=== PATIENT | male | born 1940 | race African-American/Black ===

== ENCOUNTER 2016-09-04 16:18 | Emergency (ER) | payer MEDICARE, MEDICAID ==
[~2016-09-04] VITALS: Ht 175.3 cm; Wt 84.0 kg
[~2016-09-04 16:18] MED LIST: AMLO10 PO; IRONCAP2 PO; LANTUSP SQ; NOVORP2 SQ; PRAV10 PO; STOO100T PO
[2016-09-04 16:19] VITALS: BP 213/116; PULSE 100; RESP 20; TEMP 97.7; O2SAT 99
[2016-09-04] MEDS ORDERED: PROPARACAINE HCL 0.5% OPHT SOLN 15 ML BTL LEFT EYE ONE (18:15)
--- NOTE | 2016-09-04 18:25 | PD ---
HPI Chief Complaint: Eye Problems/Injury Time Seen by Provider: 18:03 Travel History International Travel<30 days: No Contact w/Intl Traveler<30days: No Traveled to known affect area: No History of Present Illness HPI Patient is a 76 year old male who presents to ER with complaint of left sided eye irritation. Patient reports that he went to his yearly eye visit with (Dr. Pires) this morning around 8am this morning and had his eyes dilated, reports that he was told that everything was okay and that there were no new issues with his eyes. Patient reports that now, he has increased irritation to his left eye. Reports "it feels like there is junk in my left eye." Patient denies use of contacts, he does use glasses daily. Patient here for evaluation of possible FB in left eye. PFSH Past Medical History Arthritis: Yes (SHOULDERS) Blood Disorders: No Heart Rhythm Problems: No Cancer: No Cardiovascular Problems: Yes High Cholesterol: Yes Chest Pain: No Congestive Heart Failure: No Developmental Delay: Yes Diabetes: Yes (IDDM) Patient Takes Glucophage: No Diminished Hearing: Yes (need to speak up slightly) Endocrine: No Gastrointestinal Disorders: Yes GERD: No Glaucoma: No Genitourinary: No Hepatitis: No Hiatal Hernia: No Hypertension: Yes Immune Disorder: No Musculoskeletal: Yes Neurologic: No Psychiatric: No Reproductive: No Respiratory: No Immunizations Current: No Myocardial Infarction: No Thyroid Disease: No Ulcer: No Past Surgical History Surgical History: No Previous Surgery Abdominal Surgery: Yes (APPENDECTOMY 4YEARS OLD) AICD: No Appendectomy: Yes Arteriovenous Shunt: No Cardiac Surgery: No Cholecystectomy: No Ear Surgery: No Endocrine Surgery: No Eye Surgery: Yes (CATARACTS REMOVED, ) Genitourinary Surgery: No Insulin Pump: No Joint Replacement: No Oral Surgery: Yes (TOP TEETH PULLED) Pacemaker: No Thoracic Surgery: No Other Surgery: Yes Social History Alcohol Use: No Tobacco Use: No Substance Use: No Allergies-Medications (Allergen,Severity, Reaction): Coded Allergies: No Known Allergies (Verified , 09/04/16) Reported Meds & Prescriptions Reported Meds & Active Scripts Active Polymyxin B-Trimethoprim Opth (Trimethoprim-Polymyxin B Opth) 10,000-0.1 Unit/Ml -% Soln 2 Drop EACH EYE Q6HR Novolin R (Insulin Human Regular) 100 Units/Ml Inj 1-9 Units SQ TIDACHS Less than 200: No Additional Insulin 200-300: 3 Units Regular Insulin 300-400: 5 Units Regular Insulin 400-500: 7 Units Regular Insulin Greater than 500: 9 Units Regular Insulin, Call Doctor or come to ER. Reported Lantus (Insulin Glargine) 100 Units/Ml Inj 20 Units SQ DAILY@0600 Pravastatin Sodium (Pravastatin Sod) 10 Mg Tab 10 Mg PO DAILY Stool Softener (Miscellaneous Medication) 100 Mg Cap 100 Mg PO DAILY Norvasc (Amlodipine Besylate) 10 Mg Tab 10 Mg PO DAILY Iron Complex (Iron/Minerals/Multivitamins) Cap 1 Tab PO DAILY Review of Systems General / Constitutional: No: Fever Eyes: Positive: Redness, Foreign Body Sensation, Tearing, No: Diploplia, Blurred Vision, Photophobia, Drainage, Pain, Blind Spots, Visual changes, Blindness HENT: No: Headaches Cardiovascular: No: Chest Pain or Discomfort Respiratory: No: Shortness of Breath Gastrointestinal: No: Abdominal Pain Genitourinary: No: Dysuria Musculoskeletal: No: Pain Skin: No Rash Neurologic: No: Weakness Psychiatric: No: Depression Endocrine: No: Polydipsia Hematologic/Lymphatic: No: Easy Bruising Physical Exam Narrative GENERAL: Nad SKIN: Focused skin assessment warm/dry. HEAD: Atraumatic. Normocephalic. EYES: Pupils equal and round.Patient with injected left eye, no obvious FB ENT: No nasal bleeding or discharge. Mucous membranes pink and moist. CARDIOVASCULAR: Regular rate and rhythm. No murmur appreciated. RESPIRATORY: No accessory muscle use. Clear to auscultation. Breath sounds equal bilaterally. GASTROINTESTINAL: Abdomen soft, non-tender, nondistended. Hepatic and splenic margins not palpable. MUSCULOSKELETAL: No obvious deformities. No clubbing. No cyanosis. No edema. NEUROLOGICAL: Awake and alert. Normal speech. PSYCHIATRIC: Appropriate mood and affect; insight and judgment normal. Data Data Last Documented VS Vital Signs Date Time Temp Pulse Resp B/P Pulse Ox O2 Delivery O2 Flow Rate FiO2 09/04/16 16:19 97.7 100 20 213/116 99 Room Air Orders Proparacaine 0.5% Opth Soln (Alcaine 0.5 (09/04/16 18:15) Eye Irrigation (09/04/16 18:15) ^ Other Nursing Orders (09/04/16 18:21) Tetanus/Diphtheria Tox Adult (Tetanus/Di (09/04/16 19:30) MDM Medical Decision Making Medical Screen Exam Complete: Yes Emergency Medical Condition: Yes Interpretation(s) Vital Signs Date Time Temp Pulse Resp B/P Pulse Ox O2 Delivery O2 Flow Rate FiO2 09/04/16 16:19 97.7 100 20 213/116 99 Room Air Differential Diagnosis Foreign-body to left eye, conjunctival abrasion Narrative Course Patient is a 76-year-old male who presents to emergency room with complaints of left-sided eye foreign body sensation. Patient reports that he went to his agile scrum coach office today for an eye exam, reports that he had his eyes dilated around 8 AM this morning with Dr. Marlow, reports that he was told that there were no problems with his vision. Patient reports that this afternoon, he feels as if there is a foreign body and his left eye. On gross exam, there is no obvious foreign bodies seen. Plan to obtain visual acuity with glasses as patient does wear glasses not contacts. Will stain patient's eyes with flourisein and will check for corneal abrasions On flouriscein exam: patient with small corneal abrasion with no FB on eversion upper and lower eyelid. Discussed need for antibiotics. Patient will follow up with his agile scrum coach and will return to emergency room as needed. Diagnosis Primary Impression: Corneal abrasion, left Qualified Code: S05.02XA - Corneal abrasion, left, initial encounter Additional Instructions: Please follow-up with your agile scrum coach in 2-3 days Please use antibiotic eyedrops as prescribed Return to emergency room if symptoms worsen or progress Return to emergency room as needed Med/Other Pt SpecificInfo: Prescription(s) given Scripts Trimethoprim-Polymyxin B Opth (Polymyxin B-Trimethoprim Opth)10,000-0.1 Unit/Ml- % Soln2 Drop EACH EYE Q6HR #10 ML Prov:Radha Poole DO 09/04/16 Disposition: 01 DISCHARGE HOME Condition: Stable Radha Poole DO Sep 04, 2016 18:25
[2016-09-04] MEDS ORDERED: TRIMSOL3 EACH EYE (19:24)
[2016-09-04] MEDS ORDERED: TETANUS/DIPHTHERIA TOXOID ADULT 0.5 ML VIAL IM ONE (19:30)
== END 2016-09-04 19:54 | disposition home or self-care (01) ==
LOC: NEPD 16:18
DX: S05.02XA Injury of conjunctiva and corneal abrasion without foreign body, left eye, initial encounter (principal); X58.XXXA Exposure to other specified factors, initial encounter; Z23 Encounter for immunization
CPT/HCPCS: 90471; 90714

== ENCOUNTER 2017-02-19 11:25 | Inpatient (IN) | payer MEDICARE, MEDICAID ==
[2017-02-19] VITALS (11 sets, daily range): BP systolic 125–153; BP diastolic 76–92; PULSE 90–100; RESP 18–36; TEMP 97.7; O2SAT 96–100
[~2017-02-19] VITALS: Ht 180.3 cm; Wt 86.4 kg
[~2017-02-19 11:25] MED LIST changes: +TRIMSOL3 EACH EYE
[2017-02-19] MEDS ORDERED: HYDR-755 PO ×2 (11:48)
[2017-02-19] MEDS ORDERED: PRAV10TA PO ×2 (11:48)
[2017-02-19] MEDS ORDERED: MELO7.5T4 PO ×2 (11:48)
[2017-02-19] MEDS ORDERED: LEVO250T7 PO ×2 (11:48)
[2017-02-19] MEDS ORDERED: LANTUS2P SQ ×2 (11:48)
[2017-02-19] MEDS ORDERED: AMLO10TA2 PO ×2 (11:48)
[2017-02-19] MEDS ORDERED: SODIUM CHLOR 0.9% 1000 ML INJ 1,000 ML IV SCH ×4 (12:05→13:35)
[2017-02-19] MEDS ORDERED: SODIUM CHLOR 0.9% 1000 ML INJ 1,000 ML IV ONE ×8 (12:15→17:00)
[2017-02-19] MEDS ORDERED: SODIUM CHLORIDE 0.9% FLUSH 5 ML FLUSH IV FLUSH PRN ×2 (12:15)
[2017-02-19] MEDS ORDERED: INSULIN HUMAN REGULAR 1,000 UNITS/10 ML VIAL IV PUSH ONE ×2 (12:15)
--- NOTE | 2017-02-19 12:37 | RADRPT ---
EXAM DATE/TIME: 02/19/2017 12:16 [facility] COMPARISON: CHEST SINGLE AP, February 26, 2016, 10:42. INDICATIONS : Syncope. Found unresponsive in his apartment. MEDICAL HISTORY : None. SURGICAL HISTORY : None. ENCOUNTER: Initial ACUITY: 1 day PAIN SCORE: Non-responsive. LOCATION: Bilateral chest FINDINGS: 2 portable frontal views of the chest demonstrate the lungs to be symmetrically aerated without evide nce of mass, infiltrate or effusion. The cardiomediastinal contours are unremarkable. Osseous struc tures are intact. CONCLUSION: No acute disease. Dontrell Mcqueen Jr., MD on February 19, 2017 at 12:34 Board Certified Radiologist. This report was verified electronically.
[2017-02-19 12:51] LABS: AUTOMATED NEUTROPHIL # 7.6 TH/MM3 (1.8-7.7); BASOPHIL % 0.1 % (0.0-2.0); HEMATOCRIT 33.8 % (39.0-51.0); HEMOGLOBIN 10.6 GM/DL (13.0-17.0); LYMPH % 6.2 % (9.0-44.0); LYMPHOCYTE # 0.6 TH/MM3 (1.0-4.8); MEAN CELL VOLUME 94.8 FL (80.0-100.0); MEAN CORPUSCULAR HEMOGLOBIN 29.6 PG (27.0-34.0); MEAN CORPUSCULAR HGB CONC 31.3 % (32.0-36.0); MEAN PLATELET VOLUME 11.1 FL (7.0-11.0); MONO % 7.5 % (0.0-8.0); MONOCYTE # 0.7 TH/MM3 (0-0.9); NEUT % 86.2 % (16.0-70.0); RED BLOOD COUNT 3.57 MIL/MM3 (4.50-5.90); RED CELL DISTRIBUTION WIDTH 16.8 % (11.6-17.2); WHITE BLOOD COUNT 8.9 TH/MM3 (4.0-11.0)
[2017-02-19 12:54] LABS: LACTIC ACID SEPSIS PROTOCOL 4.3 mmol/L (0.4-2.0)
[2017-02-19 12:57] LABS: PROTHROMBIN TIME - PATIENT 22.9 SEC (9.8-11.6)
[2017-02-19 12:59] LABS: AMORPHOUS SEDIMENT, URINE RARE; BACTERIA, URINE RARE /hpf; BLOOD, URINE MOD (NEG); GLUCOSE,URINE 300 mg/dL (NEG); HYALINE CAST, URINE 12 /lpf (RARE); KETONE, URINE 10 mg/dL (NEG); NITRITE,URINE NEG (NEG); PH, URINE 5.5 (5.0-8.5); SQUAMOUS EPITHELIAL CELL URINE <1 /hpf (0-5); URINE COLOR YELLOW (YELLW/STRAW); URINE LEUKOCYTE ESTERASE NEG (NEG)
[2017-02-19 13:02] LABS: BILIRUBIN, URINE NEG (NEG)
[2017-02-19 13:06] LABS: ALBUMIN 2.8 GM/DL (3.4-5.0); BICARBONATE 17.8 MEQ/L (21.0-32.0); BLOOD UREA NITROGEN 93 MG/DL (7-18); CALCIUM 8.6 MG/DL (8.5-10.1); CHLORIDE 114 MEQ/L (98-107); SODIUM (NA) 147 MEQ/L (136-145)
[2017-02-19 13:12] LABS: PLATELET COUNT 97 TH/MM3 (150-450)
[2017-02-19 13:15] LABS: ACETAMINOPHEN LESS THAN 2.0 MCG/ML (10.0-30.0); ALKALINE PHOSPHATASE 57 U/L (45-117); ALT (GPT) 351 U/L (12-78); AST (GOT) 261 U/L (15-37); GLOMERULAR FILTRATION RATE 13 ML/MIN (>89); TOTAL BILIRUBIN ADULT 0.9 MG/DL (0.2-1.0); TOTAL PROTEIN 7.1 GM/DL (6.4-8.2)
[2017-02-19 13:18] LABS: GLUCOSE,RANDOM 592 MG/DL (74-106)
[2017-02-19 13:19] LABS: TROPONIN I 1.88 NG/ML (0.02-0.05)
--- NOTE | 2017-02-19 13:30 | RADRPT ---
EXAM DATE/TIME: 02/19/2017 13:02 [facility] COMPARISON: CT BRAIN W/O CONTRAST, April 17, 2012, 13:32. INDICATIONS : Altered mental status. RADIATION DOSE: 56.35 CTDIvol (mGy) MEDICAL HISTORY : Cardiovascular disease. Hypertension. Diabetes mellitus type 2. SURGICAL HISTORY : None. ENCOUNTER: Initial ACUITY: 1 day PAIN SCALE: 0/10 LOCATION: cranial TECHNIQUE: Multiple contiguous axial images were obtained of the head. Using automated exposure control and adj ustment of the mA and/or kV according to patient size, radiation dose was kept as low as reasonably a chievable to obtain optimal diagnostic quality images. DICOM format image data is available electro nically for review and comparison. FINDINGS: CEREBRUM: The ventricles are normal for age. There is mild diffuse cortical atrophy. No evidence of midline sh ift, mass lesion, hemorrhage or acute infarction. No extra-axial fluid collections are seen. POSTERIOR FOSSA: The cerebellum and brainstem are intact. The 4th ventricle is midline. The cerebellopontine angle i s unremarkable. EXTRACRANIAL: The visualized portion of the orbits is intact. SKULL: The calvaria is intact. No evidence of skull fracture. CONCLUSION: 1. Cortical atrophy. 2. No acute abnormality identified. The examination is stable compared to prior dated 04/17/12. Sharath Wang MD on February 19, 2017 at 13:27 Board Certified Radiologist. This report was verified electronically.
[2017-02-19] MEDS ORDERED: DEXT 5%-NACL 0.9% 1000 ML INJ 1,000 ML IV SCH ×2 (13:35)
[2017-02-19 13:40] LABS: OVALOCYTES 1+ (NORMAL)
[2017-02-19] MEDS ORDERED: SODIUM PHOSPHATE INJ 15 MMOL in SODIUM CHLORIDE 0.9% INJ 100 ML IV PRN ×4 (13:45)
[2017-02-19] MEDS ORDERED: CHLORHEXIDINE GLUCONATE 2 % 1 PACK (2 CLOTHS) TOP PRN ×4 (13:45→14:15)
[2017-02-19] MEDS ORDERED: SODIUM BICARBONATE 8.4% SOLN 50 MEQ/50 ML VIAL IV PUSH PRN ×4 (13:45)
[2017-02-19] MEDS ORDERED: MISCELLANEOUS NURSING INFORMATION XX SCH ×4 (13:45→14:15)
[2017-02-19] MEDS ORDERED: SENNOSIDES 8.6 MG TAB PO PRN ×2 (14:15)
[2017-02-19] MEDS ORDERED: RESP: ALBUTEROL 2.5 MG/IPRATROPIUM 0.5 MG NEB (PRN) INH ×2 (14:15)
[2017-02-19] MEDS ORDERED: MAGNESIUM HYDROXIDE SUSP 30 ML CUP PO PRN ×2 (14:15)
[2017-02-19] MEDS ORDERED: SODIUM CHLORIDE 0.9% FLUSH 10 ML FLUSH IV FLUSH PRN ×2 (14:15)
[2017-02-19] MEDS ORDERED: BISACODYL 10 MG SUPP RECTAL PRN ×2 (14:15)
[2017-02-19] MEDS ORDERED: LACTULOSE SYRUP 20 GM/30 ML CUP PO PRN ×2 (14:15)
--- NOTE | 2017-02-19 14:16 | PD ---
HPI Chief Complaint: Altered Mental Status Time Seen by Provider: 12:04 Travel History International Travel<30 days: No Contact w/Intl Traveler<30days: No Traveled to known affect area: No History of Present Illness HPI 77-year-old male came to the emergency room with history of being found down in his apartment. Unknown down time. Patient was altered mental status with a GCS of 13 as per EMS. He was in extremely poor hygiene state. Patient was unable to give much history. He follows commands to some extent but does not know what happened to him. Currently there are no family members to give any more history. EMS said his blood sugar was 560. Vital signs were otherwise stable. They did notice that he was tachypnea. Patient is a known diabetic and he had some Lantus insulin in his refrigerator. Patient did say that he has been using his insulin. [facility] Past Medical History Narrative Medical List of his past medical, surgical, social and family history is reviewed from the nursing note. Arthritis: Yes (SHOULDERS) Blood Disorders: No Heart Rhythm Problems: No Cancer: No Cardiovascular Problems: Yes High Cholesterol: Yes Chest Pain: No Congestive Heart Failure: No Developmental Delay: Yes Diabetes: Yes (IDDM) Patient Takes Glucophage: No Diminished Hearing: Yes (need to speak up slightly) Endocrine: No Gastrointestinal Disorders: Yes GERD: No Glaucoma: No Genitourinary: No Hepatitis: No Hiatal Hernia: No Hypertension: Yes Immune Disorder: No Musculoskeletal: Yes Neurologic: No Psychiatric: No Reproductive: No Respiratory: No Immunizations Current: No Myocardial Infarction: No Thyroid Disease: No Ulcer: No Tetanus Vaccination: < 5 Years Past Surgical History Abdominal Surgery: Yes (APPENDECTOMY 4YEARS OLD) AICD: No Appendectomy: Yes Arteriovenous Shunt: No Cardiac Surgery: No Cholecystectomy: No Ear Surgery: No Endocrine Surgery: No Eye Surgery: Yes (CATARACTS REMOVED, ) Genitourinary Surgery: No Insulin Pump: No Joint Replacement: No Oral Surgery: Yes (TOP TEETH PULLED) Pacemaker: No Thoracic Surgery: No Other Surgery: Yes Social History Alcohol Use: No Tobacco Use: No Substance Use: No Allergies-Medications (Allergen,Severity, Reaction): Coded Allergies: No Known Allergies (Verified , 02/19/17) Comments No known drug allergies. Reported Meds & Prescriptions Reported Meds & Active Scripts Active Reported Levofloxacin 250 Mg Tablet 250 Mg PO DAILY Meloxicam 7.5 Mg Tab 7.5 Mg PO DAILY Hydroxyzine HCl 10 Mg Tab 10 Mg PO TID Lantus Inj (Insulin Glargine) 1,000 Unit/10 Ml Vial 20 Units SQ HS Pravastatin 10 Mg Tab 10 Mg PO DAILY Amlodipine (Amlodipine Besylate) 10 Mg Tab 10 Mg PO DAILY Narrative Medication List of his home medications reviewed from the nursing note. Review of Systems ROS Limitations: Altered Mental Status Except as stated in HPI: all other systems reviewed are Neg Neurologic: Positive: Change in Mentation Physical Exam Narrative GENERAL: Altered mental status, GCS of 12, moderate distress SKIN: Focused skin assessment warm/dry. Extremely poor hygienic state HEAD: Atraumatic. Normocephalic. EYES: Pupils equal and round. No scleral icterus. No injection or drainage. ENT: No nasal bleeding or discharge. Dry mucous membrane and coated tongue, halitosis NECK: Trachea midline. No JVD. CARDIOVASCULAR: Regular rate and rhythm. No murmur appreciated. RESPIRATORY: No accessory muscle use. Clear to auscultation. Breath sounds equal bilaterally. GASTROINTESTINAL: Abdomen soft, non-tender, nondistended. Hepatic and splenic margins not palpable. MUSCULOSKELETAL: No obvious deformities. No clubbing. No cyanosis. No edema. NEUROLOGICAL: GCS of 12. Moving all 4 extremities. Slurred speech. PSYCHIATRIC: Unable to assess Data Data Last Documented VS Vital Signs Date Time Temp Pulse Resp B/P (MAP) Pulse Ox O2 Delivery O2 Flow Rate FiO2 02/19/17 13:00 96 18 145/76 (99) 97 Nasal Cannula 2.00 Orders Orders Electrocardiogram (02/19/17 12:05) Ammonia (02/19/17 12:05) Complete Blood Count With Diff (02/19/17 12:05) Comprehensive Metabolic Panel (02/19/17 12:05) Creatine Kinase (Cpk) (02/19/17 12:05) Prothrombin Time / Inr (Pt) (02/19/17 12:05) Troponin I (02/19/17 12:05) Thyroid Stimulating Hormone (02/19/17 12:05) Urinalysis - C+S If Indicated (02/19/17 12:05) Lactic Acid Sepsis Protocol (02/19/17 12:05) Blood Culture (02/19/17 12:05) Chest, Single Ap (02/19/17 12:05) Ct Brain W/O Iv Contrast(Rout) (02/19/17 12:05) Blood Glucose (02/19/17 12:05) Ecg Monitoring (02/19/17 12:05) Iv Access Insert/Monitor (02/19/17 12:05) Oximetry (02/19/17 12:05) Sodium Chloride 0.9% Flush (Ns Flush) (02/19/17 12:15) Sodium Chlor 0.9% 1000 Ml Inj (Ns 1000 M (02/19/17 12:05) Drug Screen, Random Urine (02/19/17 12:05) Alcohol (Ethanol) (02/19/17 12:05) Tylenol (Acetaminophen) (02/19/17 12:05) Salicylates (Aspirin) (02/19/17 12:05) Sodium Chlor 0.9% 1000 Ml Inj (Ns 1000 M (02/19/17 12:15) Blood Gas Venous (Vbg) (02/19/17 12:05) Beta Hydroxybutyrate (Acetone) (02/19/17 12:05) Magnesium (Mg) (02/19/17 12:07) Insulin Human Regular Inj (Novolin R Inj (02/19/17 12:15) Urinary Catheter Insert/Apply (02/19/17 12:43) Restraints Non-Violent SHANTA.Q3H (02/19/17 12:43) Sodium Chlor 0.9% 1000 Ml Inj (Ns 1000 M (02/19/17 13:00) Urine Culture (02/19/17 12:10) CKMB (02/19/17 12:05) CKMB% (02/19/17 12:05) Admit To Inpatient (02/19/17 ) Substance Abuse Prevention Coordinator / Telemetry SHANTA.Q8H (02/19/17 13:35) ^ Insert Iv (02/19/17 13:35) ^ Teach Patient (02/19/17 13:35) Diet Npo (02/19/17 Lunch) Bedside Glucose SHANTA.Q1H (02/19/17 13:35) Sodium Chlor 0.9% 1000 Ml Inj (Ns 1000 M (02/19/17 13:35) Dext 5%-Nacl 0.9% 1000 Ml Inj (D5w-Ns 10 (02/19/17 13:35) Insulin Regular (Iv Infusion) (Novolin R (02/19/17 15:00) Sodium Bicarbonate 8.4% Inj (Sodium Bica (02/19/17 13:45) Sodium Bicarbonate 8.4% Inj (Sodium Bica (02/19/17 13:45) Sodium Phosphate Inj (Sodium Phosphate I (02/19/17 13:45) Basic Metabolic Panel (Bmp) (02/20/17 06:35) Basic Metabolic Panel (Bmp) (02/20/17 12:35) Magnesium (Mg) (02/20/17 00:35) Magnesium (Mg) (02/20/17 06:35) Magnesium (Mg) (02/20/17 12:35) Phosphorus (Po4) (02/20/17 00:35) Phosphorus (Po4) (02/20/17 06:35) Phosphorus (Po4) (02/20/17 12:35) Beta Hydroxybutyrate (Acetone) (02/20/17 00:35) Beta Hydroxybutyrate (Acetone) (02/20/17 12:35) ^ Initiate Protocol (02/19/17 13:35) Instruction (02/19/17 13:35) [facility] [place] (02/19/17 13:45) Chlorhexidine 2% Cloth (Chlorhexidine 2% (02/20/17 04:00) Chlorhexidine 2% Cloth (Chlorhexidine 2% (02/19/17 13:45) Mrsa Pcr Surveillance (02/19/17 13:35) Urinary Catheter Management SHANTA.Q8H (02/19/17 14:10) Consult Cardiology (02/19/17 ) Admit Order (Ed Use Only) (02/19/17 14:17) Piperacil-Tazo 4.5 Gm Premix (Zosyn 4.5 (02/19/17 14:30) Vancomycin Inj (Vancomycin Inj) (02/19/17 14:30) Admit To Inpatient (02/19/17 ) Code Status (02/19/17 14:12) Vital Signs (Adult) SHANTA.Q1H (02/19/17 14:12) Activity Bed Rest (02/19/17 14:12) Urinary Catheter Management SHANTA.Q8H (02/19/17 15:00) Diet Npo (02/19/17 Dinner) Sodium Chloride 0.9% Flush (Ns Flush) (02/19/17 14:15) Sodium Chloride 0.9% Flush (Ns Flush) (02/19/17 21:00) Pantoprazole Inj (Protonix Inj) (02/20/17 09:00) Albuterol-Ipratropium Neb (Duoneb Neb) (02/19/17 16:00) Albuterol-Ipratropium Neb (Duoneb Neb) (02/19/17 14:15) Complete Blood Count With Diff (02/20/17 04:00) Comprehensive Metabolic Panel (02/20/17 04:00) Troponin I (02/19/17 14:12) Troponin I (02/19/17 20:12) Consult Nephrology (02/19/17 ) Substance Abuse Prevention Coordinator / Telemetry SHANTA.Q8H (02/19/17 14:12) Heparin Inj (Heparin Inj) (02/19/17 17:00) Scd Bilateral/Knee High SHANTA.BID (02/19/17 14:12) Harish Bilateral/Knee High SHANTA.QSHIFT (02/19/17 15:00) ^ Initiate Protocol (02/19/17 14:12) Instruction (02/19/17 14:12) Misc Nursing Information (02/19/17 14:15) Chlorhexidine 2% Cloth (Chlorhexidine 2% (02/20/17 04:00) Chlorhexidine 2% Cloth (Chlorhexidine 2% (02/19/17 14:15) Mrsa Pcr Surveillance (02/19/17 14:12) Docusate Sodium-Senna (Princess-Colace) (02/19/17 21:00) Magnesium Hydroxide Liq (Milk Of Magnesi (02/19/17 14:15) Sennosides (Senokot) (02/19/17 14:15) Bisacodyl Supp (Dulcolax Supp) (02/19/17 14:15) Lactulose Liq (Lactulose Liq) (02/19/17 14:15) Inpatient Certification (02/19/17 ) Basic Metabolic Panel (Bmp) (02/19/17 20:58) Magnesium (Mg) (02/19/17 20:58) Phosphorus (Po4) (02/19/17 20:58) Labs Laboratory Tests Test 02/19/17 12:05 02/19/17 12:10 02/19/17 12:23 White Blood Count 8.9 TH/MM3 Red Blood Count 3.57 MIL/MM3 Hemoglobin 10.6 GM/DL Hematocrit 33.8 % Mean Corpuscular Volume 94.8 FL Mean Corpuscular Hemoglobin 29.6 PG Mean Corpuscular Hemoglobin Concent 31.3 % Red Cell Distribution Width 16.8 % Platelet Count 97 TH/MM3 Mean Platelet Volume 11.1 FL Neutrophils (%) (Auto) 86.2 % Lymphocytes (%) (Auto) 6.2 % Monocytes (%) (Auto) 7.5 % Eosinophils (%) (Auto) 0.0 % Basophils (%) (Auto) 0.1 % Neutrophils # (Auto) 7.6 TH/MM3 Lymphocytes # (Auto) 0.6 TH/MM3 Monocytes # (Auto) 0.7 TH/MM3 Eosinophils # (Auto) 0.0 TH/MM3 Basophils # (Auto) 0.0 TH/MM3 CBC Comment AUTO DIFF Differential Comment AUTO DIFF CONFIRMED Platelet Estimate LOW Platelet Morphology Comment ENLARGED Ovalocytes 1+ Prothrombin Time 22.9 SEC Prothromb Time International Ratio 2.0 RATIO Blood Urea Nitrogen 93 MG/DL Creatinine 5.30 MG/DL Random Glucose 592 MG/DL Total Protein 7.1 GM/DL Albumin 2.8 GM/DL Calcium Level 8.6 MG/DL Alkaline Phosphatase 57 U/L Aspartate Amino Transf (AST/SGOT) 261 U/L Alanine Aminotransferase (ALT/SGPT) 351 U/L Total Bilirubin 0.9 MG/DL Sodium Level 147 MEQ/L Potassium Level 5.5 MEQ/L Chloride Level 114 MEQ/L Carbon Dioxide Level 17.8 MEQ/L Anion Gap 15 MEQ/L Estimat Glomerular Filtration Rate 13 ML/MIN Lactic Acid Level 4.3 mmol/L Ammonia 28 MCMOL/L Total Creatine Kinase 476 U/L Creatine Kinase MB 2.4 NG/ML Creatine Kinase MB % 0.5 % Troponin I 1.88 NG/ML Thyroid Stimulating Hormone 3rd Gen 1.280 uIU/ML Acetaminophen Level LESS THAN 2.0 MCG/ML Ethyl Alcohol Level LESS THAN 3 MG/DL B-Hydroxybutyrate 4.74 MMOL/L Urine Color YELLOW Urine Turbidity HAZY Urine pH 5.5 Urine Specific [place] 1.019 Urine Protein 300 mg/dL Urine Glucose (UA) 300 mg/dL Urine Ketones 10 mg/dL Urine Occult Blood MOD Urine Nitrite NEG Urine Bilirubin NEG Urine Urobilinogen 2.0 MG/DL Urine Leukocyte Esterase NEG Urine RBC 6 /hpf Urine WBC 3 /hpf Urine Squamous Epithelial Cells <1 /hpf Urine Amorphous Sediment RARE Urine Bacteria RARE /hpf Urine Hyaline Casts 12 /lpf Microscopic Urinalysis Comment CATH-CULTURE IND Urine Random Creatinine 299 MG/DL Urine Microalbumin/Creatinine Ratio 1204 MG/G CRE Magnesium Level 2.4 MG/DL Salicylates Level LESS THAN 1.7 MG/DL Urine Opiates Screen NEG Urine Barbiturates Screen NEG Urine Amphetamines Screen NEG Urine Benzodiazepines Screen NEG Urine Cocaine Screen NEG Urine Cannabinoids Screen NEG Blood Gas Puncture Site LINE Blood Gas Patient Temperature 98.6 Venous Blood pH 7.32 Venous Blood Partial Pressure CO2 30 mmHg Venous Blood Partial Pressure O2 33 mmHg Venous Blood HCO3 15 mmol/L Venous Blood Oxygen Saturation 46 % Venous Blood Oxygen Content 6.4 Vol % Venous Blood Base Excess -10.2 mmol/L Oxygen Delivery Device NASAL CANNULA Blood Gas Liter Flow 2 L/M MDM Medical Decision Making Medical Screen Exam Complete: Yes Emergency Medical Condition: Yes Medical Record Reviewed: Yes Interpretation(s) Twelve-lead EKG was reviewed by me. Normal sinus rhythm, normal axis, tachycardia, lateral ST depression and T-wave inversion, inferior T wave inversions. Heart rate of 101 bpm. Differential Diagnosis Sepsis, dehydration, intracranial bleed, DKA Narrative Course 2:13 PM Due to poor peripheral IV access capabilities, I decided to insert a central line. Please refer to my procedure note below. Blood test results are back. Patient is in acute renal failure. Also hypernatremic dehydration. UA suggestive of UTI. Troponin is elevated. Chest x-ray shows the central line to be in good position. Head CT was negative. Patient was given 3 L of IV fluid bolus upon arrival. Patient was also given Zosyn and vancomycin as sepsis protocol. He was given 10 units of insulin IV initially. Repeat blood sugar was 485. PH in his VBG was acidotic. I started him on insulin drip which is ordered for DKA. 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 Critical Care Narrative Aggregate critical care time was 75 minutes. Time to perform other separately billable procedures was not included in the critical care time. My time did not include minutes spent treating any other patients simultaneously or on activities that did not directly contribute to the patient's treatment. The services I provided to this patient were to treat and/or prevent clinically significant deterioration that could result in: Altered mental status, dehydration, acute renal failure, sepsis, sepsis protocol, DKA I provided critical care services requiring my management, as noted below: Chart data review, documentation time, medication orders and management, vital sign assessments/reviewing monitor data, ordering and reviewing lab tests, ordering and interpreting/reviewing x-rays and diagnostic studies, care of the patient and discussion of the patient with the admitting physicians. Procedures Procedure Narrative CENTRAL VENOUS LINE: The site was prepped with Betadine and sterilely draped. It was infiltrated with 1% lidocaine plain. The deep vein was cannulated using normal Seldinger technique. A triple lumen central line was placed in the left subclavian site and secured with simple interrupted suture. The site was sterilely dressed. The patient tolerated the procedure well. EKG Prior to Arrival: No Sepsis Criteria SIRS Criteria (2 or more): Heart rate over 90, RR > 20 or PaCO2 < 32 Sepsis Criteria (SIRS+source): Infect source susp/known Severe Sepsis (+one): Lactate >2, Acute Oliguria/Renal Failure Septic Shock Criteria: Lactic acid >=4 Criteria Outcome: Meets sepsis criteria Physician Communication Physician Communication Dr. Fraga Diagnosis Primary Impression: DKA (diabetic ketoacidoses) Qualified Codes: E10.11 - Type 1 diabetes mellitus with ketoacidosis with coma Additional Impressions: Altered mental status Qualified Codes: R40.0 - Somnolence Acute renal failure Qualified Codes: N17.9 - Acute kidney failure, unspecified Non-STEMI (non-ST elevated myocardial infarction) Dehydration with hypernatremia Sepsis Qualified Codes: A41.9 - Sepsis, unspecified organism UTI (urinary tract infection) Qualified Codes: N39.0 - Urinary tract infection, site not specified Admitting Information Admitting Physician Requests: Em Andrew MD Feb 19, 2017 14:16
[2017-02-19] MEDS ORDERED: VANCOMYCIN INJ 1,000 MG in SODIUM CHLOR 0.9% 250 ML INJ 250 ML IV ONE ×4 (14:30)
[2017-02-19] MEDS ORDERED: PIPERACIL-TAZO 4.5 GM PREMIX 100 ML IV ONE ×2 (14:30)
[2017-02-19] MEDS: INSULIN REGULAR (IV INFUSION) 100 UNITS in SODIUM CHLORIDE 0.9% INJ 99 ML IV SCH ×4 (14:37)
--- NOTE | 2017-02-19 14:54 | EKG ---
Date Performed: 02/19/2017 Time Performed: 12:07:55 PTAGE: 77 years EKG: SINUS TACHYCARDIA POSSIBLE LEFT ATRIAL ENLARGEMENT BORDERLINE RIGHT AXIS DEVIATION NONSPECI FIC INTRAVENTRICULAR CONDUCTION DELAY ST/ T-WAVE ABNORMALITY, CONSIDER INFERIOR ISCHEMIA ABNORMAL ECG PREVIOUS TRACING : 02/26/2016 10.55 Compared to previous tracing, PVCs are no longer present, l ateal ST/T changes are now slightly more pronounced, heart rate has increased. DOCTOR: Danny Sosa Interpretating Date/Time 02/19/2017 14:52:47
--- NOTE | 2017-02-19 15:04 | HHI.HP ---
[facility] Service Critical Care Medicine Primary Care Physician Unknown Admission Diagnosis AMS, acute renal failure, non-STEMI, hypernatremic dehydration Diagnosis: (1) Acute metabolic encephalopathy Diagnosis: Principal (2) Altered mental status Diagnosis: Principal (3) DKA (diabetic ketoacidoses) Diagnosis: Principal (4) Non-STEMI (non-ST elevated myocardial infarction) Diagnosis: Principal (5) Dehydration with hypernatremia Diagnosis: Principal (6) Sepsis Diagnosis: Principal (7) UTI (urinary tract infection) Diagnosis: Principal (8) Acute renal failure Diagnosis: Principal (9) Hyperglycemia Diagnosis: Principal (10) Lactic acidemia Diagnosis: Principal (11) Transaminitis Diagnosis: Principal (12) Respiratory insufficiency Diagnosis: Principal Chief Complaint: Altered mental status, DKA Travel History International Travel<30 Days: No Contact w/Intl Traveler <30 Da: No Traveled to Known Affected Are: No Sepsis Criteria SIRS Criteria (2 or more): Heart rate over 90, RR > 20 or PaCO2 < 32 Sepsis Criteria (SIRS+source): Infect source susp/known Severe Sepsis (+one): Acute Oliguria/Renal Failure Septic Shock Criteria: Lactic acid >=4 Multiple Organ Dysfunction Syn: Evidence -2 organs failing Criteria Outcome: Meets severe sepsis criteria History of Present Illness 77-year-old male with past medical history significant for type 2 diabetes on insulin, hypertension, dyslipidemia, questionable developmental delay who was brought to the emergency room after being found down in his apartment. Down time is unknown, was last seen normal on Thursday. GCS of 12-13 as per EMS, with very poor hygiene. EMS checked blood sugar and was 560. Patient was tachypneic in the ER. Clinically appeared very dehydrated, and was found to be in acute renal failure (baseline creat 1.8 to 2). BUN 93 creatinine 5.3. Patient was given 3 L normal saline boluses. Other abnormal labs included hemoglobin of 10.6, platelet 97, sodium 147 and a potassium of 5.5. Glucose was 592 AST was 261 and AST 351 and troponin was 1.88. Head CT was negative. Patient's beta hydroxybutyrate was elevated and anion gap was also elevated. Patient was given 10 units of IV insulin and was started on DKA protocol. Also given vancomycin and Zosyn for possible sepsis/UTI. I evaluated the patient in the ED. He is tachypneic intermittently. Oral mucosa is very dry and he has a garbled speech. Clinically very dehydrated. Additional fluid boluses ordered. His lactic acid came back at 4.4. Daughter is at the bedside she claims that patient was seen normally on Thursday. Patient will be admitted to ICU with broad-spectrum antibiotics, insulin infusion per DKA protocol, and aggressive fluid resuscitation. Nephrology and cardiology consults placed for acute renal failure and troponin elevation/non- ST elevation [place]. EKG showed poor R-wave progression and inferolateral T inversions. Patient was given aspirin. If troponin is also elevated and will start on IV heparin Review of Systems ROS Limitations: Altered Mental Status Past Family Social History Allergies: Coded Allergies: No Known Allergies (Verified , 02/19/17) Past Medical History Type 2 diabetes Hypertension Dyslipidemia Possible developmental delay Past Surgical History Cataract extraction Dental extraction Appendectomy Reported Medications Levofloxacin 250 Mg Tablet 250 Mg PO DAILY Meloxicam 7.5 Mg Tab 7.5 Mg PO DAILY Hydroxyzine HCl 10 Mg Tab 10 Mg PO TID Lantus Inj (Insulin Glargine) 1,000 Unit/10 Ml Vial 20 Units SQ HS Pravastatin 10 Mg Tab 10 Mg PO DAILY Amlodipine (Amlodipine Besylate) 10 Mg Tab 10 Mg PO DAILY Active Ordered Medications On insulin infusion per DKA protocol Family History Unable to obtain due to altered mentation Social History No alcohol or tobacco history per chart review Physical Exam Vital Signs Vital Signs Date Time Temp Pulse Resp B/P (MAP) Pulse Ox O2 Delivery O2 Flow Rate FiO2 02/19/17 14:34 97 18 138/77 (97) 99 Nasal Cannula 2.00 02/19/17 13:00 96 18 145/76 (99) 97 Nasal Cannula 2.00 02/19/17 12:19 30 99 Nasal Cannula 2.00 02/19/17 11:44 99 30 147/80 (102) 100 02/19/17 11:41 100 30 100 Room Air 02/19/17 11:31 100 36 136/80 (98) 96 Physical Exam GENERAL: 77-year-old disheveled male who is in moderate distress, tachypneic encephalopathic SKIN: Skin is warm/dry. Very poor personal hygiene HEAD: Atraumatic. Normocephalic. EYES: Pupils equal and round. No scleral icterus. No injection or drainage. ENT: No nasal bleeding or discharge. Oral mucosa is very dry NECK: Trachea midline. No JVD. CARDIOVASCULAR: Tachycardic. No murmur appreciated. RESPIRATORY: No accessory muscle use, but intermittently tachypneic. Clear to auscultation. Breath sounds equal bilaterally. GASTROINTESTINAL: Abdomen soft, non-tender, nondistended. Hepatic and splenic margins not palpable. MUSCULOSKELETAL: No obvious deformities. No clubbing. No cyanosis. No edema. NEUROLOGICAL: Patient is awake. Oriented to person only. Mumbles words. Moving all 4 extremity Laboratory Laboratory Tests Test 02/19/17 12:05 02/19/17 12:10 02/19/17 12:23 White Blood Count 8.9 Red Blood Count 3.57 Hemoglobin 10.6 Hematocrit 33.8 Mean Corpuscular Volume 94.8 Mean Corpuscular Hemoglobin 29.6 Mean Corpuscular Hemoglobin Concent 31.3 Red Cell Distribution Width 16.8 Platelet Count 97 Mean Platelet Volume 11.1 Neutrophils (%) (Auto) 86.2 Lymphocytes (%) (Auto) 6.2 Monocytes (%) (Auto) 7.5 Eosinophils (%) (Auto) 0.0 Basophils (%) (Auto) 0.1 Neutrophils # (Auto) 7.6 Lymphocytes # (Auto) 0.6 Monocytes # (Auto) 0.7 Eosinophils # (Auto) 0.0 Basophils # (Auto) 0.0 CBC Comment AUTO DIFF Differential Comment AUTO DIFF CONFIRMED Platelet Estimate LOW Platelet Morphology Comment ENLARGED Ovalocytes 1+ Prothrombin Time 22.9 Prothromb Time International Ratio 2.0 Blood Urea Nitrogen 93 Creatinine 5.30 Random Glucose 592 Total Protein 7.1 Albumin 2.8 Calcium Level 8.6 Alkaline Phosphatase 57 Aspartate Amino Transf (AST/SGOT) 261 Alanine Aminotransferase (ALT/SGPT) 351 Total Bilirubin 0.9 Sodium Level 147 Potassium Level 5.5 Chloride Level 114 Carbon Dioxide Level 17.8 Anion Gap 15 Estimat Glomerular Filtration Rate 13 Lactic Acid Level 4.3 Ammonia 28 Total Creatine Kinase 476 Creatine Kinase MB 2.4 Creatine Kinase MB % 0.5 Troponin I 1.88 Thyroid Stimulating Hormone 3rd Gen 1.280 Acetaminophen Level LESS THAN 2.0 Ethyl Alcohol Level LESS THAN 3 B-Hydroxybutyrate 4.74 Urine Color YELLOW Urine Turbidity HAZY Urine pH 5.5 Urine Specific [place] 1.019 Urine Protein 300 Urine Glucose (UA) 300 Urine Ketones 10 Urine Occult Blood MOD Urine Nitrite NEG Urine Bilirubin NEG Urine Urobilinogen 2.0 Urine Leukocyte Esterase NEG Urine RBC 6 Urine WBC 3 Urine Squamous Epithelial Cells <1 Urine Amorphous Sediment RARE Urine Bacteria RARE Urine Hyaline Casts 12 Microscopic Urinalysis Comment CATH-CULTURE IND Magnesium Level 2.4 Salicylates Level LESS THAN 1.7 Urine Opiates Screen NEG Urine Barbiturates Screen NEG Urine Amphetamines Screen NEG Urine Benzodiazepines Screen NEG Urine Cocaine Screen NEG Urine Cannabinoids Screen NEG Blood Gas Puncture Site LINE Blood Gas Patient Temperature 98.6 Venous Blood pH 7.32 Venous Blood Partial Pressure CO2 30 Venous Blood Partial Pressure O2 33 Venous Blood HCO3 15 Venous Blood Oxygen Saturation 46 Venous Blood Oxygen Content 6.4 Venous Blood Base Excess -10.2 Oxygen Delivery Device NASAL CANNULA Blood Gas Liter Flow 2 Date/Time Source Procedure Growth Status 02/19/17 12:10 Blood Peripheral Aerobic Blood Culture Pending Received 02/19/17 12:10 Blood Peripheral Anaerobic Blood Culture Pending Received 02/19/17 12:10 Urine Catheterized Urine Urine Culture Pending Received Result Diagram: 02/19/17 1205 02/19/17 1205 Imaging Chest x-ray no acute disease CT head cortical atrophy no acute findings Septic Shock Reassessment Heart: Other (tachycardic) Lungs: Clear Skin: Dry Peripheral Pulses: Weak Right Radial Capillary Refill: Sluggish Caprini VTE Risk Assessment Caprini VTE Risk Assessment: Mod/High Risk (score >= 2) Caprini Risk Assessment Model Point Value = 1 Point Value = 2 Point Value = 3 Point Value = 5 Age 41-60 Minor surgery BMI > 25 kg/m2 Swollen legs Varicose veins or History of unexplained or recurrent spontaneous Oral contraceptives or hormone replacement Sepsis (< 1 month) Serious lung disease, including pneumonia (< 1 month) Abnormal pulmonary function Acute myocardial infarction Congestive heart failure (< 1 month) History of inflammatory bowel disease Medical patient at bed rest Age 61-74 Arthroscopic surgery Major open surgery (> 45 min) Laparoscopic surgery (> 45 min) Malignancy Confined to bed (> 72 hours) Immobilizing plaster cast Central venous access Age >= 75 History of VTE Family history of VTE Factor V Leiden Prothrombin [id number] Lupus anticoagulant Anticardiolipin antibodies Elevated serum homocysteine Heparin-induced thrombocytopenia Other congenital or acquired thrombophilia Stroke (< 1 month) Elective arthroplasty Hip, pelvis, or leg fracture Acute spinal cord injury (< 1 month) Prophylaxis Regimen Total Risk Factor Score Risk Level Prophylaxis Regimen 0-1 Low Early ambulation 2 Moderate Order ONE of the following: *Sequential Compression Device (SCD) *Heparin 5000 units SQ BID 3-4 Higher Order ONE of the following medications: *Heparin 5000 units SQ TID *Enoxaparin/Lovenox 40 mg SQ daily (WT < 150 kg, CrCl > 30 mL/min) *Enoxaparin/Lovenox 30 mg SQ daily (WT < 150 kg, CrCl > 10-29 mL/min) *Enoxaparin/Lovenox 30 mg SQ BID (WT < 150 kg, CrCl > 30 mL/min) AND/OR *Sequential Compression Device (SCD) 5 or more Highest Order ONE of the following medications: *Heparin 5000 units SQ TID (Preferred with Epidurals) *Enoxaparin/Lovenox 40 mg SQ daily (WT < 150 kg, CrCl > 30 mL/min) *Enoxaparin/Lovenox 30 mg SQ daily (WT < 150 kg, CrCl > 10-29 mL/min) *Enoxaparin/Lovenox 30 mg SQ BID (WT < 150 kg, CrCl > 30 mL/min) AND *Sequential Compression Device (SCD) Assessment and Plan Assessment and Plan NEURO: Acute metabolic encephalopathy - Minimize sedation. Acute agitation with when necessary Haldol - Encephalopathy most likely secondary to DKA/hyperglycemia severe dehydration with uremia and probable sepsis RESP: Respiratory insufficiency - Tachypnea most likely secondary to metabolic acidosis, compensation - DuoNeb every 6 hours when necessary, bicarbonate IV as needed CV: Lactic acidemia NSTEMI Hypertension - Normal saline IV fluids, 5L bolus and maintenance fluid per DKA protocol - 2d echo, cardiology consult, cycle troponin - Placed on aspirin 81 mg daily. Start IV heparin if repeat troponin is high - Placed on metoprolol 25 mg every 8 hours - Avoid statins due to transaminitis GI: Transaminitis - Monitor liver enzymes most likely secondary to hypotension/severe dehydration - Liver ultrasound if transaminitis not improving : Acute on chronic kidney disease Severe dehydration Hyperkalemia - Baseline creatinine 1.8 to 2. Acute worsening secondary to severe dehydration and DKA - Continue aggressive fluid resuscitation - Monitor renal function closely. Place Scott catheter. - Nephrology consult - Hyperkalemia should improve with IV insulin infusion ID: Probable sepsis UTI - Received IV vancomycin and Zosyn in the ED. Continue Zosyn - F/U on blood and urine culture HEME: Anemia Mild thrombocytopenia -Monitor CBC, CMP -T12, iron studies ENDO: - Replace electrolytes carefully due to acute kidney failure - Hyperkalemia should improve with IV insulin PROPH: - Bilateral lower extremity SCDs. Heparin 5000 units sq q12 - IV Protonix 40 q24 hours LINES: - Left subclavian central line placed by Dr. Tobias in ED 02/19/17 CC time 55 min Code Status Full Discussed Condition With Dr. Tobias Problem Qualifiers (1) Altered mental status: Qualified Codes: R41.82 - Altered mental status, unspecified (2) DKA (diabetic ketoacidoses): (3) Sepsis: Qualified Codes: A41.9 - Sepsis, unspecified organism (4) UTI (urinary tract infection): (5) Acute renal failure: Qualified Codes: N17.9 - Acute kidney failure, unspecified Savi Fraga MD Feb 19, 2017 15:04
[2017-02-19] MEDS: ASPIRIN 81 MG CHEW TAB CHEW SCH ×2 (15:15)
[2017-02-19] MEDS: RESP: ALBUTEROL 2.5 MG/IPRATROPIUM 0.5 MG NEB (SCH) INH ×4 (16:15→20:19)
[2017-02-19] MEDS: METOPROLOL TARTRATE 25 MG TAB PO SCH ×4 (16:30→22:00)
[2017-02-19] MEDS ORDERED: SODIUM CHLOR 0.45% 1000 ML INJ 1,000 ML IV SCH ×2 (16:45)
[2017-02-19] MEDS ORDERED: SODIUM BICARBONATE 8.4% INJ 50 MEQ/50 ML SYR IV PUSH ONE ×2 (17:00)
--- NOTE | 2017-02-19 17:08 | PD.CONS ---
[facility] Service Nephrology Consult Requested By Reason for Consult Acute on CKD Primary Care Physician Unknown History of Present Illness This is a disheveled 77 y/o AAM. He was found down by his family, last seen on Thursday. Hx of DM II, HTN, hyperlipidemia. On arrival his labs were abnormal for the following: Cr 5.3, BUN 93, CO2 17.7, K 5.5, BG 592, Na 147. We were consulted to assist. His beta hydroxybutyrate came back elevated along with his troponin and lactic acid. He was given vanc and zosyn in the ER, started on DKA protocol with insulin gtt. He has received nearly 5 liters of NS. Looking through his records, in 2016 his creatinine ranged from 1.8-2. He is confused but denies taking any medications recently including insulin. Meloxicam is listed as a home medication as well. He has proteinuria, is making some urine but has only had 300 ml since valenzuela placement. He is unreliable per the HPI. His daughter is present, says he lives with a girlfriend. He is a full code. (Gely Dill) Review of Systems ROS Limitations: Altered Mental Status (Gely Dill) Past Family Social History Allergies: Coded Allergies: No Known Allergies (Verified , 02/19/17) Past Medical History Type 2 diabetes Hypertension Dyslipidemia Possible developmental delay Past Surgical History Cataract extraction Dental extraction Appendectomy Reported Medications This list was provided but the patient denies taking any medications Levofloxacin 250 Mg Tablet 250 Mg PO DAILY Meloxicam 7.5 Mg Tab 7.5 Mg PO DAILY Hydroxyzine HCl 10 Mg Tab 10 Mg PO TID Lantus Inj (Insulin Glargine) 1,000 Unit/10 Ml Vial 20 Units SQ HS Pravastatin 10 Mg Tab 10 Mg PO DAILY Amlodipine (Amlodipine Besylate) 10 Mg Tab 10 Mg PO DAILY Active Ordered Medications Current Medications Medications (Trade) Dose Ordered Sig/Fede Route Start Time Stop Time Status Last Admin Dextrose/Sodium Chloride 1,000 ml @ 200 mls/hr Q5H IV 02/19/17 13:35 Insulin Human Regular 100 units/ Sodium Chloride 100 ml @ 6.5 mls/hr TITRATE IV 02/19/17 15:00 02/19/17 14:37 (Sodium Bicarbonate 8.4% Inj) 100 meq UNSCH PRN IV PUSH 02/19/17 13:45 (Sodium Bicarbonate 8.4% Inj) 50 meq UNSCH PRN IV PUSH 02/19/17 13:45 Sodium Phosphate 15 mmol/Sodium Chloride 105 ml @ 25 mls/hr UNSCH PRN IV 02/19/17 13:45 (NS Flush) 2 ml UNSCH PRN IV FLUSH 02/19/17 14:15 (NS Flush) 2 ml BID IV FLUSH 02/19/17 21:00 (Protonix Inj) 40 mg DAILY IV PUSH 02/20/17 09:00 (Duoneb Neb) 1 ampule Q6HR NEB INH 02/19/17 16:00 02/19/17 16:15 (Duoneb Neb) 1 ampule Q4HR NEB PRN INH 02/19/17 14:15 (Heparin Inj) 5,000 units Q12H SQ 02/19/17 17:00 Miscellaneous Information 1 [id number] XX 02/19/17 14:15 (Chlorhexidine 2% Cloth) 3 pack Taper DAILY@04 TOP 02/20/17 04:00 02/16/18 03:59 (Chlorhexidine 2% Cloth) 3 pack UNSCH PRN TOP 02/19/17 14:15 (Princess-Colace) 1 tab BID PO 02/19/17 21:00 (Milk Of Magnesia Liq) 30 ml Q12H PRN PO 02/19/17 14:15 (Senokot) 17.2 mg Q12H PRN PO 02/19/17 14:15 (Dulcolax Supp) 10 mg DAILY PRN RECTAL 02/19/17 14:15 (Lactulose Liq) 30 ml DAILY PRN PO 02/19/17 14:15 (Aspirin Chew) 81 mg DAILY CHEW 02/19/17 15:15 Piperacillin Sod/ Tazobactam Sod 50 ml @ 100 mls/hr Q6H IV 02/19/17 21:00 Sodium Chloride 1,000 ml @ 999 mls/hr BOLUS ONCE IV 02/19/17 16:15 02/19/17 17:15 (Lopressor) 25 mg Q8HR PO 02/19/17 16:30 Sodium Chloride 1,000 ml @ 75 mls/hr [id number] IV 02/19/17 16:45 UNV Family History Daughter denies family history of renal disorders Social History He has a girlfriend, lives with her family is nearby and checks on him occasionally no smoking hx former ETOH full code retired (Gely Dill) Physical Exam Vital Signs Vital Signs Date Time Temp Pulse Resp B/P (MAP) Pulse Ox O2 Delivery O2 Flow Rate FiO2 02/19/17 16:11 90 32 153/88 (109) 100 Nasal Cannula 2.00 02/19/17 15:24 92 30 144/80 (101) 99 Nasal Cannula 2.00 02/19/17 14:34 97 18 138/77 (97) 99 Nasal Cannula 2.00 02/19/17 13:00 96 18 145/76 (99) 97 Nasal Cannula 2.00 02/19/17 12:19 30 99 Nasal Cannula 2.00 02/19/17 11:44 99 30 147/80 (102) 100 02/19/17 11:41 100 30 100 Room Air 02/19/17 11:31 100 36 136/80 (98) 96 Physical Exam Disheveled AAM patient, awake but disoriented; clinically looks dry S1/S2, RRR no murmurs Lungs clear Abdomen soft, non tender Valenzuela draining Ext: no edema Laboratory Laboratory Tests Test 02/19/17 12:05 02/19/17 12:10 02/19/17 12:23 02/19/17 15:25 White Blood Count 8.9 Red Blood Count 3.57 Hemoglobin 10.6 Hematocrit 33.8 Mean Corpuscular Volume 94.8 Mean Corpuscular Hemoglobin 29.6 Mean Corpuscular Hemoglobin Concent 31.3 Red Cell Distribution Width 16.8 Platelet Count 97 Mean Platelet Volume 11.1 Neutrophils (%) (Auto) 86.2 Lymphocytes (%) (Auto) 6.2 Monocytes (%) (Auto) 7.5 Eosinophils (%) (Auto) 0.0 Basophils (%) (Auto) 0.1 Neutrophils # (Auto) 7.6 Lymphocytes # (Auto) 0.6 Monocytes # (Auto) 0.7 Eosinophils # (Auto) 0.0 Basophils # (Auto) 0.0 CBC Comment AUTO DIFF Differential Comment AUTO DIFF CONFIRMED Platelet Estimate LOW Platelet Morphology Comment ENLARGED Ovalocytes 1+ Prothrombin Time 22.9 Prothromb Time International Ratio 2.0 Blood Urea Nitrogen 93 Creatinine 5.30 Random Glucose 592 Total Protein 7.1 Albumin 2.8 Calcium Level 8.6 Alkaline Phosphatase 57 Aspartate Amino Transf (AST/SGOT) 261 Alanine Aminotransferase (ALT/SGPT) 351 Total Bilirubin 0.9 Sodium Level 147 Potassium Level 5.5 Chloride Level 114 Carbon Dioxide Level 17.8 Anion Gap 15 Estimat Glomerular Filtration Rate 13 Lactic Acid Level 4.3 4.8 Ammonia 28 Total Creatine Kinase 476 Creatine Kinase MB 2.4 Creatine Kinase MB % 0.5 Troponin I 1.88 1.69 Thyroid Stimulating Hormone 3rd Gen 1.280 Acetaminophen Level LESS THAN 2.0 Ethyl Alcohol Level LESS THAN 3 B-Hydroxybutyrate 4.74 Urine Color YELLOW Urine Turbidity HAZY Urine pH 5.5 Urine Specific [place] 1.019 Urine Protein 300 Urine Glucose (UA) 300 Urine Ketones 10 Urine Occult Blood MOD Urine Nitrite NEG Urine Bilirubin NEG Urine Urobilinogen 2.0 Urine Leukocyte Esterase NEG Urine RBC 6 Urine WBC 3 Urine Squamous Epithelial Cells <1 Urine Amorphous Sediment RARE Urine Bacteria RARE Urine Hyaline Casts 12 Microscopic Urinalysis Comment CATH-CULTURE IND Magnesium Level 2.4 Salicylates Level LESS THAN 1.7 Urine Opiates Screen NEG Urine Barbiturates Screen NEG Urine Amphetamines Screen NEG Urine Benzodiazepines Screen NEG Urine Cocaine Screen NEG Urine Cannabinoids Screen NEG Blood Gas Puncture Site LINE Blood Gas Patient Temperature 98.6 Venous Blood pH 7.32 Venous Blood Partial Pressure CO2 30 Venous Blood Partial Pressure O2 33 Venous Blood HCO3 15 Venous Blood Oxygen Saturation 46 Venous Blood Oxygen Content 6.4 Venous Blood Base Excess -10.2 Oxygen Delivery Device NASAL CANNULA Blood Gas Liter Flow 2 Date/Time Source Procedure Growth Status 02/19/17 12:10 Blood Peripheral Aerobic Blood Culture Pending Received 02/19/17 12:10 Blood Peripheral Anaerobic Blood Culture Pending Received 02/19/17 12:10 Urine Catheterized Urine Urine Culture Pending Received (Gely Dill) Result Diagram: 02/19/17 1205 02/19/17 120 Imaging Last Impressions Head CT 02/19/171204 Signed Impressions: Service Date/Time: February 13:02 - CONCLUSION: 1. Cortical atrophy. 2. No acute abnormality identified. The examination is stable compared to prior dated 04/17/12. Sharath Wang MD Chest X-Ray 02/19/17 1205 Signed Impressions: Service Date/Time: February 12:16 - CONCLUSION: No acute disease. Dontrell Mcqueen Jr., MD (Gely Dill) Assessment and Plan Problem List: (1) Acute renal failure ICD Codes: N17.9 - Acute kidney failure, unspecified Status: Acute Plan: This patient has underlying renal impairment, creatinine 1.8-2 at baseline He has proteinuria, may have diabetic kidney disease. Quantify proteinuria. He also reportedly takes Meloxicam every day. HERVE likely due to dehydration, sepsis, DKA He is making some urine, suspected UTI Continue IVF, change to 1/2 NS in light of hypernatremia, he has been given nearly 5 liters since arrival Given bicarbonate also for metabolic acidosis K 5.5, monitor for now, should improve with bicarb administration Avoid nephrotoxins, renally dose medications when appropriate Obtain renal US Monitor urine output Dialysis is not imminent at this time. (2) DKA (diabetic ketoacidoses) ICD Codes: E13.10 - Other specified diabetes mellitus with ketoacidosis without coma Status: Acute Plan: On DKA protocol continue insulin gtt, IV fluids (3) Dehydration with hypernatremia ICD Codes: E87.0 - Hyperosmolality and hypernatremia Status: Acute Plan: clinically appears dry Change IVF at 100 cc/hr, 1/2 NS follow BMP (4) Sepsis ICD Codes: A41.9 - Sepsis, unspecified organism Status: Acute Plan: Elevated lactic acid Given vancomycin and zosyn. (5) Elevated troponin ICD Codes: R74.8 - Abnormal levels of other serum enzymes Plan: May have suffered an MO cardiology to evaluate, 2D echo ordered (Gely Dill) Assessment and Plan patient was seen and examined. Acute on CKD could be secondary to dehydration, but may have progressed to ATN. He has hypernatremia, change IVF to 1/2NS. Avoid nephrotoxic agents. Obtain renal US. Decrease IVF fluid administration rate. Monitor hyperkalemia, treat DKA with insulin drip. (Mc Quintanilla MD) Problem Qualifiers (1) Acute renal failure: Qualified Codes: N17.9 - Acute kidney failure, unspecified (2) DKA (diabetic ketoacidoses): (3) Sepsis: Qualified Codes: A41.9 - Sepsis, unspecified organism Gely Dill Feb 19, 2017 17:08 Mc Quintanilla MD Feb 19, 2017 20:36
[2017-02-19] MEDS: HEPARIN SODIUM - SQ 10,000 UNITS/ML VIAL SQ SCH ×2 (17:22)
--- NOTE | 2017-02-19 17:45 | RADRPT ---
EXAM DATE/TIME: 02/19/2017 17:19 [place] COMPARISON: No previous studies available for comparison. INDICATIONS : Increased BUN and creatinine. MEDICAL HISTORY : Hypercholesterolemia. Hypertension. Arthritis. Diabetes. Gastrointestinal disorders. SURGICAL HISTORY : Appendectomy. Cataracts removed. ENCOUNTER: Subsequent ACUITY: 1 day PAIN SCORE: 7/10 LOCATION: Bilateral flank MEASUREMENTS: RIGHT KIDNEY: 9.8 x 6.6 x 5.6 cm LEFT KIDNEY: 10.4 x 7.3 x 6.7 cm FINDINGS: RIGHT KIDNEY: Renal cortex is normal in thickness and echotexture. No hydronephrosis, stone, or mass. LEFT KIDNEY: Renal cortex is normal in thickness and echotexture. No hydronephrosis, stone, or mass. BLADDER: Collapse bladder with wall thickening and indwelling Scott CONCLUSION: No evidence of hydronephrosis. Indwelling Scott catheter with collapsed bladder in thickened bladder wall. Cal Tomlinson MD on February 19, 2017 at 17:42 Board Certified Radiologist. This report was verified electronically.
[2017-02-19] MEDS: DOCUSATE SODIUM 50 MG/SENNA 8.6 MG TAB PO SCH ×2 (21:00)
[2017-02-19] MEDS: PIPERACIL-TAZO 2.25 GM PREMIX 50 ML IV SCH ×2 (21:00)
[2017-02-19] MEDS: SODIUM CHLORIDE 0.9% FLUSH 10 ML FLUSH IV FLUSH SCH ×2 (21:00)
[2017-02-19] MEDS: MELATONIN 5 MG TAB PO PRN ×2 (22:21)
[2017-02-19 22:49] LABS: BICARBONATE 22.2 MEQ/L (21.0-32.0); BLOOD UREA NITROGEN 83 MG/DL (7-18); CALCIUM 8.1 MG/DL (8.5-10.1); CHLORIDE 122 MEQ/L (98-107); CREATININE 4.68 MG/DL (0.60-1.30); GLOMERULAR FILTRATION RATE 15 ML/MIN (>89); GLUCOSE,RANDOM 211 MG/DL (74-106); IRON (FE) 44 MCG/DL (65-175); SODIUM (NA) 155 MEQ/L (136-145)
[2017-02-19 22:50] LABS: PHOSPHORUS 2.7 MG/DL (2.5-4.9)
[2017-02-19 23:17] LABS: % SATURATION IRON PROFILE 28.8 % (20-50); TOTAL IRON BINDING CAPACITY 153 MCG/DL (250-450)
[2017-02-19 23:26] LABS: TROPONIN I 1.87 NG/ML (0.02-0.05)
[2017-02-20] VITALS (21 sets, daily range): BP systolic 85–123; BP diastolic 53–71; PULSE 67–103; RESP 12–32; TEMP 96.6–98.7; O2SAT 93–100
[2017-02-20] MEDS ORDERED: POTASSIUM CHLOR 40 MEQ PREMIX 100 ML IV ONE ×2 (00:15)
[2017-02-20] MEDS: DEXTROSE 5% IN WATE 1000ML INJ 1,000 ML IV SCH ×2 (00:16→08:59)
[2017-02-20] MEDS: INSULIN REGULAR (IV INFUSION) 100 UNITS in SODIUM CHLORIDE 0.9% INJ 99 ML IV SCH ×4 (00:30)
[2017-02-20] MEDS: PIPERACIL-TAZO 2.25 GM PREMIX 50 ML IV SCH ×8 (03:10→21:31)
[2017-02-20] MEDS: RESP: ALBUTEROL 2.5 MG/IPRATROPIUM 0.5 MG NEB (SCH) INH ×8 (03:50→21:02)
[2017-02-20 03:59] LABS: BASOPHIL % 0.2 % (0.0-2.0); EOSINOPHIL % 0.1 % (0.0-4.0); HEMATOCRIT 33.3 % (39.0-51.0); HEMOGLOBIN 10.6 GM/DL (13.0-17.0); LYMPH % 8.6 % (9.0-44.0); LYMPHOCYTE # 1.1 TH/MM3 (1.0-4.8); MEAN CELL VOLUME 91.8 FL (80.0-100.0); MEAN CORPUSCULAR HEMOGLOBIN 29.2 PG (27.0-34.0); MEAN CORPUSCULAR HGB CONC 31.8 % (32.0-36.0); MEAN PLATELET VOLUME 10.4 FL (7.0-11.0); MONO % 9.9 % (0.0-8.0); MONOCYTE # 1.2 TH/MM3 (0-0.9); NEUT % 81.2 % (16.0-70.0); PLATELET COUNT 76 TH/MM3 (150-450); RED BLOOD COUNT 3.62 MIL/MM3 (4.50-5.90); RED CELL DISTRIBUTION WIDTH 16.6 % (11.6-17.2); WHITE BLOOD COUNT 12.3 TH/MM3 (4.0-11.0)
[2017-02-20] MEDS: CHLORHEXIDINE GLUCONATE 2 % 1 PACK (2 CLOTHS) TOP SCH ×2 (04:00)
[2017-02-20] MEDS ORDERED: CHLORHEXIDINE GLUCONATE 2 % 1 PACK (2 CLOTHS) TOP SCH ×2 (04:00)
[2017-02-20 04:37] LABS: ACANTHOCYTES OCC (NORMAL); OVALOCYTES 1+ (NORMAL)
[2017-02-20 04:38] LABS: POLYCHROMASIA 2.2 % (0.0-1.9)
[2017-02-20] MEDS: METOPROLOL TARTRATE 25 MG TAB PO SCH ×8 (06:00→21:27)
[2017-02-20] MEDS: HEPARIN SODIUM - SQ 10,000 UNITS/ML VIAL SQ SCH ×4 (06:53→18:14)
[2017-02-20 07:20] LABS: ALBUMIN 2.5 GM/DL (3.4-5.0); BLOOD UREA NITROGEN 83 MG/DL (7-18); CALCIUM 7.9 MG/DL (8.5-10.1); CREATININE 4.72 MG/DL (0.60-1.30); GLOMERULAR FILTRATION RATE 15 ML/MIN (>89); GLUCOSE,RANDOM 55 MG/DL (74-106); TOTAL PROTEIN 6.4 GM/DL (6.4-8.2)
[2017-02-20 07:21] LABS: ALKALINE PHOSPHATASE 46 U/L (45-117); ALT (GPT) 300 U/L (12-78); AST (GOT) 184 U/L (15-37); BICARBONATE 20.5 MEQ/L (21.0-32.0); CHLORIDE 124 MEQ/L (98-107); MAGNESIUM 2.1 MG/DL (1.5-2.5); PHOSPHORUS 2.6 MG/DL (2.5-4.9); TOTAL BILIRUBIN ADULT 1.3 MG/DL (0.2-1.0)
[2017-02-20 07:32] LABS: SODIUM (NA) 156 MEQ/L (136-145)
--- NOTE | 2017-02-20 09:01 | MB ---
cc: ARLINE WADE MD DATE OF CONSULTATION 02/20/2017 HISTORY This is a 77-year-old gentleman who was brought to the emergency department after being found in his apartment unconscious. He is awake now, but does not answer questions except to mumble and coherent speech is not present. History comes from chart and nursing. Apparently was seen by EMS with poor hygiene, states, "I was brought to the emergency department." He is a diabetic and was found to have diabetic ketoacidosis. We have been asked to see him in so much as in his troponins are elevated. As noted above, the patient is unreliable and not answering questions coherently. Apparently at least from the chart, there is no prior GA or admissions for chest pain. PAST MEDICAL HISTORY Does appear to be significant for: 1. Type 2 diabetes 2. Hypertension MEDICATIONS AT HOME 1. Levofloxacin 250 mg daily 2. Meloxicam 7.5 daily 3. Hydroxyzine 10 mg three times a day a 4. Lantus insulin 20 units subcu at bedtime 5. Pravastatin 10 mg daily 6. Amlodipine 10 mg daily ALLERGIES None SOCIAL HISTORY Unknown, but there is no reported use alcohol, tobacco or recreational drugs. PHYSICAL EXAM On physical exam now, he is awake and responsive. VITAL SIGNS: Blood pressure is 90/70, pulse is 90 and regular. NECK: There is no neck vein distension. CARDIOVASCULAR: Exam reveals quiet heart tones. No significant murmur is present. There is no gallop. ABDOMEN: Soft. There is no tenderness or organomegaly. EXTREMITIES: Reveal no edema. LABORATORY DATA Laboratory examination shows a normal chest x-ray and head CT shows no acute abnormality. His troponins are indeed elevated, but had been somewhat flat at 0.87, 1.88 and 1.69 and 1.87. He has had acute renal failure with a creatinine initially of 5.3 with a follow-up of 4.72. His electrolytes have been corrected although he is still remains markedly dehydrated with a sodium of 156. His electrocardiogram shows sinus tachycardia. There are some inferior T-wave changes, but no ST-segment shifts are noted. ASSESSMENT The patient has diabetic ketoacidosis with acute renal failure and marked dehydration. He is being rehydrated and his DK is being addressed by endocrinology. His troponins are somewhat flat and I suspect they are demand mediated. We will order an echocardiogram for further evaluation. In the meantime, there is no evidence to suggest acute GA, although he may have some underlying coronary disease. Certainly will continue his supportive care and consider ischemic workup once his electrolytes and hemodynamics are stabilized. MD LIZET Karimi/ERAN /8:32 AM /8:46 AM
[2017-02-20] MEDS: DOCUSATE SODIUM 50 MG/SENNA 8.6 MG TAB PO SCH ×4 (09:04→21:27)
[2017-02-20] MEDS: PANTOPRAZOLE SODIUM 40 MG VIAL IV PUSH SCH ×2 (09:04)
[2017-02-20] MEDS: SODIUM CHLORIDE 0.9% FLUSH 10 ML FLUSH IV FLUSH SCH ×4 (09:05→21:28)
[2017-02-20] MEDS: ASPIRIN 81 MG CHEW TAB CHEW SCH ×2 (09:08)
[2017-02-20 09:17] LABS: BICARBONATE 15.9 MEQ/L (21.0-32.0); CALCIUM 8.3 MG/DL (8.5-10.1); CREATININE 4.89 MG/DL (0.60-1.30); MAGNESIUM 2.1 MG/DL (1.5-2.5); PHOSPHORUS 3.7 MG/DL (2.5-4.9)
[2017-02-20] MEDS ORDERED: DC previous DKA orders (HMC 1917) ONE ×2 (09:30)
[2017-02-20] MEDS: INSULIN DETEMIR 100 UNITS/ML VIAL SQ SCH ×4 (09:30→21:28)
[2017-02-20] MEDS ORDERED: DC Insulin drip 2 hrs post basal insulin dose ONE ×2 (09:30)
[2017-02-20] MEDS ORDERED: DEXTROSE 50% IN WATER 50 ML VIAL(D50) IV PUSH PRN (09:30)
[2017-02-20] MEDS ORDERED: GLUCAGON 1 MG/ML VIAL OTHER PRN ×2 (09:30)
--- NOTE | 2017-02-20 09:34 | HHI.CCPN ---
Subjective Remarks/Hospital Course 77-year-old male with past medical history significant for type 2 diabetes on insulin, hypertension, dyslipidemia, questionable developmental delay who was brought to the emergency room after being found down in his apartment. Down time is unknown, was last seen normal on Thursday. GCS of 12-13 as per EMS, with very poor hygiene. EMS checked blood sugar and was 560. Patient was tachypneic in the ER. Clinically appeared very dehydrated, and was found to be in acute renal failure (baseline creat 1.8 to 2). BUN 93 creatinine 5.3. Patient was given 3 L normal saline boluses. Other abnormal labs included hemoglobin of 10.6, platelet 97, sodium 147 and a potassium of 5.5. Glucose was 592 AST was 261 and AST 351 and troponin was 1.88. Head CT was negative. Patient's beta hydroxybutyrate was elevated and anion gap was also elevated. Patient was given 10 units of IV insulin and was started on DKA protocol. Also given vancomycin and Zosyn for possible sepsis/UTI. I evaluated the patient in the ED. He is tachypneic intermittently. Oral mucosa is very dry and he has a garbled speech. Clinically very dehydrated. Additional fluid boluses ordered. His lactic acid came back at 4.4. Daughter is at the bedside she claims that patient was seen normally on Thursday. Patient will be admitted to ICU with broad-spectrum antibiotics, insulin infusion per DKA protocol, and aggressive fluid resuscitation. Nephrology and cardiology consults placed for acute renal failure and troponin elevation/non- ST elevation DE. EKG showed poor R-wave progression and inferolateral T inversions. Patient was given aspirin. If troponin is also elevated and will start on IV heparin SUBJ 02/20: Oriented to person. Dehydration clinically improving. Creatinine remains elevated at 4.89, BUN improved to 84. Anion gap has closed but hydroxybutyrate normalized. Urine output noted mL since admission and after Scott placed, that is approximately 16 hours. Objective Vital Signs Date Time Temp Pulse Resp B/P (MAP) Pulse Ox O2 Delivery O2 Flow Rate FiO2 02/20/17 08:24 98 Nasal Cannula 2.00 02/20/17 06:00 73 02/20/17 04:00 27 85/60 (68) 02/20/17 00:00 96.6 Intake and Output 10/02/20/17 02/21/17 08:00 16:00 00:00 Intake Total 765 ml Output Total 400 ml Balance 365 ml Result Diagram: 02/20/17 0319 02/20/17 0755 Other Results Laboratory Tests Test 02/19/17 12:23 Blood Gas Puncture Site LINE Blood Gas Patient Temperature 98.6 Venous Blood pH 7.32 (7.360-7.400) Venous Blood Partial Pressure CO2 30 mmHg (44-48) Venous Blood Partial Pressure O2 33 mmHg (35-40) Venous Blood HCO3 15 mmol/L (22-26) Venous Blood Oxygen Saturation 46 % (70-76) Venous Blood Oxygen Content 6.4 Vol % (9.0-17.0) Venous Blood Base Excess -10.2 mmol/L (-2-2) Oxygen Delivery Device NASAL CANNULA Blood Gas Liter Flow 2 L/M Imaging Chest x-ray no acute disease CT head cortical atrophy no acute findings Objective Remarks GENERAL: 77-year-old disheveled male who is lying in be no acute distress SKIN: Skin is warm/dry. Poor personal hygiene HEAD: Atraumatic. Normocephalic. EYES: Pupils equal and round. No scleral icterus. No injection or drainage. ENT: No nasal bleeding or discharge. Oral mucosa is very dry NECK: Trachea midline. No JVD. CARDIOVASCULAR: Tachycardic. No murmur appreciated. RESPIRATORY: No accessory muscle use, Clear to auscultation. Breath sounds equal bilaterally. GASTROINTESTINAL: Abdomen soft, non-tender, nondistended. Hepatic and splenic margins not palpable. MUSCULOSKELETAL: No obvious deformities. No clubbing. No cyanosis. No edema. NEUROLOGICAL: Patient is awake. Oriented to person only. Mumbles words. Moving all 4 extremity Urinary Catheter: Yes Assessment to: Continue A/P Assessment and Plan NEURO: Acute metabolic encephalopathy - Minimize sedation. Treat agitation with when necessary Haldol - Encephalopathy most likely secondary to DKA/hyperglycemia severe dehydration with uremia and probable sepsis RESP: Respiratory insufficiency - Tachypnea most likely secondary to metabolic acidosis, improved - DuoNeb every 6 hours when necessary, bicarbonate IV as needed CV: Lactic acidemia NSTEMI Hypertension - Normal saline IV fluids, 5L bolus given on admission and maintenance fluid 1/ 2 NS at 84 ml per hour - 2d echo pending, cardiology consult appreciated. Dr Quintanilla - Aspirin 81 mg daily. No IV heparin if repeat troponin is high - Metoprolol 25 mg every 8 hours - Avoid statins due to transaminitis GI: Transaminitis - Monitor liver enzymes most likely secondary to hypotension/severe dehydration - Liver ultrasound today : Acute on chronic kidney disease Severe dehydration Hyperkalemia - Baseline creatinine 1.8 to 2. Acute worsening secondary to severe dehydration and DKA - Continue aggressive fluid resuscitation - Monitor renal function closely. Place Scott catheter. - Nephrology consulted Dr. Quintanilla seeing - Hyperkalemia improved with IV insulin infusion ID: Probable sepsis UTI - Received IV vancomycin and Zosyn in the ED. Continue Zosyn - F/U on blood and urine culture negative to date HEME: Anemia Mild thrombocytopenia -Monitor CBC, CMP -B12 normal, iron studies indicate anemia of chronic disease ENDO: DKA-resolved - DC DKA protocol, transition orders written - Replace electrolytes carefully due to acute kidney failure - Hyperkalemia improving with IV insulin PROPH: - Bilateral lower extremity SCDs. Heparin 5000 units sq q12. Monitor platelet count closely - IV Protonix 40 q24 hours LINES: - Left subclavian central line placed by Dr. Tobias in ED 02/19/17 Level 3 Consult [facility] to assume Savi Fraga MD Feb 20, 2017 09:34
[2017-02-20] MEDS ORDERED: HALOPERIDOL LACTATE 5 MG/ML AMP IV PRN ×2 (09:45)
[2017-02-20] MEDS: SODIUM CHLOR 0.45% 1000 ML INJ 1,000 ML IV SCH ×4 (10:00→14:39)
--- NOTE | 2017-02-20 10:55 | HHI.NPPN ---
Subjective General Problems: Mebatolic Acidosis Renal Failure: Chronic, Acute Interval History He remains confused, mumbles, is restrained. Off insulin gtt. Renal function is worse. He is making urine. Hypernatremia is worse compared to admission. (Gely Dill) Objective Data Data Vital Signs Date Time Temp Pulse Resp B/P (MAP) Pulse Ox O2 Delivery O2 Flow Rate FiO2 02/20/17 08:24 98 Nasal Cannula 2.00 02/20/17 06:00 73 02/20/17 04:00 69 02/20/17 04:00 69 27 85/60 (68) 02/20/17 02:00 74 02/20/17 00:00 103 02/20/17 00:00 96.6 103 30 123/62 (82) 96 02/19/17 22:00 92 02/19/17 20:19 99 Nasal Cannula 2.00 02/19/17 20:00 91 02/19/17 20:00 97.7 91 23 139/89 (106) 100 02/19/17 18:01 Nasal Cannula 2.00 02/19/17 17:44 02/19/17 17:20 97 26 125/92 (103) 97 Nasal Cannula 2.00 02/19/17 16:11 90 32 153/88 (109) 100 Nasal Cannula 2.00 02/19/17 15:24 92 30 144/80 (101) 99 Nasal Cannula 2.00 02/19/17 14:34 97 18 138/77 (97) 99 Nasal Cannula 2.00 02/19/17 13:00 96 18 145/76 (99) 97 Nasal Cannula 2.00 02/19/17 12:19 30 99 Nasal Cannula 2.00 02/19/17 11:44 99 30 147/80 (102) 100 02/19/17 11:41 100 30 100 Room Air 02/19/17 11:31 100 36 136/80 (98) 96 (Gely Dill) -: 02/20/17 0319 02/20/17 0755 Microbiology 02/19/17 Aerobic Blood Culture, Received Pending 02/19/17 Anaerobic Blood Culture, Received Pending 02/19/17 Aerobic Blood Culture, Received Pending 02/19/17 Anaerobic Blood Culture, Received Pending 10/12/17 Urine Culture, Received Pending Imaging Last [address] 02/19/17 1205 Signed Impressions: Service Date/Time: , February 19, 2017 13:02 - CONCLUSION: 1. Cortical atrophy. 2. No acute abnormality identified. The examination is stable compared to prior dated 04/17/12. Sharath Wang MD Chest X-Ray 02/19/17 1205 Signed Impressions: Service Date/Time: , February 19, 2017 12:16 - CONCLUSION: No acute disease. Dontrell Mcqueen Jr., MD Renal Ultrasound 02/19/17 0000 Signed Impressions: Service Date/Time: , February 19, 2017 17:19 - CONCLUSION: No evidence of hydronephrosis. Indwelling Scott catheter with collapsed bladder in thickened bladder wall. Cal Tomlinson MD Tubes & Lines: Scott Drip Comment D5W (Gely Dill B. TRAFFIC WORKFORCE REPRESENTATIVE) Physical Exam General Appearance: No Acute Distress, Comfortable, Malnourished Appearance Remarks Disheveled, mumbles to questions (Gely Dill B. TRAFFIC WORKFORCE REPRESENTATIVE) Eyes Eye Exam: Pupils Equal (AniyahGely B. TRAFFIC WORKFORCE REPRESENTATIVE) Throat Throat Exam: Oral Mucosa [place] & Moist (AniyahGely B. TRAFFIC WORKFORCE REPRESENTATIVE) Pulmonary Resp Exam: Clear Bilaterally, Breath Sounds Equal (AniyahGely B. TRAFFIC WORKFORCE REPRESENTATIVE) Cardiology CV Exam: Regular, Normal Sinus Rhythm (AniyahGely B. TRAFFIC WORKFORCE REPRESENTATIVE) Gastrointestinal/Abdomen GI Exam: Soft, Non-Tender, Bowel Sounds Present (AniyahGely B. TRAFFIC WORKFORCE REPRESENTATIVE) Musculoskeletal MS Exam: Joints Intact, Normal Tone, Unable to Ambulate (AniyahGely B. TRAFFIC WORKFORCE REPRESENTATIVE) Integumentary Skin Exam: Clear, Warm, Dry, Intact (AniyahGely B. TRAFFIC WORKFORCE REPRESENTATIVE) Extremeties Extremities Exam: No Edema, Pedal Pulses Palpable (AniyahGely B. TRAFFIC WORKFORCE REPRESENTATIVE) Neurologic Neuro Exam: Awake, Obtunded Neuro Remarks incomprehensible speech (Gely Dill B. TRAFFIC WORKFORCE REPRESENTATIVE) Assessment/Plan Assessment Summary: HERVE/Acute Renal Failure, Diabetes Mellitus Electrolyte Assessment: Hypernatremia, Metabolic Acidosis Problem List: (1) Acute renal failure ICD Codes: N17.9 - Acute kidney failure, unspecified Status: Acute Plan: This patient has underlying renal impairment, creatinine 1.8-2 at baseline He has 1.2 g proteinuria, which 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 HERVE likely due to dehydration, sepsis, DKA, may have progressed to ATN Renal function is worse today He is non oliguric Renal US negative for obstruction Continue IVF He has metabolic acidosis but avoid bicarbonate given hypernatremia Avoid nephrotoxins, renally dose medications when appropriate If his renal function continues to decline, he may require dialysis. Although palliative care consultation may be appropriate given living situation (2) Dehydration with hypernatremia ICD Codes: E87.0 - Hyperosmolality and hypernatremia Status: Acute Plan: IVF changed to D5W PO water intake encouraged, I have asked the nurse to attempt to hydrate Follow serum Na levels (3) DKA (diabetic ketoacidoses) ICD Codes: E13.10 - Other specified diabetes mellitus with ketoacidosis without coma Status: Acute Plan: Improving, off Insulin gtt follow glucose. (4) Sepsis ICD Codes: A41.9 - Sepsis, unspecified organism Status: Acute Plan: Elevated lactic acid Given vancomycin, now on zosyn. (5) Elevated troponin ICD Codes: R74.8 - Abnormal levels of other serum enzymes Plan: cardiology has evaluated suspect demand ischemia as etiology of elevated troponin levels 2D echo has been ordered (Gely Dill) Plan patient was seen and examined. Encephalopathic. Renal function is worse. Urine output has decreased significantly. Hypernatremia is noted. (Mc Quintanilla MD) Problem Qualifiers (1) Acute renal failure: Qualified Codes: N17.9 - Acute kidney failure, unspecified (2) DKA (diabetic ketoacidoses): (3) Sepsis: Qualified Codes: A41.9 - Sepsis, unspecified organism Gely Dill Feb 20, 2017 10:55 Mc Quintanilla MD Feb 20, 2017 16:28
--- NOTE | 2017-02-20 10:55 | HHI.NPPN ---
Subjective General Problems: Mebatolic Acidosis Renal Failure: Chronic, Acute Interval History He remains confused, mumbles, is restrained. Off insulin gtt. Renal function is worse. He is making urine. Hypernatremia is worse compared to admission. (Gely Dill) Objective Data Data Vital Signs Date Time Temp Pulse Resp B/P (MAP) Pulse Ox O2 Delivery O2 Flow Rate FiO2 02/20/17 08:24 98 Nasal Cannula 2.00 02/20/17 06:00 73 02/20/17 04:00 69 02/20/17 04:00 69 27 85/60 (68) 02/20/17 02:00 74 02/20/17 00:00 103 02/20/17 00:00 96.6 103 30 123/62 (82) 96 02/19/17 22:00 92 02/19/17 20:19 99 Nasal Cannula 2.00 02/19/17 20:00 91 02/19/17 20:00 97.7 91 23 139/89 (106) 100 02/19/17 18:01 Nasal Cannula 2.00 02/19/17 17:44 02/19/17 17:20 97 26 125/92 (103) 97 Nasal Cannula 2.00 02/19/17 16:11 90 32 153/88 (109) 100 Nasal Cannula 2.00 02/19/17 15:24 92 30 144/80 (101) 99 Nasal Cannula 2.00 02/19/17 14:34 97 18 138/77 (97) 99 Nasal Cannula 2.00 02/19/17 13:00 96 18 145/76 (99) 97 Nasal Cannula 2.00 02/19/17 12:19 30 99 Nasal Cannula 2.00 02/19/17 11:44 99 30 147/80 (102) 100 02/19/17 11:41 100 30 100 Room Air 02/19/17 11:31 100 36 136/80 (98) 96 (Gely Dill) -: 02/20/17 0319 02/20/17 0755 Microbiology 02/19/17 Aerobic Blood Culture, Received Pending 02/19/17 Anaerobic Blood Culture, Received Pending 02/19/17 Aerobic Blood Culture, Received Pending 02/19/17 Anaerobic Blood Culture, Received Pending 10/12/17 Urine Culture, Received Pending Imaging Last [address] 02/19/17 1205 Signed Impressions: Service Date/Time: , February 19, 2017 13:02 - CONCLUSION: 1. Cortical atrophy. 2. No acute abnormality identified. The examination is stable compared to prior dated 04/17/12. Sharath Wang MD Chest X-Ray 02/19/17 1205 Signed Impressions: Service Date/Time: , February 19, 2017 12:16 - CONCLUSION: No acute disease. Dontrell Mcqueen Jr., MD Renal Ultrasound 02/19/17 0000 Signed Impressions: Service Date/Time: , February 19, 2017 17:19 - CONCLUSION: No evidence of hydronephrosis. Indwelling Scott catheter with collapsed bladder in thickened bladder wall. Cal Tomlinson MD Tubes & Lines: Scott Drip Comment D5W (Gely Dill B. DIRECTOR OF COMMUNITY CENTER) Physical Exam General Appearance: No Acute Distress, Comfortable, Malnourished Appearance Remarks Disheveled, mumbles to questions (Gely Dill B. DIRECTOR OF COMM[employer]) Eyes Eye Exam: Pupils Equal (AniyahGely B. DIRECTOR OF [employer]) Throat Throat Exam: Oral Mucosa [place] & Moist (AniyahGely B. [employer]OR OF [employer]) Pulmonary Resp Exam: Clear Bilaterally, Breath Sounds Equal (AniyahGely B. [employer] OF [employer]) Cardiology CV Exam: Regular, Normal Sinus Rhythm (AniyahGely B. [employer]OR OF [employer]) Gastrointestinal/Abdomen GI Exam: Soft, Non-Tender, Bowel Sounds Present (AniyahGely B. [employer]) Musculoskeletal MS Exam: Joints Intact, Normal Tone, Unable to Ambulate (AniyahGely B. DIRECTOR OF [employer]) Integumentary Skin Exam: Clear, Warm, Dry, Intact (AniyahGely B. [employer] OF [employer]) Extremeties Extremities Exam: No Edema, Pedal Pulses Palpable (AniyahGely B. [employer]OR OF [employer]) Neurologic Neuro Exam: Awake, Obtunded Neuro Remarks incomprehensible speech (Gely Dill B. DIRECTOR OF COMM[employer]) Assessment/Plan Assessment Summary: HERVE/Acute Renal Failure, Diabetes Mellitus Electrolyte Assessment: Hypernatremia, Metabolic Acidosis Problem List: (1) Acute renal failure ICD Codes: N17.9 - Acute kidney failure, unspecified Status: Acute Plan: This patient has underlying renal impairment, creatinine 1.8-2 at baseline He has 1.2 g proteinuria, which 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 HERVE likely due to dehydration, sepsis, DKA, may have progressed to ATN Renal function is worse today He is non oliguric Renal US negative for obstruction Continue IVF He has metabolic acidosis but avoid bicarbonate given hypernatremia Avoid nephrotoxins, renally dose medications when appropriate If his renal function continues to decline, he may require dialysis. Although palliative care consultation may be appropriate given living situation (2) Dehydration with hypernatremia ICD Codes: E87.0 - Hyperosmolality and hypernatremia Status: Acute Plan: IVF changed to D5W PO water intake encouraged, I have asked the nurse to attempt to hydrate Follow serum Na levels (3) DKA (diabetic ketoacidoses) ICD Codes: E13.10 - Other specified diabetes mellitus with ketoacidosis without coma Status: Acute Plan: Improving, off Insulin gtt follow glucose. (4) Sepsis ICD Codes: A41.9 - Sepsis, unspecified organism Status: Acute Plan: Elevated lactic acid Given vancomycin, now on zosyn. (5) Elevated troponin ICD Codes: R74.8 - Abnormal levels of other serum enzymes Plan: cardiology has evaluated suspect demand ischemia as etiology of elevated troponin levels 2D echo has been ordered (Gely Dill) Plan patient was seen and examined. Encephalopathic. Renal function is worse. Urine output has decreased significantly. Hypernatremia is noted. (Mc Quintanilla MD) Problem Qualifiers (1) Acute renal failure: Qualified Codes: N17.9 - Acute kidney failure, unspecified (2) DKA (diabetic ketoacidoses): (3) Sepsis: Qualified Codes: A41.9 - Sepsis, unspecified organism Gely Dlil Feb 20, 2017 10:55 Mc Quintanilla MD Feb 20, 2017 16:28
--- NOTE | 2017-02-20 10:55 | HHI.NPPN ---
Subjective General Problems: Mebatolic Acidosis Renal Failure: Chronic, Acute Interval History He remains confused, mumbles, is restrained. Off insulin gtt. Renal function is worse. He is making urine. Hypernatremia is worse compared to admission. (Gely Dill) Objective Data Data Vital Signs Date Time Temp Pulse Resp B/P (MAP) Pulse Ox O2 Delivery O2 Flow Rate FiO2 02/20/17 08:24 98 Nasal Cannula 2.00 02/20/17 06:00 73 02/20/17 04:00 69 02/20/17 04:00 69 27 85/60 (68) 02/20/17 02:00 74 02/20/17 00:00 103 02/20/17 00:00 96.6 103 30 123/62 (82) 96 02/19/17 22:00 92 02/19/17 20:19 99 Nasal Cannula 2.00 02/19/17 20:00 91 02/19/17 20:00 97.7 91 23 139/89 (106) 100 02/19/17 18:01 Nasal Cannula 2.00 02/19/17 17:44 02/19/17 17:20 97 26 125/92 (103) 97 Nasal Cannula 2.00 02/19/17 16:11 90 32 153/88 (109) 100 Nasal Cannula 2.00 02/19/17 15:24 92 30 144/80 (101) 99 Nasal Cannula 2.00 02/19/17 14:34 97 18 138/77 (97) 99 Nasal Cannula 2.00 02/19/17 13:00 96 18 145/76 (99) 97 Nasal Cannula 2.00 02/19/17 12:19 30 99 Nasal Cannula 2.00 02/19/17 11:44 99 30 147/80 (102) 100 02/19/17 11:41 100 30 100 Room Air 02/19/17 11:31 100 36 136/80 (98) 96 (Gely Dill) -: 02/20/17 0319 02/20/17 0755 Microbiology 02/19/17 Aerobic Blood Culture, Received Pending 02/19/17 Anaerobic Blood Culture, Received Pending 02/19/17 Aerobic Blood Culture, Received Pending 02/19/17 Anaerobic Blood Culture, Received Pending 10/12/17 Urine Culture, Received Pending Imaging Last [address] 02/19/17 1205 Signed Impressions: Service Date/Time: , February 19, 2017 13:02 - CONCLUSION: 1. Cortical atrophy. 2. No acute abnormality identified. The examination is stable compared to prior dated 04/17/12. Sharath Wang MD Chest X-Ray 02/19/17 1205 Signed Impressions: Service Date/Time: , February 19, 2017 12:16 - CONCLUSION: No acute disease. Dontrell Mcqueen Jr., MD Renal Ultrasound 02/19/17 0000 Signed Impressions: Service Date/Time: , February 19, 2017 17:19 - CONCLUSION: No evidence of hydronephrosis. Indwelling Scott catheter with collapsed bladder in thickened bladder wall. Cal Tomlinson MD Tubes & Lines: Scott Drip Comment D5W (Gely Dill B. REFINERY OPERATOR) Physical Exam General Appearance: No Acute Distress, Comfortable, Malnourished Appearance Remarks Disheveled, mumbles to questions (Gely Dill B. REFINERY OPERATOR) Eyes Eye Exam: Pupils Equal (AniyahGely B. REFINERY OPERATOR) Throat Throat Exam: Oral Mucosa Porum & Moist (AniyahGely B. REFINERY OPERATOR) Pulmonary Resp Exam: Clear Bilaterally, Breath Sounds Equal (AniyahGely B. REFINERY OPERATOR) Cardiology CV Exam: Regular, Normal Sinus Rhythm (AniyahGely B. REFINERY OPERATOR) Gastrointestinal/Abdomen GI Exam: Soft, Non-Tender, Bowel Sounds Present (AniyahGely B. REFINERY OPERATOR) Musculoskeletal MS Exam: Joints Intact, Normal Tone, Unable to Ambulate (AniyahGely B. REFINERY OPERATOR) Integumentary Skin Exam: Clear, Warm, Dry, Intact (AniyahGely B. REFINERY OPERATOR) Extremeties Extremities Exam: No Edema, Pedal Pulses Palpable (AniyahGely B. REFINERY OPERATOR) Neurologic Neuro Exam: Awake, Obtunded Neuro Remarks incomprehensible speech (Gely Dill B. REFINERY OPERATOR) Assessment/Plan Assessment Summary: HERVE/Acute Renal Failure, Diabetes Mellitus Electrolyte Assessment: Hypernatremia, Metabolic Acidosis Problem List: (1) Acute renal failure ICD Codes: N17.9 - Acute kidney failure, unspecified Status: Acute Plan: This patient has underlying renal impairment, creatinine 1.8-2 at baseline He has 1.2 g proteinuria, which 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 HERVE likely due to dehydration, sepsis, DKA, may have progressed to ATN Renal function is worse today He is non oliguric Renal US negative for obstruction Continue IVF He has metabolic acidosis but avoid bicarbonate given hypernatremia Avoid nephrotoxins, renally dose medications when appropriate If his renal function continues to decline, he may require dialysis. Although palliative care consultation may be appropriate given living situation (2) Dehydration with hypernatremia ICD Codes: E87.0 - Hyperosmolality and hypernatremia Status: Acute Plan: IVF changed to D5W PO water intake encouraged, I have asked the nurse to attempt to hydrate Follow serum Na levels (3) DKA (diabetic ketoacidoses) ICD Codes: E13.10 - Other specified diabetes mellitus with ketoacidosis without coma Status: Acute Plan: Improving, off Insulin gtt follow glucose. (4) Sepsis ICD Codes: A41.9 - Sepsis, unspecified organism Status: Acute Plan: Elevated lactic acid Given vancomycin, now on zosyn. (5) Elevated troponin ICD Codes: R74.8 - Abnormal levels of other serum enzymes Plan: cardiology has evaluated suspect demand ischemia as etiology of elevated troponin levels 2D echo has been ordered (Gely Dill) Plan patient was seen and examined. Encephalopathic. Renal function is worse. Urine output has decreased significantly. Hypernatremia is noted. (Mc Quintanilla MD) Problem Qualifiers (1) Acute renal failure: Qualified Codes: N17.9 - Acute kidney failure, unspecified (2) DKA (diabetic ketoacidoses): (3) Sepsis: Qualified Codes: A41.9 - Sepsis, unspecified organism Gely Dill Feb 20, 2017 10:55 Mc Quintanilla MD Feb 20, 2017 16:28
[2017-02-20] MEDS: INSULIN ASPART 1,000 UNITS/10 ML VIAL SQ SCH ×4 (12:00→17:00)
[2017-02-20] MEDS: INSULIN ASPART SUPPLEMENTAL SCALE SQ SCH ×6 (12:00→21:31)
--- NOTE | 2017-02-20 12:02 | RADRPT ---
EXAM DATE/TIME: 02/20/2017 10:51 [facility] COMPARISON: No previous studies available for comparison. INDICATIONS : Increased lab values. MEDICAL HISTORY : Hypercholesterolemia. Hypertension. Arthritis. Diabetes. SURGICAL HISTORY : Appendectomy. Bilateral eye laser surgery. Bilateral cataracts. ENCOUNTER: Initial ACUITY: 1 day PAIN SCORE: Nonresponsive. LOCATION: Bilateral upper quadrant MEASUREMENTS: LIVER: 15.5 cm length COMMON DUCT: 5 mm RIGHT KIDNEY: 9.6 x 4.3 x 4.8 cm SPLEEN: 8.7 cm length FINDINGS: LIVER: Normal echotexture without focal lesion or ductal dilatation. COMMON DUCT: No intraluminal mass or stone visualized. GALLBLADDER: Multiple gallstones are noted with thickened gallbladder wall. Minimal fluid is present around the g allbladder. PANCREAS: Poorly visualized RIGHT KIDNEY: No hydronephrosis, stone or mass. SPLEEN: No focal lesion. CONCLUSION: Gallstones and gallbladder wall thickening. There is no intrahepatic biliary duct dilatation. Rylan Wang MD FACR on February 20, 2017 at 11:59 Board Certified Radiologist. This report was verified electronically.
[2017-02-20 12:26] LABS: BICARBONATE 18.4 MEQ/L (21.0-32.0); CALCIUM 8.3 MG/DL (8.5-10.1); CREATININE 4.82 MG/DL (0.60-1.30)
[2017-02-20 12:27] LABS: PHOSPHORUS 3.3 MG/DL (2.5-4.9)
--- NOTE | 2017-02-20 15:24 | ECHRPT ---
Indication: nstemi CONCLUSIONS The left ventricular systolic function is severely reduced with an estimated ejection fraction in th e range of 20-25%. Normal left ventricular size. Wall thickness is normal. Mild concentric left ventricular hypertrophy. There is global left ventricular dysfunction. Mild mitral valve regurgitation. Moderate thickening of the aortic valve leaflets. Trace aortic valve regurgitation. No aortic valve stenosis. There is moderate tricuspid regurgitation. The estimated pulmonary arterial pressure is 54.6 mmHg. A small left sided pleural effusion is noted. BP: 123 / 62 HR: 103 Rhythm: Sinus MEASUREMENTS (Male / Female) Normal Values Technical Quality:Good 2D ECHO LV Diastolic Diameter PLAX 5.1 cm 4.2 - 5.9 / 3.9 - 5.3 cm LV Systolic Diameter PLAX 4.5 cm IVS Diastolic Thickness 1.4 cm 0.6 - 1.0 / 0.6 - 0.9 cm LVPW Diastolic Thickness 1.4 cm 0.6 - 1.0 / 0.6 - 0.9 cm LV Relative Wall Thickness 0.6 RV Internal Dim ED PLAX 2.9 cm LVOT Diameter 2.4 cm LV Ejection Fraction MOD 4C 27.1 % LV Cardiac Index MOD 4C 2034.0 cm/minm LV Ejection Fraction 4C AL 28.4 % LV Cardiac Index 4C AL 2245.4 cm/minm M-MODE Aortic Root Diameter MM 3.3 cm AV Cusp Separation MM 1.4 cm DOPPLER AV Peak Velocity 163.0 cm/s AV Peak Gradient 10.6 mmHg LVOT Peak Velocity 46.7 cm/s LVOT Peak Gradient 0.9 mmHg AV Area Cont Eq pk 1.3 cm MV Area PHT 5.5 cm Mitral E Point Velocity 72.1 cm/s Mitral A Point Velocity 37.5 cm/s Mitral E to A Ratio 1.9 LV E' Lateral Velocity 4.3 cm/s Mitral E to LV E' Lateral Ratio 16.6 LV E' Septal Velocity 3.4 cm/s Mitral E to LV E' Septal Ratio 21.2 TR Peak Velocity 334.0 cm/s TR Peak Gradient 44.6 mmHg Right Atrial Pressure 10.0 mmHg Pulmonary Artery Systolic Pressu 54.6 mmHg Right Ventricular Systolic Press 54.6 mmHg PV Peak Velocity 126.0 cm/s PV Peak Gradient 6.4 mmHg FINDINGS LEFT VENTRICLE The left ventricular systolic function is severely reduced with an estimated ejection fraction in th e range of 20-25%. Normal left ventricular size. Wall thickness is normal. Mild concentric left ventricular hypertrophy. There is global left ventricular dysfunction. RIGHT VENTRICLE Normal right ventricular size and systolic function. LEFT ATRIUM The left atrial size is normal. RIGHT ATRIUM The right atrial size is normal. ATRIAL SEPTUM Normal atrial septal thickness without atrial level shunting by limited color doppler interrogation. AORTA The aortic root and proximal ascending aorta are normal in size on limited imaging. MITRAL VALVE Mild mitral valve regurgitation. AORTIC VALVE Moderate thickening of the aortic valve leaflets. Trace aortic valve regurgitation. No aortic valve stenosis. TRICUSPID VALVE There is moderate tricuspid regurgitation. The estimated pulmonary arterial pressure is 54.6 mmHg. PULMONARY VALVE No pulmonary valve regurgitation or stenosis. VESSELS The inferior vena cava is normal in size. PERICARDIUM A small left sided pleural effusion is noted. Pradeep Navarro MD, FACC (Electronically Signed) Final Date:20 February 2017 15:24
[2017-02-20] MEDS: MELATONIN 5 MG TAB PO PRN ×2 (21:45)
[2017-02-21] VITALS (14 sets, daily range): BP systolic 94–111; BP diastolic 59–64; PULSE 67–84; RESP 18–33; TEMP 97.7–98.7; O2SAT 94–100
[2017-02-21] MEDS: PIPERACIL-TAZO 2.25 GM PREMIX 50 ML IV SCH ×8 (03:20→21:42)
[2017-02-21] MEDS: RESP: ALBUTEROL 2.5 MG/IPRATROPIUM 0.5 MG NEB (SCH) INH ×8 (03:32→20:15)
[2017-02-21] MEDS: CHLORHEXIDINE GLUCONATE 2 % 1 PACK (2 CLOTHS) TOP SCH ×2 (04:00)
[2017-02-21] MEDS: HEPARIN SODIUM - SQ 10,000 UNITS/ML VIAL SQ SCH ×4 (05:00→16:36)
[2017-02-21 05:34] LABS: AUTOMATED NEUTROPHIL # 9.5 TH/MM3 (1.8-7.7); BASOPHIL % 0.2 % (0.0-2.0); HEMATOCRIT 32.8 % (39.0-51.0); HEMOGLOBIN 10.4 GM/DL (13.0-17.0); LYMPH % 7.9 % (9.0-44.0); LYMPHOCYTE # 0.9 TH/MM3 (1.0-4.8); MEAN CELL VOLUME 92.7 FL (80.0-100.0); MEAN CORPUSCULAR HEMOGLOBIN 29.5 PG (27.0-34.0); MEAN CORPUSCULAR HGB CONC 31.8 % (32.0-36.0); MEAN PLATELET VOLUME 11.1 FL (7.0-11.0); MONO % 7.4 % (0.0-8.0); MONOCYTE # 0.8 TH/MM3 (0-0.9); NEUT % 84.5 % (16.0-70.0); PLATELET COUNT 58 TH/MM3 (150-450); RED BLOOD COUNT 3.54 MIL/MM3 (4.50-5.90); RED CELL DISTRIBUTION WIDTH 16.9 % (11.6-17.2); WHITE BLOOD COUNT 11.3 TH/MM3 (4.0-11.0)
[2017-02-21] MEDS: METOPROLOL TARTRATE 25 MG TAB PO SCH ×6 (06:00→21:42)
[2017-02-21 06:03] LABS: ALBUMIN 2.3 GM/DL (3.4-5.0); ALKALINE PHOSPHATASE 50 U/L (45-117); ALT (GPT) 356 U/L (12-78); AST (GOT) 167 U/L (15-37); BICARBONATE 16.1 MEQ/L (21.0-32.0); BLOOD UREA NITROGEN 95 MG/DL (7-18); CALCIUM 7.9 MG/DL (8.5-10.1); CHLORIDE 118 MEQ/L (98-107); CREATININE 5.63 MG/DL (0.60-1.30); GLOMERULAR FILTRATION RATE 12 ML/MIN (>89); GLUCOSE,RANDOM 222 MG/DL (74-106); MAGNESIUM 2.2 MG/DL (1.5-2.5); SODIUM (NA) 151 MEQ/L (136-145); TOTAL BILIRUBIN ADULT 1.1 MG/DL (0.2-1.0); TOTAL PROTEIN 6.3 GM/DL (6.4-8.2)
--- NOTE | 2017-02-21 06:30 | RADRPT ---
EXAM DATE/TIME: 02/21/2017 04:36 [facility] COMPARISON: CHEST SINGLE AP, February 19, 2017, 12:16. INDICATIONS : Shortness of breath, possible pulmonary disease. MEDICAL HISTORY : Cardiovascular disease. Hypertension Diabetes mellitus type II. SURGICAL HISTORY : None. ENCOUNTER: Subsequent ACUITY: 2 days PAIN SCORE: Non-responsive. LOCATION: Bilateral chest FINDINGS: The left subclavian line is well placed. The heart size is enlarged. There is increased density at th e bases bilaterally being worse on the right. There is silhouetting of the hemidiaphragms being worse on the right. CONCLUSION: Bibasilar areas of suspected consolidation/atelectasis and effusion being worse on the right. The fin dings have worsened since the prior exam. Flakito Chan MD on February 21, 2017 at 6:28 Board Certified Radiologist. This report was verified electronically.
[2017-02-21] MEDS: ASPIRIN 81 MG CHEW TAB CHEW SCH ×2 (07:46)
[2017-02-21] MEDS: PANTOPRAZOLE SODIUM 40 MG VIAL IV PUSH SCH ×2 (07:46)
[2017-02-21] MEDS: DOCUSATE SODIUM 50 MG/SENNA 8.6 MG TAB PO SCH ×4 (07:47→21:42)
[2017-02-21] MEDS: SODIUM CHLORIDE 0.9% FLUSH 10 ML FLUSH IV FLUSH SCH ×4 (07:49→21:42)
[2017-02-21] MEDS: INSULIN DETEMIR 100 UNITS/ML VIAL SQ SCH ×4 (07:50→21:30)
[2017-02-21] MEDS: INSULIN ASPART SUPPLEMENTAL SCALE SQ SCH ×8 (07:50→21:00)
[2017-02-21] MEDS: INSULIN ASPART 1,000 UNITS/10 ML VIAL SQ SCH ×6 (07:50→16:36)
--- NOTE | 2017-02-21 07:51 | HHI.PR ---
Subjective Remarks f/u; renal failure in no acute distress but with some wheezing. afebrile. awake but confused. at times agitated and on four point restraints. oliguric. blood sugar trend noted. d/w the RN. Objective Vitals Vital Signs Date Time Temp Pulse Resp B/P (MAP) Pulse Ox O2 Delivery O2 Flow Rate FiO2 02/21/17 06:00 70 02/21/17 04:00 98.2 69 33 94/59 (71) 100 02/21/17 04:00 69 02/21/17 02:00 67 02/21/17 00:00 98.7 70 18 111/64 (80) 100 02/21/17 00:00 70 02/20/17 22:00 82 02/20/17 21:02 99 Nasal Cannula 2.00 02/20/17 20:00 83 02/20/17 20:00 98.7 83 32 115/71 (86) 100 02/20/17 17:00 82 24 114/61 (78) 100 02/20/17 16:00 97.9 85 23 121/62 (81) 100 02/20/17 15:00 79 29 110/65 (80) 100 02/20/17 14:00 77 27 113/67 (82) 98 02/20/17 13:00 77 21 108/61 (77) 93 02/20/17 12:00 97.9 77 12 107/61 (76) 98 02/20/17 11:00 75 19 105/63 (77) 99 02/20/17 10:00 74 28 98/61 (73) 100 02/20/17 09:00 71 27 98/67 (77) 100 02/20/17 08:30 68 23 97/54 (68) 100 02/20/17 08:24 98 Nasal Cannula 2.00 02/20/17 08:19 67 30 95/54 (68) 02/20/17 08:01 97.7 69 29 89/61 (70) I/O 02/20/17 02/20/17 02/20/17 02/21/17 02/21/17 02/21/17 07:00 15:00 23:00 07:00 15:00 23:00 Intake Total 765 ml 0 ml Output Total 400 ml 75 ml 25 ml Balance 365 ml -75 ml -25 ml Intake Oral 0 ml IV Total 765 ml Output Urine Total 400 ml 75 ml 25 ml # Bowel Movements 0 Result Diagram: 02/21/17 0455 02/21/17 0455 Imaging Last Impressions Chest X-Ray 02/21/17 0600 Signed Impressions: Service Date/Time: Tuesday, February 21, 2017 04:36 - CONCLUSION: Bibasilar areas of suspected consolidation/atelectasis and effusion being worse on the right. The findings have worsened since the prior exam. Flakito Chan MD Liver Ultrasound 02/20/17 0000 Signed Impressions: Service Date/Time: Monday, February 20, 2017 10:51 - CONCLUSION: Gallstones and gallbladder wall thickening. There is no intrahepatic biliary duct dilatation. Rylan Wang MD FACR Head CT 02/19/17 1205 Signed Impressions: Service Date/Time: February 13:02 - CONCLUSION: 1. Cortical atrophy. 2. No acute abnormality identified. The examination is stable compared to prior dated 04/17/12. Sharath Wang MD Renal Ultrasound 02/19/17 0000 Signed Impressions: Service Date/Time: February 17:19 - CONCLUSION: No evidence of hydronephrosis. Indwelling Scott catheter with collapsed bladder in thickened bladder wall. Cal Tomlinson MD Objective Remarks GENERAL: with some wheezing. CARDIOVASCULAR: Regular rate and regular rhythm without murmurs, gallops, or rubs. RESPIRATORY: bilateral wheezing. GASTROINTESTINAL: Abdomen soft, non-tender, nondistended. Normal, active bowel sounds MUSCULOSKELETAL: Extremities without clubbing, cyanosis, or edema. NEURO: Awake but confused. Medications and IVs Current Medications IV Flush (NS Flush) 2 ml UNSCH PRN IV FLUSH FLUSH AFTER USING IV ACCESS; Start 02/19/17 at 12:15; Stop 02/19/17 at 16:15; Status DC Sodium Chloride 1,000 ml @ 1,000 mls/hr Q1H IV Last administered on 12:17; Start 02/19/17 at 12:05; Stop 02/19/17 at 13:04; Status DC Sodium Chloride 1,000 ml @ 999 mls/hr BOLUS ONCE IV Last administered on 12:18; Start 02/19/17 at 12:15; Stop 02/19/17 at 13:15; Status DC Insulin Human Regular (NovoLIN R INJ) 10 units ONCE ONCE IV PUSH Last administered on 02/19/17 12:23; Start 02/19/17 at 12:15; Stop 02/19/17 at 12 :16; Status DC Sodium Chloride 1,000 ml @ 999 mls/hr BOLUS ONCE IV Last administered on 13:25; Start 02/19/17 at 13:00; Stop 02/19/17 at 14:00; Status DC Sodium Chloride 1,000 ml @ 250 mls/hr Q4H IV Last administered on 02/19/17 14:36; Start 02/19/17 at 13:35; Stop 02/19/17 at 16:40; Status DC Dextrose/Sodium Chloride 1,000 ml @ 200 mls/hr Q5H IV ; Start 02/19/17 at 13: 35; Stop 02/20/17 at 00:07; Status DC Insulin Human Regular 100 units/ Sodium Chloride 100 ml @ 6.5 mls/hr TITRATE IV Last administered on 02/20/17 00:30; Start 02/19/17 at 15:00; Stop 02/20 at 09:24; Status DC Sodium Bicarbonate (Sodium Bicarbonate 8.4% Inj) 100 meq UNSCH PRN IV PUSH SEE LABEL COMMENTS; Start 02/19/17 at 13:45 Sodium Bicarbonate (Sodium Bicarbonate 8.4% Inj) 50 meq UNSCH PRN IV PUSH SEE LABEL COMMENTS; Start 02/19/17 at 13:45 Sodium Phosphate 15 mmol/Sodium Chloride 105 ml @ 25 mls/hr UNSCH PRN IV SEE LABEL COMMENTS; Start 02/19/17 at 13:45 Miscellaneous Information 1 Q361D XX ; Start 02/19/17 at 13:45; Stop 02/19/17 at 16:14; Status DC Chlorhexidine Gluconate (Chlorhexidine 2% Cloth) 3 pack Taper DAILY@04 TOP ; Start 02/20/17 at 04:00; Stop 02/20/17 at 04:00; Status DC Chlorhexidine Gluconate (Chlorhexidine 2% Cloth) 3 pack UNSCH PRN TOP HYGIENIC CARE; Start 02/19/17 at 13:45; Stop 02/19/17 at 16:14; Status DC Piperacillin Sod/ Tazobactam Sod 100 ml @ 200 mls/hr ONCE ONCE IV Last administered on 02/19/17 14:36; Start 02/19/17 at 14:30; Stop 02/19/17 at 14 :59; Status DC Vancomycin HCl 1000 mg/Sodium Chloride 250 ml @ 250 mls/hr ONCE ONCE IV Last administered on 02/19/17 14:36; Start 02/19/17 at 14:30; Stop 02/19/17 at 15 :29; Status DC Sodium Chloride (NS Flush) 2 ml UNSCH PRN IV FLUSH FLUSH AFTER USING IV ACCESS ; Start 02/19/17 at 14:15 Sodium Chloride (NS Flush) 2 ml BID IV FLUSH Last administered on 02/20/17 21 :28; Start 02/19/17 at 21:00 Pantoprazole Sodium (Protonix Inj) 40 mg DAILY IV PUSH Last administered on 09:04; Start 02/20/17 at 09:00 Albuterol/ Ipratropium (Duoneb Neb) 1 ampule Q6HR NEB INH Last administered on 02/21/17 03:32; Start 02/19/17 at 16:00 Albuterol/ Ipratropium (Duoneb Neb) 1 ampule Q4HR NEB PRN INH WHEEZING; Start 02/19/17 at 14:15 Heparin Sodium (Porcine) (Heparin Inj) 5,000 units Q12H SQ Last administered on 02/21/17 05:00; Start 02/19/17 at 17:00 Miscellaneous Information 1 Q361D XX ; Start 02/19/17 at 14:15 Chlorhexidine Gluconate (Chlorhexidine 2% Cloth) 3 pack Taper DAILY@04 TOP Last administered on 02/21/17 04:00; Start 02/20/17 at 04:00; Stop 02/16/18 at 03:59 Chlorhexidine Gluconate (Chlorhexidine 2% Cloth) 3 pack UNSCH PRN TOP HYGIENIC CARE; Start 02/19/17 at 14:15 Senna/Docusate Sodium (Princess-Colace) 1 tab BID PO Last administered on 21:27; Start 02/19/17 at 21:00 Magnesium Hydroxide (Milk Of Magnesia Liq) 30 ml Q12H PRN PO MILD - MODERATE CONSTIPATION; Start 02/19/17 at 14:15 Sennosides (Senokot) 17.2 mg Q12H PRN PO MODERATE - SEVERE CONSTIPATION; Start 02/19/17 at 14:15 Bisacodyl (Dulcolax Supp) 10 mg DAILY PRN RECTAL SEVERE CONSITIPATION; Start 02/19/17 at 14:15 Lactulose (Lactulose Liq) 30 ml DAILY PRN PO SEVERE CONSITIPATION; Start 02/19 at 14:15 Aspirin (Aspirin Chew) 81 mg DAILY CHEW Last administered on 02/20/17 09:08; Start 02/19/17 at 15:15 Piperacillin Sod/ Tazobactam Sod 50 ml @ 100 mls/hr Q6H IV Last administered on 02/21/17 03:20; Start 02/19/17 at 21:00 Sodium Chloride 1,000 ml @ 999 mls/hr BOLUS ONCE IV Last administered on 16:53; Start 02/19/17 at 16:15; Stop 02/19/17 at 17:15; Status DC Metoprolol Tartrate (Lopressor) 25 mg Q8HR PO Last administered on 02/21/17 06:00; Start 02/19/17 at 16:30 Sodium Chloride 1,000 ml @ 100 mls/hr Q10H IV Last administered on 02/19/17 17:22; Start 02/19/17 at 16:45; Stop 02/20/17 at 00:07; Status DC Sodium Bicarbonate (Sodium Bicarbonate 8.4% Inj) 50 meq ONCE ONCE IV PUSH Last administered on 02/19/17 16:50; Start 02/19/17 at 17:00; Stop 02/19/17 at 17:01; Status DC Sodium Chloride 1,000 ml @ 999 mls/hr BOLUS ONCE IV ; Start 02/19/17 at 17:00 ; Stop 02/19/17 at 18:00; Status DC Melatonin (Melatonin) 5 mg HS PRN PO SLEEP Last administered on 02/20/17 21: 45; Start 02/19/17 at 22:15 Potassium Chloride 100 ml @ 25 mls/hr BOLUS ONCE IV Last administered on 00:18; Start 02/20/17 at 00:15; Stop 02/20/17 at 04:14; Status DC Dextrose 1,000 ml @ 120 mls/hr Q8H20M IV Last administered on 02/20/17 08:59 ; Start 02/20/17 at 00:15; Stop 02/20/17 at 09:24; Status DC Miscellaneous Information 1 ONCE ONCE .XX ; Start 02/20/17 at 09:30; Stop at 10:06; Status DC Miscellaneous Information 1 ONCE ONCE .XX ; Start 02/20/17 at 09:30; Stop at 10:01; Status DC Insulin Detemir (Levemir Inj) 5 units Q12H SQ Last administered on 02/20/17 21:28; Start 02/20/17 at 09:30 Insulin Aspart (NovoLOG INJ) 3 units TIDAC SQ ; Start 02/20/17 at 12:00 Insulin Aspart (NovoLOG SUPPLEMENTAL SCALE) 1 ACHS SLIDING SCALE SQ Last administered on 02/20/17 21:31; Start 02/20/17 at 12:00 Dextrose (D50w (Vial) Inj) 50 ml UNSCH PRN IV PUSH HYPOGLYCEMIA-SEE COMMENTS; Start 02/20/17 at 09:30 Glucagon (Glucagon Inj) 1 mg UNSCH PRN OTHER HYPOGLYCEMIA-SEE COMMENTS; Start 02/20/17 at 09:30 Sodium Chloride 1,000 ml @ 60 mls/hr [id number] IV Last administered on 14:39; Start 02/20/17 at 09:30 Haloperidol Lactate (Haldol Inj) 2 mg Q4H PRN IV agitation; Start 02/20/17 at 09:45 A/P Problem List: (1) Acute metabolic encephalopathy ICD Code: G93.41 - Metabolic encephalopathy (2) Altered mental status ICD Code: R41.82 - Altered mental status, unspecified Status: Acute (3) DKA (diabetic ketoacidoses) ICD Code: E13.10 - Other specified diabetes mellitus with ketoacidosis without coma Status: Acute (4) Non-STEMI (non-ST elevated myocardial infarction) ICD Code: I21.4 - Non-ST elevation (NSTEMI) myocardial infarction Status: Acute (5) Dehydration with hypernatremia ICD Code: E87.0 - Hyperosmolality and hypernatremia Status: Acute (6) Sepsis ICD Code: A41.9 - Sepsis, unspecified organism Status: Acute (7) UTI (urinary tract infection) ICD Code: N39.0 - Urinary tract infection, site not specified Status: Acute (8) Acute renal failure ICD Code: N17.9 - Acute kidney failure, unspecified Status: Acute (9) Hyperglycemia ICD Code: R73.9 - Hyperglycemia, unspecified Status: Acute (10) Lactic acidemia ICD Code: E87.2 - Acidosis (11) Transaminitis ICD Code: R74.0 - Nonspecific elevation of levels of transaminase and lactic acid dehydrogenase [LDH] (12) Respiratory insufficiency ICD Code: R06.89 - Other abnormalities of breathing Assessment and Plan A/P Acute metabolic encephalopathy - Minimize sedation. Treat agitation with when necessary Haldol - Encephalopathy most likely secondary to DKA/hyperglycemia severe dehydration with uremia and probable sepsis Respiratory insufficiency - Tachypnea most likely secondary to metabolic acidosis, improved - DuoNeb every 6 hours when necessary, bicarbonate IV as needed Lactic acidemia elevated troponin Hypertension cardiomyopathy -echo with EF 25% - Aspirin 81 mg daily. - Metoprolol 25 mg every 8 hours - Avoid statins due to transaminitis -cardiology following. Transaminitis - Monitor liver enzymes most likely secondary to hypotension/severe dehydration -will monitor Acute on chronic kidney disease Severe dehydration Hyperkalemia - Baseline creatinine 1.8 to 2. Acute worsening secondary to severe dehydration and DKA - Continue fluid resuscitation - Monitor renal function closely. continue Scott catheter. - Nephrology consulted Dr. Quintanilla - considering dialysis. Probable sepsis UTI - Received IV vancomycin and Zosyn in the ED. Continue Zosyn - F/U on blood and urine culture negative to date Anemia Mild thrombocytopenia -Monitor CBC, CMP -B12 normal, iron studies indicate anemia of chronic disease DKA-resolved - MT'ed DKA protocol. - Replace electrolytes cautiously due to acute kidney failure -started on levemir and slidingscale coverage. PROPH: - Bilateral lower extremity SCDs. Heparin 5000 units sq q12. Monitor platelet count closely - IV Protonix 40 q24 hours will consider palliative care evaluation. Problem Qualifiers (1) Altered mental status: Qualified Codes: R41.82 - Altered mental status, unspecified (2) DKA (diabetic ketoacidoses): (3) Sepsis: Qualified Codes: A41.9 - Sepsis, unspecified organism (4) UTI (urinary tract infection): (5) Acute renal failure: Qualified Codes: N17.9 - Acute kidney failure, unspecified Orion Braden MD Feb 21, 2017 07:51
[2017-02-21 10:30] LABS: BANDS 17 % (0-6); LYMPHOCYTES 8 % (9-44); MONOCYTES 6 % (0-8); NEUTROPHIL # MANUAL DIFF 9.7 TH/MM3 (1.8-7.7); OVALOCYTES 1+ (NORMAL); POLYS (SEG NEUTROPHILS) 69 % (16-70)
[2017-02-21 10:31] LABS: ACANTHOCYTES 1+ (NORMAL)
[2017-02-21] MEDS ORDERED: SODIUM CHLOR 0.9% 1000 ML INJ 1,000 ML OTHER PRN ×4 (10:55)
[2017-02-21] MEDS ORDERED: SODIUM CHLOR 0.9% 1000 ML INJ 1,000 ML IV PRN ×2 (10:55)
--- NOTE | 2017-02-21 10:57 | HHI.NPPN ---
Subjective General Problems: Mebatolic Acidosis Renal Failure: Chronic, Acute Additional Remarks Patient seen in bed, confused, ongoing minimal UOP with valenzuela in place. Objective Data Data Vital Signs Date Time Temp Pulse Resp B/P (MAP) Pulse Ox O2 Delivery O2 Flow Rate FiO2 02/21/17 10:00 71 02/21/17 08:22 100 Nasal Cannula 2.00 02/21/17 08:00 98.6 69 29 111/64 (80) 94 02/21/17 08:00 69 02/21/17 06:00 70 02/21/17 04:00 98.2 69 33 94/59 (71) 100 02/21/17 04:00 69 02/21/17 02:00 67 02/21/17 00:00 98.7 70 18 111/64 (80) 100 02/21/17 00:00 70 02/20/17 22:00 82 02/20/17 21:02 99 Nasal Cannula 2.00 02/20/17 20:00 83 02/20/17 20:00 98.7 83 32 115/71 (86) 100 02/20/17 17:00 82 24 114/61 (78) 100 02/20/17 16:00 97.9 85 23 121/62 (81) 100 02/20/17 15:00 79 29 110/65 (80) 100 02/20/17 14:00 77 27 113/67 (82) 98 02/20/17 13:00 77 21 108/61 (77) 93 02/20/17 12:00 97.9 77 12 107/61 (76) 98 02/20/17 11:00 75 19 105/63 (77) 99 -: 02/21/17 0455 02/21/17 0455 Tubes & Lines: Valenzuela Drip Comment D5W Physical Exam General Appearance: No Acute Distress, Comfortable, Malnourished Eyes Eye Exam: Pupils Equal Throat Throat Exam: Oral Mucosa [place] & Moist Pulmonary Resp Exam: Clear Bilaterally, Breath Sounds Equal Cardiology CV Exam: Regular, Normal Sinus Rhythm Gastrointestinal/Abdomen GI Exam: Soft, Non-Tender, Bowel Sounds Present Musculoskeletal MS Exam: Joints Intact, Normal Tone, Unable to Ambulate Integumentary Skin Exam: Clear, Warm, Dry, Intact Extremeties Extremities Exam: No Edema, Pedal Pulses Palpable Neurologic Neuro Exam: Awake, Obtunded Assessment/Plan Assessment Summary: HERVE/Acute Renal Failure, Diabetes Mellitus Electrolyte Assessment: Hypernatremia, Metabolic Acidosis Problem List: (1) Acute renal failure ICD Codes: N17.9 - Acute kidney failure, unspecified Status: Acute Plan: This patient has underlying renal impairment, creatinine 1.8-2 at baseline He has 1.2 g proteinuria, which 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 HERVE likely due to dehydration, sepsis, DKA, and now has apparently progressed to ATN Renal US negative for obstruction Given minimal UOP, acidosis, encephalopathy/uremia? - will start HD today. Discussed with Dr. Fraga, who will assist with catheter placement. Will hold IVFS, however may continue PO intake. Palliative care consultation may be appropriate given living situation (2) Dehydration with hypernatremia ICD Codes: E87.0 - Hyperosmolality and hypernatremia Status: Acute Plan: Plan for HD today. Continue PO water intake as tolerated. (3) DKA (diabetic ketoacidoses) ICD Codes: E13.10 - Other specified diabetes mellitus with ketoacidosis without coma Status: Acute Plan: Improving, off Insulin gtt follow glucose. (4) Sepsis ICD Codes: A41.9 - Sepsis, unspecified organism Status: Acute Plan: Elevated lactic acid Given vancomycin, now on zosyn. 1/2 blood cultures with GPC. (5) Elevated troponin ICD Codes: R74.8 - Abnormal levels of other serum enzymes Plan: cardiology has evaluated suspect demand ischemia as etiology of elevated troponin levels 2D echo has been ordered Problem Qualifiers (1) Acute renal failure: Qualified Codes: N17.9 - Acute kidney failure, unspecified (2) DKA (diabetic ketoacidoses): (3) Sepsis: Qualified Codes: A41.9 - Sepsis, unspecified organism Sharath Avila MD Feb 21, 2017 10:57
[2017-02-21] MEDS ORDERED: HEPARIN SODIUM - IV 10,000 UNITS/10 ML VIAL IV FLUSH PRN ×2 (11:00)
[2017-02-21] MEDS ORDERED: SODIUM CHLORIDE 0.9% FLUSH 10 ML FLUSH IV FLUSH PRN ×2 (11:00)
[2017-02-21] MEDS ORDERED: cloNIDine HCL 0.1 MG TAB PO PRN ×2 (11:00)
[2017-02-21] MEDS ORDERED: NITROGLYCERIN 0.4 MG SL 25 TABS/BTL SL PRN ×2 (11:00)
[2017-02-21] MEDS ORDERED: GELATIN 12 MM/7 MM FOAM TOP PRN ×2 (11:00)
[2017-02-21] MEDS ORDERED: MANNITOL 12.5 GM/50 ML VIAL IV PRN ×2 (11:00)
[2017-02-21] MEDS ORDERED: ONDANSETRON HCL 4 MG/2 ML VIAL IV PUSH PRN ×2 (11:00)
[2017-02-21] MEDS ORDERED: MIDAZOLAM HCL 5 MG/ML VIAL (1 ML) ONE ×2 (12:47)
[2017-02-21] MEDS ORDERED: FLUMAZENIL 0.5 MG/5 ML VIAL ONE ×4 (13:42)
[2017-02-21] MEDS ORDERED: FLUMAZENIL 0.5 MG/5 ML VIAL IV ONE ×2 (14:00)
--- NOTE | 2017-02-21 14:12 | PD.PROCEDR ---
Central Line Procedure REASON FOR PROCEDURE Central venous access PROCEDURE PERFORMED Central line placement: RIJ central line CONSENT Informed consent for procedure was obtained and time out performed. The risks and benefits of the procedure were discussed to include but limited to bleeding , clot formation, infection, and even . ANESTHESIA Local injection of 1% Lidocaine DESCRIPTION OF THE PROCEDURE The patient was placed in supine, mild Trendelenburg position. The area was exposed and cleansed with ChloraPrep, times two. Large sterile drape was used to cover the patient, with the site exposed, under sterile conditions including cap, face mask, sterile gown, and sterile gloves. On single attempt, the introducer needle was inserted with negative pressure in syringe and venous flash was obtained. The guide wire was then advanced without any restriction and the needle was removed. The dilator was used without any complications. Using Seldinger technique the 20 CM 7f double lumen catheter was advanced over the guide wire to a depth of 17 centimeters. The guide wire was removed. All ports were aspirated with dark venous blood return and flushed easily with sterile saline. All ports were capped. Antibiotic disc was placed around central line at puncture site. The central line was secured to the skin with two interrupted 2.0 silk sutures. The area was bandaged with sterile see- through central line bandage. RADIOLOGICAL DATA Ultrasound guidance was used to locate RIJ COMPLICATIONS: No apparent complications ESTIMATED BLOOD LOSS: Less than 1 cc. Savi Fraga MD Feb 21, 2017 14:12
--- NOTE | 2017-02-21 14:36 | RADRPT ---
EXAM DATE/TIME: 02/21/2017 14:05 [facility] COMPARISON: CHEST SINGLE AP, February 21, 2017, 4:36. INDICATIONS : Central line placement. MEDICAL HISTORY : Cardiovascular disease. Hypertension Diabetes mellitus type II. SURGICAL HISTORY : None. ENCOUNTER: Initial ACUITY: 1 day PAIN SCORE: Non-responsive. LOCATION: Bilateral chest FINDINGS: The cardiac silhouette is enlarged in transverse diameter. There are findings of congestive heart matthew lure with interstitial and alveolar opacity bilaterally. A right sided internal jugular vein catheter is in place without pneumothorax with its tip in the superior vena cava. A left sided subclavian vei n catheter is in place without pneumothorax with its tip in the superior vena cava. Small bilateral p leural effusions are identified. CONCLUSION: 1. Uncomplicated line placement. No evidence of pneumothorax. Gary Diaz MD on February 21, 2017 at 14:34 Board Certified Radiologist. This report was verified electronically.
[2017-02-21] MEDS: HEPARIN SODIUM - IV 10,000 UNITS/10 ML VIAL PRN ×2 (14:47)
[2017-02-21] MEDS: GENTAMICIN SULFATE (DIALYSIS USE ONLY) 20 MG/2 ML VIAL OTHER PRN ×2 (14:48)
[2017-02-21] MEDS: SODIUM CHLOR 0.45% 1000 ML INJ 1,000 ML IV SCH ×2 (16:34)
[2017-02-22] VITALS (21 sets, daily range): BP systolic 83–148; BP diastolic 51–71; PULSE 64–81; RESP 16–39; TEMP 97–98.2; O2SAT 93–100
[2017-02-22] MEDS: CHLORHEXIDINE GLUCONATE 2 % 1 PACK (2 CLOTHS) TOP SCH ×2 (04:00)
[2017-02-22] MEDS: RESP: ALBUTEROL 2.5 MG/IPRATROPIUM 0.5 MG NEB (SCH) INH ×8 (04:05→20:17)
[2017-02-22] MEDS: HEPARIN SODIUM - SQ 10,000 UNITS/ML VIAL SQ SCH ×2 (04:40)
[2017-02-22] MEDS: PIPERACIL-TAZO 2.25 GM PREMIX 50 ML IV SCH ×8 (04:40→21:10)
[2017-02-22] MEDS: METOPROLOL TARTRATE 25 MG TAB PO SCH ×6 (04:41→19:41)
[2017-02-22 07:14] LABS: AUTOMATED NEUTROPHIL # 8.1 TH/MM3 (1.8-7.7); BASOPHIL % 0.2 % (0.0-2.0); EOSINOPHIL % 0.5 % (0.0-4.0); HEMATOCRIT 30.4 % (39.0-51.0); LYMPH % 9.6 % (9.0-44.0); LYMPHOCYTE # 0.9 TH/MM3 (1.0-4.8); MEAN CELL VOLUME 90.9 FL (80.0-100.0); MEAN CORPUSCULAR HEMOGLOBIN 29.9 PG (27.0-34.0); MEAN CORPUSCULAR HGB CONC 32.9 % (32.0-36.0); MONO % 6.4 % (0.0-8.0); MONOCYTE # 0.6 TH/MM3 (0-0.9); NEUT % 83.3 % (16.0-70.0); PLATELET COUNT 38 TH/MM3 (150-450); RED BLOOD COUNT 3.34 MIL/MM3 (4.50-5.90); RED CELL DISTRIBUTION WIDTH 16.8 % (11.6-17.2); WHITE BLOOD COUNT 9.8 TH/MM3 (4.0-11.0)
[2017-02-22 07:22] LABS: BICARBONATE 18.5 MEQ/L (21.0-32.0); CALCIUM 8.2 MG/DL (8.5-10.1); CREATININE 4.95 MG/DL (0.60-1.30)
[2017-02-22] MEDS: INSULIN ASPART SUPPLEMENTAL SCALE SQ SCH ×6 (08:00→17:00)
[2017-02-22] MEDS: INSULIN ASPART 1,000 UNITS/10 ML VIAL SQ SCH ×6 (08:00→17:00)
--- NOTE | 2017-02-22 08:19 | HHI.PR ---
Subjective Remarks in no acute distress and somewhat lethargic. although still on restraints with some wheezing. d/w the RN and the daughter at the bedside. Objective Vitals Vital Signs Date Time Temp Pulse Resp B/P (MAP) Pulse Ox O2 Delivery O2 Flow Rate FiO2 02/22/17 08:10 100 Nasal Cannula 4.00 02/22/17 06:00 69 02/22/17 04:06 100 Nasal Cannula 4.00 02/22/17 04:00 78 02/22/17 04:00 97.9 78 39 99/69 (79) 93 02/22/17 02:00 79 02/22/17 00:00 81 02/22/17 00:00 98.0 81 36 107/67 (80) 99 02/21/17 22:00 84 02/21/17 20:18 97 Nasal Cannula 4.00 02/21/17 20:00 97.7 79 33 98/63 (75) 100 02/21/17 20:00 79 02/21/17 18:00 80 02/21/17 16:00 98.6 78 24 104/64 (77) 100 02/21/17 16:00 78 02/21/17 14:00 68 02/21/17 12:00 74 02/21/17 12:00 98.3 74 25 108/63 (78) 100 02/21/17 10:00 71 02/21/17 08:22 100 Nasal Cannula 2.00 I/O 02/21/17 02/21/17 02/21/17 02/22/17 02/22/17 02/22/17 07:00 15:00 23:00 07:00 15:00 23:00 Intake Total 50 ml 1650 ml 936 ml Output Total 25 ml 3000 ml 50 ml Balance -25 ml 50 ml -1350 ml 886 ml Intake Oral 480 ml 120 ml IV Total 50 ml 1170 ml 816 ml Output Urine Total 25 ml 50 ml Hemodialysis 3000 ml # Bowel Movements 1 1 Result Diagram: 02/22/17 04002/22/17 0400 Imaging Last Impressions Chest X-Ray 02/21/17 0600 Signed Impressions: Service Date/Time: Tuesday, February 21, 2017 04:36 - CONCLUSION: Bibasilar areas of suspected consolidation/atelectasis and effusion being worse on the right. The findings have worsened since the prior exam. Flakito Chan MD Liver Ultrasound 02/20/17 0000 Signed Impressions: Service Date/Time: Monday, February 20, 2017 10:51 - CONCLUSION: Gallstones and gallbladder wall thickening. There is no intrahepatic biliary duct dilatation. Rylan Wang MD FACR Head CT 02/19/17 1205 Signed Impressions: Service Date/Time: February 13:02 - CONCLUSION: 1. Cortical atrophy. 2. No acute abnormality identified. The examination is stable compared to prior dated 04/17/12. Sharath Wang MD Renal Ultrasound 02/19/17 0000 Signed Impressions: Service Date/Time: February 17:19 - CONCLUSION: No evidence of hydronephrosis. Indwelling Scott catheter with collapsed bladder in thickened bladder wall. Cal Tomlinson MD Objective Remarks GENERAL: with some wheezing. CARDIOVASCULAR: Regular rate and regular rhythm without murmurs, gallops, or rubs. RESPIRATORY: bilateral wheezing. GASTROINTESTINAL: Abdomen soft, non-tender, nondistended. Normal, active bowel sounds MUSCULOSKELETAL: Extremities without clubbing, cyanosis, or edema. NEURO: Awake but confused. Medications and IVs Current Medications IV Flush (NS Flush) 2 ml UNSCH PRN IV FLUSH FLUSH AFTER USING IV ACCESS; Start 02/19/17 at 12:15; Stop 02/19/17 at 16:15; Status DC Sodium Chloride 1,000 ml @ 1,000 mls/hr Q1H IV Last administered on 12:17; Start 02/19/17 at 12:05; Stop 02/19/17 at 13:04; Status DC Sodium Chloride 1,000 ml @ 999 mls/hr BOLUS ONCE IV Last administered on 12:18; Start 02/19/17 at 12:15; Stop 02/19/17 at 13:15; Status DC Insulin Human Regular (NovoLIN R INJ) 10 units ONCE ONCE IV PUSH Last administered on 02/19/17 12:23; Start 02/19/17 at 12:15; Stop 02/19/17 at 12 :16; Status DC Sodium Chloride 1,000 ml @ 999 mls/hr BOLUS ONCE IV Last administered on 13:25; Start 02/19/17 at 13:00; Stop 02/19/17 at 14:00; Status DC Sodium Chloride 1,000 ml @ 250 mls/hr Q4H IV Last administered on 02/19/17 14:36; Start 02/19/17 at 13:35; Stop 02/19/17 at 16:40; Status DC Dextrose/Sodium Chloride 1,000 ml @ 200 mls/hr Q5H IV ; Start 02/19/17 at 13: 35; Stop 02/20/17 at 00:07; Status DC Insulin Human Regular 100 units/ Sodium Chloride 100 ml @ 6.5 mls/hr TITRATE IV Last administered on 02/20/17 00:30; Start 02/19/17 at 15:00; Stop 02/20 at 09:24; Status DC Sodium Bicarbonate (Sodium Bicarbonate 8.4% Inj) 100 meq UNSCH PRN IV PUSH SEE LABEL COMMENTS; Start 02/19/17 at 13:45 Sodium Bicarbonate (Sodium Bicarbonate 8.4% Inj) 50 meq UNSCH PRN IV PUSH SEE LABEL COMMENTS; Start 02/19/17 at 13:45 Sodium Phosphate 15 mmol/Sodium Chloride 105 ml @ 25 mls/hr UNSCH PRN IV SEE LABEL COMMENTS; Start 02/19/17 at 13:45 Miscellaneous Information 1 Q361D XX ; Start 02/19/17 at 13:45; Stop 02/19/17 at 16:14; Status DC Chlorhexidine Gluconate (Chlorhexidine 2% Cloth) 3 pack Taper DAILY@04 TOP ; Start 02/20/17 at 04:00; Stop 02/20/17 at 04:00; Status DC Chlorhexidine Gluconate (Chlorhexidine 2% Cloth) 3 pack UNSCH PRN TOP HYGIENIC CARE; Start 02/19/17 at 13:45; Stop 02/19/17 at 16:14; Status DC Piperacillin Sod/ Tazobactam Sod 100 ml @ 200 mls/hr ONCE ONCE IV Last administered on 02/19/17 14:36; Start 02/19/17 at 14:30; Stop 02/19/17 at 14 :59; Status DC Vancomycin HCl 1000 mg/Sodium Chloride 250 ml @ 250 mls/hr ONCE ONCE IV Last administered on 02/19/17 14:36; Start 02/19/17 at 14:30; Stop 02/19/17 at 15 :29; Status DC Sodium Chloride (NS Flush) 2 ml UNSCH PRN IV FLUSH FLUSH AFTER USING IV ACCESS ; Start 02/19/17 at 14:15 Sodium Chloride (NS Flush) 2 ml BID IV FLUSH Last administered on 02/21/17 21 :42; Start 02/19/17 at 21:00 Pantoprazole Sodium (Protonix Inj) 40 mg DAILY IV PUSH Last administered on 07:46; Start 02/20/17 at 09:00 Albuterol/ Ipratropium (Duoneb Neb) 1 ampule Q6HR NEB INH Last administered on 02/22/17 04:05; Start 02/19/17 at 16:00 Albuterol/ Ipratropium (Duoneb Neb) 1 ampule Q4HR NEB PRN INH WHEEZING; Start 02/19/17 at 14:15 Heparin Sodium (Porcine) (Heparin Inj) 5,000 units Q12H SQ Last administered on 02/21/17 16:36; Start 02/19/17 at 17:00 Miscellaneous Information 1 Q361D XX ; Start 02/19/17 at 14:15 Chlorhexidine Gluconate (Chlorhexidine 2% Cloth) 3 pack Taper DAILY@04 TOP Last administered on 02/22/17 04:00; Start 02/20/17 at 04:00; Stop 02/16/18 at 03:59 Chlorhexidine Gluconate (Chlorhexidine 2% Cloth) 3 pack UNSCH PRN TOP HYGIENIC CARE; Start 02/19/17 at 14:15 Senna/Docusate Sodium (Princess-Colace) 1 tab BID PO Last administered on 21:42; Start 02/19/17 at 21:00 Magnesium Hydroxide (Milk Of Magnesia Liq) 30 ml Q12H PRN PO MILD - MODERATE CONSTIPATION; Start 02/19/17 at 14:15 Sennosides (Senokot) 17.2 mg Q12H PRN PO MODERATE - SEVERE CONSTIPATION; Start 02/19/17 at 14:15 Bisacodyl (Dulcolax Supp) 10 mg DAILY PRN RECTAL SEVERE CONSITIPATION; Start 02/19/17 at 14:15 Lactulose (Lactulose Liq) 30 ml DAILY PRN PO SEVERE CONSITIPATION; Start 02/19 at 14:15 Aspirin (Aspirin Chew) 81 mg DAILY CHEW Last administered on 02/21/17 07:46; Start 02/19/17 at 15:15 Piperacillin Sod/ Tazobactam Sod 50 ml @ 100 mls/hr Q6H IV Last administered on 02/22/17 04:40; Start 02/19/17 at 21:00 Sodium Chloride 1,000 ml @ 999 mls/hr BOLUS ONCE IV Last administered on 16:53; Start 02/19/17 at 16:15; Stop 02/19/17 at 17:15; Status DC Metoprolol Tartrate (Lopressor) 25 mg Q8HR PO Last administered on 02/22/17 04:41; Start 02/19/17 at 16:30 Sodium Chloride 1,000 ml @ 100 mls/hr Q10H IV Last administered on 02/19/17 17:22; Start 02/19/17 at 16:45; Stop 02/20/17 at 00:07; Status DC Sodium Bicarbonate (Sodium Bicarbonate 8.4% Inj) 50 meq ONCE ONCE IV PUSH Last administered on 02/19/17 16:50; Start 02/19/17 at 17:00; Stop 02/19/17 at 17:01; Status DC Sodium Chloride 1,000 ml @ 999 mls/hr BOLUS ONCE IV ; Start 02/19/17 at 17:00 ; Stop 02/19/17 at 18:00; Status DC Melatonin (Melatonin) 5 mg HS PRN PO SLEEP Last administered on 02/20/17 21: 45; Start 02/19/17 at 22:15 Potassium Chloride 100 ml @ 25 mls/hr BOLUS ONCE IV Last administered on 00:18; Start 02/20/17 at 00:15; Stop 02/20/17 at 04:14; Status DC Dextrose 1,000 ml @ 120 mls/hr Q8H20M IV Last administered on 02/20/17 08:59 ; Start 02/20/17 at 00:15; Stop 02/20/17 at 09:24; Status DC Miscellaneous Information 1 ONCE ONCE .XX ; Start 02/20/17 at 09:30; Stop at 10:06; Status DC Miscellaneous Information 1 ONCE ONCE .XX ; Start 02/20/17 at 09:30; Stop at 10:01; Status DC Insulin Detemir (Levemir Inj) 5 units Q12H SQ Last administered on 02/21/17 21:30; Start 02/20/17 at 09:30 Insulin Aspart (NovoLOG INJ) 3 units TIDAC SQ Last administered on 02/21/17 07:50; Start 02/20/17 at 12:00 Insulin Aspart (NovoLOG SUPPLEMENTAL SCALE) 1 ACHS SLIDING SCALE SQ Last administered on 02/20/17 21:31; Start 02/20/17 at 12:00 Dextrose (D50w (Vial) Inj) 50 ml UNSCH PRN IV PUSH HYPOGLYCEMIA-SEE COMMENTS; Start 02/20/17 at 09:30 Glucagon (Glucagon Inj) 1 mg UNSCH PRN OTHER HYPOGLYCEMIA-SEE COMMENTS; Start 02/20/17 at 09:30 Sodium Chloride 1,000 ml @ 60 mls/hr [id number] IV Last administered on 16:34; Start 02/20/17 at 09:30 Haloperidol Lactate (Haldol Inj) 2 mg Q4H PRN IV agitation; Start 02/20/17 at 09:45 Lorazepam (Ativan Inj) 1 mg Q6H PRN IV PUSH ANXIETY AND/OR AGITATION; Start at 08:00 Sodium Chloride 1,000 ml @ 0 mls/hr Q0M PRN OTHER For Prime & Rinse Back; Start 02/21/17 at 10:55 Heparin Sodium (Porcine) (Heparin Inj) 8,000 units UNSCH PRN IV FLUSH WITH DIALYSIS; Start 02/21/17 at 11:00 Sodium Chloride 1,000 ml @ 200 mls/hr Q5H PRN IV WITH DIALYSIS Last administered on 02/21/17 14:48; Start 02/21/17 at 10:55 Sodium Chloride 1,000 ml @ 0 mls/hr Q0M PRN OTHER WITH DIALYSIS; Start at 10:55 Mannitol (Mannitol Inj) 12.5 gm UNSCH PRN IV WITH DIALYSIS Last administered on 02/21/17 14:48; Start 02/21/17 at 11:00 Albumin Human 100 ml @ 60 mls/hr UNSCH PRN IV WITH DIALYSIS; Start 02/21/17 at 11:00 Sodium Chloride (NS Flush) 5 ml UNSCH PRN IV FLUSH WITH DIALYSIS; Start at 11:00 Heparin Sodium (Porcine) (Heparin Inj) UNSCH PRN .XX WITH DIALYSIS Last administered on 02/21/17t 14:47; Start 02/21/17 at 11:00 Gentamicin Sulfate (Gentamicin (Dialysis) Inj) 20 mg UNSCH PRN OTHER WITH DIALYSIS Last administered on 02/21/17t 14:48; Start 02/21/17 at 11:00 Ondansetron HCl (Zofran Inj) 4 mg UNSCH PRN IV PUSH WITH DIALYSIS; Start 02/21 at 11:00 Acetaminophen (Tylenol) 650 mg UNSCH PRN PO for headach, pain, temp > 101F; Start 02/21/17 at 11:00 Diphenhydramine HCl (Benadryl) 25 mg UNSCH PRN PO for hives/itching/anaphylaxis ; Start 02/21/17 at 11:00 Nitroglycerin (Nitrostat Sl) 0.4 mg UNSCH PRN SL CHEST PAIN; Start 02/21/17 at 11:00 Clonidine (Catapres) 0.1 mg UNSCH PRN PO for BP > 180/100 X 2 readings; Start 02/21/17 at 11:00 Gelatin (Gelfoam 12 Mm/7 Mm Top) 1 foam UNSCH PRN TOP SEE LABEL COMMENTS; Start 02/21/17 at 11:00 Midazolam HCl (Versed Inj) 5 mg STK-MED ONCE .ROUTE ; Start 02/21/17 at 12:47; Stop 02/21/17 at 12:48; Status DC Flumazenil (Romazicon Inj) 0.5 mg STK-MED ONCE .ROUTE ; Start 02/21/17 at 13:42 ; Stop 02/21/17 at 13:43; Status DC Flumazenil (Romazicon Inj) 0.5 mg STK-MED ONCE .ROUTE ; Start 02/21/17 at 13:42 ; Stop 02/21/17 at 13:43; Status DC Flumazenil (Romazicon Inj) 0.5 mg STAT ONCE IV ; Start 02/21/17 at 14:00; Stop 02/21/17 at 14:01; Status DC A/P Problem List: (1) Acute metabolic encephalopathy ICD Code: G93.41 - Metabolic encephalopathy (2) Altered mental status ICD Code: R41.82 - Altered mental status, unspecified Status: Acute (3) DKA (diabetic ketoacidoses) ICD Code: E13.10 - Other specified diabetes mellitus with ketoacidosis without coma Status: Acute (4) Non-STEMI (non-ST elevated myocardial infarction) ICD Code: I21.4 - Non-ST elevation (NSTEMI) myocardial infarction Status: Acute (5) Dehydration with hypernatremia ICD Code: E87.0 - Hyperosmolality and hypernatremia Status: Acute (6) Sepsis ICD Code: A41.9 - Sepsis, unspecified organism Status: Acute (7) UTI (urinary tract infection) ICD Code: N39.0 - Urinary tract infection, site not specified Status: Acute (8) Acute renal failure ICD Code: N17.9 - Acute kidney failure, unspecified Status: Acute (9) Hyperglycemia ICD Code: R73.9 - Hyperglycemia, unspecified Status: Acute (10) Lactic acidemia ICD Code: E87.2 - Acidosis (11) Transaminitis ICD Code: R74.0 - Nonspecific elevation of levels of transaminase and lactic acid dehydrogenase [LDH] (12) Respiratory insufficiency ICD Code: R06.89 - Other abnormalities of breathing Assessment and Plan A/P Acute metabolic encephalopathy -Treat agitation with when necessary Haldol - Encephalopathy most likely secondary to DKA/hyperglycemia severe dehydration with uremia and probable sepsis Respiratory insufficiency - Tachypnea most likely secondary to metabolic acidosis, improved - DuoNeb every 6 hours when necessary, bicarbonate IV as needed Lactic acidemia elevated troponin Hypertension cardiomyopathy -echo with EF 25% - Aspirin 81 mg daily. - Metoprolol 25 mg every 8 hours - Avoid statins due to transaminitis -cardiology following. Transaminitis - Monitor liver enzymes most likely secondary to hypotension/severe dehydration -will monitor Acute on chronic kidney disease Severe dehydration Hyperkalemia - Baseline creatinine 1.8 to 2. Acute worsening secondary to severe dehydration and DKA - Monitor renal function closely. continue Scott catheter. -HD initiated. - Nephrology following. Probable sepsis UTI - Received IV vancomycin and Zosyn in the ED. Continue Zosyn - one bottle of the blood cultures with staph coag. negative. Anemia thrombocytopenia- now trending down. -hold heparin and aspirin -consult hematology -Monitor CBC, CMP -B12 normal, iron studies indicate anemia of chronic disease DKA-resolved - DC'ed DKA protocol. - Replace electrolytes cautiously due to acute kidney failure -started on levemir and sliding scale coverage. PROPH: - Bilateral lower extremity SCDs. hold Heparin as noted above. - IV Protonix 40 q24 hours will consider palliative care evaluation. d/w the RN. Problem Qualifiers (1) Altered mental status: Qualified Codes: R41.82 - Altered mental status, unspecified (2) DKA (diabetic ketoacidoses): (3) Sepsis: Qualified Codes: A41.9 - Sepsis, unspecified organism (4) UTI (urinary tract infection): (5) Acute renal failure: Qualified Codes: N17.9 - Acute kidney failure, unspecified Orion Braden MD Feb 22, 2017 08:19
[2017-02-22] MEDS: PANTOPRAZOLE SODIUM 40 MG VIAL IV PUSH SCH ×2 (08:21)
[2017-02-22] MEDS: SODIUM CHLORIDE 0.9% FLUSH 10 ML FLUSH IV FLUSH SCH ×4 (08:21→21:11)
[2017-02-22 08:22] LABS: OVALOCYTES 1+ (NORMAL)
[2017-02-22] MEDS: INSULIN DETEMIR 100 UNITS/ML VIAL SQ SCH ×2 (08:22)
[2017-02-22] MEDS: DOCUSATE SODIUM 50 MG/SENNA 8.6 MG TAB PO SCH ×4 (08:22→19:41)
[2017-02-22] MEDS: SODIUM CHLOR 0.45% 1000 ML INJ 1,000 ML IV SCH ×2 (12:14)
--- NOTE | 2017-02-22 13:46 | HHI.NPPN ---
Subjective General Problems: [place]at[place] Acidosis Renal Failure: Chronic, Acute Additional Remarks Patient seen in bed, confused, ongoing minimal UOP with valenzuela in place. Tolerated HD yesterday with 3L UF. Hypoglycemia earlier today Objective Data Data Vital Signs Date Time Temp Pulse Resp B/P (MAP) Pulse Ox O2 Delivery O2 Flow Rate FiO2 02/22/17 08:10 100 Nasal Cannula 4.00 02/22/17 06:00 69 02/22/17 04:06 100 Nasal Cannula 4.00 02/22/17 04:00 78 02/22/17 04:00 97.9 78 39 99/69 (79) 93 02/22/17 02:00 79 02/22/17 00:00 81 02/22/17 00:00 98.0 81 36 107/67 (80) 99 02/21/17 22:00 84 02/21/17 20:18 97 Nasal Cannula 4.00 02/21/17 20:00 97.7 79 33 98/63 (75) 100 02/21/17 20:00 79 02/21/17 18:00 80 02/21/17 16:00 98.6 78 24 104/64 (77) 100 02/21/17 16:00 78 02/21/17 14:00 68 -: 02/22/17 0400 02/22/17 0400 Tubes & Lines: Valenzuela Drip Comment D5W Physical Exam General Appearance: No Acute Distress, Comfortable, Malnourished Eyes Eye Exam: Pupils Equal Throat Throat Exam: Oral Mucosa [place] & Moist Pulmonary Resp Exam: Clear Bilaterally, Breath Sounds Equal Cardiology CV Exam: Regular, Normal Sinus Rhythm Gastrointestinal/Abdomen GI Exam: Soft, Non-Tender, Bowel Sounds Present Musculoskeletal MS Exam: Joints Intact, Normal Tone, Unable to Ambulate Integumentary Skin Exam: Clear, Warm, Dry, Intact Extremeties Extremities Exam: No Edema, Pedal Pulses Palpable Neurologic Neuro Exam: Awake, Obtunded Assessment/Plan Assessment Summary: HERVE/Acute Renal Failure, Diabetes Mellitus Electrolyte Assessment: Hypernatremia, Metabolic Acidosis Problem List: (1) Acute renal failure ICD Codes: N17.9 - Acute kidney failure, unspecified Status: Acute Plan: This patient has underlying renal impairment, creatinine 1.8-2 at baseline He has 1.2 g proteinuria, which 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 HERVE likely due to dehydration, sepsis, DKA, and now has apparently progressed to ATN Renal US negative for obstruction Given minimal UOP, acidosis, encephalopathy/uremia? - HD initiated yesterday, with 3L UF Will plan next HD tomorrow. Stop IVFs, planned NG tube, will need nutritional support/ tube feeds. Palliative care consultation may be appropriate given living situation (2) Dehydration with hypernatremia ICD Codes: E87.0 - Hyperosmolality and hypernatremia Status: Acute Plan: HD started yesterday. Poor PO intake, planned NG tube today. Na stable (3) DKA (diabetic ketoacidoses) ICD Codes: E13.10 - Other specified diabetes mellitus with ketoacidosis without coma Status: Acute Plan: Hypoglycemia earlier today, continue to adjust insulin with primary team. (4) Sepsis ICD Codes: A41.9 - Sepsis, unspecified organism Status: Acute Plan: Elevated lactic acid Given vancomycin, now on zosyn. 1/2 blood cultures with coag neg staph. (5) Elevated troponin ICD Codes: R74.8 - Abnormal levels of other serum enzymes Plan: cardiology has evaluated suspect demand ischemia as etiology of elevated troponin levels 2D echo has been ordered Problem Qualifiers (1) Acute renal failure: Qualified Codes: N17.9 - Acute kidney failure, unspecified (2) DKA (diabetic ketoacidoses): (3) Sepsis: Qualified Codes: A41.9 - Sepsis, unspecified organism Sharath Avila MD Feb 22, 2017 13:45
[2017-02-22] MEDS ORDERED: DEXTROSE 5% IN WATE 1000ML INJ 1,000 ML IV SCH (18:45)
--- NOTE | 2017-02-22 19:50 | MB ---
cc: LUKASZ ROY M.D. DATE OF CONSULTATION: 02/22/2017. REASON FOR CONSULTATION: Consult requested by the hospitalist for evaluation of thrombocytopenia. HISTORY OF PRESENT ILLNESS: Rex is a 77-year-old male. He is a very poor historian. He is confused and unable to give any history. History is obtained through review of the records. The patient was brought into the hospital with change in mental status. He has multiple medical problems including diabetes mellitus, hypertension, hypercholesterolemia and questionable developmental delay. The patient was found to be septic and was started on antibiotics. He was also found to have diabetic ketoacidosis and was treated for that. He has acute on chronic renal failure. Nephrology was consulted. The patient had dialysis yesterday. His platelet count is dropping and I have been asked to see him for that. REVIEW OF SYSTEMS: Review of systems is not possible due to the patient's mental status. PAST MEDICAL HISTORY: 1. Diabetes mellitus. 2. Hypertension. 3. Hypercholesterolemia. 4. Possible developmental delay. PAST SURGICAL HISTORY: 1. Cataracts. 2. Appendectomy. ALLERGIES: None. MEDICATIONS: 1. Zosyn. 2. Lantus. 3. Amlodipine. 4. Pravastatin. FAMILY HISTORY: family history is unable to be obtained. SOCIAL HISTORY: Social history is unable to be obtained. PHYSICAL EXAMINATION: GENERAL: This is a well-developed, chronically ill-appearing -[place] male. VITAL SIGNS: Temperature 97.5, heart rate is 67, blood pressure is 111/59, respiratory rate is 33. HEAD, EYES, EARS, NOSE, THROAT: Pupils equal, round and reactive to light and accommodation. Extraocular muscles intact. Oral mucosa is very dry. NECK: No lymphadenopathy noted. LUNGS: Clear. No wheezes, rales or rhonchi. HEART: Regular rate and rhythm. ABDOMEN: Abdomen soft. EXTREMITIES: No pedal edema. NEUROLOGIC: The patient is confused and lethargic. SKIN: No significant lesions are noted. ASSESSMENT: 1. Thrombocytopenia. This is multifactorial due to sepsis, DIC and medications such as Zosyn. 2. Acute renal failure on dialysis. PLAN: I have reviewed his available records. When the patient came into the hospital three days ago, his platelet count was 97,000. Yesterday the platelet count dropped to 58,000 and today it is 38,000. He is not bleeding. His hemoglobin remains stable at around 10. The patient has 17% bandemia, which is consistent with sepsis syndrome. He is on the antibiotic, Zosyn. Zosyn also can cause severe thrombocytopenia. His blood cultures showed Staph coagulase-negative on February 19, three days ago. The urine culture is negative. I will order the DIC profile. I expect his platelet count to improve once the sepsis resolves. Consider changing the Zosyn to something else, which does not cause thrombocytopenia. I will leave upto the admitting physician to change the antibiotic. Thank you for asking my opinion. MD MARIELLE South/ASHVIN /6:33 PM /7:36 PM SMILEY
[2017-02-22 23:13] LABS: INTERNATIONAL NORMALIZED RATIO 2.5 RATIO; PROTHROMBIN TIME - PATIENT 28.6 SEC (9.8-11.6)
[2017-02-22 23:14] LABS: D-DIMER 12.14 MG/L FEU (0.00-0.50)
[2017-02-23] VITALS (22 sets, daily range): BP systolic 90–127; BP diastolic 52–77; PULSE 70–84; RESP 17–61; TEMP 97.9–98.5; O2SAT 100
[2017-02-23] MEDS: RESP: ALBUTEROL 2.5 MG/IPRATROPIUM 0.5 MG NEB (SCH) INH ×14 (00:41→23:17)
[2017-02-23] MEDS ORDERED: VANCOMYCIN INJ 1,000 MG in SODIUM CHLOR 0.9% 250 ML INJ 250 ML IV ONE ×4 (01:30)
[2017-02-23] MEDS: CHLORHEXIDINE GLUCONATE 2 % 1 PACK (2 CLOTHS) TOP SCH ×2 (04:00)
--- NOTE | 2017-02-23 05:43 | HHI.PR ---
Addendum to Inpatient Note Addendum Reason: Additional Documentation Additional Information RN reported labs ordered to Dr. Fraire, who suggested Zosyn be stopped due to thrombocytopenia. -D/C Zosyn, 1 gm of Vanco given, nephrology to dose -Consult ID for assistance Fabiana Urrutia Feb 23, 2017 05:43
[2017-02-23] MEDS: METOPROLOL TARTRATE 25 MG TAB PO SCH ×6 (06:00→20:10)
[2017-02-23 06:47] LABS: AUTOMATED NEUTROPHIL # 8.6 TH/MM3 (1.8-7.7); BASOPHIL % 0.4 % (0.0-2.0); EOSINOPHIL % 0.3 % (0.0-4.0); HEMATOCRIT 28.3 % (39.0-51.0); HEMOGLOBIN 9.3 GM/DL (13.0-17.0); LYMPH % 7.7 % (9.0-44.0); LYMPHOCYTE # 0.8 TH/MM3 (1.0-4.8); MEAN CELL VOLUME 90.7 FL (80.0-100.0); MEAN CORPUSCULAR HEMOGLOBIN 29.9 PG (27.0-34.0); MEAN PLATELET VOLUME 11.5 FL (7.0-11.0); MONO % 7.5 % (0.0-8.0); MONOCYTE # 0.8 TH/MM3 (0-0.9); NEUT % 84.1 % (16.0-70.0); PLATELET COUNT 37 TH/MM3 (150-450); RED BLOOD COUNT 3.12 MIL/MM3 (4.50-5.90); RED CELL DISTRIBUTION WIDTH 16.6 % (11.6-17.2); WHITE BLOOD COUNT 10.3 TH/MM3 (4.0-11.0)
[2017-02-23 07:12] LABS: CALCIUM 8.3 MG/DL (8.5-10.1); CREATININE 5.93 MG/DL (0.60-1.30)
--- NOTE | 2017-02-23 08:03 | HHI.PR ---
Subjective Remarks ill-looking; lethragic but arousbale. no fever. still on four point restraints. somewhat tachypneic. blood sugar trend noted. d/w the RN. Objective Vitals Vital Signs Date Time Temp Pulse Resp B/P (MAP) Pulse Ox O2 Delivery O2 Flow Rate FiO2 02/23/17 06:00 84 02/23/17 04:00 81 02/23/17 04:00 98.5 81 30 127/74 (91) 100 02/23/17 03:59 100 Nasal Cannula 3.00 02/23/17 02:00 82 02/23/17 00:42 100 Nasal Cannula 4.00 02/23/17 00:00 97.9 79 34 124/75 (91) 100 02/23/17 00:00 79 02/22/17 22:00 78 02/22/17 20:20 100 Nasal Cannula 4.00 02/22/17 20:00 98.2 74 24 148/60 (89) 100 02/22/17 20:00 74 02/22/17 18:00 73 02/22/17 17:00 71 02/22/17 16:00 97.3 71 31 116/71 (86) 100 02/22/17 16:00 71 02/22/17 15:00 68 02/22/17 14:00 68 02/22/17 13:00 67 02/22/17 12:00 97.5 67 33 111/59 (76) 100 02/22/17 12:00 67 02/22/17 11:00 66 02/22/17 10:00 64 02/22/17 09:00 64 02/22/17 08:10 100 Nasal Cannula 4.00 02/22/17 08:00 64 02/22/17 08:00 97.0 64 16 83/51 (62) 100 I/O 02/22/17 02/22/17 02/22/17 02/23/17 02/23/17 02/23/17 07:00 15:00 23:00 07:00 15:00 23:00 Intake Total 936 ml 110 ml 100 ml 871 ml Output Total 50 ml 50 ml 40 ml Balance 886 ml 110 ml 50 ml 831 ml Intake Oral 120 ml Oral Supplement 240 ml IV Total 816 ml 110 ml 100 ml 631 ml Output Urine Total 50 ml 50 ml 40 ml # Bowel Movements 1 1 1 Result Diagram: 02/23/17 0600 02/23/17 0600 Imaging Last Impressions Chest X-Ray 02/21/17 0600 Signed Impressions: Service Date/Time: Tuesday, February 21, 2017 04:36 - CONCLUSION: Bibasilar areas of suspected consolidation/atelectasis and effusion being worse on the right. The findings have worsened since the prior exam. Flakito Chan MD Liver Ultrasound 02/20/17 0000 Signed Impressions: Service Date/Time: Monday, February 20, 2017 10:51 - CONCLUSION: Gallstones and gallbladder wall thickening. There is no intrahepatic biliary duct dilatation. Rylan Wang MD FACR Head CT 02/19/17 1205 Signed Impressions: Service Date/Time: February 13:02 - CONCLUSION: 1. Cortical atrophy. 2. No acute abnormality identified. The examination is stable compared to prior dated 04/17/12. Sharath Wang MD Renal Ultrasound 02/19/17 0000 Signed Impressions: Service Date/Time: February 17:19 - CONCLUSION: No evidence of hydronephrosis. Indwelling Scott catheter with collapsed bladder in thickened bladder wall. Cal Tomlinson MD Objective Remarks GENERAL: with some wheezing. CARDIOVASCULAR: Regular rate and regular rhythm without murmurs, gallops, or rubs. RESPIRATORY: bilateral wheezing. GASTROINTESTINAL: Abdomen soft, non-tender, nondistended. Normal, active bowel sounds MUSCULOSKELETAL: Extremities without clubbing, cyanosis, or edema. NEURO: Awake but confused. Medications and IVs Current Medications IV Flush (NS Flush) 2 ml UNSCH PRN IV FLUSH FLUSH AFTER USING IV ACCESS; Start 02/19/17 at 12:15; Stop 02/19/17 at 16:15; Status DC Sodium Chloride 1,000 ml @ 1,000 mls/hr Q1H IV Last administered on 12:17; Start 02/19/17 at 12:05; Stop 02/19/17 at 13:04; Status DC Sodium Chloride 1,000 ml @ 999 mls/hr BOLUS ONCE IV Last administered on 12:18; Start 02/19/17 at 12:15; Stop 02/19/17 at 13:15; Status DC Insulin Human Regular (NovoLIN R INJ) 10 units ONCE ONCE IV PUSH Last administered on 02/19/17 12:23; Start 02/19/17 at 12:15; Stop 02/19/17 at 12 :16; Status DC Sodium Chloride 1,000 ml @ 999 mls/hr BOLUS ONCE IV Last administered on 13:25; Start 02/19/17 at 13:00; Stop 02/19/17 at 14:00; Status DC Sodium Chloride 1,000 ml @ 250 mls/hr Q4H IV Last administered on 02/19/17 14:36; Start 02/19/17 at 13:35; Stop 02/19/17 at 16:40; Status DC Dextrose/Sodium Chloride 1,000 ml @ 200 mls/hr Q5H IV ; Start 02/19/17 at 13: 35; Stop 02/20/17 at 00:07; Status DC Insulin Human Regular 100 units/ Sodium Chloride 100 ml @ 6.5 mls/hr TITRATE IV Last administered on 02/20/17 00:30; Start 02/19/17 at 15:00; Stop 02/20 at 09:24; Status DC Sodium Bicarbonate (Sodium Bicarbonate 8.4% Inj) 100 meq UNSCH PRN IV PUSH SEE LABEL COMMENTS; Start 02/19/17 at 13:45 Sodium Bicarbonate (Sodium Bicarbonate 8.4% Inj) 50 meq UNSCH PRN IV PUSH SEE LABEL COMMENTS; Start 02/19/17 at 13:45 Sodium Phosphate 15 mmol/Sodium Chloride 105 ml @ 25 mls/hr UNSCH PRN IV SEE LABEL COMMENTS; Start 02/19/17 at 13:45 Miscellaneous Information 1 Q361D XX ; Start 02/19/17 at 13:45; Stop 02/19/17 at 16:14; Status DC Chlorhexidine Gluconate (Chlorhexidine 2% Cloth) 3 pack Taper DAILY@04 TOP ; Start 02/20/17 at 04:00; Stop 02/20/17 at 04:00; Status DC Chlorhexidine Gluconate (Chlorhexidine 2% Cloth) 3 pack UNSCH PRN TOP HYGIENIC CARE; Start 02/19/17 at 13:45; Stop 02/19/17 at 16:14; Status DC Piperacillin Sod/ Tazobactam Sod 100 ml @ 200 mls/hr ONCE ONCE IV Last administered on 02/19/17 14:36; Start 02/19/17 at 14:30; Stop 02/19/17 at 14 :59; Status DC Vancomycin HCl 1000 mg/Sodium Chloride 250 ml @ 250 mls/hr ONCE ONCE IV Last administered on 02/19/17 14:36; Start 02/19/17 at 14:30; Stop 02/19/17 at 15 :29; Status DC Sodium Chloride (NS Flush) 2 ml UNSCH PRN IV FLUSH FLUSH AFTER USING IV ACCESS ; Start 02/19/17 at 14:15 Sodium Chloride (NS Flush) 2 ml BID IV FLUSH Last administered on 02/22/17 21 :11; Start 02/19/17 at 21:00 Pantoprazole Sodium (Protonix Inj) 40 mg DAILY IV PUSH Last administered on 08:21; Start 02/20/17 at 09:00 Albuterol/ Ipratropium (Duoneb Neb) 1 ampule Q6HR NEB INH Last administered on 02/22/17 10:35; Start 02/19/17 at 16:00; Stop 02/22/17 at 13:56; Status DC Albuterol/ Ipratropium (Duoneb Neb) 1 ampule Q4HR NEB PRN INH WHEEZING; Start 02/19/17 at 14:15; Stop 02/22/17 at 13:57; Status DC Heparin Sodium (Porcine) (Heparin Inj) 5,000 units Q12H SQ Last administered on 02/21/17 16:36; Start 02/19/17 at 17:00; Status Future Hold Miscellaneous Information 1 Q361D XX ; Start 02/19/17 at 14:15 Chlorhexidine Gluconate (Chlorhexidine 2% Cloth) 3 pack Taper DAILY@04 TOP Last administered on 02/23/17 04:00; Start 02/20/17 at 04:00; Stop 02/16/18 at 03:59 Chlorhexidine Gluconate (Chlorhexidine 2% Cloth) 3 pack UNSCH PRN TOP HYGIENIC CARE; Start 02/19/17 at 14:15 Senna/Docusate Sodium (Princess-Colace) 1 tab BID PO Last administered on 08:22; Start 02/19/17 at 21:00 Magnesium Hydroxide (Milk Of Magnesia Liq) 30 ml Q12H PRN PO MILD - MODERATE CONSTIPATION; Start 02/19/17 at 14:15 Sennosides (Senokot) 17.2 mg Q12H PRN PO MODERATE - SEVERE CONSTIPATION; Start 02/19/17 at 14:15 Bisacodyl (Dulcolax Supp) 10 mg DAILY PRN RECTAL SEVERE CONSITIPATION; Start 02/19/17 at 14:15 Lactulose (Lactulose Liq) 30 ml DAILY PRN PO SEVERE CONSITIPATION; Start 02/19 at 14:15 Aspirin (Aspirin Chew) 81 mg DAILY CHEW Last administered on 02/21/17 07:46; Start 02/19/17 at 15:15; Status Future Hold Piperacillin Sod/ Tazobactam Sod 50 ml @ 100 mls/hr Q6H IV Last administered on 02/22/17 21:10; Start 02/19/17 at 21:00; Stop 02/23/17 at 01:15; Status DC Sodium Chloride 1,000 ml @ 999 mls/hr BOLUS ONCE IV Last administered on 16:53; Start 02/19/17 at 16:15; Stop 02/19/17 at 17:15; Status DC Metoprolol Tartrate (Lopressor) 25 mg Q8HR PO Last administered on 02/23/17 06:00; Start 02/19/17 at 16:30 Sodium Chloride 1,000 ml @ 100 mls/hr Q10H IV Last administered on 02/19/17 17:22; Start 02/19/17 at 16:45; Stop 02/20/17 at 00:07; Status DC Sodium Bicarbonate (Sodium Bicarbonate 8.4% Inj) 50 meq ONCE ONCE IV PUSH Last administered on 02/19/17 16:50; Start 02/19/17 at 17:00; Stop 02/19/17 at 17:01; Status DC Sodium Chloride 1,000 ml @ 999 mls/hr BOLUS ONCE IV ; Start 02/19/17 at 17:00 ; Stop 02/19/17 at 18:00; Status DC Melatonin (Melatonin) 5 mg HS PRN PO SLEEP Last administered on 02/20/17 21: 45; Start 02/19/17 at 22:15 Potassium Chloride 100 ml @ 25 mls/hr BOLUS ONCE IV Last administered on 00:18; Start 02/20/17 at 00:15; Stop 02/20/17 at 04:14; Status DC Dextrose 1,000 ml @ 120 mls/hr Q8H20M IV Last administered on 02/20/17 08:59 ; Start 02/20/17 at 00:15; Stop 02/20/17 at 09:24; Status DC Miscellaneous Information 1 ONCE ONCE .XX ; Start 02/20/17 at 09:30; Stop at 10:06; Status DC Miscellaneous Information 1 ONCE ONCE .XX ; Start 02/20/17 at 09:30; Stop at 10:01; Status DC Insulin Detemir (Levemir Inj) 5 units Q12H SQ Last administered on 02/22/17 08:22; Start 02/20/17 at 09:30; Status Future Hold Insulin Aspart (NovoLOG INJ) 3 units TIDAC SQ Last administered on 02/22/17 08:00; Start 02/20/17 at 12:00; Status Future Hold Insulin Aspart (NovoLOG SUPPLEMENTAL SCALE) 1 ACHS SLIDING SCALE SQ Last administered on 02/20/17 21:31; Start 02/20/17 at 12:00; Status Future Hold Dextrose (D50w (Vial) Inj) 50 ml UNSCH PRN IV PUSH HYPOGLYCEMIA-SEE COMMENTS Last administered on 02/22/17 12:32; Start 02/20/17 at 09:30 Glucagon (Glucagon Inj) 1 mg UNSCH PRN OTHER HYPOGLYCEMIA-SEE COMMENTS; Start 02/20/17 at 09:30 Sodium Chloride 1,000 ml @ 60 mls/hr [id number] IV Last administered on 12:14; Start 02/20/17 at 09:30; Stop 02/22/17 at 13:47; Status DC Haloperidol Lactate (Haldol Inj) 2 mg Q4H PRN IV agitation; Start 02/20/17 at 09:45 Lorazepam (Ativan Inj) 1 mg Q6H PRN IV PUSH ANXIETY AND/OR AGITATION; Start at 08:00 Sodium Chloride 1,000 ml @ 0 mls/hr Q0M PRN OTHER For Prime & Rinse Back; Start 02/21/17 at 10:55 Heparin Sodium (Porcine) (Heparin Inj) 8,000 units UNSCH PRN IV FLUSH WITH DIALYSIS; Start 02/21/17 at 11:00 Sodium Chloride 1,000 ml @ 200 mls/hr Q5H PRN IV WITH DIALYSIS Last administered on 02/21/17 14:48; Start 02/21/17 at 10:55 Sodium Chloride 1,000 ml @ 0 mls/hr Q0M PRN OTHER WITH DIALYSIS; Start at 10:55 Mannitol (Mannitol Inj) 12.5 gm UNSCH PRN IV WITH DIALYSIS Last administered on 02/21/17 14:48; Start 02/21/17 at 11:00 Albumin Human 100 ml @ 60 mls/hr UNSCH PRN IV WITH DIALYSIS; Start 02/21/17 at 11:00 Sodium Chloride (NS Flush) 5 ml UNSCH PRN IV FLUSH WITH DIALYSIS; Start at 11:00 Heparin Sodium (Porcine) (Heparin Inj) UNSCH PRN .XX WITH DIALYSIS Last administered on 02/21/17 14:47; Start 02/21/17 at 11:00 Gentamicin Sulfate (Gentamicin (Dialysis) Inj) 20 mg UNSCH PRN OTHER WITH DIALYSIS Last administered on 02/21/17 14:48; Start 02/21/17 at 11:00 Ondansetron HCl (Zofran Inj) 4 mg UNSCH PRN IV PUSH WITH DIALYSIS; Start 02/21 at 11:00 Acetaminophen (Tylenol) 650 mg UNSCH PRN PO for headach, pain, temp > 101F; Start 02/21/17 at 11:00 Diphenhydramine HCl (Benadryl) 25 mg UNSCH PRN PO for hives/itching/anaphylaxis ; Start 02/21/17 at 11:00 Nitroglycerin (Nitrostat Sl) 0.4 mg UNSCH PRN SL CHEST PAIN; Start 02/21/17 at 11:00 Clonidine (Catapres) 0.1 mg UNSCH PRN PO for BP > 180/100 X 2 readings; Start 02/21/17 at 11:00 Gelatin (Gelfoam 12 Mm/7 Mm Top) 1 foam UNSCH PRN TOP SEE LABEL COMMENTS; Start 02/21/17 at 11:00 Midazolam HCl (Versed Inj) 5 mg STK-MED ONCE .ROUTE ; Start 02/21/17 at 12:47; Stop 02/21/17 at 12:48; Status DC Flumazenil (Romazicon Inj) 0.5 mg STK-MED ONCE .ROUTE ; Start 02/21/17 at 13:42 ; Stop 02/21/17 at 13:43; Status DC Flumazenil (Romazicon Inj) 0.5 mg STK-MED ONCE .ROUTE ; Start 02/21/17 at 13:42 ; Stop 02/21/17 at 13:43; Status DC Flumazenil (Romazicon Inj) 0.5 mg STAT ONCE IV ; Start 02/21/17 at 14:00; Stop 02/21/17 at 14:01; Status DC Albuterol/ Ipratropium (Duoneb Neb) 1 ampule Q4HR NEB INH Last administered on 02/23/17 03:57; Start 02/22/17 at 16:00 Albuterol/ Ipratropium (Duoneb Neb) 1 ampule Q2HR NEB PRN INH WHEEZING; Start 02/22/17 at 14:00 Dextrose 1,000 ml @ 42 mls/hr [id number] IV Last administered on 02/22/17 18:45 ; Start 02/22/17 at 18:45 Vancomycin HCl 1000 mg/Sodium Chloride 250 ml @ 250 mls/hr ONCE ONCE IV Last administered on 02/23/17 01:38; Start 02/23/17 at 01:30; Stop 02/23/17 at 02 :29; Status DC A/P Problem List: (1) Acute metabolic encephalopathy ICD Code: G93.41 - Metabolic encephalopathy (2) Altered mental status ICD Code: R41.82 - Altered mental status, unspecified Status: Acute (3) DKA (diabetic ketoacidoses) ICD Code: E13.10 - Other specified diabetes mellitus with ketoacidosis without coma Status: Acute (4) Non-STEMI (non-ST elevated myocardial infarction) ICD Code: I21.4 - Non-ST elevation (NSTEMI) myocardial infarction Status: Acute (5) Dehydration with hypernatremia ICD Code: E87.0 - Hyperosmolality and hypernatremia Status: Acute (6) Sepsis ICD Code: A41.9 - Sepsis, unspecified organism Status: Acute (7) UTI (urinary tract infection) ICD Code: N39.0 - Urinary tract infection, site not specified Status: Acute (8) Acute renal failure ICD Code: N17.9 - Acute kidney failure, unspecified Status: Acute (9) Hyperglycemia ICD Code: R73.9 - Hyperglycemia, unspecified Status: Acute (10) Lactic acidemia ICD Code: E87.2 - Acidosis (11) Transaminitis ICD Code: R74.0 - Nonspecific elevation of levels of transaminase and lactic acid dehydrogenase [LDH] (12) Respiratory insufficiency ICD Code: R06.89 - Other abnormalities of breathing Assessment and Plan A/P Acute metabolic encephalopathy -Treat agitation with when necessary Haldol - Encephalopathy most likely secondary to kidney failure and possible sepsis. -continue to monitor. Respiratory insufficiency - Tachypnea most likely secondary to metabolic acidosis and sepsis. - DuoNeb every 6 hours when necessary. Lactic acidemia elevated troponin Hypertension cardiomyopathy -echo with EF 25% - Aspirin on hold due to thrombocytopenia. - Metoprolol 25 mg every 8 hours - Avoid statins due to transaminitis -cardiology following. Transaminitis - Monitor liver enzymes most likely secondary to hypotension/severe dehydration -will monitor Acute kidney injury superimposed on chronic kidney disease Severe dehydration Hyperkalemia - Baseline creatinine 1.8 to 2. Acute worsening secondary to severe dehydration and DKA - Monitor renal function closely. continue Scott catheter. -HD initiated. - Nephrology following. Probable sepsis UTI - Received IV vancomycin earlier today. -Zosyn was dc'ed due to thrombocytopenia. - one bottle of the blood cultures with staph coag. negative. -ID consulted. Anemia thrombocytopenia- now trending down. -hold heparin and aspirin -hematology consult appreciated. -Monitor CBC, CMP DKA-resolved now with hypoglycemic episodes - hold insulin -NG tube in place. 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 -continue D5W till tube feeding started. PROPH: - Bilateral lower extremity SCDs. hold Heparin as noted above. - IV Protonix 40 q24 hours patient is ill looking with multiple comorbidities. previously d/w the daughter who wanted to continue with full-code status. will consult palliative care to assist with goals of care. will keep in ICU for now for close monitoring. d/w the RN. Problem Qualifiers (1) Altered mental status: Qualified Codes: R41.82 - Altered mental status, unspecified (2) DKA (diabetic ketoacidoses): (3) Sepsis: Qualified Codes: A41.9 - Sepsis, unspecified organism (4) UTI (urinary tract infection): (5) Acute renal failure: Qualified Codes: N17.9 - Acute kidney failure, unspecified Orion Braden MD Feb 23, 2017 08:02
[2017-02-23 08:27] LABS: BURR CELLS 1+ (NORMAL); OVALOCYTES 1+ (NORMAL)
[2017-02-23] MEDS: SODIUM CHLORIDE 0.9% FLUSH 10 ML FLUSH IV FLUSH SCH ×4 (08:59→20:08)
[2017-02-23] MEDS: PANTOPRAZOLE SODIUM 40 MG VIAL IV PUSH SCH ×2 (08:59)
[2017-02-23] MEDS: DOCUSATE SODIUM 50 MG/SENNA 8.6 MG TAB PO SCH ×4 (08:59→20:09)
--- NOTE | 2017-02-23 10:07 | PD.CONS ---
History of Present Illness Service Infectious disease Consult Requested By Dr Braden Reason for Consult Evaluate patient with positive blood culture Primary Care Physician Unknown Diagnoses: History of Present Illness Patient seen and examined. Records reviewed. Patient is a 77-year-old male, admitted to the hospital, after he was found down in his apartment. He was apparently last seen about 3 days prior to admission, and he was in his usual self. EMS was called, and patient had very high blood sugar, looked clinically dehydrated, and was tachypneic. His laboratory data showed acute renal failure with a creatinine of 5.3. His WBC was normal, hemoglobin 10.6, and platelet count was 97. Prior creatinine level was between 1.8-2. His AST and ALT are also elevated. CT of the head was negative. Chest x-ray was normal. Renal ultrasound did not show any evidence of hydronephrosis. Urinalysis was unremarkable. His lactic acid was elevated. Patient was started on broad-spectrum antibiotics. His urine output remains low, and the patient started on hemodialysis. Patient has received fluid resuscitation with minimal improvement in his creatinine. 1 out of the 2 blood cultures is now reported as coag-negative staph. Patient also since admission has developed progressive worsening of his thrombocytopenia. He had been on Zosyn, and he received one dose of vancomycin today. Patient also had an ultrasound of the liver which showed evidence of gallstones, and gallbladder wall thickening, but no evidence of pericholecystic fluid. Patient is afebrile. His blood pressure is okay. He is on nasal O2. Infectious disease consultation has been requested to evaluate the patient with positive blood culture. Review of Systems ROS Limitations: Clinical Condition, Altered Mental Status, Poor Historian, Other (history of possible developmental delay) Past Family Social History Allergies: Coded Allergies: No Known Allergies (Verified , 02/19/17) Past Medical History Type 2 diabetes Hypertension Dyslipidemia Possible developmental delay Past Surgical History Cataract extraction Dental extraction Appendectomy Reported Medications I attest that I obtained, updated or reviewed the home and current medications. Reported Meds & Active Scripts Active Reported Levofloxacin 250 Mg Tablet 250 Mg PO DAILY Meloxicam 7.5 Mg Tab 7.5 Mg PO DAILY Hydroxyzine HCl 10 Mg Tab 10 Mg PO TID Lantus Inj (Insulin Glargine) 1,000 Unit/10 Ml Vial 20 Units SQ HS Pravastatin 10 Mg Tab 10 Mg PO DAILY Amlodipine (Amlodipine Besylate) 10 Mg Tab 10 Mg PO DAILY Active Ordered Medications Tylenol prn Albumin Albuterol prn Dulcolax prn Catapres prn Benadryl prn Haldol prn Gentamicin line lock Heparin Lactulose prn Ativan prn MOM Mannitol prn Melatonin Lopressor SL NTG prn Zofran prn Protonix Pericolace prn Senokot Na bicarb prn Vanco IV x 1 dose today Zosyn - D/C today Family History Unable to maintain due to altered mental status, poor historian Social History Per record there is no smoking, no alcohol abuse, no illicit drugs Physical Exam Vital Signs Vital Signs Date Time Temp Pulse Resp B/P (MAP) Pulse Ox O2 Delivery O2 Flow Rate FiO2 02/23/17 08:52 100 Nasal Cannula 2.00 02/23/17 06:00 84 02/23/17 04:00 81 02/23/17 04:00 98.5 81 30 127/74 (91) 100 02/23/17 03:59 100 Nasal Cannula 3.00 02/23/17 02:00 82 02/23/17 00:42 100 Nasal Cannula 4.00 02/23/17 00:00 97.9 79 34 124/75 (91) 100 02/23/17 00:00 79 02/22/17 22:00 78 02/22/17 20:20 100 Nasal Cannula 4.00 02/22/17 20:00 98.2 74 24 148/60 (89) 100 02/22/17 20:00 74 02/22/17 18:00 73 02/22/17 17:00 71 02/22/17 16:00 97.3 71 31 116/71 (86) 100 02/22/17 16:00 71 02/22/17 15:00 68 02/22/17 14:00 68 02/22/17 13:00 67 02/22/17 12:00 97.5 67 33 111/59 (76) 100 02/22/17 12:00 67 02/22/17 11:00 66 Physical Exam GENERAL: Patient is a well-nourished, well-developed male, awake and alert, not in respiratory distress. He does not follow commands consistently SKIN: Cool and moist. No generalized rash, no ecchymoses and no evidence of embolic lesions. HEAD: Atraumatic. Normocephalic. No temporal wasting, or tenderness. EYES: [place] conjunctiva. No petechia or hemorrhage. Pupils equal, round and reactive to light. Extraocular movements full and intact. No scleral icterus. No injection or drainage. EARS, NOSE AND THROAT: Nose without bleeding or purulent nasal discharge. Did not cooperate and Im unable to examine his oropharynx NECK: Trachea midline. Supple and not tender, no meningeal signs CARDIOVASCULAR: Regular rate and rhythm. No murmurs, rubs or gallops heard RESPIRATORY: Clear to auscultation, but decreased at the bases. Breath sounds equal bilaterally. No rales, wheezing or rhonchi ABDOMEN: Soft, nondistended, bowel sounds present and normoactive. He complained of tenderness oneil on R side during palpation, no guarding. No rebound. No organomegaly. EXTREMITIES: No clubbing, cyanosis, or edema.No joint effusion, has good ROM. No calf tenderness. Well perfused and warm. NEUROLOGICAL: Awake and alert. 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 No Babinski PSYCHIATRIC: calm and cooperative. LINE: No evidence of infection Laboratory Laboratory Tests Test 02/22/17 21:09 02/23/17 06:00 Prothrombin Time 28.6 Prothromb Time International Ratio 2.5 Activated Partial Thromboplast Time 46.9 Fibrinogen 91 D-Dimer Quantitative (PE/DVT) 12.14 White Blood Count 10.3 Red Blood Count 3.12 Hemoglobin 9.3 Hematocrit 28.3 Mean Corpuscular Volume 90.7 Mean Corpuscular Hemoglobin 29.9 Mean Corpuscular Hemoglobin Concent 33.0 Red Cell Distribution Width 16.6 Platelet Count 37 Mean Platelet Volume 11.5 Neutrophils (%) (Auto) 84.1 Lymphocytes (%) (Auto) 7.7 Monocytes (%) (Auto) 7.5 Eosinophils (%) (Auto) 0.3 Basophils (%) (Auto) 0.4 Neutrophils # (Auto) 8.6 Lymphocytes # (Auto) 0.8 Monocytes # (Auto) 0.8 Eosinophils # (Auto) 0.0 Basophils # (Auto) 0.0 CBC Comment AUTO DIFF Differential Comment AUTO DIFF CONFIRMED Platelet Estimate LOW Platelet Morphology Comment NORMAL Ovalocytes 1+ [place] Cells 1+ Blood Urea Nitrogen 92 Creatinine 5.93 Random Glucose 180 Calcium Level 8.3 Sodium Level 144 Potassium Level 4.8 Chloride Level 111 Carbon Dioxide Level 17.0 Anion Gap 16 Estimat Glomerular Filtration Rate 11 Date/Time Source Procedure Growth Status 02/19/17 12:10 Blood Peripheral Aerobic Blood Culture - Preliminary Staph Sp Coagulase Negative Resulted 02/19/17 12:10 Blood Peripheral Anaerobic Blood Culture - Preliminary NO GROWTH IN 3 DAYS Resulted 02/19/17 12:10 Urine Catheterized Urine Urine Culture - Final NO GROWTH IN 48 HOURS. Complete Result Diagram: 02/23/17 0600 02/23/17 0600 Imaging RADIOLOGY STUDIES/FILMS REVIEWED Chest X-Ray 02/21/17 0600 Signed Impressions: Service Date/Time: Tuesday, February 21, 2017 04:36 - CONCLUSION: Bibasilar areas of suspected consolidation/atelectasis and effusion being worse on the right. The findings have worsened since the prior exam. Flakito Chan MD Liver Ultrasound 02/20/17 0000 Signed Impressions: Service Date/Time: Monday, February 20, 2017 10:51 - CONCLUSION: Gallstones and gallbladder wall thickening. There is no intrahepatic biliary duct dilatation. Rylan Wang MD FACR Head CT 02/19/17 1205 Signed Impressions: Service Date/Time: February 13:02 - CONCLUSION: 1. Cortical atrophy. 2. No acute abnormality identified. The examination is stable compared to prior dated 04/17/12. Sharath Wang MD Renal Ultrasound 02/19/17 0000 Signed Impressions: Service Date/Time: February 17:19 - CONCLUSION: No evidence of hydronephrosis. Indwelling Scott catheter with collapsed bladder in thickened bladder wall. Cal Tomlinson MD Assessment and Plan Assessment and Plan IMPRESSION One (+) BC with Coag Neg Staph C/W contaminant Possible sepsis on admission, source? - CXR clear, UA ok - ?biliary tree, has elevated LFT, R side tenderness, GB wall thickening and gallstones Acute renal failure, on CKD Baseline ?mental delay Thrombocytopenia, worsening - ?Abx - DIC screen (+) Bilateral infiltrates likely fluid overload RECOMMENDATION Levaquin and Flagyll for biliary coverage HIDA scan Follow LFT Follow platelet count - heme following Monitor progress Follow C/S I will determine course of Abx once work-up is completed I will follow along with you Thank you for this consultation Discussed Condition With Rodrigo/W Sugar Martinez MD Feb 23, 2017 10:07
--- NOTE | 2017-02-23 10:23 | PD.CONS ---
Consult Service Palliative Care Consult Requested By Dr. Braden . Primary Care Physician Unknown . Reason for Consultation a. To assist with evaluation and management of symptoms including: Agitation, restlessness, encephalopathy b. To assist medical decision maker(s) with: better understanding of current medical conditions; weighing benefits/burdens of medical treatment options; making medical treatment decisions. . HPI History of Present Illness This 77-year-old male, with a past history of insulin-dependent diabetes, chronic kidney disease, hypertension, and episodes of noncompliance, presented to the emergency department on 02/19/17 after being found down on the floor at home (unknown time frame). He had significant altered mental status, confusion , and EMS reported a glucose on scene of 530. The patient was transported to the emergency department, where findings included: * GCS 13, confusion, lethargy * Temp 97 7, pulse 96, respirations 18, blood pressure 145/76, oxygen saturation 97% on 2 L * White count 8.9, hemoglobin 10.6 * Sodium 147, BUN 93, creatinine 5.30, albumin 2.8, potassium 5.5 * Lactic acid 4.3 * Troponin 1.88 * CT brain scan revealed atrophy but no acute findings * Chest x-ray was reported as no acute disease . Cultures were obtained, antibiotics were initiated, fluids were started, and the patient was admitted to intensive care. The following day an ultrasound revealed gallstones, but no biliary dilatation. The patient became restless and agitated at times, and was placed in 4. restraints. On 02/21/17, a repeat chest x-ray revealed some bibasilar consolidation. His creatinine remained in the 5 range, it was felt that he may have suffered ATN due to dehydration and sepsis, and hemodialysis was initiated via a Vas-Cath. His platelet count was diminishing, and it has continued to gradually decrease, today 37,000. Hem-onc felt like this was likely due to his sepsis. On 02/22/17, the thrombocytopenia continued to worsen, and an echocardiogram revealed an ejection fraction of 25%. On the day of this consultation, 02/23/17 , his white count is 10.3, hemoglobin 9.3, and platelets 37,000. The patient has remained quite encephalopathic and lethargic, and he is agitated and restless when he is awake. Palliative Care was consulted to assist with symptom management, and to enter into discussions with family regarding the patient's current illnesses, the prognosis, and the benefits and burdens of the various treatment options. . Function/Cognitive Trajectory According to the patient's daughter, who last saw him about 2 or 3 weeks ago, he was able to function independently at that time, ambulatory, no confusion or memory problems. . Review of Systems ROS Limitations: Altered Mental Status Constitutional: COMPLAINS OF: Generalized weakness (was on the floor at home prior to admission) Endocrine: DENIES: Polyuria Eyes: DENIES: Eye inflammation Ears, nose, mouth, throat: DENIES: Epistaxis Respiratory: COMPLAINS OF: Shortness of breath (has required supplemental oxygen), DENIES: Cough Cardiovascular: DENIES: Lower Extremity Edema Gastrointestinal: DENIES: Bloody stools, Constipation, Diarrhea, Vomiting, Vomiting blood Genitourinary: DENIES: Hematuria Musculoskeletal: DENIES: Joint Swelling Integumentary: DENIES: Rash Hematologic/Lymphatics: DENIES: Bruising Immunologic/Allergic: DENIES: Urticaria Neurologic: DENIES: Seizures Psychiatric: COMPLAINS OF: Confusion, Agitation Past Family Social History Coded Allergies: No Known Allergies (Verified , 02/19/17) Past Medical History * Insulin-dependent diabetes * Chronic kidney disease, creatinine 2.2 in 2012 * Chronic anemia * History of noncompliance * Malnutrition * History of DKA * Hypertension * Hyperlipidemia * Degenerative joint disease . Past Surgical History * Appendectomy at age 4 * Cataracts * Oral surgery * Vas-Cath placement 02/21/17 . Reported Medications Reported Meds & Active Scripts Active Reported Levofloxacin 250 Mg Tablet 250 Mg PO DAILY Meloxicam 7.5 Mg Tab 7.5 Mg PO DAILY Hydroxyzine HCl 10 Mg Tab 10 Mg PO TID Lantus Inj (Insulin Glargine) 1,000 Unit/10 Ml Vial 20 Units SQ HS Pravastatin 10 Mg Tab 10 Mg PO DAILY Amlodipine (Amlodipine Besylate) 10 Mg Tab 10 Mg PO DAILY . Current Medications Medications (Trade) Dose Ordered Sig/Fede Route Start Time Stop Time Status Last Admin (Sodium Bicarbonate 8.4% Inj) 100 meq UNSCH PRN IV PUSH 02/19/17 13:45 (Sodium Bicarbonate 8.4% Inj) 50 meq UNSCH PRN IV PUSH 02/19/17 13:45 Sodium Phosphate 15 mmol/Sodium Chloride 105 ml @ 25 mls/hr UNSCH PRN IV 02/19/17 13:45 (NS Flush) 2 ml UNSCH PRN IV FLUSH 02/19/17 14:15 (NS Flush) 2 ml BID IV FLUSH 02/19/17 21:00 02/23/17 08:59 (Protonix Inj) 40 mg DAILY IV PUSH 02/20/17 09:00 02/23/17 08:59 (Heparin Inj) 5,000 units Q12H SQ 02/19/17 17:00 Future Hold 02/21/17 16:36 Miscellaneous Information 1 Q361D XX 02/19/17 14:15 (Chlorhexidine 2% Cloth) 3 pack Taper DAILY@04 TOP 02/20/17 04:00 02/16/18 03:59 02/23/17 04:00 (Chlorhexidine 2% Cloth) 3 pack UNSCH PRN TOP 02/19/17 14:15 (Princess-Colace) 1 tab BID PO 02/19/17 21:00 02/22/17 08:22 (Milk Of Magnesia Liq) 30 ml Q12H PRN PO 02/19/17 14:15 (Senokot) 17.2 mg Q12H PRN PO 02/19/17 14:15 (Dulcolax Supp) 10 mg DAILY PRN RECTAL 02/19/17 14:15 (Lactulose Liq) 30 ml DAILY PRN PO 02/19/17 14:15 (Aspirin Chew) 81 mg DAILY CHEW 02/19/17 15:15 Future Hold 02/21/17 07:46 (Lopressor) 25 mg Q8HR PO 02/19/17 16:30 02/23/17 06:00 (Melatonin) 5 mg HS PRN PO 02/19/17 22:15 02/20/17 21:45 (Levemir Inj) 5 units Q12H SQ 02/20/17 09:30 Future Hold 02/22/17 08:22 (NovoLOG INJ) 3 units TIDAC SQ 02/20/17 12:00 Future Hold 02/22/17 08:00 (NovoLOG SUPPLEMENTAL SCALE) 1 ACHS SLIDING SCALE SQ 02/20/17 12:00 Future Hold 02/20/17 21:31 (D50w (Vial) Inj) 50 ml UNSCH PRN IV PUSH 02/20/17 09:30 02/22/17 12:32 (Glucagon Inj) 1 mg UNSCH PRN OTHER 02/20/17 09:30 (Haldol Inj) 2 mg Q4H PRN IV 02/20/17 09:45 (Ativan Inj) 1 mg Q6H PRN IV PUSH 02/21/17 08:00 Sodium Chloride 1,000 ml @ 0 mls/hr Q0M PRN OTHER 02/21/17 10:55 (Heparin Inj) 8,000 units UNSCH PRN IV FLUSH 02/21/17 11:00 Sodium Chloride 1,000 ml @ 200 mls/hr Q5H PRN IV 02/21/17 10:55 02/21/17 14:48 Sodium Chloride 1,000 ml @ 0 mls/hr Q0M PRN OTHER 02/21/17 10:55 (Mannitol Inj) 12.5 gm UNSCH PRN IV 02/21/17 11:00 02/21/17 14:48 Albumin Human 100 ml @ 60 mls/hr UNSCH PRN IV 02/21/17 11:00 (NS Flush) 5 ml UNSCH PRN IV FLUSH 02/21/17 11:00 (Heparin Inj) UNSCH PRN .XX 02/21/17 11:00 02/21/17 14:47 (Gentamicin (Dialysis) Inj) 20 mg UNSCH PRN OTHER 02/21/17 11:00 02/21/17 14:48 (Zofran Inj) 4 mg UNSCH PRN IV PUSH 02/21/17 11:00 (Tylenol) 650 mg UNSCH PRN PO 02/21/17 11:00 (Benadryl) 25 mg UNSCH PRN PO 02/21/17 11:00 (Nitrostat Sl) 0.4 mg UNSCH PRN SL 02/21/17 11:00 (Catapres) 0.1 mg UNSCH PRN PO 02/21/17 11:00 (Gelfoam 12 Mm/7 Mm Top) 1 foam UNSCH PRN TOP 02/21/17 11:00 (Duoneb Neb) 1 ampule Q4HR NEB INH 02/22/17 16:00 02/23/17 08:51 (Duoneb Neb) 1 ampule Q2HR NEB PRN INH 02/22/17 14:00 Dextrose 1,000 ml @ 42 mls/hr [id number] IV 02/22/17 18:45 02/22/17 18:45 Family History The patient's mother had diabetes and of an SD "in her 60s or 70s." The patient's father's history is unknown. There are no other known diabetics in the family. . Substance Use Tobacco: None Alcohol: None Prescription med abuse: None Illicits: None . Psychosocial History The patient was born, raised, and his lived here in [place] his entire life. Most recently, he has been living with a girlfriend. 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 He was once, years ago. He had 4 children, 3 sons and a daughter. He is estranged from the 3 sons. . Spiritual/Cultural Factors The patient's daughter says that she does not ever know of him to be spiritual or synagogue, but she would like the chaplains to visit the patient while he is here in the hospital. . . Living Will: Never completed Health Care Surrogate: Never completed Durable Power of Quill Layer: Never completed Family/friends goals: The patient's daughter wants aggressive care, including mechanical ventilation if the patient has cardiac or respiratory failure. She "wants to give him a chance." Ethical and Legal Issues There are no ethical issues that would impact his care were decision-making at this time. The patient lacks capacity for decision-making, and it is uncertain whether he will regain that capacity. He is estranged from his 3 sons and they have not wanted to participate in decision-making or discussions. His daughter is thus the proxy decision-maker. . Physical Exam Vital Signs Date Time Temp Pulse Resp B/P (MAP) Pulse Ox O2 Delivery O2 Flow Rate FiO2 02/23/17 08:52 100 Nasal Cannula 2.00 02/23/17 06:00 84 02/23/17 04:00 81 02/23/17 04:00 98.5 81 30 127/74 (91) 100 02/23/17 03:59 100 Nasal Cannula 3.00 02/23/17 02:00 82 02/23/17 00:42 100 Nasal Cannula 4.00 02/23/17 00:00 97.9 79 34 124/75 (91) 100 02/23/17 00:00 79 02/22/17 22:00 78 02/22/17 20:20 100 Nasal Cannula 4.00 02/22/17 20:00 98.2 74 24 148/60 (89) 100 02/22/17 20:00 74 02/22/17 18:00 73 02/22/17 17:00 71 02/22/17 16:00 97.3 71 31 116/71 (86) 100 02/22/17 16:00 71 02/22/17 15:00 68 02/22/17 14:00 68 02/22/17 13:00 67 02/22/17 12:00 97.5 67 33 111/59 (76) 100 02/22/17 12:00 67 02/22/17 11:00 66 02/22/17 10:00 64 Exam CONSTITUTIONAL/GENERAL: This is an elderly, weak, confused patient, in no apparent distress. TUBES/LINES/DRAINS: Vas-Cath right neck, left subclavian line, supplemental oxygen, 4-point restraints, SCDs SKIN: No jaundice, rashes, or lesions. Ecchymoses on upper extremities. No wounds seen anteriorly. Skin temperature appropriate. Not diaphoretic. HEAD: Atraumatic. Normocephalic. EYES: Pupils equal and round and reactive. Extraocular motions intact. No scleral icterus. No injection or drainage. Fundi not examined. ENT: Hearing seems to be slightly diminished. Nose without bleeding or purulent drainage. NECK: Trachea midline. Supple, nontender. No palpable thyroid enlargement or nodularity. CARDIOVASCULAR: Regular rate and rhythm without murmurs, gallops, or rubs. No JVD. Peripheral pulses symmetric. RESPIRATORY/CHEST: Symmetric, unlabored respirations. A few scattered rhonchi are present, breath sounds are diminished. GASTROINTESTINAL: Abdomen soft, non-tender, nondistended. No hepato-splenomegaly , or palpable masses. No guarding. Bowel sounds present. GENITOURINARY: Without palpable bladder distension. Scott catheter in place. MUSCULOSKELETAL: Extremities without clubbing, cyanosis, or edema. No joint tenderness or effusion noted. No calf tenderness. No mottling or clubbing. LYMPHATICS: No palpable cervical or supraclavicular adenopathy. NEUROLOGICAL: Lethargic, awakens and mumbles but does not answer questions. PSYCHIATRIC: Has been agitated and restless, pulling at lines and tubes . Diagnostic Tests Laboratory Laboratory Tests Test 02/20/17 11:30 02/21/17 04:55 02/21/17 15:40 02/22/17 04:00 Blood Urea Nitrogen 84 MG/DL (7-18) 95 MG/DL (7-18) 77 MG/DL (7-18) Creatinine 4.82 MG/DL (0.60-1.30) 5.63 MG/DL (0.60-1.30) 4.95 MG/DL (0.60-1.30) Random Glucose 199 MG/DL (74-106) 222 MG/DL (74-106) 107 MG/DL (74-106) Calcium Level 8.3 MG/DL (8.5-10.1) 7.9 MG/DL (8.5-10.1) 8.2 MG/DL (8.5-10.1) Phosphorus Level 3.3 MG/DL (2.5-4.9) Magnesium Level 2.0 MG/DL (1.5-2.5) 2.2 MG/DL (1.5-2.5) Sodium Level 151 MEQ/L (136-145) 151 MEQ/L (136-145) 149 MEQ/L (136-145) Potassium Level 4.5 MEQ/L (3.5-5.1) 4.9 MEQ/L (3.5-5.1) 4.3 MEQ/L (3.5-5.1) Chloride Level 119 MEQ/L (98-107) 118 MEQ/L (98-107) 112 MEQ/L (98-107) Carbon Dioxide Level 18.4 MEQ/L (21.0-32.0) 16.1 MEQ/L (21.0-32.0) 18.5 MEQ/L (21.0-32.0) Anion Gap 14 MEQ/L (5-15) 17 MEQ/L (5-15) 19 MEQ/L (5-15) Estimat Glomerular Filtration Rate 14 ML/MIN (>89) 12 ML/MIN (>89) 14 ML/MIN (>89) B-Hydroxybutyrate 1.80 MMOL/L (0.00-0.39) White Blood Count 11.3 TH/MM3 (4.0-11.0) 9.8 TH/MM3 (4.0-11.0) Red Blood Count 3.54 MIL/MM3 (4.50-5.90) 3.34 MIL/MM3 (4.50-5.90) Hemoglobin 10.4 GM/DL (13.0-17.0) 10.0 GM/DL (13.0-17.0) Hematocrit 32.8 % (39.0-51.0) 30.4 % (39.0-51.0) Mean Corpuscular Volume 92.7 FL (80.0-100.0) 90.9 FL (80.0-100.0) Mean Corpuscular Hemoglobin 29.5 PG (27.0-34.0) 29.9 PG (27.0-34.0) Mean Corpuscular Hemoglobin Concent 31.8 % (32.0-36.0) 32.9 % (32.0-36.0) Red Cell Distribution Width 16.9 % (11.6-17.2) 16.8 % (11.6-17.2) Platelet Count 58 TH/MM3 (150-450) 38 TH/MM3 (150-450) Mean Platelet Volume 11.1 FL (7.0-11.0) 12.0 FL (7.0-11.0) Neutrophils (%) (Auto) 84.5 % (16.0-70.0) 83.3 % (16.0-70.0) Lymphocytes (%) (Auto) 7.9 % (9.0-44.0) 9.6 % (9.0-44.0) Monocytes (%) (Auto) 7.4 % (0.0-8.0) 6.4 % (0.0-8.0) Eosinophils (%) (Auto) 0.0 % (0.0-4.0) 0.5 % (0.0-4.0) Basophils (%) (Auto) 0.2 % (0.0-2.0) 0.2 % (0.0-2.0) Neutrophils # (Auto) 9.5 TH/MM3 (1.8-7.7) 8.1 TH/MM3 (1.8-7.7) Lymphocytes # (Auto) 0.9 TH/MM3 (1.0-4.8) 0.9 TH/MM3 (1.0-4.8) Monocytes # (Auto) 0.8 TH/MM3 (0-0.9) 0.6 TH/MM3 (0-0.9) Eosinophils # (Auto) 0.0 TH/MM3 (0-0.4) 0.0 TH/MM3 (0-0.4) Basophils # (Auto) 0.0 TH/MM3 (0-0.2) 0.0 TH/MM3 (0-0.2) CBC Comment AUTO DIFF AUTO DIFF Differential Total Cells Counted 100 Neutrophils % (Manual) 69 % (16-70) Band Neutrophils % 17 % (0-6) Lymphocytes % 8 % (9-44) Monocytes % 6 % (0-8) Neutrophils # (Manual) 9.7 TH/MM3 (1.8-7.7) Differential Comment FINAL DIFF MANUAL AUTO DIFF CONFIRMED Platelet Estimate LOW (NORMAL) LOW (NORMAL) Platelet Morphology Comment NORMAL (NORMAL) ENLARGED (NORMAL) Ovalocytes 1+ (NORMAL) 1+ (NORMAL) Acanthocytes 1+ (NORMAL) Total Protein 6.3 GM/DL (6.4-8.2) Albumin 2.3 GM/DL (3.4-5.0) Alkaline Phosphatase 50 U/L (45-117) Aspartate Amino Transf (AST/SGOT) 167 U/L (15-37) Alanine Aminotransferase (ALT/SGPT) 356 U/L (12-78) Total Bilirubin 1.1 MG/DL (0.2-1.0) Test 02/22/17 21:09 02/23/17 06:00 Prothrombin Time 28.6 SEC (9.8-11.6) Prothromb Time International Ratio 2.5 RATIO Activated Partial Thromboplast Time 46.9 SEC (24.3-30.1) Fibrinogen 91 mg/dL (227-377) D-Dimer Quantitative (PE/DVT) 12.14 MG/L FEU (0.00-0.50) White Blood Count 10.3 TH/MM3 (4.0-11.0) Red Blood Count 3.12 MIL/MM3 (4.50-5.90) Hemoglobin 9.3 GM/DL (13.0-17.0) Hematocrit 28.3 % (39.0-51.0) Mean Corpuscular Volume 90.7 FL (80.0-100.0) Mean Corpuscular Hemoglobin 29.9 PG (27.0-34.0) Mean Corpuscular Hemoglobin Concent 33.0 % (32.0-36.0) Red Cell Distribution Width 16.6 % (11.6-17.2) Platelet Count 37 TH/MM3 (150-450) Mean Platelet Volume 11.5 FL (7.0-11.0) Neutrophils (%) (Auto) 84.1 % (16.0-70.0) Lymphocytes (%) (Auto) 7.7 % (9.0-44.0) Monocytes (%) (Auto) 7.5 % (0.0-8.0) Eosinophils (%) (Auto) 0.3 % (0.0-4.0) Basophils (%) (Auto) 0.4 % (0.0-2.0) Neutrophils # (Auto) 8.6 TH/MM3 (1.8-7.7) Lymphocytes # (Auto) 0.8 TH/MM3 (1.0-4.8) Monocytes # (Auto) 0.8 TH/MM3 (0-0.9) Eosinophils # (Auto) 0.0 TH/MM3 (0-0.4) Basophils # (Auto) 0.0 TH/MM3 (0-0.2) CBC Comment AUTO DIFF Differential Comment AUTO DIFF CONFIRMED Platelet Estimate LOW (NORMAL) Platelet Morphology Comment NORMAL (NORMAL) Ovalocytes 1+ (NORMAL) Dunbar Cells 1+ (NORMAL) Blood Urea Nitrogen 92 MG/DL (7-18) Creatinine 5.93 MG/DL (0.60-1.30) Random Glucose 180 MG/DL (74-106) Calcium Level 8.3 MG/DL (8.5-10.1) Sodium Level 144 MEQ/L (136-145) Potassium Level 4.8 MEQ/L (3.5-5.1) Chloride Level 111 MEQ/L (98-107) Carbon Dioxide Level 17.0 MEQ/L (21.0-32.0) Anion Gap 16 MEQ/L (5-15) Estimat Glomerular Filtration Rate 11 ML/MIN (>89) Result Diagram: 02/23/17 0600 02/23/17 0600 Microbiology Microbiology Date/Time Source Procedure Growth Status 02/19/17 12:10 Blood Peripheral Aerobic Blood Culture - Preliminary Staph Sp Coagulase Negative Resulted 02/19/17 12:10 Blood Peripheral Anaerobic Blood Culture - Preliminary NO GROWTH IN 3 DAYS Resulted 02/19/17 12:10 Urine Catheterized Urine Urine Culture - Final NO GROWTH IN 48 HOURS. Complete Imaging Last Impressions Chest X-Ray 02/21/17 0600 Signed Impressions: Service Date/Time: Tuesday, February 21, 2017 04:36 - CONCLUSION: Bibasilar areas of suspected consolidation/atelectasis and effusion being worse on the right. The findings have worsened since the prior exam. Flakito Chan MD Liver Ultrasound 02/20/17 0000 Signed Impressions: Service Date/Time: Monday, February 20, 2017 10:51 - CONCLUSION: Gallstones and gallbladder wall thickening. There is no intrahepatic biliary duct dilatation. Rylan Wang MD FACR Head CT 02/19/17 1205 Signed Impressions: Service Date/Time: February 13:02 - CONCLUSION: 1. Cortical atrophy. 2. No acute abnormality identified. The examination is stable compared to prior dated 04/17/12. Sharath Wang MD Renal Ultrasound 02/19/17 0000 Signed Impressions: Service Date/Time: February 17:19 - CONCLUSION: No evidence of hydronephrosis. Indwelling Scott catheter with collapsed bladder in thickened bladder wall. Cal Tomlinson MD Procedures Left subclavian line 02/19/17 Vas-Cath placement 02/21/17 . Patient/Family Conference Present at Family Conference: Daughter Jakub Mcqueen NURSE COORDINATOR . Family Conference Time (mins): 55 Family Conference Location: Consult Room Issues Discussed: * Palliative care role, purpose, approach * Additional medical, psychosocial, and spiritual history * Patients general health, functional status, and cognitive changes in the months leading up to the current hospitalization * Patient/family understanding of the current medical problems * Patient/family understanding of prognosis * Patients goals of care as best understood from advance directives and/or conversations and/or values * Current medical treatment options and benefits/burdens of those options * Likely scenarios comparing ongoing aggressive care with a transition to comfort measures only * Questions answered to the best of my ability * Palliative care contact information provided . Assessment and Plan Disease Oriented Problem List: (1) encephalopathy, likely due to multiple medical issues, sepsis, renal failure (2) acute renal failure, history of chronic kidney disease; possible ATN (3) sepsis, negative culture so far (4) pneumonia on x-ray (5) uncontrolled diabetes (6) thrombocytopenia (7) cardiomyopathy, EF 25% (8) chronic kidney disease, creatinine 2.2 in 2012 (9) anemia (10) history of noncompliance (11) insulin-dependent diabetes (12) malnutrition, albumin 2.8 (13) history of DKA (14) hypertension (15) hyperlipidemia (16) DJD Symptom Scale: (1) agitation 0-10 Scale: Unable to quantify (2) encephalopathy 0-10 Scale: Unable to quantify Pertinent Non-Medical Issues Psychosocial: , 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 One daughter and 3 sons, estranged from the 3 sons. Spiritual: Not spiritual synagogue but daughter does want artificial leather calender operator visits for him. Legal: The patient lacks capacity for decision-making, and it is uncertain whether he will regain that capacity. He has 4 children, but is estranged from his 3 sons, and they have thus far been unwilling to speak with us or participate in decision-making. Therefore, the patient's daughter Jakub Crawford is his proxy decision-maker. We have made it clear that we are available to speak with any of his sons if they call. Ethical issues impacting care: . Important Contacts Daughter/HCP: Jakub Crawford [phone] Granddaughter: Renae Rocha [phone] . Prognosis Overall, the patient's prognosis is poor. He now has multisystem organ failure or dysfunction, including renal, neuro, cardiac, pulmonary, hematologic, and he is quite lethargic/weak/encephalopathic. . Code Status: Full Code Plan * FULL CODE - daughter "wants to give him a chance" * DECISION-MAKING: The patient lacks capacity for decision-making, and it is uncertain whether he will regain that capacity. He has 4 children, but is estranged from his 3 sons, and they have thus far been unwilling to speak with us or participate in decision-making. Therefore, the patient's daughter Jakub Crawford is his proxy decision-maker. We have made it clear that we are available to speak with any of his sons if they call. * GOALS: The patient's daughter wants aggressive care, including mechanical ventilation if the patient has cardiac or respiratory failure. She "wants to give him a chance." She does understand that, with his multisystem involvement , he will be rendered quite weak and most likely dependent 24/7 for care. * SYMPTOMS: His encephalopathy is moderately profound; although he has PRN Haldol ordered, he has not received any, and I believe it would be advantageous to keep him off of any medications that could be sedating so we can see if his encephalopathy will clear. He has no obvious pain or dyspnea at this time. * Incident Response Analyst notified to visit patient * Palliative Care will continue to follow the patient during this hospitalization. . Time Spent Total Floor Time (mins): 78 Face to Face Time (mins): 22 >50% Counseling/Coord of Care: Yes Thank you for the opportunity to participate in the care of Mr. Crawford. Attestation To help prompt me to consider important information that might be impacting today's encounter and assessment, information from prior notes written by myself or my colleagues may have been "brought forward" into today's note. My signature on this note, however, is an attestation that I personally performed the exam, history, and/or decision-making noted today, and, unless otherwise indicated, the interactions with patient, family, and staff as well as the review of records all occurred today. I also attest that the listed assessment and stated plan reflect my best clinical judgment today based on the combination of historical information, prior notes, and today's exam/ interactions. When time spent is documented, it refers only to time spent today by the signer, or if indicated, combined time spent today by collaborating physician/nurse practitioner. Shaneka Sandy MD Feb 23, 2017 10:23
--- NOTE | 2017-02-23 11:18 | HHI.NPPN ---
Subjective General Problems: Mebatolic Acidosis Renal Failure: Chronic, Acute Interval History He is awake, restrained and unable to answer questions. Seen during dialysis. He has become oligoanuric. (eGly Dill) Review of Systems General General Remarks unable to evaluate (Gely Dill) Objective Data Data Vital Signs Date Time Temp Pulse Resp B/P (MAP) Pulse Ox O2 Delivery O2 Flow Rate FiO2 02/23/17 08:52 100 Nasal Cannula 2.00 02/23/17 06:00 84 02/23/17 04:00 81 02/23/17 04:00 98.5 81 30 127/74 (91) 100 02/23/17 03:59 100 Nasal Cannula 3.00 02/23/17 02:00 82 02/23/17 00:42 100 Nasal Cannula 4.00 02/23/17 00:00 97.9 79 34 124/75 (91) 100 02/23/17 00:00 79 02/22/17 22:00 78 02/22/17 20:20 100 Nasal Cannula 4.00 02/22/17 20:00 98.2 74 24 148/60 (89) 100 02/22/17 20:00 74 02/22/17 18:00 73 02/22/17 17:00 71 02/22/17 16:00 97.3 71 31 116/71 (86) 100 02/22/17 16:00 71 02/22/17 15:00 68 02/22/17 14:00 68 02/22/17 13:00 67 02/22/17 12:00 97.5 67 33 111/59 (76) 100 02/22/17 12:00 67 (Gely Dill) -: 02/23/17 0600 02/23/17 0600 Imaging Last 72 hours Impressions Chest X-Ray 02/21/17 0600 Signed Impressions: Service Date/Time: Tuesday, February 21, 2017 04:36 - CONCLUSION: Bibasilar areas of suspected consolidation/atelectasis and effusion being worse on the right. The findings have worsened since the prior exam. Flakito Chan MD Chest X-Ray 02/21/17 0000 Signed Impressions: Service Date/Time: Saturday, February 21, 2017 14:05 - CONCLUSION: 1. Uncomplicated line placement. No evidence of pneumothorax. Gary Diaz MD Tubes & Lines: Vas-Cath, Scott Drip Comment D5W (Gely Dill VETERINARIAN EPIDEMIOLOGIST) Physical Exam General Appearance: No Acute Distress, Comfortable, Malnourished Appearance Remarks Disheveled, mumbles to questions (Gely Dill VETERINARIAN EPIDEMIOLOGIST) Eyes Eye Exam: Pupils Equal (Gely Dill BNick VETERINARIAN EPIDEMIOLOGIST) Throat Throat Exam: Oral Mucosa [place] & Moist (Gely Dill VETERINARIAN EPIDEMIOLOGIST) Pulmonary Resp Exam: Clear Bilaterally, Breath Sounds Equal (Gely Dill B. VETERINARIAN EPIDEMIOLOGIST) Cardiology CV Exam: Regular, Normal Sinus Rhythm (Gely Dill VETERINARIAN EPIDEMIOLOGIST) Gastrointestinal/Abdomen GI Exam: Soft, Non-Tender, Bowel Sounds Present (Gely Dill B. VETERINARIAN EPIDEMIOLOGIST) Musculoskeletal MS Exam: Joints Intact, Normal Tone, Unable to Ambulate (Gely Dill B. VETERINARIAN EPIDEMIOLOGIST) Integumentary Skin Exam: Clear, Warm, Dry, Intact (Gely Dill. VETERINARIAN EPIDEMIOLOGIST) Extremeties Extremities Exam: No Edema, Pedal Pulses Palpable (Gely Dill B. VETERINARIAN EPIDEMIOLOGIST) Neurologic Neuro Exam: Awake, Moving All Extremities, Obtunded Neuro Remarks incomprehensible speech (Gely Dill) Assessment/Plan Assessment Summary: HERVE/Acute Renal Failure, Diabetes Mellitus Electrolyte Assessment: Hypernatremia, Metabolic Acidosis Problem List: (1) Acute renal failure ICD Codes: N17.9 - Acute kidney failure, unspecified Status: Acute Plan: This patient has underlying renal impairment, creatinine 1.8-2 at baseline He has 1.2 g proteinuria, which 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 HERVE likely due to dehydration, sepsis, DKA, and now has apparently progressed to ATN Vascath placed and HD started 02/21 Seen during HD today on a 2K, 300 BFR, goal 3L Continue HD support MWF and as needed Adjust UF as needed for fluid balance Change IVF to D10 @ 20 given NPO status Palliative care consultation may be appropriate given living situation (2) DKA (diabetic ketoacidoses) ICD Codes: E13.10 - Other specified diabetes mellitus with ketoacidosis without coma Status: Acute Plan: Having episodes of hypoglycemia continue to adjust insulin with primary team. Start D10 (3) Dehydration with hypernatremia ICD Codes: E87.0 - Hyperosmolality and hypernatremia Status: Acute Plan: Improving Needs free water intake Has NG tube in place (4) Sepsis ICD Codes: A41.9 - Sepsis, unspecified organism Status: Acute Plan: Elevated lactic acid Given vancomycin, now on zosyn. 1/2 blood cultures with coag neg staph. (5) Elevated troponin ICD Codes: R74.8 - Abnormal levels of other serum enzymes Plan: cardiology has evaluated suspect demand ischemia as etiology of elevated troponin levels 2D echo shows EF 25% (Gely Dill) Plan patient was seen and examined during dialysis. Agree with above assessment and plan. Prognosis is guarded. (Mc Quintanilla MD) Problem Qualifiers (1) Acute renal failure: Qualified Codes: N17.9 - Acute kidney failure, unspecified (2) DKA (diabetic ketoacidoses): (3) Sepsis: Qualified Codes: A41.9 - Sepsis, unspecified organism Gely Dill Feb 23, 2017 11:18 Mc Quintanilla MD Feb 23, 2017 11:20
--- NOTE | 2017-02-23 11:18 | HHI.NPPN ---
Subjective General Problems: Mebatolic Acidosis Renal Failure: Chronic, Acute Interval History He is awake, restrained and unable to answer questions. Seen during dialysis. He has become oligoanuric. (Gely Dill) Review of Systems General General Remarks unable to evaluate (Gely Dill) Objective Data Data Vital Signs Date Time Temp Pulse Resp B/P (MAP) Pulse Ox O2 Delivery O2 Flow Rate FiO2 02/23/17 08:52 100 Nasal Cannula 2.00 02/23/17 06:00 84 02/23/17 04:00 81 02/23/17 04:00 98.5 81 30 127/74 (91) 100 02/23/17 03:59 100 Nasal Cannula 3.00 02/23/17 02:00 82 02/23/17 00:42 100 Nasal Cannula 4.00 02/23/17 00:00 97.9 79 34 124/75 (91) 100 02/23/17 00:00 79 02/22/17 22:00 78 02/22/17 20:20 100 Nasal Cannula 4.00 02/22/17 20:00 98.2 74 24 148/60 (89) 100 02/22/17 20:00 74 02/22/17 18:00 73 02/22/17 17:00 71 02/22/17 16:00 97.3 71 31 116/71 (86) 100 02/22/17 16:00 71 02/22/17 15:00 68 02/22/17 14:00 68 02/22/17 13:00 67 02/22/17 12:00 97.5 67 33 111/59 (76) 100 02/22/17 12:00 67 (Gely Dill) -: 02/23/17 0600 02/23/17 0600 Imaging Last 72 hours Impressions Chest X-Ray 02/21/17 0600 Signed Impressions: Service Date/Time: Tuesday, February 21, 2017 04:36 - CONCLUSION: Bibasilar areas of suspected consolidation/atelectasis and effusion being worse on the right. The findings have worsened since the prior exam. Flakito Chan MD Chest X-Ray 02/21/17 0000 Signed Impressions: Service Date/Time: Saturday, February 21, 2017 14:05 - CONCLUSION: 1. Uncomplicated line placement. No evidence of pneumothorax. Gary Diaz MD Tubes & Lines: Vas-Cath, Scott Drip Comment D5W (Gely Dill INSTRUMENT CALIBRATOR) Physical Exam General Appearance: No Acute Distress, Comfortable, Malnourished Appearance Remarks Disheveled, mumbles to questions (Gely Dill INSTRUMENT CALIBRATOR) Eyes Eye Exam: Pupils Equal (Gely Dill BNick INSTRUMENT CALIBRATOR) Throat Throat Exam: Oral Mucosa [place] & Moist (Gely Dill INSTRUMENT CALIBRATOR) Pulmonary Resp Exam: Clear Bilaterally, Breath Sounds Equal (Gely Dill B. INSTRUMENT CALIBRATOR) Cardiology CV Exam: Regular, Normal Sinus Rhythm (Gely Dill INSTRUMENT CALIBRATOR) Gastrointestinal/Abdomen GI Exam: Soft, Non-Tender, Bowel Sounds Present (Gely Dill B. INSTRUMENT CALIBRATOR) Musculoskeletal MS Exam: Joints Intact, Normal Tone, Unable to Ambulate (Gely Dill B. INSTRUMENT CALIBRATOR) Integumentary Skin Exam: Clear, Warm, Dry, Intact (Gely Dill. INSTRUMENT CALIBRATOR) Extremeties Extremities Exam: No Edema, Pedal Pulses Palpable (Gely Dill B. INSTRUMENT CALIBRATOR) Neurologic Neuro Exam: Awake, Moving All Extremities, Obtunded Neuro Remarks incomprehensible speech (Gely Dill) Assessment/Plan Assessment Summary: HERVE/Acute Renal Failure, Diabetes Mellitus Electrolyte Assessment: Hypernatremia, Metabolic Acidosis Problem List: (1) Acute renal failure ICD Codes: N17.9 - Acute kidney failure, unspecified Status: Acute Plan: This patient has underlying renal impairment, creatinine 1.8-2 at baseline He has 1.2 g proteinuria, which 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 HERVE likely due to dehydration, sepsis, DKA, and now has apparently progressed to ATN Vascath placed and HD started 02/21 Seen during HD today on a 2K, 300 BFR, goal 3L Continue HD support MWF and as needed Adjust UF as needed for fluid balance Change IVF to D10 @ 20 given NPO status Palliative care consultation may be appropriate given living situation (2) DKA (diabetic ketoacidoses) ICD Codes: E13.10 - Other specified diabetes mellitus with ketoacidosis without coma Status: Acute Plan: Having episodes of hypoglycemia continue to adjust insulin with primary team. Start D10 (3) Dehydration with hypernatremia ICD Codes: E87.0 - Hyperosmolality and hypernatremia Status: Acute Plan: Improving Needs free water intake Has NG tube in place (4) Sepsis ICD Codes: A41.9 - Sepsis, unspecified organism Status: Acute Plan: Elevated lactic acid Given vancomycin, now on zosyn. 1/2 blood cultures with coag neg staph. (5) Elevated troponin ICD Codes: R74.8 - Abnormal levels of other serum enzymes Plan: cardiology has evaluated suspect demand ischemia as etiology of elevated troponin levels 2D echo shows EF 25% (Gely Dill) Plan patient was seen and examined during dialysis. Agree with above assessment and plan. Prognosis is guarded. (Mc Quintanilla MD) Problem Qualifiers (1) Acute renal failure: Qualified Codes: N17.9 - Acute kidney failure, unspecified (2) DKA (diabetic ketoacidoses): (3) Sepsis: Qualified Codes: A41.9 - Sepsis, unspecified organism Gely Dill Feb 23, 2017 11:18 Mc Quintanilla MD Feb 23, 2017 11:20
--- NOTE | 2017-02-23 11:18 | HHI.NPPN ---
Subjective General Problems: Mebatolic Acidosis Renal Failure: Chronic, Acute Interval History He is awake, restrained and unable to answer questions. Seen during dialysis. He has become oligoanuric. (Gely Dill) Review of Systems General General Remarks unable to evaluate (Gely Dill) Objective Data Data Vital Signs Date Time Temp Pulse Resp B/P (MAP) Pulse Ox O2 Delivery O2 Flow Rate FiO2 02/23/17 08:52 100 Nasal Cannula 2.00 02/23/17 06:00 84 02/23/17 04:00 81 02/23/17 04:00 98.5 81 30 127/74 (91) 100 02/23/17 03:59 100 Nasal Cannula 3.00 02/23/17 02:00 82 02/23/17 00:42 100 Nasal Cannula 4.00 02/23/17 00:00 97.9 79 34 124/75 (91) 100 02/23/17 00:00 79 02/22/17 22:00 78 02/22/17 20:20 100 Nasal Cannula 4.00 02/22/17 20:00 98.2 74 24 148/60 (89) 100 02/22/17 20:00 74 02/22/17 18:00 73 02/22/17 17:00 71 02/22/17 16:00 97.3 71 31 116/71 (86) 100 02/22/17 16:00 71 02/22/17 15:00 68 02/22/17 14:00 68 02/22/17 13:00 67 02/22/17 12:00 97.5 67 33 111/59 (76) 100 02/22/17 12:00 67 (Gely Dill) -: 02/23/17 0600 02/23/17 0600 Imaging Last 72 hours Impressions Chest X-Ray 02/21/17 0600 Signed Impressions: Service Date/Time: Tuesday, February 21, 2017 04:36 - CONCLUSION: Bibasilar areas of suspected consolidation/atelectasis and effusion being worse on the right. The findings have worsened since the prior exam. Flakito Chan MD Chest X-Ray 02/21/17 0000 Signed Impressions: Service Date/Time: Saturday, February 21, 2017 14:05 - CONCLUSION: 1. Uncomplicated line placement. No evidence of pneumothorax. Gary Diaz MD Tubes & Lines: Vas-Cath, Scott Drip Comment D5W (Gely Dill HOME ENERGY INSPECTOR) Physical Exam General Appearance: No Acute Distress, Comfortable, Malnourished Appearance Remarks Disheveled, mumbles to questions (Gely Dill HOME ENERGY INSPECTOR) Eyes Eye Exam: Pupils Equal (Gely Dill BNick HOME ENERGY INSPECTOR) Throat Throat Exam: Oral Mucosa [place] & Moist (Gely Dill HOME ENERGY INSPECTOR) Pulmonary Resp Exam: Clear Bilaterally, Breath Sounds Equal (Gely Dill B. HOME ENERGY INSPECTOR) Cardiology CV Exam: Regular, Normal Sinus Rhythm (Gely Dill HOME ENERGY INSPECTOR) Gastrointestinal/Abdomen GI Exam: Soft, Non-Tender, Bowel Sounds Present (Gely Dill B. HOME ENERGY INSPECTOR) Musculoskeletal MS Exam: Joints Intact, Normal Tone, Unable to Ambulate (Gely Dill B. HOME ENERGY INSPECTOR) Integumentary Skin Exam: Clear, Warm, Dry, Intact (Gely Dill. HOME ENERGY INSPECTOR) Extremeties Extremities Exam: No Edema, Pedal Pulses Palpable (Gely Dill B. HOME ENERGY INSPECTOR) Neurologic Neuro Exam: Awake, Moving All Extremities, Obtunded Neuro Remarks incomprehensible speech (Gely Dill) Assessment/Plan Assessment Summary: HERVE/Acute Renal Failure, Diabetes Mellitus Electrolyte Assessment: Hypernatremia, Metabolic Acidosis Problem List: (1) Acute renal failure ICD Codes: N17.9 - Acute kidney failure, unspecified Status: Acute Plan: This patient has underlying renal impairment, creatinine 1.8-2 at baseline He has 1.2 g proteinuria, which 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 HERVE likely due to dehydration, sepsis, DKA, and now has apparently progressed to ATN Vascath placed and HD started 02/21 Seen during HD today on a 2K, 300 BFR, goal 3L Continue HD support MWF and as needed Adjust UF as needed for fluid balance Change IVF to D10 @ 20 given NPO status Palliative care consultation may be appropriate given living situation (2) DKA (diabetic ketoacidoses) ICD Codes: E13.10 - Other specified diabetes mellitus with ketoacidosis without coma Status: Acute Plan: Having episodes of hypoglycemia continue to adjust insulin with primary team. Start D10 (3) Dehydration with hypernatremia ICD Codes: E87.0 - Hyperosmolality and hypernatremia Status: Acute Plan: Improving Needs free water intake Has NG tube in place (4) Sepsis ICD Codes: A41.9 - Sepsis, unspecified organism Status: Acute Plan: Elevated lactic acid Given vancomycin, now on zosyn. 1/2 blood cultures with coag neg staph. (5) Elevated troponin ICD Codes: R74.8 - Abnormal levels of other serum enzymes Plan: cardiology has evaluated suspect demand ischemia as etiology of elevated troponin levels 2D echo shows EF 25% (Gely Dill) Plan patient was seen and examined during dialysis. Agree with above assessment and plan. Prognosis is guarded. (Mc Quintanilla MD) Problem Qualifiers (1) Acute renal failure: Qualified Codes: N17.9 - Acute kidney failure, unspecified (2) DKA (diabetic ketoacidoses): (3) Sepsis: Qualified Codes: A41.9 - Sepsis, unspecified organism Gely Dill Feb 23, 2017 11:18 Mc Quintanilla MD Feb 23, 2017 11:20
[2017-02-23] MEDS ORDERED: SODIUM CHLORIDE 23.4% INJ 154 MEQ in DEXTROSE 10% INJ 1,000 ML IV SCH ×4 (12:00)
[2017-02-23] MEDS: metroNIDAZOLE 500 MG INJ 100 ML IV SCH ×4 (12:00→20:11)
--- NOTE | 2017-02-23 12:05 | PD.ONC.PN ---
Subjective Subjective Remarks Afebrile overnight. Receiving dialysis at bedside. Confused. Objective Data Date Time Temp Pulse Resp B/P (MAP) Pulse Ox O2 Delivery O2 Flow Rate FiO2 02/23/17 11:00 78 02/23/17 10:00 79 02/23/17 09:00 70 02/23/17 08:52 100 Nasal Cannula 2.00 02/23/17 08:00 70 02/23/17 08:00 98.2 70 20 124/66 (85) 100 02/23/17 07:00 74 02/23/17 06:00 84 02/23/17 04:00 81 02/23/17 04:00 98.5 81 30 127/74 (91) 100 02/23/17 03:59 100 Nasal Cannula 3.00 02/23/17 02:00 82 02/23/17 00:42 100 Nasal Cannula 4.00 02/23/17 00:00 97.9 79 34 124/75 (91) 100 02/23/17 00:00 79 02/22/17 22:00 78 02/22/17 20:20 100 Nasal Cannula 4.00 02/22/17 20:00 98.2 74 24 148/60 (89) 100 02/22/17 20:00 74 02/22/17 18:00 73 02/22/17 17:00 71 02/22/17 16:00 97.3 71 31 116/71 (86) 100 02/22/17 16:00 71 02/22/17 15:00 68 02/22/17 14:00 68 02/22/17 13:00 67 02/22/17 12:00 97.5 67 33 111/59 (76) 100 02/22/17 12:00 67 02/23/17 02/23/17 02/23/17 07:00 15:00 23:00 Intake Total 871 ml Output Total 40 ml Balance 831 ml Result Diagram: 02/23/1759902/23/17599 Laboratory Results Laboratory Tests Test 02/22/17 21:09 02/23/17 06:00 Prothrombin Time 28.6 SEC Prothromb Time International Ratio 2.5 RATIO Activated Partial Thromboplast Time 46.9 SEC Fibrinogen 91 mg/dL D-Dimer Quantitative (PE/DVT) 12.14 MG/L FEU White Blood Count 10.3 TH/MM3 Red Blood Count 3.12 MIL/MM3 Hemoglobin 9.3 GM/DL Hematocrit 28.3 % Mean Corpuscular Volume 90.7 FL Mean Corpuscular Hemoglobin 29.9 PG Mean Corpuscular Hemoglobin Concent 33.0 % Red Cell Distribution Width 16.6 % Platelet Count 37 TH/MM3 Mean Platelet Volume 11.5 FL Neutrophils (%) (Auto) 84.1 % Lymphocytes (%) (Auto) 7.7 % Monocytes (%) (Auto) 7.5 % Eosinophils (%) (Auto) 0.3 % Basophils (%) (Auto) 0.4 % Neutrophils # (Auto) 8.6 TH/MM3 Lymphocytes # (Auto) 0.8 TH/MM3 Monocytes # (Auto) 0.8 TH/MM3 Eosinophils # (Auto) 0.0 TH/MM3 Basophils # (Auto) 0.0 TH/MM3 CBC Comment AUTO DIFF Differential Comment AUTO DIFF CONFIRMED Platelet Estimate LOW Platelet Morphology Comment NORMAL Ovalocytes 1+ [place] Cells 1+ Blood Urea Nitrogen 92 MG/DL Creatinine 5.93 MG/DL Random Glucose 180 MG/DL Calcium Level 8.3 MG/DL Sodium Level 144 MEQ/L Potassium Level 4.8 MEQ/L Chloride Level 111 MEQ/L Carbon Dioxide Level 17.0 MEQ/L Anion Gap 16 MEQ/L Estimat Glomerular Filtration Rate 11 ML/MIN Administered Medications Medications (Trade) Dose Ordered Sig/Fede Route PRN Reason Start Time Stop Time Status Last Admin Dose Admin Sodium Chloride (NS Flush) 2 ml BID IV FLUSH 02/19/17 21:00 02/23/17 08:59 Pantoprazole Sodium (Protonix Inj) 40 mg DAILY IV PUSH 02/20/17 09:00 02/23/17 08:59 Heparin Sodium (Porcine) (Heparin Inj) 5,000 units Q12H SQ 02/19/17 17:00 Future Hold 02/21/17 16:36 Chlorhexidine Gluconate (Chlorhexidine 2% Cloth) 3 pack Taper DAILY@04 TOP 02/20/17 04:00 02/16/18 03:59 02/23/17 04:00 Senna/Docusate Sodium (Princess-Colace) 1 tab BID PO 02/19/17 21:00 02/22/17 08:22 Aspirin (Aspirin Chew) 81 mg DAILY CHEW 02/19/17 15:15 Future Hold 02/21/17 07:46 Metoprolol Tartrate (Lopressor) 25 mg Q8HR PO 02/19/17 16:30 02/23/17 06:00 Melatonin (Melatonin) 5 mg HS PRN PO SLEEP 02/19/17 22:15 02/20/17 21:45 Insulin Detemir (Levemir Inj) 5 units Q12H SQ 02/20/17 09:30 Future Hold 02/22/17 08:22 Insulin Aspart (NovoLOG INJ) 3 units TIDAC SQ 02/20/17 12:00 Future Hold 02/22/17 08:00 Insulin Aspart (NovoLOG SUPPLEMENTAL SCALE) 1 ACHS SLIDING SCALE SQ 02/20/17 12:00 Future Hold 02/20/17 21:31 Dextrose (D50w (Vial) Inj) 50 ml UNSCH PRN IV PUSH HYPOGLYCEMIA-SEE COMMENTS 02/20/17 09:30 02/22/17 12:32 Sodium Chloride 1,000 ml @ 200 mls/hr Q5H PRN IV WITH DIALYSIS 02/21/17 10:55 02/21/17 14:48 Mannitol (Mannitol Inj) 12.5 gm UNSCH PRN IV WITH DIALYSIS 02/21/17 11:00 02/21/17 14:48 Heparin Sodium (Porcine) (Heparin Inj) UNSCH PRN .XX WITH DIALYSIS 02/21/17 11:00 02/21/17 14:47 Gentamicin Sulfate (Gentamicin (Dialysis) Inj) 20 mg UNSCH PRN OTHER WITH DIALYSIS 02/21/17 11:00 02/21/17 14:48 Albuterol/ Ipratropium (Duoneb Neb) 1 ampule Q4HR NEB INH 02/22/17 16:00 02/23/17 11:20 Objective Remarks GENERAL: Elderly male, supine in bed. in restraints. receiving dialysis. SKIN: Warm and dry. HEAD: Normocephalic. EYES: No injection or drainage. NECK: Supple, trachea midline. CARDIOVASCULAR: +S1/S2 RESPIRATORY: anterior amador clear. GASTROINTESTINAL: Abdomen soft, non-tender, nondistended. EXTREMITIES: No cyanosis NEUROLOGICAL: awake. following some commands. Assessment/Plan Problem List: (1) thrombocytopenia Plan: 02/23: monitor CBC, expect platelet count to improve once sepsis improves. check coags -- multifactorial due to sepsis, DIC and medications such as Zosyn. (2) acute renal failure, history of chronic kidney disease; possible ATN Plan: --on dialysis Assessment 77y/o male admited with sepsis. h/o diabetes mellitus, hypertension, hypercholesterolemia and questionable developmental delay. chronic renal failure. Attending Statement confuse plat are low. sepsis DIC The exam, history, and the medical decision-making described in the above note were completed with the assistance of the mid-level provider. I reviewed and agree with the findings presented. I attest that I had a [id number] encounter with the patient on the same day, and personally performed and documented my assessment and findings in the medical record. Alba Figueredo Feb 23, 2017 12:05 Alejandra Fraire MD Feb 23, 2017 17:30
[2017-02-23] MEDS: GENTAMICIN SULFATE (DIALYSIS USE ONLY) 20 MG/2 ML VIAL OTHER PRN ×2 (12:21)
[2017-02-23 13:13] LABS: INTERNATIONAL NORMALIZED RATIO 2.6 RATIO
[2017-02-23] MEDS: LEVOFLOXACIN 250 MG PREMIX INJ 50 ML IV SCH ×2 (13:29)
[2017-02-23 14:12] LABS: HEPATITIS A AB IGM NEGATIVE (NEGATIVE); HEPATITIS B SURFACE ANTIGEN NEGATIVE (NEGATIVE); HEPATITIS C AB IgG NEGATIVE (NEGATIVE)
[2017-02-24] VITALS (17 sets, daily range): BP systolic 112–137; BP diastolic 56–72; PULSE 72–88; RESP 7–47; TEMP 97.8–98.6; O2SAT 96–100
[2017-02-24] MEDS ORDERED: DEXTROSE 5% IN WATE 1000ML INJ 1,000 ML IV SCH (01:00)
[2017-02-24] MEDS: RESP: ALBUTEROL 2.5 MG/IPRATROPIUM 0.5 MG NEB (SCH) INH ×10 (03:42→20:57)
[2017-02-24] MEDS: CHLORHEXIDINE GLUCONATE 2 % 1 PACK (2 CLOTHS) TOP SCH ×2 (03:48)
[2017-02-24] MEDS: metroNIDAZOLE 500 MG INJ 100 ML IV SCH ×6 (04:02→20:18)
[2017-02-24] MEDS: METOPROLOL TARTRATE 25 MG TAB PO SCH ×6 (04:03→20:17)
[2017-02-24] MEDS ORDERED: INSULIN HUMAN REGULAR 1,000 UNITS/10 ML VIAL IV PUSH ONE ×4 (04:45→06:15)
[2017-02-24 04:58] LABS: AUTOMATED NEUTROPHIL # 6.4 TH/MM3 (1.8-7.7); BASOPHIL % 0.2 % (0.0-2.0); EOSINOPHIL # 0.1 TH/MM3 (0-0.4); EOSINOPHIL % 0.7 % (0.0-4.0); HEMATOCRIT 28.1 % (39.0-51.0); HEMOGLOBIN 9.3 GM/DL (13.0-17.0); LYMPH % 6.9 % (9.0-44.0); LYMPHOCYTE # 0.5 TH/MM3 (1.0-4.8); MEAN CELL VOLUME 91.8 FL (80.0-100.0); MEAN CORPUSCULAR HEMOGLOBIN 30.3 PG (27.0-34.0); MEAN PLATELET VOLUME 11.1 FL (7.0-11.0); MONO % 9.8 % (0.0-8.0); MONOCYTE # 0.8 TH/MM3 (0-0.9); NEUT % 82.4 % (16.0-70.0); PLATELET COUNT 48 TH/MM3 (150-450); RED BLOOD COUNT 3.06 MIL/MM3 (4.50-5.90); RED CELL DISTRIBUTION WIDTH 16.7 % (11.6-17.2); WHITE BLOOD COUNT 7.8 TH/MM3 (4.0-11.0)
[2017-02-24 05:08] LABS: INTERNATIONAL NORMALIZED RATIO 2.1 RATIO; PROTHROMBIN TIME - PATIENT 23.5 SEC (9.8-11.6)
[2017-02-24 05:47] LABS: BICARBONATE 19.7 MEQ/L (21.0-32.0); CREATININE 4.75 MG/DL (0.60-1.30)
[2017-02-24 07:03] LABS: OVALOCYTES 1+ (NORMAL)
[2017-02-24] MEDS ORDERED: GLUCAGON 1 MG/ML VIAL OTHER PRN ×2 (08:30)
--- NOTE | 2017-02-24 08:32 | HHI.PR ---
Subjective Remarks f/u; renal failure in no acute distress. awake but responding to some questions just by shaking his head. no fever. blood sugar level trend noted. Objective Vitals Vital Signs Date Time Temp Pulse Resp B/P (MAP) Pulse Ox O2 Delivery O2 Flow Rate FiO2 02/24/17 06:00 84 02/24/17 04:00 88 02/24/17 04:00 98.4 88 23 130/67 (88) 100 02/24/17 02:00 84 02/24/17 00:00 98.4 85 47 124/61 (82) 100 02/24/17 00:00 85 02/23/17 22:00 82 02/23/17 20:23 100 Nasal Cannula 2.00 02/23/17 20:00 98.2 71 61 90/52 (65) 100 02/23/17 20:00 71 02/23/17 18:00 77 02/23/17 17:00 74 02/23/17 16:00 98.1 79 17 120/65 100 02/23/17 16:00 79 02/23/17 15:00 80 02/23/17 14:00 83 02/23/17 13:00 84 02/23/17 12:00 80 02/23/17 12:00 98.0 80 34 125/77 (93) 100 02/23/17 11:00 78 02/23/17 10:00 79 02/23/17 09:00 70 02/23/17 08:52 100 Nasal Cannula 2.00 I/O 02/23/17 02/23/17 02/23/17 02/24/17 02/24/17 02/24/17 07:00 15:00 23:00 07:00 15:00 23:00 Intake Total 871 ml 822 ml 235 ml 1484 ml Output Total 40 ml 3000 ml 50 ml 50 ml Balance 831 ml -2178 ml 185 ml 1434 ml Oral Supplement 240 ml IV Total 631 ml 822 ml 100 ml 703 ml Tube Feeding 135 ml 581 ml Other 200 ml Output Urine Total 40 ml 50 ml 50 ml Hemodialysis 3000 ml # Bowel Movements 1 2 1 Result Diagram: 02/24/177 02/24/17416 Imaging Last Impressions Chest X-Ray 02/21/17 06 Signed Impressions: Service Date/Time: Saturday, February 21, 2017 04:36 - CONCLUSION: Bibasilar areas of suspected consolidation/atelectasis and effusion being worse on the right. The findings have worsened since the prior exam. Flakito Chan MD Liver Ultrasound 02/20/17 0000 Signed Impressions: Service Date/Time: Monday, February 20, 2017 10:51 - CONCLUSION: Gallstones and gallbladder wall thickening. There is no intrahepatic biliary duct dilatation. Rylan Wang MD FACR Head CT 02/19/17 1205 Signed Impressions: Service Date/Time: February 13:02 - CONCLUSION: 1. Cortical atrophy. 2. No acute abnormality identified. The examination is stable compared to prior dated 04/17/12. Sharath Wang MD Renal Ultrasound 02/19/17 0000 Signed Impressions: Service Date/Time: February 17:19 - CONCLUSION: No evidence of hydronephrosis. Indwelling Scott catheter with collapsed bladder in thickened bladder wall. Cal Tomlinsno MD Objective Remarks GENERAL: with some wheezing. CARDIOVASCULAR: Regular rate and regular rhythm without murmurs, gallops, or rubs. RESPIRATORY: bilateral wheezing. GASTROINTESTINAL: Abdomen soft, non-tender, nondistended. Normal, active bowel sounds MUSCULOSKELETAL: Extremities without clubbing, cyanosis, or edema. NEURO: Awake but confused. Medications and IVs Current Medications IV Flush (NS Flush) 2 ml UNSCH PRN IV FLUSH FLUSH AFTER USING IV ACCESS; Start 02/19/17 at 12:15; Stop 02/19/17 at 16:15; Status DC Sodium Chloride 1,000 ml @ 1,000 mls/hr Q1H IV Last administered on 12:17; Start 02/19/17 at 12:05; Stop 02/19/17 at 13:04; Status DC Sodium Chloride 1,000 ml @ 999 mls/hr BOLUS ONCE IV Last administered on 12:18; Start 02/19/17 at 12:15; Stop 02/19/17 at 13:15; Status DC Insulin Human Regular (NovoLIN R INJ) 10 units ONCE ONCE IV PUSH Last administered on 02/19/17 12:23; Start 02/19/17 at 12:15; Stop 02/19/17 at 12 :16; Status DC Sodium Chloride 1,000 ml @ 999 mls/hr BOLUS ONCE IV Last administered on 13:25; Start 02/19/17 at 13:00; Stop 02/19/17 at 14:00; Status DC Sodium Chloride 1,000 ml @ 250 mls/hr Q4H IV Last administered on 02/19/17 14:36; Start 02/19/17 at 13:35; Stop 02/19/17 at 16:40; Status DC Dextrose/Sodium Chloride 1,000 ml @ 200 mls/hr Q5H IV ; Start 02/19/17 at 13: 35; Stop 02/20/17 at 00:07; Status DC Insulin Human Regular 100 units/ Sodium Chloride 100 ml @ 6.5 mls/hr TITRATE IV Last administered on 02/20/17 00:30; Start 02/19/17 at 15:00; Stop 02/20 at 09:24; Status DC Sodium Bicarbonate (Sodium Bicarbonate 8.4% Inj) 100 meq UNSCH PRN IV PUSH SEE LABEL COMMENTS; Start 02/19/17 at 13:45 Sodium Bicarbonate (Sodium Bicarbonate 8.4% Inj) 50 meq UNSCH PRN IV PUSH SEE LABEL COMMENTS; Start 02/19/17 at 13:45 Sodium Phosphate 15 mmol/Sodium Chloride 105 ml @ 25 mls/hr UNSCH PRN IV SEE LABEL COMMENTS; Start 02/19/17 at 13:45 Miscellaneous Information 1 Q361D XX ; Start 02/19/17 at 13:45; Stop 02/19/17 at 16:14; Status DC Chlorhexidine Gluconate (Chlorhexidine 2% Cloth) 3 pack Taper DAILY@04 TOP ; Start 02/20/17 at 04:00; Stop 02/20/17 at 04:00; Status DC Chlorhexidine Gluconate (Chlorhexidine 2% Cloth) 3 pack UNSCH PRN TOP HYGIENIC CARE; Start 02/19/17 at 13:45; Stop 02/19/17 at 16:14; Status DC Piperacillin Sod/ Tazobactam Sod 100 ml @ 200 mls/hr ONCE ONCE IV Last administered on 02/19/17 14:36; Start 02/19/17 at 14:30; Stop 02/19/17 at 14 :59; Status DC Vancomycin HCl 1000 mg/Sodium Chloride 250 ml @ 250 mls/hr ONCE ONCE IV Last administered on 02/19/17 14:36; Start 02/19/17 at 14:30; Stop 02/19/17 at 15 :29; Status DC Sodium Chloride (NS Flush) 2 ml UNSCH PRN IV FLUSH FLUSH AFTER USING IV ACCESS ; Start 02/19/17 at 14:15 Sodium Chloride (NS Flush) 2 ml BID IV FLUSH Last administered on 02/23/17 20 :08; Start 02/19/17 at 21:00 Pantoprazole Sodium (Protonix Inj) 40 mg DAILY IV PUSH Last administered on 08:59; Start 02/20/17 at 09:00 Albuterol/ Ipratropium (Duoneb Neb) 1 ampule Q6HR NEB INH Last administered on 02/22/17 10:35; Start 02/19/17 at 16:00; Stop 02/22/17 at 13:56; Status DC Albuterol/ Ipratropium (Duoneb Neb) 1 ampule Q4HR NEB PRN INH WHEEZING; Start 02/19/17 at 14:15; Stop 02/22/17 at 13:57; Status DC Heparin Sodium (Porcine) (Heparin Inj) 5,000 units Q12H SQ Last administered on 02/21/17 16:36; Start 02/19/17 at 17:00; Status Future Hold Miscellaneous Information 1 Q361D XX ; Start 02/19/17 at 14:15 Chlorhexidine Gluconate (Chlorhexidine 2% Cloth) 3 pack Taper DAILY@04 TOP Last administered on 02/24/17 03:48; Start 02/20/17 at 04:00; Stop 02/16/18 at 03:59 Chlorhexidine Gluconate (Chlorhexidine 2% Cloth) 3 pack UNSCH PRN TOP HYGIENIC CARE; Start 02/19/17 at 14:15 Senna/Docusate Sodium (Princess-Colace) 1 tab BID PO Last administered on 20:09; Start 02/19/17 at 21:00 Magnesium Hydroxide (Milk Of Magnesia Liq) 30 ml Q12H PRN PO MILD - MODERATE CONSTIPATION; Start 02/19/17 at 14:15 Sennosides (Senokot) 17.2 mg Q12H PRN PO MODERATE - SEVERE CONSTIPATION; Start 02/19/17 at 14:15 Bisacodyl (Dulcolax Supp) 10 mg DAILY PRN RECTAL SEVERE CONSITIPATION; Start 02/19/17 at 14:15 Lactulose (Lactulose Liq) 30 ml DAILY PRN PO SEVERE CONSITIPATION; Start 02/19 at 14:15 Aspirin (Aspirin Chew) 81 mg DAILY CHEW Last administered on 02/21/17 07:46; Start 02/19/17 at 15:15; Status Future Hold Piperacillin Sod/ Tazobactam Sod 50 ml @ 100 mls/hr Q6H IV Last administered on 02/22/17 21:10; Start 02/19/17 at 21:00; Stop 02/23/17 at 01:15; Status DC Sodium Chloride 1,000 ml @ 999 mls/hr BOLUS ONCE IV Last administered on 16:53; Start 02/19/17 at 16:15; Stop 02/19/17 at 17:15; Status DC Metoprolol Tartrate (Lopressor) 25 mg Q8HR PO Last administered on 02/24/17 04:03; Start 02/19/17 at 16:30 Sodium Chloride 1,000 ml @ 100 mls/hr Q10H IV Last administered on 02/19/17 17:22; Start 02/19/17 at 16:45; Stop 02/20/17 at 00:07; Status DC Sodium Bicarbonate (Sodium Bicarbonate 8.4% Inj) 50 meq ONCE ONCE IV PUSH Last administered on 02/19/17 16:50; Start 02/19/17 at 17:00; Stop 02/19/17 at 17:01; Status DC Sodium Chloride 1,000 ml @ 999 mls/hr BOLUS ONCE IV ; Start 02/19/17 at 17:00 ; Stop 02/19/17 at 18:00; Status DC Melatonin (Melatonin) 5 mg HS PRN PO SLEEP Last administered on 02/20/17 21: 45; Start 02/19/17 at 22:15 Potassium Chloride 100 ml @ 25 mls/hr BOLUS ONCE IV Last administered on 00:18; Start 02/20/17 at 00:15; Stop 02/20/17 at 04:14; Status DC Dextrose 1,000 ml @ 120 mls/hr Q8H20M IV Last administered on 02/20/17 08:59 ; Start 02/20/17 at 00:15; Stop 02/20/17 at 09:24; Status DC Miscellaneous Information 1 ONCE ONCE .XX ; Start 02/20/17 at 09:30; Stop at 10:06; Status DC Miscellaneous Information 1 ONCE ONCE .XX ; Start 02/20/17 at 09:30; Stop at 10:01; Status DC Insulin Detemir (Levemir Inj) 5 units Q12H SQ Last administered on 02/22/17 08:22; Start 02/20/17 at 09:30; Status Future Hold Insulin Aspart (NovoLOG INJ) 3 units TIDAC SQ Last administered on 02/22/17 08:00; Start 02/20/17 at 12:00; Status Future Hold Insulin Aspart (NovoLOG SUPPLEMENTAL SCALE) 1 ACHS SLIDING SCALE SQ Last administered on 02/20/17 21:31; Start 02/20/17 at 12:00; Status Future Hold Dextrose (D50w (Vial) Inj) 50 ml UNSCH PRN IV PUSH HYPOGLYCEMIA-SEE COMMENTS Last administered on 02/22/17 12:32; Start 02/20/17 at 09:30 Glucagon (Glucagon Inj) 1 mg UNSCH PRN OTHER HYPOGLYCEMIA-SEE COMMENTS; Start 02/20/17 at 09:30 Sodium Chloride 1,000 ml @ 60 mls/hr [id number] IV Last administered on 12:14; Start 02/20/17 at 09:30; Stop 02/22/17 at 13:47; Status DC Haloperidol Lactate (Haldol Inj) 2 mg Q4H PRN IV agitation; Start 02/20/17 at 09:45 Lorazepam (Ativan Inj) 1 mg Q6H PRN IV PUSH ANXIETY AND/OR AGITATION; Start at 08:00 Sodium Chloride 1,000 ml @ 0 mls/hr Q0M PRN OTHER For Prime & Rinse Back; Start 02/21/17 at 10:55 Heparin Sodium (Porcine) (Heparin Inj) 8,000 units UNSCH PRN IV FLUSH WITH DIALYSIS; Start 02/21/17 at 11:00 Sodium Chloride 1,000 ml @ 200 mls/hr Q5H PRN IV WITH DIALYSIS Last administered on 02/21/17 14:48; Start 02/21/17 at 10:55 Sodium Chloride 1,000 ml @ 0 mls/hr Q0M PRN OTHER WITH DIALYSIS; Start at 10:55 Mannitol (Mannitol Inj) 12.5 gm UNSCH PRN IV WITH DIALYSIS Last administered on 02/21/17 14:48; Start 02/21/17 at 11:00 Albumin Human 100 ml @ 60 mls/hr UNSCH PRN IV WITH DIALYSIS; Start 02/21/17 at 11:00 Sodium Chloride (NS Flush) 5 ml UNSCH PRN IV FLUSH WITH DIALYSIS; Start at 11:00 Heparin Sodium (Porcine) (Heparin Inj) UNSCH PRN .XX WITH DIALYSIS Last administered on 02/21/17 14:47; Start 02/21/17 at 11:00 Gentamicin Sulfate (Gentamicin (Dialysis) Inj) 20 mg UNSCH PRN OTHER WITH DIALYSIS Last administered on 02/23/17 12:21; Start 02/21/17 at 11:00 Ondansetron HCl (Zofran Inj) 4 mg UNSCH PRN IV PUSH WITH DIALYSIS; Start 02/21 at 11:00 Acetaminophen (Tylenol) 650 mg UNSCH PRN PO for headach, pain, temp > 101F; Start 02/21/17 at 11:00 Diphenhydramine HCl (Benadryl) 25 mg UNSCH PRN PO for hives/itching/anaphylaxis ; Start 02/21/17 at 11:00 Nitroglycerin (Nitrostat Sl) 0.4 mg UNSCH PRN SL CHEST PAIN; Start 02/21/17 at 11:00 Clonidine (Catapres) 0.1 mg UNSCH PRN PO for BP > 180/100 X 2 readings; Start 02/21/17 at 11:00 Gelatin (Gelfoam 12 Mm/7 Mm Top) 1 foam UNSCH PRN TOP SEE LABEL COMMENTS; Start 02/21/17 at 11:00 Midazolam HCl (Versed Inj) 5 mg STK-MED ONCE .ROUTE ; Start 02/21/17 at 12:47; Stop 02/21/17 at 12:48; Status DC Flumazenil (Romazicon Inj) 0.5 mg STK-MED ONCE .ROUTE ; Start 02/21/17 at 13:42 ; Stop 02/21/17 at 13:43; Status DC Flumazenil (Romazicon Inj) 0.5 mg STK-MED ONCE .ROUTE ; Start 02/21/17 at 13:42 ; Stop 02/21/17 at 13:43; Status DC Flumazenil (Romazicon Inj) 0.5 mg STAT ONCE IV ; Start 02/21/17 at 14:00; Stop 02/21/17 at 14:01; Status DC Albuterol/ Ipratropium (Duoneb Neb) 1 ampule Q4HR NEB INH Last administered on 02/24/17 03:42; Start 02/22/17 at 16:00 Albuterol/ Ipratropium (Duoneb Neb) 1 ampule Q2HR NEB PRN INH WHEEZING; Start 02/22/17 at 14:00 Dextrose 1,000 ml @ 42 mls/hr [id number] IV Last administered on 02/22/17 18:45 ; Start 02/22/17 at 18:45; Stop 02/23/17 at 11:20; Status DC Vancomycin HCl 1000 mg/Sodium Chloride 250 ml @ 250 mls/hr ONCE ONCE IV Last administered on 02/23/17 01:38; Start 02/23/17 at 01:30; Stop 02/23/17 at 02 :29; Status DC Metronidazole 100 ml @ 100 mls/hr Q8H IV Last administered on 02/24/17 04:02 ; Start 02/23/17 at 12:00 Levofloxacin/ Dextrose 50 ml @ 50 mls/hr Q24H IV Last administered on 13:29; Start 02/23/17 at 11:00 Sodium Chloride 154 meq/Dextrose 1,038.5 ml @ 20 mls/hr Q24H IV Last administered on 02/23/17 13:28; Start 02/23/17 at 12:00; Stop 02/24/17 at 00 :50; Status DC Dextrose 1,000 ml @ 42 mls/hr [id number] IV Last administered on 02/24/17 01:46 ; Start 02/24/17 at 01:00; Stop 02/24/17 at 04:39; Status DC Insulin Human Regular (NovoLIN R INJ) 10 units NOW ONCE IV PUSH Last administered on 02/24/17 05:01; Start 02/24/17 at 04:45; Stop 02/24/17 at 04 :47; Status DC Insulin Human Regular (NovoLIN R INJ) 10 units ONCE ONCE IV PUSH Last administered on 02/24/17 06:30; Start 02/24/17 at 06:15; Stop 02/24/17 at 06 :16; Status DC A/P Problem List: (1) Acute metabolic encephalopathy ICD Code: G93.41 - Metabolic encephalopathy (2) Altered mental status ICD Code: R41.82 - Altered mental status, unspecified Status: Acute (3) DKA (diabetic ketoacidoses) ICD Code: E13.10 - Other specified diabetes mellitus with ketoacidosis without coma Status: Acute (4) Non-STEMI (non-ST elevated myocardial infarction) ICD Code: I21.4 - Non-ST elevation (NSTEMI) myocardial infarction Status: Acute (5) Dehydration with hypernatremia ICD Code: E87.0 - Hyperosmolality and hypernatremia Status: Acute (6) Sepsis ICD Code: A41.9 - Sepsis, unspecified organism Status: Acute (7) UTI (urinary tract infection) ICD Code: N39.0 - Urinary tract infection, site not specified Status: Acute (8) Acute renal failure ICD Code: N17.9 - Acute kidney failure, unspecified Status: Acute (9) Hyperglycemia ICD Code: R73.9 - Hyperglycemia, unspecified Status: Acute (10) Lactic acidemia ICD Code: E87.2 - Acidosis (11) Transaminitis ICD Code: R74.0 - Nonspecific elevation of levels of transaminase and lactic acid dehydrogenase [LDH] (12) Respiratory insufficiency ICD Code: R06.89 - Other abnormalities of breathing Assessment and Plan A/P Acute metabolic encephalopathy -Treat agitation with when necessary Haldol -continue to monitor. Respiratory insufficiency - Tachypnea most likely secondary to metabolic acidosis and sepsis. - DuoNeb every 6 hours when necessary. elevated troponin Hypertension cardiomyopathy -echo with EF 25% - Aspirin on hold due to thrombocytopenia. - Metoprolol 25 mg every 8 hours - Avoid statins due to transaminitis -evaluated by cardiology. Transaminitis - Monitor liver enzymes most likely secondary to hypotension/severe dehydration -will monitor Acute kidney injury superimposed on chronic kidney disease Severe dehydration Hyperkalemia - Baseline creatinine 1.8 to 2. Acute worsening secondary to severe dehydration and DKA - Monitor renal function closely. c -HD initiated. - Nephrology following. Probable sepsis UTI -- one bottle of the blood cultures with staph coag. negative-likely contamination. -ID consult appreciated and started on Levaquin and Flagyl. -HIDA today. Anemia thrombocytopenia- now trending down- possible DIC?- -hold heparin and aspirin -hematology following. -Monitor CBC. DKA-resolved hypoglycemic episodes- this has resolved. -NG tube in place and started on tube feeding. -D10 was dc'ed due to hyperglycemia over night. -will restart sliding scale coverage. PROPH: - Bilateral lower extremity SCDs. hold Heparin as noted above. - continue Protonix. patient is ill looking with multiple comorbidities. palliative care consult appreciated. will keep in ICU for today for close monitoring. d/w the RN. Problem Qualifiers (1) Altered mental status: Qualified Codes: R41.82 - Altered mental status, unspecified (2) DKA (diabetic ketoacidoses): (3) Sepsis: Qualified Codes: A41.9 - Sepsis, unspecified organism (4) UTI (urinary tract infection): (5) Acute renal failure: Qualified Codes: N17.9 - Acute kidney failure, unspecified Orion Braden MD Feb 24, 2017 08:32
[2017-02-24] MEDS: DOCUSATE SODIUM 50 MG/SENNA 8.6 MG TAB PO SCH ×4 (09:00→20:10)
[2017-02-24] MEDS: SODIUM CHLORIDE 0.9% FLUSH 10 ML FLUSH IV FLUSH SCH ×4 (09:00→20:17)
[2017-02-24] MEDS: PANTOPRAZOLE SODIUM 40 MG VIAL IV PUSH SCH ×2 (09:00)
[2017-02-24 10:25] LABS: ALBUMIN 2.8 GM/DL (3.4-5.0); DIRECT BILIRUBIN ADULT 0.9 MG/DL (0.0-0.2)
[2017-02-24 10:27] LABS: INDIRECT BILIRUBIN 0.5 MG/DL (0.0-0.8); TOTAL BILIRUBIN ADULT 1.4 MG/DL (0.2-1.0); TOTAL PROTEIN 6.3 GM/DL (6.4-8.2)
--- NOTE | 2017-02-24 10:29 | HHI.NPPN ---
Subjective General Problems: Mebatolic Acidosis Renal Failure: Chronic, Acute Interval History Dialyzed yesterday. Blood sugar was nearly 500 overnight. IVF stopped. Tube feeding started but on hold for HIDA today. (Gely Dill) Review of Systems General General Remarks unable to evaluate (Gely Dill) Objective Data Data Vital Signs Date Time Temp Pulse Resp B/P (MAP) Pulse Ox O2 Delivery O2 Flow Rate FiO2 02/24/17 10:00 81 02/24/17 09:00 83 02/24/17 09:00 83 36 117/62 (80) 100 02/24/17 08:41 96 Nasal Cannula 2.00 02/24/17 08:00 81 02/24/17 08:00 98.1 81 36 112/62 (79) 100 02/24/17 06:00 84 02/24/17 04:00 88 02/24/17 04:00 98.4 88 23 130/67 (88) 100 02/24/17 02:00 84 02/24/17 00:00 98.4 85 47 124/61 (82) 100 02/24/17 00:00 85 02/23/17 22:00 82 02/23/17 20:23 100 Nasal Cannula 2.00 02/23/17 20:00 98.2 71 61 90/52 (65) 100 02/23/17 20:00 71 02/23/17 18:00 77 02/23/17 17:00 74 02/23/17 16:00 98.1 79 17 120/65 100 02/23/17 16:00 79 02/23/17 15:00 80 02/23/17 14:00 83 02/23/17 13:00 84 02/23/17 12:00 80 02/23/17 12:00 98.0 80 34 125/77 (93) 100 02/23/17 11:00 78 (Gely Dill) -: 02/24/1741602/24/17416 Imaging Last Impressions Chest X-Ray 02/21/17 0600 Signed Impressions: Service Date/Time: Tuesday, February 21, 2017 04:36 - CONCLUSION: Bibasilar areas of suspected consolidation/atelectasis and effusion being worse on the right. The findings have worsened since the prior exam. Flakito Chan MD Liver Ultrasound 02/20/17 0000 Signed Impressions: Service Date/Time: Monday, February 20, 2017 10:51 - CONCLUSION: Gallstones and gallbladder wall thickening. There is no intrahepatic biliary duct dilatation. Rylan Wang MD FACR Head CT 02/19/17 1205 Signed Impressions: Service Date/Time: February 13:02 - CONCLUSION: 1. Cortical atrophy. 2. No acute abnormality identified. The examination is stable compared to prior dated 04/17/12. Sharath Wang MD Renal Ultrasound 02/19/17 0000 Signed Impressions: Service Date/Time: February 17:19 - CONCLUSION: No evidence of hydronephrosis. Indwelling Scott catheter with collapsed bladder in thickened bladder wall. Cal Tomlinson MD Tubes & Lines: Vas-Cath, Scott Tubes & Lines Comment NG tube Drip Comment None (Gely Dill BNick ROUSE) Physical Exam General Appearance: No Acute Distress, Comfortable, Malnourished Appearance Remarks Disheveled, mumbles to questions (Gely Dill) Eyes Eye Exam: Pupils Equal (Gely Dill BNick WESTONP) Throat Throat Exam: Oral Mucosa Amaya & Moist (Gely Dill BNick WESTONP) Pulmonary Resp Exam: Clear Bilaterally, Breath Sounds Equal (Gely Dill B. CLIENT PROJECT COORDINATOR) Cardiology CV Exam: Regular, Normal Sinus Rhythm (Gely Dill BNick WESTONP) Gastrointestinal/Abdomen GI Exam: Soft, Non-Tender, Bowel Sounds Present (Gely Dill BNick WESTONP) Musculoskeletal MS Exam: Joints Intact, Normal Tone, Unable to Ambulate (Gely Dill BNick CLIENT PROJECT COORDINATOR) Integumentary Skin Exam: Clear, Warm, Dry, Intact (Gely Dill BNick WESTONP) Extremeties Extremities Exam: No Edema, Pedal Pulses Palpable (Gely Dill B. CLIENT PROJECT COORDINATOR) Neurologic Neuro Exam: Awake, Moving All Extremities, Obtunded Neuro Remarks incomprehensible speech (Gely Dill) Assessment/Plan Assessment Summary: HERVE/Acute Renal Failure, Diabetes Mellitus Electrolyte Assessment: Hypernatremia, Metabolic Acidosis Problem List: (1) Acute renal failure ICD Codes: N17.9 - Acute kidney failure, unspecified Status: Acute Plan: This patient has underlying renal impairment, creatinine 1.8-2 at baseline He has 1.2 g proteinuria, which 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 HERVE due to ATN secondary to dehydration, sepsis, and DKA Vascath placed and HD started 02/21 UF of 3L yesterday, second treatment, tolerated well. Continue HD support MWF and as needed He is oligoanuric, monitor output Adjust UF as needed for fluid balance Off IVF, needs enteral nutrition, on Nepro Obtain daily labs Await renal recovery Palliative care consultation may be appropriate given living situation (2) DKA (diabetic ketoacidoses) ICD Codes: E13.10 - Other specified diabetes mellitus with ketoacidosis without coma Status: Acute Plan: DKA resolved, difficulty controlling glucose, has episodes of hypoglycemia, hyperglycemic yesterday continue to adjust insulin with primary team. (3) Sepsis ICD Codes: A41.9 - Sepsis, unspecified organism Status: Acute Plan: Elevated lactic acid He is on flagyl and levaquin 1/2 blood cultures with coag neg staph. HIDA scan ordered (4) Elevated troponin ICD Codes: R74.8 - Abnormal levels of other serum enzymes Plan: cardiology has evaluated suspect demand ischemia as etiology of elevated troponin levels 2D echo shows EF 25% (5) Dehydration with hypernatremia ICD Codes: E87.0 - Hyperosmolality and hypernatremia Status: Acute Plan: Corrected, monitor for recurrence Plan Prognosis is guarded. (Gely Dill) Plan patient was seen and examined. Oliguric. Had dialysis yesterday, dialysis again tomorrow. Continue supportive care, avoid nephrotoxic agents. Baseline creatinine was around 1.8. (Mc Quintanilla MD) Problem Qualifiers (1) Acute renal failure: Qualified Codes: N17.9 - Acute kidney failure, unspecified (2) DKA (diabetic ketoacidoses): (3) Sepsis: Qualified Codes: A41.9 - Sepsis, unspecified organism Gely Dill Feb 24, 2017 10:29 Mc Quintanilla MD Feb 24, 2017 10:42
[2017-02-24] MEDS: LEVOFLOXACIN 250 MG PREMIX INJ 50 ML IV SCH ×2 (11:00)
[2017-02-24] MEDS: INSULIN ASPART SUPPLEMENTAL SCALE SQ SCH ×6 (12:00→20:17)
--- NOTE | 2017-02-24 15:03 | RADRPT ---
EXAM DATE/TIME: 02/24/2017 12:33 This report includes an Addendum and supersedes previous reports for this exam. [facility] COMPARISON: US ABDOMEN - LIVER, February 20, 2017, 10:51. INDICATIONS : Abdominal pain. DOSE: 4.2 mCi Tc99m Mebrofenin IV MEDICAL HISTORY : Hypercholesterolemia. Hypertension. Diabetes mellitus type 2. SURGICAL HISTORY : Appendectomy. ENCOUNTER: Initial ACUITY: 1 day PAIN SCALE: 2/10 LOCATION: Right upper quadrant TECHNIQUE: Following the intravenous administration of radiotracer, dynamic sequential images were performed wit h continuous acquisition. FINDINGS: HEPATIC KINETICS: There is prompt uptake of radiotracer in the liver. No focal defects are seen. There is normal rate of washout from the hepatic parenchyma. BILIARY CLEARANCE: Activity is first seen in the extrahepatic biliary system at 15 minutes. There is normal excretion i nto the small bowel. GALLBLADDER: Activity is not visualized within the gallbladder. Common bile duct kinetics are normal and there is no evidence of biliary obstruction. BILIARY ENTRIC REFLUX: None observed. CONCLUSION: 1. Lack of visualization of the gallbladder. We will have the patient return for delayed imaging. At this point acute cholecystitis versus chronic cholecystitis. Dontrell Mcqueen Jr., MD on February 24, 2017 at 14:56 Board Certified Radiologist. This report was verified electronically. ADDENDUM: 24-hour delayed imaging shows activity within the gallbladder. This would be consistent with chronic cholecystitis. Dontrell Mcqueen Jr., MD on February 25, 2017 at 12:09 Board Certified Radiologist. This report was verified electronically.
--- NOTE | 2017-02-24 15:11 | PD.ONC.PN ---
Subjective Subjective Remarks Afebrile overnight. Patient lethargic. Just back from HIDA scan. Objective Data Date Time Temp Pulse Resp B/P (MAP) Pulse Ox O2 Delivery O2 Flow Rate FiO2 02/24/17 12:00 80 02/24/17 12:00 80 28 137/72 (93) 100 02/24/17 11:00 83 02/24/17 11:00 83 34 129/66 (87) 100 02/24/17 10:00 81 02/24/17 09:00 83 02/24/17 09:00 83 36 117/62 (80) 100 02/24/17 08:41 96 Nasal Cannula 2.00 02/24/17 08:00 81 02/24/17 08:00 98.1 81 36 112/62 (79) 100 02/24/17 06:00 84 02/24/17 04:00 88 02/24/17 04:00 98.4 88 23 130/67 (88) 100 02/24/17 02:00 84 02/24/17 00:00 98.4 85 47 124/61 (82) 100 02/24/17 00:00 85 02/23/17 22:00 82 02/23/17 20:23 100 Nasal Cannula 2.00 02/23/17 20:00 98.2 71 61 90/52 (65) 100 02/23/17 20:00 71 02/23/17 18:00 77 02/23/17 17:00 74 02/23/17 16:00 98.1 79 17 120/65 100 02/23/17 16:00 79 02/24/17 02/24/17 02/24/17 07:00 15:00 23:00 Intake Total 1484 ml Output Total 50 ml Balance 1434 ml Result Diagram: 02/24/17 0417 02/24/17 0417 Laboratory Results Laboratory Tests Test 02/23/17 23:09 02/24/17 04:17 Activated Partial Thromboplast Time 42.8 SEC 40.6 SEC White Blood Count 7.8 TH/MM3 Red Blood Count 3.06 MIL/MM3 Hemoglobin 9.3 GM/DL Hematocrit 28.1 % Mean Corpuscular Volume 91.8 FL Mean Corpuscular Hemoglobin 30.3 PG Mean Corpuscular Hemoglobin Concent 33.0 % Red Cell Distribution Width 16.7 % Platelet Count 48 TH/MM3 Mean Platelet Volume 11.1 FL Neutrophils (%) (Auto) 82.4 % Lymphocytes (%) (Auto) 6.9 % Monocytes (%) (Auto) 9.8 % Eosinophils (%) (Auto) 0.7 % Basophils (%) (Auto) 0.2 % Neutrophils # (Auto) 6.4 TH/MM3 Lymphocytes # (Auto) 0.5 TH/MM3 Monocytes # (Auto) 0.8 TH/MM3 Eosinophils # (Auto) 0.1 TH/MM3 Basophils # (Auto) 0.0 TH/MM3 CBC Comment AUTO DIFF Differential Comment AUTO DIFF CONFIRMED Ovalocytes 1+ Prothrombin Time 23.5 SEC Prothromb Time International Ratio 2.1 RATIO Fibrinogen 105 mg/dL Blood Urea Nitrogen 70 MG/DL Creatinine 4.75 MG/DL Random Glucose 469 MG/DL Calcium Level 8.0 MG/DL Sodium Level 139 MEQ/L Potassium Level 4.1 MEQ/L Chloride Level 103 MEQ/L Carbon Dioxide Level 19.7 MEQ/L Anion Gap 16 MEQ/L Estimat Glomerular Filtration Rate 14 ML/MIN Total Bilirubin 1.4 MG/DL Direct Bilirubin 0.9 MG/DL Indirect Bilirubin 0.5 MG/DL Aspartate Amino Transf (AST/SGOT) 178 U/L Alanine Aminotransferase (ALT/SGPT) 472 U/L Alkaline Phosphatase 121 U/L Total Protein 6.3 GM/DL Albumin 2.8 GM/DL Administered Medications Medications (Trade) Dose Ordered Sig/Fede Route PRN Reason Start Time Stop Time Status Last Admin Dose Admin Sodium Chloride (NS Flush) 2 ml BID IV FLUSH 02/19/17 21:00 02/24/17 09:00 Pantoprazole Sodium (Protonix Inj) 40 mg DAILY IV PUSH 02/20/17 09:00 02/24/17 09:00 Heparin Sodium (Porcine) (Heparin Inj) 5,000 units Q12H SQ 02/19/17 17:00 Future Hold 02/21/17 16:36 Chlorhexidine Gluconate (Chlorhexidine 2% Cloth) 3 pack Taper DAILY@04 TOP 02/20/17 04:00 02/16/18 03:59 02/24/17 03:48 Senna/Docusate Sodium (Princess-Colace) 1 tab BID PO 02/19/17 21:00 02/23/17 20:09 Aspirin (Aspirin Chew) 81 mg DAILY CHEW 02/19/17 15:15 Future Hold 02/21/17 07:46 Metoprolol Tartrate (Lopressor) 25 mg Q8HR PO 02/19/17 16:30 02/24/17 04:03 Melatonin (Melatonin) 5 mg HS PRN PO SLEEP 02/19/17 22:15 02/20/17 21:45 Insulin Detemir (Levemir Inj) 5 units Q12H SQ 02/20/17 09:30 Future Hold 02/22/17 08:22 Insulin Aspart (NovoLOG INJ) 3 units TIDAC SQ 02/20/17 12:00 Future Hold 02/22/17 08:00 Dextrose (D50w (Vial) Inj) 50 ml UNSCH PRN IV PUSH HYPOGLYCEMIA-SEE COMMENTS 02/20/17 09:30 02/22/17 12:32 Sodium Chloride 1,000 ml @ 200 mls/hr Q5H PRN IV WITH DIALYSIS 02/21/17 10:55 02/21/17 14:48 Mannitol (Mannitol Inj) 12.5 gm UNSCH PRN IV WITH DIALYSIS 02/21/17 11:00 02/21/17 14:48 Heparin Sodium (Porcine) (Heparin Inj) UNSCH PRN .XX WITH DIALYSIS 02/21/17 11:00 02/21/17 14:47 Gentamicin Sulfate (Gentamicin (Dialysis) Inj) 20 mg UNSCH PRN OTHER WITH DIALYSIS 02/21/17 11:00 02/23/17 12:21 Albuterol/ Ipratropium (Duoneb Neb) 1 ampule Q4HR NEB INH 02/22/17 16:00 02/24/17 11:51 Metronidazole 100 ml @ 100 mls/hr Q8H IV 02/23/17 12:00 02/24/17 04:02 Levofloxacin/ Dextrose 50 ml @ 50 mls/hr Q24H IV 02/23/17 11:00 02/24/17 11:00 Objective Remarks GENERAL: Elderly male lying in bed, lethargic. SKIN: Warm and dry. HEAD: Normocephalic. NGT clamped. EYES: No injection or drainage. NECK: Supple, trachea midline. CARDIOVASCULAR: +S1/S2 RESPIRATORY: anterior amador with occasional rhonchi. On 2L O2 via NC GASTROINTESTINAL: Abdomen soft, non-tender, nondistended. EXTREMITIES: No cyanosis NEUROLOGICAL: awake. following commands. Assessment/Plan Problem List: (1) thrombocytopenia Plan: 02/24: coags remain prolonged. platelets improved. monitor CBC -- multifactorial due to sepsis, DIC and medications (2) acute renal failure, history of chronic kidney disease; possible ATN Plan: --on dialysis Assessment 77y/o male admited with sepsis. h/o diabetes mellitus, hypertension, hypercholesterolemia and questionable developmental delay. chronic renal failure. Attending Statement lethargic, confuse, DIC sepsis monitor blood count Alba Figueredo Feb 24, 2017 15:11 Alejandra Fraire MD Feb 24, 2017 20:07
--- NOTE | 2017-02-24 15:48 | HHI.HCPN ---
Reason for visit a. To assist with evaluation and management of symptoms including: Agitation, restlessness, encephalopathy b. To assist medical decision maker(s) with: better understanding of current medical conditions; weighing benefits/burdens of medical treatment options; making medical treatment decisions. . Subjective/Interval History INTERVAL NOTE: The patient remains afebrile and somewhat encephalopathic. However, he is more alert now, and he is answering simple yes and no questions. He follows simple commands, but when I asked open-ended questions he is just mumbling. He denies pain. He had the HIDA scan today, and, although it is not yet completely done, there may be cholecystitis. . Family/friend interactions Unable to reach daughter with 2 phone calls this afternoon. . Advance Directives Living Will: Never completed Health Care Surrogate: Never completed Durable Power of Organizational Psychologist: Never completed Objective Vital Signs Date Time Temp Pulse Resp B/P (MAP) Pulse Ox O2 Delivery O2 Flow Rate FiO2 02/24/17 12:00 80 02/24/17 12:00 80 28 137/72 (93) 100 02/24/17 11:00 83 02/24/17 11:00 83 34 129/66 (87) 100 02/24/17 10:00 81 02/24/17 09:00 83 02/24/17 09:00 83 36 117/62 (80) 100 02/24/17 08:41 96 Nasal Cannula 2.00 02/24/17 08:00 81 02/24/17 08:00 98.1 81 36 112/62 (79) 100 02/24/17 06:00 84 02/24/17 04:00 88 02/24/17 04:00 98.4 88 23 130/67 (88) 100 02/24/17 02:00 84 02/24/17 00:00 98.4 85 47 124/61 (82) 100 02/24/17 00:00 85 02/23/17 22:00 82 02/23/17 20:23 100 Nasal Cannula 2.00 02/23/17 20:00 98.2 71 61 90/52 (65) 100 02/23/17 20:00 71 02/23/17 18:00 77 02/23/17 17:00 74 02/23/17 16:00 98.1 79 17 120/65 100 02/23/17 16:00 79 Intake & Output 10/17/17 10/17/17 07:00 19:00 Intake Total 1584 ml Output Total 50 ml Balance 1534 ml IV Total 803 ml Tube Feeding 581 ml Other 200 ml Output Urine Total 50 ml # Bowel Movements 1 Physical Exam CONSTITUTIONAL/GENERAL: This is an elderly, weak, confused patient, in no apparent distress. TUBES/LINES/DRAINS: Vas-Cath right neck, left subclavian line, supplemental oxygen, 4-point restraints, SCDs NECK: Trachea midline. Supple, nontender. No palpable thyroid enlargement or nodularity. CARDIOVASCULAR: Regular rate and rhythm without murmurs, gallops, or rubs. No JVD. Peripheral pulses symmetric. RESPIRATORY/CHEST: Symmetric, unlabored respirations. A few scattered rhonchi are present, breath sounds are diminished. GASTROINTESTINAL: Abdomen soft, non-tender, nondistended. No hepato-splenomegaly , or palpable masses. No guarding. Bowel sounds present. GENITOURINARY: Without palpable bladder distension. Scott catheter in place. MUSCULOSKELETAL: Extremities without clubbing, cyanosis, or edema. No joint tenderness or effusion noted. No calf tenderness. No mottling or clubbing. NEUROLOGICAL: Alert, follows simple commands, and answers yes/no questions. Mumbles. PSYCHIATRIC: Has been agitated and restless, pulling at lines and tubes, but more calm now . Diagnostic Tests Laboratory Laboratory Tests Test 02/22/17 04:00 02/22/17 21:09 02/23/17 06:00 02/23/17 12:20 White Blood Count 9.8 TH/MM3 (4.0-11.0) 10.3 TH/MM3 (4.0-11.0) Red Blood Count 3.34 MIL/MM3 (4.50-5.90) 3.12 MIL/MM3 (4.50-5.90) Hemoglobin 10.0 GM/DL (13.0-17.0) 9.3 GM/DL (13.0-17.0) Hematocrit 30.4 % (39.0-51.0) 28.3 % (39.0-51.0) Mean Corpuscular Volume 90.9 FL (80.0-100.0) 90.7 FL (80.0-100.0) Mean Corpuscular Hemoglobin 29.9 PG (27.0-34.0) 29.9 PG (27.0-34.0) Mean Corpuscular Hemoglobin Concent 32.9 % (32.0-36.0) 33.0 % (32.0-36.0) Red Cell Distribution Width 16.8 % (11.6-17.2) 16.6 % (11.6-17.2) Platelet Count 38 TH/MM3 (150-450) 37 TH/MM3 (150-450) Mean Platelet Volume 12.0 FL (7.0-11.0) 11.5 FL (7.0-11.0) Neutrophils (%) (Auto) 83.3 % (16.0-70.0) 84.1 % (16.0-70.0) Lymphocytes (%) (Auto) 9.6 % (9.0-44.0) 7.7 % (9.0-44.0) Monocytes (%) (Auto) 6.4 % (0.0-8.0) 7.5 % (0.0-8.0) Eosinophils (%) (Auto) 0.5 % (0.0-4.0) 0.3 % (0.0-4.0) Basophils (%) (Auto) 0.2 % (0.0-2.0) 0.4 % (0.0-2.0) Neutrophils # (Auto) 8.1 TH/MM3 (1.8-7.7) 8.6 TH/MM3 (1.8-7.7) Lymphocytes # (Auto) 0.9 TH/MM3 (1.0-4.8) 0.8 TH/MM3 (1.0-4.8) Monocytes # (Auto) 0.6 TH/MM3 (0-0.9) 0.8 TH/MM3 (0-0.9) Eosinophils # (Auto) 0.0 TH/MM3 (0-0.4) 0.0 TH/MM3 (0-0.4) Basophils # (Auto) 0.0 TH/MM3 (0-0.2) 0.0 TH/MM3 (0-0.2) CBC Comment AUTO DIFF AUTO DIFF Differential Comment AUTO DIFF CONFIRMED AUTO DIFF CONFIRMED Platelet Estimate LOW (NORMAL) LOW (NORMAL) Platelet Morphology Comment ENLARGED (NORMAL) NORMAL (NORMAL) Ovalocytes 1+ (NORMAL) 1+ (NORMAL) Blood Urea Nitrogen 77 MG/DL (7-18) 92 MG/DL (7-18) Creatinine 4.95 MG/DL (0.60-1.30) 5.93 MG/DL (0.60-1.30) Random Glucose 107 MG/DL (74-106) 180 MG/DL (74-106) Calcium Level 8.2 MG/DL (8.5-10.1) 8.3 MG/DL (8.5-10.1) Sodium Level 149 MEQ/L (136-145) 144 MEQ/L (136-145) Potassium Level 4.3 MEQ/L (3.5-5.1) 4.8 MEQ/L (3.5-5.1) Chloride Level 112 MEQ/L (98-107) 111 MEQ/L (98-107) Carbon Dioxide Level 18.5 MEQ/L (21.0-32.0) 17.0 MEQ/L (21.0-32.0) Anion Gap 19 MEQ/L (5-15) 16 MEQ/L (5-15) Estimat Glomerular Filtration Rate 14 ML/MIN (>89) 11 ML/MIN (>89) Prothrombin Time 28.6 SEC (9.8-11.6) 30.0 SEC (9.8-11.6) Prothromb Time International Ratio 2.5 RATIO 2.6 RATIO Activated Partial Thromboplast Time 46.9 SEC (24.3-30.1) 169.0 SEC (24.3-30.1) Fibrinogen 91 mg/dL (227-377) 96 mg/dL (227-377) D-Dimer Quantitative (PE/DVT) 12.14 MG/L FEU (0.00-0.50) [place] Cells 1+ (NORMAL) Test 02/23/17 23:09 02/24/17 04:17 Activated Partial Thromboplast Time 42.8 SEC (24.3-30.1) 40.6 SEC (24.3-30.1) White Blood Count 7.8 TH/MM3 (4.0-11.0) Red Blood Count 3.06 MIL/MM3 (4.50-5.90) Hemoglobin 9.3 GM/DL (13.0-17.0) Hematocrit 28.1 % (39.0-51.0) Mean Corpuscular Volume 91.8 FL (80.0-100.0) Mean Corpuscular Hemoglobin 30.3 PG (27.0-34.0) Mean Corpuscular Hemoglobin Concent 33.0 % (32.0-36.0) Red Cell Distribution Width 16.7 % (11.6-17.2) Platelet Count 48 TH/MM3 (150-450) Mean Platelet Volume 11.1 FL (7.0-11.0) Neutrophils (%) (Auto) 82.4 % (16.0-70.0) Lymphocytes (%) (Auto) 6.9 % (9.0-44.0) Monocytes (%) (Auto) 9.8 % (0.0-8.0) Eosinophils (%) (Auto) 0.7 % (0.0-4.0) Basophils (%) (Auto) 0.2 % (0.0-2.0) Neutrophils # (Auto) 6.4 TH/MM3 (1.8-7.7) Lymphocytes # (Auto) 0.5 TH/MM3 (1.0-4.8) Monocytes # (Auto) 0.8 TH/MM3 (0-0.9) Eosinophils # (Auto) 0.1 TH/MM3 (0-0.4) Basophils # (Auto) 0.0 TH/MM3 (0-0.2) CBC Comment AUTO DIFF Differential Comment AUTO DIFF CONFIRMED Ovalocytes 1+ (NORMAL) Prothrombin Time 23.5 SEC (9.8-11.6) Prothromb Time International Ratio 2.1 RATIO Fibrinogen 105 mg/dL (227-377) Blood Urea Nitrogen 70 MG/DL (7-18) Creatinine 4.75 MG/DL (0.60-1.30) Random Glucose 469 MG/DL (74-106) Calcium Level 8.0 MG/DL (8.5-10.1) Sodium Level 139 MEQ/L (136-145) Potassium Level 4.1 MEQ/L (3.5-5.1) Chloride Level 103 MEQ/L (98-107) Carbon Dioxide Level 19.7 MEQ/L (21.0-32.0) Anion Gap 16 MEQ/L (5-15) Estimat Glomerular Filtration Rate 14 ML/MIN (>89) Total Bilirubin 1.4 MG/DL (0.2-1.0) Direct Bilirubin 0.9 MG/DL (0.0-0.2) Indirect Bilirubin 0.5 MG/DL (0.0-0.8) Aspartate Amino Transf (AST/SGOT) 178 U/L (15-37) Alanine Aminotransferase (ALT/SGPT) 472 U/L (12-78) Alkaline Phosphatase 121 U/L (45-117) Total Protein 6.3 GM/DL (6.4-8.2) Albumin 2.8 GM/DL (3.4-5.0) Result Diagram: 02/24/17 0417 02/24/17 0417 Imaging Last Impressions Hepatobiliary Scan Nuclear Medicine 02/24/17 0000 Signed Impressions: Service Date/Time: Friday, February 24, 2017 12:33 - CONCLUSION: 1. Lack of visualization of the gallbladder. We will have the patient return for delayed imaging. At this point acute cholecystitis versus chronic cholecystitis. Dontrell Mcqueen Jr., MD Chest X-Ray 02/21/17 0600 Signed Impressions: Service Date/Time: Tuesday, February 21, 2017 04:36 - CONCLUSION: Bibasilar areas of suspected consolidation/atelectasis and effusion being worse on the right. The findings have worsened since the prior exam. Flakito Chan MD Liver Ultrasound 02/20/17 0000 Signed Impressions: Service Date/Time: Monday, February 20, 2017 10:51 - CONCLUSION: Gallstones and gallbladder wall thickening. There is no intrahepatic biliary duct dilatation. Rylan Wang MD FACR Head CT 02/19/17 1205 Signed Impressions: Service Date/Time: February 13:02 - CONCLUSION: 1. Cortical atrophy. 2. No acute abnormality identified. The examination is stable compared to prior dated 04/17/12. Sharath Wang MD Renal Ultrasound 02/19/17 0000 Signed Impressions: Service Date/Time: February 17:19 - CONCLUSION: No evidence of hydronephrosis. Indwelling Scott catheter with collapsed bladder in thickened bladder wall. Cal Tomlinson MD Procedures Left subclavian line 02/19/17 Vas-Cath placement 02/21/17 . Assessment and Plan Disease Oriented Problem List: (1) encephalopathy, likely due to multiple medical issues, sepsis, renal failure (2) acute renal failure, history of chronic kidney disease; possible ATN (3) elevated transaminases and abnormal HIDA scan Comment: May have cholecystitis, additional imaging pending (4) sepsis, negative culture so far (5) pneumonia on x-ray (6) uncontrolled diabetes (7) thrombocytopenia (8) cardiomyopathy, EF 25% (9) chronic kidney disease, creatinine 2.2 in 2012 (10) anemia (11) history of noncompliance (12) insulin-dependent diabetes (13) malnutrition, albumin 2.8 (14) history of DKA (15) hypertension (16) hyperlipidemia (17) DJD Symptom Scale: (1) agitation 0-10 Scale: Unable to quantify (2) encephalopathy 0-10 Scale: Unable to quantify Pertinent Non-Medical Issues Psychosocial: , 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 One daughter and 3 sons, estranged from the 3 sons. Spiritual: Not spiritual confucianism but daughter does want international editorial producer visits for him. Legal: The patient lacks capacity for decision-making, and it is uncertain whether he will regain that capacity. He has 4 children, but is estranged from his 3 sons, and they have thus far been unwilling to speak with us or participate in decision-making. Therefore, the patient's daughter Jakub Crawford is his proxy decision-maker. We have made it clear that we are available to speak with any of his sons if they call. Ethical issues impacting care: . Important Contacts Daughter/HCP: Jakub Crawford [phone] Granddaughter: Renae Rocha [phone] . Prognosis Overall, the patient's prognosis is poor. He now has multisystem organ failure or dysfunction, including renal, neuro, cardiac, pulmonary, hematologic, and he is quite lethargic/weak/encephalopathic. . Code Status: Full Code Plan * FULL CODE - daughter "wants to give him a chance" * DECISION-MAKING: The patient lacks capacity for decision-making, and it is uncertain whether he will regain that capacity. He has 4 children, but is estranged from his 3 sons, and they have thus far been unwilling to speak with us or participate in decision-making. Therefore, the patient's daughter Jakub Crawford is his proxy decision-maker. We have made it clear that we are available to speak with any of his sons if they call. * GOALS: The patient's daughter wants aggressive care, including mechanical ventilation if the patient has cardiac or respiratory failure. She "wants to give him a chance." She does understand that, with his multisystem involvement , he will be rendered quite weak and most likely dependent / for care. * SYMPTOMS: His encephalopathy is improving a little; I believe it would be advantageous to keep him off of any medications that could be sedating so we can see if his encephalopathy will continue to clear. He has no obvious pain or dyspnea at this time. * Palliative Care will continue to follow the patient during this hospitalization. . Time Spent Total Floor Time (mins): 36 Face to Face Time (mins): 12 >50% Counseling/Coord of Care: Yes (d/w RN) Attestation To help prompt me to consider important information that might be impacting today's encounter and assessment, information from prior notes written by myself or my colleagues may have been "brought forward" into today's note. My signature on this note, however, is an attestation that I personally performed the exam, history, and/or decision-making noted today, and, unless otherwise indicated, the interactions with patient, family, and staff as well as the review of records all occurred today. I also attest that the listed assessment and stated plan reflect my best clinical judgment today based on the combination of historical information, prior notes, and today's exam/ interactions. When time spent is documented, it refers only to time spent today by the signer, or if indicated, combined time spent today by collaborating physician/nurse practitioner. Shaneka Sandy MD Feb 24, 2017 15:47
[2017-02-25] VITALS (25 sets, daily range): BP systolic 107–166; BP diastolic 56–88; PULSE 71–80; RESP 14–30; TEMP 97.8–98.4; O2SAT 84–100
[2017-02-25] MEDS: RESP: ALBUTEROL 2.5 MG/IPRATROPIUM 0.5 MG NEB (SCH) INH ×12 (01:21→23:59)
[2017-02-25] MEDS: CHLORHEXIDINE GLUCONATE 2 % 1 PACK (2 CLOTHS) TOP SCH ×2 (02:34)
[2017-02-25 04:08] LABS: AUTOMATED NEUTROPHIL # 5.6 TH/MM3 (1.8-7.7); BASOPHIL % 0.2 % (0.0-2.0); EOSINOPHIL # 0.1 TH/MM3 (0-0.4); HEMATOCRIT 28.7 % (39.0-51.0); HEMOGLOBIN 9.5 GM/DL (13.0-17.0); LYMPH % 6.8 % (9.0-44.0); LYMPHOCYTE # 0.5 TH/MM3 (1.0-4.8); MEAN CELL VOLUME 90.1 FL (80.0-100.0); MEAN CORPUSCULAR HEMOGLOBIN 29.8 PG (27.0-34.0); MEAN CORPUSCULAR HGB CONC 33.1 % (32.0-36.0); MEAN PLATELET VOLUME 10.2 FL (7.0-11.0); MONO % 14.5 % (0.0-8.0); MONOCYTE # 1.1 TH/MM3 (0-0.9); NEUT % 76.5 % (16.0-70.0); PLATELET COUNT 62 TH/MM3 (150-450); RED BLOOD COUNT 3.18 MIL/MM3 (4.50-5.90); RED CELL DISTRIBUTION WIDTH 16.5 % (11.6-17.2); WHITE BLOOD COUNT 7.3 TH/MM3 (4.0-11.0)
[2017-02-25 04:16] LABS: INTERNATIONAL NORMALIZED RATIO 1.8 RATIO
[2017-02-25] MEDS: METOPROLOL TARTRATE 25 MG TAB PO SCH ×6 (04:27→20:53)
[2017-02-25] MEDS: metroNIDAZOLE 500 MG INJ 100 ML IV SCH ×6 (04:28→20:53)
[2017-02-25] MEDS: INSULIN ASPART SUPPLEMENTAL SCALE SQ SCH ×8 (08:00→21:00)
--- NOTE | 2017-02-25 08:01 | HHI.PR ---
Subjective Remarks in no acute distress. no change in mental status; mildly lethargic but easily arousable. afebrile. blood sugar trend noted. had some diarrhea over night. d/w the RN. Objective Vitals Vital Signs Date Time Temp Pulse Resp B/P (MAP) Pulse Ox O2 Delivery O2 Flow Rate FiO2 02/25/17 06:00 71 02/25/17 04:00 78 02/25/17 04:00 98.4 78 14 115/64 (81) 100 02/25/17 02:00 76 02/25/17 00:00 74 02/25/17 00:00 98.4 75 24 111/71 (84) 100 02/24/17 22:00 75 02/24/17 20:57 100 Nasal Cannula 2.00 02/24/17 20:00 98.6 78 13 122/66 (84) 100 02/24/17 20:00 78 02/24/17 18:00 74 02/24/17 18:00 74 7 118/56 (76) 100 02/24/17 17:00 72 02/24/17 17:00 72 9 123/67 (85) 100 02/24/17 16:00 97.8 74 22 119/63 (81) 100 02/24/17 16:00 74 02/24/17 15:05 80 23 129/67 (87) 02/24/17 15:05 80 02/24/17 12:00 80 02/24/17 12:00 80 28 137/72 (93) 100 02/24/17 11:00 83 02/24/17 11:00 83 34 129/66 (87) 100 02/24/17 10:00 81 02/24/17 09:00 83 02/24/17 09:00 83 36 117/62 (80) 100 02/24/17 08:41 96 Nasal Cannula 2.00 02/24/17 08:00 81 02/24/17 08:00 98.1 81 36 112/62 (79) 100 I/O 02/24/17 02/24/17 02/24/17 02/25/17 02/25/17 02/25/17 07:00 15:00 23:00 07:00 15:00 23:00 Intake Total 1484 ml 352 ml 1250 ml Output Total 50 ml 50 ml 50 ml Balance 1434 ml 302 ml 1200 ml IV Total 703 ml 350 ml Tube Feeding 581 ml 322 ml 700 ml Other 200 ml 30 ml 200 ml Output Urine Total 50 ml 50 ml 50 ml # Bowel Movements 1 3 1 Result Diagram: 02/25/17 0354 02/24/17 0417 Imaging Last Impressions Hepatobiliary Scan Nuclear Medicine 02/24/17 0000 Signed Impressions: Service Date/Time: Friday, February 24, 2017 12:33 - CONCLUSION: 1. Lack of visualization of the gallbladder. We will have the patient return for delayed imaging. At this point acute cholecystitis versus chronic cholecystitis. Dontrell Mcqueen Jr., MD Chest X-Ray 02/21/17 0600 Signed Impressions: Service Date/Time: Tuesday, February 21, 2017 04:36 - CONCLUSION: Bibasilar areas of suspected consolidation/atelectasis and effusion being worse on the right. The findings have worsened since the prior exam. Flakito Chan MD Liver Ultrasound 02/20/17 0000 Signed Impressions: Service Date/Time: Monday, February 20, 2017 10:51 - CONCLUSION: Gallstones and gallbladder wall thickening. There is no intrahepatic biliary duct dilatation. Rylan Wang MD FACR Head CT 02/19/17 1205 Signed Impressions: Service Date/Time: February 13:02 - CONCLUSION: 1. Cortical atrophy. 2. No acute abnormality identified. The examination is stable compared to prior dated 04/17/12. Sharath Wang MD Renal Ultrasound 02/19/17 0000 Signed Impressions: Service Date/Time: February 17:19 - CONCLUSION: No evidence of hydronephrosis. Indwelling Scott catheter with collapsed bladder in thickened bladder wall. Cal Tomlinson MD Objective Remarks GENERAL: in no acute distress HEENT; NG tube in place- pupils with minimal reaction to light bilaterally CARDIOVASCULAR: Regular rate and regular rhythm without murmurs, gallops, or rubs. RESPIRATORY: bilateral air entry present GASTROINTESTINAL: Abdomen soft, non-tender, nondistended. Normal, active bowel sounds MUSCULOSKELETAL: Extremities without clubbing, cyanosis, or edema. NEURO: mildly lethargic but easily arousable. Medications and IVs Current Medications IV Flush (NS Flush) 2 ml UNSCH PRN IV FLUSH FLUSH AFTER USING IV ACCESS; Start 02/19/17 at 12:15; Stop 02/19/17 at 16:15; Status DC Sodium Chloride 1,000 ml @ 1,000 mls/hr Q1H IV Last administered on 12:17; Start 02/19/17 at 12:05; Stop 02/19/17 at 13:04; Status DC Sodium Chloride 1,000 ml @ 999 mls/hr BOLUS ONCE IV Last administered on 12:18; Start 02/19/17 at 12:15; Stop 02/19/17 at 13:15; Status DC Insulin Human Regular (NovoLIN R INJ) 10 units ONCE ONCE IV PUSH Last administered on 02/19/17 12:23; Start 02/19/17 at 12:15; Stop 02/19/17 at 12 :16; Status DC Sodium Chloride 1,000 ml @ 999 mls/hr BOLUS ONCE IV Last administered on 13:25; Start 02/19/17 at 13:00; Stop 02/19/17 at 14:00; Status DC Sodium Chloride 1,000 ml @ 250 mls/hr Q4H IV Last administered on 02/19/17 14:36; Start 02/19/17 at 13:35; Stop 02/19/17 at 16:40; Status DC Dextrose/Sodium Chloride 1,000 ml @ 200 mls/hr Q5H IV ; Start 02/19/17 at 13: 35; Stop 02/20/17 at 00:07; Status DC Insulin Human Regular 100 units/ Sodium Chloride 100 ml @ 6.5 mls/hr TITRATE IV Last administered on 02/20/17 00:30; Start 02/19/17 at 15:00; Stop 02/20 at 09:24; Status DC Sodium Bicarbonate (Sodium Bicarbonate 8.4% Inj) 100 meq UNSCH PRN IV PUSH SEE LABEL COMMENTS; Start 02/19/17 at 13:45 Sodium Bicarbonate (Sodium Bicarbonate 8.4% Inj) 50 meq UNSCH PRN IV PUSH SEE LABEL COMMENTS; Start 02/19/17 at 13:45 Sodium Phosphate 15 mmol/Sodium Chloride 105 ml @ 25 mls/hr UNSCH PRN IV SEE LABEL COMMENTS; Start 02/19/17 at 13:45 Miscellaneous Information 1 Q361D XX ; Start 02/19/17 at 13:45; Stop 02/19/17 at 16:14; Status DC Chlorhexidine Gluconate (Chlorhexidine 2% Cloth) 3 pack Taper DAILY@04 TOP ; Start 02/20/17 at 04:00; Stop 02/20/17 at 04:00; Status DC Chlorhexidine Gluconate (Chlorhexidine 2% Cloth) 3 pack UNSCH PRN TOP HYGIENIC CARE; Start 02/19/17 at 13:45; Stop 02/19/17 at 16:14; Status DC Piperacillin Sod/ Tazobactam Sod 100 ml @ 200 mls/hr ONCE ONCE IV Last administered on 02/19/17 14:36; Start 02/19/17 at 14:30; Stop 02/19/17 at 14 :59; Status DC Vancomycin HCl 1000 mg/Sodium Chloride 250 ml @ 250 mls/hr ONCE ONCE IV Last administered on 02/19/17 14:36; Start 02/19/17 at 14:30; Stop 02/19/17 at 15 :29; Status DC Sodium Chloride (NS Flush) 2 ml UNSCH PRN IV FLUSH FLUSH AFTER USING IV ACCESS ; Start 02/19/17 at 14:15 Sodium Chloride (NS Flush) 2 ml BID IV FLUSH Last administered on 02/24/17 20 :17; Start 02/19/17 at 21:00 Pantoprazole Sodium (Protonix Inj) 40 mg DAILY IV PUSH Last administered on 09:00; Start 02/20/17 at 09:00 Albuterol/ Ipratropium (Duoneb Neb) 1 ampule Q6HR NEB INH Last administered on 02/22/17 10:35; Start 02/19/17 at 16:00; Stop 02/22/17 at 13:56; Status DC Albuterol/ Ipratropium (Duoneb Neb) 1 ampule Q4HR NEB PRN INH WHEEZING; Start 02/19/17 at 14:15; Stop 02/22/17 at 13:57; Status DC Heparin Sodium (Porcine) (Heparin Inj) 5,000 units Q12H SQ Last administered on 02/21/17 16:36; Start 02/19/17 at 17:00; Status Future Hold Miscellaneous Information 1 Q361D XX ; Start 02/19/17 at 14:15 Chlorhexidine Gluconate (Chlorhexidine 2% Cloth) Taper DAILY@04 TOP Last administered on 02/25/17 02:34; Start 02/20/17 at 04:00; Stop 02/16/18 at 03: 59 Chlorhexidine Gluconate (Chlorhexidine 2% Cloth) 3 pack UNSCH PRN TOP HYGIENIC CARE; Start 02/19/17 at 14:15 Senna/Docusate Sodium (Princess-Colace) 1 tab BID PO Last administered on 20:09; Start 02/19/17 at 21:00 Magnesium Hydroxide (Milk Of Magnesia Liq) 30 ml Q12H PRN PO MILD - MODERATE CONSTIPATION; Start 02/19/17 at 14:15 Sennosides (Senokot) 17.2 mg Q12H PRN PO MODERATE - SEVERE CONSTIPATION; Start 02/19/17 at 14:15 Bisacodyl (Dulcolax Supp) 10 mg DAILY PRN RECTAL SEVERE CONSITIPATION; Start 02/19/17 at 14:15 Lactulose (Lactulose Liq) 30 ml DAILY PRN PO SEVERE CONSITIPATION; Start 02/19 at 14:15 Aspirin (Aspirin Chew) 81 mg DAILY CHEW Last administered on 02/21/17 07:46; Start 02/19/17 at 15:15; Status Future Hold Piperacillin Sod/ Tazobactam Sod 50 ml @ 100 mls/hr Q6H IV Last administered on 02/22/17 21:10; Start 02/19/17 at 21:00; Stop 02/23/17 at 01:15; Status DC Sodium Chloride 1,000 ml @ 999 mls/hr BOLUS ONCE IV Last administered on 16:53; Start 02/19/17 at 16:15; Stop 02/19/17 at 17:15; Status DC Metoprolol Tartrate (Lopressor) 25 mg Q8HR PO Last administered on 02/25/17 04:27; Start 02/19/17 at 16:30 Sodium Chloride 1,000 ml @ 100 mls/hr Q10H IV Last administered on 02/19/17 17:22; Start 02/19/17 at 16:45; Stop 02/20/17 at 00:07; Status DC Sodium Bicarbonate (Sodium Bicarbonate 8.4% Inj) 50 meq ONCE ONCE IV PUSH Last administered on 02/19/17 16:50; Start 02/19/17 at 17:00; Stop 02/19/17 at 17:01; Status DC Sodium Chloride 1,000 ml @ 999 mls/hr BOLUS ONCE IV ; Start 02/19/17 at 17:00 ; Stop 02/19/17 at 18:00; Status DC Melatonin (Melatonin) 5 mg HS PRN PO SLEEP Last administered on 02/20/17 21: 45; Start 02/19/17 at 22:15 Potassium Chloride 100 ml @ 25 mls/hr BOLUS ONCE IV Last administered on 00:18; Start 02/20/17 at 00:15; Stop 02/20/17 at 04:14; Status DC Dextrose 1,000 ml @ 120 mls/hr Q8H20M IV Last administered on 02/20/17 08:59 ; Start 02/20/17 at 00:15; Stop 02/20/17 at 09:24; Status DC Miscellaneous Information 1 ONCE ONCE .XX ; Start 02/20/17 at 09:30; Stop at 10:06; Status DC Miscellaneous Information 1 ONCE ONCE .XX ; Start 02/20/17 at 09:30; Stop at 10:01; Status DC Insulin Detemir (Levemir Inj) 5 units Q12H SQ Last administered on 02/22/17 08:22; Start 02/20/17 at 09:30; Status Future Hold Insulin Aspart (NovoLOG INJ) 3 units TIDAC SQ Last administered on 02/22/17 08:00; Start 02/20/17 at 12:00; Status Future Hold Insulin Aspart (NovoLOG SUPPLEMENTAL SCALE) 1 ACHS SLIDING SCALE SQ Last administered on 02/20/17 21:31; Start 02/20/17 at 12:00; Stop 02/24/17 at 09 :01; Status DC Dextrose (D50w (Vial) Inj) 50 ml UNSCH PRN IV PUSH HYPOGLYCEMIA-SEE COMMENTS Last administered on 02/22/17 12:32; Start 02/20/17 at 09:30 Glucagon (Glucagon Inj) 1 mg UNSCH PRN OTHER HYPOGLYCEMIA-SEE COMMENTS; Start 02/20/17 at 09:30 Sodium Chloride 1,000 ml @ 60 mls/hr [id number] IV Last administered on 12:14; Start 02/20/17 at 09:30; Stop 02/22/17 at 13:47; Status DC Haloperidol Lactate (Haldol Inj) 2 mg Q4H PRN IV agitation; Start 02/20/17 at 09:45 Lorazepam (Ativan Inj) 1 mg Q6H PRN IV PUSH ANXIETY AND/OR AGITATION; Start at 08:00 Sodium Chloride 1,000 ml @ 0 mls/hr Q0M PRN OTHER For Prime & Rinse Back; Start 02/21/17 at 10:55 Heparin Sodium (Porcine) (Heparin Inj) 8,000 units UNSCH PRN IV FLUSH WITH DIALYSIS; Start 02/21/17 at 11:00 Sodium Chloride 1,000 ml @ 200 mls/hr Q5H PRN IV WITH DIALYSIS Last administered on 02/21/17 14:48; Start 02/21/17 at 10:55 Sodium Chloride 1,000 ml @ 0 mls/hr Q0M PRN OTHER WITH DIALYSIS; Start at 10:55 Mannitol (Mannitol Inj) 12.5 gm UNSCH PRN IV WITH DIALYSIS Last administered on 02/21/17 14:48; Start 02/21/17 at 11:00 Albumin Human 100 ml @ 60 mls/hr UNSCH PRN IV WITH DIALYSIS; Start 02/21/17 at 11:00 Sodium Chloride (NS Flush) 5 ml UNSCH PRN IV FLUSH WITH DIALYSIS; Start at 11:00 Heparin Sodium (Porcine) (Heparin Inj) UNSCH PRN .XX WITH DIALYSIS Last administered on 02/21/17 14:47; Start 02/21/17 at 11:00 Gentamicin Sulfate (Gentamicin (Dialysis) Inj) 20 mg UNSCH PRN OTHER WITH DIALYSIS Last administered on 02/23/17 12:21; Start 02/21/17 at 11:00 Ondansetron HCl (Zofran Inj) 4 mg UNSCH PRN IV PUSH WITH DIALYSIS; Start 02/21 at 11:00 Acetaminophen (Tylenol) 650 mg UNSCH PRN PO for headach, pain, temp > 101F; Start 02/21/17 at 11:00 Diphenhydramine HCl (Benadryl) 25 mg UNSCH PRN PO for hives/itching/anaphylaxis ; Start 02/21/17 at 11:00 Nitroglycerin (Nitrostat Sl) 0.4 mg UNSCH PRN SL CHEST PAIN; Start 02/21/17 at 11:00 Clonidine (Catapres) 0.1 mg UNSCH PRN PO for BP > 180/100 X 2 readings; Start 02/21/17 at 11:00 Gelatin (Gelfoam 12 Mm/7 Mm Top) 1 foam UNSCH PRN TOP SEE LABEL COMMENTS; Start 02/21/17 at 11:00 Midazolam HCl (Versed Inj) 5 mg STK-MED ONCE .ROUTE ; Start 02/21/17 at 12:47; Stop 02/21/17 at 12:48; Status DC Flumazenil (Romazicon Inj) 0.5 mg STK-MED ONCE .ROUTE ; Start 02/21/17 at 13:42 ; Stop 02/21/17 at 13:43; Status DC Flumazenil (Romazicon Inj) 0.5 mg STK-MED ONCE .ROUTE ; Start 02/21/17 at 13:42 ; Stop 02/21/17 at 13:43; Status DC Flumazenil (Romazicon Inj) 0.5 mg STAT ONCE IV ; Start 02/21/17 at 14:00; Stop 02/21/17 at 14:01; Status DC Albuterol/ Ipratropium (Duoneb Neb) 1 ampule Q4HR NEB INH Last administered on 02/25/17 04:09; Start 02/22/17 at 16:00 Albuterol/ Ipratropium (Duoneb Neb) 1 ampule Q2HR NEB PRN INH WHEEZING; Start 02/22/17 at 14:00 Dextrose 1,000 ml @ 42 mls/hr [id number] IV Last administered on 02/22/17 18:45 ; Start 02/22/17 at 18:45; Stop 02/23/17 at 11:20; Status DC Vancomycin HCl 1000 mg/Sodium Chloride 250 ml @ 250 mls/hr ONCE ONCE IV Last administered on 02/23/17 01:38; Start 02/23/17 at 01:30; Stop 02/23/17 at 02 :29; Status DC Metronidazole 100 ml @ 100 mls/hr Q8H IV Last administered on 02/25/17 04:28 ; Start 02/23/17 at 12:00 Levofloxacin/ Dextrose 50 ml @ 50 mls/hr Q24H IV Last administered on 11:00; Start 02/23/17 at 11:00 Sodium Chloride 154 meq/Dextrose 1,038.5 ml @ 20 mls/hr Q24H IV Last administered on 02/23/17 13:28; Start 02/23/17 at 12:00; Stop 02/24/17 at 00 :50; Status DC Dextrose 1,000 ml @ 42 mls/hr [id number] IV Last administered on 02/24/17 01:46 ; Start 02/24/17 at 01:00; Stop 02/24/17 at 04:39; Status DC Insulin Human Regular (NovoLIN R INJ) 10 units NOW ONCE IV PUSH Last administered on 02/24/17 05:01; Start 02/24/17 at 04:45; Stop 02/24/17 at 04 :47; Status DC Insulin Human Regular (NovoLIN R INJ) 10 units ONCE ONCE IV PUSH Last administered on 02/24/17 06:30; Start 02/24/17 at 06:15; Stop 02/24/17 at 06 :16; Status DC Dextrose (D50w (Vial) Inj) 50 ml UNSCH PRN IV PUSH HYPOGLYCEMIA-SEE COMMENTS; Start 02/24/17 at 08:30 Glucagon (Glucagon Inj) 1 mg UNSCH PRN OTHER HYPOGLYCEMIA-SEE COMMENTS; Start 02/24/17 at 08:30 Insulin Aspart (NovoLOG SUPPLEMENTAL SCALE) 1 ACHS SLIDING SCALE SQ Last administered on 02/24/17 20:17; Start 02/24/17 at 12:00 A/P Problem List: (1) Acute metabolic encephalopathy ICD Code: G93.41 - Metabolic encephalopathy (2) Altered mental status ICD Code: R41.82 - Altered mental status, unspecified Status: Acute (3) DKA (diabetic ketoacidoses) ICD Code: E13.10 - Other specified diabetes mellitus with ketoacidosis without coma Status: Acute (4) Non-STEMI (non-ST elevated myocardial infarction) ICD Code: I21.4 - Non-ST elevation (NSTEMI) myocardial infarction Status: Acute (5) Dehydration with hypernatremia ICD Code: E87.0 - Hyperosmolality and hypernatremia Status: Acute (6) Sepsis ICD Code: A41.9 - Sepsis, unspecified organism Status: Acute (7) UTI (urinary tract infection) ICD Code: N39.0 - Urinary tract infection, site not specified Status: Acute (8) Acute renal failure ICD Code: N17.9 - Acute kidney failure, unspecified Status: Acute (9) Hyperglycemia ICD Code: R73.9 - Hyperglycemia, unspecified Status: Acute (10) Lactic acidemia ICD Code: E87.2 - Acidosis (11) Transaminitis ICD Code: R74.0 - Nonspecific elevation of levels of transaminase and lactic acid dehydrogenase [LDH] (12) Respiratory insufficiency ICD Code: R06.89 - Other abnormalities of breathing Assessment and Plan A/P Acute encephalopathy -repeat CT head today. -Treat agitation with when necessary Haldol -continue to monitor. Respiratory insufficiency - keep on oxygen as needed to keep O2 sat >90% - DuoNeb every 6 hours when necessary. elevated troponin Hypertension cardiomyopathy -echo with EF 25% - Aspirin on hold due to thrombocytopenia. - Metoprolol 25 mg every 8 hours - Avoid statins due to transaminitis -evaluated by cardiology. Transaminitis possible cholecystitis -HIDA to be followed-up. -continue IV antibiotics. - Monitor liver enzymes -will consider GI evaluation Acute kidney injury superimposed on chronic kidney disease Severe dehydration Hyperkalemia - Baseline creatinine 1.8 to 2. Acute worsening secondary to severe dehydration and DKA - Monitor renal function closely. -HD initiated. - Nephrology following. Probable sepsis probable cholecystitis UTI -- one bottle of the blood cultures with staph coag. negative-likely contamination. -ID consult appreciated and started on Levaquin and Flagyl. -HIDA to be followed. diarrhea- check the stool for c-diff. Anemia thrombocytopenia-better today- possible DIC?- -hold heparin and aspirin -hematology following. -Monitor CBC. DKA-resolved hypoglycemic episodes- this has resolved. -NG tube in place and started on Nepro. -continue sliding scale coverage. -start on low dose levemir -continue to monitor and adjust the regimen as needed. PROPH: - Bilateral lower extremity SCDs. hold Heparin as noted above. - continue Protonix. patient is ill looking with multiple comorbidities. palliative care following. continue to monitor in ICU. d/w the RN. Problem Qualifiers (1) Altered mental status: Qualified Codes: R41.82 - Altered mental status, unspecified (2) DKA (diabetic ketoacidoses): (3) Sepsis: Qualified Codes: A41.9 - Sepsis, unspecified organism (4) UTI (urinary tract infection): (5) Acute renal failure: Qualified Codes: N17.9 - Acute kidney failure, unspecified Orion Braden MD Feb 25, 2017 08:01
[2017-02-25] MEDS: SODIUM CHLORIDE 0.9% FLUSH 10 ML FLUSH IV FLUSH SCH ×4 (09:00→21:00)
[2017-02-25] MEDS: INSULIN DETEMIR 100 UNITS/ML VIAL SQ SCH ×4 (09:00→20:53)
[2017-02-25] MEDS: PANTOPRAZOLE SODIUM 40 MG VIAL IV PUSH SCH ×2 (09:08)
[2017-02-25] MEDS: DOCUSATE SODIUM 50 MG/SENNA 8.6 MG TAB PO SCH ×4 (09:08→20:53)
--- NOTE | 2017-02-25 09:30 | HHI.IDPN ---
Subjective Subjective Remarks Patient is a 77-year-old male, admitted to the hospital, after he was found down in his apartment. He was apparently last seen about 3 days prior to admission, and he was in his usual self. EMS was called, and patient had very high blood sugar, looked clinically dehydrated, and was tachypneic. His laboratory data showed acute renal failure with a creatinine of 5.3. His WBC was normal, hemoglobin 10.6, and platelet count was 97. Prior creatinine level was between 1.8-2. His AST and ALT are also elevated. CT of the head was negative. Chest x-ray was normal. Renal ultrasound did not show any evidence of hydronephrosis. Urinalysis was unremarkable. His lactic acid was elevated. Patient was started on broad-spectrum antibiotics. His urine output remains low, and the patient started on hemodialysis. Patient has received fluid resuscitation with minimal improvement in his creatinine. 1 out of the 2 blood cultures is now reported as coag-negative staph. Patient also since admission has developed progressive worsening of his thrombocytopenia. He had been on Zosyn, and he received one dose of vancomycin today. Patient also had an ultrasound of the liver which showed evidence of gallstones, and gallbladder wall thickening, but no evidence of pericholecystic fluid. Patient is afebrile. His blood pressure is okay. He is on nasal O2. Infectious disease consultation has been requested to evaluate the patient with positive blood culture. Notes reviewed Temps ok Initial HIDA scan (+) - to have delayed imaging BP ok Last HD 02/23 Having diarrhea Platelets better WBC normal No new (+) BC Antibiotics Levaquin Flagyl I attest that I obtained, updated or reviewed the home and current medications. Current Medications Medications (Trade) Dose Ordered Sig/Fede Route PRN Reason Start Time Stop Time Status Last Admin Dose Admin Sodium Chloride (NS Flush) 2 ml BID IV FLUSH 02/19/17 21:00 02/25/17 09:00 Pantoprazole Sodium (Protonix Inj) 40 mg DAILY IV PUSH 02/20/17 09:00 02/25/17 09:08 Heparin Sodium (Porcine) (Heparin Inj) 5,000 units Q12H SQ 02/19/17 17:00 Future Hold 02/21/17 16:36 Chlorhexidine Gluconate (Chlorhexidine 2% Cloth) Taper DAILY@04 TOP 02/20/17 04:00 02/16/18 03:59 02/25/17 02:34 Senna/Docusate Sodium (Princess-Colace) 1 tab BID PO 02/19/17 21:00 02/25/17 09:08 Aspirin (Aspirin Chew) 81 mg DAILY CHEW 02/19/17 15:15 Future Hold 02/21/17 07:46 Metoprolol Tartrate (Lopressor) 25 mg Q8HR PO 02/19/17 16:30 02/25/17 13:17 Melatonin (Melatonin) 5 mg HS PRN PO SLEEP 02/19/17 22:15 02/20/17 21:45 Insulin Detemir (Levemir Inj) 5 units Q12H SQ 02/20/17 09:30 Future Hold 02/22/17 08:22 Insulin Aspart (NovoLOG INJ) 3 units TIDAC SQ 02/20/17 12:00 Future Hold 02/22/17 08:00 Dextrose (D50w (Vial) Inj) 50 ml UNSCH PRN IV PUSH HYPOGLYCEMIA-SEE COMMENTS 02/20/17 09:30 02/22/17 12:32 Sodium Chloride 1,000 ml @ 200 mls/hr Q5H PRN IV WITH DIALYSIS 02/21/17 10:55 02/21/17 14:48 Mannitol (Mannitol Inj) 12.5 gm UNSCH PRN IV WITH DIALYSIS 02/21/17 11:00 02/21/17 14:48 Albumin Human 100 ml @ 60 mls/hr UNSCH PRN IV WITH DIALYSIS 02/21/17 11:00 02/25/17 13:37 Heparin Sodium (Porcine) (Heparin Inj) UNSCH PRN .XX WITH DIALYSIS 02/21/17 11:00 02/25/17 13:37 Gentamicin Sulfate (Gentamicin (Dialysis) Inj) 20 mg UNSCH PRN OTHER WITH DIALYSIS 02/21/17 11:00 02/25/17 13:38 Albuterol/ Ipratropium (Duoneb Neb) 1 ampule Q4HR NEB INH 02/22/17 16:00 02/25/17 09:01 Metronidazole 100 ml @ 100 mls/hr Q8H IV 02/23/17 12:00 02/25/17 12:00 Levofloxacin/ Dextrose 50 ml @ 50 mls/hr Q24H IV 02/23/17 11:00 02/25/17 11:00 Insulin Aspart (NovoLOG SUPPLEMENTAL SCALE) 1 ACHS SLIDING SCALE SQ 02/24/17 12:00 02/25/17 12:00 Insulin Detemir (Levemir Inj) 5 units Q12HR SQ 02/25/17 09:00 02/25/17 09:00 Lactobacillus Acidophilus (Lactinex) 1 tab TID PO 02/25/17 13:00 02/25/17 13:00 Lines LSC TLC RIJ vascath Past Medical History Type 2 diabetes Hypertension Dyslipidemia Possible developmental delay Past Surgical History Cataract extraction Dental extraction Appendectomy Allergies: Coded Allergies: No Known Allergies (Verified , 02/19/17) Objective . Vital Signs Date Time Temp Pulse Resp B/P (MAP) Pulse Ox O2 Delivery O2 Flow Rate FiO2 02/25/17 09:01 100 02/25/17 06:00 71 02/25/17 04:00 78 02/25/17 04:00 98.4 78 14 115/64 (81) 100 02/25/17 02:00 76 02/25/17 00:00 74 02/25/17 00:00 98.4 75 24 111/71 (84) 100 02/24/17 22:00 75 02/24/17 20:57 100 Nasal Cannula 2.00 02/24/17 20:00 98.6 78 13 122/66 (84) 100 02/24/17 20:00 78 02/24/17 18:00 74 02/24/17 18:00 74 7 118/56 (76) 100 02/24/17 17:00 72 02/24/17 17:00 72 9 123/67 (85) 100 02/24/17 16:00 97.8 74 22 119/63 (81) 100 02/24/17 16:00 74 02/24/17 15:05 80 23 129/67 (87) 02/24/17 15:05 80 02/24/17 12:00 80 02/24/17 12:00 80 28 137/72 (93) 100 02/24/17 11:00 83 02/24/17 11:00 83 34 129/66 (87) 100 02/24/17 10:00 81 . Laboratory Tests Test 02/24/17 04:17 02/25/17 03:54 White Blood Count 7.8 TH/MM3 7.3 TH/MM3 Red Blood Count 3.06 MIL/MM3 3.18 MIL/MM3 Hemoglobin 9.3 GM/DL 9.5 GM/DL Hematocrit 28.1 % 28.7 % Mean Corpuscular Volume 91.8 FL 90.1 FL Mean Corpuscular Hemoglobin 30.3 PG 29.8 PG Mean Corpuscular Hemoglobin Concent 33.0 % 33.1 % Red Cell Distribution Width 16.7 % 16.5 % Platelet Count 48 TH/MM3 62 TH/MM3 Mean Platelet Volume 11.1 FL 10.2 FL Neutrophils (%) (Auto) 82.4 % 76.5 % Lymphocytes (%) (Auto) 6.9 % 6.8 % Monocytes (%) (Auto) 9.8 % 14.5 % Eosinophils (%) (Auto) 0.7 % 2.0 % Basophils (%) (Auto) 0.2 % 0.2 % Neutrophils # (Auto) 6.4 TH/MM3 5.6 TH/MM3 Lymphocytes # (Auto) 0.5 TH/MM3 0.5 TH/MM3 Monocytes # (Auto) 0.8 TH/MM3 1.1 TH/MM3 Eosinophils # (Auto) 0.1 TH/MM3 0.1 TH/MM3 Basophils # (Auto) 0.0 TH/MM3 0.0 TH/MM3 CBC Comment AUTO DIFF DIFF FINAL Differential Comment AUTO DIFF CONFIRMED Ovalocytes 1+ Laboratory Tests Test 02/24/17 04:17 Blood Urea Nitrogen 70 MG/DL Creatinine 4.75 MG/DL Random Glucose 469 MG/DL Calcium Level 8.0 MG/DL Sodium Level 139 MEQ/L Potassium Level 4.1 MEQ/L Chloride Level 103 MEQ/L Carbon Dioxide Level 19.7 MEQ/L Anion Gap 16 MEQ/L Estimat Glomerular Filtration Rate 14 ML/MIN Total Bilirubin 1.4 MG/DL Direct Bilirubin 0.9 MG/DL Indirect Bilirubin 0.5 MG/DL Aspartate Amino Transf (AST/SGOT) 178 U/L Alanine Aminotransferase (ALT/SGPT) 472 U/L Alkaline Phosphatase 121 U/L Total Protein 6.3 GM/DL Albumin 2.8 GM/DL Imaging Last Impressions Hepatobiliary Scan Nuclear Medicine 02/24/17 0000 Signed Impressions: Service Date/Time: Friday, February 24, 2017 12:33 - CONCLUSION: 1. Lack of visualization of the gallbladder. We will have the patient return for delayed imaging. At this point acute cholecystitis versus chronic cholecystitis. Dontrell Mcqueen Jr., MD Chest X-Ray 02/21/17 0600 Signed Impressions: Service Date/Time: Tuesday, February 21, 2017 04:36 - CONCLUSION: Bibasilar areas of suspected consolidation/atelectasis and effusion being worse on the right. The findings have worsened since the prior exam. Flakito Chan MD Liver Ultrasound 02/20/17 0000 Signed Impressions: Service Date/Time: Monday, February 20, 2017 10:51 - CONCLUSION: Gallstones and gallbladder wall thickening. There is no intrahepatic biliary duct dilatation. Rylan Wang MD FACR Head CT 02/19/17 1205 Signed Impressions: Service Date/Time: February 13:02 - CONCLUSION: 1. Cortical atrophy. 2. No acute abnormality identified. The examination is stable compared to prior dated 04/17/12. Sharath Wang MD Renal Ultrasound 02/19/17 0000 Signed Impressions: Service Date/Time: February 17:19 - CONCLUSION: No evidence of hydronephrosis. Indwelling Scott catheter with collapsed bladder in thickened bladder wall. Cal Tomlinson MD Physical Exam GENERAL: awake and alert, not in respiratory distress. Following all commands SKIN: Cool and moist. No generalized rash, no ecchymoses and no evidence of embolic lesions. HEAD: Atraumatic. Normocephalic. No temporal wasting, or tenderness. EYES: [place] conjunctiva. No petechia or hemorrhage. Extraocular movements full and intact. No scleral icterus. No injection or drainage. EARS, NOSE AND THROAT: Nose without bleeding or purulent nasal discharge. Did not cooperate and Im unable to examine his oropharynx NECK: Trachea midline. Supple and not tender, no meningeal signs CARDIOVASCULAR: Regular rate and rhythm. No murmurs, rubs or gallops heard RESPIRATORY: Clear to auscultation, but decreased at the bases. Breath sounds equal bilaterally. No rales, wheezing or rhonchi ABDOMEN: Soft, nondistended, bowel sounds present and normoactive. Mild tenderness oneil on R side during palpation, no guarding. No rebound. No organomegaly. EXTREMITIES: No clubbing, cyanosis, or edema.No joint effusion, has good ROM. No calf tenderness. Well perfused and warm. NEUROLOGICAL: Awake and alert. 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 Moves both LE. No Babinski PSYCHIATRIC: calm and cooperative. LINE: No evidence of infection Assessment & Plan Remarks IMPRESSION One (+) BC with Coag Neg Staph C/W contaminant Possible sepsis on admission, source? - CXR clear, UA ok - ?biliary tree, has elevated LFT, R side tenderness, GB wall thickening and gallstones - prelim (+) MARBELLA scan - also now with diarrhea, R/O C diff Acute renal failure, on CKD Baseline ?mental delay - he is following all commands, knows his age, knows he is at [facility] Thrombocytopenia, better - ?Abx - DIC screen (+) Bilateral infiltrates likely fluid overload RECOMMENDATION Continue Levaquin and Flagyll for biliary coverage Follow LFT Follow platelet count - heme following Agree with nchecking C diff Add lactinex Monitor progress Follow C/S D/W Sugar Martinez MD Feb 25, 2017 09:30
--- NOTE | 2017-02-25 10:19 | HHI.NPPN ---
Subjective General Problems: [place]eb[place] Acidosis Renal Failure: Chronic, Acute Interval History He is awake, slightly more alert and aware but continues to mumble. Scott has been converted to condom catheter, remains oliguric. Bladder scan is not showing retained urine. (Gely Dill) Review of Systems General General Remarks unable to evaluate (Gely Dill) Objective Data Data Vital Signs Date Time Temp Pulse Resp B/P (MAP) Pulse Ox O2 Delivery O2 Flow Rate FiO2 02/25/17 09:01 100 02/25/17 06:00 71 02/25/17 04:00 78 02/25/17 04:00 98.4 78 14 115/64 (81) 100 02/25/17 02:00 76 02/25/17 00:00 74 02/25/17 00:00 98.4 75 24 111/71 (84) 100 02/24/17 22:00 75 02/24/17 20:57 100 Nasal Cannula 2.00 02/24/17 20:00 98.6 78 13 122/66 (84) 100 02/24/17 20:00 78 02/24/17 18:00 74 02/24/17 18:00 74 7 118/56 (76) 100 02/24/17 17:00 72 02/24/17 17:00 72 9 123/67 (85) 100 02/24/17 16:00 97.8 74 22 119/63 (81) 100 02/24/17 16:00 74 02/24/17 15:05 80 23 129/67 (87) 02/24/17 15:05 80 02/24/17 12:00 80 02/24/17 12:00 80 28 137/72 (93) 100 02/24/17 11:00 83 02/24/17 11:00 83 34 129/66 (87) 100 (Gely Dill) -: 02/25/17 0354 02/24/17 0417 Imaging Last Impressions Hepatobiliary Scan Nuclear Medicine 02/24/17 0000 Signed Impressions: Service Date/Time: Friday, February 24, 2017 12:33 - CONCLUSION: 1. Lack of visualization of the gallbladder. We will have the patient return for delayed imaging. At this point acute cholecystitis versus chronic cholecystitis. Dontrell Mcqueen Jr., MD Chest X-Ray 02/21/17 0600 Signed Impressions: Service Date/Time: Tuesday, February 21, 2017 04:36 - CONCLUSION: Bibasilar areas of suspected consolidation/atelectasis and effusion being worse on the right. The findings have worsened since the prior exam. Flakito Chan MD Liver Ultrasound 02/20/17 0000 Signed Impressions: Service Date/Time: Monday, February 20, 2017 10:51 - CONCLUSION: Gallstones and gallbladder wall thickening. There is no intrahepatic biliary duct dilatation. Rylan Wang MD FACR Head CT 02/19/17 1205 Signed Impressions: Service Date/Time: February 13:02 - CONCLUSION: 1. Cortical atrophy. 2. No acute abnormality identified. The examination is stable compared to prior dated 04/17/12. Sharath Wang MD Renal Ultrasound 02/19/17 0000 Signed Impressions: Service Date/Time: February 17:19 - CONCLUSION: No evidence of hydronephrosis. Indwelling Scott catheter with collapsed bladder in thickened bladder wall. Cal Tomlinson MD Tubes & Lines: Vas-Cath, Scott Tubes & Lines Comment NG tube Drip Comment None (Gely Dill) Physical Exam General Appearance: No Acute Distress, Comfortable, Malnourished Appearance Remarks Disheveled, mumbles to questions (Gely Dill) Eyes Eye Exam: Pupils Equal (Gely Dill) Throat Throat Exam: Oral Mucosa [place] & Moist (Gely Dill SLIP SEAT COVERER) Pulmonary Resp Exam: Clear Bilaterally, Breath Sounds Equal (Gely Dill BNick SLIP SEAT COVERER) Cardiology CV Exam: Regular, Normal Sinus Rhythm (Gely DillP) Gastrointestinal/Abdomen GI Exam: Soft, Non-Tender, Bowel Sounds Present (Gely Dill) Genitourinary Exam: Bladder Non-Palpable (Gely Dill) Musculoskeletal MS Exam: Joints Intact, Normal Tone, Unable to Ambulate (Gely DillP) Integumentary Skin Exam: Clear, Warm, Dry, Intact (Gely Dill) Extremeties Extremities Exam: No Edema, Pedal Pulses Palpable (Gely Dill) Neurologic Neuro Exam: Awake, Moving All Extremities Neuro Remarks incomprehensible speech (Gely Dill) Assessment/Plan Assessment Summary: HERVE/Acute Renal Failure, Acute Tubular Necrosis, Diabetes Mellitus Electrolyte Assessment: Metabolic Acidosis Problem List: (1) Acute renal failure ICD Codes: N17.9 - Acute kidney failure, unspecified Status: Acute Plan: This patient has underlying renal impairment, creatinine 1.8-2 at baseline He has 1.2 g proteinuria, which 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 HERVE due to ATN secondary to dehydration, sepsis, and DKA Vascath placed and HD started 02/21, on HD as needed Due today for dialysis He is oliguric, monitor output and await recovery phase Scott removed or dislodged, unsure, has a condom cath, bladder scan not showing retention Repeat labs have been sent Off IVF, needs enteral nutrition, ordered Nepro after HIDA is complete Avoid nephrotoxic agents Palliative care is following to address goals of care (2) DKA (diabetic ketoacidoses) ICD Codes: E13.10 - Other specified diabetes mellitus with ketoacidosis without coma Status: Acute Plan: DKA resolved, difficulty controlling glucose, has episodes of hypoglycemia, blood sugar 300s this morning continue to adjust insulin with primary team. (3) Sepsis ICD Codes: A41.9 - Sepsis, unspecified organism Status: Acute Plan: Elevated lactic acid He is on flagyl and levaquin 1/2 blood cultures with staph hominis, likely contaminant HIDA scan taken, unable to visualize GB, acute vs chronic merissa, repeat HIDA ordered (4) Elevated troponin ICD Codes: R74.8 - Abnormal levels of other serum enzymes Plan: cardiology has evaluated suspect demand ischemia as etiology of elevated troponin levels 2D echo shows EF 25% (5) Dehydration with hypernatremia ICD Codes: E87.0 - Hyperosmolality and hypernatremia Status: Acute Plan: Corrected, monitor for recurrence Plan (Gely Dill) Plan patient was seen and examined. He has become oliguric. Continue dialysis support. Mental status has improved slightly. Hemodynamically stable. Hyperglycemic this morning. (Mc Quintanilla MD) Problem Qualifiers (1) Acute renal failure: Qualified Codes: N17.9 - Acute kidney failure, unspecified (2) DKA (diabetic ketoacidoses): (3) Sepsis: Qualified Codes: A41.9 - Sepsis, unspecified organism Gely Dill Feb 25, 2017 10:19 Mc Quintanilla MD Feb 25, 2017 21:54
[2017-02-25] MEDS: LEVOFLOXACIN 250 MG PREMIX INJ 50 ML IV SCH ×2 (11:00)
[2017-02-25 11:42] LABS: ALBUMIN 2.5 GM/DL (3.4-5.0); DIRECT BILIRUBIN ADULT 0.8 MG/DL (0.0-0.2)
[2017-02-25 11:44] LABS: ALBUMIN 2.6 GM/DL (3.4-5.0); BICARBONATE 22.7 MEQ/L (21.0-32.0); CALCIUM 8.2 MG/DL (8.5-10.1); CREATININE 5.67 MG/DL (0.60-1.30); INDIRECT BILIRUBIN 0.3 MG/DL (0.0-0.8); PHOSPHORUS 4.3 MG/DL (2.5-4.9); TOTAL BILIRUBIN ADULT 1.1 MG/DL (0.2-1.0); TOTAL PROTEIN 6.3 GM/DL (6.4-8.2)
--- NOTE | 2017-02-25 11:54 | RADRPT ---
EXAM DATE/TIME: 02/25/2017 11:31 [place] COMPARISON: CT BRAIN W/O CONTRAST, February 19, 2017, 13:02. INDICATIONS : Altered mental status. RADIATION DOSE: 56.40 CTDIvol (mGy) MEDICAL HISTORY : Hypertension. Diabetes mellitus type 2. SURGICAL HISTORY : Appendectomy. ENCOUNTER: Initial ACUITY: 1 day PAIN SCALE: 0/10 LOCATION: cranial TECHNIQUE: Multiple contiguous axial images were obtained of the head. Using automated exposure control and adj ustment of the mA and/or kV according to patient size, radiation dose was kept as low as reasonably a chievable to obtain optimal diagnostic quality images. DICOM format image data is available electro nically for review and comparison. FINDINGS: There is marked central and cortical atrophy with dilatation of ventricular and sulcal spaces. There is no parenchymal hemorrhage, acute infarction or mass lesion identified. There are no extra-axial fluid collections appreciated. The posterior fossa is unremarkable with midline fourth ventricle. T he portion of the orbits and paranasal sinuses visualized are unremarkable. CONCLUSION: Negative for an acute process. Rylan Wang MD FACR on February 25, 2017 at 11:51 Board Certified Radiologist. This report was verified electronically.
[2017-02-25] MEDS: LACTOBACILLUS ACIDOPHILUS TAB PO SCH ×4 (13:00→19:32)
[2017-02-25] MEDS: ALBUMIN 25% INJ 100 ML IV PRN ×2 (13:37)
[2017-02-25] MEDS: HEPARIN SODIUM - IV 10,000 UNITS/10 ML VIAL PRN ×2 (13:37)
[2017-02-25] MEDS: GENTAMICIN SULFATE (DIALYSIS USE ONLY) 20 MG/2 ML VIAL OTHER PRN ×2 (13:38)
--- NOTE | 2017-02-25 14:50 | HHI.HCPN ---
Reason for visit a. To assist with evaluation and management of symptoms including: Agitation, restlessness, encephalopathy b. To assist medical decision maker(s) with: better understanding of current medical conditions; weighing benefits/burdens of medical treatment options; making medical treatment decisions. . Subjective/Interval History INTERVAL NOTE: The patient remains afebrile and encephalopathic. The past couple days, he is a bit more alert, and he is answering simple yes and no questions. He follows simple commands, but when I asked open-ended questions he continues to just mumble. He denies pain, specifically any abdominal pain. He had the follow-up HIDA scan today, and it appears there is evidence for chronic cholecystitis. A repeat CT scan today does not reveal any acute findings. . Family/friend interactions Skin unable to reach the patient's daughter on 2 attempts, and there is no voicemail . Advance Directives Living Will: Never completed Health Care Surrogate: Never completed Durable Power of Extruder: Never completed Objective Vital Signs Date Time Temp Pulse Resp B/P (MAP) Pulse Ox O2 Delivery O2 Flow Rate FiO2 02/25/17 14:15 72 02/25/17 14:00 73 02/25/17 13:15 74 02/25/17 13:15 74 18 166/88 (114) 100 02/25/17 13:08 76 22 137/74 (95) 100 02/25/17 13:08 76 02/25/17 12:23 78 25 118/71 (87) 99 02/25/17 12:23 78 02/25/17 10:00 79 25 100 02/25/17 10:00 79 02/25/17 09:01 100 02/25/17 08:00 74 02/25/17 08:00 74 17 119/66 (83) 100 02/25/17 06:00 71 02/25/17 04:00 78 02/25/17 04:00 98.4 78 14 115/64 (81) 100 02/25/17 02:00 76 02/25/17 00:00 74 02/25/17 00:00 98.4 75 24 111/71 (84) 100 02/24/17 22:00 75 02/24/17 20:57 100 Nasal Cannula 2.00 02/24/17 20:00 98.6 78 13 122/66 (84) 100 02/24/17 20:00 78 02/24/17 18:00 74 02/24/17 18:00 74 7 118/56 (76) 100 02/24/17 17:00 72 02/24/17 17:00 72 9 123/67 (85) 100 02/24/17 16:00 97.8 74 22 119/63 (81) 100 02/24/17 16:00 74 02/24/17 15:05 80 23 129/67 (87) 02/24/17 15:05 80 Intake & Output 02/25/17 02/25/17 06:59 18:59 Intake Total 1250 ml 200 ml Output Total 50 ml Balance 1200 ml 200 ml IV Total 350 ml 200 ml Tube Feeding 700 ml Other 200 ml Output Urine Total 50 ml # Bowel Movements 1 Physical Exam CONSTITUTIONAL/GENERAL: This is an elderly, weak, confused patient, in no apparent distress. TUBES/LINES/DRAINS: Vas-Cath right neck, left subclavian line, supplemental oxygen, 4-point restraints, SCDs NECK: Trachea midline. Supple, nontender. No palpable thyroid enlargement or nodularity. CARDIOVASCULAR: Regular rate and rhythm without murmurs, gallops, or rubs. No JVD. Peripheral pulses symmetric. RESPIRATORY/CHEST: Symmetric, unlabored respirations. A few scattered rhonchi are present, breath sounds are diminished. GASTROINTESTINAL: Abdomen soft, non-tender, nondistended. No hepato-splenomegaly , or palpable masses. No guarding. Bowel sounds present. GENITOURINARY: Without palpable bladder distension. Scott catheter in place. MUSCULOSKELETAL: Extremities without clubbing, cyanosis, or edema. No joint tenderness or effusion noted. No calf tenderness. No mottling or clubbing. NEUROLOGICAL: Alert, follows simple commands, and answers yes/no questions. Mumbles. PSYCHIATRIC: Has been agitated and restless, pulling at lines and tubes, but more calm now . Diagnostic Tests Laboratory Laboratory Tests Test 02/22/17 21:09 02/23/17 06:00 02/23/17 12:20 02/23/17 23:09 Prothrombin Time 28.6 SEC (9.8-11.6) 30.0 SEC (9.8-11.6) Prothromb Time International Ratio 2.5 RATIO 2.6 RATIO Activated Partial Thromboplast Time 46.9 SEC (24.3-30.1) 169.0 SEC (24.3-30.1) 42.8 SEC (24.3-30.1) Fibrinogen 91 mg/dL (227-377) 96 mg/dL (227-377) D-Dimer Quantitative (PE/DVT) 12.14 MG/L FEU (0.00-0.50) White Blood Count 10.3 TH/MM3 (4.0-11.0) Red Blood Count 3.12 MIL/MM3 (4.50-5.90) Hemoglobin 9.3 GM/DL (13.0-17.0) Hematocrit 28.3 % (39.0-51.0) Mean Corpuscular Volume 90.7 FL (80.0-100.0) Mean Corpuscular Hemoglobin 29.9 PG (27.0-34.0) Mean Corpuscular Hemoglobin Concent 33.0 % (32.0-36.0) Red Cell Distribution Width 16.6 % (11.6-17.2) Platelet Count 37 TH/MM3 (150-450) Mean Platelet Volume 11.5 FL (7.0-11.0) Neutrophils (%) (Auto) 84.1 % (16.0-70.0) Lymphocytes (%) (Auto) 7.7 % (9.0-44.0) Monocytes (%) (Auto) 7.5 % (0.0-8.0) Eosinophils (%) (Auto) 0.3 % (0.0-4.0) Basophils (%) (Auto) 0.4 % (0.0-2.0) Neutrophils # (Auto) 8.6 TH/MM3 (1.8-7.7) Lymphocytes # (Auto) 0.8 TH/MM3 (1.0-4.8) Monocytes # (Auto) 0.8 TH/MM3 (0-0.9) Eosinophils # (Auto) 0.0 TH/MM3 (0-0.4) Basophils # (Auto) 0.0 TH/MM3 (0-0.2) CBC Comment AUTO DIFF Differential Comment AUTO DIFF CONFIRMED Platelet Estimate LOW (NORMAL) Platelet Morphology Comment NORMAL (NORMAL) Ovalocytes 1+ (NORMAL) Liat Cells 1+ (NORMAL) Blood Urea Nitrogen 92 MG/DL (7-18) Creatinine 5.93 MG/DL (0.60-1.30) Random Glucose 180 MG/DL (74-106) Calcium Level 8.3 MG/DL (8.5-10.1) Sodium Level 144 MEQ/L (136-145) Potassium Level 4.8 MEQ/L (3.5-5.1) Chloride Level 111 MEQ/L (98-107) Carbon Dioxide Level 17.0 MEQ/L (21.0-32.0) Anion Gap 16 MEQ/L (5-15) Estimat Glomerular Filtration Rate 11 ML/MIN (>89) Test 02/24/17 04:17 02/25/17 03:54 02/25/17 10:00 White Blood Count 7.8 TH/MM3 (4.0-11.0) 7.3 TH/MM3 (4.0-11.0) Red Blood Count 3.06 MIL/MM3 (4.50-5.90) 3.18 MIL/MM3 (4.50-5.90) Hemoglobin 9.3 GM/DL (13.0-17.0) 9.5 GM/DL (13.0-17.0) Hematocrit 28.1 % (39.0-51.0) 28.7 % (39.0-51.0) Mean Corpuscular Volume 91.8 FL (80.0-100.0) 90.1 FL (80.0-100.0) Mean Corpuscular Hemoglobin 30.3 PG (27.0-34.0) 29.8 PG (27.0-34.0) Mean Corpuscular Hemoglobin Concent 33.0 % (32.0-36.0) 33.1 % (32.0-36.0) Red Cell Distribution Width 16.7 % (11.6-17.2) 16.5 % (11.6-17.2) Platelet Count 48 TH/MM3 (150-450) 62 TH/MM3 (150-450) Mean Platelet Volume 11.1 FL (7.0-11.0) 10.2 FL (7.0-11.0) Neutrophils (%) (Auto) 82.4 % (16.0-70.0) 76.5 % (16.0-70.0) Lymphocytes (%) (Auto) 6.9 % (9.0-44.0) 6.8 % (9.0-44.0) Monocytes (%) (Auto) 9.8 % (0.0-8.0) 14.5 % (0.0-8.0) Eosinophils (%) (Auto) 0.7 % (0.0-4.0) 2.0 % (0.0-4.0) Basophils (%) (Auto) 0.2 % (0.0-2.0) 0.2 % (0.0-2.0) Neutrophils # (Auto) 6.4 TH/MM3 (1.8-7.7) 5.6 TH/MM3 (1.8-7.7) Lymphocytes # (Auto) 0.5 TH/MM3 (1.0-4.8) 0.5 TH/MM3 (1.0-4.8) Monocytes # (Auto) 0.8 TH/MM3 (0-0.9) 1.1 TH/MM3 (0-0.9) Eosinophils # (Auto) 0.1 TH/MM3 (0-0.4) 0.1 TH/MM3 (0-0.4) Basophils # (Auto) 0.0 TH/MM3 (0-0.2) 0.0 TH/MM3 (0-0.2) CBC Comment AUTO DIFF DIFF FINAL Differential Comment AUTO DIFF CONFIRMED Ovalocytes 1+ (NORMAL) Prothrombin Time 23.5 SEC (9.8-11.6) 20.0 SEC (9.8-11.6) Prothromb Time International Ratio 2.1 RATIO 1.8 RATIO Activated Partial Thromboplast Time 40.6 SEC (24.3-30.1) 38.6 SEC (24.3-30.1) Fibrinogen 105 mg/dL (227-377) 151 mg/dL (227-377) Blood Urea Nitrogen 70 MG/DL (7-18) 91 MG/DL (7-18) Creatinine 4.75 MG/DL (0.60-1.30) 5.67 MG/DL (0.60-1.30) Random Glucose 469 MG/DL (74-106) 409 MG/DL (74-106) Calcium Level 8.0 MG/DL (8.5-10.1) 8.2 MG/DL (8.5-10.1) Sodium Level 139 MEQ/L (136-145) 142 MEQ/L (136-145) Potassium Level 4.1 MEQ/L (3.5-5.1) 3.4 MEQ/L (3.5-5.1) Chloride Level 103 MEQ/L (98-107) 106 MEQ/L (98-107) Carbon Dioxide Level 19.7 MEQ/L (21.0-32.0) 22.7 MEQ/L (21.0-32.0) Anion Gap 16 MEQ/L (5-15) 13 MEQ/L (5-15) Estimat Glomerular Filtration Rate 14 ML/MIN (>89) 12 ML/MIN (>89) Total Bilirubin 1.4 MG/DL (0.2-1.0) 1.1 MG/DL (0.2-1.0) Direct Bilirubin 0.9 MG/DL (0.0-0.2) 0.8 MG/DL (0.0-0.2) Indirect Bilirubin 0.5 MG/DL (0.0-0.8) 0.3 MG/DL (0.0-0.8) Aspartate Amino Transf (AST/SGOT) 178 U/L (15-37) 63 U/L (15-37) Alanine Aminotransferase (ALT/SGPT) 472 U/L (12-78) 322 U/L (12-78) Alkaline Phosphatase 121 U/L (45-117) 119 U/L (45-117) Total Protein 6.3 GM/DL (6.4-8.2) 6.3 GM/DL (6.4-8.2) Albumin 2.8 GM/DL (3.4-5.0) 2.6 GM/DL (3.4-5.0) Phosphorus Level 4.3 MG/DL (2.5-4.9) Result Diagram: 02/25/17 0354 02/25/17 1000 Imaging Last Impressions Head CT 02/25/17 0807 Signed Impressions: Service Date/Time: Saturday, February 25, 2017 11:31 - CONCLUSION: Negative for an acute process. Rylan Wang MD FACR Hepatobiliary Scan Nuclear Medicine 02/24/17 0000 Signed Impressions: Service Date/Time: Friday, February 24, 2017 12:33 - CONCLUSION: 1. Lack of visualization of the gallbladder. We will have the patient return for delayed imaging. At this point acute cholecystitis versus chronic cholecystitis. Dontrell Mcqueen Jr., MD ADDENDUM: 24-hour delayed imaging shows activity within the gallbladder. This would be consistent with chronic cholecystitis. Dontrell Mcqueen Jr., MD Chest X-Ray 02/21/17 0600 Signed Impressions: Service Date/Time: Tuesday, February 21, 2017 04:36 - CONCLUSION: Bibasilar areas of suspected consolidation/atelectasis and effusion being worse on the right. The findings have worsened since the prior exam. Flakito Chan MD Liver Ultrasound 02/20/17 0000 Signed Impressions: Service Date/Time: Monday, February 20, 2017 10:51 - CONCLUSION: Gallstones and gallbladder wall thickening. There is no intrahepatic biliary duct dilatation. Rylan Wang MD FACR Renal Ultrasound 02/19/17 0000 Signed Impressions: Service Date/Time: February 17:19 - CONCLUSION: No evidence of hydronephrosis. Indwelling Scott catheter with collapsed bladder in thickened bladder wall. Cal Tomlinson MD Procedures Left subclavian line 02/19/17 Vas-Cath placement 02/21/17 . Assessment and Plan Disease Oriented Problem List: (1) encephalopathy, likely due to multiple medical issues, sepsis, renal failure (2) acute renal failure, history of chronic kidney disease; possible ATN (3) elevated transaminases and abnormal HIDA scan Comment: May have cholecystitis, additional imaging pending (4) sepsis, negative culture so far (5) pneumonia on x-ray (6) uncontrolled diabetes (7) thrombocytopenia (8) cardiomyopathy, EF 25% (9) chronic kidney disease, creatinine 2.2 in 2012 (10) anemia (11) history of noncompliance (12) insulin-dependent diabetes (13) malnutrition, albumin 2.8 (14) history of DKA (15) hypertension (16) hyperlipidemia (17) DJD Symptom Scale: (1) agitation 0-10 Scale: Unable to quantify (2) encephalopathy 0-10 Scale: Unable to quantify Pertinent Non-Medical Issues Psychosocial: , 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 One daughter and 3 sons, estranged from the 3 sons. Spiritual: Not spiritual restorationism but daughter does want motorcycle assembler visits for him. Legal: The patient lacks capacity for decision-making, and it is uncertain whether he will regain that capacity. He has 4 children, but is estranged from his 3 sons, and they have thus far been unwilling to speak with us or participate in decision-making. Therefore, the patient's daughter Jakub Crawford is his proxy decision-maker. We have made it clear that we are available to speak with any of his sons if they call. Ethical issues impacting care: . Important Contacts Daughter/HCP: Jakub Crawford [phone] Granddaughter: Renae Rocha [phone] . Prognosis Overall, the patient's prognosis is poor. He now has multisystem organ failure or dysfunction, including renal, neuro, cardiac, pulmonary, hematologic, and he is quite lethargic/weak/encephalopathic. . Code Status: Full Code Plan * FULL CODE - daughter "wants to give him a chance" * DECISION-MAKING: The patient lacks capacity for decision-making, and the patient's daughter Jakub Crawford is his proxy decision-maker. * GOALS: The patient's daughter requests continued aggressive care, including mechanical ventilation if the patient has cardiac or respiratory failure. She "wants to give him a chance." She does understand that, with his multisystem involvement, he will be rendered quite weak and most likely dependent 24/ for care. * SYMPTOMS: His encephalopathy is improving a little; it is likely still advantageous to keep him off of any medications that could be sedating. He has no obvious pain or dyspnea at this time. * Palliative Care will continue to follow the patient during this hospitalization. . Time Spent Total Floor Time (mins): 29 Face to Face Time (mins): 14 >50% Counseling/Coord of Care: Yes (d/w RN) Attestation To help prompt me to consider important information that might be impacting today's encounter and assessment, information from prior notes written by myself or my colleagues may have been "brought forward" into today's note. My signature on this note, however, is an attestation that I personally performed the exam, history, and/or decision-making noted today, and, unless otherwise indicated, the interactions with patient, family, and staff as well as the review of records all occurred today. I also attest that the listed assessment and stated plan reflect my best clinical judgment today based on the combination of historical information, prior notes, and today's exam/ interactions. When time spent is documented, it refers only to time spent today by the signer, or if indicated, combined time spent today by collaborating physician/nurse practitioner. Shaneka Sandy MD Feb 25, 2017 14:50
--- NOTE | 2017-02-25 15:33 | PD.ONC.PN ---
Subjective Subjective Remarks Afebrile Undergoing hemodialysis No bleeding Objective Data Date Time Temp Pulse Resp B/P (MAP) Pulse Ox O2 Delivery O2 Flow Rate FiO2 02/25/17 14:15 72 02/25/17 14:00 73 02/25/17 13:15 74 02/25/17 13:15 74 18 166/88 (114) 100 02/25/17 13:08 76 22 137/74 (95) 100 02/25/17 13:08 76 02/25/17 12:23 78 25 118/71 (87) 99 02/25/17 12:23 78 02/25/17 10:00 79 25 100 02/25/17 10:00 79 02/25/17 09:01 100 02/25/17 08:00 74 02/25/17 08:00 74 17 119/66 (83) 100 02/25/17 06:00 71 02/25/17 04:00 78 02/25/17 04:00 98.4 78 14 115/64 (81) 100 02/25/17 02:00 76 02/25/17 00:00 74 02/25/17 00:00 98.4 75 24 111/71 (84) 100 02/24/17 22:00 75 02/24/17 20:57 100 Nasal Cannula 2.00 02/24/17 20:00 98.6 78 13 122/66 (84) 100 02/24/17 20:00 78 02/24/17 18:00 74 02/24/17 18:00 74 7 118/56 (76) 100 02/24/17 17:00 72 02/24/17 17:00 72 9 123/67 (85) 100 02/24/17 16:00 97.8 74 22 119/63 (81) 100 02/24/17 16:00 74 02/25/17 02/25/17 02/25/17 07:00 15:00 23:00 Intake Total 1250 ml 200 ml Output Total 50 ml Balance 1200 ml 200 ml Result Diagram: 02/25/17 0354 02/25/17 1000 Laboratory Results Laboratory Tests Test 02/25/17 03:54 02/25/17 10:00 White Blood Count 7.3 TH/MM3 Red Blood Count 3.18 MIL/MM3 Hemoglobin 9.5 GM/DL Hematocrit 28.7 % Mean Corpuscular Volume 90.1 FL Mean Corpuscular Hemoglobin 29.8 PG Mean Corpuscular Hemoglobin Concent 33.1 % Red Cell Distribution Width 16.5 % Platelet Count 62 TH/MM3 Mean Platelet Volume 10.2 FL Neutrophils (%) (Auto) 76.5 % Lymphocytes (%) (Auto) 6.8 % Monocytes (%) (Auto) 14.5 % Eosinophils (%) (Auto) 2.0 % Basophils (%) (Auto) 0.2 % Neutrophils # (Auto) 5.6 TH/MM3 Lymphocytes # (Auto) 0.5 TH/MM3 Monocytes # (Auto) 1.1 TH/MM3 Eosinophils # (Auto) 0.1 TH/MM3 Basophils # (Auto) 0.0 TH/MM3 CBC Comment DIFF FINAL Differential Comment Prothrombin Time 20.0 SEC Prothromb Time International Ratio 1.8 RATIO Activated Partial Thromboplast Time 38.6 SEC Fibrinogen 151 mg/dL Blood Urea Nitrogen 91 MG/DL Creatinine 5.67 MG/DL Random Glucose 409 MG/DL Albumin 2.6 GM/DL Calcium Level 8.2 MG/DL Phosphorus Level 4.3 MG/DL Sodium Level 142 MEQ/L Potassium Level 3.4 MEQ/L Chloride Level 106 MEQ/L Carbon Dioxide Level 22.7 MEQ/L Anion Gap 13 MEQ/L Estimat Glomerular Filtration Rate 12 ML/MIN Total Bilirubin 1.1 MG/DL Direct Bilirubin 0.8 MG/DL Indirect Bilirubin 0.3 MG/DL Aspartate Amino Transf (AST/SGOT) 63 U/L Alanine Aminotransferase (ALT/SGPT) 322 U/L Alkaline Phosphatase 119 U/L Total Protein 6.3 GM/DL Imaging Studies Last [address] 02/25/17 0807 Signed Impressions: Service Date/Time: Saturday, February 25, 2017 11:31 - CONCLUSION: Negative for an acute process. Rylan Wang MD FACR Administered Medications Medications (Trade) Dose Ordered Sig/Fede Route PRN Reason Start Time Stop Time Status Last Admin Dose Admin Sodium Chloride (NS Flush) 2 ml BID IV FLUSH 02/19/17 21:00 02/25/17 09:00 Pantoprazole Sodium (Protonix Inj) 40 mg DAILY IV PUSH 02/20/17 09:00 02/25/17 09:08 Heparin Sodium (Porcine) (Heparin Inj) 5,000 units Q12H SQ 02/19/17 17:00 Future Hold 02/21/17 16:36 Chlorhexidine Gluconate (Chlorhexidine 2% Cloth) Taper DAILY@04 TOP 02/20/17 04:00 02/16/18 03:59 02/25/17 02:34 Senna/Docusate Sodium (Princess-Colace) 1 tab BID PO 02/19/17 21:00 02/25/17 09:08 Aspirin (Aspirin Chew) 81 mg DAILY CHEW 02/19/17 15:15 Future Hold 02/21/17 07:46 Metoprolol Tartrate (Lopressor) 25 mg Q8HR PO 02/19/17 16:30 02/25/17 13:17 Melatonin (Melatonin) 5 mg HS PRN PO SLEEP 02/19/17 22:15 02/20/17 21:45 Insulin Detemir (Levemir Inj) 5 units Q12H SQ 02/20/17 09:30 Future Hold 02/22/17 08:22 Insulin Aspart (NovoLOG INJ) 3 units TIDAC SQ 02/20/17 12:00 Future Hold 02/22/17 08:00 Dextrose (D50w (Vial) Inj) 50 ml UNSCH PRN IV PUSH HYPOGLYCEMIA-SEE COMMENTS 02/20/17 09:30 02/22/17 12:32 Sodium Chloride 1,000 ml @ 200 mls/hr Q5H PRN IV WITH DIALYSIS 02/21/17 10:55 02/21/17 14:48 Mannitol (Mannitol Inj) 12.5 gm UNSCH PRN IV WITH DIALYSIS 02/21/17 11:00 02/21/17 14:48 Albumin Human 100 ml @ 60 mls/hr UNSCH PRN IV WITH DIALYSIS 02/21/17 11:00 02/25/17 13:37 Heparin Sodium (Porcine) (Heparin Inj) UNSCH PRN .XX WITH DIALYSIS 02/21/17 11:00 02/25/17 13:37 Gentamicin Sulfate (Gentamicin (Dialysis) Inj) 20 mg UNSCH PRN OTHER WITH DIALYSIS 02/21/17 11:00 02/25/17 13:38 Albuterol/ Ipratropium (Duoneb Neb) 1 ampule Q4HR NEB INH 02/22/17 16:00 02/25/17 09:01 Metronidazole 100 ml @ 100 mls/hr Q8H IV 02/23/17 12:00 02/25/17 12:00 Levofloxacin/ Dextrose 50 ml @ 50 mls/hr Q24H IV 02/23/17 11:00 02/25/17 11:00 Insulin Aspart (NovoLOG SUPPLEMENTAL SCALE) 1 ACHS SLIDING SCALE SQ 02/24/17 12:00 02/25/17 12:00 Insulin Detemir (Levemir Inj) 5 units Q12HR SQ 02/25/17 09:00 02/25/17 09:00 Lactobacillus Acidophilus (Lactinex) 1 tab TID PO 02/25/17 13:00 02/25/17 13:00 Objective Remarks GENERAL: Elderly male lying in bed getting hemodialysis SKIN: Warm and dry. HEAD: Normocephalic. NGT clamped. EYES: No injection or drainage. NECK: Supple, trachea midline. CARDIOVASCULAR: +S1/S2 RESPIRATORY: Scattered rhonchi anteriorly. On 2L O2 via NC GASTROINTESTINAL: Abdomen soft, non-tender, nondistended. EXTREMITIES: No cyanosis NEUROLOGICAL: Awake. Following commands. Assessment/Plan Problem List: (1) thrombocytopenia Plan: 02/25: No bleeding. Platelets improving. Continue to monitor CBC. -- multifactorial due to sepsis, DIC and medications (2) acute renal failure, history of chronic kidney disease; possible ATN Plan: --on dialysis Assessment 77y/o male admited with sepsis. h/o diabetes mellitus, hypertension, hypercholesterolemia and questionable developmental delay. chronic renal failure. Attending Statement Remains confused Plat are coming up dialysis Monitor CBC The exam, history, and the medical decision-making described in the above note were completed with the assistance of the mid-level provider. I reviewed and agree with the findings presented. I attest that I had a [id number] encounter with the patient on the same day, and personally performed and documented my assessment and findings in the medical record. Holly Muñoz Feb 25, 2017 15:32 Alejandra Fraire MD Feb 25, 2017 17:25
[2017-02-26] VITALS (12 sets, daily range): BP systolic 108–128; BP diastolic 52–71; PULSE 18–93; RESP 18–23; TEMP 97.2–99.5; O2SAT 97–100
[2017-02-26] MEDS: CHLORHEXIDINE GLUCONATE 2 % 1 PACK (2 CLOTHS) TOP SCH ×2 (04:00)
[2017-02-26] MEDS: RESP: ALBUTEROL 2.5 MG/IPRATROPIUM 0.5 MG NEB (SCH) INH ×8 (04:16→15:35)
[2017-02-26] MEDS: METOPROLOL TARTRATE 25 MG TAB PO SCH ×6 (05:22→21:49)
[2017-02-26] MEDS: metroNIDAZOLE 500 MG INJ 100 ML IV SCH ×6 (05:22→21:29)
--- NOTE | 2017-02-26 07:28 | HHI.PR ---
Subjective Remarks in no acute distress. no fever. still on restraints. blood sugar trend noted. d/w the RN and no acute issues over night. Objective Vitals Vital Signs Date Time Temp Pulse Resp B/P (MAP) Pulse Ox O2 Delivery O2 Flow Rate FiO2 02/26/17 06:00 85 02/26/17 04:00 97.2 84 23 117/70 (86) 02/26/17 04:00 85 02/26/17 02:00 84 02/26/17 00:00 97.4 80 22 115/62 (79) 99 02/26/17 00:00 80 02/25/17 22:00 79 02/25/17 20:00 97.8 79 21 115/58 (77) 100 02/25/17 20:00 79 02/25/17 19:50 100 21 02/25/17 19:00 79 02/25/17 18:45 79 02/25/17 18:30 79 02/25/17 18:15 79 02/25/17 18:00 80 02/25/17 17:00 76 02/25/17 17:00 76 15 108/64 (79) 100 02/25/17 16:25 75 02/25/17 16:25 75 30 108/57 (74) 84 02/25/17 16:16 73 19 111/56 (74) 100 02/25/17 16:16 73 02/25/17 16:01 73 27 107/80 (89) 100 02/25/17 16:01 73 02/25/17 16:00 73 02/25/17 16:00 73 23 100 02/25/17 14:15 72 02/25/17 14:00 73 02/25/17 13:15 74 02/25/17 13:15 74 18 166/88 (114) 100 02/25/17 13:08 76 22 137/74 (95) 100 02/25/17 13:08 76 02/25/17 12:23 78 25 118/71 (87) 99 02/25/17 12:23 78 02/25/17 10:00 79 25 100 02/25/17 10:00 79 02/25/17 09:01 100 02/25/17 08:00 74 02/25/17 08:00 74 17 119/66 (83) 100 I/O 02/25/17 02/25/17 02/25/17 02/26/17 02/26/17 02/26/17 07:00 15:00 23:00 07:00 15:00 23:00 Intake Total 1250 ml 200 ml 507 ml 678 ml Output Total 50 ml 45 ml Balance 1200 ml 200 ml 507 ml 633 ml IV Total 350 ml 200 ml Tube Feeding 700 ml 387 ml 558 ml Other 200 ml 120 ml 120 ml Output Urine Total 50 ml 45 ml # Bowel Movements 1 4 1 Result Diagram: 02/25/17 0354 02/25/17 1000 Objective Remarks GENERAL: in no acute distress HEENT; NG tube in place- pupils with minimal reaction to light bilaterally CARDIOVASCULAR: Regular rate and regular rhythm without murmurs, gallops, or rubs. RESPIRATORY: bilateral air entry present GASTROINTESTINAL: Abdomen soft, non-tender, nondistended. Normal, active bowel sounds MUSCULOSKELETAL: Extremities without clubbing, cyanosis, or edema. NEURO: mildly lethargic but easily arousable. Medications and IVs Current Medications IV Flush (NS Flush) 2 ml UNSCH PRN IV FLUSH FLUSH AFTER USING IV ACCESS; Start 02/19/17 at 12:15; Stop 02/19/17 at 16:15; Status DC Sodium Chloride 1,000 ml @ 1,000 mls/hr Q1H IV Last administered on 12:17; Start 02/19/17 at 12:05; Stop 02/19/17 at 13:04; Status DC Sodium Chloride 1,000 ml @ 999 mls/hr BOLUS ONCE IV Last administered on 12:18; Start 02/19/17 at 12:15; Stop 02/19/17 at 13:15; Status DC Insulin Human Regular (NovoLIN R INJ) 10 units ONCE ONCE IV PUSH Last administered on 02/19/17 12:23; Start 02/19/17 at 12:15; Stop 02/19/17 at 12 :16; Status DC Sodium Chloride 1,000 ml @ 999 mls/hr BOLUS ONCE IV Last administered on 13:25; Start 02/19/17 at 13:00; Stop 02/19/17 at 14:00; Status DC Sodium Chloride 1,000 ml @ 250 mls/hr Q4H IV Last administered on 02/19/17 14:36; Start 02/19/17 at 13:35; Stop 02/19/17 at 16:40; Status DC Dextrose/Sodium Chloride 1,000 ml @ 200 mls/hr Q5H IV ; Start 02/19/17 at 13: 35; Stop 02/20/17 at 00:07; Status DC Insulin Human Regular 100 units/ Sodium Chloride 100 ml @ 6.5 mls/hr TITRATE IV Last administered on 02/20/17 00:30; Start 02/19/17 at 15:00; Stop 02/20 at 09:24; Status DC Sodium Bicarbonate (Sodium Bicarbonate 8.4% Inj) 100 meq UNSCH PRN IV PUSH SEE LABEL COMMENTS; Start 02/19/17 at 13:45 Sodium Bicarbonate (Sodium Bicarbonate 8.4% Inj) 50 meq UNSCH PRN IV PUSH SEE LABEL COMMENTS; Start 02/19/17 at 13:45 Sodium Phosphate 15 mmol/Sodium Chloride 105 ml @ 25 mls/hr UNSCH PRN IV SEE LABEL COMMENTS; Start 02/19/17 at 13:45 Miscellaneous Information 1 Q361D XX ; Start 02/19/17 at 13:45; Stop 02/19/17 at 16:14; Status DC Chlorhexidine Gluconate (Chlorhexidine 2% Cloth) 3 pack Taper DAILY@04 TOP ; Start 02/20/17 at 04:00; Stop 02/20/17 at 04:00; Status DC Chlorhexidine Gluconate (Chlorhexidine 2% Cloth) 3 pack UNSCH PRN TOP HYGIENIC CARE; Start 02/19/17 at 13:45; Stop 02/19/17 at 16:14; Status DC Piperacillin Sod/ Tazobactam Sod 100 ml @ 200 mls/hr ONCE ONCE IV Last administered on 02/19/17 14:36; Start 02/19/17 at 14:30; Stop 02/19/17 at 14 :59; Status DC Vancomycin HCl 1000 mg/Sodium Chloride 250 ml @ 250 mls/hr ONCE ONCE IV Last administered on 02/19/17 14:36; Start 02/19/17 at 14:30; Stop 02/19/17 at 15 :29; Status DC Sodium Chloride (NS Flush) 2 ml UNSCH PRN IV FLUSH FLUSH AFTER USING IV ACCESS ; Start 02/19/17 at 14:15 Sodium Chloride (NS Flush) 2 ml BID IV FLUSH Last administered on 02/25/17 21 :00; Start 02/19/17 at 21:00 Pantoprazole Sodium (Protonix Inj) 40 mg DAILY IV PUSH Last administered on 09:08; Start 02/20/17 at 09:00 Albuterol/ Ipratropium (Duoneb Neb) 1 ampule Q6HR NEB INH Last administered on 02/22/17 10:35; Start 02/19/17 at 16:00; Stop 02/22/17 at 13:56; Status DC Albuterol/ Ipratropium (Duoneb Neb) 1 ampule Q4HR NEB PRN INH WHEEZING; Start 02/19/17 at 14:15; Stop 02/22/17 at 13:57; Status DC Heparin Sodium (Porcine) (Heparin Inj) 5,000 units Q12H SQ Last administered on 02/21/17 16:36; Start 02/19/17 at 17:00; Status Future Hold Miscellaneous Information 1 Q361D XX ; Start 02/19/17 at 14:15 Chlorhexidine Gluconate (Chlorhexidine 2% Cloth) Taper DAILY@04 TOP Last administered on 02/25/17 02:34; Start 02/20/17 at 04:00; Stop 02/16/18 at 03: 59 Chlorhexidine Gluconate (Chlorhexidine 2% Cloth) 3 pack UNSCH PRN TOP HYGIENIC CARE; Start 02/19/17 at 14:15 Senna/Docusate Sodium (Princess-Colace) 1 tab BID PO Last administered on 20:53; Start 02/19/17 at 21:00 Magnesium Hydroxide (Milk Of Magnesia Liq) 30 ml Q12H PRN PO MILD - MODERATE CONSTIPATION; Start 02/19/17 at 14:15 Sennosides (Senokot) 17.2 mg Q12H PRN PO MODERATE - SEVERE CONSTIPATION; Start 02/19/17 at 14:15 Bisacodyl (Dulcolax Supp) 10 mg DAILY PRN RECTAL SEVERE CONSITIPATION; Start 02/19/17 at 14:15 Lactulose (Lactulose Liq) 30 ml DAILY PRN PO SEVERE CONSITIPATION; Start 02/19 at 14:15 Aspirin (Aspirin Chew) 81 mg DAILY CHEW Last administered on 02/21/17 07:46; Start 02/19/17 at 15:15; Status Future Hold Piperacillin Sod/ Tazobactam Sod 50 ml @ 100 mls/hr Q6H IV Last administered on 02/22/17 21:10; Start 02/19/17 at 21:00; Stop 02/23/17 at 01:15; Status DC Sodium Chloride 1,000 ml @ 999 mls/hr BOLUS ONCE IV Last administered on 16:53; Start 02/19/17 at 16:15; Stop 02/19/17 at 17:15; Status DC Metoprolol Tartrate (Lopressor) 25 mg Q8HR PO Last administered on 02/26/17 05:22; Start 02/19/17 at 16:30 Sodium Chloride 1,000 ml @ 100 mls/hr Q10H IV Last administered on 02/19/17 17:22; Start 02/19/17 at 16:45; Stop 02/20/17 at 00:07; Status DC Sodium Bicarbonate (Sodium Bicarbonate 8.4% Inj) 50 meq ONCE ONCE IV PUSH Last administered on 02/19/17 16:50; Start 02/19/17 at 17:00; Stop 02/19/17 at 17:01; Status DC Sodium Chloride 1,000 ml @ 999 mls/hr BOLUS ONCE IV ; Start 02/19/17 at 17:00 ; Stop 02/19/17 at 18:00; Status DC Melatonin (Melatonin) 5 mg HS PRN PO SLEEP Last administered on 02/20/17 21: 45; Start 02/19/17 at 22:15 Potassium Chloride 100 ml @ 25 mls/hr BOLUS ONCE IV Last administered on 00:18; Start 02/20/17 at 00:15; Stop 02/20/17 at 04:14; Status DC Dextrose 1,000 ml @ 120 mls/hr Q8H20M IV Last administered on 02/20/17 08:59 ; Start 02/20/17 at 00:15; Stop 02/20/17 at 09:24; Status DC Miscellaneous Information 1 ONCE ONCE .XX ; Start 02/20/17 at 09:30; Stop at 10:06; Status DC Miscellaneous Information 1 ONCE ONCE .XX ; Start 02/20/17 at 09:30; Stop at 10:01; Status DC Insulin Detemir (Levemir Inj) 5 units Q12H SQ Last administered on 02/22/17 08:22; Start 02/20/17 at 09:30; Status Future Hold Insulin Aspart (NovoLOG INJ) 3 units TIDAC SQ Last administered on 02/22/17 08:00; Start 02/20/17 at 12:00; Status Future Hold Insulin Aspart (NovoLOG SUPPLEMENTAL SCALE) 1 ACHS SLIDING SCALE SQ Last administered on 02/20/17 21:31; Start 02/20/17 at 12:00; Stop 02/24/17 at 09 :01; Status DC Dextrose (D50w (Vial) Inj) 50 ml UNSCH PRN IV PUSH HYPOGLYCEMIA-SEE COMMENTS Last administered on 02/22/17 12:32; Start 02/20/17 at 09:30 Glucagon (Glucagon Inj) 1 mg UNSCH PRN OTHER HYPOGLYCEMIA-SEE COMMENTS; Start 02/20/17 at 09:30 Sodium Chloride 1,000 ml @ 60 mls/hr [id number] IV Last administered on 12:14; Start 02/20/17 at 09:30; Stop 02/22/17 at 13:47; Status DC Haloperidol Lactate (Haldol Inj) 2 mg Q4H PRN IV agitation; Start 02/20/17 at 09:45 Lorazepam (Ativan Inj) 1 mg Q6H PRN IV PUSH ANXIETY AND/OR AGITATION; Start at 08:00 Sodium Chloride 1,000 ml @ 0 mls/hr Q0M PRN OTHER For Prime & Rinse Back; Start 02/21/17 at 10:55 Heparin Sodium (Porcine) (Heparin Inj) 8,000 units UNSCH PRN IV FLUSH WITH DIALYSIS; Start 02/21/17 at 11:00 Sodium Chloride 1,000 ml @ 200 mls/hr Q5H PRN IV WITH DIALYSIS Last administered on 02/21/17 14:48; Start 02/21/17 at 10:55 Sodium Chloride 1,000 ml @ 0 mls/hr Q0M PRN OTHER WITH DIALYSIS; Start at 10:55 Mannitol (Mannitol Inj) 12.5 gm UNSCH PRN IV WITH DIALYSIS Last administered on 02/21/17 14:48; Start 02/21/17 at 11:00 Albumin Human 100 ml @ 60 mls/hr UNSCH PRN IV WITH DIALYSIS Last administered on 02/25/17 13:37; Start 02/21/17 at 11:00 Sodium Chloride (NS Flush) 5 ml UNSCH PRN IV FLUSH WITH DIALYSIS; Start at 11:00 Heparin Sodium (Porcine) (Heparin Inj) UNSCH PRN .XX WITH DIALYSIS Last administered on 02/25/17 13:37; Start 02/21/17 at 11:00 Gentamicin Sulfate (Gentamicin (Dialysis) Inj) 20 mg UNSCH PRN OTHER WITH DIALYSIS Last administered on 02/25/17 13:38; Start 02/21/17 at 11:00 Ondansetron HCl (Zofran Inj) 4 mg UNSCH PRN IV PUSH WITH DIALYSIS; Start 02/21 at 11:00 Acetaminophen (Tylenol) 650 mg UNSCH PRN PO for headach, pain, temp > 101F; Start 02/21/17 at 11:00 Diphenhydramine HCl (Benadryl) 25 mg UNSCH PRN PO for hives/itching/anaphylaxis ; Start 02/21/17 at 11:00 Nitroglycerin (Nitrostat Sl) 0.4 mg UNSCH PRN SL CHEST PAIN; Start 02/21/17 at 11:00 Clonidine (Catapres) 0.1 mg UNSCH PRN PO for BP > 180/100 X 2 readings; Start 02/21/17 at 11:00 Gelatin (Gelfoam 12 Mm/7 Mm Top) 1 foam UNSCH PRN TOP SEE LABEL COMMENTS; Start 02/21/17 at 11:00 Midazolam HCl (Versed Inj) 5 mg STK-MED ONCE .ROUTE ; Start 02/21/17 at 12:47; Stop 02/21/17 at 12:48; Status DC Flumazenil (Romazicon Inj) 0.5 mg STK-MED ONCE .ROUTE ; Start 02/21/17 at 13:42 ; Stop 02/21/17 at 13:43; Status DC Flumazenil (Romazicon Inj) 0.5 mg STK-MED ONCE .ROUTE ; Start 02/21/17 at 13:42 ; Stop 02/21/17 at 13:43; Status DC Flumazenil (Romazicon Inj) 0.5 mg STAT ONCE IV ; Start 02/21/17 at 14:00; Stop 02/21/17 at 14:01; Status DC Albuterol/ Ipratropium (Duoneb Neb) 1 ampule Q4HR NEB INH Last administered on 02/26/17 04:16; Start 02/22/17 at 16:00 Albuterol/ Ipratropium (Duoneb Neb) 1 ampule Q2HR NEB PRN INH WHEEZING; Start 02/22/17 at 14:00 Dextrose 1,000 ml @ 42 mls/hr [id number] IV Last administered on 02/22/17 18:45 ; Start 02/22/17 at 18:45; Stop 02/23/17 at 11:20; Status DC Vancomycin HCl 1000 mg/Sodium Chloride 250 ml @ 250 mls/hr ONCE ONCE IV Last administered on 02/23/17 01:38; Start 02/23/17 at 01:30; Stop 02/23/17 at 02 :29; Status DC Metronidazole 100 ml @ 100 mls/hr Q8H IV Last administered on 02/26/17 05:22 ; Start 02/23/17 at 12:00 Levofloxacin/ Dextrose 50 ml @ 50 mls/hr Q24H IV Last administered on 11:00; Start 02/23/17 at 11:00 Sodium Chloride 154 meq/Dextrose 1,038.5 ml @ 20 mls/hr Q24H IV Last administered on 02/23/17 13:28; Start 02/23/17 at 12:00; Stop 02/24/17 at 00 :50; Status DC Dextrose 1,000 ml @ 42 mls/hr [id number] IV Last administered on 02/24/17 01:46 ; Start 02/24/17 at 01:00; Stop 02/24/17 at 04:39; Status DC Insulin Human Regular (NovoLIN R INJ) 10 units NOW ONCE IV PUSH Last administered on 02/24/17 05:01; Start 02/24/17 at 04:45; Stop 02/24/17 at 04 :47; Status DC Insulin Human Regular (NovoLIN R INJ) 10 units ONCE ONCE IV PUSH Last administered on 02/24/17 06:30; Start 02/24/17 at 06:15; Stop 02/24/17 at 06 :16; Status DC Dextrose (D50w (Vial) Inj) 50 ml UNSCH PRN IV PUSH HYPOGLYCEMIA-SEE COMMENTS; Start 02/24/17 at 08:30 Glucagon (Glucagon Inj) 1 mg UNSCH PRN OTHER HYPOGLYCEMIA-SEE COMMENTS; Start 02/24/17 at 08:30 Insulin Aspart (NovoLOG SUPPLEMENTAL SCALE) 1 ACHS SLIDING SCALE SQ Last administered on 02/25/17 12:00; Start 02/24/17 at 12:00 Insulin Detemir (Levemir Inj) 5 units Q12HR SQ Last administered on 02/25/17 20:53; Start 02/25/17 at 09:00 Lactobacillus Acidophilus (Lactinex) 1 tab TID PO Last administered on 19:32; Start 02/25/17 at 13:00 A/P Problem List: (1) Acute metabolic encephalopathy ICD Code: G93.41 - Metabolic encephalopathy (2) Altered mental status ICD Code: R41.82 - Altered mental status, unspecified Status: Acute (3) DKA (diabetic ketoacidoses) ICD Code: E13.10 - Other specified diabetes mellitus with ketoacidosis without coma Status: Acute (4) Non-STEMI (non-ST elevated myocardial infarction) ICD Code: I21.4 - Non-ST elevation (NSTEMI) myocardial infarction Status: Acute (5) Dehydration with hypernatremia ICD Code: E87.0 - Hyperosmolality and hypernatremia Status: Acute (6) Sepsis ICD Code: A41.9 - Sepsis, unspecified organism Status: Acute (7) UTI (urinary tract infection) ICD Code: N39.0 - Urinary tract infection, site not specified Status: Acute (8) Acute renal failure ICD Code: N17.9 - Acute kidney failure, unspecified Status: Acute (9) Hyperglycemia ICD Code: R73.9 - Hyperglycemia, unspecified Status: Acute (10) Lactic acidemia ICD Code: E87.2 - Acidosis (11) Transaminitis ICD Code: R74.0 - Nonspecific elevation of levels of transaminase and lactic acid dehydrogenase [LDH] (12) Respiratory insufficiency ICD Code: R06.89 - Other abnormalities of breathing Assessment and Plan A/P Acute encephalopathy -repeated CT with no acute abnormality. -Treat agitation with when necessary Haldol -continue to monitor. Respiratory insufficiency - keep on oxygen as needed to keep O2 sat >90% - continue neb treatment. elevated troponin Hypertension cardiomyopathy -echo with EF 25% - Aspirin on hold due to thrombocytopenia. - Metoprolol 25 mg every 8 hours - Avoid statins due to transaminitis -evaluated by cardiology. Transaminitis chronic cholecystitis -continue IV antibiotics. - Monitor liver enzymes Acute kidney injury superimposed on chronic kidney disease Severe dehydration - Baseline creatinine 1.8 to 2. Acute worsening secondary to severe dehydration and DKA - Monitor renal function closely. -HD initiated. - Nephrology following. Probable sepsis UTI -- one bottle of the blood cultures with staph coag. negative-likely contamination. -ID consult appreciated and started on Levaquin and Flagyl. diarrhea- stool negative for c-diff. Anemia thrombocytopenia-better today- possible DIC?- -heparin and aspirin on hold. -hematology following. -Monitor CBC. DKA-resolved hypoglycemic episodes- this has resolved. -NG tube in place and started on Nepro. -continue sliding scale coverage. -continue low dose levemir -continue to monitor and adjust the regimen as needed. PROPH: - Bilateral lower extremity SCDs. hold Heparin as noted above. - continue Protonix. transfer to telemetry within the next 24-48 hrs if stable. palliative care following. continue to monitor in ICU. d/w the RN. Problem Qualifiers (1) Altered mental status: Qualified Codes: R41.82 - Altered mental status, unspecified (2) DKA (diabetic ketoacidoses): (3) Sepsis: Qualified Codes: A41.9 - Sepsis, unspecified organism (4) UTI (urinary tract infection): (5) Acute renal failure: Qualified Codes: N17.9 - Acute kidney failure, unspecified Orion Braden MD Feb 26, 2017 07:28
[2017-02-26 07:59] LABS: AUTOMATED NEUTROPHIL # 4.2 TH/MM3 (1.8-7.7); BASOPHIL % 0.1 % (0.0-2.0); EOSINOPHIL # 0.1 TH/MM3 (0-0.4); EOSINOPHIL % 1.9 % (0.0-4.0); HEMATOCRIT 28.7 % (39.0-51.0); HEMOGLOBIN 9.3 GM/DL (13.0-17.0); LYMPH % 9.2 % (9.0-44.0); LYMPHOCYTE # 0.5 TH/MM3 (1.0-4.8); MEAN CELL VOLUME 91.3 FL (80.0-100.0); MEAN CORPUSCULAR HEMOGLOBIN 29.5 PG (27.0-34.0); MEAN CORPUSCULAR HGB CONC 32.3 % (32.0-36.0); MEAN PLATELET VOLUME 10.8 FL (7.0-11.0); MONO % 15.6 % (0.0-8.0); MONOCYTE # 0.9 TH/MM3 (0-0.9); NEUT % 73.2 % (16.0-70.0); PLATELET COUNT 58 TH/MM3 (150-450); RED BLOOD COUNT 3.15 MIL/MM3 (4.50-5.90); RED CELL DISTRIBUTION WIDTH 16.7 % (11.6-17.2); WHITE BLOOD COUNT 5.8 TH/MM3 (4.0-11.0)
[2017-02-26] MEDS: INSULIN ASPART SUPPLEMENTAL SCALE SQ SCH ×8 (08:00→22:44)
[2017-02-26 08:26] LABS: INTERNATIONAL NORMALIZED RATIO 1.6 RATIO; PROTHROMBIN TIME - PATIENT 18.6 SEC (9.8-11.6)
[2017-02-26 08:34] LABS: ALBUMIN 3.2 GM/DL (3.4-5.0); BICARBONATE 23.9 MEQ/L (21.0-32.0); CALCIUM 8.5 MG/DL (8.5-10.1); PHOSPHORUS 3.5 MG/DL (2.5-4.9)
[2017-02-26] MEDS: PANTOPRAZOLE SODIUM 40 MG VIAL IV PUSH SCH ×2 (08:52)
[2017-02-26] MEDS: INSULIN DETEMIR 100 UNITS/ML VIAL SQ SCH ×4 (08:52→22:44)
[2017-02-26] MEDS: LACTOBACILLUS ACIDOPHILUS TAB PO SCH ×6 (08:52→18:07)
[2017-02-26] MEDS: DOCUSATE SODIUM 50 MG/SENNA 8.6 MG TAB PO SCH ×4 (08:52→21:00)
[2017-02-26] MEDS: SODIUM CHLORIDE 0.9% FLUSH 10 ML FLUSH IV FLUSH SCH ×4 (08:52→21:00)
[2017-02-26 08:58] LABS: KERATOCYTES OCC (NORMAL); OVALOCYTES 1+ (NORMAL)
--- NOTE | 2017-02-26 11:37 | PD.ONC.PN ---
Subjective Subjective Remarks Afebrile overnight. Patient requesting water. Unfortunately, he is NPO and receiving tube feeds. d/w nurse, she will provide a swab to moisten mouth. Objective Data Date Time Temp Pulse Resp B/P (MAP) Pulse Ox O2 Delivery O2 Flow Rate FiO2 02/26/17 10:00 85 02/26/17 08:21 100 Nasal Cannula 2.00 02/26/17 08:00 84 02/26/17 08:00 97.8 79 21 115/58 (77) 100 02/26/17 06:00 85 02/26/17 04:00 97.2 84 23 117/70 (86) 02/26/17 04:00 85 02/26/17 02:00 84 02/26/17 00:00 97.4 80 22 115/62 (79) 99 02/26/17 00:00 80 02/25/17 22:00 79 02/25/17 20:00 97.8 79 21 115/58 (77) 100 02/25/17 20:00 79 02/25/17 19:50 100 21 02/25/17 19:00 79 02/25/17 18:45 79 02/25/17 18:30 79 02/25/17 18:15 79 02/25/17 18:00 80 02/25/17 17:00 76 02/25/17 17:00 76 15 108/64 (79) 100 02/25/17 16:25 75 02/25/17 16:25 75 30 108/57 (74) 84 02/25/17 16:16 73 19 111/56 (74) 100 02/25/17 16:16 73 02/25/17 16:01 73 27 107/80 (89) 100 02/25/17 16:01 73 02/25/17 16:00 73 02/25/17 16:00 73 23 100 02/25/17 14:15 72 02/25/17 14:00 73 02/25/17 13:15 74 02/25/17 13:15 74 18 166/88 (114) 100 02/25/17 13:08 76 22 137/74 (95) 100 02/25/17 13:08 76 02/25/17 12:23 78 25 118/71 (87) 99 02/25/17 12:23 78 02/26/17 02/26/17 02/26/17 07:00 15:00 23:00 Intake Total 678 ml Output Total 45 ml Balance 633 ml Result Diagram: 02/26/17 0516 02/26/17 0516 Laboratory Results Laboratory Tests Test 02/26/17 05:16 White Blood Count 5.8 TH/MM3 Red Blood Count 3.15 MIL/MM3 Hemoglobin 9.3 GM/DL Hematocrit 28.7 % Mean Corpuscular Volume 91.3 FL Mean Corpuscular Hemoglobin 29.5 PG Mean Corpuscular Hemoglobin Concent 32.3 % Red Cell Distribution Width 16.7 % Platelet Count 58 TH/MM3 Mean Platelet Volume 10.8 FL Neutrophils (%) (Auto) 73.2 % Lymphocytes (%) (Auto) 9.2 % Monocytes (%) (Auto) 15.6 % Eosinophils (%) (Auto) 1.9 % Basophils (%) (Auto) 0.1 % Neutrophils # (Auto) 4.2 TH/MM3 Lymphocytes # (Auto) 0.5 TH/MM3 Monocytes # (Auto) 0.9 TH/MM3 Eosinophils # (Auto) 0.1 TH/MM3 Basophils # (Auto) 0.0 TH/MM3 CBC Comment AUTO DIFF Differential Comment AUTO DIFF CONFIRMED Ovalocytes 1+ Keratocytes OCC Prothrombin Time 18.6 SEC Prothromb Time International Ratio 1.6 RATIO Activated Partial Thromboplast Time 38.1 SEC Fibrinogen 196 mg/dL Blood Urea Nitrogen 58 MG/DL Creatinine 4.00 MG/DL Random Glucose 256 MG/DL Albumin 3.2 GM/DL Calcium Level 8.5 MG/DL Phosphorus Level 3.5 MG/DL Sodium Level 140 MEQ/L Potassium Level 3.4 MEQ/L Chloride Level 102 MEQ/L Carbon Dioxide Level 23.9 MEQ/L Anion Gap 14 MEQ/L Estimat Glomerular Filtration Rate 18 ML/MIN Administered Medications Medications (Trade) Dose Ordered Sig/Fede Route PRN Reason Start Time Stop Time Status Last Admin Dose Admin Sodium Chloride (NS Flush) 2 ml BID IV FLUSH 02/19/17 21:00 02/26/17 08:52 Pantoprazole Sodium (Protonix Inj) 40 mg DAILY IV PUSH 02/20/17 09:00 02/26/17 08:52 Heparin Sodium (Porcine) (Heparin Inj) 5,000 units Q12H SQ 02/19/17 17:00 Future Hold 02/21/17 16:36 Chlorhexidine Gluconate (Chlorhexidine 2% Cloth) Taper DAILY@04 TOP 02/20/17 04:00 02/16/18 03:59 02/25/17 02:34 Senna/Docusate Sodium (Princess-Colace) 1 tab BID PO 02/19/17 21:00 02/26/17 08:52 Aspirin (Aspirin Chew) 81 mg DAILY CHEW 02/19/17 15:15 Future Hold 02/21/17 07:46 Metoprolol Tartrate (Lopressor) 25 mg Q8HR PO 02/19/17 16:30 02/26/17 05:22 Melatonin (Melatonin) 5 mg HS PRN PO SLEEP 02/19/17 22:15 02/20/17 21:45 Insulin Detemir (Levemir Inj) 5 units Q12H SQ 02/20/17 09:30 Future Hold 02/22/17 08:22 Insulin Aspart (NovoLOG INJ) 3 units TIDAC SQ 02/20/17 12:00 Future Hold 02/22/17 08:00 Dextrose (D50w (Vial) Inj) 50 ml UNSCH PRN IV PUSH HYPOGLYCEMIA-SEE COMMENTS 02/20/17 09:30 02/22/17 12:32 Sodium Chloride 1,000 ml @ 200 mls/hr Q5H PRN IV WITH DIALYSIS 02/21/17 10:55 02/21/17 14:48 Mannitol (Mannitol Inj) 12.5 gm UNSCH PRN IV WITH DIALYSIS 02/21/17 11:00 02/21/17 14:48 Albumin Human 100 ml @ 60 mls/hr UNSCH PRN IV WITH DIALYSIS 02/21/17 11:00 02/25/17 13:37 Heparin Sodium (Porcine) (Heparin Inj) UNSCH PRN .XX WITH DIALYSIS 02/21/17 11:00 02/25/17 13:37 Gentamicin Sulfate (Gentamicin (Dialysis) Inj) 20 mg UNSCH PRN OTHER WITH DIALYSIS 02/21/17 11:00 02/25/17 13:38 Albuterol/ Ipratropium (Duoneb Neb) 1 ampule Q4HR NEB INH 02/22/17 16:00 02/26/17 11:18 Metronidazole 100 ml @ 100 mls/hr Q8H IV 02/23/17 12:00 02/26/17 05:22 Levofloxacin/ Dextrose 50 ml @ 50 mls/hr Q24H IV 02/23/17 11:00 02/25/17 11:00 Insulin Aspart (NovoLOG SUPPLEMENTAL SCALE) 1 ACHS SLIDING SCALE SQ 02/24/17 12:00 02/25/17 12:00 Insulin Detemir (Levemir Inj) 5 units Q12HR SQ 02/25/17 09:00 02/26/17 08:52 Lactobacillus Acidophilus (Lactinex) 1 tab TID PO 02/25/17 13:00 02/26/17 08:52 Objective Remarks GENERAL: Elderly male supine in bed in restraints. On 2L O2 via NC SKIN: Warm and dry. HEAD: Normocephalic. NGT in place, receiving TF. EYES: No injection or drainage. NECK: Supple, trachea midline. CARDIOVASCULAR: +S1/S2 RESPIRATORY: anterior amador clear. GASTROINTESTINAL: Abdomen soft, non-tender, nondistended. EXTREMITIES: No cyanosis NEUROLOGICAL: awake, answering questions. following commands. Assessment/Plan Problem List: (1) thrombocytopenia Plan: 02/26: clinically without bleeding. coags remains prolonged. platelets with slight decrease. will monitor. no transfusion needed at this time. -- multifactorial due to sepsis, DIC and medications (2) acute renal failure, history of chronic kidney disease; possible ATN Plan: --on dialysis Assessment 77y/o male admited with sepsis. h/o diabetes mellitus, hypertension, hypercholesterolemia and questionable developmental delay. chronic renal failure. Attending Statement awake on Dialysis plat are low but stable. No bleeding. monitor cbc Alba Figueredo Feb 26, 2017 11:37 Alejandra Fraire MD Feb 27, 2017 06:25
[2017-02-26] MEDS: LEVOFLOXACIN 250 MG PREMIX INJ 50 ML IV SCH ×2 (12:05)
--- NOTE | 2017-02-26 14:04 | HHI.NPPN ---
Subjective General Problems: Mebatolic Acidosis Renal Failure: Chronic, Acute Interval History He is sleepy, does not answer questions. Had dialysis yesterday. (Gely Dill) Review of Systems General General Remarks unable to evaluate (Gely Dill) Objective Data Data Vital Signs Date Time Temp Pulse Resp B/P (MAP) Pulse Ox O2 Delivery O2 Flow Rate FiO2 02/26/17 12:00 97.8 93 22 126/71 (89) 100 02/26/17 12:00 93 02/26/17 10:00 85 02/26/17 10:00 97.8 93 22 126/71 (89) 100 02/26/17 10:00 93 02/26/17 08:21 100 Nasal Cannula 2.00 02/26/17 08:00 84 02/26/17 08:00 97.8 79 21 115/58 (77) 100 02/26/17 06:00 85 02/26/17 04:00 97.2 84 23 117/70 (86) 02/26/17 04:00 85 02/26/17 02:00 84 02/26/17 00:00 97.4 80 22 115/62 (79) 99 02/26/17 00:00 80 02/25/17 22:00 79 02/25/17 20:00 97.8 79 21 115/58 (77) 100 02/25/17 20:00 79 02/25/17 19:50 100 21 02/25/17 19:00 79 02/25/17 18:45 79 02/25/17 18:30 79 02/25/17 18:15 79 02/25/17 18:00 80 02/25/17 17:00 76 02/25/17 17:00 76 15 108/64 (79) 100 02/25/17 16:25 75 02/25/17 16:25 75 30 108/57 (74) 84 02/25/17 16:16 73 19 111/56 (74) 100 02/25/17 16:16 73 02/25/17 16:01 73 27 107/80 (89) 100 02/25/17 16:01 73 02/25/17 16:00 73 02/25/17 16:00 73 23 100 02/25/17 14:15 72 (Gely Dill) -: 02/26/17 0516 02/26/17 0516 Imaging Last [address] 02/25/17 0807 Signed Impressions: Service Date/Time: Saturday, February 25, 2017 11:31 - CONCLUSION: Negative for an acute process. Rylan Wang MD FACR Hepatobiliary Scan Nuclear Medicine 02/24/17 0000 Signed Impressions: Service Date/Time: Friday, February 24, 2017 12:33 - CONCLUSION: 1. Lack of visualization of the gallbladder. We will have the patient return for delayed imaging. At this point acute cholecystitis versus chronic cholecystitis. Dontrell Mcqueen Jr., MD ADDENDUM: 24-hour delayed imaging shows activity within the gallbladder. This would be consistent with chronic cholecystitis. Dontrell Mcqueen Jr., MD Tubes & Lines: Vas-Cath Tubes & Lines Comment NG tube Drip Comment None (Gely Dill) Physical Exam General Appearance: No Acute Distress, Comfortable, Sleeping, Malnourished Appearance Remarks Disheveled (Gely Dill) Eyes Eye Exam: Pupils Equal (Gely Dill) Throat Throat Exam: Oral Mucosa [place] & Moist (Gely Dill) Pulmonary Resp Exam: Clear Bilaterally, Breath Sounds Equal (Gely Dill) Cardiology CV Exam: Regular, Normal Sinus Rhythm, Good Perfusion (Gely Dill) Gastrointestinal/Abdomen GI Exam: Soft, Non-Tender, Bowel Sounds Present (Gely Dill) Genitourinary Exam: Bladder Non-Palpable (Gely Dill) Musculoskeletal MS Exam: Joints Intact, Normal Tone, Unable to Ambulate (Gely Dill) Integumentary Skin Exam: Clear, Warm, Dry, Intact (Gely Dill) Extremeties Extremities Exam: No Edema, Pedal Pulses Palpable (Gely Dill) Neurologic Neuro Exam: Awake, Moving All Extremities Neuro Remarks incomprehensible speech (Gely Dill) Assessment/Plan Assessment Summary: HERVE/Acute Renal Failure, Acute Tubular Necrosis, Diabetes Mellitus Electrolyte Assessment: Metabolic Acidosis Problem List: (1) Acute renal failure ICD Codes: N17.9 - Acute kidney failure, unspecified Status: Acute Plan: This patient has underlying renal impairment, creatinine 1.8-2 at baseline He has 1.2 g proteinuria, which 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 HERVE due to ATN secondary to dehydration, sepsis, and DKA Vascath placed and HD started 02/21, on M-W- HD as needed 1.5L UF yesterday He is oliguric, monitor output and await recovery phase valenzuela has been removed, incontinent currently, have asked for a condom catheter to be placed Replace KCL via NG tube Off IVF Passed swallow for honey thickened liquids Avoid nephrotoxic agents Palliative care is following to address goals of care (2) DKA (diabetic ketoacidoses) ICD Codes: E13.10 - Other specified diabetes mellitus with ketoacidosis without coma Status: Acute Plan: DKA resolved, difficulty controlling glucose, variable glucose, in 200s today continue to adjust insulin with primary team. (3) Sepsis ICD Codes: A41.9 - Sepsis, unspecified organism Status: Acute Plan: Elevated lactic acid He is on Flagyl and Levaquin 1/2 blood cultures with staph hominis, likely contaminant HIDA scan taken, unable to visualize GB, acute vs chronic merissa, repeat HIDA ordered (4) Elevated troponin ICD Codes: R74.8 - Abnormal levels of other serum enzymes Plan: cardiology has evaluated suspect demand ischemia as etiology of elevated troponin levels 2D echo shows EF 25% (5) Dehydration with hypernatremia ICD Codes: E87.0 - Hyperosmolality and hypernatremia Status: Acute Plan: Corrected, monitor for recurrence Plan . (Gely DillP) Problem List: (1) Acute renal failure ICD Codes: N17.9 - Acute kidney failure, unspecified Status: Acute Plan: This patient has underlying renal impairment, creatinine 1.8-2 at baseline He has 1.2 g proteinuria, which 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 HERVE due to ATN secondary to dehydration, sepsis, and DKA Vascath placed and HD started 02/21, on M-W-F HD as needed 1.5L UF yesterday He is oliguric, monitor output and await recovery phase valenzuela has been removed, incontinent currently, have asked for a condom catheter to be placed Replace KCL via NG tube Off IVF Passed swallow for honey thickened liquids Avoid nephrotoxic agents Palliative care is following to address goals of care (2) DKA (diabetic ketoacidoses) ICD Codes: E13.10 - Other specified diabetes mellitus with ketoacidosis without coma Status: Acute Plan: DKA resolved, difficulty controlling glucose, variable glucose, in 200s today continue to adjust insulin with primary team. (3) Sepsis ICD Codes: A41.9 - Sepsis, unspecified organism Status: Acute Plan: Elevated lactic acid He is on Flagyl and Levaquin 1/2 blood cultures with staph hominis, likely contaminant HIDA scan taken, unable to visualize GB, acute vs chronic merissa, repeat HIDA ordered (4) Elevated troponin ICD Codes: R74.8 - Abnormal levels of other serum enzymes Plan: cardiology has evaluated suspect demand ischemia as etiology of elevated troponin levels 2D echo shows EF 25% (5) Dehydration with hypernatremia ICD Codes: E87.0 - Hyperosmolality and hypernatremia Status: Acute Plan: Corrected, monitor for recurrence Plan patient was seen and examined. He remains oliguric, avoid nephrotoxic agents. Dialysis prn. (Mc Quintanilla MD) Problem Qualifiers (1) Acute renal failure: Qualified Codes: N17.9 - Acute kidney failure, unspecified (2) DKA (diabetic ketoacidoses): (3) Sepsis: Qualified Codes: A41.9 - Sepsis, unspecified organism Gely Dill Feb 26, 2017 14:04 Mc Quintanilla MD Feb 26, 2017 20:43
[2017-02-26] MEDS ORDERED: POTASSIUM CHLORIDE 20 MEQ PWD PACKET PO ONE ×2 (14:15)
--- NOTE | 2017-02-26 15:35 | HHI.HCPN ---
Reason for visit a. To assist with evaluation and management of symptoms including: Agitation, restlessness, encephalopathy b. To assist medical decision maker(s) with: better understanding of current medical conditions; weighing benefits/burdens of medical treatment options; making medical treatment decisions. . Subjective/Interval History INTERVAL NOTE: The patient remains afebrile and encephalopathic. Again today, he is even more alert, and he is answering yes and no questions, saying a few words to his daughter. He follows simple commands. He denies pain, specifically any abdominal pain. His platelet count is up to 58,000, and he remains on dialysis. Orders are entered to transfer him out of the intensive care unit. . Family/friend interactions His daughter is at the bedside. She is encouraged by his improving alertness and his ability to communicate now. She says she continues to pray that this will continue getting better and she wants to continue full aggressive care. She also notes that his kidney failure is felt to be due to ATN, and she is hoping that that may eventually resolve also. . Advance Directives Living Will: Never completed Health Care Surrogate: Never completed Durable Power of Curriculum Assistant Principal: Never completed Objective Vital Signs Date Time Temp Pulse Resp B/P (MAP) Pulse Ox O2 Delivery O2 Flow Rate FiO2 02/26/17 14:00 93 02/26/17 12:00 97.8 93 22 126/71 (89) 100 02/26/17 12:00 93 02/26/17 10:00 85 02/26/17 10:00 97.8 93 22 126/71 (89) 100 02/26/17 10:00 93 02/26/17 08:21 100 Nasal Cannula 2.00 02/26/17 08:00 84 02/26/17 08:00 97.8 79 21 115/58 (77) 100 02/26/17 06:00 85 02/26/17 04:00 97.2 84 23 117/70 (86) 02/26/17 04:00 85 02/26/17 02:00 84 02/26/17 00:00 97.4 80 22 115/62 (79) 99 02/26/17 00:00 80 02/25/17 22:00 79 02/25/17 20:00 97.8 79 21 115/58 (77) 100 02/25/17 20:00 79 02/25/17 19:50 100 21 02/25/17 19:00 79 02/25/17 18:45 79 02/25/17 18:30 79 02/25/17 18:15 79 02/25/17 18:00 80 02/25/17 17:00 76 02/25/17 17:00 76 15 108/64 (79) 100 02/25/17 16:25 75 02/25/17 16:25 75 30 108/57 (74) 84 02/25/17 16:16 73 19 111/56 (74) 100 02/25/17 16:16 73 02/25/17 16:01 73 27 107/80 (89) 100 02/25/17 16:01 73 02/25/17 16:00 73 02/25/17 16:00 73 23 100 Intake & Output 02/26/17 02/26/17 07:00 19:00 Intake Total 678 ml Output Total 45 ml Balance 633 ml Tube Feeding 558 ml Other 120 ml Output Urine Total 45 ml # Bowel Movements 1 Physical Exam CONSTITUTIONAL/GENERAL: This is an elderly, weak, confused patient, in no apparent distress. TUBES/LINES/DRAINS: Vas-Cath right neck, left subclavian line, supplemental oxygen, 4-point restraints, SCDs NECK: Trachea midline. Supple, nontender. No palpable thyroid enlargement or nodularity. CARDIOVASCULAR: Regular rate and rhythm without murmurs, gallops, or rubs. No JVD. Peripheral pulses symmetric. RESPIRATORY/CHEST: Symmetric, unlabored respirations. A few scattered rhonchi are present, breath sounds are diminished. GASTROINTESTINAL: Abdomen soft, non-tender, nondistended. No hepato-splenomegaly , or palpable masses. No guarding. Bowel sounds present. GENITOURINARY: Without palpable bladder distension. Scott catheter in place. MUSCULOSKELETAL: Extremities without clubbing, cyanosis, or edema. No joint tenderness or effusion noted. No calf tenderness. No mottling or clubbing. NEUROLOGICAL: Alert, follows simple commands, and answers yes/no questions. Says a few words now PSYCHIATRIC: Has been agitated and restless, pulling at lines and tubes, still being kept in 4-point restraints . Diagnostic Tests Laboratory Laboratory Tests Test 02/23/17 23:09 02/24/17 04:17 02/25/17 03:54 02/25/17 10:00 Activated Partial Thromboplast Time 42.8 SEC (24.3-30.1) 40.6 SEC (24.3-30.1) 38.6 SEC (24.3-30.1) White Blood Count 7.8 TH/MM3 (4.0-11.0) 7.3 TH/MM3 (4.0-11.0) Red Blood Count 3.06 MIL/MM3 (4.50-5.90) 3.18 MIL/MM3 (4.50-5.90) Hemoglobin 9.3 GM/DL (13.0-17.0) 9.5 GM/DL (13.0-17.0) Hematocrit 28.1 % (39.0-51.0) 28.7 % (39.0-51.0) Mean Corpuscular Volume 91.8 FL (80.0-100.0) 90.1 FL (80.0-100.0) Mean Corpuscular Hemoglobin 30.3 PG (27.0-34.0) 29.8 PG (27.0-34.0) Mean Corpuscular Hemoglobin Concent 33.0 % (32.0-36.0) 33.1 % (32.0-36.0) Red Cell Distribution Width 16.7 % (11.6-17.2) 16.5 % (11.6-17.2) Platelet Count 48 TH/MM3 (150-450) 62 TH/MM3 (150-450) Mean Platelet Volume 11.1 FL (7.0-11.0) 10.2 FL (7.0-11.0) Neutrophils (%) (Auto) 82.4 % (16.0-70.0) 76.5 % (16.0-70.0) Lymphocytes (%) (Auto) 6.9 % (9.0-44.0) 6.8 % (9.0-44.0) Monocytes (%) (Auto) 9.8 % (0.0-8.0) 14.5 % (0.0-8.0) Eosinophils (%) (Auto) 0.7 % (0.0-4.0) 2.0 % (0.0-4.0) Basophils (%) (Auto) 0.2 % (0.0-2.0) 0.2 % (0.0-2.0) Neutrophils # (Auto) 6.4 TH/MM3 (1.8-7.7) 5.6 TH/MM3 (1.8-7.7) Lymphocytes # (Auto) 0.5 TH/MM3 (1.0-4.8) 0.5 TH/MM3 (1.0-4.8) Monocytes # (Auto) 0.8 TH/MM3 (0-0.9) 1.1 TH/MM3 (0-0.9) Eosinophils # (Auto) 0.1 TH/MM3 (0-0.4) 0.1 TH/MM3 (0-0.4) Basophils # (Auto) 0.0 TH/MM3 (0-0.2) 0.0 TH/MM3 (0-0.2) CBC Comment AUTO DIFF DIFF FINAL Differential Comment AUTO DIFF CONFIRMED Ovalocytes 1+ (NORMAL) Prothrombin Time 23.5 SEC (9.8-11.6) 20.0 SEC (9.8-11.6) Prothromb Time International Ratio 2.1 RATIO 1.8 RATIO Fibrinogen 105 mg/dL (227-377) 151 mg/dL (227-377) Blood Urea Nitrogen 70 MG/DL (7-18) 91 MG/DL (7-18) Creatinine 4.75 MG/DL (0.60-1.30) 5.67 MG/DL (0.60-1.30) Random Glucose 469 MG/DL (74-106) 409 MG/DL (74-106) Calcium Level 8.0 MG/DL (8.5-10.1) 8.2 MG/DL (8.5-10.1) Sodium Level 139 MEQ/L (136-145) 142 MEQ/L (136-145) Potassium Level 4.1 MEQ/L (3.5-5.1) 3.4 MEQ/L (3.5-5.1) Chloride Level 103 MEQ/L (98-107) 106 MEQ/L (98-107) Carbon Dioxide Level 19.7 MEQ/L (21.0-32.0) 22.7 MEQ/L (21.0-32.0) Anion Gap 16 MEQ/L (5-15) 13 MEQ/L (5-15) Estimat Glomerular Filtration Rate 14 ML/MIN (>89) 12 ML/MIN (>89) Total Bilirubin 1.4 MG/DL (0.2-1.0) 1.1 MG/DL (0.2-1.0) Direct Bilirubin 0.9 MG/DL (0.0-0.2) 0.8 MG/DL (0.0-0.2) Indirect Bilirubin 0.5 MG/DL (0.0-0.8) 0.3 MG/DL (0.0-0.8) Aspartate Amino Transf (AST/SGOT) 178 U/L (15-37) 63 U/L (15-37) Alanine Aminotransferase (ALT/SGPT) 472 U/L (12-78) 322 U/L (12-78) Alkaline Phosphatase 121 U/L (45-117) 119 U/L (45-117) Total Protein 6.3 GM/DL (6.4-8.2) 6.3 GM/DL (6.4-8.2) Albumin 2.8 GM/DL (3.4-5.0) 2.6 GM/DL (3.4-5.0) Stool C. difficile Toxin (PCR) NEGATIVE (NEGATIVE) Stl C. difficile Toxin Epiderm 027 PRESUMPTIVE NEGATIVE Phosphorus Level 4.3 MG/DL (2.5-4.9) Test 02/26/17 05:16 White Blood Count 5.8 TH/MM3 (4.0-11.0) Red Blood Count 3.15 MIL/MM3 (4.50-5.90) Hemoglobin 9.3 GM/DL (13.0-17.0) Hematocrit 28.7 % (39.0-51.0) Mean Corpuscular Volume 91.3 FL (80.0-100.0) Mean Corpuscular Hemoglobin 29.5 PG (27.0-34.0) Mean Corpuscular Hemoglobin Concent 32.3 % (32.0-36.0) Red Cell Distribution Width 16.7 % (11.6-17.2) Platelet Count 58 TH/MM3 (150-450) Mean Platelet Volume 10.8 FL (7.0-11.0) Neutrophils (%) (Auto) 73.2 % (16.0-70.0) Lymphocytes (%) (Auto) 9.2 % (9.0-44.0) Monocytes (%) (Auto) 15.6 % (0.0-8.0) Eosinophils (%) (Auto) 1.9 % (0.0-4.0) Basophils (%) (Auto) 0.1 % (0.0-2.0) Neutrophils # (Auto) 4.2 TH/MM3 (1.8-7.7) Lymphocytes # (Auto) 0.5 TH/MM3 (1.0-4.8) Monocytes # (Auto) 0.9 TH/MM3 (0-0.9) Eosinophils # (Auto) 0.1 TH/MM3 (0-0.4) Basophils # (Auto) 0.0 TH/MM3 (0-0.2) CBC Comment AUTO DIFF Differential Comment AUTO DIFF CONFIRMED Ovalocytes 1+ (NORMAL) Keratocytes OCC (NORMAL) Prothrombin Time 18.6 SEC (9.8-11.6) Prothromb Time International Ratio 1.6 RATIO Activated Partial Thromboplast Time 38.1 SEC (24.3-30.1) Fibrinogen 196 mg/dL (227-377) Blood Urea Nitrogen 58 MG/DL (7-18) Creatinine 4.00 MG/DL (0.60-1.30) Random Glucose 256 MG/DL (74-106) Albumin 3.2 GM/DL (3.4-5.0) Calcium Level 8.5 MG/DL (8.5-10.1) Phosphorus Level 3.5 MG/DL (2.5-4.9) Sodium Level 140 MEQ/L (136-145) Potassium Level 3.4 MEQ/L (3.5-5.1) Chloride Level 102 MEQ/L (98-107) Carbon Dioxide Level 23.9 MEQ/L (21.0-32.0) Anion Gap 14 MEQ/L (5-15) Estimat Glomerular Filtration Rate 18 ML/MIN (>89) Result Diagram: 02/26/17 0516 02/26/17 0516 Procedures Left subclavian line 02/19/17 Vas-Cath placement 02/21/17 . Assessment and Plan Disease Oriented Problem List: (1) encephalopathy, likely due to multiple medical issues, sepsis, renal failure (2) acute renal failure, history of chronic kidney disease; possible ATN (3) elevated transaminases and abnormal HIDA scan Comment: May have cholecystitis, additional imaging pending (4) sepsis, negative culture so far (5) pneumonia on x-ray (6) uncontrolled diabetes (7) thrombocytopenia (8) cardiomyopathy, EF 25% (9) chronic kidney disease, creatinine 2.2 in 2012 (10) anemia (11) history of noncompliance (12) insulin-dependent diabetes (13) malnutrition, albumin 2.8 (14) history of DKA (15) hypertension (16) hyperlipidemia (17) DJD Symptom Scale: (1) agitation 0-10 Scale: Unable to quantify (2) encephalopathy 0-10 Scale: Unable to quantify Pertinent Non-Medical Issues Psychosocial: , 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 One daughter and 3 sons, estranged from the 3 sons. Spiritual: Not spiritual lutheran but daughter does want real estate rep visits for him. Legal: The patient lacks capacity for decision-making, and it is uncertain whether he will regain that capacity. He has 4 children, but is estranged from his 3 sons, and they have thus far been unwilling to speak with us or participate in decision-making. Therefore, the patient's daughter Jakub Crawford is his proxy decision-maker. We have made it clear that we are available to speak with any of his sons if they call. Ethical issues impacting care: . Important Contacts Daughter/HCP: Jakub Crawford [phone] Granddaughter: Renae Rocha [phone] . Prognosis Overall, the patient's prognosis is poor. He now has multisystem organ failure or dysfunction, including renal, neuro, cardiac, pulmonary, hematologic, and he is quite lethargic/weak/encephalopathic. . Code Status: Full Code Plan * FULL CODE - daughter is encouraged by his improvement, and wants to continue full aggressive care * DECISION-MAKING: The patient lacks capacity for decision-making, and the patient's daughter Jakub Crawford is his proxy decision-maker. * GOALS: Discussion with daughter 02/26/17: She is encouraged by his improving alertness and his ability to communicate now. She says she continues to pray that this will continue getting better and she wants to continue full aggressive care. She also notes that his kidney failure is felt to be due to ATN, and she is hoping that that may eventually resolve also. * SYMPTOMS: His encephalopathy is improving. He has no obvious pain or dyspnea at this time. * Palliative Care will continue to follow the patient during this hospitalization. . Time Spent Total Floor Time (mins): 39 Face to Face Time (mins): 15 >50% Counseling/Coord of Care: Yes (d/w RN) Attestation To help prompt me to consider important information that might be impacting today's encounter and assessment, information from prior notes written by myself or my colleagues may have been "brought forward" into today's note. My signature on this note, however, is an attestation that I personally performed the exam, history, and/or decision-making noted today, and, unless otherwise indicated, the interactions with patient, family, and staff as well as the review of records all occurred today. I also attest that the listed assessment and stated plan reflect my best clinical judgment today based on the combination of historical information, prior notes, and today's exam/ interactions. When time spent is documented, it refers only to time spent today by the signer, or if indicated, combined time spent today by collaborating physician/nurse practitioner. Shaneka Sandy MD Feb 26, 2017 15:35
[2017-02-27] VITALS (13 sets, daily range): BP systolic 107–129; BP diastolic 55–82; PULSE 72–94; RESP 19–22; TEMP 97.4–98.3; O2SAT 98–100
[2017-02-27] MEDS: CHLORHEXIDINE GLUCONATE 2 % 1 PACK (2 CLOTHS) TOP SCH ×2 (04:00)
[2017-02-27] MEDS: METOPROLOL TARTRATE 25 MG TAB PO SCH ×6 (05:40→21:13)
[2017-02-27] MEDS: metroNIDAZOLE 500 MG INJ 100 ML IV SCH ×2 (05:44)
[2017-02-27] MEDS: INSULIN ASPART SUPPLEMENTAL SCALE SQ SCH ×8 (08:00→20:16)
[2017-02-27] MEDS ORDERED: INSULIN DETEMIR 100 UNITS/ML VIAL SQ SCH ×4 (08:30→21:00)
[2017-02-27] MEDS: DOCUSATE SODIUM 50 MG/SENNA 8.6 MG TAB PO SCH ×4 (09:00→20:17)
--- NOTE | 2017-02-27 09:06 | HHI.IDPN ---
Subjective Subjective Remarks Patient is a 77-year-old male, admitted to the hospital, after he was found down in his apartment. He was apparently last seen about 3 days prior to admission, and he was in his usual self. EMS was called, and patient had very high blood sugar, looked clinically dehydrated, and was tachypneic. His laboratory data showed acute renal failure with a creatinine of 5.3. His WBC was normal, hemoglobin 10.6, and platelet count was 97. Prior creatinine level was between 1.8-2. His AST and ALT are also elevated. CT of the head was negative. Chest x-ray was normal. Renal ultrasound did not show any evidence of hydronephrosis. Urinalysis was unremarkable. His lactic acid was elevated. Patient was started on broad-spectrum antibiotics. His urine output remains low, and the patient started on hemodialysis. Patient has received fluid resuscitation with minimal improvement in his creatinine. 1 out of the 2 blood cultures is now reported as coag-negative staph. Patient also since admission has developed progressive worsening of his thrombocytopenia. He had been on Zosyn, and he received one dose of vancomycin today. Patient also had an ultrasound of the liver which showed evidence of gallstones, and gallbladder wall thickening, but no evidence of pericholecystic fluid. Patient is afebrile. His blood pressure is okay. He is on nasal O2. Infectious disease consultation has been requested to evaluate the patient with positive blood culture. Notes reviewed Temps ok Out of ICU HIDA c/w chronic cholecystitis Last HD 02/25 Creatinine elevated BP ok WBC normal No new (+) BC Antibiotics Levaquin Flagyl I attest that I obtained, updated or reviewed the home and current medications. Current Medications Medications (Trade) Dose Ordered Sig/Fede Route PRN Reason Start Time Stop Time Status Last Admin Dose Admin Sodium Chloride (NS Flush) 2 ml BID IV FLUSH 02/19/17 21:00 02/28/17 09:00 Pantoprazole Sodium (Protonix Inj) 40 mg DAILY IV PUSH 02/20/17 09:00 02/28/17 09:28 Heparin Sodium (Porcine) (Heparin Inj) 5,000 units Q12H SQ 02/19/17 17:00 Future Hold 02/21/17 16:36 Chlorhexidine Gluconate (Chlorhexidine 2% Cloth) Taper DAILY@04 TOP 02/20/17 04:00 02/16/18 03:59 02/25/17 02:34 Senna/Docusate Sodium (Princess-Colace) 1 tab BID PO 02/19/17 21:00 02/26/17 08:52 Aspirin (Aspirin Chew) 81 mg DAILY CHEW 02/19/17 15:15 Future Hold 02/21/17 07:46 Metoprolol Tartrate (Lopressor) 25 mg Q8HR PO 02/19/17 16:30 02/27/17 05:40 Melatonin (Melatonin) 5 mg HS PRN PO SLEEP 02/19/17 22:15 02/20/17 21:45 Insulin Aspart (NovoLOG INJ) 3 units TIDAC SQ 02/20/17 12:00 Future Hold 02/22/17 08:00 Sodium Chloride 1,000 ml @ 200 mls/hr Q5H PRN IV WITH DIALYSIS 02/21/17 10:55 02/21/17 14:48 Mannitol (Mannitol Inj) 12.5 gm UNSCH PRN IV WITH DIALYSIS 02/21/17 11:00 02/21/17 14:48 Albumin Human 100 ml @ 60 mls/hr UNSCH PRN IV WITH DIALYSIS 02/21/17 11:00 02/25/17 13:37 Heparin Sodium (Porcine) (Heparin Inj) UNSCH PRN .XX WITH DIALYSIS 02/21/17 11:00 02/25/17 13:37 Gentamicin Sulfate (Gentamicin (Dialysis) Inj) 20 mg UNSCH PRN OTHER WITH DIALYSIS 02/21/17 11:00 02/25/17 13:38 Albuterol/ Ipratropium (Duoneb Neb) 1 ampule Q2HR NEB PRN INH WHEEZING 02/22/17 14:00 02/27/17 13:18 Lactobacillus Acidophilus (Lactinex) 1 tab TID PO 02/25/17 13:00 02/28/17 13:17 Insulin Aspart (NovoLOG SUPPLEMENTAL SCALE) 1 ACHS SLIDING SCALE SQ 02/27/17 12:00 02/28/17 11:50 Insulin Detemir (Levemir Inj) 8 units DAILYAC SQ 02/28/17 08:00 02/28/17 08:00 Levofloxacin (Levaquin) 250 mg DAILY PO 02/27/17 11:00 02/28/17 09:27 Metronidazole (Flagyl) 500 mg Q8HR PO 02/27/17 14:00 02/28/17 07:30 Sodium Chloride 1,000 ml @ 60 mls/hr [id number] IV 02/27/17 13:00 02/28/17 03:00 Norepinephrine Bitartrate 4 mg/ Sodium Chloride 250 ml @ 7.5 mls/hr TITRATE PRN IV Blood pressure management 02/27/17 13:30 02/28/17 00:18 Aspirin (Ecotrin Ec) 81 mg DAILY PO 02/28/17 09:00 02/28/17 09:28 Lines LSC TLC RIJ vascath Past Medical History Type 2 diabetes Hypertension Dyslipidemia Possible developmental delay Past Surgical History Cataract extraction Dental extraction Appendectomy Allergies: Coded Allergies: No Known Allergies (Verified , 02/19/17) Objective . Vital Signs Date Time Temp Pulse Resp B/P (MAP) Pulse Ox O2 Delivery O2 Flow Rate FiO2 02/27/17 08:04 97.4 75 22 107/63 (78) 98 02/27/17 04:00 97.6 84 20 127/66 (86) 100 02/27/17 04:00 97.6 84 20 127/66 (86) 100 02/27/17 00:00 97.6 85 20 129/61 (83) 100 02/26/17 20:00 97.6 89 20 109/52 (71) 97 02/26/17 20:00 89 02/26/17 16:00 81 02/26/17 16:00 97.8 81 22 128/68 (88) 100 02/26/17 15:56 99.5 18 18 108/62 (77) 100 02/26/17 14:00 93 02/26/17 12:00 97.8 93 22 126/71 (89) 100 02/26/17 12:00 93 02/26/17 10:00 85 02/26/17 10:00 97.8 93 22 126/71 (89) 100 02/26/17 10:00 93 . Laboratory Tests Test 02/26/17 05:16 White Blood Count 5.8 TH/MM3 Red Blood Count 3.15 MIL/MM3 Hemoglobin 9.3 GM/DL Hematocrit 28.7 % Mean Corpuscular Volume 91.3 FL Mean Corpuscular Hemoglobin 29.5 PG Mean Corpuscular Hemoglobin Concent 32.3 % Red Cell Distribution Width 16.7 % Platelet Count 58 TH/MM3 Mean Platelet Volume 10.8 FL Neutrophils (%) (Auto) 73.2 % Lymphocytes (%) (Auto) 9.2 % Monocytes (%) (Auto) 15.6 % Eosinophils (%) (Auto) 1.9 % Basophils (%) (Auto) 0.1 % Neutrophils # (Auto) 4.2 TH/MM3 Lymphocytes # (Auto) 0.5 TH/MM3 Monocytes # (Auto) 0.9 TH/MM3 Eosinophils # (Auto) 0.1 TH/MM3 Basophils # (Auto) 0.0 TH/MM3 CBC Comment AUTO DIFF Differential Comment AUTO DIFF CONFIRMED Ovalocytes 1+ Keratocytes OCC Laboratory Tests Test 02/25/17 10:00 02/26/17 05:16 Blood Urea Nitrogen 91 MG/DL 58 MG/DL Creatinine 5.67 MG/DL 4.00 MG/DL Random Glucose 409 MG/DL 256 MG/DL Albumin 2.6 GM/DL 3.2 GM/DL Calcium Level 8.2 MG/DL 8.5 MG/DL Phosphorus Level 4.3 MG/DL 3.5 MG/DL Sodium Level 142 MEQ/L 140 MEQ/L Potassium Level 3.4 MEQ/L 3.4 MEQ/L Chloride Level 106 MEQ/L 102 MEQ/L Carbon Dioxide Level 22.7 MEQ/L 23.9 MEQ/L Anion Gap 13 MEQ/L 14 MEQ/L Estimat Glomerular Filtration Rate 12 ML/MIN 18 ML/MIN Total Bilirubin 1.1 MG/DL Direct Bilirubin 0.8 MG/DL Indirect Bilirubin 0.3 MG/DL Aspartate Amino Transf (AST/SGOT) 63 U/L Alanine Aminotransferase (ALT/SGPT) 322 U/L Alkaline Phosphatase 119 U/L Total Protein 6.3 GM/DL Imaging Last Impressions Hepatobiliary Scan Nuclear Medicine 02/24/17 0000 Signed Impressions: Service Date/Time: Friday, February 24, 2017 12:33 - CONCLUSION: 1. Lack of visualization of the gallbladder. We will have the patient return for delayed imaging. At this point acute cholecystitis versus chronic cholecystitis. Dontrell Mcqueen Jr., MD Chest X-Ray 02/21/17 0600 Signed Impressions: Service Date/Time: Tuesday, February 21, 2017 04:36 - CONCLUSION: Bibasilar areas of suspected consolidation/atelectasis and effusion being worse on the right. The findings have worsened since the prior exam. Flakito Chan MD Liver Ultrasound 02/20/17 0000 Signed Impressions: Service Date/Time: Monday, February 20, 2017 10:51 - CONCLUSION: Gallstones and gallbladder wall thickening. There is no intrahepatic biliary duct dilatation. Rylan Wang MD FACR Head CT 02/19/17 1205 Signed Impressions: Service Date/Time: February 13:02 - CONCLUSION: 1. Cortical atrophy. 2. No acute abnormality identified. The examination is stable compared to prior dated 04/17/12. Sharath Wang MD Renal Ultrasound 02/19/17 0000 Signed Impressions: Service Date/Time: February 17:19 - CONCLUSION: No evidence of hydronephrosis. Indwelling Scott catheter with collapsed bladder in thickened bladder wall. Cal Tomlinson MD Physical Exam GENERAL: awake and alert, not in respiratory distress. Following all commands SKIN: Cool and moist. No generalized rash, no ecchymoses and no evidence of embolic lesions. HEAD: Atraumatic. Normocephalic. No temporal wasting, or tenderness. EYES: [place] conjunctiva. No petechia or hemorrhage. Extraocular movements full and intact. No scleral icterus. No injection or drainage. EARS, NOSE AND THROAT: Nose without bleeding or purulent nasal discharge. Did not cooperate and Im unable to examine his oropharynx NECK: Trachea midline. Supple and not tender, no meningeal signs CARDIOVASCULAR: Regular rate and rhythm. No murmurs, rubs or gallops heard RESPIRATORY: Clear to auscultation, but decreased at the bases. Breath sounds equal bilaterally. No rales, wheezing or rhonchi ABDOMEN: Soft, nondistended, bowel sounds present and normoactive. Min tenderness, no guarding. No rebound. No organomegaly. EXTREMITIES: No clubbing, cyanosis, or edema.No joint effusion, has good ROM. No calf tenderness. Well perfused and warm. NEUROLOGICAL: Awake and alert. 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 Moves both LE. No Babinski PSYCHIATRIC: calm and cooperative. LINE: No evidence of infection Assessment & Plan Remarks IMPRESSION One (+) BC with Coag Neg Staph C/W contaminant Possible sepsis on admission, source? - CXR clear, UA ok - ?biliary tree, has elevated LFT, R side tenderness, GB wall thickening and gallstones - chronic merissa on HIDA scan Acute renal failure, on CKD Baseline ?mental delay - he is following all commands, knows his age, knows he is at [facility] Thrombocytopenia, better - ?Abx - DIC screen (+) Bilateral infiltrates likely fluid overload RECOMMENDATION Continue Levaquin and Flagyl - change to po Follow LFT - improving Monitor progress Follow C/S D/W Sugar Martinez MD Feb 27, 2017 09:06
[2017-02-27] MEDS: LACTOBACILLUS ACIDOPHILUS TAB PO SCH ×6 (09:28→17:57)
[2017-02-27] MEDS: PANTOPRAZOLE SODIUM 40 MG VIAL IV PUSH SCH ×2 (09:28)
[2017-02-27] MEDS: SODIUM CHLORIDE 0.9% FLUSH 10 ML FLUSH IV FLUSH SCH ×4 (09:28→21:14)
--- NOTE | 2017-02-27 09:59 | PD.ONC.PN ---
Subjective Subjective Remarks Afebrile overnight. Patient resting in bed in nad. Transferred to med/surg floor. No complaints offered. Objective Data Date Time Temp Pulse Resp B/P (MAP) Pulse Ox O2 Delivery O2 Flow Rate FiO2 02/27/17 08:04 97.4 75 22 107/63 (78) 98 02/27/17 04:00 97.6 84 20 127/66 (86) 100 02/27/17 04:00 97.6 84 20 127/66 (86) 100 02/27/17 00:00 97.6 85 20 129/61 (83) 100 02/26/17 20:00 97.6 89 20 109/52 (71) 97 02/26/17 20:00 89 02/26/17 16:00 81 02/26/17 16:00 97.8 81 22 128/68 (88) 100 02/26/17 15:56 99.5 18 18 108/62 (77) 100 02/26/17 14:00 93 02/26/17 12:00 97.8 93 22 126/71 (89) 100 02/26/17 12:00 93 02/26/17 10:00 85 02/26/17 10:00 97.8 93 22 126/71 (89) 100 02/26/17 10:00 93 02/27/17 02/27/17 02/27/17 07:00 15:00 23:00 Output Total 300 ml Balance -300 ml Result Diagram: 02/26/17 0516 02/26/17 0516 Administered Medications Medications (Trade) Dose Ordered Sig/Fede Route PRN Reason Start Time Stop Time Status Last Admin Dose Admin Sodium Chloride (NS Flush) 2 ml BID IV FLUSH 02/19/17 21:00 02/27/17 09:28 Pantoprazole Sodium (Protonix Inj) 40 mg DAILY IV PUSH 02/20/17 09:00 02/27/17 09:28 Heparin Sodium (Porcine) (Heparin Inj) 5,000 units Q12H SQ 02/19/17 17:00 Future Hold 02/21/17 16:36 Chlorhexidine Gluconate (Chlorhexidine 2% Cloth) Taper DAILY@04 TOP 02/20/17 04:00 02/16/18 03:59 02/25/17 02:34 Senna/Docusate Sodium (Princess-Colace) 1 tab BID PO 02/19/17 21:00 02/26/17 08:52 Aspirin (Aspirin Chew) 81 mg DAILY CHEW 02/19/17 15:15 Future Hold 02/21/17 07:46 Metoprolol Tartrate (Lopressor) 25 mg Q8HR PO 02/19/17 16:30 02/27/17 05:40 Melatonin (Melatonin) 5 mg HS PRN PO SLEEP 02/19/17 22:15 02/20/17 21:45 Insulin Aspart (NovoLOG INJ) 3 units TIDAC SQ 02/20/17 12:00 Future Hold 02/22/17 08:00 Sodium Chloride 1,000 ml @ 200 mls/hr Q5H PRN IV WITH DIALYSIS 02/21/17 10:55 02/21/17 14:48 Mannitol (Mannitol Inj) 12.5 gm UNSCH PRN IV WITH DIALYSIS 02/21/17 11:00 02/21/17 14:48 Albumin Human 100 ml @ 60 mls/hr UNSCH PRN IV WITH DIALYSIS 02/21/17 11:00 02/25/17 13:37 Heparin Sodium (Porcine) (Heparin Inj) UNSCH PRN .XX WITH DIALYSIS 02/21/17 11:00 02/25/17 13:37 Gentamicin Sulfate (Gentamicin (Dialysis) Inj) 20 mg UNSCH PRN OTHER WITH DIALYSIS 02/21/17 11:00 02/25/17 13:38 Lactobacillus Acidophilus (Lactinex) 1 tab TID PO 02/25/17 13:00 02/27/17 09:28 Objective Remarks GENERAL: Elderly male lying in bed in nad. SKIN: Warm and dry. HEAD: Normocephalic. EYES: No injection or drainage. NECK: Supple, trachea midline. CARDIOVASCULAR: +S1/S2 RESPIRATORY: anterior amador clear. GASTROINTESTINAL: Abdomen soft, non-tender, nondistended. EXTREMITIES: No cyanosis NEUROLOGICAL: awake. following commands. answering questions. somewhat garbled speech. Assessment/Plan Problem List: (1) thrombocytopenia Plan: 02/27: check CBC, coags today. monitor for bleeding. -- multifactorial due to sepsis, DIC and medications (2) acute renal failure, history of chronic kidney disease; possible ATN Plan: --on dialysis Assessment 77y/o male admited with sepsis. h/o diabetes mellitus, hypertension, hypercholesterolemia and questionable developmental delay. chronic renal failure. Attending Statement No complaint offer thrombocytopenia due to to sepsis. On dialysis Monitor platelet count. The exam, history, and the medical decision-making described in the above note were completed with the assistance of the mid-level provider. I reviewed and agree with the findings presented. I attest that I had a [id number] encounter with the patient on the same day, and personally performed and documented my assessment and findings in the medical record. Alba Figueredo Feb 27, 2017 09:58 Alejandra Fraire MD Feb 27, 2017 15:59
--- NOTE | 2017-02-27 10:06 | HHI.PR ---
Subjective Remarks F/U Encephalopathy. States he is alright. No complaints. Oriented to person , place and situation not to date. Ff commands moves BUE. Tolerated diet but only consumed 20%. Dw RN Objective Vitals Vital Signs Date Time Temp Pulse Resp B/P (MAP) Pulse Ox O2 Delivery O2 Flow Rate FiO2 02/27/17 10:03 98 02/27/17 08:04 97.4 75 22 107/63 (78) 98 02/27/17 04:00 97.6 84 20 127/66 (86) 100 02/27/17 04:00 97.6 84 20 127/66 (86) 100 02/27/17 00:00 97.6 85 20 129/61 (83) 100 02/26/17 20:00 97.6 89 20 109/52 (71) 97 02/26/17 20:00 89 02/26/17 16:00 81 02/26/17 16:00 97.8 81 22 128/68 (88) 100 02/26/17 15:56 99.5 18 18 108/62 (77) 100 02/26/17 14:00 93 02/26/17 12:00 97.8 93 22 126/71 (89) 100 02/26/17 12:00 93 I/O 02/26/17 02/26/17 02/26/17 02/27/17 02/27/17 02/27/17 07:00 15:00 23:00 07:00 15:00 23:00 Intake Total 678 ml Output Total 45 ml 300 ml Balance 633 ml -300 ml Tube Feeding 558 ml Other 120 ml Output Urine Total 45 ml 300 ml # Bowel Movements 1 2 Result Diagram: 02/26/17 0516 02/26/17 0516 Imaging Last Impressions Head CT 02/25/17 0807 Signed Impressions: Service Date/Time: Saturday, February 25, 2017 11:31 - CONCLUSION: Negative for an acute process. Rylan Wang MD FACR Hepatobiliary Scan Nuclear Medicine 02/24/17 0000 Signed Impressions: Service Date/Time: Friday, February 24, 2017 12:33 - CONCLUSION: 1. Lack of visualization of the gallbladder. We will have the patient return for delayed imaging. At this point acute cholecystitis versus chronic cholecystitis. Dontrell Mcqueen Jr., MD ADDENDUM: 24-hour delayed imaging shows activity within the gallbladder. This would be consistent with chronic cholecystitis. Dontrell Mcqueen Jr., MD Chest X-Ray 02/21/17 0600 Signed Impressions: Service Date/Time: Tuesday, February 21, 2017 04:36 - CONCLUSION: Bibasilar areas of suspected consolidation/atelectasis and effusion being worse on the right. The findings have worsened since the prior exam. Flakito Chan MD Liver Ultrasound 02/20/17 0000 Signed Impressions: Service Date/Time: Monday, February 20, 2017 10:51 - CONCLUSION: Gallstones and gallbladder wall thickening. There is no intrahepatic biliary duct dilatation. Rylan Wang MD FACR Renal Ultrasound 02/19/17 0000 Signed Impressions: Service Date/Time: February 17:19 - CONCLUSION: No evidence of hydronephrosis. Indwelling Scott catheter with collapsed bladder in thickened bladder wall. Cal Tomlinson MD Objective Remarks GENERAL: WD WN on 2L NC SKIN: Warm and dry. HEAD: Atraumatic. Normocephalic. EYES: Pupils equal and round. No scleral icterus. No injection or drainage. ENT: No nasal bleeding or discharge. Mucous membranes pink and moist. NECK: Trachea midline. No JVD. CARDIOVASCULAR: Regular rate and rhythm. Systolic murmur noted RESPIRATORY: No accessory muscle use. Decreased Breath sounds equal bilaterally. GASTROINTESTINAL: Abdomen soft, non-tender, nondistended. MUSCULOSKELETAL: Extremities without clubbing, cyanosis, or edema. No obvious deformities. NEUROLOGICAL: Awake and alert. No obvious cranial nerve deficits. Motor grossly within normal limits. Procedures Vascath A/P Problem List: (1) Acute metabolic encephalopathy ICD Code: G93.41 - Metabolic encephalopathy (2) Altered mental status ICD Code: R41.82 - Altered mental status, unspecified Status: Acute (3) DKA (diabetic ketoacidoses) ICD Code: E13.10 - Other specified diabetes mellitus with ketoacidosis without coma Status: Resolved (4) Non-STEMI (non-ST elevated myocardial infarction) ICD Code: I21.4 - Non-ST elevation (NSTEMI) myocardial infarction Status: Acute (5) Dehydration with hypernatremia ICD Code: E87.0 - Hyperosmolality and hypernatremia Status: Resolved (6) Sepsis ICD Code: A41.9 - Sepsis, unspecified organism Status: Acute (7) UTI (urinary tract infection) ICD Code: N39.0 - Urinary tract infection, site not specified Status: Acute (8) Acute renal failure ICD Code: N17.9 - Acute kidney failure, unspecified Status: Acute (9) Hyperglycemia ICD Code: R73.9 - Hyperglycemia, unspecified Status: Acute (10) Lactic acidemia ICD Code: E87.2 - Acidosis (11) Transaminitis ICD Code: R74.0 - Nonspecific elevation of levels of transaminase and lactic acid dehydrogenase [LDH] (12) Respiratory insufficiency ICD Code: R06.89 - Other abnormalities of breathing Assessment and Plan Acute encephalopathy, mulitfactorial. Improving -repeated CT with no acute abnormality. -Treat agitation with when necessary Haldol -continue to monitor. Respiratory insufficiency - keep on oxygen as needed to keep O2 sat >90% - continue neb treatment. elevated troponin Hypertension cardiomyopathy -echo with EF 25% - Aspirin on hold due to thrombocytopenia. - Metoprolol 25 mg every 8 hours - Avoid statins due to transaminitis - evaluated by cardiology. Transaminitis chronic cholecystitis - Monitor liver enzymes Acute kidney injury superimposed on chronic kidney disease Severe dehydration - Baseline creatinine 1.8 to 2. Acute worsening secondary to severe dehydration , ATN and DKA - Monitor renal function closely. - HD initiated. - Nephrology following. Probable sepsis UTI -- one bottle of the blood cultures with staph coag. negative-likely contamination. -ID consult appreciated and started on Levaquin and Flagyl. diarrhea- stool negative for c-diff. Anemia thrombocytopenia from Sepsis/DIV -heparin and aspirin on hold. -hematology following. -Monitor CBC. DKA-resolved but hyperglycemic hypoglycemic episodes- this has resolved. -continue sliding scale coverage. -adjust levemir, check A1c -continue to monitor for hypoglycemia PROPH: - Bilateral lower extremity SCDs. hold Heparin as noted above. - continue Protonix. Problem Qualifiers (1) Altered mental status: Qualified Codes: R41.82 - Altered mental status, unspecified (2) DKA (diabetic ketoacidoses): (3) Sepsis: Qualified Codes: A41.9 - Sepsis, unspecified organism (4) UTI (urinary tract infection): (5) Acute renal failure: Qualified Codes: N17.9 - Acute kidney failure, unspecified Isrrael Tamayo MD Feb 27, 2017 10:06
--- NOTE | 2017-02-27 10:39 | HHI.NPPN ---
Subjective General Problems: Mebatolic Acidosis Renal Failure: Chronic, Acute Interval History Remains oliguric. Moved out of ICU. Due today for dialysis. (Gely Dill) Review of Systems General General Remarks unable to evaluate (Gely Dill) Objective Data Data Vital Signs Date Time Temp Pulse Resp B/P (MAP) Pulse Ox O2 Delivery O2 Flow Rate FiO2 02/27/17 10:03 98 02/27/17 10:00 94 02/27/17 08:04 97.4 75 22 107/63 (78) 98 02/27/17 08:00 Nasal Cannula 2.00 02/27/17 04:00 97.6 84 20 127/66 (86) 100 02/27/17 04:00 97.6 84 20 127/66 (86) 100 02/27/17 00:00 97.6 85 20 129/61 (83) 100 02/26/17 20:00 97.6 89 20 109/52 (71) 97 02/26/17 20:00 89 02/26/17 16:00 81 02/26/17 16:00 97.8 81 22 128/68 (88) 100 02/26/17 15:56 99.5 18 18 108/62 (77) 100 02/26/17 14:00 93 02/26/17 12:00 97.8 93 22 126/71 (89) 100 02/26/17 12:00 93 (Gely Dill) -: 02/26/17 0516 02/26/17 0516 Imaging Last [address] 02/25/17 0807 Signed Impressions: Service Date/Time: Saturday, February 25, 2017 11:31 - CONCLUSION: Negative for an acute process. Rylan Wang MD FACR Tubes & Lines: Vas-Cath Tubes & Lines Comment NG tube Drip Comment None (Gely Dill) Physical Exam General Appearance: No Acute Distress, Comfortable, Malnourished Appearance Remarks Disheveled (Gely Dill) Eyes Eye Exam: Pupils Equal (Gely Dlil) Throat Throat Exam: Oral Mucosa [place] & Moist (Gely Dill) Neck Neck Exam: Neck Supple (Gely Dill) Pulmonary Resp Exam: Clear Bilaterally, Breath Sounds Equal (Gely Dill) Cardiology CV Exam: Regular, Normal Sinus Rhythm, Good Perfusion (Gely Dill) Gastrointestinal/Abdomen GI Exam: Soft, Non-Tender, Bowel Sounds Present (Gely DillP) Genitourinary Exam: Bladder Non-Palpable (Gely Dill) Musculoskeletal MS Exam: Joints Intact, Normal Tone, Unable to Ambulate (Gely Dill) Integumentary Skin Exam: Clear, Warm, Dry, Intact (Gely Dill) Extremeties Extremities Exam: No Edema, Pedal Pulses Palpable (Gely Dill) Neurologic Neuro Exam: Awake, Moving All Extremities Neuro Remarks incomprehensible speech (Gely Dill) Assessment/Plan Assessment Summary: HERVE/Acute Renal Failure, Acute Tubular Necrosis, Diabetes Mellitus Electrolyte Assessment: Metabolic Acidosis Problem List: (1) Acute renal failure ICD Codes: N17.9 - Acute kidney failure, unspecified Status: Acute Plan: This patient has underlying renal impairment, creatinine 1.8-2 at baseline He has 1.2 g proteinuria, which 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 HERVE due to ATN secondary to dehydration, sepsis, and DKA Vascath placed and HD started 02/21, on -- HD Due today for dialysis He is oliguric, monitor output and await recovery phase valenzuela has been removed, has condom catheter Repeat labs have been ordered Off IVF Passed swallow , off tube feeding Avoid nephrotoxic agents HD on Thursday if needed Palliative care is following to address goals of care (2) DKA (diabetic ketoacidoses) ICD Codes: E13.10 - Other specified diabetes mellitus with ketoacidosis without coma Status: Resolved Plan: DKA resolved, difficulty controlling glucose, variable glucose, better today continue to adjust insulin with primary team. (3) Sepsis ICD Codes: A41.9 - Sepsis, unspecified organism Status: Acute Plan: Elevated lactic acid He is on Flagyl and Levaquin 1/2 blood cultures with staph hominis, likely contaminant HIDA scan taken, unable to visualize GB, acute vs chronic merissa, repeat HIDA ordered (4) Elevated troponin ICD Codes: R74.8 - Abnormal levels of other serum enzymes Plan: cardiology has evaluated suspect demand ischemia as etiology of elevated troponin levels 2D echo shows EF 25% (5) Dehydration with hypernatremia ICD Codes: E87.0 - Hyperosmolality and hypernatremia Status: Resolved Plan: Corrected, monitor for recurrence Plan (Gely Dill) Plan patient was seen and examined. He became poorly responsive during dialysis. He was transferred to ICU. Agree with above assessment and plan. His prognosis is guarded. Continue to monitor his fluid and electrolyte status. (Mc Quintanilla MD) Problem Qualifiers (1) Acute renal failure: Qualified Codes: N17.9 - Acute kidney failure, unspecified (2) DKA (diabetic ketoacidoses): (3) Sepsis: Qualified Codes: A41.9 - Sepsis, unspecified organism Gely Dill Feb 27, 2017 10:39 Mc Quintanilla MD Feb 27, 2017 14:40
[2017-02-27 12:56] LABS: AUTOMATED NEUTROPHIL # 5.6 TH/MM3 (1.8-7.7); BASOPHIL % 0.1 % (0.0-2.0); EOSINOPHIL # 0.2 TH/MM3 (0-0.4); EOSINOPHIL % 2.3 % (0.0-4.0); HEMATOCRIT 27.9 % (39.0-51.0); HEMOGLOBIN 9.4 GM/DL (13.0-17.0); LYMPH % 8.8 % (9.0-44.0); LYMPHOCYTE # 0.7 TH/MM3 (1.0-4.8); MEAN CORPUSCULAR HEMOGLOBIN 30.3 PG (27.0-34.0); MEAN CORPUSCULAR HGB CONC 33.6 % (32.0-36.0); MEAN PLATELET VOLUME 10.3 FL (7.0-11.0); MONO % 14.7 % (0.0-8.0); MONOCYTE # 1.1 TH/MM3 (0-0.9); NEUT % 74.1 % (16.0-70.0); PLATELET COUNT 69 TH/MM3 (150-450); WHITE BLOOD COUNT 7.6 TH/MM3 (4.0-11.0)
[2017-02-27] MEDS: SODIUM CHLOR 0.9% 1000 ML INJ 1,000 ML IV SCH ×2 (13:00)
--- NOTE | 2017-02-27 13:02 | RADRPT ---
EXAM DATE/TIME: 02/27/2017 12:47 [facility] COMPARISON: CT BRAIN W/O CONTRAST, February 25, 2017, 11:31. INDICATIONS : Stroke alert, Altered mental status, unresponsive RADIATION DOSE: 42.68 CTDIvol (mGy) This report was called by Dr. Silva to Dr. Tyson's and Dr. Tamayo's voicemail at 12: [address] Tyson was reached directly at 1 pm. MEDICAL HISTORY : Cardiovascular disease. Hypertension. SURGICAL HISTORY : Appendectomy. ENCOUNTER: Initial ACUITY: 1 day PAIN SCALE: 2/10 LOCATION: cranial TECHNIQUE: Multiple contiguous axial images were obtained of the head. Using automated exposure control and adj ustment of the mA and/or kV according to patient size, radiation dose was kept as low as reasonably a chievable to obtain optimal diagnostic quality images. DICOM format image data is available electro nically for review and comparison. FINDINGS: CEREBRUM: There is moderate generalized atrophy. Ventricles are normal in size given the degree of atrophy pres ent. Mild periventricular white matter low-attenuation is present. There is calcification of the intr acranial internal carotid arteries. Trace air is present within the cavernous sinus bilaterally and i n a left superior ophthalmic vein. No evidence of midline shift, mass lesion, hemorrhage or acute in farction. No extra-axial fluid collections are seen. POSTERIOR FOSSA: The cerebellum and brainstem demonstrate no acute finding. The 4th ventricle is midline. The cerebe llopontine angle is unremarkable. EXTRACRANIAL: Visualized sinuses are clear. SKULL: The calvaria is intact. No evidence of skull fracture. CONCLUSION: 1. No acute intracranial abnormality is identified. There are no findings to indicate ischemia and no acute blood products are present. 2. Chronic brain changes include generalized atrophy and periventricular white matter change characte ristic of chronic microvascular ischemia. 3. There is trace air within the cavernous sinus bilaterally and in the left superior ophthalmic vein likely related to IV access. Flakito Silva MD on February 27, 2017 at 12:52 Board Certified Radiologist. This report was verified electronically.
--- NOTE | 2017-02-27 13:10 | RADRPT ---
EXAM DATE/TIME: 02/27/2017 13:44 [facility] COMPARISON: CHEST SINGLE AP, February 21, 2017, 14:05. INDICATIONS : Short of breath. Stroke alert. MEDICAL HISTORY : Hypercholesterolemia. Hypertension. Diabetes mellitus type 2. SURGICAL HISTORY : Appendectomy. ENCOUNTER: Subsequent ACUITY: 1 week PAIN SCORE: 10/10 LOCATION: chest FINDINGS: A single view of the chest demonstrates a persistent right-sided pleural effusion without significant change. There appears to be some mild improved aeration of both lung bases. Otherwise the rest of th e lungs remain clear. There are bilateral central lines in place. There is no pneumothorax. The heart size remains enlarged but stable. The bony structures are stable. No other new or significant change s are seen compared to the prior study.. CONCLUSION: 1. No significant change in right-sided pleural effusion. 2. Mild improved aeration of the lung bases. 3. Stable cardiomegaly. Oliverio Espinal MD on February 27, 2017 at 13:07 Board Certified Radiologist. This report was verified electronically.
[2017-02-27 13:15] LABS: ALBUMIN 2.7 GM/DL (3.4-5.0); CALCIUM 8.2 MG/DL (8.5-10.1); CREATININE 2.38 MG/DL (0.60-1.30); MAGNESIUM 1.9 MG/DL (1.5-2.5); PHOSPHORUS 1.6 MG/DL (2.5-4.9); TROPONIN I 0.26 NG/ML (0.02-0.05)
[2017-02-27] MEDS: RESP: ALBUTEROL 2.5 MG/IPRATROPIUM 0.5 MG NEB (PRN) INH ×2 (13:18)
[2017-02-27] MEDS: NOREPINEPHRINE INJ 4 MG in SODIUM CHLOR 0.9% 250 ML INJ 246 ML IV PRN ×4 (13:20)
[2017-02-27] MEDS ORDERED: TERBUTALINE INJ 1 MG/ML AMP SQ PRN ×2 (13:30)
[2017-02-27] MEDS ORDERED: SODIUM CHLOR 0.9% 250 ML INJ 250 ML IV ONE ×2 (13:30)
[2017-02-27] MEDS ORDERED: POTASSIUM PHOSPHATE MONOBASIC 500 MG TAB PO ONE ×2 (13:30)
[2017-02-27 13:55] LABS: OVALOCYTES 1+ (NORMAL)
[2017-02-27] MEDS: metroNIDAZOLE 500 MG TAB PO SCH ×4 (14:00→21:13)
--- NOTE | 2017-02-27 15:07 | MB ---
cc: ARNOLDO NAVARRO MD DATE OF CONSULTATION: 02/27/2017. REASON FOR CONSULTATION: Stroke alert. HISTORY OF PRESENT ILLNESS: Mr. Crawford was in hemodialysis and he was noted to be with altered mental status ; thus, a stroke alert was called. He was seen not responding to questions, diaphoretic with tachypnea and bradycardia. I talked to the attending physician and I asked him to do a CT scan and it was the impression that there may be right facial droop along with the symptoms. A head CT scan was done and revealed no acute intracranial changes or bleeding. I discussed this with the radiologist and discussed with the attending physicians. The patient's platelets were low at 69. The patient was not a candidate for IV tPA. During the encounter, the patient is awake, lethargic, tachypneic hyperventilating, opens eyes to commands, squeezes hands to commands , move extremities; however, right upper and lower extremity are noted to be less moving (questionable chronic) with possible right facial droop / chronic. Pupils are 3 mm bilaterally equally reacting to light. No gaze preference. Plantars are bilaterally downgoing. REVIEW OF SYSTEMS: Unable to obtain but as per medical records a 12-point review of systems is negative except for what is stated in the history of present illness. PAST MEDICAL HISTORY: 1. Diabetes. 2. Hypertension. 3. Hyperlipidemia. 4. Developmental delay. 5. Chronic renal failure on hemodialysis. PAST SURGICAL HISTORY: 1. Cataract extraction. 2. Dental extractions. 3. Appendectomy. MEDICATIONS: 1. Levofloxacin. 2. Meloxicam. 3. Hydroxyzine. 4. Lantus. 5. Pravastatin. 6. Amlodipine. FAMILY HISTORY: Unable to obtain due to the patient's condition. SOCIAL HISTORY: No alcohol, tobacco as per chart review. PHYSICAL EXAMINATION: GENERAL: Awake, lethargic, sleepy; however arousable, opens eyes to commands, squeezes to commands. Tachypneic. HEAD, EYES, EARS, NOSE, THROAT: Atraumatic, normocephalic with very poor personal hygiene. Intact vision. Intact hearing. NECK: Trachea is midline. No signs of meningeal irritation. CARDIOVASCULAR: Tachycardia. RESPIRATORY: Clear to auscultation. Tachypnea. No wheezes. GASTROINTESTINAL: Soft abdomen. Not distended. MUSCULOSKELETAL: No deformities. No clubbing. NEUROLOGICAL EXAMINATION: Sleepy, arousable, follows simple commands for. Opens eyes to commands, squeezes hands to commands, tachypneic in mild distress. Unable to assess for speech content. Moves extremity on the left side more than the right side. Unable to assess because of the confusional state. Unable to assess motor, sensory and cerebellar function. Reflexes 1+ bilateral symmetrical. Plantars are bilaterally downgoing. LABORATORY DATA: White blood cells 7.6, hemoglobin 9.4, platelets 69,000. Sodium 143, BUN 34, creatinine 2.38, calcium 8.2, phosphorus 0.6, troponin 0.26, albumin 2.70. DIAGNOSTIC IMAGING: Head CT scan revealed no acute intracranial abnormality but with chronic white matter disease with atrophy. I reviewed the head CT scan and there is more atrophy on the left parietal with what looks like an encephalomalacia / chronic. ASSESSMENT AND PLAN: A 77-year-old -[place] status post stroke alert. The patient is not a candidate for tPA because of moderately severe thrombocytopenia and the clinical scenario is more suggestive of an encephalopathic pattern during hemodialysis. Head CT scan was unremarkable for an acute event but showed chronic white matter changes with encephalomalacia on the left parietal region. On review of records, there is mention of a developmental delay. PLAN: 1. Neuro checks q. 1 hourly. 2. Aspirin 81 milligrams. 3. EEG. 4. Continue supportive therapy. 5. DVT prophylaxis. 6. SCDs. 7. GI prophylaxis. 8. Cardiac echocardiogram. 9. Monitoring. Thank you for the opportunity to participate in the care of your patient. MD BHAVANI Maki/YAJAIRAC /2:15 PM /2:47 PM [facility]
--- NOTE | 2017-02-27 15:21 | RADRPT ---
EXAM DATE/TIME: 02/27/2017 14:35 [facility] COMPARISON: No previous studies available for comparison. INDICATIONS : Cerebrovascular accident. MEDICAL HISTORY : Hypertension. Hypercholesterolemia. Diabetes. Arthritis. SURGICAL HISTORY : Appendectomy. Bilateral cataract surgery. ENCOUNTER: Initial ACUITY: 1 day PAIN SCORE: 1/10 LOCATION: Bilateral neck PEAK SYSTOLIC VELOCITIES (cm/sec): ICA/CCA RATIO: Right: 0.8 Left: UNABLE TO OBTAIN ICA: Right: 58.0 Left: 0.0 CCA: Right: 70.8 Left: 100.3 ECA: Right: NOT VISUALIZED Left: 180.9 VERTEBRAL: Right: 31.0 antegrade Left: 90.6 antegrade Elevated flow velocities and ICA/CCA ratios have been found to correlate with increased degrees of vessel stenosis, calculated as percentage of diameter relative to a normal segment of distal ICA/CCA FINDINGS: RIGHT CAROTID: There is a moderate noncalcified plaque in the carotid bulb. The proximal aspect of the common caroti d artery and the external carotid artery are not visualized. LEFT CAROTID: There is intimal thickening throughout the common carotid artery with severe noncalcified plaque in t he carotid bulb and internal carotid artery. No definite blood flow is documented within the left int ernal carotid artery. VERTEBRAL ARTERIES: Antegrade flow is seen in both vertebral arteries. MISCELLANEOUS: None. CONCLUSION: 1. Severe noncalcified plaque in the left carotid bulb and left internal carotid artery with a possib le complete occlusion of the left internal carotid artery. No Doppler signal is identified in the ves cori which could indicate complete occlusion or severe high-grade stenosis. Consider carotid CTA for f urther evaluation. 2. There is mild to moderate noncalcified plaque in the right carotid bulb. Less than 50% stenosis is present within the right internal carotid artery. 3. Please note that the right external carotid artery is not visualized. Flakito Silva MD on February 27, 2017 at 15:15 Board Certified Radiologist. This report was verified electronically.
--- NOTE | 2017-02-27 15:53 | HHI.CCPN ---
Subjective Remarks/Hospital Course 77-year-old male with past medical history significant for type 2 diabetes on insulin, hypertension, dyslipidemia, questionable developmental delay who was brought to the emergency room after being found down in his apartment. Down time is unknown, was last seen normal on Thursday. GCS of 12-13 as per EMS, with very poor hygiene. EMS checked blood sugar and was 560. Patient was tachypneic in the ER. Clinically appeared very dehydrated, and was found to be in acute renal failure (baseline creat 1.8 to 2). BUN 93 creatinine 5.3. Patient was given 3 L normal saline boluses. Other abnormal labs included hemoglobin of 10.6, platelet 97, sodium 147 and a potassium of 5.5. Glucose was 592 AST was 261 and AST 351 and troponin was 1.88. Head CT was negative. Patient's beta hydroxybutyrate was elevated and anion gap was also elevated. Patient was given 10 units of IV insulin and was started on DKA protocol. Also given vancomycin and Zosyn for possible sepsis/UTI. I evaluated the patient in the ED. He is tachypneic intermittently. Oral mucosa is very dry and he has a garbled speech. Clinically very dehydrated. Additional fluid boluses ordered. His lactic acid came back at 4.4. Daughter is at the bedside she claims that patient was seen normally on Thursday. Patient will be admitted to ICU with broad-spectrum antibiotics, insulin infusion per DKA protocol, and aggressive fluid resuscitation. Nephrology and cardiology consults placed for acute renal failure and troponin elevation/non- ST elevation ME. EKG showed poor R-wave progression and inferolateral T inversions. Patient was given aspirin. If troponin is also elevated and will start on IV heparin SUBJ 02/20: Oriented to person. Dehydration clinically improving. Creatinine remains elevated at 4.89, BUN improved to 84. Anion gap has closed but hydroxybutyrate normalized. Urine output noted mL since admission and after Scott placed, that is approximately 16 hours. 02/27: Patient had been transferred to hospitalist service on 02/21 and was on the floor. He was initiated on hemodialysis. Today toward the end of dialysis patient was noted to be more lethargic which was an acute change in his neurologic status. Dr. Cedeño evaluated patient and there was a question of a right facial droop. A stroke alert was called and critical care consult was requested for mental status. Head CT was negative for any bleed. Patient was noted to have borderline blood pressures during hemodialysis. He was transferred to the ICU following CAT scan where I evaluated him immediately following his arrival. At that time he was very lethargic/encephalopathic, 2 pros however moved both lower extremities as well as upper extremities with painful stimuli. He was having episodes of tachypnea intermittently. He was nonverbal and not following commands. A stat EEG was ordered as well. Patient was hypotensive following arrival with systolic blood pressure in the 70s for which she was started on Levophed and was given 250 cc normal saline bolus. Neurology consult was requested as part of stroke alert. History was obtained by reviewing records, discussion with rapid response and stroke team as well as Dr. Tamayo. Objective Vital Signs Date Time Temp Pulse Resp B/P (MAP) Pulse Ox O2 Delivery O2 Flow Rate FiO2 02/27/17 13:20 71 76/44 02/27/17 13:19 100 Nasal Cannula 6.00 02/27/17 08:04 97.4 22 02/25/17 19:50 21 Intake and Output 02/27/17 02/27/17 02/28/17 08:00 16:00 00:00 Intake Total 250 ml Output Total 300 ml Balance -300 ml 250 ml Result Diagram: 02/27/17 1231 02/27/17 1231 Other Results Laboratory Tests Test 02/27/17 13:36 Blood Gas Puncture Site LT RADIAL Blood Gas Patient Temperature 98.6 Blood Gas HCO3 28 mmol/L (22-26) Blood Gas Base Excess 5.0 mmol/L (-2-2) Blood Gas Oxygen Saturation 97 % (90-100) Arterial Blood pH 7.49 (7.380-7.420) Arterial Blood Partial Pressure CO2 37 mmHg (38-42) Arterial Blood Partial Pressure O2 143 mmHg (61-120) Arterial Blood Oxygen Content 14.1 Vol % (12.0-20.0) Arterial Blood Carboxyhemoglobin 1.7 % (0-4) Arterial Blood Methemoglobin 0.6 % (0-2) Blood Gas Hemoglobin 10.1 G/DL (12.0-16.0) Oxygen Delivery Device NASAL CANNULA Blood Gas Liter Flow 6 L/M Imaging Chest x-ray no acute disease CT head cortical atrophy no acute findings Objective Remarks GENERAL: 77-year-old disheveled male who is laying in bed SKIN: Skin is warm/dry. HEAD: Atraumatic. Normocephalic. EYES: Pupils equal and round. No scleral icterus. No injection or drainage. ENT: No nasal bleeding or discharge. Oral mucosa is very dry NECK: Trachea midline. No JVD. CARDIOVASCULAR: S1-S2 regular no gallop or murmur RESPIRATORY: No accessory muscle use, Clear to auscultation. Breath sounds equal bilaterally. GASTROINTESTINAL: Abdomen soft, non-tender, nondistended. Hepatic and splenic margins not palpable. MUSCULOSKELETAL: No obvious deformities. No clubbing. No cyanosis. No edema. NEUROLOGICAL: Encephalopathic/stuporose, nonverbal. Responds to painful stimuli , moves all 4 extremities. Pupils 3 mm bilaterally reactive. Procedures Vascath A/P Assessment and Plan NEURO: Encephalopathy - Minimize sedation. Treat agitation with when necessary Haldol -Most likely metabolic. Head CT negative for bleed. EEG report pending. Patient has been evaluated by neurology. Started on aspirin. RESP: Respiratory insufficiency - DuoNeb every 6 hours when necessary, CV: NSTEMI Hypotension History of Hypertension -KVO IV fluids -Dr. Quintanilla from cardiology has evaluated patient previously. - Aspirin 81 mg daily. -Hold antihypertensives/beta ayesha in view of hypotension. Levophed for pressor support. 250 cc normal saline bolus - Avoid statins due to transaminitis GI: Transaminitis Chronic cholecystitis by HIDA scan - -Continue antibiotics per ID. Not a surgical candidate currently. : Acute on chronic kidney disease Severe dehydration Hyperkalemia -Strict intake output, monitor and replete electro lites, follow BUN/creatinine - Nephrology consulted Dr. Quintanilla seeing. Patient on hemodialysis for clearance - Hyperkalemia resolved ID: Probable sepsis UTI Chronic cholecystitis -Being followed by ID. Currently on IV Levaquin and Flagyl - F/U on blood and urine culture negative to date HEME: Anemia Mild thrombocytopenia -Monitor CBC, CMP -B12 normal, iron studies indicate anemia of chronic disease ENDO: Diabetes mellitus DKA-resolved - Continue sliding scale insulin, Levemir PROPH: - Bilateral lower extremity SCDs. Heparin 5000 units sq q12. Monitor platelet count closely - IV Protonix 40 q24 hours LINES: - Left subclavian central line placed by Dr. Tobias in ED 02/19/17, right IJ Vas-Cath Level 3 Anshul Alarcon MD Feb 27, 2017 15:53
[2017-02-27] MEDS ORDERED: ASPIRIN 300 MG SUPP RECTAL ONE ×2 (16:00)
[2017-02-27 16:29] LABS: INTERNATIONAL NORMALIZED RATIO 1.5 RATIO; PROTHROMBIN TIME - PATIENT 17.3 SEC (9.8-11.6)
[2017-02-27] MEDS: INSULIN DETEMIR 100 UNITS/ML VIAL SQ SCH ×2 (20:16)
--- NOTE | 2017-02-27 22:27 | MG ---
cc: ARNOLDO NAVARRO MD Lab No: Date: 02/27/17 Age: Sex: M Race: DATE OF [address] Alarcon MEDICAL HISTORY Confused, dyspnea, hypercholesterolemia, seizure, developmental delay, sudden onset of altered mental status while on dialysis. MEDICATIONS aspart. No. Albuterol DESCRIPTION There is generalized background slowing of the background activity at 4-5 Hz theta superimposed by excess beta activity. The EEG recording is contaminated with excessive movement and muscle artifact. There is generalized slowing with low amplitude theta and the polymorphic theta and delta. Hyperventilation was not done. Photic stimulation did not elicit a driving response. There were no electrographic seizures or epileptiform discharges noted during the recording. INTERPRETATION This is a awake and drowsy EEG. There is generalized background slowing that may indicate moderate to severe encephalopathy that may be secondary to metabolic medication or hypoxia. Absence of electrographic seizures or epileptiform discharges does not exclude a diagnosis of epilepsy. Clinical correlation is recommended. MD BHAVANI Maki/ /10:09 PM /10:19 PM
[2017-02-28] VITALS (13 sets, daily range): BP systolic 73–144; BP diastolic 44–78; PULSE 72–92; RESP 12–19; TEMP 97.5–98; O2SAT 98–100
[2017-02-28] MEDS: NOREPINEPHRINE INJ 4 MG in SODIUM CHLOR 0.9% 250 ML INJ 246 ML IV PRN ×4 (00:18)
[2017-02-28] MEDS: SODIUM CHLOR 0.9% 1000 ML INJ 1,000 ML IV SCH ×2 (03:00)
[2017-02-28] MEDS: CHLORHEXIDINE GLUCONATE 2 % 1 PACK (2 CLOTHS) TOP SCH ×2 (03:07)
[2017-02-28 05:52] LABS: AUTOMATED NEUTROPHIL # 4.6 TH/MM3 (1.8-7.7); BASOPHIL % 0.2 % (0.0-2.0); EOSINOPHIL # 0.1 TH/MM3 (0-0.4); EOSINOPHIL % 1.9 % (0.0-4.0); HEMATOCRIT 26.1 % (39.0-51.0); HEMOGLOBIN 8.7 GM/DL (13.0-17.0); LYMPH % 10.1 % (9.0-44.0); LYMPHOCYTE # 0.6 TH/MM3 (1.0-4.8); MEAN CELL VOLUME 91.1 FL (80.0-100.0); MEAN CORPUSCULAR HEMOGLOBIN 30.5 PG (27.0-34.0); MEAN CORPUSCULAR HGB CONC 33.5 % (32.0-36.0); MEAN PLATELET VOLUME 10.5 FL (7.0-11.0); MONO % 13.1 % (0.0-8.0); MONOCYTE # 0.8 TH/MM3 (0-0.9); NEUT % 74.7 % (16.0-70.0); PLATELET COUNT 94 TH/MM3 (150-450); RED BLOOD COUNT 2.87 MIL/MM3 (4.50-5.90); RED CELL DISTRIBUTION WIDTH 16.8 % (11.6-17.2); WHITE BLOOD COUNT 6.2 TH/MM3 (4.0-11.0)
[2017-02-28] MEDS: METOPROLOL TARTRATE 25 MG TAB PO SCH ×6 (06:00→21:45)
[2017-02-28 06:07] LABS: INTERNATIONAL NORMALIZED RATIO 1.6 RATIO; PROTHROMBIN TIME - PATIENT 17.5 SEC (9.8-11.6)
[2017-02-28 06:58] LABS: BICARBONATE 26.1 MEQ/L (21.0-32.0); CALCIUM 7.8 MG/DL (8.5-10.1); CREATININE 3.52 MG/DL (0.60-1.30); MAGNESIUM 1.9 MG/DL (1.5-2.5); PHOSPHORUS 3.6 MG/DL (2.5-4.9)
[2017-02-28] MEDS: metroNIDAZOLE 500 MG TAB PO SCH ×6 (07:30→21:54)
[2017-02-28] MEDS: INSULIN ASPART SUPPLEMENTAL SCALE SQ SCH ×8 (08:00→19:45)
[2017-02-28] MEDS: INSULIN DETEMIR 100 UNITS/ML VIAL SQ SCH ×4 (08:00→19:47)
[2017-02-28] MEDS: SODIUM CHLORIDE 0.9% FLUSH 10 ML FLUSH IV FLUSH SCH ×4 (09:00→21:00)
[2017-02-28] MEDS: DOCUSATE SODIUM 50 MG/SENNA 8.6 MG TAB PO SCH ×4 (09:00→19:45)
[2017-02-28] MEDS: LACTOBACILLUS ACIDOPHILUS TAB PO SCH ×6 (09:26→17:45)
[2017-02-28] MEDS: LEVOFLOXACIN 250 MG TAB PO SCH ×2 (09:27)
[2017-02-28] MEDS: ASPIRIN EC 81 MG TABEC PO SCH ×2 (09:28)
[2017-02-28] MEDS: PANTOPRAZOLE SODIUM 40 MG VIAL IV PUSH SCH ×2 (09:28)
--- NOTE | 2017-02-28 09:52 | HHI.CCPN ---
Subjective Remarks/Hospital Course 77-year-old male with past medical history significant for type 2 diabetes on insulin, hypertension, dyslipidemia, questionable developmental delay who was brought to the emergency room after being found down in his apartment. Down time is unknown, was last seen normal on Thursday. GCS of 12-13 as per EMS, with very poor hygiene. EMS checked blood sugar and was 560. Patient was tachypneic in the ER. Clinically appeared very dehydrated, and was found to be in acute renal failure (baseline creat 1.8 to 2). BUN 93 creatinine 5.3. Patient was given 3 L normal saline boluses. Other abnormal labs included hemoglobin of 10.6, platelet 97, sodium 147 and a potassium of 5.5. Glucose was 592 AST was 261 and AST 351 and troponin was 1.88. Head CT was negative. Patient's beta hydroxybutyrate was elevated and anion gap was also elevated. Patient was given 10 units of IV insulin and was started on DKA protocol. Also given vancomycin and Zosyn for possible sepsis/UTI. I evaluated the patient in the ED. He is tachypneic intermittently. Oral mucosa is very dry and he has a garbled speech. Clinically very dehydrated. Additional fluid boluses ordered. His lactic acid came back at 4.4. Daughter is at the bedside she claims that patient was seen normally on Thursday. Patient will be admitted to ICU with broad-spectrum antibiotics, insulin infusion per DKA protocol, and aggressive fluid resuscitation. Nephrology and cardiology consults placed for acute renal failure and troponin elevation/non- ST elevation OH. EKG showed poor R-wave progression and inferolateral T inversions. Patient was given aspirin. If troponin is also elevated and will start on IV heparin SUBJ 02/20: Oriented to person. Dehydration clinically improving. Creatinine remains elevated at 4.89, BUN improved to 84. Anion gap has closed but hydroxybutyrate normalized. Urine output noted mL since admission and after Scott placed, that is approximately 16 hours. 02/27: Patient had been transferred to hospitalist service on 02/21 and was on the floor. He was initiated on hemodialysis. Today toward the end of dialysis patient was noted to be more lethargic which was an acute change in his neurologic status. Dr. Cedeño evaluated patient and there was a question of a right facial droop. A stroke alert was called and critical care consult was requested for mental status. Head CT was negative for any bleed. Patient was noted to have borderline blood pressures during hemodialysis. He was transferred to the ICU following CAT scan where I evaluated him immediately following his arrival. At that time he was very lethargic/encephalopathic, 2 pros however moved both lower extremities as well as upper extremities with painful stimuli. He was having episodes of tachypnea intermittently. He was nonverbal and not following commands. A stat EEG was ordered as well. Patient was hypotensive following arrival with systolic blood pressure in the 70s for which she was started on Levophed and was given 250 cc normal saline bolus. Neurology consult was requested as part of stroke alert. History was obtained by reviewing records, discussion with rapid response and stroke team as well as Dr. Tamayo. 02/28: Patient is drowsy with easily arousable. He follows commands. Moves all 4 extremities. Was hypotensive yesterday requiring Levophed however currently is off pressors. Objective Vital Signs Date Time Temp Pulse Resp B/P (MAP) Pulse Ox O2 Delivery O2 Flow Rate FiO2 02/28/17 08:00 97.5 82 12 107/56 (73) 100 02/28/17 08:00 Room Air 02/28/17 07:58 21 02/27/17 19:00 2.00 Intake and Output 02/28/17 02/28/17 03/01/17 08:00 16:00 00:00 Intake Total 159 ml Output Total 100 ml Balance 59 ml Result Diagram: 02/28/17 0530 02/28/17 0530 Other Results Laboratory Tests Test 02/27/17 13:36 Blood Gas Puncture Site LT RADIAL Blood Gas Patient Temperature 98.6 Blood Gas HCO3 28 mmol/L (22-26) Blood Gas Base Excess 5.0 mmol/L (-2-2) Blood Gas Oxygen Saturation 97 % (90-100) Arterial Blood pH 7.49 (7.380-7.420) Arterial Blood Partial Pressure CO2 37 mmHg (38-42) Arterial Blood Partial Pressure O2 143 mmHg (61-120) Arterial Blood Oxygen Content 14.1 Vol % (12.0-20.0) Arterial Blood Carboxyhemoglobin 1.7 % (0-4) Arterial Blood Methemoglobin 0.6 % (0-2) Blood Gas Hemoglobin 10.1 G/DL (12.0-16.0) Oxygen Delivery Device NASAL CANNULA Blood Gas Liter Flow 6 L/M Imaging Chest x-ray no acute disease CT head cortical atrophy no acute findings Objective Remarks GENERAL: 77-year-old disheveled male who is laying in bed SKIN: Skin is warm/dry. HEAD: Atraumatic. Normocephalic. EYES: Pupils equal and round. No scleral icterus. No injection or drainage. ENT: No nasal bleeding or discharge. Oral mucosa is very dry NECK: Trachea midline. No JVD. CARDIOVASCULAR: S1-S2 regular no gallop or murmur RESPIRATORY: No accessory muscle use, Clear to auscultation. Breath sounds equal bilaterally. GASTROINTESTINAL: Abdomen soft, non-tender, nondistended. Hepatic and splenic margins not palpable. MUSCULOSKELETAL: No obvious deformities. No clubbing. No cyanosis. No edema. NEUROLOGICAL: Encephalopathic/drowsy, easily arousable, nonverbal. Following commands, moves all 4 extremities. Pupils 3 mm bilaterally reactive. Procedures Vascath A/P Assessment and Plan NEURO: Encephalopathy - Minimize sedation. Treat agitation with when necessary Haldol -Most likely metabolic. Head CT negative for bleed. EEG with no evidence of seizure activity. Patient has been evaluated by neurology. Started on aspirin. RESP: Respiratory insufficiency - DuoNeb every 6 hours when necessary, CV: NSTEMI Hypotension History of Hypertension -KVO IV fluids -Dr. Quintanilla from cardiology has evaluated patient previously. - Aspirin 81 mg daily. -Hold antihypertensives/beta ayesha in view of hypotension. Off Levophed currently. - Avoid statins due to transaminitis GI: Transaminitis Chronic cholecystitis by HIDA scan - -Continue antibiotics per ID. Not a surgical candidate currently. : Acute on chronic kidney disease Severe dehydration Hyperkalemia -Strict intake output, monitor and replete electrolites, follow BUN/creatinine - Nephrology consulted Dr. Quintanilla seeing. Patient on hemodialysis for clearance - Hyperkalemia resolved ID: Probable sepsis UTI Chronic cholecystitis -Being followed by ID. Currently on IV Levaquin and Flagyl. - F/U on blood and urine culture negative to date HEME: Anemia Mild thrombocytopenia -Monitor CBC, CMP -B12 normal, iron studies indicate anemia of chronic disease ENDO: Diabetes mellitus DKA-resolved - Continue sliding scale insulin, Levemir PROPH: - Bilateral lower extremity SCDs. Heparin 5000 units sq q12. Monitor platelet count closely - IV Protonix 40 q24 hours LINES: - Left subclavian central line placed by Dr. Tobias in ED 02/19/17, right IJ Vas-Cath Consult and transfer to hospitalist service for further medical management. Critical care will be signing off at this time. Please reconsult if needed. Level 3 Anshul Alarcon MD Feb 28, 2017 09:52
--- NOTE | 2017-02-28 11:53 | HHI.NPPN ---
Subjective General Problems: Mebatolic Acidosis Renal Failure: Chronic, Acute Additional Remarks Patient is sleepy, respond to verbal commands, not following any commands. Review of Systems General General Remarks unable to evaluate Objective Data Data 02/28/17 03/01/17 19:00 07:00 Intake Total 82 ml Balance 82 ml IV Total 82 ml Vital Signs Date Time Temp Pulse Resp B/P (MAP) Pulse Ox O2 Delivery O2 Flow Rate FiO2 02/28/17 08:00 97.5 82 12 107/56 (73) 100 02/28/17 08:00 100 Room Air 02/28/17 08:00 82 02/28/17 07:58 100 21 02/28/17 06:00 88 02/28/17 04:00 97.9 76 14 132/74 (93) 100 02/28/17 04:00 78 02/28/17 03:13 66 78/45 02/28/17 02:00 72 02/28/17 01:31 144/78 (100) 02/28/17 01:19 76 144/78 02/28/17 01:10 79 121/60 02/28/17 00:18 64 73/44 02/28/17 00:00 97.9 78 19 73/44 (54) 100 02/28/17 00:00 78 02/27/17 22:00 72 02/27/17 20:45 100 21 02/27/17 20:00 98.3 76 20 107/55 (72) 100 02/27/17 20:00 74 02/27/17 19:00 100 Nasal Cannula 2.00 02/27/17 18:00 74 02/27/17 17:50 100 02/27/17 16:13 100 Nasal Cannula 3.00 02/27/17 16:00 73 02/27/17 16:00 98.0 73 19 122/82 (95) 100 02/27/17 16:00 100 Nasal Cannula 3.00 02/27/17 14:00 72 02/27/17 13:20 71 76/44 02/27/17 13:19 100 Nasal Cannula 6.00 02/27/17 13:15 100 Nasal Cannula 5.00 -: 02/28/17 0530 02/28/17 0530 Tubes & Lines: Vas-Cath Tubes & Lines Comment NG tube Drip Comment None Physical Exam General Appearance: No Acute Distress, Comfortable, Malnourished Eyes Eye Exam: Pupils Equal Throat Throat Exam: Oral Mucosa [place] & Moist Neck Neck Exam: Neck Supple Pulmonary Resp Exam: Breath Sounds Equal, No Distress, Rhonchi, Decreased Bases Cardiology CV Exam: Regular, Normal Sinus Rhythm, Good Perfusion Gastrointestinal/Abdomen GI Exam: Soft, Non-Tender, Bowel Sounds Present Genitourinary Exam: Bladder Non-Palpable Musculoskeletal MS Exam: Joints Intact, Normal Tone, Unable to Ambulate Integumentary Skin Exam: Clear, Warm, Dry, Intact Extremeties Extremities Exam: Trace Edema Neurologic Neuro Exam: Obtunded Assessment/Plan Assessment Summary: HERVE/Acute Renal Failure, Acute Tubular Necrosis, Diabetes Mellitus Electrolyte Assessment: Metabolic Acidosis Problem List: (1) Acute renal failure ICD Codes: N17.9 - Acute kidney failure, unspecified Status: Acute Plan: This patient has underlying renal impairment, creatinine 1.8-2 at baseline He has 1.2 g proteinuria, which 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 HERVE due to ATN secondary to dehydration, sepsis, and DKA Vascath placed and HD started 02/21, on HD Due today for dialysis He is oliguric, monitor output and await recovery phase valenzuela has been removed, has condom catheter Repeat labs have been ordered Off IVF Passed swallow , off tube feeding Avoid nephrotoxic agents HD on Thursday if needed Palliative care is following to address goals of care. Creatinine increase to 3.5. (2) DKA (diabetic ketoacidoses) ICD Codes: E13.10 - Other specified diabetes mellitus with ketoacidosis without coma Status: Resolved Plan: DKA resolved, difficulty controlling glucose, variable glucose, better today continue to adjust insulin with primary team. (3) Sepsis ICD Codes: A41.9 - Sepsis, unspecified organism Status: Acute Plan: Elevated lactic acid He is on Flagyl and Levaquin 1/2 blood cultures with staph hominis, likely contaminant HIDA scan taken, unable to visualize GB, acute vs chronic merissa, repeat HIDA ordered (4) Elevated troponin ICD Codes: R74.8 - Abnormal levels of other serum enzymes Plan: cardiology has evaluated suspect demand ischemia as etiology of elevated troponin levels 2D echo shows EF 25% (5) Dehydration with hypernatremia ICD Codes: E87.0 - Hyperosmolality and hypernatremia Status: Resolved Plan: Corrected, monitor for recurrence Problem Qualifiers (1) Acute renal failure: Qualified Codes: N17.9 - Acute kidney failure, unspecified (2) DKA (diabetic ketoacidoses): (3) Sepsis: Qualified Codes: A41.9 - Sepsis, unspecified organism Jocelin Villar MD Feb 28, 2017 11:53
--- NOTE | 2017-02-28 12:01 | HHI.PR ---
Review/Management Diagnosis - Stroke alert Not a candidate for tPA because of moderately severe thrombocytopenia and the clinical scenario is more suggestive of an encephalopathic pattern during hemodialysis. - CKD - Encephalopathy, likely metabolic in etiology - History of remote ischemic stroke Plan 1. Neuro checks q. 1 hourly. 2. Aspirin 81 milligrams. 3.Continue supportive medical therapy. 4. DVT prophylaxis. 5. SCDs. 6. GI prophylaxis. Diagnosis/Plan: Subjective Subjective Comments No acute events reported EEG revealed an encephalopathic pattern, no evidence of an ictal activity CUS revealed left ICA occlusion? and right ICA 50% stenosis Improved neurologic status Discussed with RN, states returned to his baseline Active Medications Current Medications Medications (Trade) Dose Ordered Sig/Fede Route Start Time Stop Time Status Last Admin (Sodium Bicarbonate 8.4% Inj) 100 meq UNSCH PRN IV PUSH 02/19/17 13:45 (Sodium Bicarbonate 8.4% Inj) 50 meq UNSCH PRN IV PUSH 02/19/17 13:45 Sodium Phosphate 15 mmol/Sodium Chloride 105 ml @ 25 mls/hr UNSCH PRN IV 02/19/17 13:45 (NS Flush) 2 ml UNSCH PRN IV FLUSH 02/19/17 14:15 (NS Flush) 2 ml BID IV FLUSH 02/19/17 21:00 02/28/17 09:00 (Protonix Inj) 40 mg DAILY IV PUSH 02/20/17 09:00 02/28/17 09:28 (Heparin Inj) 5,000 units Q12H SQ 02/19/17 17:00 Future Hold 02/21/17 16:36 Miscellaneous Information 1 Q361D XX 02/19/17 14:15 (Chlorhexidine 2% Cloth) Taper DAILY@04 TOP 02/20/17 04:00 02/16/18 03:59 02/25/17 02:34 (Chlorhexidine 2% Cloth) 3 pack UNSCH PRN TOP 02/19/17 14:15 (Princess-Colace) 1 tab BID PO 02/19/17 21:00 02/26/17 08:52 (Milk Of Magnesia Liq) 30 ml Q12H PRN PO 02/19/17 14:15 (Senokot) 17.2 mg Q12H PRN PO 02/19/17 14:15 (Dulcolax Supp) 10 mg DAILY PRN RECTAL 02/19/17 14:15 (Lactulose Liq) 30 ml DAILY PRN PO 02/19/17 14:15 (Aspirin Chew) 81 mg DAILY CHEW 02/19/17 15:15 Future Hold 02/21/17 07:46 (Lopressor) 25 mg Q8HR PO 02/19/17 16:30 02/27/17 05:40 (Melatonin) 5 mg HS PRN PO 02/19/17 22:15 02/20/17 21:45 (NovoLOG INJ) 3 units TIDAC SQ 02/20/17 12:00 Future Hold 02/22/17 08:00 (Haldol Inj) 2 mg Q4H PRN IV 02/20/17 09:45 (Ativan Inj) 1 mg Q6H PRN IV PUSH 02/21/17 08:00 Sodium Chloride 1,000 ml @ 0 mls/hr Q0M PRN OTHER 02/21/17 10:55 (Heparin Inj) 8,000 units UNSCH PRN IV FLUSH 02/21/17 11:00 Sodium Chloride 1,000 ml @ 200 mls/hr Q5H PRN IV 02/21/17 10:55 02/21/17 14:48 Sodium Chloride 1,000 ml @ 0 mls/hr Q0M PRN OTHER 02/21/17 10:55 (Mannitol Inj) 12.5 gm UNSCH PRN IV 02/21/17 11:00 02/21/17 14:48 Albumin Human 100 ml @ 60 mls/hr UNSCH PRN IV 02/21/17 11:00 02/25/17 13:37 (NS Flush) 5 ml UNSCH PRN IV FLUSH 02/21/17 11:00 (Heparin Inj) UNSCH PRN .XX 02/21/17 11:00 02/25/17 13:37 (Gentamicin (Dialysis) Inj) 20 mg UNSCH PRN OTHER 02/21/17 11:00 02/25/17 13:38 (Zofran Inj) 4 mg UNSCH PRN IV PUSH 02/21/17 11:00 (Tylenol) 650 mg UNSCH PRN PO 02/21/17 11:00 (Benadryl) 25 mg UNSCH PRN PO 02/21/17 11:00 (Nitrostat Sl) 0.4 mg UNSCH PRN SL 02/21/17 11:00 (Catapres) 0.1 mg UNSCH PRN PO 02/21/17 11:00 (Gelfoam 12 Mm/7 Mm Top) 1 foam UNSCH PRN TOP 02/21/17 11:00 (Duoneb Neb) 1 ampule Q2HR NEB PRN INH 02/22/17 14:00 02/27/17 13:18 (D50w (Vial) Inj) 50 ml UNSCH PRN IV PUSH 02/24/17 08:30 (Glucagon Inj) 1 mg UNSCH PRN OTHER 02/24/17 08:30 (Lactinex) 1 tab TID PO 02/25/17 13:00 02/28/17 09:26 (NovoLOG SUPPLEMENTAL SCALE) 1 ACHS SLIDING SCALE SQ 02/27/17 12:00 02/28/17 11:50 (Levemir Inj) 8 units DAILYAC SQ 02/28/17 08:00 02/28/17 08:00 (Levemir Inj) 8 units HS SQ 02/27/17 21:00 (Levaquin) 250 mg DAILY PO 02/27/17 11:00 02/28/17 09:27 (Flagyl) 500 mg Q8HR PO 02/27/17 14:00 02/28/17 07:30 Sodium Chloride 1,000 ml @ 60 mls/hr [id number] IV 02/27/17 13:00 02/28/17 03:00 Norepinephrine Bitartrate 4 mg/ Sodium Chloride 250 ml @ 7.5 mls/hr TITRATE PRN IV 02/27/17 13:30 02/28/17 00:18 (Brethine Inj) 1 mg UNSCH PRN SQ 02/27/17 13:30 (Ecotrin Ec) 81 mg DAILY PO 02/28/17 09:00 02/28/17 09:28 Allergies Allergies Coded Allergies No Known Allergies ([id number]/12/17) Review of Systems All other ROS: ROS reviewed as documented in chart Exam I&O / VS 02/28/17 02/28/17 03/01/17 15:00 23:00 07:00 Intake Total 82 ml Balance 82 ml IV Total 82 ml Vital Signs Date Time Temp Pulse Resp B/P (MAP) Pulse Ox O2 Delivery O2 Flow Rate FiO2 02/28/17 08:00 97.5 82 12 107/56 (73) 100 02/28/17 08:00 100 Room Air 02/28/17 08:00 82 02/28/17 07:58 100 21 02/28/17 06:00 88 02/28/17 04:00 97.9 76 14 132/74 (93) 100 02/28/17 04:00 78 02/28/17 03:13 66 78/45 02/28/17 02:00 72 02/28/17 01:31 144/78 (100) 02/28/17 01:19 76 144/78 02/28/17 01:10 79 121/60 02/28/17 00:18 64 73/44 02/28/17 00:00 97.9 78 19 73/44 (54) 100 02/28/17 00:00 78 02/27/17 22:00 72 02/27/17 20:45 100 21 02/27/17 20:00 98.3 76 20 107/55 (72) 100 02/27/17 20:00 74 02/27/17 19:00 100 Nasal Cannula 2.00 02/27/17 18:00 74 02/27/17 17:50 100 02/27/17 16:13 100 Nasal Cannula 3.00 02/27/17 16:00 73 02/27/17 16:00 98.0 73 19 122/82 (95) 100 02/27/17 16:00 100 Nasal Cannula 3.00 02/27/17 14:00 72 02/27/17 13:20 71 76/44 02/27/17 13:19 100 Nasal Cannula 6.00 02/27/17 13:15 100 Nasal Cannula 5.00 Exam Comments GENERAL: Awake, alert, HEAD, EYES, EARS, NOSE, THROAT: Atraumatic, normocephalic, poor personal hygiene. Intact vision. Intact hearing. NECK: Trachea is midline. No signs of meningeal irritation. CARDIOVASCULAR: Tachycardia. RESPIRATORY: Clear to auscultation. Tachypnea. No wheezes. GASTROINTESTINAL: Soft abdomen. Not distended. MUSCULOSKELETAL: No deformities. No clubbing. NEUROLOGICAL EXAMINATION: awake, alert, squeezes hands to commands, mild dysarthria/chronic, Moves extremity on the left side more than the right side. Reflexes 1+ bilateral symmetrical. Plantars are bilaterally downgoing. Objective Radiology Results Last [address] 02/27/17 0000 Signed Impressions: Service Date/Time: Monday, February 27, 2017 12:47 - CONCLUSION: 1. No acute intracranial abnormality is identified. There are no findings to indicate ischemia and no acute blood products are present. 2. Chronic brain changes include generalized atrophy and periventricular white matter change characteristic of chronic microvascular ischemia. 3. There is trace air within the cavernous sinus bilaterally and in the left superior ophthalmic vein likely related to IV access. Flakito Silva MD Chest X-Ray 02/27/17 0000 Signed Impressions: Service Date/Time: Monday, February 27, 2017 13:44 - CONCLUSION: 1. No significant change in right-sided pleural effusion. 2. Mild improved aeration of the lung bases. 3. Stable cardiomegaly. Oliverio Espinal MD Carotid Artery Ultrasound 02/27/17 0000 Signed Impressions: Service Date/Time: Monday, February 27, 2017 14:35 - CONCLUSION: 1. Severe noncalcified plaque in the left carotid bulb and left internal carotid artery with a possible complete occlusion of the left internal carotid artery. No Doppler signal is identified in the vessel which could indicate complete occlusion or severe high-grade stenosis. Consider carotid CTA for further evaluation. 2. There is mild to moderate noncalcified plaque in the right carotid bulb. Less than 50%% stenosis is present within the right internal carotid artery. 3. Please note that the right external carotid artery is not visualized. Flakito Silva MD Micro and Labs Laboratory Tests Test 02/27/17 12:31 02/27/17 13:36 02/27/17 15:32 02/28/17 05:30 White Blood Count 7.6 6.2 Red Blood Count 3.10 2.87 Hemoglobin 9.4 8.7 Bedside Hemoglobin 10.5 Hematocrit 27.9 26.1 Bedside Hematocrit 31.0 Mean Corpuscular Volume 90.0 91.1 Mean Corpuscular Hemoglobin 30.3 30.5 Mean Corpuscular Hemoglobin Concent 33.6 33.5 Red Cell Distribution Width 16.0 16.8 Platelet Count 69 94 Mean Platelet Volume 10.3 10.5 Neutrophils (%) (Auto) 74.1 74.7 Lymphocytes (%) (Auto) 8.8 10.1 Monocytes (%) (Auto) 14.7 13.1 Eosinophils (%) (Auto) 2.3 1.9 Basophils (%) (Auto) 0.1 0.2 Neutrophils # (Auto) 5.6 4.6 Lymphocytes # (Auto) 0.7 0.6 Monocytes # (Auto) 1.1 0.8 Eosinophils # (Auto) 0.2 0.1 Basophils # (Auto) 0.0 0.0 CBC Comment AUTO DIFF AUTO DIFF Differential Comment AUTO DIFF CONFIRMED AUTO DIFF CONFIRMED Platelet Estimate LOW LOW Platelet Morphology Comment NORMAL NORMAL Ovalocytes 1+ Bedside Sodium 143 Blood Urea Nitrogen 36 53 Creatinine 2.38 3.52 Random Glucose 106 134 Albumin 2.7 Calcium Level 8.2 7.8 Phosphorus Level 1.6 3.6 Magnesium Level 1.9 1.9 Sodium Level 141 141 Potassium Level 3.6 3.7 Chloride Level 103 104 Carbon Dioxide Level 30.0 26.1 Bedside Potassium 3.6 Bedside Chloride 99 Anion Gap 8 11 Bedside Blood Urea Nitrogen 34 Bedside Creatinine 2.3 Estimat Glomerular Filtration Rate 32 20 Bedside Glucose 107 Hemoglobin A1c 10.0 Total Creatine Kinase 43 Troponin I 0.26 Blood Gas Puncture Site LT RADIAL Blood Gas Patient Temperature 98.6 Blood Gas HCO3 28 Blood Gas Base Excess 5.0 Blood Gas Oxygen Saturation 97 Arterial Blood pH 7.49 Arterial Blood Partial Pressure CO2 37 Arterial Blood Partial Pressure O2 143 Arterial Blood Oxygen Content 14.1 Arterial Blood Carboxyhemoglobin 1.7 Arterial Blood Methemoglobin 0.6 Blood Gas Hemoglobin 10.1 Oxygen Delivery Device NASAL CANNULA Blood Gas Liter Flow 6 Prothrombin Time 17.3 17.5 Prothromb Time International Ratio 1.5 1.6 Activated Partial Thromboplast Time 32.4 33.8 Fibrinogen 261 289 Red Cell Morphology Comment NORMAL Date/Time Source Procedure Growth Status 02/19/17 12:10 Blood Peripheral Aerobic Blood Culture - Final Staphylococcus Hominis-Hominis Complete 02/19/17 12:10 Blood Peripheral Anaerobic Blood Culture - Final NO GROWTH IN 5 DAYS Complete 02/19/17 12:10 Urine Catheterized Urine Urine Culture - Final NO GROWTH IN 48 HOURS. Complete Lary Tyson MD Feb 28, 2017 12:01
--- NOTE | 2017-02-28 14:56 | PD.ONC.PN ---
Subjective Subjective Remarks Afebrile overnight Pt resting in bed asleep Awakens to verbal stimuli Pt somnolent Objective Data Date Time Temp Pulse Resp B/P (MAP) Pulse Ox O2 Delivery O2 Flow Rate FiO2 02/28/17 12:00 97.7 83 16 111/62 (78) 100 02/28/17 12:00 83 02/28/17 08:00 97.5 82 12 107/56 (73) 100 02/28/17 08:00 100 Room Air 02/28/17 08:00 82 02/28/17 07:58 100 21 02/28/17 06:00 88 02/28/17 04:00 97.9 76 14 132/74 (93) 100 02/28/17 04:00 78 02/28/17 03:13 66 78/45 02/28/17 02:00 72 02/28/17 01:31 144/78 (100) 02/28/17 01:19 76 144/78 02/28/17 01:10 79 121/60 02/28/17 00:18 64 73/44 02/28/17 00:00 97.9 78 19 73/44 (54) 100 02/28/17 00:00 78 02/27/17 22:00 72 02/27/17 20:45 100 21 02/27/17 20:00 98.3 76 20 107/55 (72) 100 02/27/17 20:00 74 02/27/17 19:00 100 Nasal Cannula 2.00 02/27/17 18:00 74 02/27/17 17:50 100 02/27/17 16:13 100 Nasal Cannula 3.00 02/27/17 16:00 73 02/27/17 16:00 98.0 73 19 122/82 (95) 100 02/27/17 16:00 100 Nasal Cannula 3.00 02/28/17 02/28/17 02/28/17 07:00 15:00 23:00 Intake Total 159 ml 82 ml Output Total 100 ml Balance 59 ml 82 ml Result Diagram: 02/28/1730 02/28/17 0530 Laboratory Results Laboratory Tests Test 02/27/17 15:32 02/28/17 05:30 Prothrombin Time 17.3 SEC 17.5 SEC Prothromb Time International Ratio 1.5 RATIO 1.6 RATIO Activated Partial Thromboplast Time 32.4 SEC 33.8 SEC Fibrinogen 261 mg/dL 289 mg/dL White Blood Count 6.2 TH/MM3 Red Blood Count 2.87 MIL/MM3 Hemoglobin 8.7 GM/DL Hematocrit 26.1 % Mean Corpuscular Volume 91.1 FL Mean Corpuscular Hemoglobin 30.5 PG Mean Corpuscular Hemoglobin Concent 33.5 % Red Cell Distribution Width 16.8 % Platelet Count 94 TH/MM3 Mean Platelet Volume 10.5 FL Neutrophils (%) (Auto) 74.7 % Lymphocytes (%) (Auto) 10.1 % Monocytes (%) (Auto) 13.1 % Eosinophils (%) (Auto) 1.9 % Basophils (%) (Auto) 0.2 % Neutrophils # (Auto) 4.6 TH/MM3 Lymphocytes # (Auto) 0.6 TH/MM3 Monocytes # (Auto) 0.8 TH/MM3 Eosinophils # (Auto) 0.1 TH/MM3 Basophils # (Auto) 0.0 TH/MM3 CBC Comment AUTO DIFF Differential Comment AUTO DIFF CONFIRMED Platelet Estimate LOW Platelet Morphology Comment NORMAL Red Cell Morphology Comment NORMAL Blood Urea Nitrogen 53 MG/DL Creatinine 3.52 MG/DL Random Glucose 134 MG/DL Calcium Level 7.8 MG/DL Phosphorus Level 3.6 MG/DL Magnesium Level 1.9 MG/DL Sodium Level 141 MEQ/L Potassium Level 3.7 MEQ/L Chloride Level 104 MEQ/L Carbon Dioxide Level 26.1 MEQ/L Anion Gap 11 MEQ/L Estimat Glomerular Filtration Rate 20 ML/MIN Administered Medications Medications (Trade) Dose Ordered Sig/Fede Route PRN Reason Start Time Stop Time Status Last Admin Dose Admin Sodium Chloride (NS Flush) 2 ml BID IV FLUSH 02/19/17 21:00 02/28/17 09:00 Pantoprazole Sodium (Protonix Inj) 40 mg DAILY IV PUSH 02/20/17 09:00 02/28/17 09:28 Heparin Sodium (Porcine) (Heparin Inj) 5,000 units Q12H SQ 02/19/17 17:00 Future Hold 02/21/17 16:36 Chlorhexidine Gluconate (Chlorhexidine 2% Cloth) Taper DAILY@04 TOP 02/20/17 04:00 02/16/18 03:59 02/25/17 02:34 Senna/Docusate Sodium (Princess-Colace) 1 tab BID PO 02/19/17 21:00 02/26/17 08:52 Aspirin (Aspirin Chew) 81 mg DAILY CHEW 02/19/17 15:15 Future Hold 02/21/17 07:46 Metoprolol Tartrate (Lopressor) 25 mg Q8HR PO 02/19/17 16:30 02/27/17 05:40 Melatonin (Melatonin) 5 mg HS PRN PO SLEEP 02/19/17 22:15 02/20/17 21:45 Insulin Aspart (NovoLOG INJ) 3 units TIDAC SQ 02/20/17 12:00 Future Hold 02/22/17 08:00 Sodium Chloride 1,000 ml @ 200 mls/hr Q5H PRN IV WITH DIALYSIS 02/21/17 10:55 02/21/17 14:48 Mannitol (Mannitol Inj) 12.5 gm UNSCH PRN IV WITH DIALYSIS 02/21/17 11:00 02/21/17 14:48 Albumin Human 100 ml @ 60 mls/hr UNSCH PRN IV WITH DIALYSIS 02/21/17 11:00 02/25/17 13:37 Heparin Sodium (Porcine) (Heparin Inj) UNSCH PRN .XX WITH DIALYSIS 02/21/17 11:00 02/25/17 13:37 Gentamicin Sulfate (Gentamicin (Dialysis) Inj) 20 mg UNSCH PRN OTHER WITH DIALYSIS 02/21/17 11:00 02/25/17 13:38 Albuterol/ Ipratropium (Duoneb Neb) 1 ampule Q2HR NEB PRN INH WHEEZING 02/22/17 14:00 02/27/17 13:18 Lactobacillus Acidophilus (Lactinex) 1 tab TID PO 02/25/17 13:00 02/28/17 13:17 Insulin Aspart (NovoLOG SUPPLEMENTAL SCALE) 1 ACHS SLIDING SCALE SQ 02/27/17 12:00 02/28/17 11:50 Insulin Detemir (Levemir Inj) 8 units DAILYAC SQ 02/28/17 08:00 02/28/17 08:00 Levofloxacin (Levaquin) 250 mg DAILY PO 02/27/17 11:00 02/28/17 09:27 Metronidazole (Flagyl) 500 mg Q8HR PO 02/27/17 14:00 02/28/17 07:30 Sodium Chloride 1,000 ml @ 60 mls/hr [id number] IV 02/27/17 13:00 02/28/17 03:00 Norepinephrine Bitartrate 4 mg/ Sodium Chloride 250 ml @ 7.5 mls/hr TITRATE PRN IV Blood pressure management 02/27/17 13:30 02/28/17 00:18 Aspirin (Ecotrin Ec) 81 mg DAILY PO 02/28/17 09:00 02/28/17 09:28 Objective Remarks GENERAL: Elderly male lying in bed in no acute distress SKIN: Warm and dry. HEAD: Normocephalic. EYES: No injection or drainage. NECK: Supple, trachea midline. CARDIOVASCULAR: +S1/S2 RESPIRATORY: Anterior amador clear. Breathing unlabored. GASTROINTESTINAL: Abdomen non-tender. EXTREMITIES: No cyanosis. In bilateral soft wrist restraints NEUROLOGICAL: Speech somewhat garbled. Pt somnolent. Follows commands. Assessment/Plan Assessment 77y/o male admited with sepsis. h/o diabetes mellitus, hypertension, hypercholesterolemia and questionable developmental delay. chronic renal failure. Plan 1. His sepsis is impoving after IV antibiotics and it also appears his coagulopathy is improving. 2. His counts are trending up and it is expected that they will continue to do so. 3. Monitor periodic CBC Attending Statement The exam, history, and the medical decision-making described in the above note were completed with the assistance of the mid-level provider. I reviewed and agree with the findings presented. I attest that I had a [id number] encounter with the patient on the same day, and personally performed and documented my assessment and findings in the medical record. continues to improve slowly with platelet count rising. anticipate continued improvement as he distances himself from sepsis syndrome. Holly Muñoz Feb 28, 2017 14:56 Lj Castaneda MD Feb 28, 2017 16:28
--- NOTE | 2017-02-28 17:28 | EKG ---
Date Performed: 02/27/2017 Time Performed: 12:31:39 PTAGE: 77 years EKG: Sinus rhythm WITH FREQUENT VENTRICULAR PREMATURE COMPLEXES MINIMAL ST DEPRESSION ABNORMAL RHYTHM ECG INTERPRETATI ON BASED ON A DEFAULT AGE OF 40 YEARS PREVIOUS TRACING : 02/19/2017 12.07 Compared to prior tracing no significant change DOCTOR: Kelsy Walter Interpretating Date/Time 02/28/2017 17:27:23
[2017-03-01] VITALS (10 sets, daily range): BP systolic 95–120; BP diastolic 51–68; PULSE 63–98; RESP 11–20; TEMP 97.7–98.5; O2SAT 94–100
[2017-03-01] MEDS: ACETAMINOPHEN 325 MG TAB PO PRN ×2 (02:27)
[2017-03-01] MEDS: CHLORHEXIDINE GLUCONATE 2 % 1 PACK (2 CLOTHS) TOP SCH ×2 (04:00)
[2017-03-01 04:59] LABS: INTERNATIONAL NORMALIZED RATIO 1.5 RATIO; PROTHROMBIN TIME - PATIENT 16.8 SEC (9.8-11.6)
[2017-03-01] MEDS: METOPROLOL TARTRATE 25 MG TAB PO SCH ×6 (05:48→22:58)
[2017-03-01] MEDS: metroNIDAZOLE 500 MG TAB PO SCH ×6 (05:48→22:58)
[2017-03-01] MEDS: INSULIN DETEMIR 100 UNITS/ML VIAL SQ SCH ×4 (08:00→22:58)
[2017-03-01] MEDS: INSULIN ASPART SUPPLEMENTAL SCALE SQ SCH ×8 (08:00→22:59)
[2017-03-01] MEDS: LACTOBACILLUS ACIDOPHILUS TAB PO SCH ×6 (08:22→17:24)
[2017-03-01] MEDS: LEVOFLOXACIN 250 MG TAB PO SCH ×2 (08:22)
[2017-03-01] MEDS: ASPIRIN EC 81 MG TABEC PO SCH ×2 (08:22)
[2017-03-01] MEDS: SODIUM CHLORIDE 0.9% FLUSH 10 ML FLUSH IV FLUSH SCH ×4 (08:23→22:58)
[2017-03-01] MEDS: DOCUSATE SODIUM 50 MG/SENNA 8.6 MG TAB PO SCH ×4 (08:23→21:00)
[2017-03-01] MEDS: PANTOPRAZOLE SODIUM 40 MG VIAL IV PUSH SCH ×2 (08:23)
--- NOTE | 2017-03-01 10:42 | HHI.IDPN ---
Subjective Subjective Remarks Patient is a 77-year-old male, admitted to the hospital, after he was found down in his apartment. He was apparently last seen about 3 days prior to admission, and he was in his usual self. EMS was called, and patient had very high blood sugar, looked clinically dehydrated, and was tachypneic. His laboratory data showed acute renal failure with a creatinine of 5.3. His WBC was normal, hemoglobin 10.6, and platelet count was 97. Prior creatinine level was between 1.8-2. His AST and ALT are also elevated. CT of the head was negative. Chest x-ray was normal. Renal ultrasound did not show any evidence of hydronephrosis. Urinalysis was unremarkable. His lactic acid was elevated. Patient was started on broad-spectrum antibiotics. His urine output remains low, and the patient started on hemodialysis. Patient has received fluid resuscitation with minimal improvement in his creatinine. 1 out of the 2 blood cultures is now reported as coag-negative staph. Patient also since admission has developed progressive worsening of his thrombocytopenia. He had been on Zosyn, and he received one dose of vancomycin today. Patient also had an ultrasound of the liver which showed evidence of gallstones, and gallbladder wall thickening, but no evidence of pericholecystic fluid. Patient is afebrile. His blood pressure is okay. He is on nasal O2. Infectious disease consultation has been requested to evaluate the patient with positive blood culture. Notes reviewed D/W RN Transferred to ICU - unresponsive and with low BP Got levo for short time, BP better, and MS improved Not on pressors Temps ok No abdominal pain Last HD 02/25 HIDA c/w chronic cholecystitis Creatinine elevated WBC normal No new (+) BC Antibiotics Levaquin Flagyl I attest that I obtained, updated or reviewed the home and current medications. Current Medications Medications (Trade) Dose Ordered Sig/Fede Route Start Time Stop Time Status Last Admin (Sodium Bicarbonate 8.4% Inj) 100 meq UNSCH PRN IV PUSH 02/19/17 13:45 (Sodium Bicarbonate 8.4% Inj) 50 meq UNSCH PRN IV PUSH 02/19/17 13:45 Sodium Phosphate 15 mmol/Sodium Chloride 105 ml @ 25 mls/hr UNSCH PRN IV 02/19/17 13:45 (NS Flush) 2 ml UNSCH PRN IV FLUSH 02/19/17 14:15 (NS Flush) 2 ml BID IV FLUSH 02/19/17 21:00 03/01/17 08:23 (Heparin Inj) 5,000 units Q12H SQ 02/19/17 17:00 Future Hold 02/21/17 16:36 Miscellaneous Information 1 Q361D XX 02/19/17 14:15 (Chlorhexidine 2% Cloth) Taper DAILY@04 TOP 02/20/17 04:00 02/16/18 03:59 02/25/17 02:34 (Chlorhexidine 2% Cloth) 3 pack UNSCH PRN TOP 02/19/17 14:15 (Princess-Colace) 1 tab BID PO 02/19/17 21:00 02/26/17 08:52 (Milk Of Magnesia Liq) 30 ml Q12H PRN PO 02/19/17 14:15 (Senokot) 17.2 mg Q12H PRN PO 02/19/17 14:15 (Dulcolax Supp) 10 mg DAILY PRN RECTAL 02/19/17 14:15 (Lactulose Liq) 30 ml DAILY PRN PO 02/19/17 14:15 (Lopressor) 25 mg Q8HR PO 02/19/17 16:30 02/27/17 05:40 (Melatonin) 5 mg HS PRN PO 02/19/17 22:15 02/20/17 21:45 (Ativan Inj) 1 mg Q6H PRN IV PUSH 02/21/17 08:00 Sodium Chloride 1,000 ml @ 0 mls/hr Q0M PRN OTHER 02/21/17 10:55 (Heparin Inj) 8,000 units UNSCH PRN IV FLUSH 02/21/17 11:00 Sodium Chloride 1,000 ml @ 200 mls/hr Q5H PRN IV 02/21/17 10:55 02/21/17 14:48 Sodium Chloride 1,000 ml @ 0 mls/hr Q0M PRN OTHER 02/21/17 10:55 (Mannitol Inj) 12.5 gm UNSCH PRN IV 02/21/17 11:00 02/21/17 14:48 Albumin Human 100 ml @ 60 mls/hr UNSCH PRN IV 02/21/17 11:00 02/25/17 13:37 (NS Flush) 5 ml UNSCH PRN IV FLUSH 02/21/17 11:00 (Heparin Inj) UNSCH PRN .XX 02/21/17 11:00 02/25/17 13:37 (Gentamicin (Dialysis) Inj) 20 mg UNSCH PRN OTHER 02/21/17 11:00 02/25/17 13:38 (Zofran Inj) 4 mg UNSCH PRN IV PUSH 02/21/17 11:00 (Tylenol) 650 mg UNSCH PRN PO 02/21/17 11:00 03/01/17 02:27 (Benadryl) 25 mg UNSCH PRN PO 02/21/17 11:00 (Nitrostat Sl) 0.4 mg UNSCH PRN SL 02/21/17 11:00 (Catapres) 0.1 mg UNSCH PRN PO 02/21/17 11:00 (Gelfoam 12 Mm/7 Mm Top) 1 foam UNSCH PRN TOP 02/21/17 11:00 (Duoneb Neb) 1 ampule Q2HR NEB PRN INH 02/22/17 14:00 02/27/17 13:18 (D50w (Vial) Inj) 50 ml UNSCH PRN IV PUSH 02/24/17 08:30 (Glucagon Inj) 1 mg UNSCH PRN OTHER 02/24/17 08:30 (Lactinex) 1 tab TID PO 02/25/17 13:00 03/01/17 12:34 (NovoLOG SUPPLEMENTAL SCALE) 1 ACHS SLIDING SCALE SQ 02/27/17 12:00 03/01/17 11:58 (Levemir Inj) 8 units DAILYAC SQ 02/28/17 08:00 03/01/17 08:00 (Levemir Inj) 8 units HS SQ 02/27/17 21:00 (Levaquin) 250 mg DAILY PO 02/27/17 11:00 03/05/17 10:59 03/01/17 08:22 (Flagyl) 500 mg Q8HR PO 02/27/17 14:00 03/05/17 12:00 03/01/17 14:14 (Brethine Inj) 1 mg UNSCH PRN SQ 02/27/17 13:30 (Ecotrin Ec) 81 mg DAILY PO 02/28/17 09:00 03/01/17 08:22 Lines LSC TLC RIJ vascath Past Medical History Type 2 diabetes Hypertension Dyslipidemia Possible developmental delay Past Surgical History Cataract extraction Dental extraction Appendectomy Allergies: Coded Allergies: No Known Allergies (Verified , 02/19/17) Objective . Vital Signs Date Time Temp Pulse Resp B/P (MAP) Pulse Ox O2 Delivery O2 Flow Rate FiO2 03/01/17 08:00 97.9 88 11 111/63 (79) 100 03/01/17 08:00 100 Room Air 03/01/17 08:00 88 03/01/17 07:58 100 21 03/01/17 06:00 87 03/01/17 04:00 98.0 83 12 95/51 (66) 100 03/01/17 04:00 83 03/01/17 02:00 90 03/01/17 00:00 92 03/01/17 00:00 98.1 92 17 119/63 (81) 100 02/28/17 22:00 92 02/28/17 20:41 100 02/28/17 20:00 90 02/28/17 20:00 98.0 90 17 109/62 (78) 98 02/28/17 19:00 98 Room Air 02/28/17 16:00 88 02/28/17 16:00 97.7 88 14 105/66 (79) 100 02/28/17 12:00 97.7 83 16 111/62 (78) 100 02/28/17 12:00 83 . Laboratory Tests Test 02/27/17 12:31 02/28/17 05:30 White Blood Count 7.6 TH/MM3 6.2 TH/MM3 Red Blood Count 3.10 MIL/MM3 2.87 MIL/MM3 Hemoglobin 9.4 GM/DL 8.7 GM/DL Bedside Hemoglobin 10.5 G/DL Hematocrit 27.9 % 26.1 % Bedside Hematocrit 31.0 % Mean Corpuscular Volume 90.0 FL 91.1 FL Mean Corpuscular Hemoglobin 30.3 PG 30.5 PG Mean Corpuscular Hemoglobin Concent 33.6 % 33.5 % Red Cell Distribution Width 16.0 % 16.8 % Platelet Count 69 TH/MM3 94 TH/MM3 Mean Platelet Volume 10.3 FL 10.5 FL Neutrophils (%) (Auto) 74.1 % 74.7 % Lymphocytes (%) (Auto) 8.8 % 10.1 % Monocytes (%) (Auto) 14.7 % 13.1 % Eosinophils (%) (Auto) 2.3 % 1.9 % Basophils (%) (Auto) 0.1 % 0.2 % Neutrophils # (Auto) 5.6 TH/MM3 4.6 TH/MM3 Lymphocytes # (Auto) 0.7 TH/MM3 0.6 TH/MM3 Monocytes # (Auto) 1.1 TH/MM3 0.8 TH/MM3 Eosinophils # (Auto) 0.2 TH/MM3 0.1 TH/MM3 Basophils # (Auto) 0.0 TH/MM3 0.0 TH/MM3 CBC Comment AUTO DIFF AUTO DIFF Differential Comment AUTO DIFF CONFIRMED AUTO DIFF CONFIRMED Platelet Estimate LOW LOW Platelet Morphology Comment NORMAL NORMAL Ovalocytes 1+ Red Cell Morphology Comment NORMAL Laboratory Tests Test 02/27/17 12:31 02/28/17 05:30 Bedside Sodium 143 MMOL/L Blood Urea Nitrogen 36 MG/DL 53 MG/DL Creatinine 2.38 MG/DL 3.52 MG/DL Random Glucose 106 MG/DL 134 MG/DL Albumin 2.7 GM/DL Calcium Level 8.2 MG/DL 7.8 MG/DL Phosphorus Level 1.6 MG/DL 3.6 MG/DL Magnesium Level 1.9 MG/DL 1.9 MG/DL Sodium Level 141 MEQ/L 141 MEQ/L Potassium Level 3.6 MEQ/L 3.7 MEQ/L Chloride Level 103 MEQ/L 104 MEQ/L Carbon Dioxide Level 30.0 MEQ/L 26.1 MEQ/L Bedside Potassium 3.6 MMOL/L Bedside Chloride 99 MMOL/L Anion Gap 8 MEQ/L 11 MEQ/L Bedside Blood Urea Nitrogen 34 MG/DL Bedside Creatinine 2.3 MG/DL Estimat Glomerular Filtration Rate 32 ML/MIN 20 ML/MIN Bedside Glucose 107 MG/DL Hemoglobin A1c 10.0 % Total Creatine Kinase 43 U/L Troponin I 0.26 NG/ML Imaging Last Impressions Hepatobiliary Scan Nuclear Medicine 02/24/17 0000 Signed Impressions: Service Date/Time: Friday, February 24, 2017 12:33 - CONCLUSION: 1. Lack of visualization of the gallbladder. We will have the patient return for delayed imaging. At this point acute cholecystitis versus chronic cholecystitis. Dontrell Mcqueen Jr., MD Chest X-Ray 02/21/17 0600 Signed Impressions: Service Date/Time: Tuesday, February 21, 2017 04:36 - CONCLUSION: Bibasilar areas of suspected consolidation/atelectasis and effusion being worse on the right. The findings have worsened since the prior exam. Flakito Chan MD Liver Ultrasound 02/20/17 0000 Signed Impressions: Service Date/Time: Monday, February 20, 2017 10:51 - CONCLUSION: Gallstones and gallbladder wall thickening. There is no intrahepatic biliary duct dilatation. Rylan Wang MD FACR Head CT 02/19/17 1205 Signed Impressions: Service Date/Time: February 13:02 - CONCLUSION: 1. Cortical atrophy. 2. No acute abnormality identified. The examination is stable compared to prior dated 04/17/12. Sharath Wang MD Renal Ultrasound 02/19/17 0000 Signed Impressions: Service Date/Time: February 17:19 - CONCLUSION: No evidence of hydronephrosis. Indwelling Scott catheter with collapsed bladder in thickened bladder wall. Cal Tomlinson MD Physical Exam GENERAL: awake and alert, not in respiratory distress. Following all commands SKIN: Cool and moist. No generalized rash HEAD: Atraumatic. Normocephalic. No temporal wasting, or tenderness. EYES: [place] conjunctiva. No petechia or hemorrhage. Extraocular movements full and intact. No scleral icterus. No injection or drainage. EARS, NOSE AND THROAT: Nose without bleeding or purulent nasal discharge. Did not cooperate and Im unable to examine his oropharynx NECK: Trachea midline. Supple and not tender, no meningeal signs CARDIOVASCULAR: Regular rate and rhythm. No murmurs, rubs or gallops heard RESPIRATORY: Clear to auscultation, but decreased at the bases. Breath sounds equal bilaterally. No rales, wheezing or rhonchi ABDOMEN: Soft, nondistended, bowel sounds present and normoactive. Not tender , no guarding. No rebound. No organomegaly. EXTREMITIES: No clubbing, cyanosis, or edema.No joint effusion, has good ROM. No calf tenderness. Well perfused and warm. NEUROLOGICAL: Awake and alert. 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 Moves both LE. No Babinski PSYCHIATRIC: calm and cooperative. LINE: No evidence of infection Assessment & Plan Remarks IMPRESSION One (+) BC with Coag Neg Staph C/W contaminant Possible sepsis on admission, source? - better - CXR clear, UA ok - ?biliary tree, has elevated LFT, R side tenderness, GB wall thickening and gallstones - chronic merissa on HIDA scan Acute renal failure, on CKD Baseline ?mental delay - he is following all commands, knows his age, knows he is at [facility] Thrombocytopenia, better - ?Abx - DIC screen (+) Bilateral infiltrates likely fluid overload RECOMMENDATION Continue Levaquin and Flagyl - change to po - give until 03/05 Monitor progress Clinically seems stable from ID standpoint D/W Sugar Martinez MD Mar 01, 2017 10:42
--- NOTE | 2017-03-01 11:25 | HHI.PR ---
Subjective Remarks Consulted by critical care medicine for transfer of care and medical management. Case discussed with Dr. Alarcon. Seen for encephalopathy. Patient is alert and oriented to person, place and situation. He has no complaints. He has been placed on restraints because he was reaching for the Vas-Cath. Case discussed with RN. Left message with family Renae. Discussed with case management Objective Vitals Vital Signs Date Time Temp Pulse Resp B/P (MAP) Pulse Ox O2 Delivery O2 Flow Rate FiO2 03/01/17 08:00 97.9 88 11 111/63 (79) 100 03/01/17 08:00 100 Room Air 03/01/17 08:00 88 03/01/17 07:58 100 21 03/01/17 06:00 87 03/01/17 04:00 98.0 83 12 95/51 (66) 100 03/01/17 04:00 83 03/01/17 02:00 90 03/01/17 00:00 92 03/01/17 00:00 98.1 92 17 119/63 (81) 100 02/28/17 22:00 92 02/28/17 20:41 100 02/28/17 20:00 90 02/28/17 20:00 98.0 90 17 109/62 (78) 98 02/28/17 19:00 98 Room Air 02/28/17 16:00 88 02/28/17 16:00 97.7 88 14 105/66 (79) 100 02/28/17 12:00 97.7 83 16 111/62 (78) 100 02/28/17 12:00 83 I/O 02/28/17 02/28/17 02/28/17 03/01/17 03/01/17 03/01/17 06:59 14:59 22:59 06:59 14:59 22:59 Intake Total 159 ml 82 ml 1140 ml 340 ml Output Total 100 ml Balance 59 ml 82 ml 1140 ml 340 ml Intake Oral 1140 ml 340 ml IV Total 159 ml 82 ml Output Urine Total 100 ml # Voids 3 3 # Bowel Movements 2 3 Result Diagram: 02/28/17 0530 02/28/17 0530 Imaging Last Impressions Head CT 02/27/17 0000 Signed Impressions: Service Date/Time: Monday, February 27, 2017 12:47 - CONCLUSION: 1. No acute intracranial abnormality is identified. There are no findings to indicate ischemia and no acute blood products are present. 2. Chronic brain changes include generalized atrophy and periventricular white matter change characteristic of chronic microvascular ischemia. 3. There is trace air within the cavernous sinus bilaterally and in the left superior ophthalmic vein likely related to IV access. Flakito Silva MD Chest X-Ray 02/27/17 Signed Impressions: Service Date/Time: Monday, February 27, 2017 13:44 - CONCLUSION: 1. No significant change in right-sided pleural effusion. 2. Mild improved aeration of the lung bases. 3. Stable cardiomegaly. Oliverio Espinal MD Carotid Artery Ultrasound 02/27/17 Signed Impressions: Service Date/Time: Monday, February 27, 2017 14:35 - CONCLUSION: 1. Severe noncalcified plaque in the left carotid bulb and left internal carotid artery with a possible complete occlusion of the left internal carotid artery. No Doppler signal is identified in the vessel which could indicate complete occlusion or severe high-grade stenosis. Consider carotid CTA for further evaluation. 2. There is mild to moderate noncalcified plaque in the right carotid bulb. Less than 50%% stenosis is present within the right internal carotid artery. 3. Please note that the right external carotid artery is not visualized. Flakito Silva MD Hepatobiliary Scan Nuclear Medicine 02/24/17 Signed Impressions: Service Date/Time: Friday, February 24, 2017 12:33 - CONCLUSION: 1. Lack of visualization of the gallbladder. We will have the patient return for delayed imaging. At this point acute cholecystitis versus chronic cholecystitis. Dontrell Mcqueen Jr., MD ADDENDUM: 24-hour delayed imaging shows activity within the gallbladder. This would be consistent with chronic cholecystitis. Dontrell Mcqueen Jr., MD Liver Ultrasound 02/20/17 Signed Impressions: Service Date/Time: Monday, February 20, 2017 10:51 - CONCLUSION: Gallstones and gallbladder wall thickening. There is no intrahepatic biliary duct dilatation. Rylan Wang MD FACR Renal Ultrasound 02/19/17 Signed Impressions: Service Date/Time: February 17:19 - CONCLUSION: No evidence of hydronephrosis. Indwelling Scott catheter with collapsed bladder in thickened bladder wall. Cal Tomlinson MD Objective Remarks GENERAL: WD WN on 2L NC SKIN: Warm and dry. HEAD: Atraumatic. Normocephalic. EYES: Pupils equal and round. No scleral icterus. No injection or drainage. ENT: No nasal bleeding or discharge. Mucous membranes pink and moist. NECK: Trachea midline. No JVD. CARDIOVASCULAR: Regular rate and rhythm. Systolic murmur noted RESPIRATORY: No accessory muscle use. Decreased Breath sounds equal bilaterally. GASTROINTESTINAL: Abdomen soft, non-tender, nondistended. MUSCULOSKELETAL: Extremities without clubbing, cyanosis, or edema. No obvious deformities. NEUROLOGICAL: Awake and alert. No obvious cranial nerve deficits. Motor grossly within normal limits. Procedures Vascath A/P Problem List: (1) Acute metabolic encephalopathy ICD Code: G93.41 - Metabolic encephalopathy (2) Altered mental status ICD Code: R41.82 - Altered mental status, unspecified Status: Acute (3) DKA (diabetic ketoacidoses) ICD Code: E13.10 - Other specified diabetes mellitus with ketoacidosis without coma Status: Resolved (4) Non-STEMI (non-ST elevated myocardial infarction) ICD Code: I21.4 - Non-ST elevation (NSTEMI) myocardial infarction Status: Acute (5) Dehydration with hypernatremia ICD Code: E87.0 - Hyperosmolality and hypernatremia Status: Resolved (6) Sepsis ICD Code: A41.9 - Sepsis, unspecified organism Status: Acute (7) UTI (urinary tract infection) ICD Code: N39.0 - Urinary tract infection, site not specified Status: Acute (8) Acute renal failure ICD Code: N17.9 - Acute kidney failure, unspecified Status: Acute (9) Hyperglycemia ICD Code: R73.9 - Hyperglycemia, unspecified Status: Acute (10) Lactic acidemia ICD Code: E87.2 - Acidosis (11) Transaminitis ICD Code: R74.0 - Nonspecific elevation of levels of transaminase and lactic acid dehydrogenase [LDH] (12) Respiratory insufficiency ICD Code: R06.89 - Other abnormalities of breathing Assessment and Plan Acute encephalopathy, multifactorial. Improving recent episode likely secondary to metabolic derangement during hemodialysis. Evaluated by neurology recommended aspirin -repeated CT with no acute abnormality. -Treat agitation with when necessary Haldol -EEG without seizure activity. Carotid sonogram showed left carotid occlusion and 50% stenosis on the right carotid. Patient on aspirin. Patient on statin currently on hold because of transaminitis. Telemetry shows nonsustained V. tach but was asymptomatic during the episode. Holter monitor Continue to monitor. -Sleep study outpatient Respiratory insufficiency - keep on oxygen as needed to keep O2 sat >90% - continue neb treatment. elevated troponin Hypertension cardiomyopathy - echo with EF 25% - Aspirin - Metoprolol 25 mg every 8 hours. Unable to start MILDRED inhibitor secondary to acute kidney injury - Avoid statins due to transaminitis - evaluated by cardiology. Transaminitis chronic cholecystitis - Monitor liver enzymes Acute kidney injury superimposed on chronic kidney disease Severe dehydration - Baseline creatinine 1.8 to 2. Acute worsening secondary to severe dehydration , ATN and DKA - Monitor renal function closely. - HD initiated. - Nephrology following. Probable sepsis UTI -- one bottle of the blood cultures with staph coag. negative-likely contamination. -ID consult appreciated and started on Levaquin and Flagyl until March 05. diarrhea- stool negative for c-diff. Anemia thrombocytopenia from Sepsis/DIC -heparin on hold. -hematology following. -Monitor CBC. DKA-resolved but hyperglycemic hypoglycemic episodes- this has resolved. -continue sliding scale coverage. -adjust levemir, A1c 10 -continue to monitor for hypoglycemia PROPH: - Bilateral lower extremity SCDs. hold Heparin as noted above. Discharge Planning Stable for transfer to floor Problem Qualifiers (1) Altered mental status: Qualified Codes: R41.82 - Altered mental status, unspecified (2) DKA (diabetic ketoacidoses): (3) Sepsis: Qualified Codes: A41.9 - Sepsis, unspecified organism (4) UTI (urinary tract infection): (5) Acute renal failure: Qualified Codes: N17.9 - Acute kidney failure, unspecified Isrrael Tamayo MD Mar 01, 2017 11:25
--- NOTE | 2017-03-01 12:44 | HHI.NPPN ---
Subjective General Problems: Mebatolic Acidosis Renal Failure: Chronic, Acute Additional Remarks Patient is more alert today, eating better, no SOB. Review of Systems General General Remarks unable to evaluate Objective Data Data Vital Signs Date Time Temp Pulse Resp B/P (MAP) Pulse Ox O2 Delivery O2 Flow Rate FiO2 03/01/17 12:00 97.8 92 16 105/56 (72) 100 03/01/17 12:00 92 03/01/17 08:00 97.9 88 11 111/63 (79) 100 03/01/17 08:00 100 Room Air 03/01/17 08:00 88 03/01/17 07:58 100 21 03/01/17 06:00 87 03/01/17 04:00 98.0 83 12 95/51 (66) 100 03/01/17 04:00 83 03/01/17 02:00 90 03/01/17 00:00 92 03/01/17 00:00 98.1 92 17 119/63 (81) 100 02/28/17 22:00 92 02/28/17 20:41 100 02/28/17 20:00 90 02/28/17 20:00 98.0 90 17 109/62 (78) 98 02/28/17 19:00 98 Room Air 02/28/17 16:00 88 02/28/17 16:00 97.7 88 14 105/66 (79) 100 -: 02/28/17 0530 02/28/17 0530 Tubes & Lines: Vas-Cath Tubes & Lines Comment NG tube Drip Comment None Physical Exam General Appearance: No Acute Distress, Comfortable, Malnourished Eyes Eye Exam: Pupils Equal Throat Throat Exam: Oral Mucosa [place] & Moist Neck Neck Exam: Neck Supple Pulmonary Resp Exam: Breath Sounds Equal, No Distress, Rhonchi, Decreased Bases Cardiology CV Exam: Regular, Normal Sinus Rhythm, Good Perfusion Gastrointestinal/Abdomen GI Exam: Soft, Non-Tender, Bowel Sounds Present Genitourinary Exam: Bladder Non-Palpable Musculoskeletal MS Exam: Joints Intact, Normal Tone, Unable to Ambulate Integumentary Skin Exam: Clear, Warm, Dry, Intact Extremeties Extremities Exam: Trace Edema Neurologic Neuro Exam: Obtunded Assessment/Plan Assessment Summary: HERVE/Acute Renal Failure, Acute Tubular Necrosis, Diabetes Mellitus Electrolyte Assessment: Metabolic Acidosis Problem List: (1) Acute renal failure ICD Codes: N17.9 - Acute kidney failure, unspecified Status: Acute Plan: This patient has underlying renal impairment, creatinine 1.8-2 at baseline He has 1.2 g proteinuria, which 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 HERVE due to ATN secondary to dehydration, sepsis, and DKA Vascath placed and HD started 02/21, on -- HD Due today for dialysis He is oliguric, monitor output and await recovery phase valenzuela has been removed, has condom catheter Repeat labs have been ordered Off IVF Passed swallow , off tube feeding Avoid nephrotoxic agents HD on Thursday if needed No new BMP, has been non oliguric. Follow the Creatinine in AM, and possible HD. Dr. Quintanilla will follow in AM and decide about D/C planning. (2) DKA (diabetic ketoacidoses) ICD Codes: E13.10 - Other specified diabetes mellitus with ketoacidosis without coma Status: Resolved Plan: DKA resolved, difficulty controlling glucose, variable glucose, better today continue to adjust insulin with primary team. (3) Sepsis ICD Codes: A41.9 - Sepsis, unspecified organism Status: Acute Plan: Elevated lactic acid He is on Flagyl and Levaquin 1/2 blood cultures with staph hominis, likely contaminant HIDA scan taken, unable to visualize GB, acute vs chronic merissa, repeat HIDA ordered (4) Elevated troponin ICD Codes: R74.8 - Abnormal levels of other serum enzymes Plan: cardiology has evaluated suspect demand ischemia as etiology of elevated troponin levels 2D echo shows EF 25% (5) Dehydration with hypernatremia ICD Codes: E87.0 - Hyperosmolality and hypernatremia Status: Resolved Plan: Corrected, monitor for recurrence Problem Qualifiers (1) Acute renal failure: Qualified Codes: N17.9 - Acute kidney failure, unspecified (2) DKA (diabetic ketoacidoses): (3) Sepsis: Qualified Codes: A41.9 - Sepsis, unspecified organism Jocelin Villar MD Mar 01, 2017 12:44
[2017-03-01] MEDS: MELATONIN 5 MG TAB PO PRN ×2 (22:58)
[2017-03-02] VITALS (8 sets, daily range): BP systolic 85–128; BP diastolic 51–67; PULSE 70–92; RESP 18–20; TEMP 97.3–99; O2SAT 94–100
[2017-03-02] MEDS: CHLORHEXIDINE GLUCONATE 2 % 1 PACK (2 CLOTHS) TOP SCH ×2 (03:22)
[2017-03-02] MEDS: metroNIDAZOLE 500 MG TAB PO SCH ×6 (06:40→20:23)
[2017-03-02] MEDS: METOPROLOL TARTRATE 25 MG TAB PO SCH ×6 (06:40→20:27)
[2017-03-02] MEDS: INSULIN ASPART SUPPLEMENTAL SCALE SQ SCH ×8 (08:00→20:26)
[2017-03-02 08:59] LABS: ALBUMIN 2.4 GM/DL (3.4-5.0); BICARBONATE 22.5 MEQ/L (21.0-32.0); CALCIUM 8.1 MG/DL (8.5-10.1); CREATININE 4.15 MG/DL (0.60-1.30); PHOSPHORUS 4.3 MG/DL (2.5-4.9)
[2017-03-02 09:01] LABS: CHOLESTEROL/ HDL RATIO 3.14 RATIO; HDL CHOLESTEROL 28.3 MG/DL (40.0-60.0)
--- NOTE | 2017-03-02 09:02 | PD.ONC.PN ---
Subjective Subjective Remarks Afebrile overnight. No complaints. Resting in bed in nad. Nurse at bedside. Objective Data Date Time Temp Pulse Resp B/P (MAP) Pulse Ox O2 Delivery O2 Flow Rate FiO2 03/02/17 04:00 Room Air 03/02/17 04:00 97.8 81 20 128/67 (87) 97 03/02/17 00:18 94 03/02/17 00:00 Room Air 03/02/17 00:00 97.3 92 20 121/57 (78) 95 03/01/17 20:00 98 03/01/17 20:00 Room Air 03/01/17 20:00 97.7 63 18 120/58 (78) 94 03/01/17 18:25 98 03/01/17 15:30 98.5 98 20 120/68 (85) 99 03/01/17 12:00 97.8 92 16 105/56 (72) 100 03/01/17 12:00 92 03/02/17 03/02/17 03/02/17 07:00 15:00 23:00 Intake Total 610 ml Output Total 550 ml Balance 60 ml Result Diagram: 02/28/17 0530 03/02/17 0735 Laboratory Results Laboratory Tests Test 03/02/17 07:35 Blood Urea Nitrogen 59 MG/DL Creatinine 4.15 MG/DL Random Glucose 93 MG/DL Albumin 2.4 GM/DL Calcium Level 8.1 MG/DL Phosphorus Level 4.3 MG/DL Sodium Level 138 MEQ/L Potassium Level 4.0 MEQ/L Chloride Level 104 MEQ/L Carbon Dioxide Level 22.5 MEQ/L Anion Gap 12 MEQ/L Estimat Glomerular Filtration Rate 17 ML/MIN Triglycerides Level 72 MG/DL Cholesterol Level 89 MG/DL Administered Medications Medications (Trade) Dose Ordered Sig/Fede Route PRN Reason Start Time Stop Time Status Last Admin Dose Admin Sodium Chloride (NS Flush) 2 ml BID IV FLUSH 02/19/17 21:00 03/01/17 22:58 Heparin Sodium (Porcine) (Heparin Inj) 5,000 units Q12H SQ 02/19/17 17:00 Future Hold 02/21/17 16:36 Chlorhexidine Gluconate (Chlorhexidine 2% Cloth) Taper DAILY@04 TOP 02/20/17 04:00 02/16/18 03:59 02/25/17 02:34 Senna/Docusate Sodium (Princess-Colace) 1 tab BID PO 02/19/17 21:00 02/26/17 08:52 Metoprolol Tartrate (Lopressor) 25 mg Q8HR PO 02/19/17 16:30 03/02/17 06:40 Melatonin (Melatonin) 5 mg HS PRN PO SLEEP 02/19/17 22:15 03/01/17 22:58 Sodium Chloride 1,000 ml @ 200 mls/hr Q5H PRN IV WITH DIALYSIS 02/21/17 10:55 02/21/17 14:48 Mannitol (Mannitol Inj) 12.5 gm UNSCH PRN IV WITH DIALYSIS 02/21/17 11:00 02/21/17 14:48 Albumin Human 100 ml @ 60 mls/hr UNSCH PRN IV WITH DIALYSIS 02/21/17 11:00 02/25/17 13:37 Heparin Sodium (Porcine) (Heparin Inj) UNSCH PRN .XX WITH DIALYSIS 02/21/17 11:00 02/25/17 13:37 Gentamicin Sulfate (Gentamicin (Dialysis) Inj) 20 mg UNSCH PRN OTHER WITH DIALYSIS 02/21/17 11:00 02/25/17 13:38 Acetaminophen (Tylenol) 650 mg UNSCH PRN PO for headach, pain, temp > 101F 02/21/17 11:00 03/01/17 02:27 Albuterol/ Ipratropium (Duoneb Neb) 1 ampule Q2HR NEB PRN INH WHEEZING 02/22/17 14:00 02/27/17 13:18 Lactobacillus Acidophilus (Lactinex) 1 tab TID PO 02/25/17 13:00 03/01/17 17:24 Insulin Aspart (NovoLOG SUPPLEMENTAL SCALE) 1 ACHS SLIDING SCALE SQ 02/27/17 12:00 03/01/17 22:59 Insulin Detemir (Levemir Inj) 8 units DAILYAC SQ 02/28/17 08:00 03/01/17 08:00 Insulin Detemir (Levemir Inj) 8 units HS SQ 02/27/17 21:00 03/01/17 22:58 Levofloxacin (Levaquin) 250 mg DAILY PO 02/27/17 11:00 03/05/17 10:59 03/01/17 08:22 Metronidazole (Flagyl) 500 mg Q8HR PO 02/27/17 14:00 03/05/17 12:00 03/02/17 06:40 Aspirin (Ecotrin Ec) 81 mg DAILY PO 02/28/17 09:00 03/01/17 08:22 Objective Remarks GENERAL: chronically ill male upright in bed, left sided paresis. SKIN: Warm and dry. HEAD: Normocephalic. EYES: no injection or drainage. NECK: Supple, trachea midline. CARDIOVASCULAR: +S1/S2 RESPIRATORY: anterior amador clear. GASTROINTESTINAL: Abdomen soft, non-tender, nondistended. EXTREMITIES: No cyanosis NEUROLOGICAL: left sided paresis. garbled speech. Assessment/Plan Problem List: (1) thrombocytopenia Plan: 03/02: await CBC, coags -- multifactorial due to sepsis, DIC and medications (2) acute renal failure, history of chronic kidney disease; possible ATN Plan: --on dialysis Assessment 77y/o male admited with sepsis. h/o diabetes mellitus, hypertension, hypercholesterolemia and questionable developmental delay. chronic renal failure. Attending Statement The exam, history, and the medical decision-making described in the above note were completed with the assistance of the mid-level provider. I reviewed and agree with the findings presented. I attest that I had a [id number] encounter with the patient on the same day, and personally performed and documented my assessment and findings in the medical record. No new c/o plat improving and now 140K sepsis is resolving Alba Figueredo Mar 02, 2017 09:02 Alejandra Fraire MD Mar 02, 2017 17:07
[2017-03-02] MEDS: ASPIRIN EC 81 MG TABEC PO SCH ×2 (09:21)
[2017-03-02] MEDS: LACTOBACILLUS ACIDOPHILUS TAB PO SCH ×6 (09:21→17:57)
[2017-03-02] MEDS: LEVOFLOXACIN 250 MG TAB PO SCH ×2 (09:21)
[2017-03-02] MEDS: DOCUSATE SODIUM 50 MG/SENNA 8.6 MG TAB PO SCH ×4 (09:21→20:23)
[2017-03-02] MEDS: SODIUM CHLORIDE 0.9% FLUSH 10 ML FLUSH IV FLUSH SCH ×4 (09:21→20:27)
[2017-03-02] MEDS: INSULIN DETEMIR 100 UNITS/ML VIAL SQ SCH ×4 (09:25→20:26)
--- NOTE | 2017-03-02 10:41 | HHI.NPPN ---
Subjective General Problems: Mebatolic Acidosis Renal Failure: Chronic, Acute Interval History He is more alert, follows commands. Urine output is improving. (Gely Dill) Review of Systems General General Remarks no complaints (Gely Dill) Objective Data Data Vital Signs Date Time Temp Pulse Resp B/P (MAP) Pulse Ox O2 Delivery O2 Flow Rate FiO2 03/02/17 04:00 Room Air 03/02/17 04:00 97.8 81 20 128/67 (87) 97 03/02/17 00:18 94 03/02/17 00:00 Room Air 03/02/17 00:00 97.3 92 20 121/57 (78) 95 03/01/17 20:00 98 03/01/17 20:00 Room Air 03/01/17 20:00 97.7 63 18 120/58 (78) 94 03/01/17 18:25 98 03/01/17 15:30 98.5 98 20 120/68 (85) 99 03/01/17 12:00 97.8 92 16 105/56 (72) 100 03/01/17 12:00 92 (Gely Dill) -: 02/28/17 0530 03/02/17 0735 Tubes & Lines: Vas-Cath Drip Comment None (Gely Dill) Physical Exam General Appearance: No Acute Distress, Comfortable, Malnourished Appearance Remarks Disheveled (Gely Dill) Eyes Eye Exam: Pupils Equal (Gely Dill) Throat Throat Exam: Oral Mucosa [place] & Moist (Gely Dill) Neck Neck Exam: Neck Supple (Gely Dill) Pulmonary Resp Exam: Breath Sounds Equal, No Distress, Rhonchi, Decreased Bases (Gely Dill) Cardiology CV Exam: Regular, Normal Sinus Rhythm, Good Perfusion (Gely Dill) Gastrointestinal/Abdomen GI Exam: Soft, Non-Tender, Bowel Sounds Present (Gely Dill) Genitourinary Exam: Bladder Non-Palpable (Gely Dill) Musculoskeletal MS Exam: Joints Intact, Normal Tone, Unable to Ambulate (Gely Dill) Integumentary Skin Exam: Clear, Warm, Dry, Intact (Gely Dill) Extremeties Extremities Exam: No Edema, Pedal Pulses Palpable (Gely Dill) Neurologic Neuro Exam: Awake, Moving All Extremities, Obtunded Neuro Remarks mumbles at times (Gely Dill) Assessment/Plan Discussed Condition With: Patient Assessment Summary: HERVE/Acute Renal Failure, Acute Tubular Necrosis, Diabetes Mellitus Electrolyte Assessment: Metabolic Acidosis Problem List: (1) Acute renal failure ICD Codes: N17.9 - Acute kidney failure, unspecified Status: Acute Plan: This patient has underlying renal impairment, creatinine 1.8-2 at baseline He has 1.2 g proteinuria, which 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 HERVE from ATN secondary to dehydration, sepsis, and DKA Vascath placed and HD started 02/21, last HD was 02/27 His urine output has improved, creatinine only slightly higher today Hold HD today, reevaluate need for dialysis tomorrow and Wed May be in early recovery phase D/W pt and nursing, Vascath needs to stay in for the time being, advised nursing to cover with dressing so patient will not pull on it He is off IVF Tolerating oral food, fluids, although he needs assistance with nutrition Avoid nephrotoxic agents (2) DKA (diabetic ketoacidoses) ICD Codes: E13.10 - Other specified diabetes mellitus with ketoacidosis without coma Status: Resolved Plan: A1c 10 DKA resolved, Diabetic control has been better, continue to adjust insulin with primary team. (3) Sepsis ICD Codes: A41.9 - Sepsis, unspecified organism Status: Acute Plan: Elevated lactic acid He is on Flagyl and Levaquin 1/2 blood cultures with staph hominis, likely contaminant HIDA scan taken, unable to visualize GB, acute vs chronic merissa, repeat HIDA ordered (4) Elevated troponin ICD Codes: R74.8 - Abnormal levels of other serum enzymes Plan: cardiology has evaluated suspect demand ischemia as etiology of elevated troponin levels 2D echo shows EF 25% (5) Dehydration with hypernatremia ICD Codes: E87.0 - Hyperosmolality and hypernatremia Status: Resolved Plan: Corrected, monitor for recurrence Plan He is not ready for discharge at this time. (Gely DillP) Problem List: (1) Acute renal failure ICD Codes: N17.9 - Acute kidney failure, unspecified Status: Acute Plan: This patient has underlying renal impairment, creatinine 1.8-2 at baseline He has 1.2 g proteinuria, which 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 HERVE from ATN secondary to dehydration, sepsis, and DKA Vascath placed and HD started 02/21, last HD was 02/27 His urine output has improved, creatinine only slightly higher today Hold HD today, reevaluate need for dialysis tomorrow and Wed May be in early recovery phase D/W pt and nursing, Homacatjessica needs to stay in for the time being, advised nursing to cover with dressing so patient will not pull on it He is off IVF Tolerating oral food, fluids, although he needs assistance with nutrition Avoid nephrotoxic agents (2) DKA (diabetic ketoacidoses) ICD Codes: E13.10 - Other specified diabetes mellitus with ketoacidosis without coma Status: Resolved Plan: A1c 10 DKA resolved, Diabetic control has been better, continue to adjust insulin with primary team. (3) Sepsis ICD Codes: A41.9 - Sepsis, unspecified organism Status: Acute Plan: Elevated lactic acid He is on Flagyl and Levaquin 1/2 blood cultures with staph hominis, likely contaminant HIDA scan taken, unable to visualize GB, acute vs chronic merissa, repeat HIDA ordered (4) Elevated troponin ICD Codes: R74.8 - Abnormal levels of other serum enzymes Plan: cardiology has evaluated suspect demand ischemia as etiology of elevated troponin levels 2D echo shows EF 25% (5) Dehydration with hypernatremia ICD Codes: E87.0 - Hyperosmolality and hypernatremia Status: Resolved Plan: Corrected, monitor for recurrence Plan patient was seen and examined. Agree with above assessment and plan. His urine output has improved. We are holding dialysis today. Not ready for discharge yet as we do not know if he is going to need continued dialysis. (Mc Quintanilla MD) Problem Qualifiers (1) Acute renal failure: Qualified Codes: N17.9 - Acute kidney failure, unspecified (2) DKA (diabetic ketoacidoses): (3) Sepsis: Qualified Codes: A41.9 - Sepsis, unspecified organism Gely Dill Mar 02, 2017 10:41 Mc Quintanilla MD Mar 02, 2017 11:35
[2017-03-02 10:43] LABS: INTERNATIONAL NORMALIZED RATIO 1.4 RATIO; PROTHROMBIN TIME - PATIENT 15.6 SEC (9.8-11.6)
--- NOTE | 2017-03-02 11:02 | HHI.IDPN ---
Subjective Subjective Remarks Patient is a 77-year-old male, admitted to the hospital, after he was found down in his apartment. He was apparently last seen about 3 days prior to admission, and he was in his usual self. EMS was called, and patient had very high blood sugar, looked clinically dehydrated, and was tachypneic. His laboratory data showed acute renal failure with a creatinine of 5.3. His WBC was normal, hemoglobin 10.6, and platelet count was 97. Prior creatinine level was between 1.8-2. His AST and ALT are also elevated. CT of the head was negative. Chest x-ray was normal. Renal ultrasound did not show any evidence of hydronephrosis. Urinalysis was unremarkable. His lactic acid was elevated. Patient was started on broad-spectrum antibiotics. His urine output remains low, and the patient started on hemodialysis. Patient has received fluid resuscitation with minimal improvement in his creatinine. 1 out of the 2 blood cultures is now reported as coag-negative staph. Patient also since admission has developed progressive worsening of his thrombocytopenia. He had been on Zosyn, and he received one dose of vancomycin today. Patient also had an ultrasound of the liver which showed evidence of gallstones, and gallbladder wall thickening, but no evidence of pericholecystic fluid. Patient is afebrile. His blood pressure is okay. He is on nasal O2. Infectious disease consultation has been requested to evaluate the patient with positive blood culture. Notes reviewed Temps ok No abdominal pain Mental status better Had HD 02/27 HIDA c/w chronic cholecystitis Creatinine elevated WBC normal No new (+) BC Antibiotics Levaquin Flagyl I attest that I obtained, updated or reviewed the home and current medications. Current Medications Medications (Trade) Dose Ordered Sig/Fede Route Start Time Stop Time Status Last Admin (Sodium Bicarbonate 8.4% Inj) 100 meq UNSCH PRN IV PUSH 02/19/17 13:45 (Sodium Bicarbonate 8.4% Inj) 50 meq UNSCH PRN IV PUSH 02/19/17 13:45 Sodium Phosphate 15 mmol/Sodium Chloride 105 ml @ 25 mls/hr UNSCH PRN IV 02/19/17 13:45 (NS Flush) 2 ml UNSCH PRN IV FLUSH 02/19/17 14:15 (NS Flush) 2 ml BID IV FLUSH 02/19/17 21:00 03/02/17 09:21 (Heparin Inj) 5,000 units Q12H SQ 02/19/17 17:00 Future Hold 02/21/17 16:36 Miscellaneous Information 1 Q361D XX 02/19/17 14:15 (Chlorhexidine 2% Cloth) Taper DAILY@04 TOP 02/20/17 04:00 02/16/18 03:59 02/25/17 02:34 (Chlorhexidine 2% Cloth) 3 pack UNSCH PRN TOP 02/19/17 14:15 (Princess-Colace) 1 tab BID PO 02/19/17 21:00 03/02/17 09:21 (Milk Of Magnesia Liq) 30 ml Q12H PRN PO 02/19/17 14:15 (Senokot) 17.2 mg Q12H PRN PO 02/19/17 14:15 (Dulcolax Supp) 10 mg DAILY PRN RECTAL 02/19/17 14:15 (Lactulose Liq) 30 ml DAILY PRN PO 02/19/17 14:15 (Lopressor) 25 mg Q8HR PO 02/19/17 16:30 03/02/17 06:40 (Melatonin) 5 mg HS PRN PO 02/19/17 22:15 03/01/17 22:58 (Ativan Inj) 1 mg Q6H PRN IV PUSH 02/21/17 08:00 Sodium Chloride 1,000 ml @ 0 mls/hr Q0M PRN OTHER 02/21/17 10:55 (Heparin Inj) 8,000 units UNSCH PRN IV FLUSH 02/21/17 11:00 Sodium Chloride 1,000 ml @ 200 mls/hr Q5H PRN IV 02/21/17 10:55 02/21/17 14:48 Sodium Chloride 1,000 ml @ 0 mls/hr Q0M PRN OTHER 02/21/17 10:55 (Mannitol Inj) 12.5 gm UNSCH PRN IV 02/21/17 11:00 02/21/17 14:48 Albumin Human 100 ml @ 60 mls/hr UNSCH PRN IV 02/21/17 11:00 02/25/17 13:37 (NS Flush) 5 ml UNSCH PRN IV FLUSH 02/21/17 11:00 (Heparin Inj) UNSCH PRN .XX 02/21/17 11:00 02/25/17 13:37 (Gentamicin (Dialysis) Inj) 20 mg UNSCH PRN OTHER 02/21/17 11:00 02/25/17 13:38 (Zofran Inj) 4 mg UNSCH PRN IV PUSH 02/21/17 11:00 (Tylenol) 650 mg UNSCH PRN PO 02/21/17 11:00 03/01/17 02:27 (Benadryl) 25 mg UNSCH PRN PO 02/21/17 11:00 (Nitrostat Sl) 0.4 mg UNSCH PRN SL 02/21/17 11:00 (Catapres) 0.1 mg UNSCH PRN PO 02/21/17 11:00 (Gelfoam 12 Mm/7 Mm Top) 1 foam UNSCH PRN TOP 02/21/17 11:00 (Duoneb Neb) 1 ampule Q2HR NEB PRN INH 02/22/17 14:00 02/27/17 13:18 (D50w (Vial) Inj) 50 ml UNSCH PRN IV PUSH 02/24/17 08:30 (Glucagon Inj) 1 mg UNSCH PRN OTHER 02/24/17 08:30 (Lactinex) 1 tab TID PO 02/25/17 13:00 03/02/17 09:21 (NovoLOG SUPPLEMENTAL SCALE) 1 ACHS SLIDING SCALE SQ 02/27/17 12:00 03/01/17 22:59 (Levemir Inj) 8 units DAILYAC SQ 02/28/17 08:00 03/02/17 09:25 (Levemir Inj) 8 units HS SQ 02/27/17 21:00 03/01/17 22:58 (Levaquin) 250 mg DAILY PO 02/27/17 11:00 03/05/17 10:59 03/02/17 09:21 (Flagyl) 500 mg Q8HR PO 02/27/17 14:00 03/05/17 12:00 03/02/17 06:40 (Brethine Inj) 1 mg UNSCH PRN SQ 02/27/17 13:30 (Ecotrin Ec) 81 mg DAILY PO 02/28/17 09:00 03/02/17 09:21 (Flu (Quadrivalent) Vaccine Inj) 0.5 ml ONCE ONCE IM 03/03/17 10:00 03/03/17 10:01 Lines LSC TLC SHANI segura Past Medical History Type 2 diabetes Hypertension Dyslipidemia Possible developmental delay Past Surgical History Cataract extraction Dental extraction Appendectomy Allergies: Coded Allergies: No Known Allergies (Verified , 02/19/17) Objective . Vital Signs Date Time Temp Pulse Resp B/P (MAP) Pulse Ox O2 Delivery O2 Flow Rate FiO2 03/02/17 04:00 Room Air 03/02/17 04:00 97.8 81 20 128/67 (87) 97 03/02/17 00:18 94 03/02/17 00:00 Room Air 03/02/17 00:00 97.3 92 20 121/57 (78) 95 03/01/17 20:00 98 03/01/17 20:00 Room Air 03/01/17 20:00 97.7 63 18 120/58 (78) 94 03/01/17 18:25 98 03/01/17 15:30 98.5 98 20 120/68 (85) 99 03/01/17 12:00 97.8 92 16 105/56 (72) 100 03/01/17 12:00 92 . Laboratory Tests Test 03/02/17 07:35 Blood Urea Nitrogen 59 MG/DL Creatinine 4.15 MG/DL Random Glucose 93 MG/DL Albumin 2.4 GM/DL Calcium Level 8.1 MG/DL Phosphorus Level 4.3 MG/DL Sodium Level 138 MEQ/L Potassium Level 4.0 MEQ/L Chloride Level 104 MEQ/L Carbon Dioxide Level 22.5 MEQ/L Anion Gap 12 MEQ/L Estimat Glomerular Filtration Rate 17 ML/MIN Triglycerides Level 72 MG/DL Cholesterol Level 89 MG/DL LDL Cholesterol 46 MG/DL HDL Cholesterol 28.3 MG/DL Cholesterol/HDL Ratio 3.14 RATIO Imaging Last Impressions Hepatobiliary Scan Nuclear Medicine 02/24/17 0000 Signed Impressions: Service Date/Time: Friday, February 24, 2017 12:33 - CONCLUSION: 1. Lack of visualization of the gallbladder. We will have the patient return for delayed imaging. At this point acute cholecystitis versus chronic cholecystitis. Dontrell Mcqueen Jr., MD Chest X-Ray 02/21/17 0600 Signed Impressions: Service Date/Time: Tuesday, February 21, 2017 04:36 - CONCLUSION: Bibasilar areas of suspected consolidation/atelectasis and effusion being worse on the right. The findings have worsened since the prior exam. Flakito Chan MD Liver Ultrasound 02/20/17 0000 Signed Impressions: Service Date/Time: Monday, February 20, 2017 10:51 - CONCLUSION: Gallstones and gallbladder wall thickening. There is no intrahepatic biliary duct dilatation. Rylan Wang MD FACR Head CT 02/19/17 1205 Signed Impressions: Service Date/Time: February 13:02 - CONCLUSION: 1. Cortical atrophy. 2. No acute abnormality identified. The examination is stable compared to prior dated 04/17/12. Sharath Wang MD Renal Ultrasound 02/19/17 0000 Signed Impressions: Service Date/Time: February 17:19 - CONCLUSION: No evidence of hydronephrosis. Indwelling Scott catheter with collapsed bladder in thickened bladder wall. Cal Tomlinson MD Physical Exam GENERAL: awake and alert, not in respiratory distress. Following all commands SKIN: Cool and moist. No generalized rash HEAD: Atraumatic. Normocephalic. No temporal wasting, or tenderness. EYES: [place] conjunctiva. No petechia or hemorrhage. Extraocular movements full and intact. No scleral icterus. No injection or drainage. EARS, NOSE AND THROAT: Nose without bleeding or purulent nasal discharge. Did not cooperate and Im unable to examine his oropharynx NECK: Trachea midline. Supple and not tender, no meningeal signs CARDIOVASCULAR: Regular rate and rhythm. No murmurs, rubs or gallops heard RESPIRATORY: Clear to auscultation, but decreased at the bases. Breath sounds equal bilaterally. No rales, wheezing or rhonchi ABDOMEN: Soft, nondistended, bowel sounds present and normoactive. Not tender , no guarding. No rebound. No organomegaly. EXTREMITIES: No clubbing, cyanosis, or edema.No joint effusion, has good ROM. No calf tenderness. Well perfused and warm. NEUROLOGICAL: Awake and alert. 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 Moves both LE. No Babinski PSYCHIATRIC: calm and cooperative. LINE: No evidence of infection Assessment & Plan Remarks IMPRESSION One (+) BC with Coag Neg Staph C/W contaminant Possible sepsis on admission, source? - better - CXR clear, UA ok - ?biliary tree, has elevated LFT, R side tenderness, GB wall thickening and gallstones - chronic merissa on HIDA scan Acute renal failure, on CKD Baseline ?mental delay - he is following all commands, knows his age, knows he is at [facility] Thrombocytopenia, better - ?Abx - DIC screen (+) Bilateral infiltrates likely fluid overload RECOMMENDATION Continue Levaquin and Flagyl - change to po - give until 03/05 Monitor progress Clinically doing well from ID standpoint Sugar Topete MD Mar 02, 2017 11:02
--- NOTE | 2017-03-02 12:50 | HHI.PR ---
Subjective Remarks F/U encephalopathy. Just returned from HD. Less interactive today. PO intake poor dw RN Objective Vitals Vital Signs Date Time Temp Pulse Resp B/P (MAP) Pulse Ox O2 Delivery O2 Flow Rate FiO2 03/02/17 08:00 Room Air 03/02/17 04:00 Room Air 03/02/17 04:00 97.8 81 20 128/67 (87) 97 03/02/17 00:18 94 03/02/17 00:00 Room Air 03/02/17 00:00 97.3 92 20 121/57 (78) 95 03/01/17 20:00 98 03/01/17 20:00 Room Air 03/01/17 20:00 97.7 63 18 120/58 (78) 94 03/01/17 18:25 98 03/01/17 15:30 98.5 98 20 120/68 (85) 99 I/O 03/01/17 03/01/17 03/01/17 03/02/17 03/02/17 03/02/17 07:00 15:00 23:00 07:00 15:00 23:00 Intake Total 100 ml 660 ml 0 ml 610 ml Output Total 300 ml 550 ml Balance 100 ml 360 ml 0 ml 60 ml Intake Oral 100 ml 660 ml 610 ml IV Total 0 ml Output Urine Total 300 ml 550 ml # Voids 2 # Bowel Movements 1 1 3 Result Diagram: 02/28/17 0530 03/02/17 0735 Objective Remarks GENERAL: WD WN on RA SKIN: Warm and dry. HEAD: Atraumatic. Normocephalic. EYES: Pupils equal and round. No scleral icterus. No injection or drainage. ENT: No nasal bleeding or discharge. Mucous membranes pink and moist. NECK: Trachea midline. No JVD. CARDIOVASCULAR: Regular rate and rhythm. Systolic murmur noted RESPIRATORY: No accessory muscle use. Decreased Breath sounds equal bilaterally. GASTROINTESTINAL: Abdomen soft, non-tender, nondistended. MUSCULOSKELETAL: Extremities without clubbing, cyanosis, or edema. No obvious deformities. NEUROLOGICAL: Awake and alert. No obvious cranial nerve deficits. Motor grossly within normal limits. Procedures Vascath A/P Problem List: (1) Acute metabolic encephalopathy ICD Code: G93.41 - Metabolic encephalopathy (2) Altered mental status ICD Code: R41.82 - Altered mental status, unspecified Status: Acute (3) DKA (diabetic ketoacidoses) ICD Code: E13.10 - Other specified diabetes mellitus with ketoacidosis without coma Status: Resolved (4) Non-STEMI (non-ST elevated myocardial infarction) ICD Code: I21.4 - Non-ST elevation (NSTEMI) myocardial infarction Status: Acute (5) Dehydration with hypernatremia ICD Code: E87.0 - Hyperosmolality and hypernatremia Status: Resolved (6) Sepsis ICD Code: A41.9 - Sepsis, unspecified organism Status: Acute (7) UTI (urinary tract infection) ICD Code: N39.0 - Urinary tract infection, site not specified Status: Acute (8) Acute renal failure ICD Code: N17.9 - Acute kidney failure, unspecified Status: Acute (9) Hyperglycemia ICD Code: R73.9 - Hyperglycemia, unspecified Status: Acute (10) Lactic acidemia ICD Code: E87.2 - Acidosis (11) Transaminitis ICD Code: R74.0 - Nonspecific elevation of levels of transaminase and lactic acid dehydrogenase [LDH] (12) Respiratory insufficiency ICD Code: R06.89 - Other abnormalities of breathing Assessment and Plan Acute encephalopathy, multifactorial. Recent episode likely secondary to metabolic derangement during hemodialysis. Evaluated by neurology recommended aspirin. Today he is less interactive s/p HD. Neuro checks -repeated CT with no acute abnormality. -Treat agitation with when necessary Haldol -EEG without seizure activity. Carotid sonogram showed left carotid occlusion and 50% stenosis on the right carotid. Patient on aspirin. Patient on statin currently on hold because of transaminitis. Telemetry shows nonsustained V. tach but was asymptomatic during the episode. Pending Holter monitor Continue to monitor. -Sleep study outpatient Respiratory insufficiency - keep on oxygen as needed to keep O2 sat >90% - continue neb treatment. elevated troponin Hypertension cardiomyopathy - echo with EF 25% - Aspirin - Metoprolol 25 mg every 8 hours. Unable to start MILDRED inhibitor secondary to acute kidney injury - Avoid statins due to transaminitis - evaluated by cardiology. Transaminitis chronic cholecystitis - Monitor liver enzymes Acute kidney injury superimposed on chronic kidney disease Severe dehydration - Baseline creatinine 1.8 to 2. Acute worsening secondary to severe dehydration , ATN and DKA - Monitor renal function closely. - HD being put on hold for the moment per nephrology. Probable sepsis UTI -- one bottle of the blood cultures with staph coag. negative-likely contamination. -ID consult appreciated and started on Levaquin and Flagyl until March 05. diarrhea- stool negative for c-diff. Anemia thrombocytopenia from Sepsis/DIC -heparin on hold. -hematology following. -Monitor CBC. DKA-resolved but hyperglycemic hypoglycemic episodes- this has resolved. -continue sliding scale coverage. -adjust levemir, A1c 10 -continue to monitor for hypoglycemia FEN. Calorie ct. Prn IVF monigor for overload PROPH: - Bilateral lower extremity SCDs. hold Heparin as noted above. Discharge Planning Not stable for dc. Renal wants to observe pt off HD Problem Qualifiers (1) Altered mental status: Qualified Codes: R41.82 - Altered mental status, unspecified (2) DKA (diabetic ketoacidoses): (3) Sepsis: Qualified Codes: A41.9 - Sepsis, unspecified organism (4) UTI (urinary tract infection): (5) Acute renal failure: Qualified Codes: N17.9 - Acute kidney failure, unspecified Isrrael Tamayo MD Mar 02, 2017 12:50
[2017-03-02 14:06] LABS: BASOPHIL % 0.6 % (0.0-2.0); EOSINOPHIL # 0.1 TH/MM3 (0-0.4); EOSINOPHIL % 0.6 % (0.0-4.0); HEMATOCRIT 28.7 % (39.0-51.0); HEMOGLOBIN 9.3 GM/DL (13.0-17.0); LYMPH % 13.1 % (9.0-44.0); LYMPHOCYTE # 1.1 TH/MM3 (1.0-4.8); MEAN CELL VOLUME 91.4 FL (80.0-100.0); MEAN CORPUSCULAR HEMOGLOBIN 29.6 PG (27.0-34.0); MEAN CORPUSCULAR HGB CONC 32.4 % (32.0-36.0); MEAN PLATELET VOLUME 9.5 FL (7.0-11.0); MONO % 12.4 % (0.0-8.0); NEUT % 73.3 % (16.0-70.0); PLATELET COUNT 140 TH/MM3 (150-450); RED BLOOD COUNT 3.14 MIL/MM3 (4.50-5.90); RED CELL DISTRIBUTION WIDTH 16.9 % (11.6-17.2); WHITE BLOOD COUNT 8.2 TH/MM3 (4.0-11.0)
[2017-03-02] MEDS: SODIUM CHLOR 0.9% 1000 ML INJ 1,000 ML IV PRN ×2 (15:28)
[2017-03-02] MEDS: diphenhydrAMINE HCL 25 MG CAP PO PRN ×2 (23:22)
[2017-03-03] VITALS (11 sets, daily range): BP systolic 97–127; BP diastolic 54–67; PULSE 70–90; RESP 18–20; TEMP 97.4–98.5; O2SAT 95–100
[2017-03-03] MEDS: CHLORHEXIDINE GLUCONATE 2 % 1 PACK (2 CLOTHS) TOP SCH ×2 (04:00)
[2017-03-03] MEDS: METOPROLOL TARTRATE 25 MG TAB PO SCH ×6 (05:30→20:43)
[2017-03-03] MEDS: metroNIDAZOLE 500 MG TAB PO SCH ×6 (05:30→20:43)
[2017-03-03] MEDS: INSULIN ASPART SUPPLEMENTAL SCALE SQ SCH ×8 (08:00→20:46)
[2017-03-03 08:36] LABS: ALBUMIN 2.4 GM/DL (3.4-5.0); BICARBONATE 22.7 MEQ/L (21.0-32.0); CALCIUM 8.1 MG/DL (8.5-10.1); CREATININE 4.6 MG/DL (0.60-1.30); PHOSPHORUS 4.8 MG/DL (2.5-4.9)
[2017-03-03] MEDS ORDERED: INFLUENZA VIRUS VACCINE (QUADRIVALENT) 0.5 ML SYR IM ONE ×2 (10:00)
--- NOTE | 2017-03-03 10:09 | HHI.NPPN ---
Subjective General Problems: Mebatolic Acidosis Renal Failure: Chronic, Acute Interval History Urine output has improved. He is sleepy today, somewhat confused. Reportedly hypoxic overnight. Daughter is at bedside. (Gely Dill) Review of Systems General Constitutional: Fatigue (Gely Dill) Objective Data Data Vital Signs Date Time Temp Pulse Resp B/P (MAP) Pulse Ox O2 Delivery O2 Flow Rate FiO2 03/03/17 04:00 98.2 83 20 118/54 (75) 99 03/03/17 00:00 97.8 79 18 116/57 (76) 100 03/02/17 22:38 99.0 77 18 107/57 (74) 98 03/02/17 20:21 77 03/02/17 16:05 99.0 76 20 95/56 (69) 100 03/02/17 14:00 Nasal Cannula 3.00 03/02/17 12:00 98.5 70 20 95/51 (66) 100 (Gely Dlil) -: 03/02/17 1352 03/03/17 0730 Tubes & Lines: Vas-Cath Drip Comment None (Gely Dill) Physical Exam General Appearance: No Acute Distress, Comfortable, Sleeping, Malnourished Appearance Remarks Disheveled (Gely Dill) Eyes Eye Exam: Pupils Equal (Gely Dill) Throat Throat Exam: Oral Mucosa [place] & Moist (Gely Dill) Neck Neck Exam: Neck Supple (Gely Dill) Pulmonary Resp Exam: Breath Sounds Equal, No Distress, Rhonchi, Decreased Bases (Gely Dill) Cardiology CV Exam: Regular, Normal Sinus Rhythm, Good Perfusion (Gely Dill) Gastrointestinal/Abdomen GI Exam: Soft, Non-Tender, Bowel Sounds Present (Gely Dill) Genitourinary Exam: Bladder Non-Palpable (Gely Dill) Musculoskeletal MS Exam: Joints Intact, Normal Tone, Unable to Ambulate (Gely Dill) Integumentary Skin Exam: Clear, Warm, Dry, Intact (Gely Dill) Extremeties Extremities Exam: No Edema, Pedal Pulses Palpable (Gely Dill) Neurologic Neuro Exam: Awake, Moving All Extremities, Obtunded Neuro Remarks mumbles at times (Gely Dill) Assessment/Plan Discussed Condition With: Patient Assessment Summary: HERVE/Acute Renal Failure, Acute Tubular Necrosis, Diabetes Mellitus Electrolyte Assessment: Metabolic Acidosis Problem List: (1) Acute renal failure ICD Codes: N17.9 - Acute kidney failure, unspecified Status: Acute Plan: This patient has underlying renal impairment, creatinine 1.8-2 at baseline He has 1.2 g proteinuria, which 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 HERVE from ATN secondary to dehydration, sepsis, and DKA Vascath placed and HD started 02/21 Dialysis held yesterday, urine output has improved He is however more confused, may be due to uremia We will dialyze today without fluid removal Repeat labs in AM He is in recovery phase, plan is not to convert to outpatient dialysis at this time, not ready for discharge Keep vascath in for the time being, secure if needed to prevent dislodgement Tolerating oral food, fluids, although he needs assistance with nutrition Avoid nephrotoxic agents (2) DKA (diabetic ketoacidoses) ICD Codes: E13.10 - Other specified diabetes mellitus with ketoacidosis without coma Status: Resolved Plan: A1c 10 DKA resolved, Diabetic control has been better, continue to adjust insulin with primary team. (3) Sepsis ICD Codes: A41.9 - Sepsis, unspecified organism Status: Acute Plan: Resolving He is on Flagyl and Levaquin 1/2 blood cultures with staph hominis, likely contaminant HIDA scan taken, unable to visualize GB, results showing chronic cholecystitis (4) Elevated troponin ICD Codes: R74.8 - Abnormal levels of other serum enzymes Plan: cardiology has evaluated suspect demand ischemia as etiology of elevated troponin levels 2D echo shows EF 25% (5) Dehydration with hypernatremia ICD Codes: E87.0 - Hyperosmolality and hypernatremia Status: Resolved Plan: Corrected, monitor for recurrence Plan (Gely Dill) Plan patient was seen and examined. Excellent urine output but creatinine was higher , dialysis was planned, but the daughter refused dialysis. Patient's diagnosis is acute on chronic kidney disease with a chance for recovery. We are not planning [facility] outpatient dialysis at this time. (Mc Quintanilla MD) Problem Qualifiers (1) Acute renal failure: Qualified Codes: N17.9 - Acute kidney failure, unspecified (2) DKA (diabetic ketoacidoses): (3) Sepsis: Qualified Codes: A41.9 - Sepsis, unspecified organism Gely Dill Mar 03, 2017 10:09 Mc Quintanilla MD Mar 03, 2017 20:37
--- NOTE | 2017-03-03 10:19 | PD.ONC.PN ---
Subjective Subjective Remarks Afebrile overnight. patient resting in bed in nad. No complaints. significant other at bedside. Objective Data Date Time Temp Pulse Resp B/P (MAP) Pulse Ox O2 Delivery O2 Flow Rate FiO2 03/03/17 04:00 98.2 83 20 118/54 (75) 99 03/03/17 00:00 97.8 79 18 116/57 (76) 100 03/02/17 22:38 99.0 77 18 107/57 (74) 98 03/02/17 20:21 77 03/02/17 16:05 99.0 76 20 95/56 (69) 100 03/02/17 14:00 Nasal Cannula 3.00 03/02/17 12:00 98.5 70 20 95/51 (66) 100 03/03/17 03/03/17 03/03/17 07:00 15:00 23:00 Intake Total 688 ml Output Total 400 ml Balance 288 ml Result Diagram: 03/02/17 1352 03/03/17 0730 Laboratory Results Laboratory Tests Test 03/02/17 13:52 03/03/17 07:30 White Blood Count 8.2 TH/MM3 Red Blood Count 3.14 MIL/MM3 Hemoglobin 9.3 GM/DL Hematocrit 28.7 % Mean Corpuscular Volume 91.4 FL Mean Corpuscular Hemoglobin 29.6 PG Mean Corpuscular Hemoglobin Concent 32.4 % Red Cell Distribution Width 16.9 % Platelet Count 140 TH/MM3 Mean Platelet Volume 9.5 FL Neutrophils (%) (Auto) 73.3 % Lymphocytes (%) (Auto) 13.1 % Monocytes (%) (Auto) 12.4 % Eosinophils (%) (Auto) 0.6 % Basophils (%) (Auto) 0.6 % Neutrophils # (Auto) 6.0 TH/MM3 Lymphocytes # (Auto) 1.1 TH/MM3 Monocytes # (Auto) 1.0 TH/MM3 Eosinophils # (Auto) 0.1 TH/MM3 Basophils # (Auto) 0.0 TH/MM3 CBC Comment DIFF FINAL Differential Comment Blood Urea Nitrogen 67 MG/DL Creatinine 4.60 MG/DL Random Glucose 130 MG/DL Albumin 2.4 GM/DL Calcium Level 8.1 MG/DL Phosphorus Level 4.8 MG/DL Sodium Level 139 MEQ/L Potassium Level 4.0 MEQ/L Chloride Level 105 MEQ/L Carbon Dioxide Level 22.7 MEQ/L Anion Gap 11 MEQ/L Estimat Glomerular Filtration Rate 15 ML/MIN Administered Medications Medications (Trade) Dose Ordered Sig/Fede Route PRN Reason Start Time Stop Time Status Last Admin Dose Admin Sodium Chloride (NS Flush) 2 ml BID IV FLUSH 02/19/17 21:00 03/02/17 09:21 Heparin Sodium (Porcine) (Heparin Inj) 5,000 units Q12H SQ 02/19/17 17:00 Future Hold 02/21/17 16:36 Chlorhexidine Gluconate (Chlorhexidine 2% Cloth) Taper DAILY@04 TOP 02/20/17 04:00 02/16/18 03:59 02/25/17 02:34 Senna/Docusate Sodium (Princess-Colace) 1 tab BID PO 02/19/17 21:00 03/02/17 20:23 Metoprolol Tartrate (Lopressor) 25 mg Q8HR PO 02/19/17 16:30 03/03/17 05:30 Melatonin (Melatonin) 5 mg HS PRN PO SLEEP 02/19/17 22:15 03/01/17 22:58 Sodium Chloride 1,000 ml @ 200 mls/hr Q5H PRN IV WITH DIALYSIS 02/21/17 10:55 02/21/17 14:48 Mannitol (Mannitol Inj) 12.5 gm UNSCH PRN IV WITH DIALYSIS 02/21/17 11:00 02/21/17 14:48 Albumin Human 100 ml @ 60 mls/hr UNSCH PRN IV WITH DIALYSIS 02/21/17 11:00 02/25/17 13:37 Heparin Sodium (Porcine) (Heparin Inj) UNSCH PRN .XX WITH DIALYSIS 02/21/17 11:00 02/25/17 13:37 Gentamicin Sulfate (Gentamicin (Dialysis) Inj) 20 mg UNSCH PRN OTHER WITH DIALYSIS 02/21/17 11:00 02/25/17 13:38 Acetaminophen (Tylenol) 650 mg UNSCH PRN PO for headach, pain, temp > 101F 02/21/17 11:00 03/01/17 02:27 Diphenhydramine HCl (Benadryl) 25 mg UNSCH PRN PO for hives/itching/anaphylaxis 02/21/17 11:00 03/02/17 23:22 Albuterol/ Ipratropium (Duoneb Neb) 1 ampule Q2HR NEB PRN INH WHEEZING 02/22/17 14:00 02/27/17 13:18 Lactobacillus Acidophilus (Lactinex) 1 tab TID PO 02/25/17 13:00 03/02/17 12:47 Insulin Aspart (NovoLOG SUPPLEMENTAL SCALE) 1 ACHS SLIDING SCALE SQ 02/27/17 12:00 03/01/17 22:59 Insulin Detemir (Levemir Inj) 8 units DAILYAC SQ 02/28/17 08:00 03/02/17 09:25 Insulin Detemir (Levemir Inj) 8 units HS SQ 02/27/17 21:00 03/02/17 20:26 Metronidazole (Flagyl) 500 mg Q8HR PO 02/27/17 14:00 03/05/17 12:00 03/03/17 05:30 Aspirin (Ecotrin Ec) 81 mg DAILY PO 02/28/17 09:00 03/02/17 09:21 Sodium Chloride 1,000 ml @ 30 mls/hr Q24H PRN IV if po < 50% for one liter 03/02/17 13:15 03/02/17 15:28 Objective Remarks GENERAL: chronically ill male supine in bed. SKIN: Warm and dry. HEAD: Normocephalic. EYES: No injection or drainage. NECK: Supple, trachea midline. CARDIOVASCULAR: +S1/S2 RESPIRATORY: anterior amador clear. GASTROINTESTINAL: Abdomen soft, non-tender, nondistended. EXTREMITIES: No cyanosis NEUROLOGICAL: awake and alert. garbled speech. Assessment/Plan Problem List: (1) thrombocytopenia Plan: 03/03: no clinical bleeding. will await CBC today. if platelets recovered , hematology will sign off. -- multifactorial due to sepsis, DIC and medications (2) acute renal failure, history of chronic kidney disease; possible ATN Plan: --on dialysis Assessment 77y/o male admited with sepsis. h/o diabetes mellitus, hypertension, hypercholesterolemia and questionable developmental delay. chronic renal failure. Attending Statement The exam, history, and the medical decision-making described in the above note were completed with the assistance of the mid-level provider. I reviewed and agree with the findings presented. I attest that I had a [id number] encounter with the patient on the same day, and personally performed and documented my assessment and findings in the medical record. No new complaints Platelets are 141. Almost normal Sepsis seems to be resolved Sign off Available Alba Lea Mar 03, 2017 10:19 Alejandra Fraire MD Mar 04, 2017 06:40
[2017-03-03] MEDS: DOCUSATE SODIUM 50 MG/SENNA 8.6 MG TAB PO SCH ×4 (10:20→20:47)
[2017-03-03] MEDS: ASPIRIN EC 81 MG TABEC PO SCH ×2 (10:20)
[2017-03-03] MEDS: LEVOFLOXACIN 250 MG TAB PO SCH ×2 (10:20)
[2017-03-03] MEDS: LACTOBACILLUS ACIDOPHILUS TAB PO SCH ×6 (10:21→17:12)
[2017-03-03] MEDS: INSULIN DETEMIR 100 UNITS/ML VIAL SQ SCH ×4 (10:21→20:47)
[2017-03-03] MEDS: SODIUM CHLORIDE 0.9% FLUSH 10 ML FLUSH IV FLUSH SCH ×4 (10:26→20:47)
[2017-03-03] MEDS: diphenhydrAMINE HCL 25 MG CAP PO PRN ×2 (10:26)
--- NOTE | 2017-03-03 11:58 | HHI.PR ---
Subjective Remarks Follow-up acute kidney injury and encephalopathy. Today he is more awake and interactive. He has no complaints. Discussed with RN and daughter. He was confused yesterday improved with nasal cannula. Currently on room air. Objective Vitals Vital Signs Date Time Temp Pulse Resp B/P (MAP) Pulse Ox O2 Delivery O2 Flow Rate FiO2 03/03/17 10:30 98.2 90 20 102/67 (79) 98 03/03/17 08:05 97.9 73 19 107/58 (74) 95 03/03/17 04:00 98.2 83 20 118/54 (75) 99 03/03/17 00:00 97.8 79 18 116/57 (76) 100 03/02/17 22:38 99.0 77 18 107/57 (74) 98 03/02/17 20:21 77 03/02/17 16:05 99.0 76 20 95/56 (69) 100 03/02/17 14:00 Nasal Cannula 3.00 03/02/17 12:00 98.5 70 20 95/51 (66) 100 I/O 03/02/17 03/02/17 03/02/17 03/03/17 03/03/17 03/03/17 07:00 15:00 23:00 07:00 15:00 23:00 Intake Total 610 ml 20 ml 688 ml Output Total 550 ml 900 ml 400 ml Balance 60 ml -880 ml 288 ml Intake Oral 610 ml 20 ml 240 ml IV Total 448 ml Output Urine Total 550 ml 900 ml 400 ml # Bowel Movements 3 0 2 Result Diagram: 03/02/17 1352 03/03/17 0730 Objective Remarks GENERAL: WD WN on RA SKIN: Warm and dry. HEAD: Atraumatic. Normocephalic. EYES: Pupils equal and round. No scleral icterus. No injection or drainage. ENT: No nasal bleeding or discharge. Mucous membranes pink and moist. NECK: Trachea midline. No JVD. CARDIOVASCULAR: Regular rate and rhythm. Systolic murmur noted RESPIRATORY: No accessory muscle use. Decreased Breath sounds equal bilaterally. GASTROINTESTINAL: Abdomen soft, non-tender, nondistended. MUSCULOSKELETAL: Extremities without clubbing, cyanosis, or edema. No obvious deformities. NEUROLOGICAL: Awake and alert. No obvious cranial nerve deficits. Motor grossly within normal limits. Following commands Procedures Vascath A/P Problem List: (1) Acute metabolic encephalopathy ICD Code: G93.41 - Metabolic encephalopathy (2) Altered mental status ICD Code: R41.82 - Altered mental status, unspecified Status: Acute (3) DKA (diabetic ketoacidoses) ICD Code: E13.10 - Other specified diabetes mellitus with ketoacidosis without coma Status: Resolved (4) Non-STEMI (non-ST elevated myocardial infarction) ICD Code: I21.4 - Non-ST elevation (NSTEMI) myocardial infarction Status: Acute (5) Dehydration with hypernatremia ICD Code: E87.0 - Hyperosmolality and hypernatremia Status: Resolved (6) Sepsis ICD Code: A41.9 - Sepsis, unspecified organism Status: Acute (7) UTI (urinary tract infection) ICD Code: N39.0 - Urinary tract infection, site not specified Status: Acute (8) Acute renal failure ICD Code: N17.9 - Acute kidney failure, unspecified Status: Acute (9) Hyperglycemia ICD Code: R73.9 - Hyperglycemia, unspecified Status: Acute (10) Lactic acidemia ICD Code: E87.2 - Acidosis (11) Transaminitis ICD Code: R74.0 - Nonspecific elevation of levels of transaminase and lactic acid dehydrogenase [LDH] (12) Respiratory insufficiency ICD Code: R06.89 - Other abnormalities of breathing Assessment and Plan Acute encephalopathy, multifactorial. Recent episode likely secondary to metabolic derangement during hemodialysis. Evaluated by neurology recommended aspirin. Today he is more awake and interactive. Neuro checks -repeated CT with no acute abnormality. -Treat agitation with when necessary Haldol -EEG without seizure activity. Carotid sonogram showed left carotid occlusion and 50% stenosis on the right carotid. Patient on aspirin. Patient on statin currently on hold because of transaminitis. Telemetry shows nonsustained V. tach but was asymptomatic during the episode. Pending Holter monitor Continue to monitor. -Sleep study outpatient Respiratory insufficiency - keep on oxygen as needed to keep O2 sat >90% - continue neb treatment. elevated troponin Hypertension cardiomyopathy - echo with EF 25% - Aspirin - Metoprolol 25 mg every 8 hours. Unable to start MILDRED inhibitor secondary to acute kidney injury - Avoid statins due to transaminitis - evaluated by cardiology. Transaminitis chronic cholecystitis - Monitor liver enzymes Acute kidney injury superimposed on chronic kidney disease Severe dehydration - Baseline creatinine 1.8 to 2. Acute worsening secondary to severe dehydration , ATN and DKA - Monitor renal function closely. - Creatinine is rising with episodes of confusion likely secondary to uremia. Nephrology to resume hemodialysis Probable sepsis UTI -- one bottle of the blood cultures with staph coag. negative-likely contamination. -ID consult appreciated and started on Levaquin and Flagyl until March 05. diarrhea- stool negative for c-diff. Anemia thrombocytopenia from Sepsis/DIC -heparin on hold. -hematology following. -Monitor CBC. DKA-resolved but hyperglycemic hypoglycemic episodes- this has resolved. -continue sliding scale coverage. -adjust levemir, A1c 10 -continue to monitor for hypoglycemia FEN. Calorie ct. Prn IVF monigor for overload PROPH: - Bilateral lower extremity SCDs. hold Heparin as noted above. Discharge Planning Not stable for dc. Renal wants to observe pt off HD Problem Qualifiers (1) Altered mental status: Qualified Codes: R41.82 - Altered mental status, unspecified (2) DKA (diabetic ketoacidoses): (3) Sepsis: Qualified Codes: A41.9 - Sepsis, unspecified organism (4) UTI (urinary tract infection): (5) Acute renal failure: Qualified Codes: N17.9 - Acute kidney failure, unspecified Isrrael Tamayo MD Mar 03, 2017 11:58
[2017-03-03] MEDS: RESP: ALBUTEROL 2.5 MG/IPRATROPIUM 0.5 MG NEB (PRN) INH ×4 (21:02→23:22)
[2017-03-03 22:56] LABS: AUTOMATED NEUTROPHIL # 3.8 TH/MM3 (1.8-7.7); BASOPHIL % 0.7 % (0.0-2.0); EOSINOPHIL # 0.1 TH/MM3 (0-0.4); HEMATOCRIT 28.9 % (39.0-51.0); HEMOGLOBIN 9.8 GM/DL (13.0-17.0); LYMPH % 14.5 % (9.0-44.0); LYMPHOCYTE # 0.8 TH/MM3 (1.0-4.8); MEAN CELL VOLUME 91.3 FL (80.0-100.0); MEAN PLATELET VOLUME 9.5 FL (7.0-11.0); MONO % 14.2 % (0.0-8.0); MONOCYTE # 0.8 TH/MM3 (0-0.9); NEUT % 69.6 % (16.0-70.0); PLATELET COUNT 141 TH/MM3 (150-450); RED BLOOD COUNT 3.16 MIL/MM3 (4.50-5.90); RED CELL DISTRIBUTION WIDTH 17.1 % (11.6-17.2); WHITE BLOOD COUNT 5.5 TH/MM3 (4.0-11.0)
[2017-03-04] VITALS (10 sets, daily range): BP systolic 99–117; BP diastolic 57–69; PULSE 72–93; RESP 18–24; TEMP 97–98.8; O2SAT 93–100
[2017-03-04] MEDS: RESP: ALBUTEROL 2.5 MG/IPRATROPIUM 0.5 MG NEB (PRN) INH ×8 (02:32→21:45)
[2017-03-04] MEDS: CHLORHEXIDINE GLUCONATE 2 % 1 PACK (2 CLOTHS) TOP SCH ×2 (03:17)
[2017-03-04] MEDS: METOPROLOL TARTRATE 25 MG TAB PO SCH ×6 (06:00→22:06)
[2017-03-04] MEDS: metroNIDAZOLE 500 MG TAB PO SCH ×6 (06:27→22:06)
--- NOTE | 2017-03-04 07:00 | HM ---
Date Performed: 03/01/2017 Time Performed: 14:31:00 HOOKUP DATE: 03/01/17 02:31:00 PM Sun ANALYSIS START TIME: 03/01/2017 2:36:00 PM ANALYSIS END TIME: 03/02/2017 2:07:00 PM PATIENT AGE: 77 PATIENT HEIGHT PATIENT WEIGHT DRUG LIST PATIENT DIAGNOSIS: AMS TEST NARRATIVE: The patient's average heart rate was 86 BPM. Heart rates greater than 120 B PM were noted < 1% of the time. No episodes of bradycardia were noted. No pauses exceeding 2.0 s econds were noted. 4724 ventricular ectopics, which represented 4% of the total beat count, were noted. The highest ventricular ectopic frequency occurred from 05:00 PM to 06:00 PM Sun. During thi s time 274 VE(s) occurred. Ventricular ectopics were observed as 3693 isolated beat(s), as 494 coupl et(s) and as 14 run(s). Some of the ventricular beats occurred in bigeminal cycles. No supravent ricular ectopics were noted. No episodes of ST depression (defined as -1.0 mm or more) were noted in channel 1. No episodes of ST depression (defined as -1.0 mm or more) were noted in channel 2. N o episodes of ST depression (defined as -1.0 mm or more) were noted in channel 3. no diary given...AM S... TEST INTERPRETATION: The patient was monitored for 23 hours and 31 minutes. The patient was in n ormal Sinus rhythm wtih an average heart rate of 86 beats per minute. There were periods of sinus tachycardia up to 124 beats per minute at 9:10pm. There were 3,693 PVCs, 51 cycles of ventricular bigeminy, 419 ventricul ar couplets and 14 runs of wide complex tachycardia, the longest being 3 beats with a maximum heart r ate of 145 beats per minute. The 3 beat runs of wide complex tachycardia are polymorphic. There are n o PACs. Signed by : Ga dorman
[2017-03-04] MEDS: INSULIN ASPART SUPPLEMENTAL SCALE SQ SCH ×8 (08:00→21:00)
[2017-03-04] MEDS: INSULIN DETEMIR 100 UNITS/ML VIAL SQ SCH ×6 (08:00→21:00)
[2017-03-04] MEDS: LACTOBACILLUS ACIDOPHILUS TAB PO SCH ×6 (08:51→18:00)
[2017-03-04] MEDS: diphenhydrAMINE HCL 25 MG CAP PO PRN ×4 (08:51→20:47)
[2017-03-04] MEDS: ASPIRIN EC 81 MG TABEC PO SCH ×2 (08:51)
[2017-03-04] MEDS: SODIUM CHLORIDE 0.9% FLUSH 10 ML FLUSH IV FLUSH SCH ×4 (08:52→22:08)
[2017-03-04] MEDS: DOCUSATE SODIUM 50 MG/SENNA 8.6 MG TAB PO SCH ×4 (09:00→21:00)
--- NOTE | 2017-03-04 09:43 | HHI.IDPN ---
Subjective Subjective Remarks Patient is a 77-year-old male, admitted to the hospital, after he was found down in his apartment. He was apparently last seen about 3 days prior to admission, and he was in his usual self. EMS was called, and patient had very high blood sugar, looked clinically dehydrated, and was tachypneic. His laboratory data showed acute renal failure with a creatinine of 5.3. His WBC was normal, hemoglobin 10.6, and platelet count was 97. Prior creatinine level was between 1.8-2. His AST and ALT are also elevated. CT of the head was negative. Chest x-ray was normal. Renal ultrasound did not show any evidence of hydronephrosis. Urinalysis was unremarkable. His lactic acid was elevated. Patient was started on broad-spectrum antibiotics. His urine output remains low, and the patient started on hemodialysis. Patient has received fluid resuscitation with minimal improvement in his creatinine. 1 out of the 2 blood cultures is now reported as coag-negative staph. Patient also since admission has developed progressive worsening of his thrombocytopenia. He had been on Zosyn, and he received one dose of vancomycin today. Patient also had an ultrasound of the liver which showed evidence of gallstones, and gallbladder wall thickening, but no evidence of pericholecystic fluid. Patient is afebrile. His blood pressure is okay. He is on nasal O2. Infectious disease consultation has been requested to evaluate the patient with positive blood culture. Notes reviewed Temps ok Clinically stable from ID standpoint Last HD 02/27 HIDA c/w chronic cholecystitis Creatinine rising again Antibiotics Levaquin Flagyl I attest that I obtained, updated or reviewed the home and current medications. Current Medications Medications (Trade) Dose Ordered Sig/Fede Route Start Time Stop Time Status Last Admin (Sodium Bicarbonate 8.4% Inj) 100 meq UNSCH PRN IV PUSH 02/19/17 13:45 (Sodium Bicarbonate 8.4% Inj) 50 meq UNSCH PRN IV PUSH 02/19/17 13:45 Sodium Phosphate 15 mmol/Sodium Chloride 105 ml @ 25 mls/hr UNSCH PRN IV 02/19/17 13:45 (NS Flush) 2 ml UNSCH PRN IV FLUSH 02/19/17 14:15 (NS Flush) 2 ml BID IV FLUSH 02/19/17 21:00 03/04/17 08:52 (Heparin Inj) 5,000 units Q12H SQ 02/19/17 17:00 Future Hold 02/21/17 16:36 Miscellaneous Information 1 Q361D XX 02/19/17 14:15 (Chlorhexidine 2% Cloth) Taper DAILY@04 TOP 02/20/17 04:00 02/16/18 03:59 02/25/17 02:34 (Chlorhexidine 2% Cloth) 3 pack UNSCH PRN TOP 02/19/17 14:15 (Princess-Colace) 1 tab BID PO 02/19/17 21:00 03/03/17 20:47 (Milk Of Magnesia Liq) 30 ml Q12H PRN PO 02/19/17 14:15 (Senokot) 17.2 mg Q12H PRN PO 02/19/17 14:15 (Dulcolax Supp) 10 mg DAILY PRN RECTAL 02/19/17 14:15 (Lactulose Liq) 30 ml DAILY PRN PO 02/19/17 14:15 (Lopressor) 25 mg Q8HR PO 02/19/17 16:30 03/03/17 20:43 (Melatonin) 5 mg HS PRN PO 02/19/17 22:15 03/01/17 22:58 (Ativan Inj) 1 mg Q6H PRN IV PUSH 02/21/17 08:00 Sodium Chloride 1,000 ml @ 0 mls/hr Q0M PRN OTHER 02/21/17 10:55 (Heparin Inj) 8,000 units UNSCH PRN IV FLUSH 02/21/17 11:00 Sodium Chloride 1,000 ml @ 200 mls/hr Q5H PRN IV 02/21/17 10:55 02/21/17 14:48 Sodium Chloride 1,000 ml @ 0 mls/hr Q0M PRN OTHER 02/21/17 10:55 (Mannitol Inj) 12.5 gm UNSCH PRN IV 02/21/17 11:00 02/21/17 14:48 Albumin Human 100 ml @ 60 mls/hr UNSCH PRN IV 02/21/17 11:00 02/25/17 13:37 (NS Flush) 5 ml UNSCH PRN IV FLUSH 02/21/17 11:00 (Heparin Inj) UNSCH PRN .XX 02/21/17 11:00 02/25/17 13:37 (Gentamicin (Dialysis) Inj) 20 mg UNSCH PRN OTHER 02/21/17 11:00 02/25/17 13:38 (Zofran Inj) 4 mg UNSCH PRN IV PUSH 02/21/17 11:00 (Tylenol) 650 mg UNSCH PRN PO 02/21/17 11:00 03/01/17 02:27 (Benadryl) 25 mg UNSCH PRN PO 02/21/17 11:00 03/04/17 08:51 (Nitrostat Sl) 0.4 mg UNSCH PRN SL 02/21/17 11:00 (Catapres) 0.1 mg UNSCH PRN PO 02/21/17 11:00 (Gelfoam 12 Mm/7 Mm Top) 1 foam UNSCH PRN TOP 02/21/17 11:00 (Duoneb Neb) 1 ampule Q2HR NEB PRN INH 02/22/17 14:00 03/04/17 06:14 (D50w (Vial) Inj) 50 ml UNSCH PRN IV PUSH 02/24/17 08:30 (Glucagon Inj) 1 mg UNSCH PRN OTHER 02/24/17 08:30 (Lactinex) 1 tab TID PO 02/25/17 13:00 03/04/17 08:51 (NovoLOG SUPPLEMENTAL SCALE) 1 ACHS SLIDING SCALE SQ 02/27/17 12:00 03/03/17 20:46 (Levemir Inj) 8 units DAILYAC SQ 02/28/17 08:00 03/04/17 08:52 (Levemir Inj) 8 units HS SQ 02/27/17 21:00 03/03/17 20:47 (Flagyl) 500 mg Q8HR PO 02/27/17 14:00 03/05/17 12:00 03/04/17 06:27 (Brethine Inj) 1 mg UNSCH PRN SQ 02/27/17 13:30 (Ecotrin Ec) 81 mg DAILY PO 02/28/17 09:00 03/04/17 08:51 Sodium Chloride 1,000 ml @ 30 mls/hr Q24H PRN IV 03/02/17 13:15 03/02/17 15:28 (Levaquin) 250 mg Q48H PO 03/03/17 11:00 03/03/17 10:20 Lines LSC TLC NELLIEJ colton Past Medical History Type 2 diabetes Hypertension Dyslipidemia Possible developmental delay Past Surgical History Cataract extraction Dental extraction Appendectomy Allergies: Coded Allergies: No Known Allergies (Verified , 02/19/17) Objective . Vital Signs Date Time Temp Pulse Resp B/P (MAP) Pulse Ox O2 Delivery O2 Flow Rate FiO2 03/04/17 08:00 98.4 84 18 112/60 (77) 93 03/04/17 06:23 96 03/04/17 04:00 98.1 85 18 106/61 (76) 99 03/04/17 00:00 98.3 79 18 117/57 (77) 97 03/03/17 23:24 99 03/03/17 21:06 99 Nasal Cannula 3.00 03/03/17 20:45 98 Room Air 03/03/17 20:00 98.5 74 20 97/61 (73) 99 03/03/17 19:43 70 03/03/17 16:05 97.4 84 19 127/63 (84) 99 03/03/17 12:05 97.6 80 19 117/60 (79) 100 03/03/17 10:30 98.2 90 20 102/67 (79) 98 . Laboratory Tests Test 03/02/17 13:52 03/03/17 21:51 White Blood Count 8.2 TH/MM3 5.5 TH/MM3 Red Blood Count 3.14 MIL/MM3 3.16 MIL/MM3 Hemoglobin 9.3 GM/DL 9.8 GM/DL Hematocrit 28.7 % 28.9 % Mean Corpuscular Volume 91.4 FL 91.3 FL Mean Corpuscular Hemoglobin 29.6 PG 31.0 PG Mean Corpuscular Hemoglobin Concent 32.4 % 34.0 % Red Cell Distribution Width 16.9 % 17.1 % Platelet Count 140 TH/MM3 141 TH/MM3 Mean Platelet Volume 9.5 FL 9.5 FL Neutrophils (%) (Auto) 73.3 % 69.6 % Lymphocytes (%) (Auto) 13.1 % 14.5 % Monocytes (%) (Auto) 12.4 % 14.2 % Eosinophils (%) (Auto) 0.6 % 1.0 % Basophils (%) (Auto) 0.6 % 0.7 % Neutrophils # (Auto) 6.0 TH/MM3 3.8 TH/MM3 Lymphocytes # (Auto) 1.1 TH/MM3 0.8 TH/MM3 Monocytes # (Auto) 1.0 TH/MM3 0.8 TH/MM3 Eosinophils # (Auto) 0.1 TH/MM3 0.1 TH/MM3 Basophils # (Auto) 0.0 TH/MM3 0.0 TH/MM3 CBC Comment DIFF FINAL DIFF FINAL Differential Comment Laboratory Tests Test 03/03/17 07:30 Blood Urea Nitrogen 67 MG/DL Creatinine 4.60 MG/DL Random Glucose 130 MG/DL Albumin 2.4 GM/DL Calcium Level 8.1 MG/DL Phosphorus Level 4.8 MG/DL Sodium Level 139 MEQ/L Potassium Level 4.0 MEQ/L Chloride Level 105 MEQ/L Carbon Dioxide Level 22.7 MEQ/L Anion Gap 11 MEQ/L Estimat Glomerular Filtration Rate 15 ML/MIN Imaging Head CT 02/27/17 0000 Signed Impressions: Service Date/Time: Monday, February 27, 2017 12:47 - CONCLUSION: 1. No acute intracranial abnormality is identified. There are no findings to indicate ischemia and no acute blood products are present. 2. Chronic brain changes include generalized atrophy and periventricular white matter change characteristic of chronic microvascular ischemia. 3. There is trace air within the cavernous sinus bilaterally and in the left superior ophthalmic vein likely related to IV access. Flakito Silva MD Chest X-Ray 02/27/17 0000 Signed Impressions: Service Date/Time: Monday, February 27, 2017 13:44 - CONCLUSION: 1. No significant change in right-sided pleural effusion. 2. Mild improved aeration of the lung bases. 3. Stable cardiomegaly. Oliverio Espinal MD Carotid Artery Ultrasound 02/27/17 0000 Signed Impressions: Service Date/Time: Monday, February 27, 2017 14:35 - CONCLUSION: 1. Severe noncalcified plaque in the left carotid bulb and left internal carotid artery with a possible complete occlusion of the left internal carotid artery. No Doppler signal is identified in the vessel which could indicate complete occlusion or severe high-grade stenosis. Consider carotid CTA for further evaluation. 2. There is mild to moderate noncalcified plaque in the right carotid bulb. Less than 50%% stenosis is present within the right internal carotid artery. 3. Please note that the right external carotid artery is not visualized. Flakito Silva MD Hepatobiliary Scan Nuclear Medicine 02/24/17 0000 Signed Impressions: Service Date/Time: Friday, February 24, 2017 12:33 - CONCLUSION: 1. Lack of visualization of the gallbladder. We will have the patient return for delayed imaging. At this point acute cholecystitis versus chronic cholecystitis. Dontrell Mcqueen Jr., MD ADDENDUM: 24-hour delayed imaging shows activity within the gallbladder. This would be consistent with chronic cholecystitis. Dontrell Mcqueen Jr., MD Liver Ultrasound 02/20/17 0000 Signed Impressions: Service Date/Time: Monday, February 20, 2017 10:51 - CONCLUSION: Gallstones and gallbladder wall thickening. There is no intrahepatic biliary duct dilatation. Rylan Wang MD FACR Renal Ultrasound 02/19/17 0000 Signed Impressions: Service Date/Time: February 17:19 - CONCLUSION: No evidence of hydronephrosis. Indwelling Scott catheter with collapsed bladder in thickened bladder wall. Cal Tomlinson MD Last Impressions Hepatobiliary Scan Nuclear Medicine 02/24/17 0000 Signed Impressions: Service Date/Time: Friday, February 24, 2017 12:33 - CONCLUSION: 1. Lack of visualization of the gallbladder. We will have the patient return for delayed imaging. At this point acute cholecystitis versus chronic cholecystitis. Dontrell Mcqueen Jr., MD Chest X-Ray 02/21/17 0600 Signed Impressions: Service Date/Time: Tuesday, February 21, 2017 04:36 - CONCLUSION: Bibasilar areas of suspected consolidation/atelectasis and effusion being worse on the right. The findings have worsened since the prior exam. Flakito Chan MD Liver Ultrasound 02/20/17 0000 Signed Impressions: Service Date/Time: Monday, February 20, 2017 10:51 - CONCLUSION: Gallstones and gallbladder wall thickening. There is no intrahepatic biliary duct dilatation. Rylan Wang MD FACR Head CT 02/19/17 1205 Signed Impressions: Service Date/Time: February 13:02 - CONCLUSION: 1. Cortical atrophy. 2. No acute abnormality identified. The examination is stable compared to prior dated 04/17/12. Sharath Wang MD Renal Ultrasound 02/19/17 0000 Signed Impressions: Service Date/Time: February 17:19 - CONCLUSION: No evidence of hydronephrosis. Indwelling Scott catheter with collapsed bladder in thickened bladder wall. Cal Tomlinson MD Physical Exam GENERAL: not in respiratory distress. SKIN: Cool and moist. No generalized rash HEAD: Atraumatic. Normocephalic. No temporal wasting, or tenderness. EYES: [place] conjunctiva. No petechia or hemorrhage. Extraocular movements full and intact. No scleral icterus. No injection or drainage. EARS, NOSE AND THROAT: Nose without bleeding or purulent nasal discharge. Did not cooperate and Im unable to examine his oropharynx NECK: Trachea midline. Supple and not tender, no meningeal signs CARDIOVASCULAR: Regular rate and rhythm. No murmurs, rubs or gallops heard RESPIRATORY: Clear to auscultation, but decreased at the bases. Breath sounds equal bilaterally. No rales, wheezing or rhonchi ABDOMEN: Soft, nondistended, bowel sounds present and normoactive. Not tender , no guarding. No rebound. No organomegaly. EXTREMITIES: No clubbing, cyanosis, or edema.No joint effusion, has good ROM. No calf tenderness. Well perfused and warm. NEUROLOGICAL: Awake and alert. No facial asymmetry, has equal strong hand engraver signature. Moves both LE. No Babinski PSYCHIATRIC: calm and cooperative. LINE: No evidence of infection Assessment & Plan Remarks IMPRESSION One (+) BC with Coag Neg Staph C/W contaminant Possible sepsis on admission, source? - better - CXR clear, UA ok - ?biliary tree, has elevated LFT, R side tenderness, GB wall thickening and gallstones - chronic merissa on HIDA scan Acute renal failure, on CKD Baseline ?mental delay - he is following all commands, knows his age, knows he is at [place] Thrombocytopenia, better - ?Abx - DIC screen (+) Bilateral infiltrates likely fluid overload RECOMMENDATION Continue Levaquin and Flagyl - change to po - give until 03/05 Monitor progress Clinically doing well from ID standpoint I will be available prn Please call if with any new ID issue or question Sugar Topete MD Mar 04, 2017 09:43
--- NOTE | 2017-03-04 11:05 | HHI.NPPN ---
Subjective General Problems: Mebatolic Acidosis Renal Failure: Chronic, Acute Interval History We decided to dialyze the patient, the daughter refused. His urine output is not as good as prior day. Awaiting AM lab results, apparently the patient was combative earlier. (Gely Dill) Review of Systems General Constitutional: Fatigue (Gely Dill) Objective Data Data Vital Signs Date Time Temp Pulse Resp B/P (MAP) Pulse Ox O2 Delivery O2 Flow Rate FiO2 03/04/17 10:36 96 Nasal Cannula 2.00 03/04/17 08:00 98.4 84 18 112/60 (77) 93 03/04/17 06:23 96 03/04/17 04:00 98.1 85 18 106/61 (76) 99 03/04/17 00:00 98.3 79 18 117/57 (77) 97 03/03/17 23:24 99 03/03/17 21:06 99 Nasal Cannula 3.00 03/03/17 20:45 98 Room Air 03/03/17 20:00 98.5 74 20 97/61 (73) 99 03/03/17 19:43 70 03/03/17 16:05 97.4 84 19 127/63 (84) 99 03/03/17 12:05 97.6 80 19 117/60 (79) 100 (Gely Dill) -: 03/03/17 2151 03/03/17 0730 Tubes & Lines: Vas-Cath Drip Comment None (Gely Dill) Physical Exam General Appearance: No Acute Distress, Comfortable, Malnourished Appearance Remarks Disheveled (Gely Dill) Eyes Eye Exam: Pupils Equal (Gely Dill) Throat Throat Exam: Oral Mucosa [place] & Moist (Gely Dill) Neck Neck Exam: Neck Supple (Gely Dill) Pulmonary Resp Exam: Breath Sounds Equal, No Distress, Rhonchi, Decreased Bases (Gely Dill) Cardiology CV Exam: Regular, Normal Sinus Rhythm, Good Perfusion (Gely Dill) Gastrointestinal/Abdomen GI Exam: Soft, Non-Tender, Bowel Sounds Present (Gely Dill) Genitourinary Exam: Bladder Non-Palpable (Gely Dill) Musculoskeletal MS Exam: Joints Intact, Normal Tone, Unable to Ambulate (Gely Dill) Integumentary Skin Exam: Clear, Warm, Dry, Intact (Gely Dill) Extremeties Extremities Exam: No Edema, Pedal Pulses Palpable (Gely Dill) Neurologic Neuro Exam: Awake, Moving All Extremities Neuro Remarks mumbles at times (Gely Dill) Assessment/Plan Discussed Condition With: Patient Assessment Summary: HERVE/Acute Renal Failure, Acute Tubular Necrosis, Diabetes Mellitus Electrolyte Assessment: Metabolic Acidosis Problem List: (1) Acute renal failure ICD Codes: N17.9 - Acute kidney failure, unspecified Status: Acute Plan: This patient has underlying renal impairment, creatinine 1.8-2 at baseline He has 1.2 g proteinuria, which 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 HERVE from ATN secondary to dehydration, sepsis, and DKA Vascath placed and HD started 02/21 His last dialysis was Thursday; Thursday was held and Family refused treatment Thursday Repeat labs today and dialysis later today if needed We are hopeful he will recover his renal function The plan is not to convert to outpatient dialysis at this time, not ready for discharge Keep vascath in for the time being, secure if needed to prevent dislodgement Tolerating oral food, fluids, although he needs assistance with nutrition Avoid nephrotoxic agents (2) DKA (diabetic ketoacidoses) ICD Codes: E13.10 - Other specified diabetes mellitus with ketoacidosis without coma Status: Resolved Plan: A1c 10 DKA resolved, Diabetic control has been better, continue to adjust insulin with primary team. (3) Sepsis ICD Codes: A41.9 - Sepsis, unspecified organism Status: Acute Plan: Resolving He is on Flagyl and Levaquin 1/2 blood cultures with staph hominis, likely contaminant HIDA scan taken, unable to visualize GB, results showing chronic cholecystitis (4) Elevated troponin ICD Codes: R74.8 - Abnormal levels of other serum enzymes Plan: cardiology has evaluated suspect demand ischemia as etiology of elevated troponin levels 2D echo shows EF 25% (5) Dehydration with hypernatremia ICD Codes: E87.0 - Hyperosmolality and hypernatremia Status: Resolved Plan: Corrected, monitor for recurrence Plan (Gely Dill) Problem List: (1) Acute renal failure ICD Codes: N17.9 - Acute kidney failure, unspecified Status: Acute Plan: This patient has underlying renal impairment, creatinine 1.8-2 at baseline He has 1.2 g proteinuria, which 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 HERVE from ATN secondary to dehydration, sepsis, and DKA Vascath placed and HD started 02/21 His last dialysis was Thursday; Thursday was held and Family refused treatment Thursday Repeat labs today and dialysis later today if needed We are hopeful he will recover his renal function The plan is not to convert to outpatient dialysis at this time, not ready for discharge Keep vascath in for the time being, secure if needed to prevent dislodgement Tolerating oral food, fluids, although he needs assistance with nutrition Avoid nephrotoxic agents (2) DKA (diabetic ketoacidoses) ICD Codes: E13.10 - Other specified diabetes mellitus with ketoacidosis without coma Status: Resolved Plan: A1c 10 DKA resolved, Diabetic control has been better, continue to adjust insulin with primary team. (3) Sepsis ICD Codes: A41.9 - Sepsis, unspecified organism Status: Acute Plan: Resolving He is on Flagyl and Levaquin 1/2 blood cultures with staph hominis, likely contaminant HIDA scan taken, unable to visualize GB, results showing chronic cholecystitis (4) Elevated troponin ICD Codes: R74.8 - Abnormal levels of other serum enzymes Plan: cardiology has evaluated suspect demand ischemia as etiology of elevated troponin levels 2D echo shows EF 25% (5) Dehydration with hypernatremia ICD Codes: E87.0 - Hyperosmolality and hypernatremia Status: Resolved Plan: Corrected, monitor for recurrence Plan patient was seen and examined. Continue dialysis. Urine output is marginal. he remains encephalopathic. (Mc Quintanilla MD) Problem Qualifiers (1) Acute renal failure: Qualified Codes: N17.9 - Acute kidney failure, unspecified (2) DKA (diabetic ketoacidoses): (3) Sepsis: Qualified Codes: A41.9 - Sepsis, unspecified organism Gely Dill Mar 04, 2017 11:05 Mc Quintanilla MD Mar 05, 2017 16:30
--- NOTE | 2017-03-04 11:33 | HHI.PR ---
Subjective Remarks Follow-up acute kidney injury. Patient doing okay no complaints. Patient developed wheezing relieved with nebulizations seen with daughter. Discussed with RN Objective Vitals Vital Signs Date Time Temp Pulse Resp B/P (MAP) Pulse Ox O2 Delivery O2 Flow Rate FiO2 03/04/17 10:36 96 Nasal Cannula 2.00 03/04/17 08:00 98.4 84 18 112/60 (77) 93 03/04/17 06:23 96 03/04/17 04:00 98.1 85 18 106/61 (76) 99 03/04/17 00:00 98.3 79 18 117/57 (77) 97 03/03/17 23:24 99 03/03/17 21:06 99 Nasal Cannula 3.00 03/03/17 20:45 98 Room Air 03/03/17 20:00 98.5 74 20 97/61 (73) 99 03/03/17 19:43 70 03/03/17 16:05 97.4 84 19 127/63 (84) 99 03/03/17 12:05 97.6 80 19 117/60 (79) 100 I/O 03/03/17 03/03/17 03/03/17 03/04/17 03/04/17 03/04/17 07:00 15:00 23:00 07:00 15:00 23:00 Intake Total 688 ml 240 ml 240 ml Output Total 400 ml 350 ml 200 ml Balance 288 ml -110 ml 40 ml Intake Oral 240 ml 240 ml 240 ml IV Total 448 ml Output Urine Total 400 ml 350 ml 200 ml # Bowel Movements 2 1 Result Diagram: 03/03/17 2151 03/03/17 0730 Imaging Last Impressions Head CT 02/27/17 0000 Signed Impressions: Service Date/Time: Monday, February 27, 2017 12:47 - CONCLUSION: 1. No acute intracranial abnormality is identified. There are no findings to indicate ischemia and no acute blood products are present. 2. Chronic brain changes include generalized atrophy and periventricular white matter change characteristic of chronic microvascular ischemia. 3. There is trace air within the cavernous sinus bilaterally and in the left superior ophthalmic vein likely related to IV access. Flakito Silva MD Chest X-Ray 02/27/17 0000 Signed Impressions: Service Date/Time: Monday, February 27, 2017 13:44 - CONCLUSION: 1. No significant change in right-sided pleural effusion. 2. Mild improved aeration of the lung bases. 3. Stable cardiomegaly. Oliverio Espinal MD Carotid Artery Ultrasound 02/27/17 0000 Signed Impressions: Service Date/Time: Monday, February 27, 2017 14:35 - CONCLUSION: 1. Severe noncalcified plaque in the left carotid bulb and left internal carotid artery with a possible complete occlusion of the left internal carotid artery. No Doppler signal is identified in the vessel which could indicate complete occlusion or severe high-grade stenosis. Consider carotid CTA for further evaluation. 2. There is mild to moderate noncalcified plaque in the right carotid bulb. Less than 50%% stenosis is present within the right internal carotid artery. 3. Please note that the right external carotid artery is not visualized. Flakito Silva MD Hepatobiliary Scan Nuclear Medicine 02/24/17 0000 Signed Impressions: Service Date/Time: Friday, February 24, 2017 12:33 - CONCLUSION: 1. Lack of visualization of the gallbladder. We will have the patient return for delayed imaging. At this point acute cholecystitis versus chronic cholecystitis. Dontrell Mcqueen Jr., MD ADDENDUM: 24-hour delayed imaging shows activity within the gallbladder. This would be consistent with chronic cholecystitis. Dontrell Mcqueen Jr., MD Liver Ultrasound 02/20/17 0000 Signed Impressions: Service Date/Time: Monday, February 20, 2017 10:51 - CONCLUSION: Gallstones and gallbladder wall thickening. There is no intrahepatic biliary duct dilatation. Rylan Wang MD FACR Renal Ultrasound 02/19/17 0000 Signed Impressions: Service Date/Time: February 17:19 - CONCLUSION: No evidence of hydronephrosis. Indwelling Scott catheter with collapsed bladder in thickened bladder wall. Cal Tomlinson MD Objective Remarks GENERAL: WD WN on RA NECK: Trachea midline. No JVD. CARDIOVASCULAR: Regular rate and rhythm. Systolic murmur noted RESPIRATORY: No accessory muscle use. Decreased Breath sounds equal bilaterally. GASTROINTESTINAL: Abdomen soft, non-tender, nondistended. MUSCULOSKELETAL: Extremities without clubbing, cyanosis, or edema. No obvious deformities. NEUROLOGICAL: Awake and alert. No obvious cranial nerve deficits. Motor grossly within normal limits. Following commands No significant change in PE from previous Procedures Vascath A/P Problem List: (1) Acute metabolic encephalopathy ICD Code: G93.41 - Metabolic encephalopathy (2) Altered mental status ICD Code: R41.82 - Altered mental status, unspecified Status: Acute (3) DKA (diabetic ketoacidoses) ICD Code: E13.10 - Other specified diabetes mellitus with ketoacidosis without coma Status: Resolved (4) Non-STEMI (non-ST elevated myocardial infarction) ICD Code: I21.4 - Non-ST elevation (NSTEMI) myocardial infarction Status: Acute (5) Dehydration with hypernatremia ICD Code: E87.0 - Hyperosmolality and hypernatremia Status: Resolved (6) Sepsis ICD Code: A41.9 - Sepsis, unspecified organism Status: Acute (7) UTI (urinary tract infection) ICD Code: N39.0 - Urinary tract infection, site not specified Status: Acute (8) Acute renal failure ICD Code: N17.9 - Acute kidney failure, unspecified Status: Acute (9) Hyperglycemia ICD Code: R73.9 - Hyperglycemia, unspecified Status: Acute (10) Lactic acidemia ICD Code: E87.2 - Acidosis (11) Transaminitis ICD Code: R74.0 - Nonspecific elevation of levels of transaminase and lactic acid dehydrogenase [LDH] (12) Respiratory insufficiency ICD Code: R06.89 - Other abnormalities of breathing Assessment and Plan Acute encephalopathy, multifactorial. Recent episode likely secondary to metabolic derangement during hemodialysis. Evaluated by neurology recommended aspirin. He is stable. Neuro checks -repeated CT with no acute abnormality. -Treat agitation with when necessary Haldol -EEG without seizure activity. Carotid sonogram showed left carotid occlusion and 50% stenosis on the right carotid. Patient on aspirin. Patient on statin currently on hold because of transaminitis. Telemetry shows nonsustained V. tach but was asymptomatic during the episode. Holter monitor results as follows normal Sinus rhythm with an average heart rate of 86 beats per minute. There were periods of sinus tachycardia up to 124 beats per minute at 9:10pm. There were 3,693 PVCs, 51 cycles of ventricular bigeminy, 419 ventricular couplets and 14 runs of wide complex tachycardia, the longest being 3 beats with a maximum heart rate of 145 beats per minute. The 3 beat runs of wide complex tachycardia are polymorphic. There are no PACs. -Sleep study outpatient Respiratory insufficiency - keep on oxygen as needed to keep O2 sat >90% - continue neb treatment. elevated troponin Hypertension cardiomyopathy - echo with EF 25% - Aspirin - Metoprolol 25 mg every 8 hours. Unable to start MILDRED inhibitor secondary to acute kidney injury - Avoid statins due to transaminitis - evaluated by cardiology. Transaminitis chronic cholecystitis - Monitor liver enzymes Acute kidney injury superimposed on chronic kidney disease Severe dehydration - Baseline creatinine 1.8 to 2. Acute worsening secondary to severe dehydration , ATN and DKA - Monitor renal function closely. - Creatinine is rising with episodes of confusion likely secondary to uremia. Nephrology to resume hemodialysis Probable sepsis UTI -- one bottle of the blood cultures with staph coag. negative-likely contamination. -ID consult appreciated and started on Levaquin and Flagyl until March 05. diarrhea- stool negative for c-diff. Anemia thrombocytopenia from Sepsis/DIC -heparin on hold. -hematology following. -Monitor CBC. DKA-resolved but hyperglycemic hypoglycemic episodes- this has resolved. -continue sliding scale coverage. -adjust levemir, A1c 10 -continue to monitor for hypoglycemia FEN. Calorie ct. diet advanced. Discussed with daughter regarding possible PEG Prn IVF monitor for overload PROPH: - Bilateral lower extremity SCDs. hold Heparin as noted above. Discharge Planning Not stable for dc. Renal wants to observe pt off HD Problem Qualifiers (1) Altered mental status: Qualified Codes: R41.82 - Altered mental status, unspecified (2) DKA (diabetic ketoacidoses): (3) Sepsis: Qualified Codes: A41.9 - Sepsis, unspecified organism (4) UTI (urinary tract infection): (5) Acute renal failure: Qualified Codes: N17.9 - Acute kidney failure, unspecified Isrrael Tamayo MD Mar 04, 2017 11:33
[2017-03-04 11:55] LABS: ALBUMIN 2.7 GM/DL (3.4-5.0); BICARBONATE 24.7 MEQ/L (21.0-32.0); CALCIUM 8.3 MG/DL (8.5-10.1); CREATININE 4.9 MG/DL (0.60-1.30); PHOSPHORUS 5.5 MG/DL (2.5-4.9)
[2017-03-04] MEDS: HEPARIN SODIUM - IV 10,000 UNITS/10 ML VIAL PRN ×2 (20:43)
[2017-03-04] MEDS: GENTAMICIN SULFATE (DIALYSIS USE ONLY) 20 MG/2 ML VIAL OTHER PRN ×2 (20:44)
[2017-03-05] VITALS (9 sets, daily range): BP systolic 103–130; BP diastolic 56–66; PULSE 75–87; RESP 20–24; TEMP 97.3–98.8; O2SAT 96–100
[2017-03-05] MEDS: RESP: ALBUTEROL 2.5 MG/IPRATROPIUM 0.5 MG NEB (PRN) INH ×6 (00:10→07:57)
[2017-03-05] MEDS: CHLORHEXIDINE GLUCONATE 2 % 1 PACK (2 CLOTHS) TOP SCH ×2 (03:20)
[2017-03-05] MEDS: METOPROLOL TARTRATE 25 MG TAB PO SCH ×6 (05:17→21:35)
[2017-03-05] MEDS: metroNIDAZOLE 500 MG TAB PO SCH ×2 (05:17)
[2017-03-05] MEDS: INSULIN ASPART SUPPLEMENTAL SCALE SQ SCH ×8 (08:00→21:00)
[2017-03-05] MEDS: DOCUSATE SODIUM 50 MG/SENNA 8.6 MG TAB PO SCH ×4 (09:00→21:00)
[2017-03-05] MEDS: INSULIN DETEMIR 100 UNITS/ML VIAL SQ SCH ×2 (09:10)
[2017-03-05] MEDS: LACTOBACILLUS ACIDOPHILUS TAB PO SCH ×6 (09:36→17:48)
[2017-03-05] MEDS: ASPIRIN EC 81 MG TABEC PO SCH ×2 (09:36)
[2017-03-05] MEDS: SODIUM CHLORIDE 0.9% FLUSH 10 ML FLUSH IV FLUSH SCH ×4 (09:40→21:00)
--- NOTE | 2017-03-05 10:06 | HHI.PR ---
Subjective Remarks Follow-up visit acute kidney injury, HTN, cardiomyopathy, encephalopathy, poor nutrition. Patient seen and examined today. Family member at the bedside. Family reports patient postdialysis has not been participating with activities, with poor appetite. States prior to dialysis yesterday patient has been fed and has been eating well but postdialysis patient has cough, not healing very well, appears to be choking on his food. 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 Patient is awake and alert. Denies any pain or discomfort. Minimal verbalization. Moves right upper extremity more than the left able to follow commands. Denies any shortness of breath or dyspnea. Denies abdominal pain or discomfort. Objective Vitals Vital Signs Date Time Temp Pulse Resp B/P (MAP) Pulse Ox O2 Delivery O2 Flow Rate FiO2 03/05/17 07:57 96 21 03/05/17 04:00 99 Room Air 21 03/05/17 04:00 98.8 83 22 114/58 (76) 100 03/05/17 00:00 98.1 87 20 111/56 (74) 100 03/05/17 00:00 99 Room Air 21 03/04/17 22:00 88 03/04/17 21:47 100 03/04/17 20:00 99 Room Air 21 03/04/17 20:00 98.8 89 20 114/62 (79) 100 03/04/17 16:00 98.3 93 24 116/69 (85) 96 03/04/17 12:00 97.0 89 18 99/61 (74) 100 03/04/17 10:36 96 Nasal Cannula 2.00 I/O 03/04/17 03/04/17 03/04/17 03/05/17 03/05/17 03/05/17 07:00 15:00 23:00 07:00 15:00 23:00 Intake Total 240 ml 480 ml 120 ml Output Total 200 ml 200 ml 1 ml Balance 40 ml 280 ml 119 ml Intake Oral 240 ml 480 ml 120 ml Output Urine Total 200 ml 200 ml Stool Total 1 ml # Voids 1 # Bowel Movements 2 Result Diagram: 03/03/17 2151 03/04/17 1104 Imaging Last Impressions Head CT 02/27/17 0000 Signed Impressions: Service Date/Time: Monday, February 27, 2017 12:47 - CONCLUSION: 1. No acute intracranial abnormality is identified. There are no findings to indicate ischemia and no acute blood products are present. 2. Chronic brain changes include generalized atrophy and periventricular white matter change characteristic of chronic microvascular ischemia. 3. There is trace air within the cavernous sinus bilaterally and in the left superior ophthalmic vein likely related to IV access. Flakito Silva MD Chest X-Ray 02/27/17 Signed Impressions: Service Date/Time: Monday, February 27, 2017 13:44 - CONCLUSION: 1. No significant change in right-sided pleural effusion. 2. Mild improved aeration of the lung bases. 3. Stable cardiomegaly. Oliverio Espinal MD Carotid Artery Ultrasound 02/27/17 Signed Impressions: Service Date/Time: Monday, February 27, 2017 14:35 - CONCLUSION: 1. Severe noncalcified plaque in the left carotid bulb and left internal carotid artery with a possible complete occlusion of the left internal carotid artery. No Doppler signal is identified in the vessel which could indicate complete occlusion or severe high-grade stenosis. Consider carotid CTA for further evaluation. 2. There is mild to moderate noncalcified plaque in the right carotid bulb. Less than 50%% stenosis is present within the right internal carotid artery. 3. Please note that the right external carotid artery is not visualized. Flakito Silva MD Hepatobiliary Scan Nuclear Medicine 02/24/17 Signed Impressions: Service Date/Time: Friday, February 24, 2017 12:33 - CONCLUSION: 1. Lack of visualization of the gallbladder. We will have the patient return for delayed imaging. At this point acute cholecystitis versus chronic cholecystitis. Dontrell Mcqueen Jr., MD ADDENDUM: 24-hour delayed imaging shows activity within the gallbladder. This would be consistent with chronic cholecystitis. Dontrell Mcqueen Jr., MD Liver Ultrasound 02/20/17 Signed Impressions: Service Date/Time: Monday, February 20, 2017 10:51 - CONCLUSION: Gallstones and gallbladder wall thickening. There is no intrahepatic biliary duct dilatation. Rylan Wang MD FACR Renal Ultrasound 02/19/17 Signed Impressions: Service Date/Time: February 17:19 - CONCLUSION: No evidence of hydronephrosis. Indwelling Scott catheter with collapsed bladder in thickened bladder wall. Cal Tomlinson MD Objective Remarks GENERAL: This is a well-nourished, well-developed patient, in no apparent distress. SKIN: Warm and dry. HEENT: Normocephalic. Pupils equal round and reactive. Nose without bleeding. Airway patent. NECK: Trachea midline. No JVD. Supple. CARDIOVASCULAR: Regular rate and rhythm without murmurs, gallops, or rubs. RESPIRATORY: Diminished bases. Expiratory wheezes. GASTROINTESTINAL: Abdomen soft, non-tender, nondistended. Bowel Sounds normoactive x4. MUSCULOSKELETAL: Extremities without clubbing, cyanosis, or edema. NEUROLOGICAL: Awake and alert. Oriented to person. Moves all extremities, right upper extremity more than left upper extremity Normal speech. Procedures Vascath A/P Problem List: (1) Acute metabolic encephalopathy ICD Code: G93.41 - Metabolic encephalopathy (2) Altered mental status ICD Code: R41.82 - Altered mental status, unspecified Status: Acute (3) DKA (diabetic ketoacidoses) ICD Code: E13.10 - Other specified diabetes mellitus with ketoacidosis without coma Status: Resolved (4) Non-STEMI (non-ST elevated myocardial infarction) ICD Code: I21.4 - Non-ST elevation (NSTEMI) myocardial infarction Status: Acute (5) Dehydration with hypernatremia ICD Code: E87.0 - Hyperosmolality and hypernatremia Status: Resolved (6) Sepsis ICD Code: A41.9 - Sepsis, unspecified organism Status: Acute (7) UTI (urinary tract infection) ICD Code: N39.0 - Urinary tract infection, site not specified Status: Acute (8) Acute renal failure ICD Code: N17.9 - Acute kidney failure, unspecified Status: Acute (9) Hyperglycemia ICD Code: R73.9 - Hyperglycemia, unspecified Status: Acute (10) Lactic acidemia ICD Code: E87.2 - Acidosis (11) Transaminitis ICD Code: R74.0 - Nonspecific elevation of levels of transaminase and lactic acid dehydrogenase [LDH] (12) Respiratory insufficiency ICD Code: R06.89 - Other abnormalities of breathing Assessment and Plan Patient is a 77-year-old male with past medical history significant for type 2 diabetes on insulin, hypertension, dyslipidemia, questionable developmental delay who was brought to the emergency room after being found down in his apartment. Acute encephalopathy, multifactorial. Recent episode likely secondary to metabolic derangement during hemodialysis. Evaluated by neurology recommended aspirin. He is stable. Neuro checks - repeated CT with no acute abnormality. - Treat agitation with when necessary Haldol - EEG without seizure activity. Carotid sonogram showed left carotid occlusion and 50% stenosis on the right carotid. Patient on aspirin. Patient on statin currently on hold because of transaminitis. - Telemetry shows nonsustained V. tach but was asymptomatic during the episode. Holter monitor results as follows normal Sinus rhythm with an average heart rate of 86 beats per minute. There were periods of sinus tachycardia up to 124 beats per minute at 9:10pm. There were 3,693 PVCs, 51 cycles of ventricular bigeminy, 419 ventricular couplets and 14 runs of wide complex tachycardia, the longest being 3 beats with a maximum heart rate of 145 beats per minute. The 3 beat runs of wide complex tachycardia are polymorphic. There are no PACs. - Sleep study outpatient Respiratory insufficiency - keep on oxygen as needed to keep O2 sat >90% - continue neb treatment scheduled and PRN - Wheezing today restarted duoneb scheduled. Elevated troponin Hypertension Cardiomyopathy - ECHO with EF 25% - Aspirin - Metoprolol 25 mg every 8 hours. Unable to start MILDRED inhibitor secondary to acute kidney injury - Avoid statins due to transaminitis - Evaluated by cardiology, recommends possible underlying coronary disease continue with supportive care Transaminitis - Chronic cholecystitis - Monitor liver enzymes Acute kidney injury superimposed on chronic kidney disease Severe dehydration - Baseline creatinine 1.8 to 2. Acute worsening secondary to severe dehydration, ATN and DKA - Monitor renal function closely. - Creatinine is rising with episodes of confusion likely secondary to uremia. Nephrology to resume hemodialysis Probable sepsis UTI - one bottle of the blood cultures with staph coag. negative-likely contamination. - ID consult appreciated and started on Levaquin and Flagyl until March 05. Diarrhea stool negative for c-diff. Anemia thrombocytopenia from Sepsis/DIC - heparin on hold. - hematology following. - Monitor CBC. Stable at this time. DKA-resolved but hyperglycemic hypoglycemic episodes- this has resolved. - continue sliding scale coverage. - adjust levemir, A1c 10 - continue to monitor for hypoglycemia FEN. Calorie ct. diet advanced. Discussed with daughter regarding possible PEG Prn IVF monitor for overload - Speech evaluate patient coughing post HD when eating. Able to tolerate puree not grits or eggs PROPH: - Bilateral lower extremity SCDs. hold Heparin as noted above. Discharge Planning Plan for discharge [facility] when cleared by renal doctors - may need hemodialysis placement if kidneys continued to fail. Problem Qualifiers (1) Altered mental status: Qualified Codes: R41.82 - Altered mental status, unspecified (2) DKA (diabetic ketoacidoses): (3) Sepsis: Qualified Codes: A41.9 - Sepsis, unspecified organism (4) UTI (urinary tract infection): (5) Acute renal failure: Qualified Codes: N17.9 - Acute kidney failure, unspecified Dulce Maria Granados Mar 05, 2017 10:06 am
[2017-03-05] MEDS: LEVOFLOXACIN 250 MG TAB PO SCH ×2 (11:50)
--- NOTE | 2017-03-05 12:27 | HHI.HCPN ---
Reason for visit a. To assist with evaluation and management of symptoms including: Agitation, restlessness, encephalopathy; dyspnea b. To assist medical decision maker(s) with: better understanding of current medical conditions; weighing benefits/burdens of medical treatment options; making medical treatment decisions. . Subjective/Interval History INTERVAL NOTE: Family at bedside says that patient has looked poorly since yesterday. Unclear from notes if patient received dialysis yesterday -- nephrology CARDIAC CARE NURSE note suggests that the daughter had declined dialysis. Patient has had increased confusion, less verbal, and has an unusual breathing pattern with multiple wheezy deep breaths followed by apneic period. Lungs sound relatively good, and wheezing may be more very upper airways. He has received nebulizer treatments today with little improvement. Urine output is down. CBC from 03/03 shows Hg 9.8; WBC 5.5; Plt 141. Chemistry from 03/04/17 BUN 73 (increasing steadily) and creat 4.9. Albumin 2.7. Case discussed on floor with Dr. Tamayo and with respiratory therapy. . Family/friend interactions Family at bedside. Discussed concerns with falling mental status and changing respiratory picture. . 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: Never completed Objective Vital Signs Date Time Temp Pulse Resp B/P (MAP) Pulse Ox O2 Delivery O2 Flow Rate FiO2 03/05/17 07:57 96 21 03/05/17 04:00 99 Room Air 21 03/05/17 04:00 98.8 83 22 114/58 (76) 100 03/05/17 00:00 98.1 87 20 111/56 (74) 100 03/05/17 00:00 99 Room Air 21 03/04/17 22:00 88 03/04/17 21:47 100 03/04/17 20:00 99 Room Air 21 03/04/17 20:00 98.8 89 20 114/62 (79) 100 03/04/17 16:00 98.3 93 24 116/69 (85) 96 03/04/17 12:00 97.0 89 18 99/61 (74) 100 Intake & Output 03/05/17 03/05/17 07:00 19:00 Intake Total 120 ml Output Total 1 ml Balance 119 ml Intake Oral 120 ml Stool Total 1 ml . Physical Exam CONSTITUTIONAL/GENERAL: This is an elderly, weak, confused patient. Audible wheezing vs upper airway stridor. Eyes open for deep wheezy breaths then drifts off with some apneic periods. TUBES/LINES/DRAINS: Vas-Cath right neck, left subclavian line, supplemental oxygen NECK: Trachea midline. Supple, nontender. CARDIOVASCULAR: Regular rate and rhythm without murmurs, gallops, or rubs. No JVD. RESPIRATORY/CHEST: Symmetric respirations. Multiple deep wheezy breaths then drifts off with an apneic periods. Lungs are clear -- wheezy sound very much upper airway. GASTROINTESTINAL: Abdomen soft, non-tender, nondistended. No hepato-splenomegaly , or palpable masses. No guarding. Bowel sounds present. GENITOURINARY: Without palpable bladder distension. Condom catheter in place. MUSCULOSKELETAL: Extremities without clubbing, cyanosis, or edema. No joint tenderness or effusion noted. NEUROLOGICAL: Awake agitated during wheezy periods, then lethargic during apneic periods. Not able to follow commands . Moving all extremities. PSYCHIATRIC: Difficult to assess due to level of responsiveness today. . Diagnostic Tests Laboratory Laboratory Tests Test 03/02/17 13:52 03/03/17 07:30 03/03/17 21:51 03/04/17 11:04 White Blood Count 8.2 TH/MM3 (4.0-11.0) 5.5 TH/MM3 (4.0-11.0) Red Blood Count 3.14 MIL/MM3 (4.50-5.90) 3.16 MIL/MM3 (4.50-5.90) Hemoglobin 9.3 GM/DL (13.0-17.0) 9.8 GM/DL (13.0-17.0) Hematocrit 28.7 % (39.0-51.0) 28.9 % (39.0-51.0) Mean Corpuscular Volume 91.4 FL (80.0-100.0) 91.3 FL (80.0-100.0) Mean Corpuscular Hemoglobin 29.6 PG (27.0-34.0) 31.0 PG (27.0-34.0) Mean Corpuscular Hemoglobin Concent 32.4 % (32.0-36.0) 34.0 % (32.0-36.0) Red Cell Distribution Width 16.9 % (11.6-17.2) 17.1 % (11.6-17.2) Platelet Count 140 TH/MM3 (150-450) 141 TH/MM3 (150-450) Mean Platelet Volume 9.5 FL (7.0-11.0) 9.5 FL (7.0-11.0) Neutrophils (%) (Auto) 73.3 % (16.0-70.0) 69.6 % (16.0-70.0) Lymphocytes (%) (Auto) 13.1 % (9.0-44.0) 14.5 % (9.0-44.0) Monocytes (%) (Auto) 12.4 % (0.0-8.0) 14.2 % (0.0-8.0) Eosinophils (%) (Auto) 0.6 % (0.0-4.0) 1.0 % (0.0-4.0) Basophils (%) (Auto) 0.6 % (0.0-2.0) 0.7 % (0.0-2.0) Neutrophils # (Auto) 6.0 TH/MM3 (1.8-7.7) 3.8 TH/MM3 (1.8-7.7) Lymphocytes # (Auto) 1.1 TH/MM3 (1.0-4.8) 0.8 TH/MM3 (1.0-4.8) Monocytes # (Auto) 1.0 TH/MM3 (0-0.9) 0.8 TH/MM3 (0-0.9) Eosinophils # (Auto) 0.1 TH/MM3 (0-0.4) 0.1 TH/MM3 (0-0.4) Basophils # (Auto) 0.0 TH/MM3 (0-0.2) 0.0 TH/MM3 (0-0.2) CBC Comment DIFF FINAL DIFF FINAL Differential Comment Blood Urea Nitrogen 67 MG/DL (7-18) 73 MG/DL (7-18) Creatinine 4.60 MG/DL (0.60-1.30) 4.90 MG/DL (0.60-1.30) Random Glucose 130 MG/DL (74-106) 95 MG/DL (74-106) Albumin 2.4 GM/DL (3.4-5.0) 2.7 GM/DL (3.4-5.0) Calcium Level 8.1 MG/DL (8.5-10.1) 8.3 MG/DL (8.5-10.1) Phosphorus Level 4.8 MG/DL (2.5-4.9) 5.5 MG/DL (2.5-4.9) Sodium Level 139 MEQ/L (136-145) 137 MEQ/L (136-145) Potassium Level 4.0 MEQ/L (3.5-5.1) 4.1 MEQ/L (3.5-5.1) Chloride Level 105 MEQ/L (98-107) 102 MEQ/L (98-107) Carbon Dioxide Level 22.7 MEQ/L (21.0-32.0) 24.7 MEQ/L (21.0-32.0) Anion Gap 11 MEQ/L (5-15) 10 MEQ/L (5-15) Estimat Glomerular Filtration Rate 15 ML/MIN (>89) 14 ML/MIN (>89) . Result Diagram: 03/03/17215003/04/17 110 Microbiology Microbiology Date/Time Source Procedure Growth Status 02/19/17 12:10 Blood Peripheral Aerobic Blood Culture - Final Staphylococcus Hominis-Hominis Complete 02/19/17 12:10 Blood Peripheral Anaerobic Blood Culture - Final NO GROWTH IN 5 DAYS Complete 02/19/17 12:10 Urine Catheterized Urine Urine Culture - Final NO GROWTH IN 48 HOURS. Complete . Imaging Last Impressions Head CT 02/27/17 0000 Signed Impressions: Service Date/Time: Monday, February 27, 2017 12:47 - CONCLUSION: 1. No acute intracranial abnormality is identified. There are no findings to indicate ischemia and no acute blood products are present. 2. Chronic brain changes include generalized atrophy and periventricular white matter change characteristic of chronic microvascular ischemia. 3. There is trace air within the cavernous sinus bilaterally and in the left superior ophthalmic vein likely related to IV access. Flakito Silva MD Chest X-Ray 02/27/17 0000 Signed Impressions: Service Date/Time: Monday, February 27, 2017 13:44 - CONCLUSION: 1. No significant change in right-sided pleural effusion. 2. Mild improved aeration of the lung bases. 3. Stable cardiomegaly. Oliverio Espinal MD Carotid Artery Ultrasound 02/27/17 0000 Signed Impressions: Service Date/Time: Monday, February 27, 2017 14:35 - CONCLUSION: 1. Severe noncalcified plaque in the left carotid bulb and left internal carotid artery with a possible complete occlusion of the left internal carotid artery. No Doppler signal is identified in the vessel which could indicate complete occlusion or severe high-grade stenosis. Consider carotid CTA for further evaluation. 2. There is mild to moderate noncalcified plaque in the right carotid bulb. Less than 50%% stenosis is present within the right internal carotid artery. 3. Please note that the right external carotid artery is not visualized. Flakito Silva MD Hepatobiliary Scan Nuclear Medicine 02/24/17 0000 Signed Impressions: Service Date/Time: Friday, February 24, 2017 12:33 - CONCLUSION: 1. Lack of visualization of the gallbladder. We will have the patient return for delayed imaging. At this point acute cholecystitis versus chronic cholecystitis. Dontrell Mcqueen Jr., MD ADDENDUM: 24-hour delayed imaging shows activity within the gallbladder. This would be consistent with chronic cholecystitis. Dontrell Mcqueen Jr., MD Liver Ultrasound 02/20/17 0000 Signed Impressions: Service Date/Time: Monday, February 20, 2017 10:51 - CONCLUSION: Gallstones and gallbladder wall thickening. There is no intrahepatic biliary duct dilatation. Rylan Wang MD FACR Renal Ultrasound 02/19/17 0000 Signed Impressions: Service Date/Time: February 17:19 - CONCLUSION: No evidence of hydronephrosis. Indwelling Scott catheter with collapsed bladder in thickened bladder wall. Cal Tomlinson MD . Procedures Left subclavian line 02/19/17 Vas-Cath placement 02/21/17 . Assessment and Plan Disease Oriented Problem List: (1) encephalopathy, likely due to multiple medical issues, sepsis, renal failure (2) acute renal failure, history of chronic kidney disease; possible ATN (3) elevated transaminases and abnormal HIDA scan Comment: Hepatobiliary scan from 02/24/17 consistent with chronic cholecystitis. LFTs improving but not normal. . 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 One daughter and 3 sons, estranged from the 3 sons. Spiritual: Not spiritual christian but daughter does want banking analyst visits for him. Legal: The patient lacks capacity for decision-making, and it is uncertain whether he will regain that capacity. He has 4 children, but is estranged from his 3 sons, and they have thus far been unwilling to speak with us or participate in decision-making. Therefore, the patient's daughter Jakub Crawford is his proxy decision-maker. We have made it clear that we are available to speak with any of his sons if they call. Ethical issues impacting care: No known ethical issues. . Important Contacts Daughter/HCP: Jakub Crawford [phone] Granddaughter: Renae Rocha [phone] . Prognosis Patient has been able to improve during the course of the hospitalization, but now having setbacks. Overall clinical picture would suggest high likelihood of ongoing decline and need for recurrent hospitalizations should he survive this one. . . . Code Status: Full Code Plan == FULL CODE - daughter is encouraged by his improvement to date, and wants to continue full aggressive care == DECISION-MAKING: The patient lacks capacity for decision-making, and the patient's daughter Jakub Crawford is his proxy decision-maker. == GOALS: Discussion with daughter 02/26/17: She is encouraged by his improving alertness and his ability to communicate now. She says she continues to pray that this will continue getting better and she wants to continue full aggressive care. She also notes that his kidney failure is felt to be due to ATN, and she is hoping that that may eventually resolve also. == SYMPTOMS: * New onset of wheezing/dyspnea described above and accompanied by declining mental status. With lungs clear and reasonable 02 sats, wheezing may be upper airway or from a neurologic etiology. Little help from nebulizers. * Agitation -- appears to be associate with respiratory issues today. == Case discussed at length on floor with Dr. Tamayo. Addtional imaging (neck ) has been ordered. Dr Tamayo has phoned nephrology. Patient had CT of head on 02/27, but given breathing pattern/clear lungs/ and altered mental status, may need to re-evaluate head imaging if other cause of acute decline is not apparent. == Palliative care will continue to follow to assist with symptom management and to further evaluate goals of medical treatment as the clinical course evolves. . Time Spent Total Floor Time (mins): 40 (Over 40 minutes spent on floor with chart review, patient exam, bedside discussion with family, coordination of care with nurse/ Dr. Tamayo/Respiratory therapy.) Face to Face Time (mins): 10 >50% Counseling/Coord of Care: Yes Attestation To help prompt me to consider important information that might be impacting today's encounter and assessment, information from prior notes written by myself or my colleagues may have been "brought forward" into today's note. My signature on this note, however, is an attestation that I personally performed the exam, history, and/or decision-making noted today, and, unless otherwise indicated, the interactions with patient, family, and staff as well as the review of records all occurred today. I also attest that the listed assessment and stated plan reflect my best clinical judgment today based on the combination of historical information, prior notes, and today's exam/ interactions. When time spent is documented, it refers only to time spent today by the signer, or if indicated, combined time spent today by collaborating physician/nurse practitioner. . Dayo Jarquin MD Mar 05, 2017 12:27
--- NOTE | 2017-03-05 12:32 | HHI.PR ---
Subjective Remarks Follow-up acute kidney injury. HD yesterday but no fluid taken. According to daughter, since hemodialysis, patient has been more confused with no urine output. Patient with irregular breathing though with good saturation on room air. Noted audible stridor /grunting oneil with flexed neck. He is arousable but definitely more confused than yesterday. Discussed with daughter and she is agreeable to dialysis if needed. 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 Vital Signs Date Time Temp Pulse Resp B/P (MAP) Pulse Ox O2 Delivery O2 Flow Rate FiO2 03/05/17 07:57 96 21 03/05/17 04:00 99 Room Air 21 03/05/17 04:00 98.8 83 22 114/58 (76) 100 03/05/17 00:00 98.1 87 20 111/56 (74) 100 03/05/17 00:00 99 Room Air 21 03/04/17 22:00 88 03/04/17 21:47 100 03/04/17 20:00 99 Room Air 21 03/04/17 20:00 98.8 89 20 114/62 (79) 100 03/04/17 16:00 98.3 93 24 116/69 (85) 96 I/O 03/04/17 03/04/17 03/04/17 03/05/17 03/05/17 03/05/17 07:00 15:00 23:00 07:00 15:00 23:00 Intake Total 240 ml 480 ml 120 ml Output Total 200 ml 200 ml 1 ml Balance 40 ml 280 ml 119 ml Intake Oral 240 ml 480 ml 120 ml Output Urine Total 200 ml 200 ml Stool Total 1 ml # Voids 1 # Bowel Movements 2 Result Diagram: 03/03/17 2151 03/04/17 1104 Imaging Last Impressions Head CT 02/27/17 0000 Signed Impressions: Service Date/Time: Monday, February 27, 2017 12:47 - CONCLUSION: 1. No acute intracranial abnormality is identified. There are no findings to indicate ischemia and no acute blood products are present. 2. Chronic brain changes include generalized atrophy and periventricular white matter change characteristic of chronic microvascular ischemia. 3. There is trace air within the cavernous sinus bilaterally and in the left superior ophthalmic vein likely related to IV access. Flakito Silva MD Chest X-Ray 02/27/17 0000 Signed Impressions: Service Date/Time: Monday, February 27, 2017 13:44 - CONCLUSION: 1. No significant change in right-sided pleural effusion. 2. Mild improved aeration of the lung bases. 3. Stable cardiomegaly. Oliverio Espinal MD Carotid Artery Ultrasound 02/27/17 0000 Signed Impressions: Service Date/Time: Monday, February 27, 2017 14:35 - CONCLUSION: 1. Severe noncalcified plaque in the left carotid bulb and left internal carotid artery with a possible complete occlusion of the left internal carotid artery. No Doppler signal is identified in the vessel which could indicate complete occlusion or severe high-grade stenosis. Consider carotid CTA for further evaluation. 2. There is mild to moderate noncalcified plaque in the right carotid bulb. Less than 50%% stenosis is present within the right internal carotid artery. 3. Please note that the right external carotid artery is not visualized. Flakito Silva MD Hepatobiliary Scan Nuclear Medicine 02/24/17 0000 Signed Impressions: Service Date/Time: Friday, February 24, 2017 12:33 - CONCLUSION: 1. Lack of visualization of the gallbladder. We will have the patient return for delayed imaging. At this point acute cholecystitis versus chronic cholecystitis. Dontrell Mcqueen Jr., MD ADDENDUM: 24-hour delayed imaging shows activity within the gallbladder. This would be consistent with chronic cholecystitis. Dontrell Mcqueen Jr., MD Liver Ultrasound 02/20/17 0000 Signed Impressions: Service Date/Time: Monday, February 20, 2017 10:51 - CONCLUSION: Gallstones and gallbladder wall thickening. There is no intrahepatic biliary duct dilatation. Rylan Wang MD FACR Renal Ultrasound 02/19/17 0000 Signed Impressions: Service Date/Time: February 17:19 - CONCLUSION: No evidence of hydronephrosis. Indwelling Scott catheter with collapsed bladder in thickened bladder wall. Cal Tomlinson MD Objective Remarks GENERAL: WD WN on RA. Patient with irregular breathing pattern ? apnea vs central NECK: Trachea midline. No JVD. Stridor CARDIOVASCULAR: Regular rate and rhythm. Systolic murmur noted RESPIRATORY: No accessory muscle use. Decreased Breath sounds equal bilaterally. GASTROINTESTINAL: Abdomen soft, non-tender, nondistended. MUSCULOSKELETAL: Extremities without clubbing, cyanosis, or edema. No obvious deformities. NEUROLOGICAL: Lethargic with generalized weakness following simple commands Procedures [facility] Problem List: (1) Acute metabolic encephalopathy ICD Code: G93.41 - Metabolic encephalopathy (2) Altered mental status ICD Code: R41.82 - Altered mental status, unspecified Status: Acute (3) DKA (diabetic ketoacidoses) ICD Code: E13.10 - Other specified diabetes mellitus with ketoacidosis without coma Status: Resolved (4) Non-STEMI (non-ST elevated myocardial infarction) ICD Code: I21.4 - Non-ST elevation (NSTEMI) myocardial infarction Status: Acute (5) Dehydration with hypernatremia ICD Code: E87.0 - Hyperosmolality and hypernatremia Status: Resolved (6) Sepsis ICD Code: A41.9 - Sepsis, unspecified organism Status: Acute (7) UTI (urinary tract infection) ICD Code: N39.0 - Urinary tract infection, site not specified Status: Acute (8) Acute renal failure ICD Code: N17.9 - Acute kidney failure, unspecified Status: Acute (9) Hyperglycemia ICD Code: R73.9 - Hyperglycemia, unspecified Status: Acute (10) Lactic acidemia ICD Code: E87.2 - Acidosis (11) Transaminitis ICD Code: R74.0 - Nonspecific elevation of levels of transaminase and lactic acid dehydrogenase [LDH] (12) Respiratory insufficiency ICD Code: R06.89 - Other abnormalities of breathing Assessment and Plan Acute encephalopathy, multifactorial. Recent episode likely secondary to metabolic derangement during hemodialysis. Evaluated by neurology recommended aspirin. He is worse after dialysis yesterday also noted to have irregular breathing pattern though saturating well on room air. Has stridor. Apnea vs cental? -repeated CT with no acute abnormality. -Treat agitation with when necessary Haldol -rpt EEG. Carotid sonogram showed left carotid occlusion and 50% stenosis on the right carotid. Patient on aspirin. Patient on statin currently on hold because of transaminitis. Telemetry shows nonsustained V. tach but was asymptomatic during the episode. Holter monitor results as follows normal Sinus rhythm with an average heart rate of 86 beats per minute. There were periods of sinus tachycardia up to 124 beats per minute at 9:10pm. There were 3,693 PVCs, 51 cycles of ventricular bigeminy, 419 ventricular couplets and 14 runs of wide complex tachycardia, the longest being 3 beats with a maximum heart rate of 145 beats per minute. The 3 beat runs of wide complex tachycardia are polymorphic. There are no PACs. -Sleep study outpatient -Obtain x-ray of the neck and continue nebulization Respiratory insufficiency - keep on oxygen as needed to keep O2 sat >90% - continue neb treatment. elevated troponin Hypertension cardiomyopathy - echo with EF 25% - Aspirin - Metoprolol 25 mg every 8 hours. Unable to start MILDRED inhibitor secondary to acute kidney injury - Avoid statins due to transaminitis - evaluated by cardiology. Transaminitis chronic cholecystitis - Monitor liver enzymes Acute kidney injury superimposed on chronic kidney disease Severe dehydration - Baseline creatinine 1.8 to 2. Acute worsening secondary to severe dehydration , ATN and DKA - Monitor renal function closely. - Creatinine is rising with episodes of confusion likely secondary to uremia. Nephrology to resume hemodialysis Probable sepsis UTI -- one bottle of the blood cultures with staph coag. negative-likely contamination. -ID consult appreciated status post Levaquin and Flagyl until March 05. diarrhea- stool negative for c-diff. Anemia thrombocytopenia from Sepsis/DIC -heparin on hold. -hematology following. -Monitor CBC. DKA-resolved but hyperglycemic hypoglycemic episodes- this has resolved. -continue sliding scale coverage. -adjust levemir, A1c 10 -continue to monitor for hypoglycemia FEN. Calorie ct to be completed tomorrow. diet advanced. Discussed with daughter regarding possible PEG Prn IVF monitor for overload PROPH: - Bilateral lower extremity SCDs. hold Heparin as noted above. Discharge Planning Not stable for dc is clinically worse. Problem Qualifiers (1) Altered mental status: Qualified Codes: R41.82 - Altered mental status, unspecified (2) DKA (diabetic ketoacidoses): (3) Sepsis: Qualified Codes: A41.9 - Sepsis, unspecified organism (4) UTI (urinary tract infection): (5) Acute renal failure: Qualified Codes: N17.9 - Acute kidney failure, unspecified Isrrael Tamayo MD Mar 05, 2017 12:32
[2017-03-05] MEDS: SODIUM CHLOR 0.9% 1000 ML INJ 1,000 ML IV PRN ×2 (14:38)
--- NOTE | 2017-03-05 14:57 | HHI.NPPN ---
Subjective General Problems: Mebatolic Acidosis Renal Failure: Chronic, Acute Interval History He was dialyzed yesterday without fluid removal. Labs from today are not available, he is a hard stick. The daughter is concerned about his mental status. He has been intermittently confused since arrival. Urine output may be decreasing. (Gely Dill) Review of Systems General Constitutional: Fatigue (Gely Dill) Objective Data Data Vital Signs Date Time Temp Pulse Resp B/P (MAP) Pulse Ox O2 Delivery O2 Flow Rate FiO2 03/05/17 07:57 96 21 03/05/17 04:00 99 Room Air 21 03/05/17 04:00 98.8 83 22 114/58 (76) 100 03/05/17 00:00 98.1 87 20 111/56 (74) 100 03/05/17 00:00 99 Room Air 21 03/04/17 22:00 88 03/04/17 21:47 100 03/04/17 20:00 99 Room Air 21 03/04/17 20:00 98.8 89 20 114/62 (79) 100 03/04/17 16:00 98.3 93 24 116/69 (85) 96 (Gely Dill) -: 03/03/17 2151 03/04/17 1104 Tubes & Lines: Vas-Cath Drip Comment None (Gely Dill) Physical Exam General Appearance: No Acute Distress, Comfortable, Malnourished Appearance Remarks Disheveled, confused, combative at times (Gely Dill) Eyes Eye Exam: Pupils Equal (Gely Dill) Throat Throat Exam: Oral Mucosa [place] & Moist (Gely Dill) Neck Neck Exam: Neck Supple (Gely Dill) Pulmonary Resp Exam: Breath Sounds Equal, No Distress, Rhonchi, Decreased Bases (Gely Dill) Cardiology CV Exam: Regular, Normal Sinus Rhythm, Good Perfusion (Gely Dill) Gastrointestinal/Abdomen GI Exam: Soft, Non-Tender, Bowel Sounds Present (Gely Dill) Genitourinary Exam: Bladder Non-Palpable (Gely Dill) Musculoskeletal MS Exam: Joints Intact, Normal Tone, Unable to Ambulate (Gely Dill) Integumentary Skin Exam: Clear, Warm, Dry, Intact (Gely Dill) Extremeties Extremities Exam: No Edema, Pedal Pulses Palpable (Gely Dill) Neurologic Neuro Exam: Awake, Moving All Extremities Neuro Remarks mumbles at times (Gely Dill) Assessment/Plan Discussed Condition With: Patient Assessment Summary: HERVE/Acute Renal Failure, Acute Tubular Necrosis, Diabetes Mellitus Electrolyte Assessment: Metabolic Acidosis Problem List: (1) Acute renal failure ICD Codes: N17.9 - Acute kidney failure, unspecified Status: Acute Plan: This patient has underlying renal impairment, creatinine 1.8-2 at baseline He has 1.2 g proteinuria, which 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 HERVE from ATN secondary to dehydration, sepsis, and DKA Vascath placed and HD started 02/21 Dialyzed Thursday without fluid removal as he was confused, renal indices were increasing Labs from today are not available, repeat in AM Urine output may be decreasing, bladder scan ordered with placement of valenzuela catheter if needed HD in AM if needed We are hopeful he will recover his renal function Keep vascath in for the time being, secure if needed to prevent dislodgement Oral intake has been poor, nursing to assist with nutrition Avoid nephrotoxic agents (2) DKA (diabetic ketoacidoses) ICD Codes: E13.10 - Other specified diabetes mellitus with ketoacidosis without coma Status: Resolved Plan: A1c 10 DKA resolved, Diabetic control improved, continue to adjust insulin with primary team. (3) Sepsis ICD Codes: A41.9 - Sepsis, unspecified organism Status: Acute Plan: Resolving He is on Levaquin 1/2 blood cultures with staph hominis, likely contaminant HIDA scan taken, unable to visualize GB, results showing chronic cholecystitis (4) Elevated troponin ICD Codes: R74.8 - Abnormal levels of other serum enzymes Plan: cardiology has evaluated suspect demand ischemia as etiology of elevated troponin levels 2D echo shows EF 25% (5) Dehydration with hypernatremia ICD Codes: E87.0 - Hyperosmolality and hypernatremia Status: Resolved Plan: Corrected, monitor for recurrence (6) Altered mental status ICD Codes: R41.82 - Altered mental status, unspecified Status: Acute Plan: May not be due to uremia, consider other causes Plan (Gely Dill) Plan patient was seen and examined. His renal function is poor, urine output has declined. He was dialyzed yesterday. He has been started on IVF. Prognosis is guarded. Dialysis again tomorrow. (Mc Quintanilla MD) Problem Qualifiers (1) Acute renal failure: Qualified Codes: N17.9 - Acute kidney failure, unspecified (2) DKA (diabetic ketoacidoses): (3) Sepsis: Qualified Codes: A41.9 - Sepsis, unspecified organism (4) Altered mental status: Qualified Codes: R41.82 - Altered mental status, unspecified Gely Dill Mar 05, 2017 14:57 Mc Quintanilla MD Mar 05, 2017 16:42
[2017-03-05] MEDS: RESP: ALBUTEROL 2.5 MG/IPRATROPIUM 0.5 MG NEB (SCH) NEB ×4 (15:00→21:09)
--- NOTE | 2017-03-05 16:09 | RADRPT ---
EXAM DATE/TIME: 03/05/2017 15:18 [facility] COMPARISON: No previous studies available for comparison. INDICATIONS : Possible foreign body, stridor MEDICAL HISTORY : Hypertension. Cardiovascular disease. Diabetes mellitus type II. SURGICAL HISTORY : Appendectomy. ENCOUNTER: Initial ACUITY: 1 day PAIN SCORE: Non-responsive. LOCATION: Bilateral neck FINDINGS: 4 images of the soft tissues of the neck were the best obtainable. The patient could not follow instr uctions. Motion artifact degrades the exam. Paraspinal soft tissues are normal. No thickening of the epiglottis or aryepiglottic folds. No radiopaque foreign body observed. A degenerative cervical spine . Right-sided dialysis catheter. CONCLUSION: Limited exam. No acute abnormality. Dontrell Mcqueen Jr., MD on March 05, 2017 at 16:06 Board Certified Radiologist. This report was verified electronically.
--- NOTE | 2017-03-05 16:32 | MG ---
cc: JADA OSORIO M.D. Lab No: [id number] Date: 03/05/2017 Age: 77 Sex: M Race: DATE OF : [address] Tamayo. Room number 1433, awake, drowsy, asleep, photic only. Stops breathing frequently during the EEG. History of sleep apnea. EEG 02/27/17, awake and drowsy study, generalized slowing, indicative of moderate to severe encephalopathy. This is a repeat study. The patient is more confused. DESCRIPTION OF RECORD There is overall background slowing noted between 2-3 Hz. The patient is noted to be breathing heavily at one point and then has some apneic episodes. However, predominant fill of low theta frequency, a lot of body movement artifact. Photic stimulation, minimal driving response. IMPRESSION Abnormal EEG due to moderate encephalopathic process without any epileptiform features, concerning would be the respiratory issues described by the dialysis patient care technician should be assessed if not already done so. Clinical correlation. MD MICHAEL Blankenship/CLOVIS /3:42 PM /4:11 PM
--- NOTE | 2017-03-05 16:32 | MG ---
cc: JADA OSORIO M.D. Lab No: [id number] Date: 03/05/2017 Age: 77 Sex: M Race: DATE OF : [address] Tamayo. Room number 1433, awake, drowsy, asleep, photic only. Stops breathing frequently during the EEG. History of sleep apnea. EEG 02/27/17, awake and drowsy study, generalized slowing, indicative of moderate to severe encephalopathy. This is a repeat study. The patient is more confused. DESCRIPTION OF RECORD There is overall background slowing noted between 2-3 Hz. The patient is noted to be breathing heavily at one point and then has some apneic episodes. However, predominant fill of low theta frequency, a lot of body movement artifact. Photic stimulation, minimal driving response. IMPRESSION Abnormal EEG due to moderate encephalopathic process without any epileptiform features, concerning would be the respiratory issues described by the biomedical technician should be assessed if not already done so. Clinical correlation. MD MICHAEL Blankenship/CLOVIS /3:42 PM /4:11 PM
--- NOTE | 2017-03-05 16:32 | MG ---
cc: JADA OSORIO M.D. Lab No: [id number] Date: 03/05/2017 Age: 77 Sex: M Race: DATE OF : [address] Tamayo[address] Room number 1433, awake, drowsy, asleep, photic only. Stops breathing frequently during the EEG. History of sleep apnea. EEG 02/27/17, awake and drowsy study, generalized slowing, indicative of moderate to severe encephalopathy. This is a repeat study. The patient is more confused. DESCRIPTION OF RECORD There is overall background slowing noted between 2-3 Hz. The patient is noted to be breathing heavily at one point and then has some apneic episodes. However, predominant fill of low theta frequency, a lot of body movement artifact. Photic stimulation, minimal driving response. IMPRESSION Abnormal EEG due to moderate encephalopathic process without any epileptiform features, concerning would be the respiratory issues described by the airdrop systems technician should be assessed if not already done so. Clinical correlation. MD MICHAEL Blankenship/CLOVIS /3:42 PM /4:11 PM
[2017-03-05] MEDS: DEXTROSE 50% IN WATER 50 ML VIAL(D50) IV PUSH PRN (17:48)
--- NOTE | 2017-03-05 18:06 | RADRPT ---
EXAM DATE/TIME: 03/05/2017 18:18 [facility] COMPARISON: CHEST SINGLE AP, February 27, 2017, 13:44. INDICATIONS : Wheezing. MEDICAL HISTORY : Congestive heart failure. SURGICAL HISTORY : None. ENCOUNTER: Initial ACUITY: 1 day PAIN SCORE: Non-responsive. LOCATION: Bilateral chest FINDINGS: A single portable frontal view of the chest shows bilateral pleural effusions and bibasilar pulmonary infiltrates. Heart is at the upper limits of normal in terms of size. Dialysis catheter overlies the right chest. Bony structures are unremarkable. CONCLUSION: Bilateral pleural effusions and bibasilar infiltrates similar to the prior exam. Radiographic pattern consistent with fluid overload. Dontrell Mcqueen Jr., MD on March 05, 2017 at 18:03 Board Certified Radiologist. This report was verified electronically.
[2017-03-05] MEDS ORDERED: DEXT 5%-NACL 0.9% 1000 ML INJ 1,000 ML IV SCH ×2 (18:45)
[2017-03-05 20:05] LABS: ALBUMIN 2.5 GM/DL (3.4-5.0); CALCIUM 8.3 MG/DL (8.5-10.1); CREATININE 4.17 MG/DL (0.60-1.30); PHOSPHORUS 5.1 MG/DL (2.5-4.9)
[2017-03-05] MEDS: diphenhydrAMINE HCL 25 MG CAP PO PRN ×2 (21:35)
[2017-03-05] MEDS ORDERED: SODIUM POLYSTYRENE SULFONATE 30 GM/120 ML ENEMA RECTAL ONE ×2 (22:45)
[2017-03-05 23:17] LABS: AUTOMATED NEUTROPHIL # 6.1 TH/MM3 (1.8-7.7); BASOPHIL % 0.5 % (0.0-2.0); EOSINOPHIL % 0.2 % (0.0-4.0); HEMATOCRIT 26.4 % (39.0-51.0); HEMOGLOBIN 8.4 GM/DL (13.0-17.0); LYMPH % 10.6 % (9.0-44.0); LYMPHOCYTE # 0.9 TH/MM3 (1.0-4.8); MEAN CELL VOLUME 92.4 FL (80.0-100.0); MEAN CORPUSCULAR HEMOGLOBIN 29.5 PG (27.0-34.0); MEAN PLATELET VOLUME 9.6 FL (7.0-11.0); MONO % 14.7 % (0.0-8.0); MONOCYTE # 1.2 TH/MM3 (0-0.9); PLATELET COUNT 207 TH/MM3 (150-450); RED BLOOD COUNT 2.85 MIL/MM3 (4.50-5.90); RED CELL DISTRIBUTION WIDTH 17.4 % (11.6-17.2); WHITE BLOOD COUNT 8.3 TH/MM3 (4.0-11.0)
[2017-03-06] VITALS (14 sets, daily range): BP systolic 97–111; BP diastolic 52–63; PULSE 77–90; RESP 19–31; TEMP 97.6–98.3; O2SAT 92–100
[2017-03-06] MEDS: RESP: ALBUTEROL 2.5 MG/IPRATROPIUM 0.5 MG NEB (PRN) INH ×2 (00:46)
[2017-03-06] MEDS: CHLORHEXIDINE GLUCONATE 2 % 1 PACK (2 CLOTHS) TOP SCH ×2 (04:00)
[2017-03-06] MEDS: DEXTROSE 50% IN WATER 50 ML VIAL(D50) IV PUSH PRN (04:39)
[2017-03-06] MEDS: METOPROLOL TARTRATE 25 MG TAB PO SCH ×6 (05:02→21:32)
[2017-03-06] MEDS ORDERED: FUROSEMIDE 20 MG/2 ML VIAL IV SCH ×2 (06:30)
[2017-03-06] MEDS: INSULIN DETEMIR 100 UNITS/ML VIAL SQ SCH ×2 (08:00)
[2017-03-06] MEDS: INSULIN ASPART SUPPLEMENTAL SCALE SQ SCH ×8 (08:00→20:43)
[2017-03-06] MEDS: RESP: ALBUTEROL 2.5 MG/IPRATROPIUM 0.5 MG NEB (SCH) NEB ×6 (08:12→20:30)
[2017-03-06] MEDS: SODIUM CHLORIDE 0.9% FLUSH 10 ML FLUSH IV FLUSH SCH ×4 (08:12→20:43)
[2017-03-06] MEDS: ASPIRIN EC 81 MG TABEC PO SCH ×2 (08:13)
[2017-03-06] MEDS: DOCUSATE SODIUM 50 MG/SENNA 8.6 MG TAB PO SCH ×4 (08:13→20:43)
[2017-03-06] MEDS: LACTOBACILLUS ACIDOPHILUS TAB PO SCH ×6 (08:13→17:46)
--- NOTE | 2017-03-06 10:20 | HHI.NPPN ---
Subjective General Problems: Mebatolic Acidosis Renal Failure: Chronic, Acute Interval History Patient's status has declined. He is mostly obtunded with irregular respirations , agonal at times. Moved to [facility]. He has NG tube in, minimal to no PO intake for past 1-2 days, tube feeding to be started. His vascath was dislodged inadvertently by a visitor. Had some bleeding now more anemic. He is anuric. Hyperkalemic yesterday. Repeat labs drawn and sent. (Gely Dill) Review of Systems General General Remarks unable to evaluate (Gely Dill) Objective Data Data Vital Signs Date Time Temp Pulse Resp B/P (MAP) Pulse Ox O2 Delivery O2 Flow Rate FiO2 03/06/17 08:12 100 21 03/06/17 04:00 100 Room Air 3.00 21 03/06/17 02:06 99/56 (70) 03/06/17 00:30 97.6 85 19 97/57 (70) 94 03/06/17 00:00 Room Air 03/05/17 21:30 100 03/05/17 21:18 79 24 103/66 (78) 100 03/05/17 20:00 80 03/05/17 20:00 100 Room Air 3.00 21 03/05/17 20:00 97.3 80 20 110/57 (74) 100 03/05/17 16:00 98.7 77 24 120/60 (80) 97 03/05/17 12:00 97.6 75 24 130/59 (82) 100 (Gely Dill) -: 03/05/17223403/05/17 1930 Imaging Last 72 hours Impressions Soft Tissue Neck X-Ray 03/05/17 0000 Signed Impressions: Service Date/Time: February 15:18 - CONCLUSION: Limited exam. No acute abnormality. Dontrell Mcqueen Jr., MD Chest X-Ray 03/05/17 0000 Signed Impressions: Service Date/Time: February 18:18 - CONCLUSION: Bilateral pleural effusions and bibasilar infiltrates similar to the prior exam. Radiographic pattern consistent with fluid overload. Dontrell Mcqueen Jr., MD Drip Comment None (Gely Dill) Physical Exam General Appearance: Malnourished Appearance Remarks Disheveled, obtunded, grunting respirations; restless at times (Gely Dill) Eyes Eye Exam: Pupils Equal, Pupils Reactive (Gely Dill) Throat Throat Exam: Oral Mucosa [place] & Moist (Gely Dill) Neck Neck Exam: Neck Supple (Gely Dill) Pulmonary Resp Exam: No Distress, Rhonchi, Decreased Bases Resp Remarks irregular in depth and rate; agonal periods he responds to sternal rub (Gely Dill) Cardiology CV Exam: Regular, Normal Sinus Rhythm, Good Perfusion (Gely Dill) Gastrointestinal/Abdomen GI Exam: Soft, Non-Tender, Bowel Sounds Present (Gely Dill) Genitourinary Exam: Bladder Non-Palpable (Gely Dill) Musculoskeletal MS Exam: Joints Intact, Normal Tone, Unable to Ambulate (Gely Dill) Integumentary Skin Exam: Clear, Warm, Dry, Intact (Gely Dill) Extremeties Extremities Exam: No Edema, Pedal Pulses Palpable (Gely Dill) Neurologic Neuro Exam: Moving All Extremities, Obtunded (Gely Dill) VTE Prophylaxis Device: SCDs (Gely Dill) Assessment/Plan Discussed Condition With: Daughter Assessment Summary: HERVE/Acute Renal Failure, Acute Tubular Necrosis, Diabetes Mellitus Electrolyte Assessment: Hyperkalemia Problem List: (1) Acute renal failure ICD Codes: N17.9 - Acute kidney failure, unspecified Status: Acute Plan: This patient has underlying renal impairment, creatinine 1.8-2 at baseline He has 1.2 g proteinuria, which 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 HERVE from ATN secondary to dehydration, sepsis, and DKA Vascath placed and HD started 02/21 He was dialyzed in full last Thursday; Thursday was held and Family refused treatment Thursday Dialyzed Thursday without fluid removal Hyperkalemic, needs dialysis today IR has been consulted for temporary catheter placement this morning He has become oligoanuric, bladder scan not suggesting retention chest xray suggesting fluid overload, UF as tolerated with dialysis Start Nephro tube feeding with free water flushes after he returns from IR Obtain daily labs (2) encephalopathy Plan: etiology uncertain thought to be due to uremia but it does not improve with dialysis ABG not suggesting respiratory component consider neurology reevaluation (3) DKA (diabetic ketoacidoses) ICD Codes: E13.10 - Other specified diabetes mellitus with ketoacidosis without coma Status: Resolved Plan: DKA resolved; A1c is 10 Diabetic control has been better, continue to adjust insulin with primary team. (4) Elevated troponin ICD Codes: R74.8 - Abnormal levels of other serum enzymes Plan: cardiology has evaluated suspect demand ischemia as etiology of elevated troponin levels 2D echo shows EF 25% (5) Sepsis ICD Codes: A41.9 - Sepsis, unspecified organism Status: Acute Plan: Resolving He is on Flagyl and Levaquin 1/2 blood cultures with staph hominis, likely contaminant HIDA scan taken, unable to visualize GB, results showing chronic cholecystitis (6) Dehydration with hypernatremia ICD Codes: E87.0 - Hyperosmolality and hypernatremia Status: Resolved Plan: Corrected, monitor for recurrence start free water via NG tube, may need PEG Plan (Gely Dill) Plan patient was seen and examined. Agree with above assessment and plan. (Mc Quintanilla MD) Problem Qualifiers (1) Acute renal failure: Qualified Codes: N17.9 - Acute kidney failure, unspecified (2) DKA (diabetic ketoacidoses): (3) Sepsis: Qualified Codes: A41.9 - Sepsis, unspecified organism Geyl Dill Mar 06, 2017 10:20 Mc Quintanilla MD Mar 10, 2017 11:21
[2017-03-06 10:24] LABS: AUTOMATED NEUTROPHIL # 6.5 TH/MM3 (1.8-7.7); BASOPHIL % 0.3 % (0.0-2.0); HEMATOCRIT 23.1 % (39.0-51.0); HEMOGLOBIN 7.7 GM/DL (13.0-17.0); LYMPH % 8.8 % (9.0-44.0); LYMPHOCYTE # 0.7 TH/MM3 (1.0-4.8); MEAN CELL VOLUME 92.3 FL (80.0-100.0); MEAN CORPUSCULAR HEMOGLOBIN 30.9 PG (27.0-34.0); MEAN CORPUSCULAR HGB CONC 33.5 % (32.0-36.0); MEAN PLATELET VOLUME 8.6 FL (7.0-11.0); MONO % 11.3 % (0.0-8.0); MONOCYTE # 0.9 TH/MM3 (0-0.9); NEUT % 79.6 % (16.0-70.0); PLATELET COUNT 195 TH/MM3 (150-450); RED CELL DISTRIBUTION WIDTH 17.4 % (11.6-17.2); WHITE BLOOD COUNT 8.1 TH/MM3 (4.0-11.0)
[2017-03-06 10:55] LABS: ALBUMIN 2.8 GM/DL (3.4-5.0); BICARBONATE 20.9 MEQ/L (21.0-32.0); CALCIUM 8.4 MG/DL (8.5-10.1); CREATININE 4.84 MG/DL (0.60-1.30); PHOSPHORUS 5.5 MG/DL (2.5-4.9)
--- NOTE | 2017-03-06 12:23 | HHI.PR ---
Subjective Remarks Follow-up encephalopathy. Remains lethargic and confused with continued irregular breathing resembling Israel-Ramirez. Currently on room air. Seen with daughter who wants to continue aggressive care. Discussed with RN Objective Vitals Vital Signs Date Time Temp Pulse Resp B/P (MAP) Pulse Ox O2 Delivery O2 Flow Rate FiO2 03/06/17 08:12 100 21 03/06/17 04:00 100 Room Air 3.00 21 03/06/17 02:06 99/56 (70) 03/06/17 00:30 97.6 85 19 97/57 (70) 94 03/06/17 00:00 Room Air 03/05/17 21:30 100 03/05/17 21:18 79 24 103/66 (78) 100 03/05/17 20:00 80 03/05/17 20:00 100 Room Air 3.00 21 03/05/17 20:00 97.3 80 20 110/57 (74) 100 03/05/17 16:00 98.7 77 24 120/60 (80) 97 I/O 03/05/17 03/05/17 03/05/17 03/06/17 03/06/17 03/06/17 07:00 15:00 23:00 07:00 15:00 23:00 Intake Total 120 ml 315 ml Output Total 1 ml 0 ml Balance 119 ml 315 ml Intake Oral 120 ml 240 ml IV Total 75 ml Output Urine Total 0 ml Stool Total 1 ml Bladder Scan Volume Amount 143 ml # Voids 1 # Bowel Movements 8 Result Diagram: 03/06/17 1006 03/06/17 1006 Imaging Last Impressions Soft Tissue Neck X-Ray 03/05/17 0000 Signed Impressions: Service Date/Time: February 15:18 - CONCLUSION: Limited exam. No acute abnormality. Dontrell Mcqueen Jr., MD Chest X-Ray 03/05/17 0000 Signed Impressions: Service Date/Time: February 18:18 - CONCLUSION: Bilateral pleural effusions and bibasilar infiltrates similar to the prior exam. Radiographic pattern consistent with fluid overload. Dontrell Mcqueen Jr., MD Head CT 02/27/17 0000 Signed Impressions: Service Date/Time: Monday, February 27, 2017 12:47 - CONCLUSION: 1. No acute intracranial abnormality is identified. There are no findings to indicate ischemia and no acute blood products are present. 2. Chronic brain changes include generalized atrophy and periventricular white matter change characteristic of chronic microvascular ischemia. 3. There is trace air within the cavernous sinus bilaterally and in the left superior ophthalmic vein likely related to IV access. Flakito Silva MD Carotid Artery Ultrasound 02/27/17 0000 Signed Impressions: Service Date/Time: Monday, February 27, 2017 14:35 - CONCLUSION: 1. Severe noncalcified plaque in the left carotid bulb and left internal carotid artery with a possible complete occlusion of the left internal carotid artery. No Doppler signal is identified in the vessel which could indicate complete occlusion or severe high-grade stenosis. Consider carotid CTA for further evaluation. 2. There is mild to moderate noncalcified plaque in the right carotid bulb. Less than 50%% stenosis is present within the right internal carotid artery. 3. Please note that the right external carotid artery is not visualized. Flakito Silva MD Hepatobiliary Scan Nuclear Medicine 02/24/17 0000 Signed Impressions: Service Date/Time: Friday, February 24, 2017 12:33 - CONCLUSION: 1. Lack of visualization of the gallbladder. We will have the patient return for delayed imaging. At this point acute cholecystitis versus chronic cholecystitis. Dontrell Mcqueen Jr., MD ADDENDUM: 24-hour delayed imaging shows activity within the gallbladder. This would be consistent with chronic cholecystitis. Dontrell Mcqueen Jr., MD Liver Ultrasound 02/20/17 0000 Signed Impressions: Service Date/Time: Monday, February 20, 2017 10:51 - CONCLUSION: Gallstones and gallbladder wall thickening. There is no intrahepatic biliary duct dilatation. Rylan Wang MD FACR Renal Ultrasound 02/19/17 0000 Signed Impressions: Service Date/Time: February 17:19 - CONCLUSION: No evidence of hydronephrosis. Indwelling Scott catheter with collapsed bladder in thickened bladder wall. Cal Tomlinson MD Objective Remarks GENERAL: WD WN patient who is critically ill. Patient with irregular breathing pattern (tachypnea followed by hypopnea and apnea) SKIN: No rash or lesions NECK: Trachea midline. No JVD. No Stridor CARDIOVASCULAR: Regular rate and rhythm. Systolic murmur noted RESPIRATORY: No accessory muscle use. Decreased Breath sounds equal bilaterally. GASTROINTESTINAL: Abdomen soft, non-tender, nondistended. MUSCULOSKELETAL: Extremities without clubbing, cyanosis, or edema. No obvious deformities. NEUROLOGICAL: Lethargic with generalized weakness not following simple commands Procedures Vascath A/P Problem List: (1) Acute metabolic encephalopathy ICD Code: G93.41 - Metabolic encephalopathy (2) Altered mental status ICD Code: R41.82 - Altered mental status, unspecified Status: Acute (3) DKA (diabetic ketoacidoses) ICD Code: E13.10 - Other specified diabetes mellitus with ketoacidosis without coma Status: Resolved (4) Non-STEMI (non-ST elevated myocardial infarction) ICD Code: I21.4 - Non-ST elevation (NSTEMI) myocardial infarction Status: Acute (5) Dehydration with hypernatremia ICD Code: E87.0 - Hyperosmolality and hypernatremia Status: Resolved (6) Sepsis ICD Code: A41.9 - Sepsis, unspecified organism Status: Acute (7) UTI (urinary tract infection) ICD Code: N39.0 - Urinary tract infection, site not specified Status: Acute (8) Acute renal failure ICD Code: N17.9 - Acute kidney failure, unspecified Status: Acute (9) Hyperglycemia ICD Code: R73.9 - Hyperglycemia, unspecified Status: Acute (10) Lactic acidemia ICD Code: E87.2 - Acidosis (11) Transaminitis ICD Code: R74.0 - Nonspecific elevation of levels of transaminase and lactic acid dehydrogenase [LDH] (12) Respiratory insufficiency ICD Code: R06.89 - Other abnormalities of breathing Assessment and Plan Acute encephalopathy, multifactorial. He is worse with irregular breathing pattern resembling Israel-Ramirez -repeated CT with no acute abnormality. -Treat agitation with when necessary Haldol -rpt EEG without seizure. Carotid sonogram showed left carotid occlusion and 50 % stenosis on the right carotid. Patient on aspirin. Patient on statin currently on hold because of transaminitis. Telemetry shows nonsustained V. tach but was asymptomatic during the episode. Holter monitor results as follows normal Sinus rhythm with an average heart rate of 86 beats per minute. There were periods of sinus tachycardia up to 124 beats per minute at 9:10pm. There were 3,693 PVCs, 51 cycles of ventricular bigeminy, 419 ventricular couplets and 14 runs of wide complex tachycardia, the longest being 3 beats with a maximum heart rate of 145 beats per minute. The 3 beat runs of wide complex tachycardia are polymorphic. There are no PACs. -Check ammonia. Sleep study outpatient -I transferred patient to ICU for close monitoring secondary to worsening encephalopathy with increased risk of decompensation. 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 Image interpreted by me - keep on oxygen as needed to keep O2 sat >90% - continue neb treatment. - Lasix if tolerated - Patient for dialysis today after replacement of Vas-Cath elevated troponin Hypertension cardiomyopathy - echo with EF 25% - Aspirin - Metoprolol 25 mg every 8 hours. Unable to start MILDRED inhibitor secondary to acute kidney injury - Avoid statins due to transaminitis - evaluated by cardiology. Transaminitis chronic cholecystitis - Monitor liver enzymes Acute kidney injury superimposed on chronic kidney disease Severe dehydration - Baseline creatinine 1.8 to 2. Acute worsening secondary to severe dehydration , ATN and DKA - Monitor renal function closely. - Creatinine is rising with episodes of confusion likely secondary to uremia. Nephrology to resume hemodialysis Probable sepsis UTI -- one bottle of the blood cultures with staph coag. negative-likely contamination. -ID consult appreciated status post Levaquin and Flagyl until March 05. diarrhea- stool negative for c-diff. Anemia thrombocytopenia from Sepsis/DIC -heparin on hold. -hematology following. -Monitor CBC. DKA-resolved now hypoglycemic secondary to decreased oral intake -continue sliding scale coverage. -adjust levemir, A1c 10 -continue to monitor for hypoglycemia FEN. Status post Calorie ct. patient with poor by mouth, family agrees NGT and tube feeding. Aspiration precautions. Consult GI for PEG PROPH: - Bilateral lower extremity SCDs. Restart heparin after Vas-Cath Discharge Planning Patient is critically ill we'll continue to monitor in ICU. Critical care time spent 35 minutes Problem Qualifiers (1) Altered mental status: Qualified Codes: R41.82 - Altered mental status, unspecified (2) DKA (diabetic ketoacidoses): (3) Sepsis: Qualified Codes: A41.9 - Sepsis, unspecified organism (4) UTI (urinary tract infection): (5) Acute renal failure: Qualified Codes: N17.9 - Acute kidney failure, unspecified Isrrael Tamayo MD Mar 06, 2017 12:23
--- NOTE | 2017-03-06 14:33 | PD.CONS ---
HPI History of Present Illness This is a 77 year old male who was brought to the emergency room on 02/19/17 for evaluation after being found down in his apartment for an unknown amount of time. He was admitted to the unit for acute metabolic encephalopathy, diabetic ketoacidosis, NSTEMI, dehydration, sepsis, UTI, acute renal failure, respiratory insufficiency, and transaminitis. He remains in the intensive care unit. He has had worsening altered mental status and has not been able to take oral intake for a few days according to the EMR. He has an NGT and is getting Nepro at 55cc/hr, as recommended by the electronic gluing machine operator. The speech therapist is following, but has not been able to evaluate the patient for the past two days secondary to his increased lethargy. The nurse reports that his vascath was dislodged and that he missed his dialysis and is supposed to go down for vascath placement today. GI has been consulted for PEG tube placement. The patient is currently extremely lethargic and confused and unable to provide any history and therefore the history has been obtained from the EMR. PFSH Past Medical History Insulin-dependent diabetes Chronic kidney disease, creatinine 2.2 in 2012 Chronic anemia History of noncompliance Malnutrition History of DKA Hypertension Hyperlipidemia Degenerative joint disease Past Surgical History Appendectomy at age 4 Cataracts Oral surgery Vas-Cath placement 02/21/17 Coded Allergies: No Known Allergies (Verified , 02/19/17) Medications Allergies Coded Allergies Type Severity Reaction Last Updated Verified No Known Allergies 02/19/17 Yes Active Scripts Medications Dose Route/Sig Max Daily Dose Days Date Category Levofloxacin 250 Mg Tablet 250 Mg PO DAILY 02/19/17 Reported Meloxicam 7.5 Mg Tab 7.5 Mg PO DAILY 02/19/17 Reported Hydroxyzine HCl 10 Mg Tab 10 Mg PO TID 02/19/17 Reported Lantus Inj (Insulin Glargine) 1,000 Unit/10 Ml Vial 20 Units SQ HS 02/19/17 Reported Pravastatin 10 Mg Tab 10 Mg PO DAILY 02/19/17 Reported Amlodipine (Amlodipine Besylate) 10 Mg Tab 10 Mg PO DAILY 02/19/17 Reported Family History The patient's mother had diabetes and of an [place] "in her 60s or 70s." The patient's father's history is unknown. There are no other known diabetics in the family. . Social History Unable to obtain Review of Systems Psychiatric: COMPLAINS OF: Confusion ROS Unable to obtain GI Exam Vitals I&O Vital Signs Date Time Temp Pulse Resp B/P (MAP) Pulse Ox O2 Delivery O2 Flow Rate FiO2 03/06/17 08:12 100 21 03/06/17 04:00 100 Room Air 3.00 21 03/06/17 02:06 99/56 (70) 03/06/17 00:30 97.6 85 19 97/57 (70) 94 03/06/17 00:00 Room Air 03/05/17 21:30 100 03/05/17 21:18 79 24 103/66 (78) 100 03/05/17 20:00 80 03/05/17 20:00 100 Room Air 3.00 21 03/05/17 20:00 97.3 80 20 110/57 (74) 100 03/05/17 16:00 98.7 77 24 120/60 (80) 97 I/O 03/05/17 03/05/17 03/05/17 03/06/17 03/06/17 03/06/17 07:00 15:00 23:00 07:00 15:00 23:00 Intake Total 120 ml 315 ml Output Total 1 ml 0 ml Balance 119 ml 315 ml Intake Oral 120 ml 240 ml IV Total 75 ml Output Urine Total 0 ml Stool Total 1 ml Bladder Scan Volume Amount 143 ml # Voids 1 # Bowel Movements 8 Imaging Last Impressions Soft Tissue Neck X-Ray 03/05/17 0000 Signed Impressions: Service Date/Time: February 15:18 - CONCLUSION: Limited exam. No acute abnormality. Dontrell Mcqueen Jr., MD Chest X-Ray 03/05/17 0000 Signed Impressions: Service Date/Time: February 18:18 - CONCLUSION: Bilateral pleural effusions and bibasilar infiltrates similar to the prior exam. Radiographic pattern consistent with fluid overload. Dontrell Mcqueen Jr., MD Head CT 02/27/17 0000 Signed Impressions: Service Date/Time: Monday, February 27, 2017 12:47 - CONCLUSION: 1. No acute intracranial abnormality is identified. There are no findings to indicate ischemia and no acute blood products are present. 2. Chronic brain changes include generalized atrophy and periventricular white matter change characteristic of chronic microvascular ischemia. 3. There is trace air within the cavernous sinus bilaterally and in the left superior ophthalmic vein likely related to IV access. Flakito Silva MD Carotid Artery Ultrasound 02/27/17 0000 Signed Impressions: Service Date/Time: Monday, February 27, 2017 14:35 - CONCLUSION: 1. Severe noncalcified plaque in the left carotid bulb and left internal carotid artery with a possible complete occlusion of the left internal carotid artery. No Doppler signal is identified in the vessel which could indicate complete occlusion or severe high-grade stenosis. Consider carotid CTA for further evaluation. 2. There is mild to moderate noncalcified plaque in the right carotid bulb. Less than 50%% stenosis is present within the right internal carotid artery. 3. Please note that the right external carotid artery is not visualized. Flakito Silva MD Hepatobiliary Scan Nuclear Medicine 02/24/17 0000 Signed Impressions: Service Date/Time: Friday, February 24, 2017 12:33 - CONCLUSION: 1. Lack of visualization of the gallbladder. We will have the patient return for delayed imaging. At this point acute cholecystitis versus chronic cholecystitis. Dontrell Mcqueen Jr., MD ADDENDUM: 24-hour delayed imaging shows activity within the gallbladder. This would be consistent with chronic cholecystitis. Dontrell Mcqueen Jr., MD Liver Ultrasound 02/20/17 0000 Signed Impressions: Service Date/Time: Monday, February 20, 2017 10:51 - CONCLUSION: Gallstones and gallbladder wall thickening. There is no intrahepatic biliary duct dilatation. Rylan Wang MD FACR Renal Ultrasound 02/19/17 0000 Signed Impressions: Service Date/Time: February 17:19 - CONCLUSION: No evidence of hydronephrosis. Indwelling Scott catheter with collapsed bladder in thickened bladder wall. Cal Tomlinson MD Laboratory Test 03/05/17 19:30 03/05/17 21:53 03/05/17 22:35 03/06/17 10:06 Blood Urea Nitrogen 54 MG/DL 58 MG/DL Creatinine 4.17 MG/DL 4.84 MG/DL Random Glucose 87 MG/DL 94 MG/DL Albumin 2.5 GM/DL 2.8 GM/DL Calcium Level 8.3 MG/DL 8.4 MG/DL Phosphorus Level 5.1 MG/DL 5.5 MG/DL Sodium Level 133 MEQ/L 139 MEQ/L Potassium Level 6.3 MEQ/L 4.4 MEQ/L Chloride Level 101 MEQ/L 101 MEQ/L Carbon Dioxide Level 19.0 MEQ/L 20.9 MEQ/L Anion Gap 13 MEQ/L 17 MEQ/L Estimat Glomerular Filtration Rate 17 ML/MIN 14 ML/MIN Blood Gas Puncture Site LT RADIAL Blood Gas Patient Temperature 98.6 Blood Gas HCO3 22 mmol/L Blood Gas Base Excess -1.4 mmol/L Blood Gas Oxygen Saturation 93 % Arterial Blood pH 7.43 Arterial Blood Partial Pressure CO2 34 mmHg Arterial Blood Partial Pressure O2 76 mmHg Arterial Blood Oxygen Content 13.0 Vol % Arterial Blood Carboxyhemoglobin 1.9 % Arterial Blood Methemoglobin 0.7 % Blood Gas Hemoglobin 9.8 G/DL Oxygen Delivery Device RA Blood Gas Inspired Oxygen 21 % White Blood Count 8.3 TH/MM3 8.1 TH/MM3 Red Blood Count 2.85 MIL/MM3 2.50 MIL/MM3 Hemoglobin 8.4 GM/DL 7.7 GM/DL Hematocrit 26.4 % 23.1 % Mean Corpuscular Volume 92.4 FL 92.3 FL Mean Corpuscular Hemoglobin 29.5 PG 30.9 PG Mean Corpuscular Hemoglobin Concent 32.0 % 33.5 % Red Cell Distribution Width 17.4 % 17.4 % Platelet Count 207 TH/MM3 195 TH/MM3 Mean Platelet Volume 9.6 FL 8.6 FL Neutrophils (%) (Auto) 74.0 % 79.6 % Lymphocytes (%) (Auto) 10.6 % 8.8 % Monocytes (%) (Auto) 14.7 % 11.3 % Eosinophils (%) (Auto) 0.2 % 0.0 % Basophils (%) (Auto) 0.5 % 0.3 % Neutrophils # (Auto) 6.1 TH/MM3 6.5 TH/MM3 Lymphocytes # (Auto) 0.9 TH/MM3 0.7 TH/MM3 Monocytes # (Auto) 1.2 TH/MM3 0.9 TH/MM3 Eosinophils # (Auto) 0.0 TH/MM3 0.0 TH/MM3 Basophils # (Auto) 0.0 TH/MM3 0.0 TH/MM3 CBC Comment DIFF FINAL DIFF FINAL Differential Comment Ammonia 13 MCMOL/L Date/Time Source Procedure Growth Status 02/19/17 12:10 Blood Peripheral Aerobic Blood Culture - Final Staphylococcus Hominis-Hominis Complete 02/19/17 12:10 Blood Peripheral Anaerobic Blood Culture - Final NO GROWTH IN 5 DAYS Complete 02/19/17 12:10 Urine Catheterized Urine Urine Culture - Final NO GROWTH IN 48 HOURS. Complete Physical Examination HEENT: Normocephalic; atraumatic; no jaundice. CHEST: Resp mildly labored, expiratory wheezing, diminished bases CARDIAC: RRR ABDOMEN: Soft, nondistended, nontender; no hepatosplenomegaly; bowel sounds are present in all four quadrants. EXTREMITIES: No clubbing, cyanosis, or edema. SKIN: Normal; no rash; no jaundice. INVENTORY ASSOCIATE: Lethargic. Follows simple commands Assessment and Plan Plan ASSESSMENT: - Dysphagia, FEN. Pt in ICU being treated for multiple medical problems- acute metabolic encephalopathy, NSTEMI, dehydration, sepsis, UTI, arf, respiratory insufficiency, and transaminitis. He has had worsening altered mental status and has not been able to take oral intake for a few days according to the EMR. Soup Person recommends Nepro at 55cc/hr, as recommended by the electronic gluing machine operator. He is getting this via NGT. Of note, his vascath was dislodged and the nurse reports that he missed a dialysis tx. Will monitor over weekend. If no improvement in mental status and not able to take po, will consider EGD with PEG on Thursday. PLAN: - Nepro 55cc/hr via NGT - Possible egd with peg tube placement on Thursday if no improvement. - Pt seen and examined by Dr. Stephen and myself and this note is written on his behalf Laquita Huff Mar 06, 2017 14:33
[2017-03-06] MEDS ORDERED: MIDAZOLAM HCL 5 MG/ML VIAL (1 ML) ONE ×2 (14:45)
--- NOTE | 2017-03-06 15:31 | PD.PROCEDR ---
Procedure Note Procedure DX: End Stage Renal Disease OP: 1, Insertion Hemodialysis Catheter (05433) 2. Insertion Triple Lumen Central Venous Line ([id number]) Procedure: Time out performed. Left neck prepped and draped. Using ultrasound guidance the left internal jugular vein was cannulated above the clavicle and a floppy wire advanced. A second puncture was placed 2 cm above the fitsrt puncture and a second floppy wire was inserted. Dilators were passed over the first wire and a 20 cm 14 Fr 2-lumen hemodialysis catheter was passed over the same wire to 19 cm. Lumnes were aspirated, flushed, and packed with heparin 1,000 units/ml. A dilator was passed over the second wire and a three lumen central line was delivered over the same wire to 18 cm. Lumens aspirated and flushed. Dressings were applied after suturing devices to skin with 2-0 silk. CXR ordered, will review. Ismael Patricio MD Mar 06, 2017 15:31
--- NOTE | 2017-03-06 15:31 | PD.PROCEDR ---
Procedure Note Procedure DX: End Stage Renal Disease OP: 1, Insertion Hemodialysis Catheter ([id number]) 2. Insertion Triple Lumen Central Venous Line ([id number]) Procedure: Time out performed. Left neck prepped and draped. Using ultrasound guidance the left internal jugular vein was cannulated above the clavicle and a floppy wire advanced. A second puncture was placed 2 cm above the fitsrt puncture and a second floppy wire was inserted. Dilators were passed over the first wire and a 20 cm 14 Fr 2-lumen hemodialysis catheter was passed over the same wire to 19 cm. Lumnes were aspirated, flushed, and packed with heparin 1,000 units/ml. A dilator was passed over the second wire and a three lumen central line was delivered over the same wire to 18 cm. Lumens aspirated and flushed. Dressings were applied after suturing devices to skin with 2-0 silk. CXR ordered, will review. Ismael Patricio MD Mar 06, 2017 15:31
--- NOTE | 2017-03-06 15:31 | PD.PROCEDR ---
Procedure Note Procedure DX: End Stage Renal Disease OP: 1, Insertion Hemodialysis Catheter ([id number]) 2. Insertion Triple Lumen Central Venous Line ([id number]) Procedure: Time out performed. Left neck prepped and draped. Using ultrasound guidance the left internal jugular vein was cannulated above the clavicle and a floppy wire advanced. A second puncture was placed 2 cm above the fitsrt puncture and a second floppy wire was inserted. Dilators were passed over the first wire and a 20 cm 14 Fr 2-lumen hemodialysis catheter was passed over the same wire to 19 cm. Lumnes were aspirated, flushed, and packed with heparin 1,000 units/ml. A dilator was passed over the second wire and a three lumen central line was delivered over the same wire to 18 cm. Lumens aspirated and flushed. Dressings were applied after suturing devices to skin with 2-0 silk. CXR ordered, will review. Ismael Patricio MD Mar 06, 2017 15:31
[2017-03-06] MEDS ORDERED: MIDAZOLAM HCL 5 MG/ML VIAL (1 ML) IV ONE ×4 (15:45)
--- NOTE | 2017-03-06 16:09 | RADRPT ---
EXAM DATE/TIME: 03/06/2017 16:37 [facility] COMPARISON: CHEST SINGLE AP, March 05, 2017, 18:18. INDICATIONS : Dialysis and central venous catheter positions MEDICAL HISTORY : Cardiovascular disease. Hypertension SURGICAL HISTORY : None. ENCOUNTER: Initial ACUITY: 1 week PAIN SCORE: Non-responsive. LOCATION: Bilateral chest FINDINGS: Interval placement of 2 left-sided central lines, large bore and than before. The tip of both cathet ers are projected over the distal superior vena cava. There is also been placement of a gastric tube . No evidence of pneumothorax. Right internal jugular catheter has been removed. There is persiste nt consolidation in the left lower lung with loss of delineation of the entire left hemidiaphragm and patchy areas of opacity with meniscal lateral interface in the lower right lung suggesting infiltrat e and pleural effusion. The appearance of the lower lungs is unchanged from prior. CONCLUSION: 1. Good position of both left central lines. No evidence of pneumothorax. 2. Stable bilateral lower lung consolidation and right pleural effusion. Dontrell Oneil MD on March 06, 2017 at 16:06 Board Certified Radiologist. This report was verified electronically.
[2017-03-06] MEDS: ALBUMIN 25% INJ 100 ML IV PRN ×4 (17:15→17:16)
[2017-03-06] MEDS: GENTAMICIN SULFATE (DIALYSIS USE ONLY) 20 MG/2 ML VIAL OTHER PRN ×2 (17:15)
--- NOTE | 2017-03-06 18:11 | HHI.PR ---
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 Plan 1. Neuro checks q. 1 hourly. 2. Aspirin 81 milligrams. 3.Continue supportive medical therapy. 4. DVT prophylaxis. 5. SCDs. 6. GI prophylaxis. Diagnosis/Plan: Subjective Subjective Comments reconsulted for worsening mental status Head CT scan with no acute intracranial abnormality EEG revealed an encephalopathic pattern, no ictal activity Seen while being dialyzed Active Medications Current Medications Medications (Trade) Dose Ordered Sig/Fede Route Start Time Stop Time Status Last Admin (Sodium Bicarbonate 8.4% Inj) 100 meq UNSCH PRN IV PUSH 02/19/17 13:45 (Sodium Bicarbonate 8.4% Inj) 50 meq UNSCH PRN IV PUSH 02/19/17 13:45 Sodium Phosphate 15 mmol/Sodium Chloride 105 ml @ 25 mls/hr UNSCH PRN IV 02/19/17 13:45 (NS Flush) 2 ml UNSCH PRN IV FLUSH 02/19/17 14:15 (NS Flush) 2 ml BID IV FLUSH 02/19/17 21:00 03/06/17 08:12 (Heparin Inj) 5,000 units Q12H SQ 02/19/17 17:00 Future hold 02/21/17 16:36 Miscellaneous Information 1 Q361D XX 02/19/17 14:15 (Chlorhexidine 2% Cloth) Taper DAILY@04 TOP 02/20/17 04:00 02/16/18 03:59 02/25/17 02:34 (Chlorhexidine 2% Cloth) 3 pack UNSCH PRN TOP 02/19/17 14:15 (Princess-Colace) 1 tab BID PO 02/19/17 21:00 03/04/17 09:00 (Senokot) 17.2 mg Q12H PRN PO 02/19/17 14:15 (Dulcolax Supp) 10 mg DAILY PRN RECTAL 02/19/17 14:15 (Lactulose Liq) 30 ml DAILY PRN PO 02/19/17 14:15 (Lopressor) 25 mg Q8HR PO 02/19/17 16:30 03/05/17 14:37 (Melatonin) 5 mg HS PRN PO 02/19/17 22:15 03/01/17 22:58 (Ativan Inj) 1 mg Q6H PRN IV PUSH 02/21/17 08:00 Sodium Chloride 1,000 ml @ 0 mls/hr Q0M PRN OTHER 02/21/17 10:55 (Heparin Inj) 8,000 units UNSCH PRN IV FLUSH 02/21/17 11:00 Sodium Chloride 1,000 ml @ 200 mls/hr Q5H PRN IV 02/21/17 10:55 02/21/17 14:48 Sodium Chloride 1,000 ml @ 0 mls/hr Q0M PRN OTHER 02/21/17 10:55 (Mannitol Inj) 12.5 gm UNSCH PRN IV 02/21/17 11:00 02/21/17 14:48 Albumin Human 100 ml @ 60 mls/hr UNSCH PRN IV 02/21/17 11:00 03/06/17 17:16 (NS Flush) 5 ml UNSCH PRN IV FLUSH 02/21/17 11:00 (Heparin Inj) UNSCH PRN .XX 02/21/17 11:00 03/04/17 20:43 (Gentamicin (Dialysis) Inj) 20 mg UNSCH PRN OTHER 02/21/17 11:00 03/06/17 17:15 (Zofran Inj) 4 mg UNSCH PRN IV PUSH 02/21/17 11:00 (Tylenol) 650 mg UNSCH PRN PO 02/21/17 11:00 03/01/17 02:27 (Benadryl) 25 mg UNSCH PRN PO 02/21/17 11:00 03/05/17 21:35 (Nitrostat Sl) 0.4 mg UNSCH PRN SL 02/21/17 11:00 (Catapres) 0.1 mg UNSCH PRN PO 02/21/17 11:00 (Gelfoam 12 Mm/7 Mm Top) 1 foam UNSCH PRN TOP 02/21/17 11:00 (Duoneb Neb) 1 ampule Q2HR NEB PRN INH 02/22/17 14:00 03/06/17 00:46 (D50w (Vial) Inj) 50 ml UNSCH PRN IV PUSH 02/24/17 08:30 03/06/17 04:39 (Glucagon Inj) 1 mg UNSCH PRN OTHER 02/24/17 08:30 (Lactinex) 1 tab TID PO 02/25/17 13:00 03/05/17 14:37 (NovoLOG SUPPLEMENTAL SCALE) 1 ACHS SLIDING SCALE SQ 02/27/17 12:00 03/03/17 20:46 (Brethine Inj) 1 mg UNSCH PRN SQ 02/27/17 13:30 (Ecotrin Ec) 81 mg DAILY PO 02/28/17 09:00 03/05/17 09:36 (Duoneb Neb) 1 ampule TID NEB NEB 03/05/17 14:00 03/06/17 11:31 (Levemir Inj) 4 units DAILYAC SQ 03/06/17 08:00 Allergies Allergies Coded Allergies No Known Allergies ([id number]) Review of Systems All other ROS: ROS reviewed as documented in chart Exam I&O / VS 03/06/17 03/06/17 03/07/17 15:00 23:00 07:00 Intake Total 200 ml Balance 200 ml IV Total 200 ml Vital Signs Date Time Temp Pulse Resp B/P (MAP) Pulse Ox O2 Delivery O2 Flow Rate FiO2 03/06/17 17:54 97.9 85 26 98/61 100 03/06/17 08:12 100 21 03/06/17 08:00 79 03/06/17 07:00 100 Room Air 3.00 21 03/06/17 04:00 100 Room Air 3.00 21 03/06/17 02:06 99/56 (70) 03/06/17 00:30 97.6 85 19 97/57 (70) 94 03/06/17 00:00 Room Air 03/05/17 21:30 100 03/05/17 21:18 79 24 103/66 (78) 100 03/05/17 20:00 80 03/05/17 20:00 100 Room Air 3.00 21 03/05/17 20:00 97.3 80 20 110/57 (74) 100 Exam Comments GENERAL: Awake, lethargic, sleepy, but arousable HEAD, EYES, EARS, NOSE, THROAT: Atraumatic, normocephalic, poor personal hygiene. Intact vision. Intact hearing. NECK: Trachea is midline. No signs of meningeal irritation. CARDIOVASCULAR: Tachycardia. RESPIRATORY: Clear to auscultation. Tachypnea. No wheezes. GASTROINTESTINAL: Soft abdomen. Not distended. MUSCULOSKELETAL: No deformities. No clubbing. NEUROLOGICAL EXAMINATION: awake, lethargic, right facial palsy/chronic, squeezes hands to commands stronger on the left side, Moves extremity on the left side more than the right side. Reflexes 1+ bilateral symmetrical. Plantars are bilaterally downgoing. Objective Radiology Results Last 72 hours Impressions Chest X-Ray 03/06/17 0000 Signed Impressions: Service Date/Time: Monday, March 06, 2017 16:37 - CONCLUSION: 1. Good position of both left central lines. No evidence of pneumothorax. 2. Stable bilateral lower lung consolidation and right pleural effusion. Dontrell Oneil MD Soft Tissue Neck X-Ray 03/05/17 0000 Signed Impressions: Service Date/Time: February 15:18 - CONCLUSION: Limited exam. No acute abnormality. Dontrell Mcqueen Jr., MD Chest X-Ray 03/05/17 0000 Signed Impressions: Service Date/Time: February 18:18 - CONCLUSION: Bilateral pleural effusions and bibasilar infiltrates similar to the prior exam. Radiographic pattern consistent with fluid overload. Dontrell Mcqueen Jr., MD Micro and Labs Laboratory Tests Test 03/05/17 19:30 03/05/17 21:53 03/05/17 22:35 03/06/17 10:06 Blood Urea Nitrogen 54 58 Creatinine 4.17 4.84 Random Glucose 87 94 Albumin 2.5 2.8 Calcium Level 8.3 8.4 Phosphorus Level 5.1 5.5 Sodium Level 133 139 Potassium Level 6.3 4.4 Chloride Level 101 101 Carbon Dioxide Level 19.0 20.9 Anion Gap 13 17 Estimat Glomerular Filtration Rate 17 14 Blood Gas Puncture Site LT RADIAL Blood Gas Patient Temperature 98.6 Blood Gas HCO3 22 Blood Gas Base Excess -1.4 Blood Gas Oxygen Saturation 93 Arterial Blood pH 7.43 Arterial Blood Partial Pressure CO2 34 Arterial Blood Partial Pressure O2 76 Arterial Blood Oxygen Content 13.0 Arterial Blood Carboxyhemoglobin 1.9 Arterial Blood Methemoglobin 0.7 Blood Gas Hemoglobin 9.8 Oxygen Delivery Device RA Blood Gas Inspired Oxygen 21 White Blood Count 8.3 8.1 Red Blood Count 2.85 2.50 Hemoglobin 8.4 7.7 Hematocrit 26.4 23.1 Mean Corpuscular Volume 92.4 92.3 Mean Corpuscular Hemoglobin 29.5 30.9 Mean Corpuscular Hemoglobin Concent 32.0 33.5 Red Cell Distribution Width 17.4 17.4 Platelet Count 207 195 Mean Platelet Volume 9.6 8.6 Neutrophils (%) (Auto) 74.0 79.6 Lymphocytes (%) (Auto) 10.6 8.8 Monocytes (%) (Auto) 14.7 11.3 Eosinophils (%) (Auto) 0.2 0.0 Basophils (%) (Auto) 0.5 0.3 Neutrophils # (Auto) 6.1 6.5 Lymphocytes # (Auto) 0.9 0.7 Monocytes # (Auto) 1.2 0.9 Eosinophils # (Auto) 0.0 0.0 Basophils # (Auto) 0.0 0.0 CBC Comment DIFF FINAL DIFF FINAL Differential Comment Ammonia 13 Date/Time Source Procedure Growth Status 02/19/17 12:10 Blood Peripheral Aerobic Blood Culture - Final Staphylococcus Hominis-Hominis Complete 02/19/17 12:10 Blood Peripheral Anaerobic Blood Culture - Final NO GROWTH IN 5 DAYS Complete 02/19/17 12:10 Urine Catheterized Urine Urine Culture - Final NO GROWTH IN 48 HOURS. Complete Lary Tyson MD Mar 06, 2017 18:11
--- NOTE | 2017-03-06 18:14 | HHI.HCPN ---
Reason for visit a. To assist with evaluation and management of symptoms including: Agitation, restlessness, encephalopathy; dyspnea b. To assist medical decision maker(s) with: better understanding of current medical conditions; weighing benefits/burdens of medical treatment options; making medical treatment decisions. . Subjective/Interval History Patient was transferred to SICU after my visit yesterday due to his altered mental status and abnormal breathing pattern. CXR is abnormal but unchanged. Soft tissue film of the neck did not show any abnormalities that might account for stridor or upper airway wheeze. Patient remains encephalopathic. A new dialysis catheter has been placed. GI has been consulted for PEG placement. At time of my visit, patient arouses to voice/exam but does not fully awaken. Still with strange breathing pattern of multiple deep , wheezy breaths accompanied by restlessness followed by relaxed shallow breathing. Case discussed with Dr. Tamayo. . Family/friend interactions No family at bedside. Dr. Tamayo tells me he was able to speak with family who continue to desire full aggressive care in spite of this setback. . Advance Directives Living Will: Never completed Health Care Surrogate: Never completed Durable Power of Elastic Assembler: Never completed Objective Vital Signs Date Time Temp Pulse Resp B/P (MAP) Pulse Ox O2 Delivery O2 Flow Rate FiO2 03/06/17 08:12 100 21 03/06/17 08:00 79 03/06/17 07:00 100 Room Air 3.00 21 03/06/17 04:00 100 Room Air 3.00 21 03/06/17 02:06 99/56 (70) 03/06/17 00:30 97.6 85 19 97/57 (70) 94 03/06/17 00:00 Room Air 03/05/17 21:30 100 03/05/17 21:18 79 24 103/66 (78) 100 03/05/17 20:00 80 03/05/17 20:00 100 Room Air 3.00 21 03/05/17 20:00 97.3 80 20 110/57 (74) 100 Intake & Output 03/06/17 03/06/17 07:00 19:00 Intake Total 200 ml Balance 200 ml IV Total 200 ml # Voids 1 . Physical Exam CONSTITUTIONAL/GENERAL: This is an elderly, weak,lethargic patient. Audible wheezing vs upper airway stridor. Eyes open for deep wheezy breaths then drifts off with some apneic periods. TUBES/LINES/DRAINS: Vas-Cath left neck, central line left neck, supplemental oxygen, NG tube NECK: Trachea midline. CARDIOVASCULAR: Regular rate and rhythm without murmurs, gallops, or rubs. No JVD. RESPIRATORY/CHEST: Symmetric respirations. Multiple deep wheezy breaths then drifts off with an apneic periods. Lungs are clear -- wheezy sound very much upper airway. GASTROINTESTINAL: Abdomen soft, non-tender, nondistended. No hepato-splenomegaly , or palpable masses. No guarding. Bowel sounds hypoactive GENITOURINARY: Without palpable bladder distension. Condom catheter in place. MUSCULOSKELETAL: Extremities without clubbing, cyanosis, or edema. NEUROLOGICAL: Lethargic but restless during wheezy breathing periods, then lethargic and sleeping during apneic periods. Not able to follow commands . Moving all extremities. PSYCHIATRIC: Difficult to assess due to level of responsiveness today. . Diagnostic Tests Laboratory Laboratory Tests Test 03/03/17 21:51 03/04/17 11:04 03/05/17 19:30 03/05/17 21:53 White Blood Count 5.5 TH/MM3 (4.0-11.0) Red Blood Count 3.16 MIL/MM3 (4.50-5.90) Hemoglobin 9.8 GM/DL (13.0-17.0) Hematocrit 28.9 % (39.0-51.0) Mean Corpuscular Volume 91.3 FL (80.0-100.0) Mean Corpuscular Hemoglobin 31.0 PG (27.0-34.0) Mean Corpuscular Hemoglobin Concent 34.0 % (32.0-36.0) Red Cell Distribution Width 17.1 % (11.6-17.2) Platelet Count 141 TH/MM3 (150-450) Mean Platelet Volume 9.5 FL (7.0-11.0) Neutrophils (%) (Auto) 69.6 % (16.0-70.0) Lymphocytes (%) (Auto) 14.5 % (9.0-44.0) Monocytes (%) (Auto) 14.2 % (0.0-8.0) Eosinophils (%) (Auto) 1.0 % (0.0-4.0) Basophils (%) (Auto) 0.7 % (0.0-2.0) Neutrophils # (Auto) 3.8 TH/MM3 (1.8-7.7) Lymphocytes # (Auto) 0.8 TH/MM3 (1.0-4.8) Monocytes # (Auto) 0.8 TH/MM3 (0-0.9) Eosinophils # (Auto) 0.1 TH/MM3 (0-0.4) Basophils # (Auto) 0.0 TH/MM3 (0-0.2) CBC Comment DIFF FINAL Differential Comment Blood Urea Nitrogen 73 MG/DL (7-18) 54 MG/DL (7-18) Creatinine 4.90 MG/DL (0.60-1.30) 4.17 MG/DL (0.60-1.30) Random Glucose 95 MG/DL (74-106) 87 MG/DL (74-106) Albumin 2.7 GM/DL (3.4-5.0) 2.5 GM/DL (3.4-5.0) Calcium Level 8.3 MG/DL (8.5-10.1) 8.3 MG/DL (8.5-10.1) Phosphorus Level 5.5 MG/DL (2.5-4.9) 5.1 MG/DL (2.5-4.9) Sodium Level 137 MEQ/L (136-145) 133 MEQ/L (136-145) Potassium Level 4.1 MEQ/L (3.5-5.1) 6.3 MEQ/L (3.5-5.1) Chloride Level 102 MEQ/L (98-107) 101 MEQ/L (98-107) Carbon Dioxide Level 24.7 MEQ/L (21.0-32.0) 19.0 MEQ/L (21.0-32.0) Anion Gap 10 MEQ/L (5-15) 13 MEQ/L (5-15) Estimat Glomerular Filtration Rate 14 ML/MIN (>89) 17 ML/MIN (>89) Blood Gas Puncture Site LT RADIAL Blood Gas Patient Temperature 98.6 Blood Gas HCO3 22 mmol/L (22-26) Blood Gas Base Excess -1.4 mmol/L (-2-2) Blood Gas Oxygen Saturation 93 % (90-100) Arterial Blood pH 7.43 (7.380-7.420) Arterial Blood Partial Pressure CO2 34 mmHg (38-42) Arterial Blood Partial Pressure O2 76 mmHg (61-120) Arterial Blood Oxygen Content 13.0 Vol % (12.0-20.0) Arterial Blood Carboxyhemoglobin 1.9 % (0-4) Arterial Blood Methemoglobin 0.7 % (0-2) Blood Gas Hemoglobin 9.8 G/DL (12.0-16.0) Oxygen Delivery Device RA Blood Gas Inspired Oxygen 21 % Test 03/05/17 22:35 03/06/17 10:06 White Blood Count 8.3 TH/MM3 (4.0-11.0) 8.1 TH/MM3 (4.0-11.0) Red Blood Count 2.85 MIL/MM3 (4.50-5.90) 2.50 MIL/MM3 (4.50-5.90) Hemoglobin 8.4 GM/DL (13.0-17.0) 7.7 GM/DL (13.0-17.0) Hematocrit 26.4 % (39.0-51.0) 23.1 % (39.0-51.0) Mean Corpuscular Volume 92.4 FL (80.0-100.0) 92.3 FL (80.0-100.0) Mean Corpuscular Hemoglobin 29.5 PG (27.0-34.0) 30.9 PG (27.0-34.0) Mean Corpuscular Hemoglobin Concent 32.0 % (32.0-36.0) 33.5 % (32.0-36.0) Red Cell Distribution Width 17.4 % (11.6-17.2) 17.4 % (11.6-17.2) Platelet Count 207 TH/MM3 (150-450) 195 TH/MM3 (150-450) Mean Platelet Volume 9.6 FL (7.0-11.0) 8.6 FL (7.0-11.0) Neutrophils (%) (Auto) 74.0 % (16.0-70.0) 79.6 % (16.0-70.0) Lymphocytes (%) (Auto) 10.6 % (9.0-44.0) 8.8 % (9.0-44.0) Monocytes (%) (Auto) 14.7 % (0.0-8.0) 11.3 % (0.0-8.0) Eosinophils (%) (Auto) 0.2 % (0.0-4.0) 0.0 % (0.0-4.0) Basophils (%) (Auto) 0.5 % (0.0-2.0) 0.3 % (0.0-2.0) Neutrophils # (Auto) 6.1 TH/MM3 (1.8-7.7) 6.5 TH/MM3 (1.8-7.7) Lymphocytes # (Auto) 0.9 TH/MM3 (1.0-4.8) 0.7 TH/MM3 (1.0-4.8) Monocytes # (Auto) 1.2 TH/MM3 (0-0.9) 0.9 TH/MM3 (0-0.9) Eosinophils # (Auto) 0.0 TH/MM3 (0-0.4) 0.0 TH/MM3 (0-0.4) Basophils # (Auto) 0.0 TH/MM3 (0-0.2) 0.0 TH/MM3 (0-0.2) CBC Comment DIFF FINAL DIFF FINAL Differential Comment Blood Urea Nitrogen 58 MG/DL (7-18) Creatinine 4.84 MG/DL (0.60-1.30) Random Glucose 94 MG/DL (74-106) Albumin 2.8 GM/DL (3.4-5.0) Calcium Level 8.4 MG/DL (8.5-10.1) Phosphorus Level 5.5 MG/DL (2.5-4.9) Sodium Level 139 MEQ/L (136-145) Potassium Level 4.4 MEQ/L (3.5-5.1) Chloride Level 101 MEQ/L (98-107) Carbon Dioxide Level 20.9 MEQ/L (21.0-32.0) Anion Gap 17 MEQ/L (5-15) Estimat Glomerular Filtration Rate 14 ML/MIN (>89) Ammonia 13 MCMOL/L (11-32) . Result Diagram: 03/06/17 1006 03/06/17 1006 Imaging Last Impressions Chest X-Ray 03/06/17 0000 Signed Impressions: Service Date/Time: Monday, March 06, 2017 16:37 - CONCLUSION: 1. Good position of both left central lines. No evidence of pneumothorax. 2. Stable bilateral lower lung consolidation and right pleural effusion. Dontrell Oneil MD Soft Tissue Neck X-Ray 03/05/17 Signed Impressions: Service Date/Time: February 15:18 - CONCLUSION: Limited exam. No acute abnormality. Dontrell Mcqueen Jr., MD Head CT 02/27/17 Signed Impressions: Service Date/Time: Monday, February 27, 2017 12:47 - CONCLUSION: 1. No acute intracranial abnormality is identified. There are no findings to indicate ischemia and no acute blood products are present. 2. Chronic brain changes include generalized atrophy and periventricular white matter change characteristic of chronic microvascular ischemia. 3. There is trace air within the cavernous sinus bilaterally and in the left superior ophthalmic vein likely related to IV access. Flakito Silva MD Carotid Artery Ultrasound 02/27/17 Signed Impressions: Service Date/Time: Monday, February 27, 2017 14:35 - CONCLUSION: 1. Severe noncalcified plaque in the left carotid bulb and left internal carotid artery with a possible complete occlusion of the left internal carotid artery. No Doppler signal is identified in the vessel which could indicate complete occlusion or severe high-grade stenosis. Consider carotid CTA for further evaluation. 2. There is mild to moderate noncalcified plaque in the right carotid bulb. Less than 50%% stenosis is present within the right internal carotid artery. 3. Please note that the right external carotid artery is not visualized. Flakito Silva MD Hepatobiliary Scan Nuclear Medicine 02/24/17 Signed Impressions: Service Date/Time: Friday, February 24, 2017 12:33 - CONCLUSION: 1. Lack of visualization of the gallbladder. We will have the patient return for delayed imaging. At this point acute cholecystitis versus chronic cholecystitis. Dontrell Mcqueen Jr., MD ADDENDUM: 24-hour delayed imaging shows activity within the gallbladder. This would be consistent with chronic cholecystitis. Dontrell Mcqueen Jr., MD Liver Ultrasound 02/20/17 0000 Signed Impressions: Service Date/Time: Monday, February 20, 2017 10:51 - CONCLUSION: Gallstones and gallbladder wall thickening. There is no intrahepatic biliary duct dilatation. Rylan Wang MD FACR Renal Ultrasound 02/19/17 0000 Signed Impressions: Service Date/Time: February 17:19 - CONCLUSION: No evidence of hydronephrosis. Indwelling Scott catheter with collapsed bladder in thickened bladder wall. Cal Tomlinson MD . Procedures Left subclavian line 02/19/17 Vas-Cath placement 02/21/17 Vas cath placement 03/05/17 Central line placement 03/05/17 . Assessment and Plan Disease Oriented Problem List: (1) encephalopathy, likely due to multiple medical issues, sepsis, renal failure (2) acute renal failure, history of chronic kidney disease; possible ATN (3) elevated transaminases and abnormal HIDA scan Comment: Hepatobiliary scan from 02/24/17 consistent with chronic cholecystitis. LFTs improving but not normal. . 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 One daughter and 3 sons, estranged from the 3 sons. Spiritual: Not spiritual episcopal but daughter does want sound designer visits for him. Legal: The patient lacks capacity for decision-making, and it is uncertain whether he will regain that capacity. He has 4 children, but is estranged from his 3 sons, and they have thus far been unwilling to speak with us or participate in decision-making. Therefore, the patient's daughter Jakub Crawford is his proxy decision-maker. We have made it clear that we are available to speak with any of his sons if they call. Ethical issues impacting care: No known ethical issues. . Important Contacts Daughter/HCP: Jakub Crawford [phone] Granddaughter: Renae Rocha [phone] . Prognosis Patient has been able to improve during the course of the hospitalization, but now having setbacks. Overall clinical picture would suggest high likelihood of ongoing decline and need for recurrent hospitalizations should he survive this one. . . . Code Status: Full Code Plan == FULL CODE - daughter was encouraged by his initial improvement , still sees him as having the potential for recovery and continues to desire full aggressive care. == DECISION-MAKING: The patient lacks capacity for decision-making, and the patient's daughter Jakub Crawford is his proxy decision-maker. == GOALS: Discussion with daughter 02/26/17: She is encouraged by his improving alertness and his ability to communicate now. She says she continues to pray that this will continue getting better and she wants to continue full aggressive care. She also notes that his kidney failure is felt to be due to ATN, and she is hoping that that may eventually resolve also. She has not changed her optimistic outlook in spite of the return to intensive care on and the change in mental status. == SYMPTOMS: * New onset of wheezing/dyspnea described above and accompanied by declining mental status. With lungs clear, reasonable 02 sats, and no abnormalities seen on soft tissue film of the neck, breathing pattent may be from a neurologic etiology. Little help from nebulizers. * Agitation -- appears to be associate with respiratory issues today. == Though CT of brain was done on 02/27, may want to consider repeating brain imaging if breathing pattern does not respond to metabolic improvement to see if breathing pattern might be due to neurologic injury (e.g. stroke). == Palliative care will continue to follow to assist with symptom management and to further evaluate goals of medical treatment as the clinical course evolves. . Attestation To help prompt me to consider important information that might be impacting today's encounter and assessment, information from prior notes written by myself or my colleagues may have been "brought forward" into today's note. My signature on this note, however, is an attestation that I personally performed the exam, history, and/or decision-making noted today, and, unless otherwise indicated, the interactions with patient, family, and staff as well as the review of records all occurred today. I also attest that the listed assessment and stated plan reflect my best clinical judgment today based on the combination of historical information, prior notes, and today's exam/ interactions. When time spent is documented, it refers only to time spent today by the signer, or if indicated, combined time spent today by collaborating physician/nurse practitioner. . Dayo Jarquin MD Mar 06, 2017 18:14
[2017-03-07] VITALS (14 sets, daily range): BP systolic 101–128; BP diastolic 58–71; PULSE 7–88; RESP 18–29; TEMP 97.6–98.8; O2SAT 97–100
[2017-03-07] MEDS: CHLORHEXIDINE GLUCONATE 2 % 1 PACK (2 CLOTHS) TOP SCH ×2 (04:00)
[2017-03-07 04:30] LABS: AUTOMATED NEUTROPHIL # 8.7 TH/MM3 (1.8-7.7); BASOPHIL % 0.2 % (0.0-2.0); HEMATOCRIT 25.9 % (39.0-51.0); HEMOGLOBIN 8.6 GM/DL (13.0-17.0); LYMPH % 4.7 % (9.0-44.0); LYMPHOCYTE # 0.5 TH/MM3 (1.0-4.8); MEAN CELL VOLUME 89.7 FL (80.0-100.0); MEAN CORPUSCULAR HEMOGLOBIN 29.7 PG (27.0-34.0); MEAN CORPUSCULAR HGB CONC 33.1 % (32.0-36.0); MONO % 7.1 % (0.0-8.0); MONOCYTE # 0.7 TH/MM3 (0-0.9); PLATELET COUNT 136 TH/MM3 (150-450); RED BLOOD COUNT 2.88 MIL/MM3 (4.50-5.90); RED CELL DISTRIBUTION WIDTH 17.3 % (11.6-17.2); WHITE BLOOD COUNT 9.9 TH/MM3 (4.0-11.0)
[2017-03-07 04:52] LABS: BICARBONATE 21.8 MEQ/L (21.0-32.0); CALCIUM 8.4 MG/DL (8.5-10.1); CREATININE 3.75 MG/DL (0.60-1.30); PHOSPHORUS 4.9 MG/DL (2.5-4.9)
[2017-03-07] MEDS: HEPARIN SODIUM - SQ 10,000 UNITS/ML VIAL SQ SCH ×4 (04:58→18:37)
[2017-03-07] MEDS: METOPROLOL TARTRATE 25 MG TAB PO SCH ×6 (04:59→21:36)
[2017-03-07] MEDS: INSULIN ASPART SUPPLEMENTAL SCALE SQ SCH ×8 (08:00→20:01)
[2017-03-07] MEDS: INSULIN DETEMIR 100 UNITS/ML VIAL SQ SCH ×2 (08:00)
[2017-03-07] MEDS: RESP: ALBUTEROL 2.5 MG/IPRATROPIUM 0.5 MG NEB (SCH) NEB ×6 (08:08→20:06)
[2017-03-07] MEDS: SODIUM CHLORIDE 0.9% FLUSH 10 ML FLUSH IV FLUSH SCH ×4 (08:08→20:01)
[2017-03-07] MEDS: ASPIRIN EC 81 MG TABEC PO SCH ×2 (08:25)
[2017-03-07] MEDS: LACTOBACILLUS ACIDOPHILUS TAB PO SCH ×6 (08:25→18:38)
[2017-03-07] MEDS: DOCUSATE SODIUM 50 MG/SENNA 8.6 MG TAB PO SCH ×4 (08:25→20:01)
--- NOTE | 2017-03-07 11:47 | HHI.NPPN ---
Subjective General Problems: Mebatolic Acidosis Renal Failure: Chronic, Acute Review of Systems General General Remarks unable to evaluate Objective Data Data Vital Signs Date Time Temp Pulse Resp B/P (MAP) Pulse Ox O2 Delivery O2 Flow Rate FiO2 03/07/17 10:00 81 03/07/17 08:11 100 Nasal Cannula 1.50 03/07/17 08:00 80 03/07/17 08:00 98.7 80 29 115/60 (78) 100 03/07/17 07:00 100 Nasal Cannula 2.00 03/07/17 06:00 79 03/07/17 04:00 97.6 88 24 121/62 (81) 100 03/07/17 04:00 88 03/07/17 02:00 86 03/07/17 00:00 84 03/07/17 00:00 98.0 84 24 108/61 (77) 100 03/06/17 22:00 87 03/06/17 20:30 100 Nasal Cannula 2.00 03/06/17 20:00 90 03/06/17 20:00 98.3 90 24 111/63 (79) 97 03/06/17 19:00 100 Nasal Cannula 03/06/17 18:08 97.9 77 26 100/56 99 03/06/17 18:00 79 03/06/17 17:54 97.9 85 26 98/61 100 03/06/17 16:00 97.9 84 21 111/60 (77) 92 03/06/17 16:00 79 03/06/17 14:00 79 03/06/17 12:00 79 03/06/17 12:00 97.9 88 31 109/52 (71) 100 -: 03/07/17 0410 03/07/17 0410 Drip Comment None Physical Exam General Appearance: Malnourished Eyes Eye Exam: Pupils Equal, Pupils Reactive Throat Throat Exam: Oral Mucosa [place] & Moist Neck Neck Exam: Neck Supple Pulmonary Resp Exam: No Distress, Rhonchi, Decreased Bases Cardiology CV Exam: Regular, Normal Sinus Rhythm, Good Perfusion Gastrointestinal/Abdomen GI Exam: Soft, Non-Tender, Bowel Sounds Present Genitourinary Exam: Bladder Non-Palpable Musculoskeletal MS Exam: Joints Intact, Normal Tone, Unable to Ambulate Integumentary Skin Exam: Clear, Warm, Dry, Intact Extremeties Extremities Exam: No Edema, Pedal Pulses Palpable Neurologic Neuro Exam: Moving All Extremities, Obtunded VTE Prophylaxis Device: SCDs Assessment/Plan Discussed Condition With: Daughter Assessment Summary: HERVE/Acute Renal Failure, Acute Tubular Necrosis, Diabetes Mellitus Electrolyte Assessment: Hyperkalemia Problem List: (1) Acute renal failure ICD Codes: N17.9 - Acute kidney failure, unspecified Status: Acute Plan: This patient has underlying renal impairment, creatinine 1.8-2 at baseline He has 1.2 g proteinuria, which 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 HERVE from ATN secondary to dehydration, sepsis, and DKA Vascath placed and HD started 02/21 He was dialyzed in full last Thursday; Thursday was held and Family refused treatment Thursday Dialyzed Thursday with 1.3 L fluid removal Hyperkalemic, resolved (2) encephalopathy Plan: etiology uncertain thought to be due to uremia but it does not improve with dialysis ABG not suggesting respiratory component consider neurology reevaluation (3) DKA (diabetic ketoacidoses) ICD Codes: E13.10 - Other specified diabetes mellitus with ketoacidosis without coma Status: Resolved Plan: DKA resolved; A1c is 10 Diabetic control has been better, continue to adjust insulin with primary team. (4) Elevated troponin ICD Codes: R74.8 - Abnormal levels of other serum enzymes Plan: cardiology has evaluated suspect demand ischemia as etiology of elevated troponin levels 2D echo shows EF 25% (5) Sepsis ICD Codes: A41.9 - Sepsis, unspecified organism Status: Acute Plan: Resolving He is on Flagyl and Levaquin 1/2 blood cultures with staph hominis, likely contaminant HIDA scan taken, unable to visualize GB, results showing chronic cholecystitis (6) Dehydration with hypernatremia ICD Codes: E87.0 - Hyperosmolality and hypernatremia Status: Resolved Plan: Corrected, monitor for recurrence start free water via NG tube, may need PEG Plan Problem Qualifiers (1) Acute renal failure: Qualified Codes: N17.9 - Acute kidney failure, unspecified (2) DKA (diabetic ketoacidoses): (3) Sepsis: Qualified Codes: A41.9 - Sepsis, unspecified organism Sully Blankenship MD Mar 07, 2017 11:47
--- NOTE | 2017-03-07 14:48 | HHI.PR ---
Subjective Remarks Follow-up encephalopathy. He is more awake and interactive. He is following commands. Speech is garbled however nurse is able to understand, oriented to person, place. Tolerating tube feeding. Regular bowel movement. Objective Vitals Vital Signs Date Time Temp Pulse Resp B/P (MAP) Pulse Ox O2 Delivery O2 Flow Rate FiO2 03/07/17 14:00 80 03/07/17 12:00 98.8 79 18 116/59 (78) 100 03/07/17 12:00 76 03/07/17 10:00 81 03/07/17 08:11 100 Nasal Cannula 1.50 03/07/17 08:00 80 03/07/17 08:00 98.7 80 29 115/60 (78) 100 03/07/17 07:00 100 Nasal Cannula 2.00 03/07/17 06:00 79 03/07/17 04:00 97.6 88 24 121/62 (81) 100 03/07/17 04:00 88 03/07/17 02:00 86 03/07/17 00:00 84 03/07/17 00:00 98.0 84 24 108/61 (77) 100 03/06/17 22:00 87 03/06/17 20:30 100 Nasal Cannula 2.00 03/06/17 20:00 90 03/06/17 20:00 98.3 90 24 111/63 (79) 97 03/06/17 19:00 100 Nasal Cannula 03/06/17 18:08 97.9 77 26 100/56 99 03/06/17 18:00 79 03/06/17 17:54 97.9 85 26 98/61 100 03/06/17 16:00 97.9 84 21 111/60 (77) 92 03/06/17 16:00 79 I/O 03/06/17 03/06/17 03/06/17 03/07/17 03/07/17 03/07/17 07:00 15:00 23:00 07:00 15:00 23:00 Intake Total 210 ml 0 ml Output Total 1300 ml 75 ml Balance -1090 ml -75 ml Intake Oral 0 ml IV Total 200 ml Blood Product IV Normal Saline Flush 10 ml Output Urine Total 0 ml Gastric Drainage Total 75 ml Hemodialysis 1300 ml # Voids 0 # Bowel Movements 2 Result Diagram: 03/07/17 0410 03/07/17 041 Objective Remarks GENERAL: WD WN patient in no distress SKIN: No rash or lesions NECK: Trachea midline. No JVD. No Stridor CARDIOVASCULAR: Regular rate and rhythm. Systolic murmur noted RESPIRATORY: No accessory muscle use. Decreased Breath sounds equal bilaterally. GASTROINTESTINAL: Abdomen soft, non-tender, nondistended. MUSCULOSKELETAL: Extremities without clubbing, cyanosis, or edema. No obvious deformities. NEUROLOGICAL: Less lethargic more interactive answers questions and follows commands. Generalized weakness. Speech is garbled Procedures Vascath 2, central line A/P Problem List: (1) Acute metabolic encephalopathy ICD Code: G93.41 - Metabolic encephalopathy (2) Altered mental status ICD Code: R41.82 - Altered mental status, unspecified Status: Acute (3) DKA (diabetic ketoacidoses) ICD Code: E13.10 - Other specified diabetes mellitus with ketoacidosis without coma Status: Resolved (4) Non-STEMI (non-ST elevated myocardial infarction) ICD Code: I21.4 - Non-ST elevation (NSTEMI) myocardial infarction Status: Acute (5) Dehydration with hypernatremia ICD Code: E87.0 - Hyperosmolality and hypernatremia Status: Resolved (6) Sepsis ICD Code: A41.9 - Sepsis, unspecified organism Status: Acute (7) UTI (urinary tract infection) ICD Code: N39.0 - Urinary tract infection, site not specified Status: Acute (8) Acute renal failure ICD Code: N17.9 - Acute kidney failure, unspecified Status: Acute (9) Hyperglycemia ICD Code: R73.9 - Hyperglycemia, unspecified Status: Acute (10) Lactic acidemia ICD Code: E87.2 - Acidosis (11) Transaminitis ICD Code: R74.0 - Nonspecific elevation of levels of transaminase and lactic acid dehydrogenase [LDH] (12) Respiratory insufficiency ICD Code: R06.89 - Other abnormalities of breathing Assessment and Plan Acute encephalopathy, multifactorial. He is improving after hemodialysis yesterday. His breathing pattern today is regular -repeated CT with no acute abnormality. -Treat agitation with when necessary Haldol -rpt EEG without seizure. Carotid sonogram showed left carotid occlusion and 50 % stenosis on the right carotid. Patient on aspirin. Patient on statin currently on hold because of transaminitis. Telemetry shows nonsustained V. tach but was asymptomatic during the episode. Holter monitor results as follows normal Sinus rhythm with an average heart rate of 86 beats per minute. There were periods of sinus tachycardia up to 124 beats per minute at 9:10pm. There were 3,693 PVCs, 51 cycles of ventricular bigeminy, 419 ventricular couplets and 14 runs of wide complex tachycardia, the longest being 3 beats with a maximum heart rate of 145 beats per minute. The 3 beat runs of wide complex tachycardia are polymorphic. There are no PACs. -Normal ammonia. Sleep study outpatient -Keep patient in ICU for close monitoring today. If he is stable, transferred out tomorrow. 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 Image interpreted by me. Improving - keep on oxygen as needed to keep O2 sat >90% - continue neb treatment. - Lasix if tolerated elevated troponin Hypertension cardiomyopathy - echo with EF 25% - Aspirin - Metoprolol 25 mg every 8 hours. Unable to start MILDRED inhibitor secondary to acute kidney injury - Avoid statins due to transaminitis - evaluated by cardiology. Transaminitis chronic cholecystitis - Monitor liver enzymes Acute kidney injury superimposed on chronic kidney disease Severe dehydration - Baseline creatinine 1.8 to 2. Acute worsening secondary to severe dehydration , ATN and DKA - Monitor renal function closely. - Creatinine is rising with episodes of confusion likely secondary to uremia. Nephrology to manage hemodialysis Probable sepsis UTI -- one bottle of the blood cultures with staph coag. negative-likely contamination. -ID consult appreciated status post Levaquin and Flagyl until March 05. diarrhea- stool negative for c-diff. Anemia thrombocytopenia from Sepsis/DIC -heparin on hold. -hematology following. -Monitor CBC. DKA-resolved now hypoglycemic secondary to decreased oral intake -continue sliding scale coverage. -adjust levemir, A1c 10 -continue to monitor for hypoglycemia FEN. Calorie ct was cancelled by RT pt was not eating. Family agrees NGT and tube feeding. Aspiration precautions. Consulted GI for PEG PROPH: - Bilateral lower extremity SCDs. Restart heparin after Vas-Cath Problem Qualifiers (1) Altered mental status: Qualified Codes: R41.82 - Altered mental status, unspecified (2) DKA (diabetic ketoacidoses): (3) Sepsis: Qualified Codes: A41.9 - Sepsis, unspecified organism (4) UTI (urinary tract infection): (5) Acute renal failure: Qualified Codes: N17.9 - Acute kidney failure, unspecified Isrrael Tamayo MD Mar 07, 2017 14:48
[2017-03-08] VITALS (14 sets, daily range): BP systolic 101–124; BP diastolic 51–68; PULSE 73–82; RESP 18–24; TEMP 97.6–98; O2SAT 92–100
[2017-03-08] MEDS: CHLORHEXIDINE GLUCONATE 2 % 1 PACK (2 CLOTHS) TOP SCH ×2 (04:00)
[2017-03-08] MEDS: HEPARIN SODIUM - SQ 10,000 UNITS/ML VIAL SQ SCH ×4 (05:20→17:39)
[2017-03-08] MEDS: METOPROLOL TARTRATE 25 MG TAB PO SCH ×6 (05:20→22:00)
[2017-03-08 05:54] LABS: AUTOMATED NEUTROPHIL # 8.6 TH/MM3 (1.8-7.7); BASOPHIL % 0.3 % (0.0-2.0); EOSINOPHIL % 0.2 % (0.0-4.0); HEMATOCRIT 26.4 % (39.0-51.0); HEMOGLOBIN 8.9 GM/DL (13.0-17.0); LYMPH % 7.1 % (9.0-44.0); LYMPHOCYTE # 0.7 TH/MM3 (1.0-4.8); MEAN CELL VOLUME 89.8 FL (80.0-100.0); MEAN CORPUSCULAR HEMOGLOBIN 30.1 PG (27.0-34.0); MEAN CORPUSCULAR HGB CONC 33.6 % (32.0-36.0); MEAN PLATELET VOLUME 8.8 FL (7.0-11.0); MONO % 9.2 % (0.0-8.0); MONOCYTE # 0.9 TH/MM3 (0-0.9); NEUT % 83.2 % (16.0-70.0); PLATELET COUNT 164 TH/MM3 (150-450); RED BLOOD COUNT 2.94 MIL/MM3 (4.50-5.90); RED CELL DISTRIBUTION WIDTH 17.5 % (11.6-17.2); WHITE BLOOD COUNT 10.3 TH/MM3 (4.0-11.0)
[2017-03-08 07:07] LABS: BICARBONATE 25.4 MEQ/L (21.0-32.0); CALCIUM 8.5 MG/DL (8.5-10.1); CREATININE 4.81 MG/DL (0.60-1.30); MAGNESIUM 2.2 MG/DL (1.5-2.5); PHOSPHORUS 5.6 MG/DL (2.5-4.9)
[2017-03-08] MEDS: RESP: ALBUTEROL 2.5 MG/IPRATROPIUM 0.5 MG NEB (SCH) NEB ×6 (08:04→19:53)
[2017-03-08] MEDS: SODIUM CHLORIDE 0.9% FLUSH 10 ML FLUSH IV FLUSH SCH ×4 (08:05→22:51)
[2017-03-08] MEDS: DOCUSATE SODIUM 50 MG/SENNA 8.6 MG TAB PO SCH ×4 (08:05→20:11)
[2017-03-08] MEDS: LACTOBACILLUS ACIDOPHILUS TAB PO SCH ×6 (08:21→17:39)
[2017-03-08] MEDS: ASPIRIN EC 81 MG TABEC PO SCH ×2 (08:22)
[2017-03-08] MEDS: INSULIN DETEMIR 100 UNITS/ML VIAL SQ SCH ×2 (08:23)
[2017-03-08] MEDS: INSULIN ASPART SUPPLEMENTAL SCALE SQ SCH ×8 (08:23→23:01)
--- NOTE | 2017-03-08 11:45 | HHI.GIFU ---
Subjective Remarks Lying in bed. Awake. Patient in no apparent distress. Objective Vitals I&O Vital Signs Date Time Temp Pulse Resp B/P (MAP) Pulse Ox O2 Delivery O2 Flow Rate FiO2 03/08/17 10:00 82 03/08/17 08:06 99 Nasal Cannula 1.50 03/08/17 08:00 97.9 81 22 124/63 (83) 100 03/08/17 08:00 81 03/08/17 07:00 100 Nasal Cannula 2.00 03/08/17 06:00 77 03/08/17 04:00 90 Nasal Cannula 2.00 03/08/17 04:00 76 03/08/17 04:00 97.9 76 20 116/68 (84) 100 03/08/17 03:50 100 Nasal Cannula 2.00 03/08/17 02:00 73 03/08/17 00:00 98.0 74 23 101/51 (68) 92 03/08/17 00:00 74 03/07/17 22:00 7 03/07/17 20:07 100 21 03/07/17 20:00 97.9 78 23 101/58 (72) 98 03/07/17 20:00 78 03/07/17 19:00 98 Room Air 03/07/17 18:00 88 03/07/17 16:00 80 03/07/17 16:00 98.4 80 22 128/71 (90) 97 03/07/17 14:00 80 03/07/17 12:00 98.8 79 18 116/59 (78) 100 03/07/17 12:00 76 I/O 03/07/17 03/07/17 03/07/17 03/08/17 03/08/17 03/08/17 07:00 15:00 23:00 07:00 15:00 23:00 Intake Total 0 ml 213 ml 604 ml Output Total 75 ml 0 ml 0 ml Balance -75 ml 213 ml 604 ml Intake Oral 0 ml Tube Feeding 213 ml 504 ml Tube Irrigant 100 ml Output Urine Total 0 ml 0 ml 0 ml Gastric Drainage Total 75 ml 0 ml 0 ml # Voids 0 # Bowel Movements 2 3 2 Laboratory Laboratory Tests Test 03/08/17 05:30 White Blood Count 10.3 Red Blood Count 2.94 Hemoglobin 8.9 Hematocrit 26.4 Mean Corpuscular Volume 89.8 Mean Corpuscular Hemoglobin 30.1 Mean Corpuscular Hemoglobin Concent 33.6 Red Cell Distribution Width 17.5 Platelet Count 164 Mean Platelet Volume 8.8 Neutrophils (%) (Auto) 83.2 Lymphocytes (%) (Auto) 7.1 Monocytes (%) (Auto) 9.2 Eosinophils (%) (Auto) 0.2 Basophils (%) (Auto) 0.3 Neutrophils # (Auto) 8.6 Lymphocytes # (Auto) 0.7 Monocytes # (Auto) 0.9 Eosinophils # (Auto) 0.0 Basophils # (Auto) 0.0 CBC Comment DIFF FINAL Differential Comment Blood Urea Nitrogen 63 Creatinine 4.81 Random Glucose 267 Calcium Level 8.5 Phosphorus Level 5.6 Magnesium Level 2.2 Sodium Level 139 Potassium Level 3.8 Chloride Level 99 Carbon Dioxide Level 25.4 Anion Gap 15 Estimat Glomerular Filtration Rate 14 Date/Time Source Procedure Growth Status 02/19/17 12:10 Blood Peripheral Aerobic Blood Culture - Final Staphylococcus Hominis-Hominis Complete 02/19/17 12:10 Blood Peripheral Anaerobic Blood Culture - Final NO GROWTH IN 5 DAYS Complete 02/19/17 12:10 Urine Catheterized Urine Urine Culture - Final NO GROWTH IN 48 HOURS. Complete Imaging Last Impressions Chest X-Ray 03/06/17 0000 Signed Impressions: Service Date/Time: Monday, March 06, 2017 16:37 - CONCLUSION: 1. Good position of both left central lines. No evidence of pneumothorax. 2. Stable bilateral lower lung consolidation and right pleural effusion. Dontrell Oneil MD Soft Tissue Neck X-Ray 03/05/17 0000 Signed Impressions: Service Date/Time: February 15:18 - CONCLUSION: Limited exam. No acute abnormality. Dontrell Mcqueen Jr., MD Head CT 02/27/17 0000 Signed Impressions: Service Date/Time: Monday, February 27, 2017 12:47 - CONCLUSION: 1. No acute intracranial abnormality is identified. There are no findings to indicate ischemia and no acute blood products are present. 2. Chronic brain changes include generalized atrophy and periventricular white matter change characteristic of chronic microvascular ischemia. 3. There is trace air within the cavernous sinus bilaterally and in the left superior ophthalmic vein likely related to IV access. Flakito Silva MD Carotid Artery Ultrasound 02/27/17 0000 Signed Impressions: Service Date/Time: Monday, February 27, 2017 14:35 - CONCLUSION: 1. Severe noncalcified plaque in the left carotid bulb and left internal carotid artery with a possible complete occlusion of the left internal carotid artery. No Doppler signal is identified in the vessel which could indicate complete occlusion or severe high-grade stenosis. Consider carotid CTA for further evaluation. 2. There is mild to moderate noncalcified plaque in the right carotid bulb. Less than 50%% stenosis is present within the right internal carotid artery. 3. Please note that the right external carotid artery is not visualized. Flakito Silva MD Hepatobiliary Scan Nuclear Medicine 02/24/17 0000 Signed Impressions: Service Date/Time: Friday, February 24, 2017 12:33 - CONCLUSION: 1. Lack of visualization of the gallbladder. We will have the patient return for delayed imaging. At this point acute cholecystitis versus chronic cholecystitis. Dontrell Mcqueen Jr., MD ADDENDUM: 24-hour delayed imaging shows activity within the gallbladder. This would be consistent with chronic cholecystitis. Dontrell Mcqueen Jr., MD Liver Ultrasound 02/20/17 0000 Signed Impressions: Service Date/Time: Monday, February 20, 2017 10:51 - CONCLUSION: Gallstones and gallbladder wall thickening. There is no intrahepatic biliary duct dilatation. Rylan Wang MD FACR Renal Ultrasound 02/19/17 0000 Signed Impressions: Service Date/Time: February 17:19 - CONCLUSION: No evidence of hydronephrosis. Indwelling Scott catheter with collapsed bladder in thickened bladder wall. Cal Tomlinson MD Physical Exam HEENT: Normocephalic. NECK: Neck is supple CHEST: CTA. Decreased breath sounds. CARDIAC: RRR. ABDOMEN: Soft, nondistended, nontender; no hepatosplenomegaly; bowel sounds are present in all four quadrants. EXTREMITIES: No clubbing, cyanosis, or edema. SKIN: Normal; no rash; no jaundice. WELCOME HOSTESS: Awake. Generalized weakness. Assessment and Plan Plan ASSESSMENT: - Dysphagia, FEN. Pt in ICU being treated for multiple medical problems- acute metabolic encephalopathy, NSTEMI, dehydration, sepsis, UTI, arf, respiratory insufficiency, and transaminitis. He has had worsening altered mental status and has not been able to take oral intake for a few days according to the EMR. Self Contained Behavior Unit Teacher recommends Nepro at 55cc/hr, as recommended by the lobster fisherman. He is getting this via NGT. Of note, his vascath was dislodged and the nurse reports that he missed a dialysis tx. Plan for EGD with PEG placement on Thursday. PLAN: - Nepro 55cc/hr via NGT per lobster fisherman - EGD with PEG tube placement on Thursday - Stop TF at [facility] - Obtain consents - Further recommendations to follow based on results of above Patient seen and examined by Dr. Stephen and myself and this note is written on his behalf Libra Spangler Mar 08, 2017 11:45
--- NOTE | 2017-03-08 13:24 | HHI.PR ---
Subjective Remarks Follow-up encephalopathy. He continues to improve more awake and interactive. Oriented to person and place. Tolerating tube feeding. He is stooling. He is not voiding. Discussed with RN Objective Vitals Vital Signs Date Time Temp Pulse Resp B/P (MAP) Pulse Ox O2 Delivery O2 Flow Rate FiO2 03/08/17 12:00 80 03/08/17 12:00 97.9 82 20 106/56 (73) 100 03/08/17 10:00 82 03/08/17 08:06 99 Nasal Cannula 1.50 03/08/17 08:00 97.9 81 22 124/63 (83) 100 03/08/17 08:00 81 03/08/17 07:00 100 Nasal Cannula 2.00 03/08/17 06:00 77 03/08/17 04:00 90 Nasal Cannula 2.00 03/08/17 04:00 76 03/08/17 04:00 97.9 76 20 116/68 (84) 100 03/08/17 03:50 100 Nasal Cannula 2.00 03/08/17 02:00 73 03/08/17 00:00 98.0 74 23 101/51 (68) 92 03/08/17 00:00 74 03/07/17 22:00 7 03/07/17 20:07 100 21 03/07/17 20:00 97.9 78 23 101/58 (72) 98 03/07/17 20:00 78 03/07/17 19:00 98 Room Air 03/07/17 18:00 88 03/07/17 16:00 80 03/07/17 16:00 98.4 80 22 128/71 (90) 97 03/07/17 14:00 80 I/O 03/07/17 03/07/17 03/07/17 03/08/17 03/08/17 03/08/17 07:00 15:00 23:00 07:00 15:00 23:00 Intake Total 0 ml 213 ml 604 ml Output Total 75 ml 0 ml 0 ml Balance -75 ml 213 ml 604 ml Intake Oral 0 ml Tube Feeding 213 ml 504 ml Tube Irrigant 100 ml Output Urine Total 0 ml 0 ml 0 ml Gastric Drainage Total 75 ml 0 ml 0 ml # Voids 0 # Bowel Movements 2 3 2 Result Diagram: 03/08/1752903/08/17529 Objective Remarks GENERAL: WD WN patient in no distress SKIN: No rash or lesions NECK: Trachea midline. No JVD. No Stridor CARDIOVASCULAR: Regular rate and rhythm. Systolic murmur noted RESPIRATORY: No accessory muscle use. Decreased Breath sounds equal bilaterally. GASTROINTESTINAL: Abdomen soft, non-tender, nondistended. MUSCULOSKELETAL: Extremities without clubbing, cyanosis, or edema. No obvious deformities. NEUROLOGICAL: More awake and interactive answers questions and follows commands. Generalized weakness. Speech is garbled but improving Procedures Vascath 2, central line A/P Problem List: (1) Acute metabolic encephalopathy ICD Code: G93.41 - Metabolic encephalopathy (2) Altered mental status ICD Code: R41.82 - Altered mental status, unspecified Status: Acute (3) DKA (diabetic ketoacidoses) ICD Code: E13.10 - Other specified diabetes mellitus with ketoacidosis without coma Status: Resolved (4) Non-STEMI (non-ST elevated myocardial infarction) ICD Code: I21.4 - Non-ST elevation (NSTEMI) myocardial infarction Status: Acute (5) Dehydration with hypernatremia ICD Code: E87.0 - Hyperosmolality and hypernatremia Status: Resolved (6) Sepsis ICD Code: A41.9 - Sepsis, unspecified organism Status: Acute (7) UTI (urinary tract infection) ICD Code: N39.0 - Urinary tract infection, site not specified Status: Acute (8) Acute renal failure ICD Code: N17.9 - Acute kidney failure, unspecified Status: Acute (9) Hyperglycemia ICD Code: R73.9 - Hyperglycemia, unspecified Status: Acute (10) Lactic acidemia ICD Code: E87.2 - Acidosis (11) Transaminitis ICD Code: R74.0 - Nonspecific elevation of levels of transaminase and lactic acid dehydrogenase [LDH] (12) Respiratory insufficiency ICD Code: R06.89 - Other abnormalities of breathing Assessment and Plan Acute encephalopathy, multifactorial. He is improving after hemodialysis. His breathing pattern is now regular -repeated CT with no acute abnormality. -Treat agitation with when necessary Haldol -rpt EEG without seizure. Carotid sonogram showed left carotid occlusion and 50 % stenosis on the right carotid. Patient on aspirin. Patient on statin currently on hold because of transaminitis. Telemetry shows nonsustained V. tach but was asymptomatic during the episode. Holter monitor results as follows normal Sinus rhythm with an average heart rate of 86 beats per minute. There were periods of sinus tachycardia up to 124 beats per minute at 9:10pm. There were 3,693 PVCs, 51 cycles of ventricular bigeminy, 419 ventricular couplets and 14 runs of wide complex tachycardia, the longest being 3 beats with a maximum heart rate of 145 beats per minute. The 3 beat runs of wide complex tachycardia are polymorphic. There are no PACs. -Normal ammonia. 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 Image interpreted by me. Improving - keep on oxygen as needed to keep O2 sat >90% - continue neb treatment. - Lasix if tolerated elevated troponin Hypertension cardiomyopathy - echo with EF 25% - Aspirin - Metoprolol 25 mg every 8 hours. Unable to start MILDRED inhibitor secondary to acute kidney injury - Avoid statins due to transaminitis - evaluated by cardiology. Transaminitis chronic cholecystitis - Monitor liver enzymes Acute kidney injury superimposed on chronic kidney disease . Oliguric to anuric Severe dehydration - Baseline creatinine 1.8 to 2. Acute worsening secondary to severe dehydration , ATN and DKA - Monitor renal function closely. - Creatinine is rising with episodes of confusion likely secondary to uremia. Nephrology to manage hemodialysis Probable sepsis UTI -- one bottle of the blood cultures with staph coag. negative-likely contamination. -ID consult appreciated status post Levaquin and Flagyl until March 05. diarrhea- stool negative for c-diff. Anemia thrombocytopenia from Sepsis/DIC -Resolved thrombocytopenia -hematology following. -Monitor CBC. DKA-resolved now hyperglycemic secondary to tube feeding -continue sliding scale coverage. -adjust levemir, A1c 10. Hold off with Levemir dosing at night as patient will be nothing by mouth tomorrow morning for PEG -continue to monitor for hypoglycemia FEN. Calorie ct was cancelled by RT pt was not eating. Family agrees NGT and tube feeding. Aspiration precautions. Consulted GI for PEG PROPH: - Bilateral lower extremity SCDs. Restart heparin after Vas-Cath Discharge Planning Transfer to floor with telemetry. Oral care discussed with RN Problem Qualifiers (1) Altered mental status: Qualified Codes: R41.82 - Altered mental status, unspecified (2) DKA (diabetic ketoacidoses): (3) Sepsis: Qualified Codes: A41.9 - Sepsis, unspecified organism (4) UTI (urinary tract infection): (5) Acute renal failure: Qualified Codes: N17.9 - Acute kidney failure, unspecified Isrrael Tamyao MD Mar 08, 2017 13:24
--- NOTE | 2017-03-08 13:50 | HHI.NPPN ---
Subjective General Problems: Mebatolic Acidosis Renal Failure: Chronic, Acute Review of Systems General General Remarks unable to evaluate Objective Data Data Vital Signs Date Time Temp Pulse Resp B/P (MAP) Pulse Ox O2 Delivery O2 Flow Rate FiO2 03/08/17 12:00 80 03/08/17 12:00 97.9 82 20 106/56 (73) 100 03/08/17 10:00 82 03/08/17 08:06 99 Nasal Cannula 1.50 03/08/17 08:00 97.9 81 22 124/63 (83) 100 03/08/17 08:00 81 03/08/17 07:00 100 Nasal Cannula 2.00 03/08/17 06:00 77 03/08/17 04:00 90 Nasal Cannula 2.00 03/08/17 04:00 76 03/08/17 04:00 97.9 76 20 116/68 (84) 100 03/08/17 03:50 100 Nasal Cannula 2.00 03/08/17 02:00 73 03/08/17 00:00 98.0 74 23 101/51 (68) 92 03/08/17 00:00 74 03/07/17 22:00 7 03/07/17 20:07 100 21 03/07/17 20:00 97.9 78 23 101/58 (72) 98 03/07/17 20:00 78 03/07/17 19:00 98 Room Air 03/07/17 18:00 88 03/07/17 16:00 80 03/07/17 16:00 98.4 80 22 128/71 (90) 97 03/07/17 14:00 80 -: 03/08/17 0530 03/08/17 0530 Drip Comment None Physical Exam General Appearance: Malnourished Eyes Eye Exam: Pupils Equal, Pupils Reactive Throat Throat Exam: Oral Mucosa [place] & Moist Neck Neck Exam: Neck Supple Pulmonary Resp Exam: No Distress, Rhonchi, Decreased Bases Cardiology CV Exam: Regular, Normal Sinus Rhythm, Good Perfusion Gastrointestinal/Abdomen GI Exam: Soft, Non-Tender, Bowel Sounds Present Genitourinary Exam: Bladder Non-Palpable Musculoskeletal MS Exam: Joints Intact, Normal Tone, Unable to Ambulate Integumentary Skin Exam: Clear, Warm, Dry, Intact Extremeties Extremities Exam: No Edema, Pedal Pulses Palpable Neurologic Neuro Exam: Moving All Extremities, Obtunded VTE Prophylaxis Device: SCDs Assessment/Plan Discussed Condition With: Daughter Assessment Summary: HERVE/Acute Renal Failure, Acute Tubular Necrosis, Diabetes Mellitus Electrolyte Assessment: Hyperkalemia Problem List: (1) Acute renal failure ICD Codes: N17.9 - Acute kidney failure, unspecified Status: Acute Plan: This patient has underlying renal impairment, creatinine 1.8-2 at baseline He has 1.2 g proteinuria, which 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 HERVE from ATN secondary to dehydration, sepsis, and DKA Vascath placed and HD started 02/21 He was dialyzed in full last Thursday; Thursday was held and Family refused treatment Thursday Dialyzed Thursday with 1.3 L fluid removal Hyperkalemic, resolved next dialysis Thursday as Cr higher Dr. Quintanilla to follow (2) encephalopathy Plan: etiology uncertain thought to be due to uremia but it does not improve with dialysis ABG not suggesting respiratory component consider neurology reevaluation (3) DKA (diabetic ketoacidoses) ICD Codes: E13.10 - Other specified diabetes mellitus with ketoacidosis without coma Status: Resolved Plan: DKA resolved; A1c is 10 Diabetic control has been better, continue to adjust insulin with primary team. (4) Elevated troponin ICD Codes: R74.8 - Abnormal levels of other serum enzymes Plan: cardiology has evaluated suspect demand ischemia as etiology of elevated troponin levels 2D echo shows EF 25% (5) Sepsis ICD Codes: A41.9 - Sepsis, unspecified organism Status: Acute Plan: Resolving He is on Flagyl and Levaquin 1/2 blood cultures with staph hominis, likely contaminant HIDA scan taken, unable to visualize GB, results showing chronic cholecystitis (6) Dehydration with hypernatremia ICD Codes: E87.0 - Hyperosmolality and hypernatremia Status: Resolved Plan: Corrected, monitor for recurrence start free water via NG tube, may need PEG Plan Problem Qualifiers (1) Acute renal failure: Qualified Codes: N17.9 - Acute kidney failure, unspecified (2) DKA (diabetic ketoacidoses): (3) Sepsis: Qualified Codes: A41.9 - Sepsis, unspecified organism Sully Blankenship MD Mar 08, 2017 13:50
--- NOTE | 2017-03-08 16:04 | RADRPT ---
EXAM DATE/TIME: 03/08/2017 15:50 [place] COMPARISON: No previous studies available for comparison. INDICATIONS : NG tube placement. MEDICAL HISTORY : None. SURGICAL HISTORY : None. ENCOUNTER: Subsequent ACUITY: 4 - 6 days PAIN SCORE: Non-responsive. LOCATION: Left upper quadrant FINDINGS: A single AP view of the chest and upper abdomen were obtained and demonstrate placement of a nasogast rock tube with the tip projected over the proximal stomach. The side-port is projected over the distal esophagus. The heart size is enlarged and there is abnormal hazy opacity in the right lung with obsc uration of the right hemidiaphragm. There is abnormal opacity in the left lung base as well with obsc uration of left hemidiaphragm. There is a paucity of bowel gas. Multiple overlying electrocardiogram leads are present. There is a left internal jugular central venous line in place. CONCLUSION: 1. Placement of nasogastric tube which could be advanced it least 5 cm. 2. Abnormal opacity remains in the lung bases with blunting of the costophrenic angles consistent wit h effusions. Richard Bess MD on March 08, 2017 at 16:02 Board Certified Radiologist. This report was verified electronically.
--- NOTE | 2017-03-08 18:25 | RADRPT ---
EXAM DATE/TIME: 03/08/2017 18:51 [place] COMPARISON: ABDOMEN SINGLE VIEW, March 08, 2017, 15:50. INDICATIONS : Confirm NG tube placement. MEDICAL HISTORY : Cardiovascular disease. Hypertension SURGICAL HISTORY : None. ENCOUNTER: Subsequent ACUITY: 2 weeks PAIN SCORE: 0/10 LOCATION: Bilateral abdomen FINDINGS: A single AP portable view of the mid and upper abdomen was obtained and demonstrates interval advance ment of the nasogastric tube with the distal tip and side port now projects over the stomach. Abnorma l opacity remains at the lung bases with obscuration of the hemidiaphragms. The costophrenic angles r emain blunted. Bowel gas pattern is nonobstructive. CONCLUSION: Interval advancement of nasogastric tube into the stomach. Richard Bess MD on March 08, 2017 at 18:22 Board Certified Radiologist. This report was verified electronically.
[2017-03-09] VITALS (13 sets, daily range): BP systolic 94–129; BP diastolic 54–58; PULSE 77–115; RESP 15–23; TEMP 96.7–98.1; O2SAT 100
[2017-03-09] MEDS: CHLORHEXIDINE GLUCONATE 2 % 1 PACK (2 CLOTHS) TOP SCH ×2 (04:00)
[2017-03-09 05:15] LABS: BASOPHIL % 0.3 % (0.0-2.0); EOSINOPHIL % 0.5 % (0.0-4.0); HEMATOCRIT 25.4 % (39.0-51.0); HEMOGLOBIN 8.7 GM/DL (13.0-17.0); LYMPH % 8.7 % (9.0-44.0); LYMPHOCYTE # 0.8 TH/MM3 (1.0-4.8); MEAN CELL VOLUME 90.3 FL (80.0-100.0); MEAN CORPUSCULAR HGB CONC 34.4 % (32.0-36.0); MEAN PLATELET VOLUME 8.9 FL (7.0-11.0); MONO % 11.2 % (0.0-8.0); NEUT % 79.3 % (16.0-70.0); PLATELET COUNT 153 TH/MM3 (150-450); RED BLOOD COUNT 2.81 MIL/MM3 (4.50-5.90); WHITE BLOOD COUNT 8.8 TH/MM3 (4.0-11.0)
[2017-03-09 05:37] LABS: BICARBONATE 28.5 MEQ/L (21.0-32.0); CALCIUM 8.4 MG/DL (8.5-10.1); CREATININE 5.47 MG/DL (0.60-1.30); MAGNESIUM 2.2 MG/DL (1.5-2.5); PHOSPHORUS 5.3 MG/DL (2.5-4.9)
[2017-03-09] MEDS: METOPROLOL TARTRATE 25 MG TAB PO SCH ×6 (06:00→20:50)
[2017-03-09] MEDS: INSULIN DETEMIR 100 UNITS/ML VIAL SQ SCH ×2 (08:00)
[2017-03-09] MEDS: INSULIN ASPART SUPPLEMENTAL SCALE SQ SCH ×8 (08:00→20:49)
[2017-03-09] MEDS: RESP: ALBUTEROL 2.5 MG/IPRATROPIUM 0.5 MG NEB (SCH) NEB ×6 (08:39→20:11)
[2017-03-09] MEDS: ASPIRIN EC 81 MG TABEC PO SCH ×2 (08:51)
[2017-03-09] MEDS: DOCUSATE SODIUM 50 MG/SENNA 8.6 MG TAB PO SCH ×4 (08:51→20:49)
[2017-03-09] MEDS: LACTOBACILLUS ACIDOPHILUS TAB PO SCH ×6 (08:51→17:38)
[2017-03-09] MEDS: SODIUM CHLORIDE 0.9% FLUSH 10 ML FLUSH IV FLUSH SCH ×4 (08:51→20:49)
--- NOTE | 2017-03-09 10:13 | HHI.NPPN ---
Subjective Renal Failure: Chronic, Acute Interval History He continues to be obtunded. Groans to tactile stimuli. To have PEG placed today. Dialysis is planned for today. (Gely Dill) Review of Systems General General Remarks unable to evaluate (Gely Dill) Objective Data Data Vital Signs Date Time Temp Pulse Resp B/P (MAP) Pulse Ox O2 Delivery O2 Flow Rate FiO2 03/09/17 08:39 100 Nasal Cannula 2.00 03/09/17 06:00 79 03/09/17 04:00 96.7 79 22 102/58 (73) 100 03/09/17 04:00 79 03/09/17 02:00 79 03/09/17 00:00 98.1 79 15 109/56 (73) 100 03/09/17 00:00 79 03/08/17 22:00 78 03/08/17 20:00 76 03/08/17 20:00 97.6 76 18 112/55 (74) 100 03/08/17 19:00 100 Nasal Cannula 2.00 03/08/17 18:00 80 03/08/17 16:00 98.0 79 24 118/56 (76) 100 03/08/17 16:00 78 03/08/17 14:00 79 03/08/17 12:00 80 03/08/17 12:00 97.9 82 20 106/56 (73) 100 (Gely Dill) -: 03/09/17 0449 03/09/17 0449 Imaging Last 72 hours Impressions Abdomen X-Ray 03/08/17 0000 Signed Impressions: Service Date/Time: Wednesday, March 08, 2017 18:51 - CONCLUSION: Interval advancement of nasogastric tube into the stomach. Richard Bess MD Abdomen X-Ray 03/08/17 0000 Signed Impressions: Service Date/Time: Wednesday, March 08, 2017 15:50 - CONCLUSION: 1. Placement of nasogastric tube which could be advanced it least 5 cm. 2. Abnormal opacity remains in the lung bases with blunting of the costophrenic angles consistent with effusions. Richard Bess MD Tubes & Lines: Vas-Cath Drip Comment None (Gely Dill) Physical Exam General Appearance: Malnourished Appearance Remarks Disheveled, obtunded, blank stare but groans to tactile stimuli (Gely Dill [employer]CHE[employer]) Eyes Eye Exam: Pupils Equal, Pupils Reactive (Gely Dill [employer]) Throat Throat Exam: Oral Mucosa [place] & Moist (Gely Dill [employer]) Neck Neck Exam: Neck Supple (Gely Dill [employer]) Pulmonary Resp Exam: No Distress, Rhonchi, Decreased Bases Resp Remarks irregular in depth and rate (Gely Dill [employer]) Cardiology CV Exam: Regular, Normal Sinus Rhythm, Good Perfusion (Gely Dill. [employer]) Gastrointestinal/Abdomen GI Exam: Soft, Non-Tender, Bowel Sounds Present (Gely Dill [employer]) Genitourinary Exam: Bladder Non-Palpable (Gely Dill [employer]) Musculoskeletal MS Exam: Joints Intact, Atrophy, Unable to Ambulate (Gely Dill [employer]) Integumentary Skin Exam: Clear, Warm, Dry, Intact (Gely Dill. [employer]) Extremeties Extremities Exam: No Edema, Pedal Pulses Palpable (Gely Dill [employer]) Neurologic Neuro Exam: Awake, Moving All Extremities, Obtunded (Gely Dill [employer]) VTE Prophylaxis Device: SCDs (Gely Dill [employer]) Assessment/Plan Discussed Condition With: Relative Assessment Summary: HERVE/Acute Renal Failure, Acute Tubular Necrosis, Diabetes Mellitus Electrolyte Assessment: Hypokalemia Problem List: (1) Acute renal failure ICD Codes: N17.9 - Acute kidney failure, unspecified Status: Acute Plan: This patient has underlying renal impairment, creatinine 1.8-2 at baseline He has 1.2 g proteinuria, which 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 HERVE from [facility] secondary to dehydration, sepsis, and DKA HD initiated 02/21; vascath replaced on 03/06 Due today for dialysis K is 3.4, should correct with HD, recheck in AM Avoid IVF start tube feeding after PEG placement when cleared by GI half-way HD arrangements have not been made; he may have reached ESRD however we are unable to make that diagnosis at this time. In addition his mental status is not at the level required for outpatient HD. Will monitor for changes. (2) encephalopathy Plan: etiology uncertain thought to be due to uremia but it does not improve with dialysis ABG not suggesting respiratory component consider neurology reevaluation (3) DKA (diabetic ketoacidoses) ICD Codes: E13.10 - Other specified diabetes mellitus with ketoacidosis without coma Status: Resolved Plan: DKA resolved; A1c is 10 Diabetic control has been better, continue to adjust insulin with primary team. (4) Elevated troponin ICD Codes: R74.8 - Abnormal levels of other serum enzymes Plan: cardiology has evaluated suspect demand ischemia as etiology of elevated troponin levels 2D echo shows EF 25% (5) Sepsis ICD Codes: A41.9 - Sepsis, unspecified organism Status: Acute Plan: Resolving He is off antibiotics 1/2 blood cultures with staph hominis, likely contaminant HIDA scan taken, unable to visualize GB, results showing chronic cholecystitis (6) Dehydration with hypernatremia ICD Codes: E87.0 - Hyperosmolality and hypernatremia Status: Resolved Plan: Corrected, monitor for recurrence Plan (Gely Dill) Problem List: (1) Acute renal failure ICD Codes: N17.9 - Acute kidney failure, unspecified Status: Acute Plan: This patient has underlying renal impairment, creatinine 1.8-2 at baseline He has 1.2 g proteinuria, which 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 HERVE from [facility] secondary to dehydration, sepsis, and DKA HD initiated 02/21; vascath replaced on 03/06 Due today for dialysis K is 3.4, should correct with HD, recheck in AM Avoid IVF start tube feeding after PEG placement when cleared by GI half-way HD arrangements have not been made; he may have reached ESRD however we are unable to make that diagnosis at this time. In addition his mental status is not at the level required for outpatient HD. Will monitor for changes. (2) encephalopathy Plan: etiology uncertain thought to be due to uremia but it does not improve with dialysis ABG not suggesting respiratory component consider neurology reevaluation (3) DKA (diabetic ketoacidoses) ICD Codes: E13.10 - Other specified diabetes mellitus with ketoacidosis without coma Status: Resolved Plan: DKA resolved; A1c is 10 Diabetic control has been better, continue to adjust insulin with primary team. (4) Elevated troponin ICD Codes: R74.8 - Abnormal levels of other serum enzymes Plan: cardiology has evaluated suspect demand ischemia as etiology of elevated troponin levels 2D echo shows EF 25% (5) Sepsis ICD Codes: A41.9 - Sepsis, unspecified organism Status: Acute Plan: Resolving He is off antibiotics 1/2 blood cultures with staph hominis, likely contaminant HIDA scan taken, unable to visualize GB, results showing chronic cholecystitis (6) Dehydration with hypernatremia ICD Codes: E87.0 - Hyperosmolality and hypernatremia Status: Resolved Plan: Corrected, monitor for recurrence Plan patient was seen and examined. Agree with above assessment and plan. His mental status has not improved. We will continue dialysis support. No evidence of renal recovery. (Mc Quintanilla MD) Problem Qualifiers (1) Acute renal failure: Qualified Codes: N17.9 - Acute kidney failure, unspecified (2) DKA (diabetic ketoacidoses): (3) Sepsis: Qualified Codes: A41.9 - Sepsis, unspecified organism Gely Dill Mar 09, 2017 10:13 Mc Quintanilla MD Mar 10, 2017 11:23
--- NOTE | 2017-03-09 10:13 | HHI.NPPN ---
Subjective Renal Failure: Chronic, Acute Interval History He continues to be obtunded. Groans to tactile stimuli. To have PEG placed today. Dialysis is planned for today. (Gely Dill) Review of Systems General General Remarks unable to evaluate (Gely Dill) Objective Data Data Vital Signs Date Time Temp Pulse Resp B/P (MAP) Pulse Ox O2 Delivery O2 Flow Rate FiO2 03/09/17 08:39 100 Nasal Cannula 2.00 03/09/17 06:00 79 03/09/17 04:00 96.7 79 22 102/58 (73) 100 03/09/17 04:00 79 03/09/17 02:00 79 03/09/17 00:00 98.1 79 15 109/56 (73) 100 03/09/17 00:00 79 03/08/17 22:00 78 03/08/17 20:00 76 03/08/17 20:00 97.6 76 18 112/55 (74) 100 03/08/17 19:00 100 Nasal Cannula 2.00 03/08/17 18:00 80 03/08/17 16:00 98.0 79 24 118/56 (76) 100 03/08/17 16:00 78 03/08/17 14:00 79 03/08/17 12:00 80 03/08/17 12:00 97.9 82 20 106/56 (73) 100 (Gely Dill) -: 03/09/17 0449 03/09/17 0449 Imaging Last 72 hours Impressions Abdomen X-Ray 03/08/17 0000 Signed Impressions: Service Date/Time: Wednesday, March 08, 2017 18:51 - CONCLUSION: Interval advancement of nasogastric tube into the stomach. Richard Bess MD Abdomen X-Ray 03/08/17 0000 Signed Impressions: Service Date/Time: Wednesday, March 08, 2017 15:50 - CONCLUSION: 1. Placement of nasogastric tube which could be advanced it least 5 cm. 2. Abnormal opacity remains in the lung bases with blunting of the costophrenic angles consistent with effusions. Richard Bess MD Tubes & Lines: Vas-Cath Drip Comment None (Gely Dill) Physical Exam General Appearance: Malnourished Appearance Remarks Disheveled, obtunded, blank stare but groans to tactile stimuli (Gely Dill [employer]PERATOR) Eyes Eye Exam: Pupils Equal, Pupils Reactive (Gely Dill [employer]ARY [employer] OPERATOR) Throat Throat Exam: Oral Mucosa [place] & Moist (Gely Dill [employer]ARY L[employer]OGR[employer] OPERATOR) Neck Neck Exam: Neck Supple (Gely Dill [employer]ARY L[employer] OPERATOR) Pulmonary Resp Exam: No Distress, Rhonchi, Decreased Bases Resp Remarks irregular in depth and rate (Gely Dill [employer]ARY L[employer]OGRAPHIC [employer]ESS OPERATOR) Cardiology CV Exam: Regular, Normal Sinus Rhythm, Good Perfusion (Gely Dill. [employer]ARY [employer] OPERATOR) Gastrointestinal/Abdomen GI Exam: Soft, Non-Tender, Bowel Sounds Present (Gely Dill [employer]ARY L[employer]OGR[employer]IC [employer]ESS OPERATOR) Genitourinary Exam: Bladder Non-Palpable (Gely Dill [employer]ARY L[employer]GR[employer] OPERATOR) Musculoskeletal MS Exam: Joints Intact, Atrophy, Unable to Ambulate (Gely Dill [employer]ARY L[employer]OGR[employer]IC [employer] OPERATOR) Integumentary Skin Exam: Clear, Warm, Dry, Intact (Gely Dill. [employer]ARY L[employer]OGR[employer]IC [employer] OPERATOR) Extremeties Extremities Exam: No Edema, Pedal Pulses Palpable (Gely Dill [employer]OTARY L[employer]OGRAPHIC PRESS OPERATOR) Neurologic Neuro Exam: Awake, Moving All Extremities, Obtunded (Gely Dill [employer]OTARY L[employer]OGR[employer]IC [employer] OPERATOR) VTE Prophylaxis Device: SCDs (Gely Dill [employer]OTARY L[employer]OGRAPHIC PRESS OPERATOR) Assessment/Plan Discussed Condition With: Relative Assessment Summary: HERVE/Acute Renal Failure, Acute Tubular Necrosis, Diabetes Mellitus Electrolyte Assessment: Hypokalemia Problem List: (1) Acute renal failure ICD Codes: N17.9 - Acute kidney failure, unspecified Status: Acute Plan: This patient has underlying renal impairment, creatinine 1.8-2 at baseline He has 1.2 g proteinuria, which 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 HERVE from [facility] secondary to dehydration, sepsis, and DKA HD initiated 02/21; vascath replaced on 03/06 Due today for dialysis K is 3.4, should correct with HD, recheck in AM Avoid IVF start tube feeding after PEG placement when [facility] arrangements have not been made; he may have reached ESRD however we are unable to make that diagnosis at this time. In addition his mental status is not at the level required for outpatient HD. Will monitor for changes. (2) encephalopathy Plan: etiology uncertain thought to be due to uremia but it does not improve with dialysis ABG not suggesting respiratory component consider neurology reevaluation (3) DKA (diabetic ketoacidoses) ICD Codes: E13.10 - Other specified diabetes mellitus with ketoacidosis without coma Status: Resolved Plan: DKA resolved; A1c is 10 Diabetic control has been better, continue to adjust insulin with primary team. (4) Elevated troponin ICD Codes: R74.8 - Abnormal levels of other serum enzymes Plan: cardiology has evaluated suspect demand ischemia as etiology of elevated troponin levels 2D echo shows EF 25% (5) Sepsis ICD Codes: A41.9 - Sepsis, unspecified organism Status: Acute Plan: Resolving He is off antibiotics 1/2 blood cultures with staph hominis, likely contaminant HIDA scan taken, unable to visualize GB, results showing chronic cholecystitis (6) Dehydration with hypernatremia ICD Codes: E87.0 - Hyperosmolality and hypernatremia Status: Resolved Plan: Corrected, monitor for recurrence Plan (Gely Dill) Problem List: (1) Acute renal failure ICD Codes: N17.9 - Acute kidney failure, unspecified Status: Acute Plan: This patient has underlying renal impairment, creatinine 1.8-2 at baseline He has 1.2 g proteinuria, which 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 HERVE from [facility] secondary to dehydration, sepsis, and DKA HD initiated 02/21; vascath replaced on 03/06 Due today for dialysis K is 3.4, should correct with HD, recheck in AM Avoid IVF start tube feeding after PEG placement when cleared [facility] arrangements have not been made; he may have reached ESRD however we are unable to make that diagnosis at this time. In addition his mental status is not at the level required for outpatient HD. Will monitor for changes. (2) encephalopathy Plan: etiology uncertain thought to be due to uremia but it does not improve with dialysis ABG not suggesting respiratory component consider neurology reevaluation (3) DKA (diabetic ketoacidoses) ICD Codes: E13.10 - Other specified diabetes mellitus with ketoacidosis without coma Status: Resolved Plan: DKA resolved; A1c is 10 Diabetic control has been better, continue to adjust insulin with primary team. (4) Elevated troponin ICD Codes: R74.8 - Abnormal levels of other serum enzymes Plan: cardiology has evaluated suspect demand ischemia as etiology of elevated troponin levels 2D echo shows EF 25% (5) Sepsis ICD Codes: A41.9 - Sepsis, unspecified organism Status: Acute Plan: Resolving He is off antibiotics 1/2 blood cultures with staph hominis, likely contaminant HIDA scan taken, unable to visualize GB, results showing chronic cholecystitis (6) Dehydration with hypernatremia ICD Codes: E87.0 - Hyperosmolality and hypernatremia Status: Resolved Plan: Corrected, monitor for recurrence Plan patient was seen and examined. Agree with above assessment and plan. His mental status has not improved. We will continue dialysis support. No evidence of renal recovery. (Mc Quintanilla MD) Problem Qualifiers (1) Acute renal failure: Qualified Codes: N17.9 - Acute kidney failure, unspecified (2) DKA (diabetic ketoacidoses): (3) Sepsis: Qualified Codes: A41.9 - Sepsis, unspecified organism Gely Dill Mar 09, 2017 10:13 Mc Quintanilla MD Mar 10, 2017 11:23
--- NOTE | 2017-03-09 10:13 | HHI.NPPN ---
Subjective Renal Failure: Chronic, Acute Interval History He continues to be obtunded. Groans to tactile stimuli. To have PEG placed today. Dialysis is planned for today. (Gely Dill) Review of Systems General General Remarks unable to evaluate (Gely Dill) Objective Data Data Vital Signs Date Time Temp Pulse Resp B/P (MAP) Pulse Ox O2 Delivery O2 Flow Rate FiO2 03/09/17 08:39 100 Nasal Cannula 2.00 03/09/17 06:00 79 03/09/17 04:00 96.7 79 22 102/58 (73) 100 03/09/17 04:00 79 03/09/17 02:00 79 03/09/17 00:00 98.1 79 15 109/56 (73) 100 03/09/17 00:00 79 03/08/17 22:00 78 03/08/17 20:00 76 03/08/17 20:00 97.6 76 18 112/55 (74) 100 03/08/17 19:00 100 Nasal Cannula 2.00 03/08/17 18:00 80 03/08/17 16:00 98.0 79 24 118/56 (76) 100 03/08/17 16:00 78 03/08/17 14:00 79 03/08/17 12:00 80 03/08/17 12:00 97.9 82 20 106/56 (73) 100 (Gely Dill) -: 03/09/17 0449 03/09/17 0449 Imaging Last 72 hours Impressions Abdomen X-Ray 03/08/17 0000 Signed Impressions: Service Date/Time: Wednesday, March 08, 2017 18:51 - CONCLUSION: Interval advancement of nasogastric tube into the stomach. Richard Bess MD Abdomen X-Ray 03/08/17 0000 Signed Impressions: Service Date/Time: Wednesday, March 08, 2017 15:50 - CONCLUSION: 1. Placement of nasogastric tube which could be advanced it least 5 cm. 2. Abnormal opacity remains in the lung bases with blunting of the costophrenic angles consistent with effusions. Richard Bess MD Tubes & Lines: Vas-Cath Drip Comment None (Gely Dill) Physical Exam General Appearance: Malnourished Appearance Remarks Disheveled, obtunded, blank stare but groans to tactile stimuli (Gely Dill [employer]) Eyes Eye Exam: Pupils Equal, Pupils Reactive (Gely Dill [employer]) Throat Throat Exam: Oral Mucosa [place] & Moist (Gely Dill [employer]) Neck Neck Exam: Neck Supple (Gely Dill [employer]) Pulmonary Resp Exam: No Distress, Rhonchi, Decreased Bases Resp Remarks irregular in depth and rate (Gely Dill [employer]) Cardiology CV Exam: Regular, Normal Sinus Rhythm, Good Perfusion (Gely Dill. [employer]) Gastrointestinal/Abdomen GI Exam: Soft, Non-Tender, Bowel Sounds Present (Gely Dill [employer]) Genitourinary Exam: Bladder Non-Palpable (Gely Dill [employer]) Musculoskeletal MS Exam: Joints Intact, Atrophy, Unable to Ambulate (Gely Dill [employer]) Integumentary Skin Exam: Clear, Warm, Dry, Intact (Gely Dill. [employer]) Extremeties Extremities Exam: No Edema, Pedal Pulses Palpable (Gely Dill [employer]) Neurologic Neuro Exam: Awake, Moving All Extremities, Obtunded (Gely Dill [employer]) VTE Prophylaxis Device: SCDs (Gely Dill [employer]) Assessment/Plan Discussed Condition With: Relative Assessment Summary: HERVE/Acute Renal Failure, Acute Tubular Necrosis, Diabetes Mellitus Electrolyte Assessment: Hypokalemia Problem List: (1) Acute renal failure ICD Codes: N17.9 - Acute kidney failure, unspecified Status: Acute Plan: This patient has underlying renal impairment, creatinine 1.8-2 at baseline He has 1.2 g proteinuria, which 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 HERVE from [facility] secondary to dehydration, sepsis, and DKA HD initiated 02/21; vascath replaced on 03/06 Due today for dialysis K is 3.4, should correct with HD, recheck in AM Avoid IVF start tube feeding after PEG placement when cleared by GI care home HD arrangements have not been made; he may have reached ESRD however we are unable to make that diagnosis at this time. In addition his mental status is not at the level required for outpatient HD. Will monitor for changes. (2) encephalopathy Plan: etiology uncertain thought to be due to uremia but it does not improve with dialysis ABG not suggesting respiratory component consider neurology reevaluation (3) DKA (diabetic ketoacidoses) ICD Codes: E13.10 - Other specified diabetes mellitus with ketoacidosis without coma Status: Resolved Plan: DKA resolved; A1c is 10 Diabetic control has been better, continue to adjust insulin with primary team. (4) Elevated troponin ICD Codes: R74.8 - Abnormal levels of other serum enzymes Plan: cardiology has evaluated suspect demand ischemia as etiology of elevated troponin levels 2D echo shows EF 25% (5) Sepsis ICD Codes: A41.9 - Sepsis, unspecified organism Status: Acute Plan: Resolving He is off antibiotics 1/2 blood cultures with staph hominis, likely contaminant HIDA scan taken, unable to visualize GB, results showing chronic cholecystitis (6) Dehydration with hypernatremia ICD Codes: E87.0 - Hyperosmolality and hypernatremia Status: Resolved Plan: Corrected, monitor for recurrence Plan (Gely Dill) Problem List: (1) Acute renal failure ICD Codes: N17.9 - Acute kidney failure, unspecified Status: Acute Plan: This patient has underlying renal impairment, creatinine 1.8-2 at baseline He has 1.2 g proteinuria, which 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 HERVE from [facility] secondary to dehydration, sepsis, and DKA HD initiated 02/21; vascath replaced on 03/06 Due today for dialysis K is 3.4, should correct with HD, recheck in AM Avoid IVF start tube feeding after PEG placement when cleared by GI care home HD arrangements have not been made; he may have reached ESRD however we are unable to make that diagnosis at this time. In addition his mental status is not at the level required for outpatient HD. Will monitor for changes. (2) encephalopathy Plan: etiology uncertain thought to be due to uremia but it does not improve with dialysis ABG not suggesting respiratory component consider neurology reevaluation (3) DKA (diabetic ketoacidoses) ICD Codes: E13.10 - Other specified diabetes mellitus with ketoacidosis without coma Status: Resolved Plan: DKA resolved; A1c is 10 Diabetic control has been better, continue to adjust insulin with primary team. (4) Elevated troponin ICD Codes: R74.8 - Abnormal levels of other serum enzymes Plan: cardiology has evaluated suspect demand ischemia as etiology of elevated troponin levels 2D echo shows EF 25% (5) Sepsis ICD Codes: A41.9 - Sepsis, unspecified organism Status: Acute Plan: Resolving He is off antibiotics 1/2 blood cultures with staph hominis, likely contaminant HIDA scan taken, unable to visualize GB, results showing chronic cholecystitis (6) Dehydration with hypernatremia ICD Codes: E87.0 - Hyperosmolality and hypernatremia Status: Resolved Plan: Corrected, monitor for recurrence Plan patient was seen and examined. Agree with above assessment and plan. His mental status has not improved. We will continue dialysis support. No evidence of renal recovery. (Mc Quintanilla MD) Problem Qualifiers (1) Acute renal failure: Qualified Codes: N17.9 - Acute kidney failure, unspecified (2) DKA (diabetic ketoacidoses): (3) Sepsis: Qualified Codes: A41.9 - Sepsis, unspecified organism Gely Dill Mar 09, 2017 10:13 Mc Quintanilla MD Mar 10, 2017 11:23
--- NOTE | 2017-03-09 11:01 | HHI.PR ---
Subjective Remarks Follow-up encephalopathy. He is more awake, answers questions and follows commands. Awaiting PEG secondary to dysphagia. He is anuric due for hemodialysis today discussed with RN Objective Vitals Vital Signs Date Time Temp Pulse Resp B/P (MAP) Pulse Ox O2 Delivery O2 Flow Rate FiO2 03/09/17 08:39 100 Nasal Cannula 2.00 03/09/17 06:00 79 03/09/17 04:00 96.7 79 22 102/58 (73) 100 03/09/17 04:00 79 03/09/17 02:00 79 03/09/17 00:00 98.1 79 15 109/56 (73) 100 03/09/17 00:00 79 03/08/17 22:00 78 03/08/17 20:00 76 03/08/17 20:00 97.6 76 18 112/55 (74) 100 03/08/17 19:00 100 Nasal Cannula 2.00 03/08/17 18:00 80 03/08/17 16:00 98.0 79 24 118/56 (76) 100 03/08/17 16:00 78 03/08/17 14:00 79 03/08/17 12:00 80 03/08/17 12:00 97.9 82 20 106/56 (73) 100 I/O 03/08/17 03/08/17 03/08/17 03/09/17 03/09/17 03/09/17 07:00 15:00 23:00 07:00 15:00 23:00 Intake Total 604 ml 439 ml 330 ml Output Total 0 ml 0 ml 0 ml Balance 604 ml 439 ml 330 ml Tube Feeding 504 ml 439 ml 330 ml Tube Irrigant 100 ml Output Urine Total 0 ml 0 ml 0 ml Gastric Drainage Total 0 ml # Bowel Movements 2 3 1 Result Diagram: 03/09/179 03/09/17448 Objective Remarks GENERAL: WD WN patient in no distress SKIN: No rash or lesions NECK: Trachea midline. No JVD. No Stridor CARDIOVASCULAR: Regular rate and rhythm. Systolic murmur noted RESPIRATORY: No accessory muscle use. Decreased Breath sounds equal bilaterally. GASTROINTESTINAL: Abdomen soft, non-tender, nondistended. MUSCULOSKELETAL: Extremities without clubbing, cyanosis, or edema. No obvious deformities. NEUROLOGICAL: More awake and interactive answers questions and follows commands. Generalized weakness. Speech is garbled but improving No significant change in PE from previous Procedures Vascath 2, central line A/P Problem List: (1) Acute metabolic encephalopathy ICD Code: G93.41 - Metabolic encephalopathy (2) Altered mental status ICD Code: R41.82 - Altered mental status, unspecified Status: Acute (3) DKA (diabetic ketoacidoses) ICD Code: E13.10 - Other specified diabetes mellitus with ketoacidosis without coma Status: Resolved (4) Non-STEMI (non-ST elevated myocardial infarction) ICD Code: I21.4 - Non-ST elevation (NSTEMI) myocardial infarction Status: Acute (5) Dehydration with hypernatremia ICD Code: E87.0 - Hyperosmolality and hypernatremia Status: Resolved (6) Sepsis ICD Code: A41.9 - Sepsis, unspecified organism Status: Acute (7) UTI (urinary tract infection) ICD Code: N39.0 - Urinary tract infection, site not specified Status: Acute (8) Acute renal failure ICD Code: N17.9 - Acute kidney failure, unspecified Status: Acute (9) Hyperglycemia ICD Code: R73.9 - Hyperglycemia, unspecified Status: Acute (10) Lactic acidemia ICD Code: E87.2 - Acidosis (11) Transaminitis ICD Code: R74.0 - Nonspecific elevation of levels of transaminase and lactic acid dehydrogenase [LDH] (12) Respiratory insufficiency ICD Code: R06.89 - Other abnormalities of breathing Assessment and Plan Acute encephalopathy, multifactorial. He is improving after hemodialysis. His breathing pattern is now regular -repeated CT with no acute abnormality. -Treat agitation with when necessary Haldol -rpt EEG without seizure. Carotid sonogram showed left carotid occlusion and 50 % stenosis on the right carotid. Patient on aspirin. Patient on statin currently on hold because of transaminitis. Telemetry shows nonsustained V. tach but was asymptomatic during the episode. Holter monitor results as follows normal Sinus rhythm with an average heart rate of 86 beats per minute. There were periods of sinus tachycardia up to 124 beats per minute at 9:10pm. There were 3,693 PVCs, 51 cycles of ventricular bigeminy, 419 ventricular couplets and 14 runs of wide complex tachycardia, the longest being 3 beats with a maximum heart rate of 145 beats per minute. The 3 beat runs of wide complex tachycardia are polymorphic. There are no PACs. -Normal ammonia. 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 Image interpreted by me. Improving - keep on oxygen as needed to keep O2 sat >90% - continue neb treatment. - Lasix if tolerated elevated troponin Hypertension cardiomyopathy - echo with EF 25% - Aspirin - Metoprolol 25 mg every 8 hours. Unable to start MILDRED inhibitor secondary to acute kidney injury - Avoid statins due to transaminitis - evaluated by cardiology. Transaminitis chronic cholecystitis - Monitor liver enzymes Acute kidney injury superimposed on chronic kidney disease . Oliguric to anuric Severe dehydration - Baseline creatinine 1.8 to 2. Acute worsening secondary to severe dehydration , ATN and DKA - Monitor renal function closely. - Creatinine is rising with episodes of confusion likely secondary to uremia. Nephrology to manage hemodialysis Probable sepsis UTI -- one bottle of the blood cultures with staph coag. negative-likely contamination. -ID consult appreciated status post Levaquin and Flagyl until March 05. diarrhea- stool negative for c-diff. Anemia thrombocytopenia from Sepsis/DIC -Resolved thrombocytopenia -hematology following. -Monitor CBC. DKA-resolved now hyperglycemic secondary to tube feeding -continue sliding scale coverage. -adjust levemir, A1c 10. Hold off with Levemir dosing at night -continue to monitor for hypoglycemia FEN. Calorie ct was cancelled by RT pt was not eating. Family agrees NGT and tube feeding. Aspiration precautions. Consulted GI for PEG secondary to dysphagia PROPH: - Bilateral lower extremity SCDs. Restart heparin after Vas-Cath Discharge Planning Transfer to floor with telemetry. We will need longterm facility. Renal to decide if patient will need outpatient hemodialysis Problem Qualifiers (1) Altered mental status: Qualified Codes: R41.82 - Altered mental status, unspecified (2) DKA (diabetic ketoacidoses): (3) Sepsis: Qualified Codes: A41.9 - Sepsis, unspecified organism (4) UTI (urinary tract infection): (5) Acute renal failure: Qualified Codes: N17.9 - Acute kidney failure, unspecified Isrrael Tamayo MD Mar 09, 2017 11:01
[2017-03-09] MEDS ORDERED: SODIUM CHLORIDE 0.9% 20 ML VIAL IV ONE ×2 (12:00)
[2017-03-09] MEDS ORDERED: ePHEDrine/NS 25 MG/5 ML SYR IV ONE ×2 (12:00)
[2017-03-09] MEDS ORDERED: PROPOFOL 200 MG/20 ML AMP IV ONE ×2 (12:00)
[2017-03-09] MEDS ORDERED: DO NOT ADM ANY ANTICOAGULANT DRUGS PRN ×2 (16:14)
--- NOTE | 2017-03-09 16:18 | GIPROC ---
[facility] [address] [facility]. [facility], [address] EGD WITH PEG PROCEDURE REPORT EXAM DATE: 03/09/2017 PATIENT NAME: Rex Crawford MR#: [id number] BIRTHDATE: 1940 ATTENDING: Judy Gonzalez MD ORDER #: [id number] DIETARY MANAGER: Ja Noriega and Kimberley Pulido STATUS: inpatient INDICATIONS: The patient is a 77 yr old male here for an EGD with PEG due to odynophagia , freeding difficulties PROCEDURE PERFORMED: EGD with PEG placement MEDICATIONS: None and Per Anesthesia. TOPICAL ANESTHETIC: none CONSENT: The patient understands the risks and benefits of the procedure and understands that these risks include, but are not limited to: sedation, allergic reaction, infection, perforation and/or bleeding. Alternative means of evaluation and treatment include, among others: physical exam, x-rays, and/or surgical intervention. The patient elects to proceed with this endoscopic procedure. medical equipment was checked for proper function. Hand hygiene and appropriate measures for infection prevention was taken. After the risks, benefits and alternatives of the procedure were thoroughly explained, Informed consent was verified, confirmed and timeout was successfully executed by the treatment team. The patient was anesthetized with topical anesthesia and the Pentax EG-[id number] endoscope was introduced through the mouth and advanced to the second portion of the duodenum. The instrument was slowly withdrawn as the mucosa was fully examined. retained food in stomach suggesting possible gastropareis The stomach was then inflated with air, and by a combination of transillumination and manual palpation, the site for the gastrostomy tube placement was selected and marked on the anterior abdominal wall. The skin of the anterior abdomen was surgically prepped and draped with sterile towels. Utilizing strict sterile technique, the selected site was then anesthetized with 1% xylocaine by injection into the skin and subcutaneous tissue. A 1 cm incision was made through the skin and subcutaneous tissue, and the needle/cannula assembly was then passed through the abdominal wall and through the anterior wall of the stomach, maintaining visualization with the endoscope. A snare device previously placed through the instrument channel was then opened and placed around the cannula, the needle was removed, and the insertion wire was passed through the cannula and into the stomach lumen. The snare was then loosened from the cannula, and repositioned to snare the insertion wire. The snare was then pulled up to the endoscope distal tip, and the scope was then withdrawn bringing with it the snare and insertion wire. The insertion wire was then released from the snare, and then loop-attached to the gastrostomy tube. Using the "pull technique", the G-tube was then pulled into place by traction on the insertion wire at the abdominal wall end. The G-tube insertion site was then cleansed once again, and the external bolster was placed over the tube to secure it to the abdominal wall. A sterile dressing was then applied, and the procedure terminated. a hiatal hernia The gastroscope was then slowly withdrawn and removed. ADVERSE EVENT: There were no complications. IMPRESSIONS: A hiatal hernia RECOMMENDATIONS: tube feeding in am ok to use peg for medications only today abdominal binder REPEAT EXAM: Judy Gonzalez MD eSigned: Judy Gonzalez MD 03/09/2017 4:18 PM cc: PATIENT NAME: Rex Crawford MR#: [id number]
--- NOTE | 2017-03-09 16:18 | GIPROC ---
[facility] [address] [facility]. [facility], [address] EGD WITH PEG PROCEDURE REPORT EXAM DATE: 03/09/2017 PATIENT NAME: Rex Crawford MR#: [id number] BIRTHDATE: 1940 ATTENDING: uJdy Gonzalez MD ORDER #: [id number] MOLD STAMPER AND REPAIRER: Ja Noriega and Kimberley Pulido STATUS: inpatient INDICATIONS: The patient is a 77 yr old male here for an EGD with PEG due to odynophagia , freeding difficulties PROCEDURE PERFORMED: EGD with PEG placement MEDICATIONS: None and Per Anesthesia. TOPICAL ANESTHETIC: none CONSENT: The patient understands the risks and benefits of the procedure and understands that these risks include, but are not limited to: sedation, allergic reaction, infection, perforation and/or bleeding. Alternative means of evaluation and treatment include, among others: physical exam, x-rays, and/or surgical intervention. The patient elects to proceed with this endoscopic procedure. medical equipment was checked for proper function. Hand hygiene and appropriate measures for infection prevention was taken. After the risks, benefits and alternatives of the procedure were thoroughly explained, Informed consent was verified, confirmed and timeout was successfully executed by the treatment team. The patient was anesthetized with topical anesthesia and the Pentax EG-[id number] endoscope was introduced through the mouth and advanced to the second portion of the duodenum. The instrument was slowly withdrawn as the mucosa was fully examined. retained food in stomach suggesting possible gastropareis The stomach was then inflated with air, and by a combination of transillumination and manual palpation, the site for the gastrostomy tube placement was selected and marked on the anterior abdominal wall. The skin of the anterior abdomen was surgically prepped and draped with sterile towels. Utilizing strict sterile technique, the selected site was then anesthetized with 1% xylocaine by injection into the skin and subcutaneous tissue. A 1 cm incision was made through the skin and subcutaneous tissue, and the needle/cannula assembly was then passed through the abdominal wall and through the anterior wall of the stomach, maintaining visualization with the endoscope. A snare device previously placed through the instrument channel was then opened and placed around the cannula, the needle was removed, and the insertion wire was passed through the cannula and into the stomach lumen. The snare was then loosened from the cannula, and repositioned to snare the insertion wire. The snare was then pulled up to the endoscope distal tip, and the scope was then withdrawn bringing with it the snare and insertion wire. The insertion wire was then released from the snare, and then loop-attached to the gastrostomy tube. Using the "pull technique", the G-tube was then pulled into place by traction on the insertion wire at the abdominal wall end. The G-tube insertion site was then cleansed once again, and the external bolster was placed over the tube to secure it to the abdominal wall. A sterile dressing was then applied, and the procedure terminated. a hiatal hernia The gastroscope was then slowly withdrawn and removed. ADVERSE EVENT: There were no complications. IMPRESSIONS: A hiatal hernia RECOMMENDATIONS: tube feeding in am ok to use peg for medications only today abdominal binder REPEAT EXAM: Judy Gonzalez MD eSigned: Judy Gonzalez MD 03/09/2017 4:18 PM cc: PATIENT NAME: Rex Crawford MR#: [id number]
--- NOTE | 2017-03-09 16:18 | GIPROC ---
[facility] [address] [facility]. [facility], [address] EGD WITH PEG PROCEDURE REPORT EXAM DATE: 03/09/2017 PATIENT NAME: Rex Crawford MR#: [id number] BIRTHDATE: 1940 ATTENDING: Judy Gonzalez MD ORDER #: [id number] SHAREPOINT DESIGNER DEVELOPER: Ja Noriega and Kimberley Pulido STATUS: inpatient INDICATIONS: The patient is a 77 yr old male here for an EGD with PEG due to odynophagia , freeding difficulties PROCEDURE PERFORMED: EGD with PEG placement MEDICATIONS: None and Per Anesthesia. TOPICAL ANESTHETIC: none CONSENT: The patient understands the risks and benefits of the procedure and understands that these risks include, but are not limited to: sedation, allergic reaction, infection, perforation and/or bleeding. Alternative means of evaluation and treatment include, among others: physical exam, x-rays, and/or surgical intervention. The patient elects to proceed with this endoscopic procedure. medical equipment was checked for proper function. Hand hygiene and appropriate measures for infection prevention was taken. After the risks, benefits and alternatives of the procedure were thoroughly explained, Informed consent was verified, confirmed and timeout was successfully executed by the treatment team. The patient was anesthetized with topical anesthesia and the Pentax EG-2970K endoscope was introduced through the mouth and advanced to the second portion of the duodenum. The instrument was slowly withdrawn as the mucosa was fully examined. retained food in stomach suggesting possible gastropareis The stomach was then inflated with air, and by a combination of transillumination and manual palpation, the site for the gastrostomy tube placement was selected and marked on the anterior abdominal wall. The skin of the anterior abdomen was surgically prepped and draped with sterile towels. Utilizing strict sterile technique, the selected site was then anesthetized with 1% xylocaine by injection into the skin and subcutaneous tissue. A 1 cm incision was made through the skin and subcutaneous tissue, and the needle/cannula assembly was then passed through the abdominal wall and through the anterior wall of the stomach, maintaining visualization with the endoscope. A snare device previously placed through the instrument channel was then opened and placed around the cannula, the needle was removed, and the insertion wire was passed through the cannula and into the stomach lumen. The snare was then loosened from the cannula, and repositioned to snare the insertion wire. The snare was then pulled up to the endoscope distal tip, and the scope was then withdrawn bringing with it the snare and insertion wire. The insertion wire was then released from the snare, and then loop-attached to the gastrostomy tube. Using the "pull technique", the G-tube was then pulled into place by traction on the insertion wire at the abdominal wall end. The G-tube insertion site was then cleansed once again, and the external bolster was placed over the tube to secure it to the abdominal wall. A sterile dressing was then applied, and the procedure terminated. a hiatal hernia The gastroscope was then slowly withdrawn and removed. ADVERSE EVENT: There were no complications. IMPRESSIONS: A hiatal hernia RECOMMENDATIONS: tube feeding in am ok to use peg for medications only today abdominal binder REPEAT EXAM: Judy Gonzalez MD eSigned: Judy Gonzalez MD 03/09/2017 4:18 PM cc: PATIENT NAME: Rex Crawford MR#: [id number]
[2017-03-09] MEDS: ACETAMINOPHEN 325 MG TAB PO PRN ×2 (19:38)
[2017-03-10] VITALS (8 sets, daily range): BP systolic 91–108; BP diastolic 51–59; PULSE 78–90; RESP 18–20; TEMP 97.6–98.2; O2SAT 93–100
[2017-03-10] MEDS: CHLORHEXIDINE GLUCONATE 2 % 1 PACK (2 CLOTHS) TOP SCH ×2 (03:40)
[2017-03-10] MEDS: METOPROLOL TARTRATE 25 MG TAB PO SCH ×6 (05:11→21:49)
[2017-03-10 06:54] LABS: AUTOMATED NEUTROPHIL # 6.1 TH/MM3 (1.8-7.7); BASOPHIL % 0.2 % (0.0-2.0); EOSINOPHIL % 0.4 % (0.0-4.0); HEMATOCRIT 23.4 % (39.0-51.0); HEMOGLOBIN 7.9 GM/DL (13.0-17.0); LYMPHOCYTE # 0.5 TH/MM3 (1.0-4.8); MEAN CELL VOLUME 91.5 FL (80.0-100.0); MEAN CORPUSCULAR HEMOGLOBIN 30.8 PG (27.0-34.0); MEAN CORPUSCULAR HGB CONC 33.7 % (32.0-36.0); MEAN PLATELET VOLUME 9.2 FL (7.0-11.0); MONO % 5.7 % (0.0-8.0); MONOCYTE # 0.4 TH/MM3 (0-0.9); NEUT % 86.7 % (16.0-70.0); PLATELET COUNT 139 TH/MM3 (150-450); RED BLOOD COUNT 2.56 MIL/MM3 (4.50-5.90); RED CELL DISTRIBUTION WIDTH 16.7 % (11.6-17.2); WHITE BLOOD COUNT 7.1 TH/MM3 (4.0-11.0)
[2017-03-10 07:09] LABS: BICARBONATE 27.1 MEQ/L (21.0-32.0); CALCIUM 7.9 MG/DL (8.5-10.1); CREATININE 5.95 MG/DL (0.60-1.30); MAGNESIUM 2.1 MG/DL (1.5-2.5)
[2017-03-10] MEDS: RESP: ALBUTEROL 2.5 MG/IPRATROPIUM 0.5 MG NEB (SCH) NEB ×8 (07:59→20:00)
[2017-03-10] MEDS: INSULIN DETEMIR 100 UNITS/ML VIAL SQ SCH ×2 (08:58)
[2017-03-10] MEDS: INSULIN ASPART SUPPLEMENTAL SCALE SQ SCH ×8 (08:58→21:33)
--- NOTE | 2017-03-10 09:15 | HHI.NPPN ---
Subjective Renal Failure: Chronic, Acute Interval History PEG placed yesterday. Seen during dialysis. His upper extremities are restrained. He is unable to follow commands and he is trashing around in the bed. (Gely Dill) Review of Systems General General Remarks unable to evaluate (Gely Dill) Objective Data Data Vital Signs Date Time Temp Pulse Resp B/P (MAP) Pulse Ox O2 Delivery O2 Flow Rate FiO2 03/10/17 07:59 97 Nasal Cannula 3.00 03/10/17 04:00 97.8 81 20 108/55 (72) 100 03/10/17 00:00 97.6 78 18 107/51 (69) 97 03/09/17 23:00 77 03/09/17 20:00 Nasal Cannula 3.00 03/09/17 20:00 97.7 115 20 108/56 (73) 100 03/09/17 17:00 97.4 79 16 102/70 (81) 99 Nasal Cannula 2 03/09/17 16:45 80 21 99/55 (70) 100 Nasal Cannula 2 03/09/17 16:30 84 14 92/53 (66) 100 Nasal Cannula 3 03/09/17 16:15 96.9 85 21 102/55 (71) 100 Nasal Cannula 3 03/09/17 16:06 97.3 79 18 94/54 (67) 100 03/09/17 15:02 Nasal Cannula 2.00 03/09/17 14:00 80 03/09/17 12:00 97.8 79 23 105/58 (74) 100 03/09/17 12:00 80 03/09/17 10:00 80 (Gely Dill) -: 03/10/17 0620 03/10/17 0620 Imaging Last 72 hours Impressions Abdomen X-Ray 03/08/17 0000 Signed Impressions: Service Date/Time: Wednesday, March 08, 2017 18:51 - CONCLUSION: Interval advancement of nasogastric tube into the stomach. Richard Bess MD Abdomen X-Ray 03/08/17 0000 Signed Impressions: Service Date/Time: Wednesday, March 08, 2017 15:50 - CONCLUSION: 1. Placement of nasogastric tube which could be advanced it least 5 cm. 2. Abnormal opacity remains in the lung bases with blunting of the costophrenic angles consistent with effusions. Richard Bess MD Tubes & Lines: Vas-Cath Tubes & Lines Comment TLC and vascath left IJ Drip Comment None (Gely Dill B. STRAIGHTENING ROLL OPERATOR) Physical Exam General Appearance: Malnourished Appearance Remarks Disheveled, obtunded, restless (Gely Dill B. STRAIGHTENING ROLL OPERATOR) Eyes Eye Exam: Pupils Equal, Pupils Reactive (Gely Dill B. STRAIGHTENING ROLL OPERATOR) Throat Throat Exam: Oral Mucosa [place] & Moist (Gely Dill B. STRAIGHTENING ROLL OPERATOR) Neck Neck Exam: Neck Supple (Gely Dill B. STRAIGHTENING ROLL OPERATOR) Pulmonary Resp Exam: No Distress, Rhonchi, Decreased Bases Resp Remarks irregular in depth and rate (Gely Dill B. STRAIGHTENING ROLL OPERATOR) Cardiology CV Exam: Regular, Normal Sinus Rhythm, Good Perfusion (Gely Dill B. STRAIGHTENING ROLL OPERATOR) Gastrointestinal/Abdomen GI Exam: Soft, Non-Tender, Bowel Sounds Present (Gely Dill B. STRAIGHTENING ROLL OPERATOR) Genitourinary Exam: Bladder Non-Palpable (Gely Dill B. STRAIGHTENING ROLL OPERATOR) Musculoskeletal MS Exam: Joints Intact, Atrophy, Unable to Ambulate (Gely Dill B. STRAIGHTENING ROLL OPERATOR) Integumentary Skin Exam: Clear, Warm, Dry, Intact (Gely Dill B. STRAIGHTENING ROLL OPERATOR) Extremeties Extremities Exam: No Edema, Pedal Pulses Palpable (Gely Dill B. STRAIGHTENING ROLL OPERATOR) Neurologic Neuro Exam: Awake, Moving All Extremities, Obtunded (Gely Dill B. STRAIGHTENING ROLL OPERATOR) VTE Prophylaxis Device: SCDs (Gely Dill B. STRAIGHTENING ROLL OPERATOR) Assessment/Plan Discussed Condition With: Relative Assessment Summary: HERVE/Acute Renal Failure, Acute Tubular Necrosis, Diabetes Mellitus Problem List: (1) Acute renal failure ICD Codes: N17.9 - Acute kidney failure, unspecified Status: Acute Plan: This patient has underlying renal impairment, creatinine 1.8-2 at baseline He has 1.2 g proteinuria, which likely indicates underlying diabetic CKD. HERVE from ATN secondary to dehydration, sepsis, and DKA HD initiated 02/21; vascath replaced on 03/06 Due to surgery we had to hold Thursday's HD, seen during dialysis today on a 3K, 350 BFR, goal 1L as tolerated Remains oligoanuric Avoid IVF; start free water through PEG with tube feeding Continue HD TTS if needed, await possible recovery phase snf HD arrangements have not been made; he may have reached ESRD however we are unable to make that diagnosis at this time. In addition his mental status is not at the level required for outpatient HD. Will monitor for improvement. (2) encephalopathy Plan: persistent; etiology uncertain but likely metabolic ABG not suggesting respiratory component neurology has evaluated s/p PEG placement for nutritional support, will likely need LTC after discharge (3) DKA (diabetic ketoacidoses) ICD Codes: E13.10 - Other specified diabetes mellitus with ketoacidosis without coma Status: Resolved Plan: DKA resolved; A1c is 10 Diabetic control has been better, continue to adjust insulin with primary team. (4) Elevated troponin ICD Codes: R74.8 - Abnormal levels of other serum enzymes Plan: cardiology has evaluated suspect demand ischemia as etiology of elevated troponin levels 2D echo shows EF 25% (5) Sepsis ICD Codes: A41.9 - Sepsis, unspecified organism Status: Acute Plan: Resolving He is off antibiotics 1/2 blood cultures with staph hominis, likely contaminant HIDA scan taken, unable to visualize GB, results showing chronic cholecystitis (6) Dehydration with hypernatremia ICD Codes: E87.0 - Hyperosmolality and hypernatremia Status: Resolved Plan: Corrected, monitor for recurrence Plan (Gely Dill) Plan patient was seen and examined during dialysis. s/p PEG tube placement. Mental status changes: no improvement. Currently he is unstable for outpatient dialysis. Start Epogen for anemia. (Mc Quintanilla MD) Problem Qualifiers (1) Acute renal failure: Qualified Codes: N17.9 - Acute kidney failure, unspecified (2) DKA (diabetic ketoacidoses): (3) Sepsis: Qualified Codes: A41.9 - Sepsis, unspecified organism Gely Dill Mar 10, 2017 09:15 Mc Quintanilla MD Mar 10, 2017 11:25
--- NOTE | 2017-03-10 09:15 | HHI.NPPN ---
Subjective Renal Failure: Chronic, Acute Interval History PEG placed yesterday. Seen during dialysis. His upper extremities are restrained. He is unable to follow commands and he is trashing around in the bed. (Gely Dill) Review of Systems General General Remarks unable to evaluate (Gely Dill) Objective Data Data Vital Signs Date Time Temp Pulse Resp B/P (MAP) Pulse Ox O2 Delivery O2 Flow Rate FiO2 03/10/17 07:59 97 Nasal Cannula 3.00 03/10/17 04:00 97.8 81 20 108/55 (72) 100 03/10/17 00:00 97.6 78 18 107/51 (69) 97 03/09/17 23:00 77 03/09/17 20:00 Nasal Cannula 3.00 03/09/17 20:00 97.7 115 20 108/56 (73) 100 03/09/17 17:00 97.4 79 16 102/70 (81) 99 Nasal Cannula 2 03/09/17 16:45 80 21 99/55 (70) 100 Nasal Cannula 2 03/09/17 16:30 84 14 92/53 (66) 100 Nasal Cannula 3 03/09/17 16:15 96.9 85 21 102/55 (71) 100 Nasal Cannula 3 03/09/17 16:06 97.3 79 18 94/54 (67) 100 03/09/17 15:02 Nasal Cannula 2.00 03/09/17 14:00 80 03/09/17 12:00 97.8 79 23 105/58 (74) 100 03/09/17 12:00 80 03/09/17 10:00 80 (Gely Dill) -: 03/10/17 0620 03/10/17 0620 Imaging Last 72 hours Impressions Abdomen X-Ray 03/08/17 0000 Signed Impressions: Service Date/Time: Wednesday, March 08, 2017 18:51 - CONCLUSION: Interval advancement of nasogastric tube into the stomach. Richard Bess MD Abdomen X-Ray 03/08/17 0000 Signed Impressions: Service Date/Time: Wednesday, March 08, 2017 15:50 - CONCLUSION: 1. Placement of nasogastric tube which could be advanced it least 5 cm. 2. Abnormal opacity remains in the lung bases with blunting of the costophrenic angles consistent with effusions. Richard Bess MD Tubes & Lines: Vas-Cath Tubes & Lines Comment TLC and vascath left IJ Drip Comment None (Gely Dill B. [employer]) Physical Exam General Appearance: Malnourished Appearance Remarks Disheveled, obtunded, restless (Gely Dill [employer]. [employer]) Eyes Eye Exam: Pupils Equal, Pupils Reactive (Gely Dill [employer]. [employer]) Throat Throat Exam: Oral Mucosa [place] & Moist (Gely Dill [employer]. [employer]) Neck Neck Exam: Neck Supple (Gely Dill [employer]. [employer]) Pulmonary Resp Exam: No Distress, Rhonchi, Decreased Bases Resp Remarks irregular in depth and rate (Gely Dill [employer]. [employer]) Cardiology CV Exam: Regular, Normal Sinus Rhythm, Good Perfusion (Gely Dill [employer]. [employer]) Gastrointestinal/Abdomen GI Exam: Soft, Non-Tender, Bowel Sounds Present (Gely Dill [employer]. [employer]) Genitourinary Exam: Bladder Non-Palpable (Gely Dill [employer]. [employer]) Musculoskeletal MS Exam: Joints Intact, Atrophy, Unable to Ambulate (Gely Dill [employer]. [employer]) Integumentary Skin Exam: Clear, Warm, Dry, Intact (Gely Dill [employer]. [employer]) Extremeties Extremities Exam: No Edema, Pedal Pulses Palpable (Gely Dill [employer]. [employer]) Neurologic Neuro Exam: Awake, Moving All Extremities, Obtunded (Gely Dill [employer]. [employer]) VTE Prophylaxis Device: SCDs (Gely Dill [employer]. [employer]) Assessment/Plan Discussed Condition With: Relative Assessment Summary: HERVE/Acute Renal Failure, Acute Tubular Necrosis, Diabetes Mellitus Problem List: (1) Acute renal failure ICD Codes: N17.9 - Acute kidney failure, unspecified Status: Acute Plan: This patient has underlying renal impairment, creatinine 1.8-2 at baseline He has 1.2 g proteinuria, which likely indicates underlying diabetic CKD. HERVE from ATN secondary to dehydration, sepsis, and DKA HD initiated 02/21; vascath replaced on 03/06 Due to surgery we had to hold Thursday's HD, seen during dialysis today on a 3K, 350 BFR, goal 1L as tolerated Remains oligoanuric Avoid IVF; start free water through PEG with tube feeding Continue HD TTS if needed, await possible recovery phase residential HD arrangements have not been made; he may have reached ESRD however we are unable to make that diagnosis at this time. In addition his mental status is not at the level required for outpatient HD. Will monitor for improvement. (2) encephalopathy Plan: persistent; etiology uncertain but likely metabolic ABG not suggesting respiratory component neurology has evaluated s/p PEG placement for nutritional support, will likely need LTC after discharge (3) DKA (diabetic ketoacidoses) ICD Codes: E13.10 - Other specified diabetes mellitus with ketoacidosis without coma Status: Resolved Plan: DKA resolved; A1c is 10 Diabetic control has been better, continue to adjust insulin with primary team. (4) Elevated troponin ICD Codes: R74.8 - Abnormal levels of other serum enzymes Plan: cardiology has evaluated suspect demand ischemia as etiology of elevated troponin levels 2D echo shows EF 25% (5) Sepsis ICD Codes: A41.9 - Sepsis, unspecified organism Status: Acute Plan: Resolving He is off antibiotics 1/2 blood cultures with staph hominis, likely contaminant HIDA scan taken, unable to visualize GB, results showing chronic cholecystitis (6) Dehydration with hypernatremia ICD Codes: E87.0 - Hyperosmolality and hypernatremia Status: Resolved Plan: Corrected, monitor for recurrence Plan (Gley Dill) Plan patient was seen and examined during dialysis. s/p PEG tube placement. Mental status changes: no improvement. Currently he is unstable for outpatient dialysis. Start Epogen for anemia. (Mc Quintanilla MD) Problem Qualifiers (1) Acute renal failure: Qualified Codes: N17.9 - Acute kidney failure, unspecified (2) DKA (diabetic ketoacidoses): (3) Sepsis: Qualified Codes: A41.9 - Sepsis, unspecified organism Gely Dill Mar 10, 2017 09:15 Mc Quintanilla MD Mar 10, 2017 11:25
--- NOTE | 2017-03-10 09:15 | HHI.NPPN ---
Subjective Renal Failure: Chronic, Acute Interval History PEG placed yesterday. Seen during dialysis. His upper extremities are restrained. He is unable to follow commands and he is trashing around in the bed. (Gely Dill) Review of Systems General General Remarks unable to evaluate (Gely Dill) Objective Data Data Vital Signs Date Time Temp Pulse Resp B/P (MAP) Pulse Ox O2 Delivery O2 Flow Rate FiO2 03/10/17 07:59 97 Nasal Cannula 3.00 03/10/17 04:00 97.8 81 20 108/55 (72) 100 03/10/17 00:00 97.6 78 18 107/51 (69) 97 03/09/17 23:00 77 03/09/17 20:00 Nasal Cannula 3.00 03/09/17 20:00 97.7 115 20 108/56 (73) 100 03/09/17 17:00 97.4 79 16 102/70 (81) 99 Nasal Cannula 2 03/09/17 16:45 80 21 99/55 (70) 100 Nasal Cannula 2 03/09/17 16:30 84 14 92/53 (66) 100 Nasal Cannula 3 03/09/17 16:15 96.9 85 21 102/55 (71) 100 Nasal Cannula 3 03/09/17 16:06 97.3 79 18 94/54 (67) 100 03/09/17 15:02 Nasal Cannula 2.00 03/09/17 14:00 80 03/09/17 12:00 97.8 79 23 105/58 (74) 100 03/09/17 12:00 80 03/09/17 10:00 80 (Gely Dill) -: 03/10/17 0620 03/10/17 0620 Imaging Last 72 hours Impressions Abdomen X-Ray 03/08/17 0000 Signed Impressions: Service Date/Time: Wednesday, March 08, 2017 18:51 - CONCLUSION: Interval advancement of nasogastric tube into the stomach. Richard Bess MD Abdomen X-Ray 03/08/17 0000 Signed Impressions: Service Date/Time: Wednesday, March 08, 2017 15:50 - CONCLUSION: 1. Placement of nasogastric tube which could be advanced it least 5 cm. 2. Abnormal opacity remains in the lung bases with blunting of the costophrenic angles consistent with effusions. Richard Bess MD Tubes & Lines: Vas-Cath Tubes & Lines Comment TLC and vascath left IJ Drip Comment None (Gely Dill B. [employer]ILDC[employer] AIDE) Physical Exam General Appearance: Malnourished Appearance Remarks Disheveled, obtunded, restless (Gely Dill B. [employer]IDE) Eyes Eye Exam: Pupils Equal, Pupils Reactive (Gely Dill B. [employer]DC[employer] AIDE) Throat Throat Exam: Oral Mucosa [place] & Moist (Gely Dill B. [employer]DC[employer] AIDE) Neck Neck Exam: Neck Supple (Gely Dill B. [employer]DC[employer] AIDE) Pulmonary Resp Exam: No Distress, Rhonchi, Decreased Bases Resp Remarks irregular in depth and rate (Gely Dill B. [employer]DC[employer] AIDE) Cardiology CV Exam: Regular, Normal Sinus Rhythm, Good Perfusion (Gely Dill B. [employer]DC[employer] AIDE) Gastrointestinal/Abdomen GI Exam: Soft, Non-Tender, Bowel Sounds Present (Gely Dill B. [employer]DC[employer] AIDE) Genitourinary Exam: Bladder Non-Palpable (Gely Dill B. [employer]DC[employer] AIDE) Musculoskeletal MS Exam: Joints Intact, Atrophy, Unable to Ambulate (Gely Dill B. [employer]) Integumentary Skin Exam: Clear, Warm, Dry, Intact (Gely Dill B. [employer]DC[employer] AIDE) Extremeties Extremities Exam: No Edema, Pedal Pulses Palpable (Gely Dill B. [employer]DC[employer] AIDE) Neurologic Neuro Exam: Awake, Moving All Extremities, Obtunded (Gely Dill B. [employer]DC[employer] AIDE) VTE Prophylaxis Device: SCDs (Gely Dill B. [employer]DC[employer] AIDE) Assessment/Plan Discussed Condition With: Relative Assessment Summary: HERVE/Acute Renal Failure, Acute Tubular Necrosis, Diabetes Mellitus Problem List: (1) Acute renal failure ICD Codes: N17.9 - Acute kidney failure, unspecified Status: Acute Plan: This patient has underlying renal impairment, creatinine 1.8-2 at baseline He has 1.2 g proteinuria, which likely indicates underlying diabetic CKD. HERVE from ATN secondary to dehydration, sepsis, and DKA HD initiated 02/21; vascath replaced on 03/06 Due to surgery we had to hold Thursday's HD, seen during dialysis today on a 3K, 350 BFR, goal 1L as tolerated Remains oligoanuric Avoid IVF; start free water through PEG with tube feeding Continue HD TTS if needed, await possible recovery phase [facility] HD arrangements have not been made; he may have reached ESRD however we are unable to make that diagnosis at this time. In addition his mental status is not at the level required for outpatient HD. Will monitor for improvement. (2) encephalopathy Plan: persistent; etiology uncertain but likely metabolic ABG not suggesting respiratory component neurology has evaluated s/p PEG placement for nutritional support, will likely need LTC after discharge (3) DKA (diabetic ketoacidoses) ICD Codes: E13.10 - Other specified diabetes mellitus with ketoacidosis without coma Status: Resolved Plan: DKA resolved; A1c is 10 Diabetic control has been better, continue to adjust insulin with primary team. (4) Elevated troponin ICD Codes: R74.8 - Abnormal levels of other serum enzymes Plan: cardiology has evaluated suspect demand ischemia as etiology of elevated troponin levels 2D echo shows EF 25% (5) Sepsis ICD Codes: A41.9 - Sepsis, unspecified organism Status: Acute Plan: Resolving He is off antibiotics 1/2 blood cultures with staph hominis, likely contaminant HIDA scan taken, unable to visualize GB, results showing chronic cholecystitis (6) Dehydration with hypernatremia ICD Codes: E87.0 - Hyperosmolality and hypernatremia Status: Resolved Plan: Corrected, monitor for recurrence Plan (Gely Dill) Plan patient was seen and examined during dialysis. s/p PEG tube placement. Mental status changes: no improvement. Currently he is unstable for outpatient dialysis. Start Epogen for anemia. (Mc Quintanilla MD) Problem Qualifiers (1) Acute renal failure: Qualified Codes: N17.9 - Acute kidney failure, unspecified (2) DKA (diabetic ketoacidoses): (3) Sepsis: Qualified Codes: A41.9 - Sepsis, unspecified organism Gely Dill Mar 10, 2017 09:15 Mc Quintanilla MD Mar 10, 2017 11:25
[2017-03-10] MEDS: GENTAMICIN SULFATE (DIALYSIS USE ONLY) 20 MG/2 ML VIAL OTHER PRN ×2 (10:18)
[2017-03-10] MEDS: HEPARIN SODIUM - IV 10,000 UNITS/10 ML VIAL PRN ×2 (10:18)
[2017-03-10] MEDS: ALBUMIN 25% INJ 100 ML IV PRN ×2 (10:18)
[2017-03-10] MEDS: EPOETIN ALFA 10,000 UNITS/ML VIAL IV PUSH PRN ×2 (12:34)
[2017-03-10] MEDS: DOCUSATE SODIUM 50 MG/SENNA 8.6 MG TAB PO SCH ×4 (14:40→21:00)
[2017-03-10] MEDS: LACTOBACILLUS ACIDOPHILUS TAB PO SCH ×6 (14:40→18:02)
[2017-03-10] MEDS: ASPIRIN EC 81 MG TABEC PO SCH ×2 (14:40)
[2017-03-10] MEDS: SODIUM CHLORIDE 0.9% FLUSH 10 ML FLUSH IV FLUSH SCH ×4 (14:51→21:50)
--- NOTE | 2017-03-10 15:39 | HHI.GIFU ---
Subjective Remarks Pt resting in bed in NAD, daughters at bedside. PEG tube functioning. About to start TF. (Arianna Penaloza) Objective Vitals I&O Vital Signs Date Time Temp Pulse Resp B/P (MAP) Pulse Ox O2 Delivery O2 Flow Rate FiO2 03/10/17 08:53 Nasal Cannula 3.00 03/10/17 08:53 81 03/10/17 08:00 97.6 80 18 97/54 (68) 93 03/10/17 07:59 97 Nasal Cannula 3.00 03/10/17 04:00 97.8 81 20 108/55 (72) 100 03/10/17 00:00 97.6 78 18 107/51 (69) 97 03/09/17 23:00 77 03/09/17 20:00 Nasal Cannula 3.00 03/09/17 20:00 97.7 115 20 108/56 (73) 100 03/09/17 17:00 97.4 79 16 102/70 (81) 99 Nasal Cannula 2 03/09/17 16:45 80 21 99/55 (70) 100 Nasal Cannula 2 03/09/17 16:30 84 14 92/53 (66) 100 Nasal Cannula 3 03/09/17 16:15 96.9 85 21 102/55 (71) 100 Nasal Cannula 3 03/09/17 16:06 97.3 79 18 94/54 (67) 100 I/O 03/09/17 03/09/17 03/09/17 03/10/17 03/10/17 03/10/17 07:00 15:00 23:00 07:00 15:00 23:00 Intake Total 330 ml 300 ml 0 ml Output Total 0 ml 270 ml 1500 ml Balance 330 ml 300 ml -270 ml -1500 ml Intake Oral 0 ml 0 ml IV Total 0 ml Tube Feeding 330 ml Other 300 ml Output Urine Total 0 ml Gastric Drainage Total 270 ml Hemodialysis 1500 ml # Voids 0 1 # Bowel Movements 1 1 1 Laboratory Laboratory Tests Test 03/10/17 06:20 White Blood Count 7.1 Red Blood Count 2.56 Hemoglobin 7.9 Hematocrit 23.4 Mean Corpuscular Volume 91.5 Mean Corpuscular Hemoglobin 30.8 Mean Corpuscular Hemoglobin Concent 33.7 Red Cell Distribution Width 16.7 Platelet Count 139 Mean Platelet Volume 9.2 Neutrophils (%) (Auto) 86.7 Lymphocytes (%) (Auto) 7.0 Monocytes (%) (Auto) 5.7 Eosinophils (%) (Auto) 0.4 Basophils (%) (Auto) 0.2 Neutrophils # (Auto) 6.1 Lymphocytes # (Auto) 0.5 Monocytes # (Auto) 0.4 Eosinophils # (Auto) 0.0 Basophils # (Auto) 0.0 CBC Comment DIFF FINAL Differential Comment Blood Urea Nitrogen 87 Creatinine 5.95 Random Glucose 147 Calcium Level 7.9 Magnesium Level 2.1 Sodium Level 140 Potassium Level 3.6 Chloride Level 101 Carbon Dioxide Level 27.1 Anion Gap 12 Estimat Glomerular Filtration Rate 11 Date/Time Source Procedure Growth Status 02/19/17 12:10 Blood Peripheral Aerobic Blood Culture - Final Staphylococcus Hominis-Hominis Complete 02/19/17 12:10 Blood Peripheral Anaerobic Blood Culture - Final NO GROWTH IN 5 DAYS Complete 02/19/17 12:10 Urine Catheterized Urine Urine Culture - Final NO GROWTH IN 48 HOURS. Complete Physical Exam HEENT: Normocephalic. NECK: Neck is supple CHEST: CTA. Decreased breath sounds. CARDIAC: RRR. ABDOMEN: Soft, nondistended, nontender; no hepatosplenomegaly; bowel sounds are present in all four quadrants. PEG site free of redness, drainage EXTREMITIES: No clubbing, cyanosis, or edema. SKIN: Normal; no rash; no jaundice. [employer] MECHANIC: Awake. Generalized weakness. (Arianna Penaloza) Assessment and Plan Plan ASSESSMENT: - Dysphagia, FEN. Pt in ICU being treated for multiple medical problems- acute metabolic encephalopathy, NSTEMI, dehydration, sepsis, UTI, arf, respiratory insufficiency, and transaminitis. He has had worsening altered mental status and has not been able to take oral intake for a few days according to the EMR. Storeroom Attendant recommends Nepro at 55cc/hr, as recommended by the java android developer. He is getting this via NGT. Of note, his vascath was dislodged and the nurse reports that he missed a dialysis tx. s/p EGD with PEG placement. found hiatal hernia. About to start TF. PEG functioning for medication admin. PLAN: - okay to start TF - nepro at 55cc/hr - supportive care - GI will sign off, please reconsult if needed Patient seen and examined by Dr. Gonzalez and myself and this note is written on her behalf (Arianna Penaloza) Arianna Penaloza Mar 10, 2017 15:39 Judy Gonzalez MD Mar 10, 2017 18:13
--- NOTE | 2017-03-10 16:27 | HHI.PR ---
Subjective Remarks Follow-up dysphagia and acute kidney injury. Just returned from hemodialysis patient is lethargic. She did with family. Discussed with RN to see restart tube feeding Objective Vitals Vital Signs Date Time Temp Pulse Resp B/P (MAP) Pulse Ox O2 Delivery O2 Flow Rate FiO2 03/10/17 08:53 Nasal Cannula 3.00 03/10/17 08:53 81 03/10/17 08:00 97.6 80 18 97/54 (68) 93 03/10/17 07:59 97 Nasal Cannula 3.00 03/10/17 04:00 97.8 81 20 108/55 (72) 100 03/10/17 00:00 97.6 78 18 107/51 (69) 97 03/09/17 23:00 77 03/09/17 20:00 Nasal Cannula 3.00 03/09/17 20:00 97.7 115 20 108/56 (73) 100 03/09/17 17:00 97.4 79 16 102/70 (81) 99 Nasal Cannula 2 03/09/17 16:45 80 21 99/55 (70) 100 Nasal Cannula 2 03/09/17 16:30 84 14 92/53 (66) 100 Nasal Cannula 3 I/O 03/09/17 03/09/17 03/09/17 03/10/17 03/10/17 03/10/17 07:00 15:00 23:00 07:00 15:00 23:00 Intake Total 330 ml 300 ml 0 ml Output Total 0 ml 270 ml 1500 ml Balance 330 ml 300 ml -270 ml -1500 ml Intake Oral 0 ml 0 ml IV Total 0 ml Tube Feeding 330 ml Other 300 ml Output Urine Total 0 ml Gastric Drainage Total 270 ml Hemodialysis 1500 ml # Voids 0 1 # Bowel Movements 1 1 1 Result Diagram: 03/10/17 0620 03/10/17 0620 Imaging Last Impressions Abdomen X-Ray 03/08/17 0000 Signed Impressions: Service Date/Time: Wednesday, March 08, 2017 18:51 - CONCLUSION: Interval advancement of nasogastric tube into the stomach. Richard Bess MD Chest X-Ray 03/06/17 0000 Signed Impressions: Service Date/Time: Monday, March 06, 2017 16:37 - CONCLUSION: 1. Good position of both left central lines. No evidence of pneumothorax. 2. Stable bilateral lower lung consolidation and right pleural effusion. Dontrell Oneil MD Soft Tissue Neck X-Ray 03/05/17 Signed Impressions: Service Date/Time: February 15:18 - CONCLUSION: Limited exam. No acute abnormality. Dontrell Mcqueen Jr., MD Head CT 02/27/17 Signed Impressions: Service Date/Time: Monday, February 27, 2017 12:47 - CONCLUSION: 1. No acute intracranial abnormality is identified. There are no findings to indicate ischemia and no acute blood products are present. 2. Chronic brain changes include generalized atrophy and periventricular white matter change characteristic of chronic microvascular ischemia. 3. There is trace air within the cavernous sinus bilaterally and in the left superior ophthalmic vein likely related to IV access. Flakito Silva MD Carotid Artery Ultrasound 02/27/17 Signed Impressions: Service Date/Time: Monday, February 27, 2017 14:35 - CONCLUSION: 1. Severe noncalcified plaque in the left carotid bulb and left internal carotid artery with a possible complete occlusion of the left internal carotid artery. No Doppler signal is identified in the vessel which could indicate complete occlusion or severe high-grade stenosis. Consider carotid CTA for further evaluation. 2. There is mild to moderate noncalcified plaque in the right carotid bulb. Less than 50%% stenosis is present within the right internal carotid artery. 3. Please note that the right external carotid artery is not visualized. Flakito Silva MD Hepatobiliary Scan Nuclear Medicine 02/24/17 Signed Impressions: Service Date/Time: Friday, February 24, 2017 12:33 - CONCLUSION: 1. Lack of visualization of the gallbladder. We will have the patient return for delayed imaging. At this point acute cholecystitis versus chronic cholecystitis. Dontrell Mcqueen Jr., MD ADDENDUM: 24-hour delayed imaging shows activity within the gallbladder. This would be consistent with chronic cholecystitis. Dontrell Mcqueen Jr., MD Liver Ultrasound 02/20/17 Signed Impressions: Service Date/Time: Monday, February 20, 2017 10:51 - CONCLUSION: Gallstones and gallbladder wall thickening. There is no intrahepatic biliary duct dilatation. Rylan Wang MD FACR Renal Ultrasound 02/19/17 Signed Impressions: Service Date/Time: February 17:19 - CONCLUSION: No evidence of hydronephrosis. Indwelling Scott catheter with collapsed bladder in thickened bladder wall. Cal Tomlinson MD Objective Remarks GENERAL: WD WN patient in no distress SKIN: No rash or lesions NECK: Trachea midline. No JVD. No Stridor CARDIOVASCULAR: Regular rate and rhythm. Systolic murmur noted RESPIRATORY: No accessory muscle use. Decreased Breath sounds equal bilaterally. GASTROINTESTINAL: Abdomen soft, non-tender, nondistended. MUSCULOSKELETAL: Extremities without clubbing, cyanosis, or edema. No obvious deformities. NEUROLOGICAL: Lethargic. Generalized weakness. Procedures Vascath 2, central line, PEG A/P Problem List: (1) Acute metabolic encephalopathy ICD Code: G93.41 - Metabolic encephalopathy (2) Altered mental status ICD Code: R41.82 - Altered mental status, unspecified Status: Acute (3) DKA (diabetic ketoacidoses) ICD Code: E13.10 - Other specified diabetes mellitus with ketoacidosis without coma Status: Resolved (4) Non-STEMI (non-ST elevated myocardial infarction) ICD Code: I21.4 - Non-ST elevation (NSTEMI) myocardial infarction Status: Acute (5) Dehydration with hypernatremia ICD Code: E87.0 - Hyperosmolality and hypernatremia Status: Resolved (6) Sepsis ICD Code: A41.9 - Sepsis, unspecified organism Status: Acute (7) UTI (urinary tract infection) ICD Code: N39.0 - Urinary tract infection, site not specified Status: Acute (8) Acute renal failure ICD Code: N17.9 - Acute kidney failure, unspecified Status: Acute (9) Hyperglycemia ICD Code: R73.9 - Hyperglycemia, unspecified Status: Acute (10) Lactic acidemia ICD Code: E87.2 - Acidosis (11) Transaminitis ICD Code: R74.0 - Nonspecific elevation of levels of transaminase and lactic acid dehydrogenase [LDH] (12) Respiratory insufficiency ICD Code: R06.89 - Other abnormalities of breathing Assessment and Plan Acute encephalopathy, recurrent -repeated CT with no acute abnormality. -Treat agitation with when necessary Haldol -rpt EEG without seizure. Carotid sonogram showed left carotid occlusion and 50 % stenosis on the right carotid. Patient on aspirin. Patient on statin currently on hold because of transaminitis. Telemetry shows nonsustained V. tach but was asymptomatic during the episode. Holter monitor results as follows normal Sinus rhythm with an average heart rate of 86 beats per minute. There were periods of sinus tachycardia up to 124 beats per minute at 9:10pm. There were 3,693 PVCs, 51 cycles of ventricular bigeminy, 419 ventricular couplets and 14 runs of wide complex tachycardia, the longest being 3 beats with a maximum heart rate of 145 beats per minute. The 3 beat runs of wide complex tachycardia are polymorphic. There are no PACs. -Normal ammonia. 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 Image interpreted by me. Improving - keep on oxygen as needed to keep O2 sat >90% - continue neb treatment. - Lasix if tolerated elevated troponin Hypertension cardiomyopathy - echo with EF 25% - Aspirin - Metoprolol 25 mg every 8 hours. Unable to start MILDRED inhibitor secondary to acute kidney injury - Avoid statins due to transaminitis - evaluated by cardiology. Transaminitis chronic cholecystitis - Monitor liver enzymes Acute kidney injury superimposed on chronic kidney disease . Oliguric to anuric Severe dehydration - Baseline creatinine 1.8 to 2. Acute worsening secondary to severe dehydration , ATN and DKA - Monitor renal function closely. - Creatinine is rising with episodes of confusion likely secondary to uremia. Nephrology to manage hemodialysis Probable sepsis UTI -- one bottle of the blood cultures with staph coag. negative-likely contamination. -ID consult appreciated status post Levaquin and Flagyl diarrhea- stool negative for c-diff. Anemia thrombocytopenia from Sepsis/DIC -Resolved thrombocytopenia -hematology following. -Monitor CBC. DKA-resolved now hyperglycemic secondary to tube feeding -continue sliding scale coverage. -adjust levemir, A1c 10. Hold off with Levemir dosing at night -continue to monitor for hypoglycemia FEN. Tube feeding via PEG PROPH: - Bilateral lower extremity SCDs. Restart heparin after Vas-Cath Discharge Planning Needs rehabilitation. According to renal, patient not ready for outpatient hemodialysis Problem Qualifiers (1) Altered mental status: Qualified Codes: R41.82 - Altered mental status, unspecified (2) DKA (diabetic ketoacidoses): (3) Sepsis: Qualified Codes: A41.9 - Sepsis, unspecified organism (4) UTI (urinary tract infection): (5) Acute renal failure: Qualified Codes: N17.9 - Acute kidney failure, unspecified Isrrael Tamayo MD Mar 10, 2017 16:27
[2017-03-11] VITALS (11 sets, daily range): BP systolic 90–121; BP diastolic 51–62; PULSE 75–98; RESP 12–22; TEMP 97.1–97.8; O2SAT 92–100
[2017-03-11] MEDS: RESP: ALBUTEROL 2.5 MG/IPRATROPIUM 0.5 MG NEB (PRN) INH ×6 (01:14→17:13)
[2017-03-11] MEDS: CHLORHEXIDINE GLUCONATE 2 % 1 PACK (2 CLOTHS) TOP SCH ×2 (04:00)
[2017-03-11] MEDS: METOPROLOL TARTRATE 25 MG TAB PO SCH ×2 (05:17)
[2017-03-11 05:59] LABS: AUTOMATED NEUTROPHIL # 5.8 TH/MM3 (1.8-7.7); BASOPHIL % 0.4 % (0.0-2.0); EOSINOPHIL % 0.4 % (0.0-4.0); HEMATOCRIT 24.5 % (39.0-51.0); HEMOGLOBIN 8.2 GM/DL (13.0-17.0); LYMPH % 10.3 % (9.0-44.0); LYMPHOCYTE # 0.7 TH/MM3 (1.0-4.8); MEAN CELL VOLUME 93.1 FL (80.0-100.0); MEAN CORPUSCULAR HEMOGLOBIN 31.2 PG (27.0-34.0); MEAN CORPUSCULAR HGB CONC 33.5 % (32.0-36.0); MONOCYTE # 0.7 TH/MM3 (0-0.9); NEUT % 78.9 % (16.0-70.0); PLATELET COUNT 111 TH/MM3 (150-450); RED BLOOD COUNT 2.63 MIL/MM3 (4.50-5.90); RED CELL DISTRIBUTION WIDTH 18.2 % (11.6-17.2); WHITE BLOOD COUNT 7.3 TH/MM3 (4.0-11.0)
[2017-03-11 06:36] LABS: ALBUMIN 2.8 GM/DL (3.4-5.0); BICARBONATE 25.7 MEQ/L (21.0-32.0); CALCIUM 8.3 MG/DL (8.5-10.1); CREATININE 4.67 MG/DL (0.60-1.30); PHOSPHORUS 3.7 MG/DL (2.5-4.9)
[2017-03-11] MEDS: RESP: ALBUTEROL 2.5 MG/IPRATROPIUM 0.5 MG NEB (SCH) NEB ×6 (08:28→19:14)
[2017-03-11] MEDS: DOCUSATE SODIUM 50 MG/SENNA 8.6 MG TAB PO SCH ×2 (08:54)
[2017-03-11] MEDS: LACTOBACILLUS ACIDOPHILUS TAB PO SCH ×2 (08:54)
[2017-03-11] MEDS: ASPIRIN EC 81 MG TABEC PO SCH ×2 (08:54)
[2017-03-11] MEDS: INSULIN DETEMIR 100 UNITS/ML VIAL SQ SCH ×4 (08:55→23:06)
[2017-03-11] MEDS: INSULIN ASPART SUPPLEMENTAL SCALE SQ SCH ×8 (08:55→23:05)
[2017-03-11] MEDS: SODIUM CHLORIDE 0.9% FLUSH 10 ML FLUSH IV FLUSH SCH ×4 (08:56→23:05)
--- NOTE | 2017-03-11 09:56 | HHI.NPPN ---
Subjective Renal Failure: Chronic, Acute Interval History Mental status is the same. His urine output has improved. Daughter is at the bedside. (Gely Dill) Review of Systems General General Remarks unable to evaluate (Gely Dill) Objective Data Data Vital Signs Date Time Temp Pulse Resp B/P (MAP) Pulse Ox O2 Delivery O2 Flow Rate FiO2 03/11/17 04:00 97.5 98 20 118/55 (76) 98 03/11/17 01:20 98 Nasal Cannula 3.00 03/11/17 00:00 97.8 75 20 94/53 (67) 100 03/10/17 20:02 97 Nasal Cannula 3.00 03/10/17 20:00 82 03/10/17 20:00 98.2 90 18 102/59 (73) 100 03/10/17 20:00 Nasal Cannula 3.00 21 03/10/17 16:00 98.0 81 18 91/53 (66) 95 (Gely Dill) -: 03/11/17 0550 03/11/17 0550 Tubes & Lines: Vas-Cath Tubes & Lines Comment TLC and vascath left IJ Drip Comment None (Gely Dill) Physical Exam General Appearance: Malnourished Appearance Remarks Disheveled, obtunded, restless (Gely Dill) Eyes Eye Exam: Pupils Equal, Pupils Reactive (Gely Dill) Throat Throat Exam: Oral Mucosa Idanha & Moist (Gely Dill) Neck Neck Exam: Neck Supple (Gely Dill) Pulmonary Resp Exam: No Distress, Rhonchi, Decreased Bases Resp Remarks irregular in depth and rate (Gely Dill) Cardiology CV Exam: Regular, Normal Sinus Rhythm, Good Perfusion (Gely Dill) Gastrointestinal/Abdomen GI Exam: Soft, Non-Tender, Bowel Sounds Present (Gely Dill) Genitourinary Exam: Bladder Non-Palpable (Gely Dill) Musculoskeletal MS Exam: Joints Intact, Atrophy, Unable to Ambulate (Gely Dill) Integumentary Skin Exam: Clear, Warm, Dry, Intact (Gely Dill) Extremeties Extremities Exam: No Edema, Pedal Pulses Palpable (Gely Dill) Neurologic Neuro Exam: Awake, Moving All Extremities, Obtunded (Gely Dill) VTE Prophylaxis Device: SCDs (Gely Dill) Assessment/Plan Discussed Condition With: Daughter Assessment Summary: HERVE/Acute Renal Failure, Acute Tubular Necrosis, Diabetes Mellitus Problem List: (1) Acute renal failure ICD Codes: N17.9 - Acute kidney failure, unspecified Status: Acute Plan: This patient has underlying renal impairment, creatinine 1.8-2 at baseline He has 1.2 g proteinuria, which 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 In addition his mental status is not at the level required for outpatient HD. Will monitor for changes. (2) encephalopathy Plan: etiology uncertain, likely metabolic monitor mental status work up has been negative (3) DKA (diabetic ketoacidoses) ICD Codes: E13.10 - Other specified diabetes mellitus with ketoacidosis without coma Status: Resolved Plan: DKA resolved; A1c is 10 Diabetic control has been better, continue to adjust insulin with primary team. (4) Elevated troponin ICD Codes: R74.8 - Abnormal levels of other serum enzymes Plan: cardiology has evaluated suspect demand ischemia as etiology of elevated troponin levels 2D echo shows EF 25% (5) Sepsis ICD Codes: A41.9 - Sepsis, unspecified organism Status: Acute Plan: Resolving He is off antibiotics 1/2 blood cultures with staph hominis, likely contaminant HIDA scan taken, unable to visualize GB, results showing chronic cholecystitis (6) Dehydration with hypernatremia ICD Codes: E87.0 - Hyperosmolality and hypernatremia Status: Resolved Plan: Corrected, monitor for recurrence Plan (Gely Dill) Plan patient was seen and examined. Agree with above assessment and plan. Patient's urine output may have improved. Continue to monitor urine output and renal labs. Dialysis as needed. It is unclear if he has reached ESRD. (Mc Quintanilla MD) Problem Qualifiers (1) Acute renal failure: Qualified Codes: N17.9 - Acute kidney failure, unspecified (2) DKA (diabetic ketoacidoses): (3) Sepsis: Qualified Codes: A41.9 - Sepsis, unspecified organism Gely Dill [facility] Mar 11, 2017 09:56 Mc Quintanilla MD Mar 11, 2017 19:32
[2017-03-11] MEDS ORDERED: INSULIN DETEMIR 100 UNITS/ML VIAL SQ ONE ×2 (11:30)
--- NOTE | 2017-03-11 11:35 | HHI.HCPN ---
Reason for visit a. To assist with evaluation and management of symptoms including: Agitation, restlessness, encephalopathy b. To assist medical decision maker(s) with: better understanding of current medical conditions; weighing benefits/burdens of medical treatment options; making medical treatment decisions. . Subjective/Interval History Pt was dialysed yesterday. Patient still in restraints agitated, restless, confused from encephalopathy, and cannot give a history. Pt just look at me and does not answer my questions. Try to move is upper ext but is in restraints. Peg tube place, tube feeding is running. . Family/friend interactions I gave updates of pt's clinical condition to daughter. Answered her questions on electrolytes and IV Fluids. Review again the challenges he has : including longterm dialysis (which is looking more and more to be the case), an EF of 20%, his fraility, debility, and agitation (compliance with medical treatment) She spoke about the miracles and hoping that pt improve. I spoke about how miracles sometimes is subtle and not dramatic, and that the fact her father is still here maybe a miracle itself. I also said that miracles happens infrequently and that is why they are called miracles. Ask daughter to make sure pt does not suffer, spoke about quality of life. She is appreciative of the talk. Goals remains aggressive. Advance Directives Living Will: Never completed Health Care Surrogate: Never completed Durable Power of Presales Senior Specialist: Never completed Objective Vital Signs Date Time Temp Pulse Resp B/P (MAP) Pulse Ox O2 Delivery O2 Flow Rate FiO2 03/11/17 04:00 97.5 98 20 118/55 (76) 98 03/11/17 01:20 98 Nasal Cannula 3.00 03/11/17 00:00 97.8 75 20 94/53 (67) 100 03/10/17 20:02 97 Nasal Cannula 3.00 03/10/17 20:00 82 03/10/17 20:00 98.2 90 18 102/59 (73) 100 03/10/17 20:00 Nasal Cannula 3.00 21 03/10/17 16:00 98.0 81 18 91/53 (66) 95 Intake & Output 03/11/17 03/11/17 07:00 19:00 Intake Total 853 ml Output Total 25 ml Balance 828 ml Intake Oral 0 ml Tube Feeding 653 ml Other 200 ml Output Urine Total 25 ml # Bowel Movements 1 Physical Exam CONSTITUTIONAL/GENERAL: This is an elderly, weak,lethargic patient, confused TUBES/LINES/DRAINS: Vas-Cath left neck, central line left neck, supplemental oxygen, NG tube NECK: Trachea midline. CARDIOVASCULAR: Regular rate and rhythm without murmurs, gallops, or rubs. No JVD. RESPIRATORY/CHEST: Symmetric respirations. Lungs are clear -- wheezy sound very much upper airway. GASTROINTESTINAL: Abdomen soft, non-tender, nondistended. No hepato-splenomegaly , or palpable masses. No guarding. Bowel sounds hypoactive GENITOURINARY: Without palpable bladder distension. Condom catheter in place. MUSCULOSKELETAL: Extremities without clubbing, cyanosis, or edema. NEUROLOGICAL: Lethargic but restless ds. Not able to follow commands . Moving all extremities. PSYCHIATRIC: confused, on restraints, and restless. . Diagnostic Tests Laboratory Laboratory Tests Test 03/09/17 04:49 03/10/17 06:20 03/11/17 05:50 White Blood Count 8.8 TH/MM3 (4.0-11.0) 7.1 TH/MM3 (4.0-11.0) 7.3 TH/MM3 (4.0-11.0) Red Blood Count 2.81 MIL/MM3 (4.50-5.90) 2.56 MIL/MM3 (4.50-5.90) 2.63 MIL/MM3 (4.50-5.90) Hemoglobin 8.7 GM/DL (13.0-17.0) 7.9 GM/DL (13.0-17.0) 8.2 GM/DL (13.0-17.0) Hematocrit 25.4 % (39.0-51.0) 23.4 % (39.0-51.0) 24.5 % (39.0-51.0) Mean Corpuscular Volume 90.3 FL (80.0-100.0) 91.5 FL (80.0-100.0) 93.1 FL (80.0-100.0) Mean Corpuscular Hemoglobin 31.0 PG (27.0-34.0) 30.8 PG (27.0-34.0) 31.2 PG (27.0-34.0) Mean Corpuscular Hemoglobin Concent 34.4 % (32.0-36.0) 33.7 % (32.0-36.0) 33.5 % (32.0-36.0) Red Cell Distribution Width 17.0 % (11.6-17.2) 16.7 % (11.6-17.2) 18.2 % (11.6-17.2) Platelet Count 153 TH/MM3 (150-450) 139 TH/MM3 (150-450) 111 TH/MM3 (150-450) Mean Platelet Volume 8.9 FL (7.0-11.0) 9.2 FL (7.0-11.0) 9.0 FL (7.0-11.0) Neutrophils (%) (Auto) 79.3 % (16.0-70.0) 86.7 % (16.0-70.0) 78.9 % (16.0-70.0) Lymphocytes (%) (Auto) 8.7 % (9.0-44.0) 7.0 % (9.0-44.0) 10.3 % (9.0-44.0) Monocytes (%) (Auto) 11.2 % (0.0-8.0) 5.7 % (0.0-8.0) 10.0 % (0.0-8.0) Eosinophils (%) (Auto) 0.5 % (0.0-4.0) 0.4 % (0.0-4.0) 0.4 % (0.0-4.0) Basophils (%) (Auto) 0.3 % (0.0-2.0) 0.2 % (0.0-2.0) 0.4 % (0.0-2.0) Neutrophils # (Auto) 7.0 TH/MM3 (1.8-7.7) 6.1 TH/MM3 (1.8-7.7) 5.8 TH/MM3 (1.8-7.7) Lymphocytes # (Auto) 0.8 TH/MM3 (1.0-4.8) 0.5 TH/MM3 (1.0-4.8) 0.7 TH/MM3 (1.0-4.8) Monocytes # (Auto) 1.0 TH/MM3 (0-0.9) 0.4 TH/MM3 (0-0.9) 0.7 TH/MM3 (0-0.9) Eosinophils # (Auto) 0.0 TH/MM3 (0-0.4) 0.0 TH/MM3 (0-0.4) 0.0 TH/MM3 (0-0.4) Basophils # (Auto) 0.0 TH/MM3 (0-0.2) 0.0 TH/MM3 (0-0.2) 0.0 TH/MM3 (0-0.2) CBC Comment DIFF FINAL DIFF FINAL DIFF FINAL Differential Comment Blood Urea Nitrogen 80 MG/DL (7-18) 87 MG/DL (7-18) 62 MG/DL (7-18) Creatinine 5.47 MG/DL (0.60-1.30) 5.95 MG/DL (0.60-1.30) 4.67 MG/DL (0.60-1.30) Random Glucose 157 MG/DL (74-106) 147 MG/DL (74-106) 324 MG/DL (74-106) Calcium Level 8.4 MG/DL (8.5-10.1) 7.9 MG/DL (8.5-10.1) 8.3 MG/DL (8.5-10.1) Phosphorus Level 5.3 MG/DL (2.5-4.9) 3.7 MG/DL (2.5-4.9) Magnesium Level 2.2 MG/DL (1.5-2.5) 2.1 MG/DL (1.5-2.5) Sodium Level 141 MEQ/L (136-145) 140 MEQ/L (136-145) 135 MEQ/L (136-145) Potassium Level 3.4 MEQ/L (3.5-5.1) 3.6 MEQ/L (3.5-5.1) 3.8 MEQ/L (3.5-5.1) Chloride Level 100 MEQ/L (98-107) 101 MEQ/L (98-107) 97 MEQ/L (98-107) Carbon Dioxide Level 28.5 MEQ/L (21.0-32.0) 27.1 MEQ/L (21.0-32.0) 25.7 MEQ/L (21.0-32.0) Anion Gap 13 MEQ/L (5-15) 12 MEQ/L (5-15) 12 MEQ/L (5-15) Estimat Glomerular Filtration Rate 12 ML/MIN (>89) 11 ML/MIN (>89) 15 ML/MIN (>89) Albumin 2.8 GM/DL (3.4-5.0) Result Diagram: 03/11/17 0550 03/11/17 0550 Imaging Last Impressions Abdomen X-Ray 03/08/17 0000 Signed Impressions: Service Date/Time: Wednesday, March 08, 2017 18:51 - CONCLUSION: Interval advancement of nasogastric tube into the stomach. Richard Bess MD Chest X-Ray 03/06/17 0000 Signed Impressions: Service Date/Time: Monday, March 06, 2017 16:37 - CONCLUSION: 1. Good position of both left central lines. No evidence of pneumothorax. 2. Stable bilateral lower lung consolidation and right pleural effusion. Dontrell Oneil MD Soft Tissue Neck X-Ray 03/05/17 0000 Signed Impressions: Service Date/Time: February 15:18 - CONCLUSION: Limited exam. No acute abnormality. Dontrell Mcqueen Jr., MD Head CT 02/27/17 0000 Signed Impressions: Service Date/Time: Monday, February 27, 2017 12:47 - CONCLUSION: 1. No acute intracranial abnormality is identified. There are no findings to indicate ischemia and no acute blood products are present. 2. Chronic brain changes include generalized atrophy and periventricular white matter change characteristic of chronic microvascular ischemia. 3. There is trace air within the cavernous sinus bilaterally and in the left superior ophthalmic vein likely related to IV access. Flakito Silva MD Carotid Artery Ultrasound 02/27/17 0000 Signed Impressions: Service Date/Time: Monday, February 27, 2017 14:35 - CONCLUSION: 1. Severe noncalcified plaque in the left carotid bulb and left internal carotid artery with a possible complete occlusion of the left internal carotid artery. No Doppler signal is identified in the vessel which could indicate complete occlusion or severe high-grade stenosis. Consider carotid CTA for further evaluation. 2. There is mild to moderate noncalcified plaque in the right carotid bulb. Less than 50%% stenosis is present within the right internal carotid artery. 3. Please note that the right external carotid artery is not visualized. Flakito Silva MD Hepatobiliary Scan Nuclear Medicine 02/24/17 0000 Signed Impressions: Service Date/Time: Friday, February 24, 2017 12:33 - CONCLUSION: 1. Lack of visualization of the gallbladder. We will have the patient return for delayed imaging. At this point acute cholecystitis versus chronic cholecystitis. Dontrell Mcqueen Jr., MD ADDENDUM: 24-hour delayed imaging shows activity within the gallbladder. This would be consistent with chronic cholecystitis. Dontrell Mcqueen Jr., MD Liver Ultrasound 02/20/17 0000 Signed Impressions: Service Date/Time: Monday, February 20, 2017 10:51 - CONCLUSION: Gallstones and gallbladder wall thickening. There is no intrahepatic biliary duct dilatation. Rylan Wang MD FACR Renal Ultrasound 02/19/17 0000 Signed Impressions: Service Date/Time: February 17:19 - CONCLUSION: No evidence of hydronephrosis. Indwelling Scott catheter with collapsed bladder in thickened bladder wall. Cal Tomlinson MD Procedures Left subclavian line 02/19/17 Vas-Cath placement 02/21/17 Vas cath placement 03/05/17 Central line placement 03/05/17 . Assessment and Plan Disease Oriented Problem List: (1) encephalopathy, likely due to multiple medical issues, sepsis, renal failure (2) acute renal failure, history of chronic kidney disease; possible ATN (3) elevated transaminases and abnormal HIDA scan Comment: Hepatobiliary scan from 02/24/17 consistent with chronic cholecystitis. LFTs improving but not normal. . 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 One daughter and 3 sons, estranged from the 3 sons. Spiritual: Not spiritual quaker but daughter does want fashion patternmaker visits for him. Legal: The patient lacks capacity for decision-making, and it is uncertain whether he will regain that capacity. He has 4 children, but is estranged from his 3 sons, and they have thus far been unwilling to speak with us or participate in decision-making. Therefore, the patient's daughter Jakub Crawford is his proxy decision-maker. We have made it clear that we are available to speak with any of his sons if they call. Ethical issues impacting care: No known ethical issues. . Important Contacts Daughter/HCP: Jakub Crawford [phone] Granddaughter: Renae Rocha [phone] . Prognosis Patient has been able to improve during the course of the hospitalization, but now having setbacks. Overall clinical picture would suggest high likelihood of ongoing decline and need for recurrent hospitalizations should he survive this one. . . . Code Status: Full Code Plan == FULL CODE - daughter was encouraged by his initial improvement , still sees him as having the potential for recovery and continues to desire full aggressive care. == DECISION-MAKING: The patient lacks capacity for decision-making, and the patient's daughter Jakub Crawford is his proxy decision-maker. == GOALS:Another discussion 03/11 with daughter. Review again the challenges he has with lobsterman dialysis, which is looking more and more to be the case, an EF of 20%, his fraility, debility, and agitation (compliance with medical treatment) She spoke about the miracles and hoping that pt improve. I spoke about how miracles sometimes is subtle and not dramatic, and that her father being still alive, despite being so ill itself maybe the miracle. But I emphasize sometimes miracle itself just means more time, with family, and not full recover. I also said that miracles happens infrequently and that is why they are called miracles. Ask daughter to make sure pt does not suffer, spoke about quality of life. She is appreciative of the talk. Goals remains aggressive. == SYMPTOMS: * Agitation/ encephalopathy/confusion-- multifactorial, encephalopathy, renal disease, general decline. Not new med recommendation at this time. == Palliative care will continue to follow to assist with symptom management and to further evaluate goals of medical treatment as the clinical course evolves; but on a more limited basis. It is anticipated that goals of change will not change unless there is another significant decline. Attestation To help prompt me to consider important information that might be impacting today's encounter and assessment, information from prior notes written by myself or my colleagues may have been "brought forward" into today's note. My signature on this note, however, is an attestation that I personally performed the exam, history, and/or decision-making noted today, and, unless otherwise indicated, the interactions with patient, family, and staff as well as the review of records all occurred today. I also attest that the listed assessment and stated plan reflect my best clinical judgment today based on the combination of historical information, prior notes, and today's exam/ interactions. When time spent is documented, it refers only to time spent today by the signer, or if indicated, combined time spent today by collaborating physician/nurse practitioner. Talha Poole MD Mar 11, 2017 11:35
--- NOTE | 2017-03-11 13:51 | HHI.PR ---
Subjective Remarks Follow-up encephalopathy and acute kidney injury. Remains lethargic. Minimal urine output. Tolerating tube feeding. Discussed with RN Objective Vitals Vital Signs Date Time Temp Pulse Resp B/P (MAP) Pulse Ox O2 Delivery O2 Flow Rate FiO2 03/11/17 09:00 3.00 21 03/11/17 08:00 97.7 86 12 114/62 (79) 95 03/11/17 04:00 97.5 98 20 118/55 (76) 98 03/11/17 01:20 98 Nasal Cannula 3.00 03/11/17 00:00 97.8 75 20 94/53 (67) 100 03/10/17 20:02 97 Nasal Cannula 3.00 03/10/17 20:00 82 03/10/17 20:00 98.2 90 18 102/59 (73) 100 03/10/17 20:00 Nasal Cannula 3.00 21 03/10/17 16:00 98.0 81 18 91/53 (66) 95 I/O 03/10/17 03/10/17 03/10/17 03/11/17 03/11/17 03/11/17 07:00 15:00 23:00 07:00 15:00 23:00 Intake Total 0 ml 0 ml 853 ml Output Total 270 ml 1500 ml 1030 ml 25 ml Balance -270 ml -1500 ml -1030 ml 828 ml Intake Oral 0 ml 0 ml 0 ml Tube Feeding 653 ml Other 200 ml Output Urine Total 1000 ml 25 ml Gastric Drainage Total 270 ml 30 ml Hemodialysis 1500 ml # Voids 1 # Bowel Movements 1 1 1 Result Diagram: 03/11/17 0550 03/11/17 0550 Imaging Last Impressions Abdomen X-Ray 03/08/17 0000 Signed Impressions: Service Date/Time: Wednesday, March 08, 2017 18:51 - CONCLUSION: Interval advancement of nasogastric tube into the stomach. Richard Bess MD Chest X-Ray 03/06/17 0000 Signed Impressions: Service Date/Time: Monday, March 06, 2017 16:37 - CONCLUSION: 1. Good position of both left central lines. No evidence of pneumothorax. 2. Stable bilateral lower lung consolidation and right pleural effusion. Dontrell Oneil MD Soft Tissue Neck X-Ray 03/05/17 0000 Signed Impressions: Service Date/Time: February 15:18 - CONCLUSION: Limited exam. No acute abnormality. Dontrell Mcqueen Jr., MD Head CT 02/27/17 Signed Impressions: Service Date/Time: Monday, February 27, 2017 12:47 - CONCLUSION: 1. No acute intracranial abnormality is identified. There are no findings to indicate ischemia and no acute blood products are present. 2. Chronic brain changes include generalized atrophy and periventricular white matter change characteristic of chronic microvascular ischemia. 3. There is trace air within the cavernous sinus bilaterally and in the left superior ophthalmic vein likely related to IV access. Flakito Silva MD Carotid Artery Ultrasound 02/27/17 Signed Impressions: Service Date/Time: Monday, February 27, 2017 14:35 - CONCLUSION: 1. Severe noncalcified plaque in the left carotid bulb and left internal carotid artery with a possible complete occlusion of the left internal carotid artery. No Doppler signal is identified in the vessel which could indicate complete occlusion or severe high-grade stenosis. Consider carotid CTA for further evaluation. 2. There is mild to moderate noncalcified plaque in the right carotid bulb. Less than 50%% stenosis is present within the right internal carotid artery. 3. Please note that the right external carotid artery is not visualized. Flakito Silva MD Hepatobiliary Scan Nuclear Medicine 02/24/17 Signed Impressions: Service Date/Time: Friday, February 24, 2017 12:33 - CONCLUSION: 1. Lack of visualization of the gallbladder. We will have the patient return for delayed imaging. At this point acute cholecystitis versus chronic cholecystitis. Dontrell Mcqueen Jr., MD ADDENDUM: 24-hour delayed imaging shows activity within the gallbladder. This would be consistent with chronic cholecystitis. Dontrell Mcqueen Jr., MD Liver Ultrasound 02/20/17 Signed Impressions: Service Date/Time: Monday, February 20, 2017 10:51 - CONCLUSION: Gallstones and gallbladder wall thickening. There is no intrahepatic biliary duct dilatation. Rylan Wang MD FACR Renal Ultrasound 02/19/17 Signed Impressions: Service Date/Time: February 17:19 - CONCLUSION: No evidence of hydronephrosis. Indwelling Scott catheter with collapsed bladder in thickened bladder wall. Cal Tomlinson MD Objective Remarks GENERAL: WD WN patient in no distress SKIN: No rash or lesions NECK: Trachea midline. No JVD. No Stridor CARDIOVASCULAR: Regular rate and rhythm. Systolic murmur noted RESPIRATORY: No accessory muscle use. Decreased Breath sounds equal bilaterally. GASTROINTESTINAL: Abdomen soft, non-tender, nondistended. MUSCULOSKELETAL: Extremities without clubbing, cyanosis, or edema. No obvious deformities. NEUROLOGICAL: Lethargic. Generalized weakness. Not following commands Procedures Vascath 2, central line, PEG A/P Problem List: (1) Acute metabolic encephalopathy ICD Code: G93.41 - Metabolic encephalopathy (2) Altered mental status ICD Code: R41.82 - Altered mental status, unspecified Status: Acute (3) DKA (diabetic ketoacidoses) ICD Code: E13.10 - Other specified diabetes mellitus with ketoacidosis without coma Status: Resolved (4) Non-STEMI (non-ST elevated myocardial infarction) ICD Code: I21.4 - Non-ST elevation (NSTEMI) myocardial infarction Status: Acute (5) Dehydration with hypernatremia ICD Code: E87.0 - Hyperosmolality and hypernatremia Status: Resolved (6) Sepsis ICD Code: A41.9 - Sepsis, unspecified organism Status: Acute (7) UTI (urinary tract infection) ICD Code: N39.0 - Urinary tract infection, site not specified Status: Acute (8) Acute renal failure ICD Code: N17.9 - Acute kidney failure, unspecified Status: Acute (9) Hyperglycemia ICD Code: R73.9 - Hyperglycemia, unspecified Status: Acute (10) Lactic acidemia ICD Code: E87.2 - Acidosis (11) Transaminitis ICD Code: R74.0 - Nonspecific elevation of levels of transaminase and lactic acid dehydrogenase [LDH] (12) Respiratory insufficiency ICD Code: R06.89 - Other abnormalities of breathing Assessment and Plan Acute encephalopathy, recurrent and multifactorial. Not improving -repeated CT with no acute abnormality. -Treat agitation with when necessary Haldol -rpt EEG without seizure. Carotid sonogram showed left carotid occlusion and 50 % stenosis on the right carotid. Patient on aspirin. Patient on statin currently on hold because of transaminitis. Telemetry shows nonsustained V. tach but was asymptomatic during the episode. Holter monitor results as follows normal Sinus rhythm with an average heart rate of 86 beats per minute. There were periods of sinus tachycardia up to 124 beats per minute at 9:10pm. There were 3,693 PVCs, 51 cycles of ventricular bigeminy, 419 ventricular couplets and 14 runs of wide complex tachycardia, the longest being 3 beats with a maximum heart rate of 145 beats per minute. The 3 beat runs of wide complex tachycardia are polymorphic. There are no PACs. -Normal ammonia. -Repeat ABG. Sleep study outpatient -Status post neurology evaluation believes this is metabolic. Nephrology may need to adjust hemodialysis as he initially improved after hemodialysis over the weekend Respiratory insufficiency with fluid overload/congenital failure on chest x- ray. Image interpreted by me. Stable - keep on oxygen as needed to keep O2 sat >90% - continue neb treatment. - Lasix if tolerated elevated troponin Hypertension cardiomyopathy - echo with EF 25% - Aspirin - Metoprolol 25 mg every 8 hours. Unable to start MILDRED inhibitor secondary to acute kidney injury - Avoid statins due to transaminitis - evaluated by cardiology. Transaminitis chronic cholecystitis - Monitor liver enzymes Acute kidney injury superimposed on chronic kidney disease . Oliguric to anuric Severe dehydration - Baseline creatinine 1.8 to 2. Acute worsening secondary to severe dehydration , ATN and DKA - Monitor renal function closely. - Creatinine is rising with episodes of confusion likely secondary to uremia. Nephrology to manage hemodialysis Probable sepsis UTI -- one bottle of the blood cultures with staph coag. negative-likely contamination. -ID consult appreciated status post Levaquin and Flagyl diarrhea- stool negative for c-diff. Anemia thrombocytopenia from Sepsis/DIC -Resolved thrombocytopenia -hematology following. -Monitor CBC. DKA-resolved now hyperglycemic secondary to tube feeding -continue sliding scale coverage. -adjust levemir increased to 8 units twice a day, A1c 10. -Hypoglycemia protocol FEN. Tube feeding via PEG PROPH: - Bilateral lower extremity SCDs. Restart heparin after Vas-Cath Discharge Planning Needs rehabilitation. According to renal, patient not ready for outpatient hemodialysis. Despite best efforts, patient has not improved clinically. Family wants to continue aggressive treatment. Palliative care following Problem Qualifiers (1) Altered mental status: Qualified Codes: R41.82 - Altered mental status, unspecified (2) DKA (diabetic ketoacidoses): (3) Sepsis: Qualified Codes: A41.9 - Sepsis, unspecified organism (4) UTI (urinary tract infection): (5) Acute renal failure: Qualified Codes: N17.9 - Acute kidney failure, unspecified Isrrael Tamayo MD Mar 11, 2017 13:51
[2017-03-11] MEDS ORDERED: diphenhydrAMINE HCL 25 MG CAP G-TUBE PRN ×2 (14:00)
[2017-03-11] MEDS ORDERED: ACETAMINOPHEN 325 MG TAB G-TUBE PRN ×2 (14:00)
[2017-03-11] MEDS ORDERED: SENNOSIDES 8.6 MG TAB G-TUBE PRN ×2 (14:15)
[2017-03-11] MEDS: METOPROLOL TARTRATE 25 MG TAB DOBHOFF SCH ×4 (15:22→22:00)
[2017-03-11] MEDS: LACTOBACILLUS ACIDOPHILUS TAB G-TUBE SCH ×2 (18:03)
[2017-03-11] MEDS: DOCUSATE SODIUM 50 MG/SENNA 8.6 MG TAB G-TUBE SCH ×2 (21:00)
[2017-03-11] MEDS: LORazepam 2 MG/ML VIAL IV PUSH PRN ×2 (23:06)
[2017-03-12] VITALS (9 sets, daily range): BP systolic 91–108; BP diastolic 51–61; PULSE 75–99; RESP 16–24; TEMP 97.1–98.3; O2SAT 94–100
[2017-03-12] MEDS: CHLORHEXIDINE GLUCONATE 2 % 1 PACK (2 CLOTHS) TOP SCH ×2 (03:41)
[2017-03-12] MEDS: METOPROLOL TARTRATE 25 MG TAB DOBHOFF SCH ×4 (06:00→20:48)
[2017-03-12] MEDS: INSULIN ASPART SUPPLEMENTAL SCALE SQ SCH ×8 (08:30→20:49)
--- NOTE | 2017-03-12 08:42 | HHI.PR ---
Subjective Remarks in no acute distress. lethargic. on restraints. afebrile. Objective Vitals Vital Signs Date Time Temp Pulse Resp B/P (MAP) Pulse Ox O2 Delivery O2 Flow Rate FiO2 03/12/17 08:00 98.3 75 16 94/51 (65) 98 03/12/17 04:00 97.1 82 20 104/61 (75) 94 03/12/17 00:00 97.2 75 18 91/55 (67) 99 03/11/17 20:30 85 03/11/17 20:30 Nasal Cannula 3.00 21 03/11/17 20:00 97.5 85 22 90/51 (64) 92 03/11/17 19:18 99 Nasal Cannula 2.00 03/11/17 16:00 97.1 85 18 121/58 (79) 96 03/11/17 15:22 94 Nasal Cannula 3.00 03/11/17 12:00 97.5 89 18 107/59 (75) 98 03/11/17 09:00 3.00 21 I/O 03/11/17 03/11/17 03/11/17 03/12/17 03/12/17 03/12/17 07:00 15:00 23:00 07:00 15:00 23:00 Intake Total 853 ml 392 ml Output Total 25 ml 200 ml Balance 828 ml 192 ml Intake Oral 0 ml 120 ml Tube Feeding 653 ml 272 ml Other 200 ml Output Urine Total 25 ml 200 ml # Bowel Movements 1 3 Result Diagram: 03/11/17 0550 03/11/17 0550 Imaging Last Impressions Abdomen X-Ray 03/08/17 0000 Signed Impressions: Service Date/Time: Wednesday, March 08, 2017 18:51 - CONCLUSION: Interval advancement of nasogastric tube into the stomach. Richard Bess MD Chest X-Ray 03/06/17 0000 Signed Impressions: Service Date/Time: Monday, March 06, 2017 16:37 - CONCLUSION: 1. Good position of both left central lines. No evidence of pneumothorax. 2. Stable bilateral lower lung consolidation and right pleural effusion. Dontrell Oneil MD Soft Tissue Neck X-Ray 03/05/17 0000 Signed Impressions: Service Date/Time: February 15:18 - CONCLUSION: Limited exam. No acute abnormality. Dontrell Mcqueen Jr., MD Head CT 02/27/17 Signed Impressions: Service Date/Time: Monday, February 27, 2017 12:47 - CONCLUSION: 1. No acute intracranial abnormality is identified. There are no findings to indicate ischemia and no acute blood products are present. 2. Chronic brain changes include generalized atrophy and periventricular white matter change characteristic of chronic microvascular ischemia. 3. There is trace air within the cavernous sinus bilaterally and in the left superior ophthalmic vein likely related to IV access. Flakito Silva MD Carotid Artery Ultrasound 02/27/17 Signed Impressions: Service Date/Time: Monday, February 27, 2017 14:35 - CONCLUSION: 1. Severe noncalcified plaque in the left carotid bulb and left internal carotid artery with a possible complete occlusion of the left internal carotid artery. No Doppler signal is identified in the vessel which could indicate complete occlusion or severe high-grade stenosis. Consider carotid CTA for further evaluation. 2. There is mild to moderate noncalcified plaque in the right carotid bulb. Less than 50%% stenosis is present within the right internal carotid artery. 3. Please note that the right external carotid artery is not visualized. Flakito Silva MD Hepatobiliary Scan Nuclear Medicine 02/24/17 Signed Impressions: Service Date/Time: Friday, February 24, 2017 12:33 - CONCLUSION: 1. Lack of visualization of the gallbladder. We will have the patient return for delayed imaging. At this point acute cholecystitis versus chronic cholecystitis. Dontrell Mcqueen Jr., MD ADDENDUM: 24-hour delayed imaging shows activity within the gallbladder. This would be consistent with chronic cholecystitis. Dontrell Mcqueen Jr., MD Liver Ultrasound 02/20/17 Signed Impressions: Service Date/Time: Monday, February 20, 2017 10:51 - CONCLUSION: Gallstones and gallbladder wall thickening. There is no intrahepatic biliary duct dilatation. Rylan Wang MD FACR Renal Ultrasound 02/19/17 Signed Impressions: Service Date/Time: February 17:19 - CONCLUSION: No evidence of hydronephrosis. Indwelling Scott catheter with collapsed bladder in thickened bladder wall. Cal Tomlinson MD Objective Remarks GENERAL: in no acute distress HEENT; NG tube in place- pupils with minimal reaction to light bilaterally CARDIOVASCULAR: Regular rate and regular rhythm without murmurs, gallops, or rubs. RESPIRATORY: bilateral air entry present GASTROINTESTINAL: Abdomen soft, non-tender, nondistended. Normal, active bowel sounds MUSCULOSKELETAL: Extremities without clubbing, cyanosis, or edema. NEURO: mildly lethargic but easily arousable. Procedures Vascath 2, central line, PEG Medications and IVs Current Medications IV Flush (NS Flush) 2 ml UNSCH PRN IV FLUSH FLUSH AFTER USING IV ACCESS; Start 02/19/17 at 12:15; Stop 02/19/17 at 16:15; Status DC Sodium Chloride 1,000 ml @ 1,000 mls/hr Q1H IV Last administered on 12:17; Start 02/19/17 at 12:05; Stop 02/19/17 at 13:04; Status DC Sodium Chloride 1,000 ml @ 999 mls/hr BOLUS ONCE IV Last administered on 12:18; Start 02/19/17 at 12:15; Stop 02/19/17 at 13:15; Status DC Insulin Human Regular (NovoLIN R INJ) 10 units ONCE ONCE IV PUSH Last administered on 02/19/17 12:23; Start 02/19/17 at 12:15; Stop 02/19/17 at 12 :16; Status DC Sodium Chloride 1,000 ml @ 999 mls/hr BOLUS ONCE IV Last administered on 13:25; Start 02/19/17 at 13:00; Stop 02/19/17 at 14:00; Status DC Sodium Chloride 1,000 ml @ 250 mls/hr Q4H IV Last administered on 02/19/17 14:36; Start 02/19/17 at 13:35; Stop 02/19/17 at 16:40; Status DC Dextrose/Sodium Chloride 1,000 ml @ 200 mls/hr Q5H IV ; Start 02/19/17 at 13: 35; Stop 02/20/17 at 00:07; Status DC Insulin Human Regular 100 units/ Sodium Chloride 100 ml @ 6.5 mls/hr TITRATE IV Last administered on 02/20/17 00:30; Start 02/19/17 at 15:00; Stop 02/20 at 09:24; Status DC Sodium Bicarbonate (Sodium Bicarbonate 8.4% Inj) 100 meq UNSCH PRN IV PUSH SEE LABEL COMMENTS; Start 02/19/17 at 13:45 Sodium Bicarbonate (Sodium Bicarbonate 8.4% Inj) 50 meq UNSCH PRN IV PUSH SEE LABEL COMMENTS; Start 02/19/17 at 13:45 Sodium Phosphate 15 mmol/Sodium Chloride 105 ml @ 25 mls/hr UNSCH PRN IV SEE LABEL COMMENTS; Start 02/19/17 at 13:45 Miscellaneous Information 1 Q361D XX ; Start 02/19/17 at 13:45; Stop 02/19/17 at 16:14; Status DC Chlorhexidine Gluconate (Chlorhexidine 2% Cloth) 3 pack Taper DAILY@04 TOP ; Start 02/20/17 at 04:00; Stop 02/20/17 at 04:00; Status DC Chlorhexidine Gluconate (Chlorhexidine 2% Cloth) 3 pack UNSCH PRN TOP HYGIENIC CARE; Start 02/19/17 at 13:45; Stop 02/19/17 at 16:14; Status DC Piperacillin Sod/ Tazobactam Sod 100 ml @ 200 mls/hr ONCE ONCE IV Last administered on 02/19/17 14:36; Start 02/19/17 at 14:30; Stop 02/19/17 at 14 :59; Status DC Vancomycin HCl 1000 mg/Sodium Chloride 250 ml @ 250 mls/hr ONCE ONCE IV Last administered on 02/19/17 14:36; Start 02/19/17 at 14:30; Stop 02/19/17 at 15 :29; Status DC Sodium Chloride (NS Flush) 2 ml UNSCH PRN IV FLUSH FLUSH AFTER USING IV ACCESS ; Start 02/19/17 at 14:15 Sodium Chloride (NS Flush) 2 ml BID IV FLUSH Last administered on 03/11/17 23: 05; Start 02/19/17 at 21:00 Pantoprazole Sodium (Protonix Inj) 40 mg DAILY IV PUSH Last administered on 08:23; Start 02/20/17 at 09:00; Stop 03/01/17 at 11:25; Status DC Albuterol/ Ipratropium (Duoneb Neb) 1 ampule Q6HR NEB INH Last administered on 02/22/17 10:35; Start 02/19/17 at 16:00; Stop 02/22/17 at 13:56; Status DC Albuterol/ Ipratropium (Duoneb Neb) 1 ampule Q4HR NEB PRN INH WHEEZING; Start 02/19/17 at 14:15; Stop 02/22/17 at 13:57; Status DC Heparin Sodium (Porcine) (Heparin Inj) 5,000 units Q12H SQ Last administered on 03/08/17 17:39; Start 02/19/17 at 17:00; Status Future Hold Miscellaneous Information 1 Q361D XX ; Start 02/19/17 at 14:15 Chlorhexidine Gluconate (Chlorhexidine 2% Cloth) 3 pack Taper DAILY@04 TOP Last administered on 02/25/17 02:34; Start 02/20/17 at 04:00; Stop 02/16/18 at 03:59 Chlorhexidine Gluconate (Chlorhexidine 2% Cloth) 3 pack UNSCH PRN TOP HYGIENIC CARE; Start 02/19/17 at 14:15 Senna/Docusate Sodium (Princess-Colace) 1 tab BID PO Last administered on 08:54; Start 02/19/17 at 21:00; Stop 03/11/17 at 13:54; Status DC Magnesium Hydroxide (Milk Of Magnesia Liq) 30 ml Q12H PRN PO MILD - MODERATE CONSTIPATION; Start 02/19/17 at 14:15; Stop 03/05/17 at 12:16; Status DC Sennosides (Senokot) 17.2 mg Q12H PRN PO MODERATE - SEVERE CONSTIPATION; Start 02/19/17 at 14:15; Stop 03/11/17 at 13:54; Status DC Bisacodyl (Dulcolax Supp) 10 mg DAILY PRN RECTAL SEVERE CONSITIPATION; Start 02/19/17 at 14:15 Lactulose (Lactulose Liq) 30 ml DAILY PRN PO SEVERE CONSITIPATION; Start 02/19 at 14:15 Aspirin (Aspirin Chew) 81 mg DAILY CHEW Last administered on 02/21/17 07:46; Start 02/19/17 at 15:15; Stop 03/01/17 at 11:25; Status DC Piperacillin Sod/ Tazobactam Sod 50 ml @ 100 mls/hr Q6H IV Last administered on 02/22/17 21:10; Start 02/19/17 at 21:00; Stop 02/23/17 at 01:15; Status DC Sodium Chloride 1,000 ml @ 999 mls/hr BOLUS ONCE IV Last administered on 16:53; Start 02/19/17 at 16:15; Stop 02/19/17 at 17:15; Status DC Metoprolol Tartrate (Lopressor) 25 mg Q8HR PO Last administered on 03/10/17 21:49; Start 02/19/17 at 16:30; Stop 03/11/17 at 13:54; Status DC Sodium Chloride 1,000 ml @ 100 mls/hr Q10H IV Last administered on 02/19/17 17:22; Start 02/19/17 at 16:45; Stop 02/20/17 at 00:07; Status DC Sodium Bicarbonate (Sodium Bicarbonate 8.4% Inj) 50 meq ONCE ONCE IV PUSH Last administered on 02/19/17 16:50; Start 02/19/17 at 17:00; Stop 02/19/17 at 17:01; Status DC Sodium Chloride 1,000 ml @ 999 mls/hr BOLUS ONCE IV ; Start 02/19/17 at 17:00 ; Stop 02/19/17 at 18:00; Status DC Melatonin (Melatonin) 5 mg HS PRN PO SLEEP Last administered on 03/01/17 22: 58; Start 02/19/17 at 22:15 Potassium Chloride 100 ml @ 25 mls/hr BOLUS ONCE IV Last administered on 00:18; Start 02/20/17 at 00:15; Stop 02/20/17 at 04:14; Status DC Dextrose 1,000 ml @ 120 mls/hr Q8H20M IV Last administered on 02/20/17 08:59 ; Start 02/20/17 at 00:15; Stop 02/20/17 at 09:24; Status DC Miscellaneous Information 1 ONCE ONCE .XX ; Start 02/20/17 at 09:30; Stop at 10:06; Status DC Miscellaneous Information 1 ONCE ONCE .XX ; Start 02/20/17 at 09:30; Stop at 10:01; Status DC Insulin Detemir (Levemir Inj) 5 units Q12H SQ Last administered on 02/22/17 08:22; Start 02/20/17 at 09:30; Stop 02/27/17 at 08:32; Status DC Insulin Aspart (NovoLOG INJ) 3 units TIDAC SQ Last administered on 02/22/17 08:00; Start 02/20/17 at 12:00; Stop 03/01/17 at 11:25; Status DC Insulin Aspart (NovoLOG SUPPLEMENTAL SCALE) 1 ACHS SLIDING SCALE SQ Last administered on 02/20/17 21:31; Start 02/20/17 at 12:00; Stop 02/24/17 at 09 :01; Status DC Dextrose (D50w (Vial) Inj) 50 ml UNSCH PRN IV PUSH HYPOGLYCEMIA-SEE COMMENTS Last administered on 02/22/17 12:32; Start 02/20/17 at 09:30; Stop 02/27/17 at 08:38; Status DC Glucagon (Glucagon Inj) 1 mg UNSCH PRN OTHER HYPOGLYCEMIA-SEE COMMENTS; Start 02/20/17 at 09:30; Stop 02/27/17 at 08:38; Status DC Sodium Chloride 1,000 ml @ 60 mls/hr [id number] IV Last administered on 12:14; Start 02/20/17 at 09:30; Stop 02/22/17 at 13:47; Status DC Haloperidol Lactate (Haldol Inj) 2 mg Q4H PRN IV agitation; Start 02/20/17 at 09:45; Stop 03/01/17 at 11:39; Status DC Lorazepam (Ativan Inj) 1 mg Q6H PRN IV PUSH ANXIETY AND/OR AGITATION Last administered on 03/11/17 23:06; Start 02/21/17 at 08:00 Sodium Chloride 1,000 ml @ 0 mls/hr Q0M PRN OTHER For Prime & Rinse Back; Start 02/21/17 at 10:55 Heparin Sodium (Porcine) (Heparin Inj) 8,000 units UNSCH PRN IV FLUSH WITH DIALYSIS; Start 02/21/17 at 11:00 Sodium Chloride 1,000 ml @ 200 mls/hr Q5H PRN IV WITH DIALYSIS Last administered on 02/21/17 14:48; Start 02/21/17 at 10:55 Sodium Chloride 1,000 ml @ 0 mls/hr Q0M PRN OTHER WITH DIALYSIS; Start at 10:55 Mannitol (Mannitol Inj) 12.5 gm UNSCH PRN IV WITH DIALYSIS Last administered on 02/21/17 14:48; Start 02/21/17 at 11:00 Albumin Human 100 ml @ 60 mls/hr UNSCH PRN IV WITH DIALYSIS Last administered on 03/10/17 10:18; Start 02/21/17 at 11:00 Sodium Chloride (NS Flush) 5 ml UNSCH PRN IV FLUSH WITH DIALYSIS; Start at 11:00 Heparin Sodium (Porcine) (Heparin Inj) UNSCH PRN .XX WITH DIALYSIS Last administered on 03/10/17 10:18; Start 02/21/17 at 11:00 Gentamicin Sulfate (Gentamicin (Dialysis) Inj) 20 mg UNSCH PRN OTHER WITH DIALYSIS Last administered on 03/10/17 10:18; Start 02/21/17 at 11:00 Ondansetron HCl (Zofran Inj) 4 mg UNSCH PRN IV PUSH WITH DIALYSIS; Start 02/21 at 11:00 Acetaminophen (Tylenol) 650 mg UNSCH PRN PO for headach, pain, temp > 101F Last administered on 03/09/17 19:38; Start 02/21/17 at 11:00; Stop 03/11/17 at 13:54; Status DC Diphenhydramine HCl (Benadryl) 25 mg UNSCH PRN PO for hives/itching/ anaphylaxis Last administered on 03/05/17 21:35; Start 02/21/17 at 11:00; Stop 03/11/17 at 13:54; Status DC Nitroglycerin (Nitrostat Sl) 0.4 mg UNSCH PRN SL CHEST PAIN; Start 02/21/17 at 11:00 Clonidine (Catapres) 0.1 mg UNSCH PRN PO for BP > 180/100 X 2 readings; Start 02/21/17 at 11:00 Gelatin (Gelfoam 12 Mm/7 Mm Top) 1 foam UNSCH PRN TOP SEE LABEL COMMENTS; Start 02/21/17 at 11:00 Midazolam HCl (Versed Inj) 5 mg STK-MED ONCE .ROUTE ; Start 02/21/17 at 12:47; Stop 02/21/17 at 12:48; Status DC Flumazenil (Romazicon Inj) 0.5 mg STK-MED ONCE .ROUTE ; Start 02/21/17 at 13:42 ; Stop 02/21/17 at 13:43; Status DC Flumazenil (Romazicon Inj) 0.5 mg STK-MED ONCE .ROUTE ; Start 02/21/17 at 13:42 ; Stop 02/21/17 at 13:43; Status DC Flumazenil (Romazicon Inj) 0.5 mg STAT ONCE IV ; Start 02/21/17 at 14:00; Stop 02/21/17 at 14:01; Status DC Albuterol/ Ipratropium (Duoneb Neb) 1 ampule Q4HR NEB INH Last administered on 02/26/17 15:35; Start 02/22/17 at 16:00; Stop 02/26/17 at 15:59; Status DC Albuterol/ Ipratropium (Duoneb Neb) 1 ampule Q2HR NEB PRN INH WHEEZING Last administered on 03/11/17 17:13; Start 02/22/17 at 14:00 Dextrose 1,000 ml @ 42 mls/hr [id number] IV Last administered on 02/22/17 18:45 ; Start 02/22/17 at 18:45; Stop 02/23/17 at 11:20; Status DC Vancomycin HCl 1000 mg/Sodium Chloride 250 ml @ 250 mls/hr ONCE ONCE IV Last administered on 02/23/17 01:38; Start 02/23/17 at 01:30; Stop 02/23/17 at 02 :29; Status DC Metronidazole 100 ml @ 100 mls/hr Q8H IV Last administered on 02/27/17 05:44 ; Start 02/23/17 at 12:00; Stop 02/27/17 at 09:08; Status DC Levofloxacin/ Dextrose 50 ml @ 50 mls/hr Q24H IV Last administered on 12:05; Start 02/23/17 at 11:00; Stop 02/27/17 at 09:08; Status DC Sodium Chloride 154 meq/Dextrose 1,038.5 ml @ 20 mls/hr Q24H IV Last administered on 02/23/17 13:28; Start 02/23/17 at 12:00; Stop 02/24/17 at 00 :50; Status DC Dextrose 1,000 ml @ 42 mls/hr [id number] IV Last administered on 02/24/17 01:46 ; Start 02/24/17 at 01:00; Stop 02/24/17 at 04:39; Status DC Insulin Human Regular (NovoLIN R INJ) 10 units NOW ONCE IV PUSH Last administered on 02/24/17 05:01; Start 02/24/17 at 04:45; Stop 02/24/17 at 04 :47; Status DC Insulin Human Regular (NovoLIN R INJ) 10 units ONCE ONCE IV PUSH Last administered on 02/24/17 06:30; Start 02/24/17 at 06:15; Stop 02/24/17 at 06 :16; Status DC Dextrose (D50w (Vial) Inj) 50 ml UNSCH PRN IV PUSH HYPOGLYCEMIA-SEE COMMENTS Last administered on 03/06/17 04:39; Start 02/24/17 at 08:30 Glucagon (Glucagon Inj) 1 mg UNSCH PRN OTHER HYPOGLYCEMIA-SEE COMMENTS; Start 02/24/17 at 08:30 Insulin Aspart (NovoLOG SUPPLEMENTAL SCALE) 1 ACHS SLIDING SCALE SQ Last administered on 02/26/17 22:44; Start 02/24/17 at 12:00; Stop 02/27/17 at 08 :36; Status DC Insulin Detemir (Levemir Inj) 5 units Q12HR SQ Last administered on 02/26/17 22:44; Start 02/25/17 at 09:00; Stop 02/27/17 at 08:32; Status DC Lactobacillus Acidophilus (Lactinex) 1 tab TID PO Last administered on 08:54; Start 02/25/17 at 13:00; Stop 03/11/17 at 13:54; Status DC Potassium Chloride (KCl Powder) 20 meq ONCE ONCE PO Last administered on 02/26 14:15; Start 02/26/17 at 14:15; Stop 02/26/17 at 14:16; Status DC Insulin Detemir (Levemir Inj) 12 units DAILYAC SQ ; Start 02/27/17 at 08:30; Stop 02/27/17 at 08:40; Status DC Insulin Detemir (Levemir Inj) 10 units HS SQ ; Start 02/27/17 at 21:00; Stop 02/27/17 at 21:00; Status DC Insulin Aspart (NovoLOG SUPPLEMENTAL SCALE) 1 ACHS SLIDING SCALE SQ Last administered on 03/11/17 23:05; Start 02/27/17 at 12:00 Insulin Detemir (Levemir Inj) 8 units DAILYAC SQ Last administered on 09:10; Start 02/28/17 at 08:00; Stop 03/05/17 at 18:33; Status DC Insulin Detemir (Levemir Inj) 8 units HS SQ Last administered on 03/03/17 20: 47; Start 02/27/17 at 21:00; Stop 03/05/17 at 12:16; Status DC Levofloxacin (Levaquin) 250 mg DAILY PO Last administered on 03/02/17 09:21; Start 02/27/17 at 11:00; Stop 03/03/17 at 10:03; Status DC Metronidazole (Flagyl) 500 mg Q8HR PO Last administered on 03/05/17 05:17; Start 02/27/17 at 14:00; Stop 03/05/17 at 12:00; Status DC Sodium Chloride 1,000 ml @ 60 mls/hr [id number] IV Last administered on 03:00; Start 02/27/17 at 13:00; Stop 02/28/17 at 14:52; Status DC Norepinephrine Bitartrate 4 mg/ Sodium Chloride 250 ml @ 7.5 mls/hr TITRATE PRN IV Blood pressure management Last administered on 02/28/17 00:18; Start 02/27/17 at 13:30; Stop 03/01/17 at 14:26; Status DC Terbutaline Sulfate (Brethine Inj) 1 mg UNSCH PRN SQ For Extravasation; Start 02/27/17 at 13:30 Sodium Chloride 250 ml @ 250 mls/hr BOLUS ONCE IV Last administered on 13:20; Start 02/27/17 at 13:30; Stop 02/27/17 at 14:29; Status DC Potassium Phosphate (K-Phos) 500 mg ONCE ONCE PO ; Start 02/27/17 at 13:30; Stop 02/27/17 at 13:33; Status DC Aspirin (Aspirin Supp) 300 mg STAT ONCE RECTAL Last administered on 16:15; Start 02/27/17 at 16:00; Stop 02/27/17 at 16:03; Status DC Aspirin (Ecotrin Ec) 81 mg DAILY PO Last administered on 03/11/17 08:54; Start 02/28/17 at 09:00; Stop 03/11/17 at 13:54; Status DC Influenza Virus Vaccine (Flu (Quadrivalent) Vaccine Inj) 0.5 ml ONCE ONCE IM Last administered on 03/03/17 09:55; Start 03/03/17 at 10:00; Stop 03/03/17 at 10:01; Status DC Sodium Chloride 1,000 ml @ 30 mls/hr Q24H PRN IV if po < 50% for one liter Last administered on 03/05/17 14:38; Start 03/02/17 at 13:15; Stop 03/05/17 at 18:27; Status DC Levofloxacin (Levaquin) 250 mg Q48H PO Last administered on 03/05/17 11:50; Start 03/03/17 at 11:00; Stop 03/05/17 at 23:55; Status DC Albuterol/ Ipratropium (Duoneb Neb) 1 ampule TID NEB NEB Last administered on 03/09/17 08:39; Start 03/05/17 at 14:00; Stop 03/09/17 at 10:58; Status DC Dextrose/Sodium Chloride 1,000 ml @ 30 mls/hr Q24H IV Last administered on 19:00; Start 03/05/17 at 18:45; Stop 03/06/17 at 05:19; Status DC Insulin Detemir (Levemir Inj) 4 units DAILYAC SQ Last administered on 08:55; Start 03/06/17 at 08:00; Stop 03/11/17 at 09:46; Status DC Sodium Polystyrene Sulfonate (Kayexalate Enema) 30 gm ONCE ONCE RECTAL Last administered on 03/05/17 01:00; Start 03/05/17 at 22:45; Stop 03/05/17 at 22 :46; Status DC Furosemide (Lasix Inj) 20 mg UNSCH X1 IV ; Start 03/06/17 at 06:30; Stop at 08:00; Status DC Midazolam HCl (Versed Inj) 5 mg STK-MED ONCE .ROUTE ; Start 03/06/17 at 14:45; Stop 03/06/17 at 14:46; Status DC Midazolam HCl (Versed Inj) 2 mg NOW ONCE IV Last administered on 03/06/17 15 :00; Start 03/06/17 at 15:45; Stop 03/06/17 at 15:46; Status DC Midazolam HCl (Versed Inj) 3 mg ONCE ONCE IV ; Start 03/06/17 at 15:45; Stop 03/06/17 at 15:46; Status DC Albuterol/ Ipratropium (Duoneb Neb) 1 ampule TID NEB NEB Last administered on 03/11/17 19:14; Start 03/09/17 at 14:00 Miscellaneous Information ALL NURSING DEPARTME... UNSCH PRN .XX SEE LABEL COMMENTS; Start 03/09/17 at 16:14; Stop 03/10/17 at 16:13; Status DC Epoetin Samuel (Epogen Inj) 10,000 units UNSCH PRN IV PUSH WITH DIALYSIS Last administered on 03/10/17 12:34; Start 03/10/17 at 11:30 Insulin Detemir (Levemir Inj) 8 units DAILYAC SQ ; Start 03/12/17 at 08:00 Insulin Detemir (Levemir Inj) 8 units HS SQ Last administered on 03/11/17 23: 06; Start 03/11/17 at 21:00 Insulin Detemir (Levemir Inj) 4 units ONCE ONCE SQ Last administered on 12:23; Start 03/11/17 at 11:30; Stop 03/11/17 at 11:31; Status DC Acetaminophen (Tylenol) 650 mg UNSCH PRN G-TUBE for headach, pain, temp > 101F ; Start 03/11/17 at 14:00 Aspirin (Ecotrin Ec) 81 mg DAILY .XX ; Start 03/12/17 at 09:00 Diphenhydramine HCl (Benadryl) 25 mg UNSCH PRN G-TUBE for hives/itching/ anaphylaxis; Start 03/11/17 at 14:00 Senna/Docusate Sodium (Princess-Colace) 1 tab BID G-TUBE Last administered on 21:00; Start 03/11/17 at 21:00 Lactobacillus Acidophilus (Lactinex) 1 tab TID G-TUBE Last administered on 03/11 18:03; Start 03/11/17 at 18:00 Metoprolol Tartrate (Lopressor) 25 mg Q8HR DOBHOFF Last administered on 15:22; Start 03/11/17 at 14:00 Sennosides (Senokot) 17.2 mg Q12H PRN G-TUBE MODERATE - SEVERE CONSTIPATION; Start 03/11/17 at 14:15 A/P Problem List: (1) Acute metabolic encephalopathy ICD Code: G93.41 - Metabolic encephalopathy (2) Altered mental status ICD Code: R41.82 - Altered mental status, unspecified Status: Acute (3) DKA (diabetic ketoacidoses) ICD Code: E13.10 - Other specified diabetes mellitus with ketoacidosis without coma Status: Resolved (4) Non-STEMI (non-ST elevated myocardial infarction) ICD Code: I21.4 - Non-ST elevation (NSTEMI) myocardial infarction Status: Acute (5) Dehydration with hypernatremia ICD Code: E87.0 - Hyperosmolality and hypernatremia Status: Resolved (6) Sepsis ICD Code: A41.9 - Sepsis, unspecified organism Status: Acute (7) UTI (urinary tract infection) ICD Code: N39.0 - Urinary tract infection, site not specified Status: Acute (8) Acute renal failure ICD Code: N17.9 - Acute kidney failure, unspecified Status: Acute (9) Hyperglycemia ICD Code: R73.9 - Hyperglycemia, unspecified Status: Acute (10) Lactic acidemia ICD Code: E87.2 - Acidosis (11) Transaminitis ICD Code: R74.0 - Nonspecific elevation of levels of transaminase and lactic acid dehydrogenase [LDH] (12) Respiratory insufficiency ICD Code: R06.89 - Other abnormalities of breathing Assessment and Plan A/P Acute encephalopathy, recurrent and multifactorial. Not improving -repeated CT with no acute abnormality. -Treat agitation with when necessary Haldol -rpt EEG without seizure. Carotid sonogram showed left carotid occlusion and 50 % stenosis on the right carotid. Patient on aspirin. Patient on statin currently on hold because of transaminitis. Holter monitor results as follows normal Sinus rhythm with an average heart rate of 86 beats per minute. There were periods of sinus tachycardia up to 124 beats per minute at 9:10pm. There were 3,693 PVCs, 51 cycles of ventricular bigeminy, 419 ventricular couplets and 14 runs of wide complex tachycardia, the longest being 3 beats with a maximum heart rate of 145 beats per minute. The 3 beat runs of wide complex tachycardia are polymorphic. There are no PACs. -Normal ammonia. -Repeat ABG. Sleep study outpatient -Status post neurology evaluation believes this is metabolic. 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 Stable - keep on oxygen as needed to keep O2 sat >90% - continue neb treatment. - Lasix if tolerated elevated troponin Hypertension cardiomyopathy - echo with EF 25% - Aspirin - Metoprolol 25 mg every 8 hours. Unable to start MILDRED inhibitor secondary to acute kidney injury - Avoid statins due to transaminitis - evaluated by cardiology. Transaminitis chronic cholecystitis - Monitor liver enzymes Acute kidney injury superimposed on chronic kidney disease . Oliguric to anuric Severe dehydration - Baseline creatinine 1.8 to 2. Acute worsening secondary to severe dehydration , ATN and DKA - Monitor renal function closely. - Creatinine is rising with episodes of confusion likely secondary to uremia. Nephrology to manage hemodialysis Probable sepsis UTI -- one bottle of the blood cultures with staph coag. negative-likely contamination. -ID consult appreciated status post Levaquin and Flagyl diarrhea- stool negative for c-diff. Anemia thrombocytopenia from Sepsis/DIC -Resolved thrombocytopenia -hematology following. -Monitor CBC. DKA-resolved now hyperglycemic secondary to tube feeding -continue sliding scale coverage. -continue levemir ; 8 units twice a day, A1c 10. -Hypoglycemia protocol FEN. Tube feeding via PEG PROPH: - Bilateral lower extremity SCDs. Discharge Planning not ready for discharge yet. Problem Qualifiers (1) Altered mental status: Qualified Codes: R41.82 - Altered mental status, unspecified (2) DKA (diabetic ketoacidoses): (3) Sepsis: Qualified Codes: A41.9 - Sepsis, unspecified organism (4) UTI (urinary tract infection): (5) Acute renal failure: Qualified Codes: N17.9 - Acute kidney failure, unspecified [place] Braden MD Mar 12, 2017 08:42
[2017-03-12] MEDS: RESP: ALBUTEROL 2.5 MG/IPRATROPIUM 0.5 MG NEB (SCH) NEB ×6 (08:58→21:34)
[2017-03-12] MEDS: DOCUSATE SODIUM 50 MG/SENNA 8.6 MG TAB G-TUBE SCH ×4 (09:00→20:49)
[2017-03-12] MEDS: INSULIN DETEMIR 100 UNITS/ML VIAL SQ SCH ×4 (09:08→20:50)
[2017-03-12] MEDS: SODIUM CHLORIDE 0.9% FLUSH 10 ML FLUSH IV FLUSH SCH ×4 (09:09→20:50)
[2017-03-12] MEDS: LACTOBACILLUS ACIDOPHILUS TAB G-TUBE SCH ×6 (09:09→18:00)
[2017-03-12] MEDS: ASPIRIN EC 81 MG TABEC SCH ×2 (09:09)
--- NOTE | 2017-03-12 09:35 | HHI.NPPN ---
Subjective Renal Failure: Chronic, Acute Interval History Mental status the same. He appears to have thrush. Family at bedside. Remains in upper body soft wrist restraints. (Gely Dill) Review of Systems General General Remarks unable to evaluate (Gely Dill) Objective Data Data Vital Signs Date Time Temp Pulse Resp B/P (MAP) Pulse Ox O2 Delivery O2 Flow Rate FiO2 03/12/17 08:59 99 Nasal Cannula 2.50 03/12/17 08:00 98.3 75 16 94/51 (65) 98 03/12/17 04:00 97.1 82 20 104/61 (75) 94 03/12/17 00:00 97.2 75 18 91/55 (67) 99 03/11/17 20:30 85 03/11/17 20:30 Nasal Cannula 3.00 21 03/11/17 20:00 97.5 85 22 90/51 (64) 92 03/11/17 19:18 99 Nasal Cannula 2.00 03/11/17 16:00 97.1 85 18 121/58 (79) 96 03/11/17 15:22 94 Nasal Cannula 3.00 03/11/17 12:00 97.5 89 18 107/59 (75) 98 (Gely Dill) -: 03/11/17 0550 03/11/17 0550 Tubes & Lines: Vas-Cath Tubes & Lines Comment TLC and vascath left IJ Drip Comment None (Gely Dill) Physical Exam General Appearance: Malnourished Appearance Remarks Disheveled, obtunded, restless (Gely Dill) Eyes Eye Exam: Pupils Equal, Pupils Reactive (Gely Dill) Throat Throat Exam: Oral Mucosa [place] & Moist (Gely Dill) Neck Neck Exam: Neck Supple (Gely Dill) Pulmonary Resp Exam: Breath Sounds Equal, No Distress, Rhonchi, Decreased Bases Resp Remarks irregular in depth and rate (Gely Dill) Cardiology CV Exam: Regular, Normal Sinus Rhythm, Good Perfusion (Gely Dill) Gastrointestinal/Abdomen GI Exam: Soft, Non-Tender, Bowel Sounds Present (Gely Dill B. BLIND AIDE) Genitourinary Exam: Bladder Non-Palpable (Fredy Dillon B. BLIND AIDE) Musculoskeletal MS Exam: Joints Intact, Atrophy, Unable to Ambulate (Fredy Dillon B. BLIND AIDE) Integumentary Skin Exam: Clear, Warm, Dry, Intact (AniyahGely B. BLIND AIDE) Extremeties Extremities Exam: No Edema, Pedal Pulses Palpable (Fredy Dillon B. BLIND AIDE) Neurologic Neuro Exam: Awake, Moving All Extremities, Obtunded (AniyahGely B. BLIND AIDE) VTE Prophylaxis Device: SCDs (AniyahGely B. BLIND AIDE) Assessment/Plan Discussed Condition With: Daughter, Relative Assessment Summary: HERVE/Acute Renal Failure, Acute Tubular Necrosis, Diabetes Mellitus Problem List: (1) Acute renal failure ICD Codes: N17.9 - Acute kidney failure, unspecified Status: Acute Plan: This patient has underlying renal impairment, creatinine 1.8-2 at baseline He has 1.2 g proteinuria, which 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 In addition his mental status is not at the level required for outpatient HD. Will monitor for changes. (2) encephalopathy Plan: etiology uncertain, likely metabolic monitor mental status work up has been negative (3) DKA (diabetic ketoacidoses) ICD Codes: E13.10 - Other specified diabetes mellitus with ketoacidosis without coma Status: Resolved Plan: DKA resolved; A1c is 10 Diabetic control has been better, continue to adjust insulin with primary team. (4) Elevated troponin ICD Codes: R74.8 - Abnormal levels of other serum enzymes Plan: cardiology has evaluated suspect demand ischemia as etiology of elevated troponin levels 2D echo shows EF 25% (5) Sepsis ICD Codes: A41.9 - Sepsis, unspecified organism Status: Acute Plan: Resolving He is off antibiotics 1/2 blood cultures with staph hominis, likely contaminant HIDA scan taken, unable to visualize GB, results showing chronic cholecystitis (6) Dehydration with hypernatremia ICD Codes: E87.0 - Hyperosmolality and hypernatremia Status: Resolved Plan: Corrected, monitor for recurrence (Gely Dill) Plan patient was seen and examined. Remains confused and disoriented. Also, at risk for aspiration and development of pneumonia. Urine amount recorded is quite low : he is oliguric. It is unclear if he has reached ESRD. Not stable for outpatient dialysis given his mental status. Dialysis today. (Mc Quintanilla MD) Problem Qualifiers (1) Acute renal failure: Qualified Codes: N17.9 - Acute kidney failure, unspecified (2) DKA (diabetic ketoacidoses): (3) Sepsis: Qualified Codes: A41.9 - Sepsis, unspecified organism Gely Dill Mar 12, 2017 09:35 Mc Quintanilla MD Mar 12, 2017 19:44
--- NOTE | 2017-03-12 09:35 | HHI.NPPN ---
Subjective Renal Failure: Chronic, Acute Interval History Mental status the same. He appears to have thrush. Family at bedside. Remains in upper body soft wrist restraints. (Gely Dill) Review of Systems General General Remarks unable to evaluate (Gely Dill) Objective Data Data Vital Signs Date Time Temp Pulse Resp B/P (MAP) Pulse Ox O2 Delivery O2 Flow Rate FiO2 03/12/17 08:59 99 Nasal Cannula 2.50 03/12/17 08:00 98.3 75 16 94/51 (65) 98 03/12/17 04:00 97.1 82 20 104/61 (75) 94 03/12/17 00:00 97.2 75 18 91/55 (67) 99 03/11/17 20:30 85 03/11/17 20:30 Nasal Cannula 3.00 21 03/11/17 20:00 97.5 85 22 90/51 (64) 92 03/11/17 19:18 99 Nasal Cannula 2.00 03/11/17 16:00 97.1 85 18 121/58 (79) 96 03/11/17 15:22 94 Nasal Cannula 3.00 03/11/17 12:00 97.5 89 18 107/59 (75) 98 (Gely Dill) -: 03/11/17 0550 03/11/17 0550 Tubes & Lines: Vas-Cath Tubes & Lines Comment TLC and vascath left IJ Drip Comment None (Gely Dill) Physical Exam General Appearance: Malnourished Appearance Remarks Disheveled, obtunded, restless (Gely Dill) Eyes Eye Exam: Pupils Equal, Pupils Reactive (Gely Dill) Throat Throat Exam: Oral Mucosa [place] & Moist (Gely Dill) Neck Neck Exam: Neck Supple (Gely Dill) Pulmonary Resp Exam: Breath Sounds Equal, No Distress, Rhonchi, Decreased Bases Resp Remarks irregular in depth and rate (Gely Dill) Cardiology CV Exam: Regular, Normal Sinus Rhythm, Good Perfusion (Gely Dill) Gastrointestinal/Abdomen GI Exam: Soft, Non-Tender, Bowel Sounds Present (Gely Dill B. SOCCER BALL ASSEMBLER) Genitourinary Exam: Bladder Non-Palpable (Fredy Dillon B. SOCCER BALL ASSEMBLER) Musculoskeletal MS Exam: Joints Intact, Atrophy, Unable to Ambulate (Fredy Dillon B. SOCCER BALL ASSEMBLER) Integumentary Skin Exam: Clear, Warm, Dry, Intact (AniyahGely B. SOCCER BALL ASSEMBLER) Extremeties Extremities Exam: No Edema, Pedal Pulses Palpable (Fredy Dillon B. SOCCER BALL ASSEMBLER) Neurologic Neuro Exam: Awake, Moving All Extremities, Obtunded (AniyahGely B. SOCCER BALL ASSEMBLER) VTE Prophylaxis Device: SCDs (AniyahGely B. SOCCER BALL ASSEMBLER) Assessment/Plan Discussed Condition With: Daughter, Relative Assessment Summary: HERVE/Acute Renal Failure, Acute Tubular Necrosis, Diabetes Mellitus Problem List: (1) Acute renal failure ICD Codes: N17.9 - Acute kidney failure, unspecified Status: Acute Plan: This patient has underlying renal impairment, creatinine 1.8-2 at baseline He has 1.2 g proteinuria, which 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 In addition his mental status is not at the level required for outpatient HD. Will monitor for changes. (2) encephalopathy Plan: etiology uncertain, likely metabolic monitor mental status work up has been negative (3) DKA (diabetic ketoacidoses) ICD Codes: E13.10 - Other specified diabetes mellitus with ketoacidosis without coma Status: Resolved Plan: DKA resolved; A1c is 10 Diabetic control has been better, continue to adjust insulin with primary team. (4) Elevated troponin ICD Codes: R74.8 - Abnormal levels of other serum enzymes Plan: cardiology has evaluated suspect demand ischemia as etiology of elevated troponin levels 2D echo shows EF 25% (5) Sepsis ICD Codes: A41.9 - Sepsis, unspecified organism Status: Acute Plan: Resolving He is off antibiotics 1/2 blood cultures with staph hominis, likely contaminant HIDA scan taken, unable to visualize GB, results showing chronic cholecystitis (6) Dehydration with hypernatremia ICD Codes: E87.0 - Hyperosmolality and hypernatremia Status: Resolved Plan: Corrected, monitor for recurrence (Gely Dill) Plan patient was seen and examined. Remains confused and disoriented. Also, at risk for aspiration and development of pneumonia. Urine amount recorded is quite low : he is oliguric. It is unclear if he has reached ESRD. Not stable for outpatient dialysis given his mental status. Dialysis today. (Mc Quintanilla MD) Problem Qualifiers (1) Acute renal failure: Qualified Codes: N17.9 - Acute kidney failure, unspecified (2) DKA (diabetic ketoacidoses): (3) Sepsis: Qualified Codes: A41.9 - Sepsis, unspecified organism Gely Dill Mar 12, 2017 09:35 Mc Quintanilla MD Mar 12, 2017 19:44
--- NOTE | 2017-03-12 09:35 | HHI.NPPN ---
Subjective Renal Failure: Chronic, Acute Interval History Mental status the same. He appears to have thrush. Family at bedside. Remains in upper body soft wrist restraints. (Gely Dill) Review of Systems General General Remarks unable to evaluate (Gely Dill) Objective Data Data Vital Signs Date Time Temp Pulse Resp B/P (MAP) Pulse Ox O2 Delivery O2 Flow Rate FiO2 03/12/17 08:59 99 Nasal Cannula 2.50 03/12/17 08:00 98.3 75 16 94/51 (65) 98 03/12/17 04:00 97.1 82 20 104/61 (75) 94 03/12/17 00:00 97.2 75 18 91/55 (67) 99 03/11/17 20:30 85 03/11/17 20:30 Nasal Cannula 3.00 21 03/11/17 20:00 97.5 85 22 90/51 (64) 92 03/11/17 19:18 99 Nasal Cannula 2.00 03/11/17 16:00 97.1 85 18 121/58 (79) 96 03/11/17 15:22 94 Nasal Cannula 3.00 03/11/17 12:00 97.5 89 18 107/59 (75) 98 (Gely Dill) -: 03/11/17 0550 03/11/17 0550 Tubes & Lines: Vas-Cath Tubes & Lines Comment TLC and vascath left IJ Drip Comment None (Gely Dill) Physical Exam General Appearance: Malnourished Appearance Remarks Disheveled, obtunded, restless (Gely Dill) Eyes Eye Exam: Pupils Equal, Pupils Reactive (Gely Dill) Throat Throat Exam: Oral Mucosa [place] & Moist (Gely Dill) Neck Neck Exam: Neck Supple (Gely Dill) Pulmonary Resp Exam: Breath Sounds Equal, No Distress, Rhonchi, Decreased Bases Resp Remarks irregular in depth and rate (Gely Dill) Cardiology CV Exam: Regular, Normal Sinus Rhythm, Good Perfusion (Gely Dill) Gastrointestinal/Abdomen GI Exam: Soft, Non-Tender, Bowel Sounds Present (Gely Dill B. CARDIO CLINICIAN) Genitourinary Exam: Bladder Non-Palpable (Fredy Dillon B. CARDIO CLINICIAN) Musculoskeletal MS Exam: Joints Intact, Atrophy, Unable to Ambulate (Fredy Dillon B. CARDIO CLINICIAN) Integumentary Skin Exam: Clear, Warm, Dry, Intact (AniyahGely B. CARDIO CLINICIAN) Extremeties Extremities Exam: No Edema, Pedal Pulses Palpable (Fredy Dillon B. CARDIO CLINICIAN) Neurologic Neuro Exam: Awake, Moving All Extremities, Obtunded (AniyahGely B. CARDIO CLINICIAN) VTE Prophylaxis Device: SCDs (AniyahGely B. CARDIO CLINICIAN) Assessment/Plan Discussed Condition With: Daughter, Relative Assessment Summary: HERVE/Acute Renal Failure, Acute Tubular Necrosis, Diabetes Mellitus Problem List: (1) Acute renal failure ICD Codes: N17.9 - Acute kidney failure, unspecified Status: Acute Plan: This patient has underlying renal impairment, creatinine 1.8-2 at baseline He has 1.2 g proteinuria, which 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 In addition his mental status is not at the level required for outpatient HD. Will monitor for changes. (2) encephalopathy Plan: etiology uncertain, likely metabolic monitor mental status work up has been negative (3) DKA (diabetic ketoacidoses) ICD Codes: E13.10 - Other specified diabetes mellitus with ketoacidosis without coma Status: Resolved Plan: DKA resolved; A1c is 10 Diabetic control has been better, continue to adjust insulin with primary team. (4) Elevated troponin ICD Codes: R74.8 - Abnormal levels of other serum enzymes Plan: cardiology has evaluated suspect demand ischemia as etiology of elevated troponin levels 2D echo shows EF 25% (5) Sepsis ICD Codes: A41.9 - Sepsis, unspecified organism Status: Acute Plan: Resolving He is off antibiotics 1/2 blood cultures with staph hominis, likely contaminant HIDA scan taken, unable to visualize GB, results showing chronic cholecystitis (6) Dehydration with hypernatremia ICD Codes: E87.0 - Hyperosmolality and hypernatremia Status: Resolved Plan: Corrected, monitor for recurrence (Gely Dill) Plan patient was seen and examined. Remains confused and disoriented. Also, at risk for aspiration and development of pneumonia. Urine amount recorded is quite low : he is oliguric. It is unclear if he has reached ESRD. Not stable for outpatient dialysis given his mental status. Dialysis today. (Mc Quintanilla MD) Problem Qualifiers (1) Acute renal failure: Qualified Codes: N17.9 - Acute kidney failure, unspecified (2) DKA (diabetic ketoacidoses): (3) Sepsis: Qualified Codes: A41.9 - Sepsis, unspecified organism Gely Dill Mar 12, 2017 09:35 Mc Quintanilla MD Mar 12, 2017 19:44
[2017-03-12] MEDS: RESP: ALBUTEROL 2.5 MG/IPRATROPIUM 0.5 MG NEB (PRN) INH ×2 (11:15)
[2017-03-12 11:51] LABS: ALBUMIN 2.8 GM/DL (3.4-5.0); BICARBONATE 28.7 MEQ/L (21.0-32.0); CALCIUM 8.5 MG/DL (8.5-10.1); CREATININE 5.39 MG/DL (0.60-1.30)
[2017-03-12] MEDS: GENTAMICIN SULFATE (DIALYSIS USE ONLY) 20 MG/2 ML VIAL OTHER PRN ×2 (18:24)
[2017-03-12] MEDS: EPOETIN ALFA 10,000 UNITS/ML VIAL IV PUSH PRN ×2 (18:24)
[2017-03-13] VITALS (8 sets, daily range): BP systolic 92–126; BP diastolic 55–62; PULSE 89–103; RESP 18–21; TEMP 97.5–99.2; O2SAT 97–100
[2017-03-13] MEDS: CHLORHEXIDINE GLUCONATE 2 % 1 PACK (2 CLOTHS) TOP SCH ×2 (03:49)
[2017-03-13] MEDS: RESP: ALBUTEROL 2.5 MG/IPRATROPIUM 0.5 MG NEB (SCH) NEB ×2 (08:20)
[2017-03-13] MEDS: METOPROLOL TARTRATE 25 MG TAB DOBHOFF SCH ×4 (08:22→20:32)
[2017-03-13] MEDS: DOCUSATE SODIUM 50 MG/SENNA 8.6 MG TAB G-TUBE SCH ×4 (08:23→20:30)
[2017-03-13] MEDS: LACTOBACILLUS ACIDOPHILUS TAB G-TUBE SCH ×6 (08:23→17:08)
[2017-03-13] MEDS: ASPIRIN EC 81 MG TABEC SCH ×2 (08:23)
[2017-03-13] MEDS: INSULIN ASPART SUPPLEMENTAL SCALE SQ SCH ×8 (08:24→20:30)
[2017-03-13] MEDS: SODIUM CHLORIDE 0.9% FLUSH 10 ML FLUSH IV FLUSH SCH ×4 (08:24→20:30)
[2017-03-13] MEDS: INSULIN DETEMIR 100 UNITS/ML VIAL SQ SCH ×4 (08:25→20:30)
[2017-03-13] MEDS: LORazepam 2 MG/ML VIAL IV PUSH PRN ×4 (08:39→21:43)
--- NOTE | 2017-03-13 08:58 | HHI.PR ---
Subjective Remarks in no distress. on restraints. afebrile. d/w the RN and no acute issues over night. Objective Vitals Vital Signs Date Time Temp Pulse Resp B/P (MAP) Pulse Ox O2 Delivery O2 Flow Rate FiO2 03/13/17 08:21 97 Nasal Cannula 2.50 03/13/17 08:19 97.9 92 20 107/62 (77) 98 03/13/17 08:00 Nasal Cannula 2.00 03/13/17 04:00 97.5 89 18 92/55 (67) 100 03/13/17 04:00 Nasal Cannula 2.00 03/13/17 00:00 98.4 99 18 109/55 (73) 100 03/13/17 00:00 Nasal Cannula 2.00 03/12/17 21:35 97 Nasal Cannula 1.00 03/12/17 20:00 98.1 99 20 104/59 (74) 100 03/12/17 20:00 90 03/12/17 20:00 Nasal Cannula 2.00 03/12/17 16:00 97.6 95 24 108/56 (73) 100 03/12/17 11:30 97.3 91 20 100/55 (70) 100 03/12/17 11:26 Nasal Cannula 1.00 03/12/17 08:59 99 Nasal Cannula 2.50 I/O 03/12/17 03/12/17 03/12/17 03/13/17 03/13/17 03/13/17 07:00 15:00 23:00 07:00 15:00 23:00 Intake Total 392 ml 0 ml Output Total 200 ml 2050 ml 100 ml Balance 192 ml -2050 ml -100 ml Intake Oral 120 ml 0 ml Tube Feeding 272 ml Output Urine Total 200 ml 50 ml 100 ml Hemodialysis 2000 ml # Bowel Movements 3 1 1 Result Diagram: 03/11/17 0550 03/12/17 1006 Imaging Last Impressions Abdomen X-Ray 03/08/17 0000 Signed Impressions: Service Date/Time: Wednesday, March 08, 2017 18:51 - CONCLUSION: Interval advancement of nasogastric tube into the stomach. Richard Bess MD Chest X-Ray 03/06/17 0000 Signed Impressions: Service Date/Time: Monday, March 06, 2017 16:37 - CONCLUSION: 1. Good position of both left central lines. No evidence of pneumothorax. 2. Stable bilateral lower lung consolidation and right pleural effusion. Dontrell Oneil MD Soft Tissue Neck X-Ray 03/05/17 Signed Impressions: Service Date/Time: February 15:18 - CONCLUSION: Limited exam. No acute abnormality. Dontrell Mcqueen Jr., MD Head CT 02/27/17 Signed Impressions: Service Date/Time: Monday, February 27, 2017 12:47 - CONCLUSION: 1. No acute intracranial abnormality is identified. There are no findings to indicate ischemia and no acute blood products are present. 2. Chronic brain changes include generalized atrophy and periventricular white matter change characteristic of chronic microvascular ischemia. 3. There is trace air within the cavernous sinus bilaterally and in the left superior ophthalmic vein likely related to IV access. Flakito Silva MD Carotid Artery Ultrasound 02/27/17 Signed Impressions: Service Date/Time: Monday, February 27, 2017 14:35 - CONCLUSION: 1. Severe noncalcified plaque in the left carotid bulb and left internal carotid artery with a possible complete occlusion of the left internal carotid artery. No Doppler signal is identified in the vessel which could indicate complete occlusion or severe high-grade stenosis. Consider carotid CTA for further evaluation. 2. There is mild to moderate noncalcified plaque in the right carotid bulb. Less than 50%% stenosis is present within the right internal carotid artery. 3. Please note that the right external carotid artery is not visualized. Flakito Silva MD Hepatobiliary Scan Nuclear Medicine 02/24/17 Signed Impressions: Service Date/Time: Friday, February 24, 2017 12:33 - CONCLUSION: 1. Lack of visualization of the gallbladder. We will have the patient return for delayed imaging. At this point acute cholecystitis versus chronic cholecystitis. Dontrell Mcqueen Jr., MD ADDENDUM: 24-hour delayed imaging shows activity within the gallbladder. This would be consistent with chronic cholecystitis. Dontrell Mcqueen Jr., MD Liver Ultrasound 02/20/17 Signed Impressions: Service Date/Time: Monday, February 20, 2017 10:51 - CONCLUSION: Gallstones and gallbladder wall thickening. There is no intrahepatic biliary duct dilatation. Rylan Wang MD FACR Renal Ultrasound 02/19/17 Signed Impressions: Service Date/Time: February 17:19 - CONCLUSION: No evidence of hydronephrosis. Indwelling Scott catheter with collapsed bladder in thickened bladder wall. Cal Tomlinson MD Objective Remarks GENERAL: in no acute distress HEENT; NG tube in place- pupils with minimal reaction to light bilaterally CARDIOVASCULAR: Regular rate and regular rhythm without murmurs, gallops, or rubs. RESPIRATORY: bilateral air entry present GASTROINTESTINAL: Abdomen soft, non-tender, nondistended. Normal, active bowel sounds MUSCULOSKELETAL: Extremities without clubbing, cyanosis, or edema. NEURO: mildly lethargic but easily arousable. Procedures Vascath 2, central line, PEG Medications and IVs Current Medications IV Flush (NS Flush) 2 ml UNSCH PRN IV FLUSH FLUSH AFTER USING IV ACCESS; Start 02/19/17 at 12:15; Stop 02/19/17 at 16:15; Status DC Sodium Chloride 1,000 ml @ 1,000 mls/hr Q1H IV Last administered on 12:17; Start 02/19/17 at 12:05; Stop 02/19/17 at 13:04; Status DC Sodium Chloride 1,000 ml @ 999 mls/hr BOLUS ONCE IV Last administered on 12:18; Start 02/19/17 at 12:15; Stop 02/19/17 at 13:15; Status DC Insulin Human Regular (NovoLIN R INJ) 10 units ONCE ONCE IV PUSH Last administered on 02/19/17 12:23; Start 02/19/17 at 12:15; Stop 02/19/17 at 12 :16; Status DC Sodium Chloride 1,000 ml @ 999 mls/hr BOLUS ONCE IV Last administered on 13:25; Start 02/19/17 at 13:00; Stop 02/19/17 at 14:00; Status DC Sodium Chloride 1,000 ml @ 250 mls/hr Q4H IV Last administered on 02/19/17 14:36; Start 02/19/17 at 13:35; Stop 02/19/17 at 16:40; Status DC Dextrose/Sodium Chloride 1,000 ml @ 200 mls/hr Q5H IV ; Start 02/19/17 at 13: 35; Stop 02/20/17 at 00:07; Status DC Insulin Human Regular 100 units/ Sodium Chloride 100 ml @ 6.5 mls/hr TITRATE IV Last administered on 02/20/17 00:30; Start 02/19/17 at 15:00; Stop 02/20 at 09:24; Status DC Sodium Bicarbonate (Sodium Bicarbonate 8.4% Inj) 100 meq UNSCH PRN IV PUSH SEE LABEL COMMENTS; Start 02/19/17 at 13:45 Sodium Bicarbonate (Sodium Bicarbonate 8.4% Inj) 50 meq UNSCH PRN IV PUSH SEE LABEL COMMENTS; Start 02/19/17 at 13:45 Sodium Phosphate 15 mmol/Sodium Chloride 105 ml @ 25 mls/hr UNSCH PRN IV SEE LABEL COMMENTS; Start 02/19/17 at 13:45 Miscellaneous Information 1 Q361D XX ; Start 02/19/17 at 13:45; Stop 02/19/17 at 16:14; Status DC Chlorhexidine Gluconate (Chlorhexidine 2% Cloth) 3 pack Taper DAILY@04 TOP ; Start 02/20/17 at 04:00; Stop 02/20/17 at 04:00; Status DC Chlorhexidine Gluconate (Chlorhexidine 2% Cloth) 3 pack UNSCH PRN TOP HYGIENIC CARE; Start 02/19/17 at 13:45; Stop 02/19/17 at 16:14; Status DC Piperacillin Sod/ Tazobactam Sod 100 ml @ 200 mls/hr ONCE ONCE IV Last administered on 02/19/17 14:36; Start 02/19/17 at 14:30; Stop 02/19/17 at 14 :59; Status DC Vancomycin HCl 1000 mg/Sodium Chloride 250 ml @ 250 mls/hr ONCE ONCE IV Last administered on 02/19/17 14:36; Start 02/19/17 at 14:30; Stop 02/19/17 at 15 :29; Status DC Sodium Chloride (NS Flush) 2 ml UNSCH PRN IV FLUSH FLUSH AFTER USING IV ACCESS ; Start 02/19/17 at 14:15 Sodium Chloride (NS Flush) 2 ml BID IV FLUSH Last administered on 03/13/17 08: 24; Start 02/19/17 at 21:00 Pantoprazole Sodium (Protonix Inj) 40 mg DAILY IV PUSH Last administered on 08:23; Start 02/20/17 at 09:00; Stop 03/01/17 at 11:25; Status DC Albuterol/ Ipratropium (Duoneb Neb) 1 ampule Q6HR NEB INH Last administered on 02/22/17 10:35; Start 02/19/17 at 16:00; Stop 02/22/17 at 13:56; Status DC Albuterol/ Ipratropium (Duoneb Neb) 1 ampule Q4HR NEB PRN INH WHEEZING; Start 02/19/17 at 14:15; Stop 02/22/17 at 13:57; Status DC Heparin Sodium (Porcine) (Heparin Inj) 5,000 units Q12H SQ Last administered on 03/08/17 17:39; Start 02/19/17 at 17:00; Status Future Hold Miscellaneous Information 1 Q361D XX ; Start 02/19/17 at 14:15 Chlorhexidine Gluconate (Chlorhexidine 2% Cloth) 3 pack Taper DAILY@04 TOP Last administered on 02/25/17 02:34; Start 02/20/17 at 04:00; Stop 02/16/18 at 03:59 Chlorhexidine Gluconate (Chlorhexidine 2% Cloth) 3 pack UNSCH PRN TOP HYGIENIC CARE; Start 02/19/17 at 14:15 Senna/Docusate Sodium (Princess-Colace) 1 tab BID PO Last administered on 08:54; Start 02/19/17 at 21:00; Stop 03/11/17 at 13:54; Status DC Magnesium Hydroxide (Milk Of Magnesia Liq) 30 ml Q12H PRN PO MILD - MODERATE CONSTIPATION; Start 02/19/17 at 14:15; Stop 03/05/17 at 12:16; Status DC Sennosides (Senokot) 17.2 mg Q12H PRN PO MODERATE - SEVERE CONSTIPATION; Start 02/19/17 at 14:15; Stop 03/11/17 at 13:54; Status DC Bisacodyl (Dulcolax Supp) 10 mg DAILY PRN RECTAL SEVERE CONSITIPATION; Start 02/19/17 at 14:15 Lactulose (Lactulose Liq) 30 ml DAILY PRN PO SEVERE CONSITIPATION; Start 02/19 at 14:15 Aspirin (Aspirin Chew) 81 mg DAILY CHEW Last administered on 02/21/17 07:46; Start 02/19/17 at 15:15; Stop 03/01/17 at 11:25; Status DC Piperacillin Sod/ Tazobactam Sod 50 ml @ 100 mls/hr Q6H IV Last administered on 02/22/17 21:10; Start 02/19/17 at 21:00; Stop 02/23/17 at 01:15; Status DC Sodium Chloride 1,000 ml @ 999 mls/hr BOLUS ONCE IV Last administered on 16:53; Start 02/19/17 at 16:15; Stop 02/19/17 at 17:15; Status DC Metoprolol Tartrate (Lopressor) 25 mg Q8HR PO Last administered on 03/10/17 21:49; Start 02/19/17 at 16:30; Stop 03/11/17 at 13:54; Status DC Sodium Chloride 1,000 ml @ 100 mls/hr Q10H IV Last administered on 02/19/17 17:22; Start 02/19/17 at 16:45; Stop 02/20/17 at 00:07; Status DC Sodium Bicarbonate (Sodium Bicarbonate 8.4% Inj) 50 meq ONCE ONCE IV PUSH Last administered on 02/19/17 16:50; Start 02/19/17 at 17:00; Stop 02/19/17 at 17:01; Status DC Sodium Chloride 1,000 ml @ 999 mls/hr BOLUS ONCE IV ; Start 02/19/17 at 17:00 ; Stop 02/19/17 at 18:00; Status DC Melatonin (Melatonin) 5 mg HS PRN PO SLEEP Last administered on 03/01/17 22: 58; Start 02/19/17 at 22:15 Potassium Chloride 100 ml @ 25 mls/hr BOLUS ONCE IV Last administered on 00:18; Start 02/20/17 at 00:15; Stop 02/20/17 at 04:14; Status DC Dextrose 1,000 ml @ 120 mls/hr Q8H20M IV Last administered on 02/20/17 08:59 ; Start 02/20/17 at 00:15; Stop 02/20/17 at 09:24; Status DC Miscellaneous Information 1 ONCE ONCE .XX ; Start 02/20/17 at 09:30; Stop at 10:06; Status DC Miscellaneous Information 1 ONCE ONCE .XX ; Start 02/20/17 at 09:30; Stop at 10:01; Status DC Insulin Detemir (Levemir Inj) 5 units Q12H SQ Last administered on 02/22/17 08:22; Start 02/20/17 at 09:30; Stop 02/27/17 at 08:32; Status DC Insulin Aspart (NovoLOG INJ) 3 units TIDAC SQ Last administered on 02/22/17 08:00; Start 02/20/17 at 12:00; Stop 03/01/17 at 11:25; Status DC Insulin Aspart (NovoLOG SUPPLEMENTAL SCALE) 1 ACHS SLIDING SCALE SQ Last administered on 02/20/17 21:31; Start 02/20/17 at 12:00; Stop 02/24/17 at 09 :01; Status DC Dextrose (D50w (Vial) Inj) 50 ml UNSCH PRN IV PUSH HYPOGLYCEMIA-SEE COMMENTS Last administered on 02/22/17 12:32; Start 02/20/17 at 09:30; Stop 02/27/17 at 08:38; Status DC Glucagon (Glucagon Inj) 1 mg UNSCH PRN OTHER HYPOGLYCEMIA-SEE COMMENTS; Start 02/20/17 at 09:30; Stop 02/27/17 at 08:38; Status DC Sodium Chloride 1,000 ml @ 60 mls/hr [id number] IV Last administered on 12:14; Start 02/20/17 at 09:30; Stop 02/22/17 at 13:47; Status DC Haloperidol Lactate (Haldol Inj) 2 mg Q4H PRN IV agitation; Start 02/20/17 at 09:45; Stop 03/01/17 at 11:39; Status DC Lorazepam (Ativan Inj) 1 mg Q6H PRN IV PUSH ANXIETY AND/OR AGITATION Last administered on 03/13/17 08:39; Start 02/21/17 at 08:00 Sodium Chloride 1,000 ml @ 0 mls/hr Q0M PRN OTHER For Prime & Rinse Back; Start 02/21/17 at 10:55 Heparin Sodium (Porcine) (Heparin Inj) 8,000 units UNSCH PRN IV FLUSH WITH DIALYSIS; Start 02/21/17 at 11:00 Sodium Chloride 1,000 ml @ 200 mls/hr Q5H PRN IV WITH DIALYSIS Last administered on 02/21/17 14:48; Start 02/21/17 at 10:55 Sodium Chloride 1,000 ml @ 0 mls/hr Q0M PRN OTHER WITH DIALYSIS; Start at 10:55 Mannitol (Mannitol Inj) 12.5 gm UNSCH PRN IV WITH DIALYSIS Last administered on 02/21/17 14:48; Start 02/21/17 at 11:00 Albumin Human 100 ml @ 60 mls/hr UNSCH PRN IV WITH DIALYSIS Last administered on 03/10/17 10:18; Start 02/21/17 at 11:00 Sodium Chloride (NS Flush) 5 ml UNSCH PRN IV FLUSH WITH DIALYSIS; Start at 11:00 Heparin Sodium (Porcine) (Heparin Inj) UNSCH PRN .XX WITH DIALYSIS Last administered on 03/10/17 10:18; Start 02/21/17 at 11:00 Gentamicin Sulfate (Gentamicin (Dialysis) Inj) 20 mg UNSCH PRN OTHER WITH DIALYSIS Last administered on 03/12/17 18:24; Start 02/21/17 at 11:00 Ondansetron HCl (Zofran Inj) 4 mg UNSCH PRN IV PUSH WITH DIALYSIS; Start 02/21 at 11:00 Acetaminophen (Tylenol) 650 mg UNSCH PRN PO for headach, pain, temp > 101F Last administered on 03/09/17 19:38; Start 02/21/17 at 11:00; Stop 03/11/17 at 13:54; Status DC Diphenhydramine HCl (Benadryl) 25 mg UNSCH PRN PO for hives/itching/ anaphylaxis Last administered on 03/05/17 21:35; Start 02/21/17 at 11:00; Stop 03/11/17 at 13:54; Status DC Nitroglycerin (Nitrostat Sl) 0.4 mg UNSCH PRN SL CHEST PAIN; Start 02/21/17 at 11:00 Clonidine (Catapres) 0.1 mg UNSCH PRN PO for BP > 180/100 X 2 readings; Start 02/21/17 at 11:00 Gelatin (Gelfoam 12 Mm/7 Mm Top) 1 foam UNSCH PRN TOP SEE LABEL COMMENTS; Start 02/21/17 at 11:00 Midazolam HCl (Versed Inj) 5 mg STK-MED ONCE .ROUTE ; Start 02/21/17 at 12:47; Stop 02/21/17 at 12:48; Status DC Flumazenil (Romazicon Inj) 0.5 mg STK-MED ONCE .ROUTE ; Start 02/21/17 at 13:42 ; Stop 02/21/17 at 13:43; Status DC Flumazenil (Romazicon Inj) 0.5 mg STK-MED ONCE .ROUTE ; Start 02/21/17 at 13:42 ; Stop 02/21/17 at 13:43; Status DC Flumazenil (Romazicon Inj) 0.5 mg STAT ONCE IV ; Start 02/21/17 at 14:00; Stop 02/21/17 at 14:01; Status DC Albuterol/ Ipratropium (Duoneb Neb) 1 ampule Q4HR NEB INH Last administered on 02/26/17 15:35; Start 02/22/17 at 16:00; Stop 02/26/17 at 15:59; Status DC Albuterol/ Ipratropium (Duoneb Neb) 1 ampule Q2HR NEB PRN INH WHEEZING Last administered on 03/12/17 11:15; Start 02/22/17 at 14:00 Dextrose 1,000 ml @ 42 mls/hr [id number] IV Last administered on 02/22/17 18:45 ; Start 02/22/17 at 18:45; Stop 02/23/17 at 11:20; Status DC Vancomycin HCl 1000 mg/Sodium Chloride 250 ml @ 250 mls/hr ONCE ONCE IV Last administered on 02/23/17 01:38; Start 02/23/17 at 01:30; Stop 02/23/17 at 02 :29; Status DC Metronidazole 100 ml @ 100 mls/hr Q8H IV Last administered on 02/27/17 05:44 ; Start 02/23/17 at 12:00; Stop 02/27/17 at 09:08; Status DC Levofloxacin/ Dextrose 50 ml @ 50 mls/hr Q24H IV Last administered on 12:05; Start 02/23/17 at 11:00; Stop 02/27/17 at 09:08; Status DC Sodium Chloride 154 meq/Dextrose 1,038.5 ml @ 20 mls/hr Q24H IV Last administered on 02/23/17 13:28; Start 02/23/17 at 12:00; Stop 02/24/17 at 00 :50; Status DC Dextrose 1,000 ml @ 42 mls/hr [id number] IV Last administered on 02/24/17 01:46 ; Start 02/24/17 at 01:00; Stop 02/24/17 at 04:39; Status DC Insulin Human Regular (NovoLIN R INJ) 10 units NOW ONCE IV PUSH Last administered on 02/24/17 05:01; Start 02/24/17 at 04:45; Stop 02/24/17 at 04 :47; Status DC Insulin Human Regular (NovoLIN R INJ) 10 units ONCE ONCE IV PUSH Last administered on 02/24/17 06:30; Start 02/24/17 at 06:15; Stop 02/24/17 at 06 :16; Status DC Dextrose (D50w (Vial) Inj) 50 ml UNSCH PRN IV PUSH HYPOGLYCEMIA-SEE COMMENTS Last administered on 03/06/17 04:39; Start 02/24/17 at 08:30 Glucagon (Glucagon Inj) 1 mg UNSCH PRN OTHER HYPOGLYCEMIA-SEE COMMENTS; Start 02/24/17 at 08:30 Insulin Aspart (NovoLOG SUPPLEMENTAL SCALE) 1 ACHS SLIDING SCALE SQ Last administered on 02/26/17 22:44; Start 02/24/17 at 12:00; Stop 02/27/17 at 08 :36; Status DC Insulin Detemir (Levemir Inj) 5 units Q12HR SQ Last administered on 02/26/17 22:44; Start 02/25/17 at 09:00; Stop 02/27/17 at 08:32; Status DC Lactobacillus Acidophilus (Lactinex) 1 tab TID PO Last administered on 08:54; Start 02/25/17 at 13:00; Stop 03/11/17 at 13:54; Status DC Potassium Chloride (KCl Powder) 20 meq ONCE ONCE PO Last administered on 02/26 14:15; Start 02/26/17 at 14:15; Stop 02/26/17 at 14:16; Status DC Insulin Detemir (Levemir Inj) 12 units DAILYAC SQ ; Start 02/27/17 at 08:30; Stop 02/27/17 at 08:40; Status DC Insulin Detemir (Levemir Inj) 10 units HS SQ ; Start 02/27/17 at 21:00; Stop 02/27/17 at 21:00; Status DC Insulin Aspart (NovoLOG SUPPLEMENTAL SCALE) 1 ACHS SLIDING SCALE SQ Last administered on 03/13/17 08:24; Start 02/27/17 at 12:00 Insulin Detemir (Levemir Inj) 8 units DAILYAC SQ Last administered on 09:10; Start 02/28/17 at 08:00; Stop 03/05/17 at 18:33; Status DC Insulin Detemir (Levemir Inj) 8 units HS SQ Last administered on 03/03/17 20: 47; Start 02/27/17 at 21:00; Stop 03/05/17 at 12:16; Status DC Levofloxacin (Levaquin) 250 mg DAILY PO Last administered on 03/02/17 09:21; Start 02/27/17 at 11:00; Stop 03/03/17 at 10:03; Status DC Metronidazole (Flagyl) 500 mg Q8HR PO Last administered on 03/05/17 05:17; Start 02/27/17 at 14:00; Stop 03/05/17 at 12:00; Status DC Sodium Chloride 1,000 ml @ 60 mls/hr [id number] IV Last administered on 03:00; Start 02/27/17 at 13:00; Stop 02/28/17 at 14:52; Status DC Norepinephrine Bitartrate 4 mg/ Sodium Chloride 250 ml @ 7.5 mls/hr TITRATE PRN IV Blood pressure management Last administered on 02/28/17 00:18; Start 02/27/17 at 13:30; Stop 03/01/17 at 14:26; Status DC Terbutaline Sulfate (Brethine Inj) 1 mg UNSCH PRN SQ For Extravasation; Start 02/27/17 at 13:30 Sodium Chloride 250 ml @ 250 mls/hr BOLUS ONCE IV Last administered on 13:20; Start 02/27/17 at 13:30; Stop 02/27/17 at 14:29; Status DC Potassium Phosphate (K-Phos) 500 mg ONCE ONCE PO ; Start 02/27/17 at 13:30; Stop 02/27/17 at 13:33; Status DC Aspirin (Aspirin Supp) 300 mg STAT ONCE RECTAL Last administered on 16:15; Start 02/27/17 at 16:00; Stop 02/27/17 at 16:03; Status DC Aspirin (Ecotrin Ec) 81 mg DAILY PO Last administered on 03/11/17 08:54; Start 02/28/17 at 09:00; Stop 03/11/17 at 13:54; Status DC Influenza Virus Vaccine (Flu (Quadrivalent) Vaccine Inj) 0.5 ml ONCE ONCE IM Last administered on 03/03/17 09:55; Start 03/03/17 at 10:00; Stop 03/03/17 at 10:01; Status DC Sodium Chloride 1,000 ml @ 30 mls/hr Q24H PRN IV if po < 50% for one liter Last administered on 03/05/17 14:38; Start 03/02/17 at 13:15; Stop 03/05/17 at 18:27; Status DC Levofloxacin (Levaquin) 250 mg Q48H PO Last administered on 03/05/17 11:50; Start 03/03/17 at 11:00; Stop 03/05/17 at 23:55; Status DC Albuterol/ Ipratropium (Duoneb Neb) 1 ampule TID NEB NEB Last administered on 03/09/17 08:39; Start 03/05/17 at 14:00; Stop 03/09/17 at 10:58; Status DC Dextrose/Sodium Chloride 1,000 ml @ 30 mls/hr Q24H IV Last administered on 19:00; Start 03/05/17 at 18:45; Stop 03/06/17 at 05:19; Status DC Insulin Detemir (Levemir Inj) 4 units DAILYAC SQ Last administered on 08:55; Start 03/06/17 at 08:00; Stop 03/11/17 at 09:46; Status DC Sodium Polystyrene Sulfonate (Kayexalate Enema) 30 gm ONCE ONCE RECTAL Last administered on 03/05/17 01:00; Start 03/05/17 at 22:45; Stop 03/05/17 at 22 :46; Status DC Furosemide (Lasix Inj) 20 mg UNSCH X1 IV ; Start 03/06/17 at 06:30; Stop at 08:00; Status DC Midazolam HCl (Versed Inj) 5 mg STK-MED ONCE .ROUTE ; Start 03/06/17 at 14:45; Stop 03/06/17 at 14:46; Status DC Midazolam HCl (Versed Inj) 2 mg NOW ONCE IV Last administered on 03/06/17 15 :00; Start 03/06/17 at 15:45; Stop 03/06/17 at 15:46; Status DC Midazolam HCl (Versed Inj) 3 mg ONCE ONCE IV ; Start 03/06/17 at 15:45; Stop 03/06/17 at 15:46; Status DC Albuterol/ Ipratropium (Duoneb Neb) 1 ampule TID NEB NEB Last administered on 03/13/17 08:20; Start 03/09/17 at 14:00 Miscellaneous Information ALL NURSING DEPARTME... UNSCH PRN .XX SEE LABEL COMMENTS; Start 03/09/17 at 16:14; Stop 03/10/17 at 16:13; Status DC Epoetin Samuel (Epogen Inj) 10,000 units UNSCH PRN IV PUSH WITH DIALYSIS Last administered on 03/12/17 18:24; Start 03/10/17 at 11:30 Insulin Detemir (Levemir Inj) 8 units DAILYAC SQ Last administered on 08:25; Start 03/12/17 at 08:00 Insulin Detemir (Levemir Inj) 8 units HS SQ Last administered on 03/12/17 20: 50; Start 03/11/17 at 21:00 Insulin Detemir (Levemir Inj) 4 units ONCE ONCE SQ Last administered on 12:23; Start 03/11/17 at 11:30; Stop 03/11/17 at 11:31; Status DC Acetaminophen (Tylenol) 650 mg UNSCH PRN G-TUBE for headach, pain, temp > 101F Last administered on 03/13/17 02:36; Start 03/11/17 at 14:00 Aspirin (Ecotrin Ec) 81 mg DAILY .XX Last administered on 03/13/17 08:23; Start 03/12/17 at 09:00 Diphenhydramine HCl (Benadryl) 25 mg UNSCH PRN G-TUBE for hives/itching/ anaphylaxis; Start 03/11/17 at 14:00 Senna/Docusate Sodium (Princess-Colace) 1 tab BID G-TUBE Last administered on 08:23; Start 03/11/17 at 21:00 Lactobacillus Acidophilus (Lactinex) 1 tab TID G-TUBE Last administered on 03/13 08:23; Start 03/11/17 at 18:00 Metoprolol Tartrate (Lopressor) 25 mg Q8HR DOBHOFF Last administered on 15:22; Start 03/11/17 at 14:00; Stop 03/12/17 at 08:53; Status DC Sennosides (Senokot) 17.2 mg Q12H PRN G-TUBE MODERATE - SEVERE CONSTIPATION; Start 03/11/17 at 14:15 Metoprolol Tartrate (Lopressor) 25 mg BID DOBHOFF ; Start 03/12/17 at 21:00 Ephedrine Sulfate (ePHEDrine/NS 25 MG/5 ML SYR) 25 mg STK-MED ONCE IV ; Start 03/09/17 at 12:00; Stop 03/12/17 at 15:01; Status DC Propofol (Diprivan 200 Mg/20 ml Inj) 200 mg STK-MED ONCE IV ; Start 03/09/17 at 12:00; Stop 03/12/17 at 15:01; Status DC Sodium Chloride (Sodium Chloride 0.9% Inj) 20 ml STK-MED ONCE IV ; Start at 12:00; Stop 03/12/17 at 15:01; Status DC A/P Problem List: (1) Acute metabolic encephalopathy ICD Code: G93.41 - Metabolic encephalopathy (2) Altered mental status ICD Code: R41.82 - Altered mental status, unspecified Status: Acute (3) DKA (diabetic ketoacidoses) ICD Code: E13.10 - Other specified diabetes mellitus with ketoacidosis without coma Status: Resolved (4) Non-STEMI (non-ST elevated myocardial infarction) ICD Code: I21.4 - Non-ST elevation (NSTEMI) myocardial infarction Status: Acute (5) Dehydration with hypernatremia ICD Code: E87.0 - Hyperosmolality and hypernatremia Status: Resolved (6) Sepsis ICD Code: A41.9 - Sepsis, unspecified organism Status: Acute (7) UTI (urinary tract infection) ICD Code: N39.0 - Urinary tract infection, site not specified Status: Acute (8) Acute renal failure ICD Code: N17.9 - Acute kidney failure, unspecified Status: Acute (9) Hyperglycemia ICD Code: R73.9 - Hyperglycemia, unspecified Status: Acute (10) Lactic acidemia ICD Code: E87.2 - Acidosis (11) Transaminitis ICD Code: R74.0 - Nonspecific elevation of levels of transaminase and lactic acid dehydrogenase [LDH] (12) Respiratory insufficiency ICD Code: R06.89 - Other abnormalities of breathing Assessment and Plan A/P Acute encephalopathy, recurrent and multifactorial. Not improving -repeated CT with no acute abnormality. -Treat agitation with when necessary Haldol -rpt EEG without seizure. Carotid sonogram showed left carotid occlusion and 50 % stenosis on the right carotid. Patient on aspirin. Patient on statin currently on hold because of transaminitis. Holter monitor results as follows normal Sinus rhythm with an average heart rate of 86 beats per minute. There were periods of sinus tachycardia up to 124 beats per minute at 9:10pm. There were 3,693 PVCs, 51 cycles of ventricular bigeminy, 419 ventricular couplets and 14 runs of wide complex tachycardia, the longest being 3 beats with a maximum heart rate of 145 beats per minute. The 3 beat runs of wide complex tachycardia are polymorphic. There are no PACs. -Status post neurology evaluation believes this is metabolic. 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 Stable - keep on oxygen as needed to keep O2 sat >90% - continue neb treatment. - Lasix if tolerated elevated troponin Hypertension cardiomyopathy - echo with EF 25% - Aspirin - Metoprolol 25 mg every 8 hours. Unable to start MILDRED inhibitor secondary to acute kidney injury - Avoid statins due to transaminitis - evaluated by cardiology. Transaminitis chronic cholecystitis - Monitor liver enzymes Acute kidney injury superimposed on chronic kidney disease . Oliguric to anuric Severe dehydration - Baseline creatinine 1.8 to 2. Acute worsening secondary to severe dehydration , ATN and DKA - Monitor renal function closely. - Creatinine is rising with episodes of confusion likely secondary to uremia. Nephrology to manage hemodialysis Probable sepsis UTI -- one bottle of the blood cultures with staph coag. negative-likely contamination. -ID consult appreciated status post Levaquin and Flagyl diarrhea- stool negative for c-diff. Anemia thrombocytopenia from Sepsis/DIC -Resolved thrombocytopenia -hematology following. -Monitor CBC. DKA-resolved now hyperglycemic secondary to tube feeding -continue sliding scale coverage. -increase levemir ; 10 units twice a day, A1c 10. -Hypoglycemia protocol FEN. Tube feeding via PEG PROPH: - Bilateral lower extremity SCDs. Discharge Planning d/w the daughter at the bedside; code status and goals of care were discussed again; she wants to talk to the rest of the family regarding the code status and possible transition to hospice. d/w the RN. Problem Qualifiers (1) Altered mental status: Qualified Codes: R41.82 - Altered mental status, unspecified (2) DKA (diabetic ketoacidoses): (3) Sepsis: Qualified Codes: A41.9 - Sepsis, unspecified organism (4) UTI (urinary tract infection): (5) Acute renal failure: Qualified Codes: N17.9 - Acute kidney failure, unspecified Orion Braden MD Mar 13, 2017 08:58
[2017-03-13] MEDS ORDERED: ACETAMINOPHEN 325 MG TAB G-TUBE PRN ×2 (09:15)
--- NOTE | 2017-03-13 10:05 | HHI.NPPN ---
Subjective Renal Failure: Chronic, Acute Interval History Dialyzed yesterday. Remains oliguric. Daughter at bedside. She had questions about hospice. He is sleepy, non verbal today. (Gely Dill) Review of Systems General General Remarks unable to evaluate (Gely Dill) Objective Data Data Vital Signs Date Time Temp Pulse Resp B/P (MAP) Pulse Ox O2 Delivery O2 Flow Rate FiO2 03/13/17 08:21 97 Nasal Cannula 2.50 03/13/17 08:19 97.9 92 20 107/62 (77) 98 03/13/17 08:00 Nasal Cannula 2.00 03/13/17 07:52 90 03/13/17 04:00 97.5 89 18 92/55 (67) 100 03/13/17 04:00 Nasal Cannula 2.00 03/13/17 00:00 98.4 99 18 109/55 (73) 100 03/13/17 00:00 Nasal Cannula 2.00 03/12/17 21:35 97 Nasal Cannula 1.00 03/12/17 20:00 98.1 99 20 104/59 (74) 100 03/12/17 20:00 90 03/12/17 20:00 Nasal Cannula 2.00 03/12/17 16:00 97.6 95 24 108/56 (73) 100 03/12/17 11:30 97.3 91 20 100/55 (70) 100 03/12/17 11:26 Nasal Cannula 1.00 (Gely Dill) -: 03/11/17 0550 03/12/17 1006 Tubes & Lines: Vas-Cath Tubes & Lines Comment TLC and vascath left IJ Drip Comment None (Gely Dill) Physical Exam General Appearance: Sleeping, Malnourished Appearance Remarks Disheveled, obtunded, restless (Gely Dill) Eyes Eye Exam: Pupils Equal, Pupils Reactive (Gely Dill) Throat Throat Exam: Oral Mucosa [place] & Moist (Gely Dill) Neck Neck Exam: Neck Supple (Gely Dill) Pulmonary Resp Exam: Breath Sounds Equal, No Distress, Rhonchi, Decreased Bases Resp Remarks irregular in depth and rate (Gely Dill) Cardiology CV Exam: Regular, Normal Sinus Rhythm, Good Perfusion (Gely Dill) Gastrointestinal/Abdomen GI Exam: Soft, Non-Tender, Bowel Sounds Present (Gely Dill) Genitourinary Exam: Bladder Non-Palpable (Gely Dill) Musculoskeletal MS Exam: Joints Intact, Atrophy, Unable to Ambulate (Gely Dill) Integumentary Skin Exam: Clear, Warm, Dry, Intact (Gely Dill) Extremeties Extremities Exam: No Edema, Pedal Pulses Palpable (Gely Dill) Neurologic Neuro Exam: Awake, Moving All Extremities, Obtunded (Gely Dill) VTE Prophylaxis Device: SCDs (Gely Dill) Assessment/Plan Discussed Condition With: Daughter Assessment Summary: HERVE/Acute Renal Failure, Acute Tubular Necrosis, Diabetes Mellitus Problem List: (1) Acute renal failure ICD Codes: N17.9 - Acute kidney failure, unspecified Status: Acute Plan: This patient has underlying renal impairment, creatinine 1.8-2 at baseline He has 1.2 g proteinuria, which 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 HERVE from ATN secondary to dehydration, sepsis, and DKA HD initiated 02/21; vascath was replaced on 03/06 He is oliguric, obtain bladder scan today Repeat labs tomorrow, HD if needed Continue dialysis TTS if needed Avoid IVF On Nephro via PEG with free water flushes His BP is borderline low, reduce Metoprolol 12.5 BID [employer] HD arrangements have not been made; he may have reached ESRD however we are unable to make that diagnosis at this time. In addition his mental status is not at the level required for outpatient HD. Will monitor for changes. (2) encephalopathy Plan: etiology uncertain, likely metabolic monitor mental status work up has been negative (3) DKA (diabetic ketoacidoses) ICD Codes: E13.10 - Other specified diabetes mellitus with ketoacidosis without coma Status: Resolved Plan: DKA resolved; A1c is 10 Diabetic control has been better, continue to adjust insulin with primary team. (4) Elevated troponin ICD Codes: R74.8 - Abnormal levels of other serum enzymes Plan: cardiology has evaluated suspect demand ischemia as etiology of elevated troponin levels 2D echo shows EF 25% (5) Sepsis ICD Codes: A41.9 - Sepsis, unspecified organism Status: Acute Plan: Resolving He is off antibiotics 1/2 blood cultures with staph hominis, likely contaminant HIDA scan taken, unable to visualize GB, results showing chronic cholecystitis (6) Dehydration with hypernatremia ICD Codes: E87.0 - Hyperosmolality and hypernatremia Status: Resolved Plan: Corrected, monitor for recurrence (7) anemia Plan: Normocytic anemia, may have anemia of chronic disease On epogen with dialysis (Gely Dill) Problem List: (1) Acute renal failure ICD Codes: N17.9 - Acute kidney failure, unspecified Status: Acute Plan: This patient has underlying renal impairment, creatinine 1.8-2 at baseline He has 1.2 g proteinuria, which 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 HERVE from ATN secondary to dehydration, sepsis, and DKA HD initiated 02/21; vascath was replaced on 03/06 He is oliguric, obtain bladder scan today Repeat labs tomorrow, HD if needed Continue dialysis TTS if needed Avoid IVF On Nephro via PEG with free water flushes His BP is borderline low, reduce Metoprolol 12.5 BID [employer] HD arrangements have not been made; he may have reached ESRD however we are unable to make that diagnosis at this time. In addition his mental status is not at the level required for outpatient HD. Will monitor for changes. (2) encephalopathy Plan: etiology uncertain, likely metabolic monitor mental status work up has been negative (3) DKA (diabetic ketoacidoses) ICD Codes: E13.10 - Other specified diabetes mellitus with ketoacidosis without coma Status: Resolved Plan: DKA resolved; A1c is 10 Diabetic control has been better, continue to adjust insulin with primary team. (4) Elevated troponin ICD Codes: R74.8 - Abnormal levels of other serum enzymes Plan: cardiology has evaluated suspect demand ischemia as etiology of elevated troponin levels 2D echo shows EF 25% (5) Sepsis ICD Codes: A41.9 - Sepsis, unspecified organism Status: Acute Plan: Resolving He is off antibiotics 1/2 blood cultures with staph hominis, likely contaminant HIDA scan taken, unable to visualize GB, results showing chronic cholecystitis (6) Dehydration with hypernatremia ICD Codes: E87.0 - Hyperosmolality and hypernatremia Status: Resolved Plan: Corrected, monitor for recurrence (7) anemia Plan: Normocytic anemia, may have anemia of chronic disease On epogen with dialysis Plan patient was seen and examined. Agree with above assessment and plan. His condition has not improved. Hospice may be appropriate. (Mc Quintanilla MD) Problem Qualifiers (1) Acute renal failure: Qualified Codes: N17.9 - Acute kidney failure, unspecified (2) DKA (diabetic ketoacidoses): (3) Sepsis: Qualified Codes: A41.9 - Sepsis, unspecified organism Gely Dill Mar 13, 2017 10:05 Mc Quintanilla MD Mar 13, 2017 15:03
[2017-03-13] MEDS: RESP: ALBUTEROL 2.5 MG/IPRATROPIUM 0.5 MG NEB (PRN) INH ×2 (14:42)
[2017-03-14] VITALS (9 sets, daily range): BP systolic 96–117; BP diastolic 58–63; PULSE 87–100; RESP 18–22; TEMP 97.6–98.2; O2SAT 98–100
[2017-03-14] MEDS: CHLORHEXIDINE GLUCONATE 2 % 1 PACK (2 CLOTHS) TOP SCH ×2 (04:00)
--- NOTE | 2017-03-14 08:35 | HHI.PR ---
Subjective Remarks in no acute distress. on restraints. clinically no change. Objective Vitals Vital Signs Date Time Temp Pulse Resp B/P (MAP) Pulse Ox O2 Delivery O2 Flow Rate FiO2 03/14/17 04:00 98.0 93 22 117/59 (78) 99 03/14/17 04:00 Nasal Cannula 2.00 03/14/17 00:00 Nasal Cannula 2.00 03/14/17 00:00 98.2 87 20 113/62 (79) 100 03/13/17 20:52 Nasal Cannula 1.00 03/13/17 20:00 101 03/13/17 20:00 99.2 100 21 126/60 (82) 97 03/13/17 20:00 Nasal Cannula 2.00 03/13/17 16:00 98.0 103 18 115/58 (77) 100 03/13/17 12:00 98.0 94 18 107/60 (76) 100 I/O 03/13/17 03/13/17 03/13/17 03/14/17 03/14/17 03/14/17 07:00 15:00 23:00 07:00 15:00 23:00 Intake Total 1930 ml 0 ml Output Total 100 ml 200 ml Balance -100 ml 1930 ml -200 ml Intake Oral 0 ml 0 ml Tube Feeding 1730 ml Tube Irrigant 100 ml Other 100 ml Output Urine Total 100 ml 200 ml Bladder Scan Volume Amount 3 ml # Voids 0 # Bowel Movements 1 0 2 Result Diagram: 03/11/17 0550 03/12/17 1006 Imaging Last Impressions Abdomen X-Ray 03/08/17 0000 Signed Impressions: Service Date/Time: Wednesday, March 08, 2017 18:51 - CONCLUSION: Interval advancement of nasogastric tube into the stomach. Richard Bess MD Chest X-Ray 03/06/17 0000 Signed Impressions: Service Date/Time: Monday, March 06, 2017 16:37 - CONCLUSION: 1. Good position of both left central lines. No evidence of pneumothorax. 2. Stable bilateral lower lung consolidation and right pleural effusion. Dontrell Oneil MD Soft Tissue Neck X-Ray 03/05/17 0000 Signed Impressions: Service Date/Time: February 15:18 - CONCLUSION: Limited exam. No acute abnormality. Dontrell Mcqueen Jr., MD Head CT 02/27/17 Signed Impressions: Service Date/Time: Monday, February 27, 2017 12:47 - CONCLUSION: 1. No acute intracranial abnormality is identified. There are no findings to indicate ischemia and no acute blood products are present. 2. Chronic brain changes include generalized atrophy and periventricular white matter change characteristic of chronic microvascular ischemia. 3. There is trace air within the cavernous sinus bilaterally and in the left superior ophthalmic vein likely related to IV access. Flakito Silva MD Carotid Artery Ultrasound 02/27/17 Signed Impressions: Service Date/Time: Monday, February 27, 2017 14:35 - CONCLUSION: 1. Severe noncalcified plaque in the left carotid bulb and left internal carotid artery with a possible complete occlusion of the left internal carotid artery. No Doppler signal is identified in the vessel which could indicate complete occlusion or severe high-grade stenosis. Consider carotid CTA for further evaluation. 2. There is mild to moderate noncalcified plaque in the right carotid bulb. Less than 50%% stenosis is present within the right internal carotid artery. 3. Please note that the right external carotid artery is not visualized. Flakito Silva MD Hepatobiliary Scan Nuclear Medicine 02/24/17 Signed Impressions: Service Date/Time: Friday, February 24, 2017 12:33 - CONCLUSION: 1. Lack of visualization of the gallbladder. We will have the patient return for delayed imaging. At this point acute cholecystitis versus chronic cholecystitis. Dontrell Mcqueen Jr., MD ADDENDUM: 24-hour delayed imaging shows activity within the gallbladder. This would be consistent with chronic cholecystitis. Dontrell Mcqueen Jr., MD Liver Ultrasound 02/20/17 Signed Impressions: Service Date/Time: Monday, February 20, 2017 10:51 - CONCLUSION: Gallstones and gallbladder wall thickening. There is no intrahepatic biliary duct dilatation. Rylan Wang MD FACR Renal Ultrasound 02/19/17 Signed Impressions: Service Date/Time: February 17:19 - CONCLUSION: No evidence of hydronephrosis. Indwelling Scott catheter with collapsed bladder in thickened bladder wall. Cal Tomlinson MD Objective Remarks GENERAL: in no acute distress HEENT; NG tube in place- pupils with minimal reaction to light bilaterally CARDIOVASCULAR: Regular rate and regular rhythm without murmurs, gallops, or rubs. RESPIRATORY: bilateral air entry present GASTROINTESTINAL: Abdomen soft, non-tender, nondistended. Normal, active bowel sounds MUSCULOSKELETAL: Extremities without clubbing, cyanosis, or edema. NEURO: mildly lethargic but easily arousable. Procedures Vascath 2, central line, PEG Medications and IVs Current Medications IV Flush (NS Flush) 2 ml UNSCH PRN IV FLUSH FLUSH AFTER USING IV ACCESS; Start 02/19/17 at 12:15; Stop 02/19/17 at 16:15; Status DC Sodium Chloride 1,000 ml @ 1,000 mls/hr Q1H IV Last administered on 12:17; Start 02/19/17 at 12:05; Stop 02/19/17 at 13:04; Status DC Sodium Chloride 1,000 ml @ 999 mls/hr BOLUS ONCE IV Last administered on 12:18; Start 02/19/17 at 12:15; Stop 02/19/17 at 13:15; Status DC Insulin Human Regular (NovoLIN R INJ) 10 units ONCE ONCE IV PUSH Last administered on 02/19/17 12:23; Start 02/19/17 at 12:15; Stop 02/19/17 at 12 :16; Status DC Sodium Chloride 1,000 ml @ 999 mls/hr BOLUS ONCE IV Last administered on 13:25; Start 02/19/17 at 13:00; Stop 02/19/17 at 14:00; Status DC Sodium Chloride 1,000 ml @ 250 mls/hr Q4H IV Last administered on 02/19/17 14:36; Start 02/19/17 at 13:35; Stop 02/19/17 at 16:40; Status DC Dextrose/Sodium Chloride 1,000 ml @ 200 mls/hr Q5H IV ; Start 02/19/17 at 13: 35; Stop 02/20/17 at 00:07; Status DC Insulin Human Regular 100 units/ Sodium Chloride 100 ml @ 6.5 mls/hr TITRATE IV Last administered on 02/20/17 00:30; Start 02/19/17 at 15:00; Stop 02/20 at 09:24; Status DC Sodium Bicarbonate (Sodium Bicarbonate 8.4% Inj) 100 meq UNSCH PRN IV PUSH SEE LABEL COMMENTS; Start 02/19/17 at 13:45 Sodium Bicarbonate (Sodium Bicarbonate 8.4% Inj) 50 meq UNSCH PRN IV PUSH SEE LABEL COMMENTS; Start 02/19/17 at 13:45 Sodium Phosphate 15 mmol/Sodium Chloride 105 ml @ 25 mls/hr UNSCH PRN IV SEE LABEL COMMENTS; Start 02/19/17 at 13:45 Miscellaneous Information 1 Q361D XX ; Start 02/19/17 at 13:45; Stop 02/19/17 at 16:14; Status DC Chlorhexidine Gluconate (Chlorhexidine 2% Cloth) 3 pack Taper DAILY@04 TOP ; Start 02/20/17 at 04:00; Stop 02/20/17 at 04:00; Status DC Chlorhexidine Gluconate (Chlorhexidine 2% Cloth) 3 pack UNSCH PRN TOP HYGIENIC CARE; Start 02/19/17 at 13:45; Stop 02/19/17 at 16:14; Status DC Piperacillin Sod/ Tazobactam Sod 100 ml @ 200 mls/hr ONCE ONCE IV Last administered on 02/19/17 14:36; Start 02/19/17 at 14:30; Stop 02/19/17 at 14 :59; Status DC Vancomycin HCl 1000 mg/Sodium Chloride 250 ml @ 250 mls/hr ONCE ONCE IV Last administered on 02/19/17 14:36; Start 02/19/17 at 14:30; Stop 02/19/17 at 15 :29; Status DC Sodium Chloride (NS Flush) 2 ml UNSCH PRN IV FLUSH FLUSH AFTER USING IV ACCESS ; Start 02/19/17 at 14:15 Sodium Chloride (NS Flush) 2 ml BID IV FLUSH Last administered on 03/13/17 20: 30; Start 02/19/17 at 21:00 Pantoprazole Sodium (Protonix Inj) 40 mg DAILY IV PUSH Last administered on 08:23; Start 02/20/17 at 09:00; Stop 03/01/17 at 11:25; Status DC Albuterol/ Ipratropium (Duoneb Neb) 1 ampule Q6HR NEB INH Last administered on 02/22/17 10:35; Start 02/19/17 at 16:00; Stop 02/22/17 at 13:56; Status DC Albuterol/ Ipratropium (Duoneb Neb) 1 ampule Q4HR NEB PRN INH WHEEZING; Start 02/19/17 at 14:15; Stop 02/22/17 at 13:57; Status DC Heparin Sodium (Porcine) (Heparin Inj) 5,000 units Q12H SQ Last administered on 03/08/17 17:39; Start 02/19/17 at 17:00; Status Future Hold Miscellaneous Information 1 Q361D XX ; Start 02/19/17 at 14:15 Chlorhexidine Gluconate (Chlorhexidine 2% Cloth) 3 pack Taper DAILY@04 TOP Last administered on 02/25/17 02:34; Start 02/20/17 at 04:00; Stop 02/16/18 at 03:59 Chlorhexidine Gluconate (Chlorhexidine 2% Cloth) 3 pack UNSCH PRN TOP HYGIENIC CARE; Start 02/19/17 at 14:15 Senna/Docusate Sodium (Princess-Colace) 1 tab BID PO Last administered on 08:54; Start 02/19/17 at 21:00; Stop 03/11/17 at 13:54; Status DC Magnesium Hydroxide (Milk Of Magnesia Liq) 30 ml Q12H PRN PO MILD - MODERATE CONSTIPATION; Start 02/19/17 at 14:15; Stop 03/05/17 at 12:16; Status DC Sennosides (Senokot) 17.2 mg Q12H PRN PO MODERATE - SEVERE CONSTIPATION; Start 02/19/17 at 14:15; Stop 03/11/17 at 13:54; Status DC Bisacodyl (Dulcolax Supp) 10 mg DAILY PRN RECTAL SEVERE CONSITIPATION; Start 02/19/17 at 14:15 Lactulose (Lactulose Liq) 30 ml DAILY PRN PO SEVERE CONSITIPATION; Start 02/19 at 14:15 Aspirin (Aspirin Chew) 81 mg DAILY CHEW Last administered on 02/21/17 07:46; Start 02/19/17 at 15:15; Stop 03/01/17 at 11:25; Status DC Piperacillin Sod/ Tazobactam Sod 50 ml @ 100 mls/hr Q6H IV Last administered on 02/22/17 21:10; Start 02/19/17 at 21:00; Stop 02/23/17 at 01:15; Status DC Sodium Chloride 1,000 ml @ 999 mls/hr BOLUS ONCE IV Last administered on 16:53; Start 02/19/17 at 16:15; Stop 02/19/17 at 17:15; Status DC Metoprolol Tartrate (Lopressor) 25 mg Q8HR PO Last administered on 03/10/17 21:49; Start 02/19/17 at 16:30; Stop 03/11/17 at 13:54; Status DC Sodium Chloride 1,000 ml @ 100 mls/hr Q10H IV Last administered on 02/19/17 17:22; Start 02/19/17 at 16:45; Stop 02/20/17 at 00:07; Status DC Sodium Bicarbonate (Sodium Bicarbonate 8.4% Inj) 50 meq ONCE ONCE IV PUSH Last administered on 02/19/17 16:50; Start 02/19/17 at 17:00; Stop 02/19/17 at 17:01; Status DC Sodium Chloride 1,000 ml @ 999 mls/hr BOLUS ONCE IV ; Start 02/19/17 at 17:00 ; Stop 02/19/17 at 18:00; Status DC Melatonin (Melatonin) 5 mg HS PRN PO SLEEP Last administered on 03/01/17 22: 58; Start 02/19/17 at 22:15 Potassium Chloride 100 ml @ 25 mls/hr BOLUS ONCE IV Last administered on 00:18; Start 02/20/17 at 00:15; Stop 02/20/17 at 04:14; Status DC Dextrose 1,000 ml @ 120 mls/hr Q8H20M IV Last administered on 02/20/17 08:59 ; Start 02/20/17 at 00:15; Stop 02/20/17 at 09:24; Status DC Miscellaneous Information 1 ONCE ONCE .XX ; Start 02/20/17 at 09:30; Stop at 10:06; Status DC Miscellaneous Information 1 ONCE ONCE .XX ; Start 02/20/17 at 09:30; Stop at 10:01; Status DC Insulin Detemir (Levemir Inj) 5 units Q12H SQ Last administered on 02/22/17 08:22; Start 02/20/17 at 09:30; Stop 02/27/17 at 08:32; Status DC Insulin Aspart (NovoLOG INJ) 3 units TIDAC SQ Last administered on 02/22/17 08:00; Start 02/20/17 at 12:00; Stop 03/01/17 at 11:25; Status DC Insulin Aspart (NovoLOG SUPPLEMENTAL SCALE) 1 ACHS SLIDING SCALE SQ Last administered on 02/20/17 21:31; Start 02/20/17 at 12:00; Stop 02/24/17 at 09 :01; Status DC Dextrose (D50w (Vial) Inj) 50 ml UNSCH PRN IV PUSH HYPOGLYCEMIA-SEE COMMENTS Last administered on 02/22/17 12:32; Start 02/20/17 at 09:30; Stop 02/27/17 at 08:38; Status DC Glucagon (Glucagon Inj) 1 mg UNSCH PRN OTHER HYPOGLYCEMIA-SEE COMMENTS; Start 02/20/17 at 09:30; Stop 02/27/17 at 08:38; Status DC Sodium Chloride 1,000 ml @ 60 mls/hr [id number] IV Last administered on 12:14; Start 02/20/17 at 09:30; Stop 02/22/17 at 13:47; Status DC Haloperidol Lactate (Haldol Inj) 2 mg Q4H PRN IV agitation; Start 02/20/17 at 09:45; Stop 03/01/17 at 11:39; Status DC Lorazepam (Ativan Inj) 1 mg Q6H PRN IV PUSH ANXIETY AND/OR AGITATION Last administered on 03/13/17 21:43; Start 02/21/17 at 08:00 Sodium Chloride 1,000 ml @ 0 mls/hr Q0M PRN OTHER For Prime & Rinse Back; Start 02/21/17 at 10:55 Heparin Sodium (Porcine) (Heparin Inj) 8,000 units UNSCH PRN IV FLUSH WITH DIALYSIS; Start 02/21/17 at 11:00 Sodium Chloride 1,000 ml @ 200 mls/hr Q5H PRN IV WITH DIALYSIS Last administered on 02/21/17 14:48; Start 02/21/17 at 10:55 Sodium Chloride 1,000 ml @ 0 mls/hr Q0M PRN OTHER WITH DIALYSIS; Start at 10:55 Mannitol (Mannitol Inj) 12.5 gm UNSCH PRN IV WITH DIALYSIS Last administered on 02/21/17 14:48; Start 02/21/17 at 11:00 Albumin Human 100 ml @ 60 mls/hr UNSCH PRN IV WITH DIALYSIS Last administered on 03/10/17 10:18; Start 02/21/17 at 11:00 Sodium Chloride (NS Flush) 5 ml UNSCH PRN IV FLUSH WITH DIALYSIS; Start at 11:00 Heparin Sodium (Porcine) (Heparin Inj) UNSCH PRN .XX WITH DIALYSIS Last administered on 03/10/17 10:18; Start 02/21/17 at 11:00 Gentamicin Sulfate (Gentamicin (Dialysis) Inj) 20 mg UNSCH PRN OTHER WITH DIALYSIS Last administered on 03/12/17 18:24; Start 02/21/17 at 11:00 Ondansetron HCl (Zofran Inj) 4 mg UNSCH PRN IV PUSH WITH DIALYSIS; Start 02/21 at 11:00 Acetaminophen (Tylenol) 650 mg UNSCH PRN PO for headach, pain, temp > 101F Last administered on 03/09/17 19:38; Start 02/21/17 at 11:00; Stop 03/11/17 at 13:54; Status DC Diphenhydramine HCl (Benadryl) 25 mg UNSCH PRN PO for hives/itching/ anaphylaxis Last administered on 03/05/17 21:35; Start 02/21/17 at 11:00; Stop 03/11/17 at 13:54; Status DC Nitroglycerin (Nitrostat Sl) 0.4 mg UNSCH PRN SL CHEST PAIN; Start 02/21/17 at 11:00 Clonidine (Catapres) 0.1 mg UNSCH PRN PO for BP > 180/100 X 2 readings; Start 02/21/17 at 11:00 Gelatin (Gelfoam 12 Mm/7 Mm Top) 1 foam UNSCH PRN TOP SEE LABEL COMMENTS; Start 02/21/17 at 11:00 Midazolam HCl (Versed Inj) 5 mg STK-MED ONCE .ROUTE ; Start 02/21/17 at 12:47; Stop 02/21/17 at 12:48; Status DC Flumazenil (Romazicon Inj) 0.5 mg STK-MED ONCE .ROUTE ; Start 02/21/17 at 13:42 ; Stop 02/21/17 at 13:43; Status DC Flumazenil (Romazicon Inj) 0.5 mg STK-MED ONCE .ROUTE ; Start 02/21/17 at 13:42 ; Stop 02/21/17 at 13:43; Status DC Flumazenil (Romazicon Inj) 0.5 mg STAT ONCE IV ; Start 02/21/17 at 14:00; Stop 02/21/17 at 14:01; Status DC Albuterol/ Ipratropium (Duoneb Neb) 1 ampule Q4HR NEB INH Last administered on 02/26/17 15:35; Start 02/22/17 at 16:00; Stop 02/26/17 at 15:59; Status DC Albuterol/ Ipratropium (Duoneb Neb) 1 ampule Q2HR NEB PRN INH WHEEZING Last administered on 03/13/17 14:42; Start 02/22/17 at 14:00 Dextrose 1,000 ml @ 42 mls/hr [id number] IV Last administered on 02/22/17 18:45 ; Start 02/22/17 at 18:45; Stop 02/23/17 at 11:20; Status DC Vancomycin HCl 1000 mg/Sodium Chloride 250 ml @ 250 mls/hr ONCE ONCE IV Last administered on 02/23/17 01:38; Start 02/23/17 at 01:30; Stop 02/23/17 at 02 :29; Status DC Metronidazole 100 ml @ 100 mls/hr Q8H IV Last administered on 02/27/17 05:44 ; Start 02/23/17 at 12:00; Stop 02/27/17 at 09:08; Status DC Levofloxacin/ Dextrose 50 ml @ 50 mls/hr Q24H IV Last administered on 12:05; Start 02/23/17 at 11:00; Stop 02/27/17 at 09:08; Status DC Sodium Chloride 154 meq/Dextrose 1,038.5 ml @ 20 mls/hr Q24H IV Last administered on 02/23/17 13:28; Start 02/23/17 at 12:00; Stop 02/24/17 at 00 :50; Status DC Dextrose 1,000 ml @ 42 mls/hr [id number] IV Last administered on 02/24/17 01:46 ; Start 02/24/17 at 01:00; Stop 02/24/17 at 04:39; Status DC Insulin Human Regular (NovoLIN R INJ) 10 units NOW ONCE IV PUSH Last administered on 02/24/17 05:01; Start 02/24/17 at 04:45; Stop 02/24/17 at 04 :47; Status DC Insulin Human Regular (NovoLIN R INJ) 10 units ONCE ONCE IV PUSH Last administered on 02/24/17 06:30; Start 02/24/17 at 06:15; Stop 02/24/17 at 06 :16; Status DC Dextrose (D50w (Vial) Inj) 50 ml UNSCH PRN IV PUSH HYPOGLYCEMIA-SEE COMMENTS Last administered on 03/06/17 04:39; Start 02/24/17 at 08:30 Glucagon (Glucagon Inj) 1 mg UNSCH PRN OTHER HYPOGLYCEMIA-SEE COMMENTS; Start 02/24/17 at 08:30 Insulin Aspart (NovoLOG SUPPLEMENTAL SCALE) 1 ACHS SLIDING SCALE SQ Last administered on 02/26/17 22:44; Start 02/24/17 at 12:00; Stop 02/27/17 at 08 :36; Status DC Insulin Detemir (Levemir Inj) 5 units Q12HR SQ Last administered on 02/26/17 22:44; Start 02/25/17 at 09:00; Stop 02/27/17 at 08:32; Status DC Lactobacillus Acidophilus (Lactinex) 1 tab TID PO Last administered on 08:54; Start 02/25/17 at 13:00; Stop 03/11/17 at 13:54; Status DC Potassium Chloride (KCl Powder) 20 meq ONCE ONCE PO Last administered on 02/26 14:15; Start 02/26/17 at 14:15; Stop 02/26/17 at 14:16; Status DC Insulin Detemir (Levemir Inj) 12 units DAILYAC SQ ; Start 02/27/17 at 08:30; Stop 02/27/17 at 08:40; Status DC Insulin Detemir (Levemir Inj) 10 units HS SQ ; Start 02/27/17 at 21:00; Stop 02/27/17 at 21:00; Status DC Insulin Aspart (NovoLOG SUPPLEMENTAL SCALE) 1 ACHS SLIDING SCALE SQ Last administered on 03/13/17 20:30; Start 02/27/17 at 12:00 Insulin Detemir (Levemir Inj) 8 units DAILYAC SQ Last administered on 09:10; Start 02/28/17 at 08:00; Stop 03/05/17 at 18:33; Status DC Insulin Detemir (Levemir Inj) 8 units HS SQ Last administered on 03/03/17 20: 47; Start 02/27/17 at 21:00; Stop 03/05/17 at 12:16; Status DC Levofloxacin (Levaquin) 250 mg DAILY PO Last administered on 03/02/17 09:21; Start 02/27/17 at 11:00; Stop 03/03/17 at 10:03; Status DC Metronidazole (Flagyl) 500 mg Q8HR PO Last administered on 03/05/17 05:17; Start 02/27/17 at 14:00; Stop 03/05/17 at 12:00; Status DC Sodium Chloride 1,000 ml @ 60 mls/hr [id number] IV Last administered on 03:00; Start 02/27/17 at 13:00; Stop 02/28/17 at 14:52; Status DC Norepinephrine Bitartrate 4 mg/ Sodium Chloride 250 ml @ 7.5 mls/hr TITRATE PRN IV Blood pressure management Last administered on 02/28/17 00:18; Start 02/27/17 at 13:30; Stop 03/01/17 at 14:26; Status DC Terbutaline Sulfate (Brethine Inj) 1 mg UNSCH PRN SQ For Extravasation; Start 02/27/17 at 13:30 Sodium Chloride 250 ml @ 250 mls/hr BOLUS ONCE IV Last administered on 13:20; Start 02/27/17 at 13:30; Stop 02/27/17 at 14:29; Status DC Potassium Phosphate (K-Phos) 500 mg ONCE ONCE PO ; Start 02/27/17 at 13:30; Stop 02/27/17 at 13:33; Status DC Aspirin (Aspirin Supp) 300 mg STAT ONCE RECTAL Last administered on 16:15; Start 02/27/17 at 16:00; Stop 02/27/17 at 16:03; Status DC Aspirin (Ecotrin Ec) 81 mg DAILY PO Last administered on 03/11/17 08:54; Start 02/28/17 at 09:00; Stop 03/11/17 at 13:54; Status DC Influenza Virus Vaccine (Flu (Quadrivalent) Vaccine Inj) 0.5 ml ONCE ONCE IM Last administered on 03/03/17 09:55; Start 03/03/17 at 10:00; Stop 03/03/17 at 10:01; Status DC Sodium Chloride 1,000 ml @ 30 mls/hr Q24H PRN IV if po < 50% for one liter Last administered on 03/05/17 14:38; Start 03/02/17 at 13:15; Stop 03/05/17 at 18:27; Status DC Levofloxacin (Levaquin) 250 mg Q48H PO Last administered on 03/05/17 11:50; Start 03/03/17 at 11:00; Stop 03/05/17 at 23:55; Status DC Albuterol/ Ipratropium (Duoneb Neb) 1 ampule TID NEB NEB Last administered on 03/09/17 08:39; Start 03/05/17 at 14:00; Stop 03/09/17 at 10:58; Status DC Dextrose/Sodium Chloride 1,000 ml @ 30 mls/hr Q24H IV Last administered on 19:00; Start 03/05/17 at 18:45; Stop 03/06/17 at 05:19; Status DC Insulin Detemir (Levemir Inj) 4 units DAILYAC SQ Last administered on 08:55; Start 03/06/17 at 08:00; Stop 03/11/17 at 09:46; Status DC Sodium Polystyrene Sulfonate (Kayexalate Enema) 30 gm ONCE ONCE RECTAL Last administered on 03/05/17 01:00; Start 03/05/17 at 22:45; Stop 03/05/17 at 22 :46; Status DC Furosemide (Lasix Inj) 20 mg UNSCH X1 IV ; Start 03/06/17 at 06:30; Stop at 08:00; Status DC Midazolam HCl (Versed Inj) 5 mg STK-MED ONCE .ROUTE ; Start 03/06/17 at 14:45; Stop 03/06/17 at 14:46; Status DC Midazolam HCl (Versed Inj) 2 mg NOW ONCE IV Last administered on 03/06/17 15 :00; Start 03/06/17 at 15:45; Stop 03/06/17 at 15:46; Status DC Midazolam HCl (Versed Inj) 3 mg ONCE ONCE IV ; Start 03/06/17 at 15:45; Stop 03/06/17 at 15:46; Status DC Albuterol/ Ipratropium (Duoneb Neb) 1 ampule TID NEB NEB Last administered on 03/13/17 08:20; Start 03/09/17 at 14:00; Stop 03/13/17 at 13:59; Status DC Miscellaneous Information ALL NURSING DEPARTME... UNSCH PRN .XX SEE LABEL COMMENTS; Start 03/09/17 at 16:14; Stop 03/10/17 at 16:13; Status DC Epoetin Samuel (Epogen Inj) 10,000 units UNSCH PRN IV PUSH WITH DIALYSIS Last administered on 03/12/17 18:24; Start 03/10/17 at 11:30 Insulin Detemir (Levemir Inj) 8 units DAILYAC SQ Last administered on 08:25; Start 03/12/17 at 08:00; Stop 03/13/17 at 09:01; Status DC Insulin Detemir (Levemir Inj) 8 units HS SQ Last administered on 03/13/17 20: 30; Start 03/11/17 at 21:00 Insulin Detemir (Levemir Inj) 4 units ONCE ONCE SQ Last administered on 12:23; Start 03/11/17 at 11:30; Stop 03/11/17 at 11:31; Status DC Acetaminophen (Tylenol) 650 mg UNSCH PRN G-TUBE for headach, pain, temp > 101F Last administered on 03/13/17 02:36; Start 03/11/17 at 14:00; Stop 03/13/17 at 09:00; Status DC Aspirin (Ecotrin Ec) 81 mg DAILY .XX Last administered on 03/13/17 08:23; Start 03/12/17 at 09:00 Diphenhydramine HCl (Benadryl) 25 mg UNSCH PRN G-TUBE for hives/itching/ anaphylaxis; Start 03/11/17 at 14:00 Senna/Docusate Sodium (Princess-Colace) 1 tab BID G-TUBE Last administered on 20:30; Start 03/11/17 at 21:00 Lactobacillus Acidophilus (Lactinex) 1 tab TID G-TUBE Last administered on 03/13 17:08; Start 03/11/17 at 18:00 Metoprolol Tartrate (Lopressor) 25 mg Q8HR DOBHOFF Last administered on 15:22; Start 03/11/17 at 14:00; Stop 03/12/17 at 08:53; Status DC Sennosides (Senokot) 17.2 mg Q12H PRN G-TUBE MODERATE - SEVERE CONSTIPATION; Start 03/11/17 at 14:15 Metoprolol Tartrate (Lopressor) 25 mg BID DOBHOFF Last administered on 20:32; Start 03/12/17 at 21:00 Ephedrine Sulfate (ePHEDrine/NS 25 MG/5 ML SYR) 25 mg STK-MED ONCE IV ; Start 03/09/17 at 12:00; Stop 03/12/17 at 15:01; Status DC Propofol (Diprivan 200 Mg/20 ml Inj) 200 mg STK-MED ONCE IV ; Start 03/09/17 at 12:00; Stop 03/12/17 at 15:01; Status DC Sodium Chloride (Sodium Chloride 0.9% Inj) 20 ml STK-MED ONCE IV ; Start at 12:00; Stop 03/12/17 at 15:01; Status DC Acetaminophen (Tylenol) 650 mg Q6HR PRN G-TUBE for headach, pain, temp > 101F; Start 03/13/17 at 09:15 Insulin Detemir (Levemir Inj) 10 units DAILYAC SQ ; Start 03/14/17 at 08:00 A/P Problem List: (1) Acute metabolic encephalopathy ICD Code: G93.41 - Metabolic encephalopathy (2) Altered mental status ICD Code: R41.82 - Altered mental status, unspecified Status: Acute (3) DKA (diabetic ketoacidoses) ICD Code: E13.10 - Other specified diabetes mellitus with ketoacidosis without coma Status: Resolved (4) Non-STEMI (non-ST elevated myocardial infarction) ICD Code: I21.4 - Non-ST elevation (NSTEMI) myocardial infarction Status: Acute (5) Dehydration with hypernatremia ICD Code: E87.0 - Hyperosmolality and hypernatremia Status: Resolved (6) Sepsis ICD Code: A41.9 - Sepsis, unspecified organism Status: Acute (7) UTI (urinary tract infection) ICD Code: N39.0 - Urinary tract infection, site not specified Status: Acute (8) Acute renal failure ICD Code: N17.9 - Acute kidney failure, unspecified Status: Acute (9) Hyperglycemia ICD Code: R73.9 - Hyperglycemia, unspecified Status: Acute (10) Lactic acidemia ICD Code: E87.2 - Acidosis (11) Transaminitis ICD Code: R74.0 - Nonspecific elevation of levels of transaminase and lactic acid dehydrogenase [LDH] (12) Respiratory insufficiency ICD Code: R06.89 - Other abnormalities of breathing Assessment and Plan A/P Acute encephalopathy, recurrent and multifactorial. Not improving -repeated CT with no acute abnormality. -Treat agitation with when necessary Haldol -rpt EEG without seizure. Carotid sonogram showed left carotid occlusion and 50 % stenosis on the right carotid. Patient on aspirin. Patient on statin currently on hold because of transaminitis. Holter monitor results as follows normal Sinus rhythm with an average heart rate of 86 beats per minute. There were periods of sinus tachycardia up to 124 beats per minute at 9:10pm. There were 3,693 PVCs, 51 cycles of ventricular bigeminy, 419 ventricular couplets and 14 runs of wide complex tachycardia, the longest being 3 beats with a maximum heart rate of 145 beats per minute. The 3 beat runs of wide complex tachycardia are polymorphic. There are no PACs. -Status post neurology evaluation believes this is metabolic. 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 Stable - keep on oxygen as needed to keep O2 sat >90% - continue neb treatment. - Lasix if tolerated elevated troponin Hypertension cardiomyopathy - echo with EF 25% - Aspirin - Metoprolol 25 mg every 8 hours. Unable to start MILDRED inhibitor secondary to acute kidney injury - Avoid statins due to transaminitis - evaluated by cardiology. Transaminitis chronic cholecystitis - Monitor liver enzymes Acute kidney injury superimposed on chronic kidney disease . Oliguric to anuric Severe dehydration - Baseline creatinine 1.8 to 2. Acute worsening secondary to severe dehydration , ATN and DKA - Monitor renal function closely. - Creatinine is rising with episodes of confusion likely secondary to uremia. Nephrology to manage hemodialysis Probable sepsis UTI -- one bottle of the blood cultures with staph coag. negative-likely contamination. -ID consult appreciated status post Levaquin and Flagyl diarrhea- stool negative for c-diff. Anemia thrombocytopenia from Sepsis/DIC -Resolved thrombocytopenia -hematology following. -Monitor CBC. DKA-resolved now hyperglycemic secondary to tube feeding -continue sliding scale coverage. -increased levemir ; 10 units twice a day, A1c 10. -will monitor and adjust the regimen as needed. -Hypoglycemia protocol FEN. Tube feeding via PEG PROPH: - Bilateral lower extremity SCDs. Discharge Planning patient is still on restraints. d/w the daughter at the bedside; the patient is still full code and the family are not considering hospice at this time. Problem Qualifiers (1) Altered mental status: Qualified Codes: R41.82 - Altered mental status, unspecified (2) DKA (diabetic ketoacidoses): (3) Sepsis: Qualified Codes: A41.9 - Sepsis, unspecified organism (4) UTI (urinary tract infection): (5) Acute renal failure: Qualified Codes: N17.9 - Acute kidney failure, unspecified Orion Braden MD Mar 14, 2017 08:35
[2017-03-14] MEDS: SODIUM CHLORIDE 0.9% FLUSH 10 ML FLUSH IV FLUSH SCH ×4 (09:00→21:00)
[2017-03-14] MEDS: ASPIRIN EC 81 MG TABEC SCH ×2 (10:24)
[2017-03-14] MEDS: LACTOBACILLUS ACIDOPHILUS TAB G-TUBE SCH ×6 (10:24→17:34)
[2017-03-14] MEDS: METOPROLOL TARTRATE 25 MG TAB DOBHOFF SCH ×4 (10:24→23:02)
[2017-03-14] MEDS: DOCUSATE SODIUM 50 MG/SENNA 8.6 MG TAB G-TUBE SCH ×4 (10:24→23:02)
[2017-03-14] MEDS: INSULIN ASPART SUPPLEMENTAL SCALE SQ SCH ×8 (10:24→23:02)
[2017-03-14] MEDS: INSULIN DETEMIR 100 UNITS/ML VIAL SQ SCH ×4 (10:25→23:02)
[2017-03-14 11:22] LABS: ALBUMIN 2.3 GM/DL (3.4-5.0); BICARBONATE 28.8 MEQ/L (21.0-32.0); CALCIUM 8.2 MG/DL (8.5-10.1); CREATININE 4.7 MG/DL (0.60-1.30); PHOSPHORUS 2.5 MG/DL (2.5-4.9)
--- NOTE | 2017-03-14 13:37 | HHI.NPPN ---
Subjective Renal Failure: Chronic, Acute Additional Remarks Patient remain non verbal, not in distress, with NGT feeding. Review of Systems General General Remarks unable to evaluate Objective Data Data Vital Signs Date Time Temp Pulse Resp B/P (MAP) Pulse Ox O2 Delivery O2 Flow Rate FiO2 03/14/17 10:15 98 Nasal Cannula 2.00 03/14/17 08:00 97.8 93 18 107/58 (74) 100 03/14/17 04:00 98.0 93 22 117/59 (78) 99 03/14/17 04:00 Nasal Cannula 2.00 03/14/17 00:00 Nasal Cannula 2.00 03/14/17 00:00 98.2 87 20 113/62 (79) 100 03/13/17 20:52 Nasal Cannula 1.00 03/13/17 20:00 101 03/13/17 20:00 99.2 100 21 126/60 (82) 97 03/13/17 20:00 Nasal Cannula 2.00 03/13/17 16:00 98.0 103 18 115/58 (77) 100 -: 03/11/17 0550 03/14/17 1050 Tubes & Lines: Vas-Cath Tubes & Lines Comment TLC and vascath left IJ Drip Comment None Physical Exam General Appearance: Sleeping, Malnourished Appearance Remarks Remain non verbal, not in distress. Eyes Eye Exam: Pupils Equal, Pupils Reactive Throat Throat Exam: Oral Mucosa [place] & Moist Neck Neck Exam: Neck Supple Pulmonary Resp Exam: Breath Sounds Equal, No Distress, Rhonchi, Decreased Bases Cardiology CV Exam: Regular, Normal Sinus Rhythm, Good Perfusion Gastrointestinal/Abdomen GI Exam: Soft, Non-Tender, Bowel Sounds Present Genitourinary Exam: Bladder Non-Palpable Musculoskeletal MS Exam: Joints Intact, Atrophy, Unable to Ambulate Integumentary Skin Exam: Clear, Warm, Dry, Intact Extremeties Extremities Exam: Trace Edema Neurologic Neuro Exam: Obtunded VTE Prophylaxis Device: SCDs Assessment/Plan Discussed Condition With: Daughter Assessment Summary: HERVE/Acute Renal Failure, Acute Tubular Necrosis, Diabetes Mellitus Problem List: (1) Acute renal failure ICD Codes: N17.9 - Acute kidney failure, unspecified Status: Acute Plan: This patient has underlying renal impairment, creatinine 1.8-2 at baseline He has 1.2 g proteinuria, which 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 HERVE from ATN secondary to dehydration, sepsis, and DKA HD initiated 02/21; vascath was replaced on 03/06 He is oliguric, obtain bladder scan today Repeat labs tomorrow, HD if needed Continue dialysis TTS if needed Avoid IVF On Nephro via PEG with free water flushes His BP is stable, on Metoprolol 12.5 BID Creatinine is slightly better, will hold HD for today, give gentle hydration. (2) encephalopathy Plan: etiology uncertain, likely metabolic monitor mental status work up has been negative (3) DKA (diabetic ketoacidoses) ICD Codes: E13.10 - Other specified diabetes mellitus with ketoacidosis without coma Status: Resolved Plan: DKA resolved; A1c is 10 Diabetic control has been better, continue to adjust insulin with primary team. (4) Elevated troponin ICD Codes: R74.8 - Abnormal levels of other serum enzymes Plan: cardiology has evaluated suspect demand ischemia as etiology of elevated troponin levels 2D echo shows EF 25% (5) Sepsis ICD Codes: A41.9 - Sepsis, unspecified organism Status: Acute Plan: Resolving He is off antibiotics 1/2 blood cultures with staph hominis, likely contaminant HIDA scan taken, unable to visualize GB, results showing chronic cholecystitis (6) Dehydration with hypernatremia ICD Codes: E87.0 - Hyperosmolality and hypernatremia Status: Resolved Plan: Corrected, monitor for recurrence (7) anemia Plan: Normocytic anemia, may have anemia of chronic disease On epogen with dialysis Problem Qualifiers (1) Acute renal failure: Qualified Codes: N17.9 - Acute kidney failure, unspecified (2) DKA (diabetic ketoacidoses): (3) Sepsis: Qualified Codes: A41.9 - Sepsis, unspecified organism Jocelin Villar MD Mar 14, 2017 13:37
[2017-03-14] MEDS: RESP: ALBUTEROL 2.5 MG/IPRATROPIUM 0.5 MG NEB (PRN) INH ×4 (16:23→23:55)
[2017-03-14] MEDS: LORazepam 2 MG/ML VIAL IV PUSH PRN ×4 (17:35→23:02)
[2017-03-14] MEDS: SODIUM CHLOR 0.9% 1000 ML INJ 1,000 ML IV SCH ×2 (17:37)
[2017-03-15] VITALS (12 sets, daily range): BP systolic 92–122; BP diastolic 51–63; PULSE 72–111; RESP 18–26; TEMP 97.5–98.4; O2SAT 94–100
[2017-03-15] MEDS: CHLORHEXIDINE GLUCONATE 2 % 1 PACK (2 CLOTHS) TOP SCH ×2 (04:00)
[2017-03-15] MEDS: SODIUM CHLOR 0.9% 1000 ML INJ 1,000 ML IV SCH ×6 (06:19→23:01)
[2017-03-15] MEDS: INSULIN DETEMIR 100 UNITS/ML VIAL SQ SCH ×4 (08:00→22:22)
--- NOTE | 2017-03-15 08:28 | HHI.PR ---
Subjective Remarks in no acute distress. clinically no change. daughter at the bedside. Objective Vitals Vital Signs Date Time Temp Pulse Resp B/P (MAP) Pulse Ox O2 Delivery O2 Flow Rate FiO2 03/15/17 04:00 98.4 94 20 113/63 (80) 100 03/15/17 00:00 98.2 99 21 102/57 (72) 100 03/14/17 20:00 97.8 99 20 110/58 (75) 100 03/14/17 19:36 Room Air 03/14/17 19:31 100 03/14/17 16:00 97.7 94 18 106/63 (77) 100 03/14/17 12:00 97.6 87 18 96/58 (71) 98 03/14/17 10:37 Nasal Cannula 3.00 03/14/17 10:37 93 03/14/17 10:15 98 Nasal Cannula 2.00 I/O 03/14/17 03/14/17 03/14/17 03/15/17 03/15/17 03/15/17 07:00 15:00 23:00 07:00 15:00 23:00 Intake Total 0 ml 1140 ml 1000 ml Output Total 200 ml Balance -200 ml 1140 ml 1000 ml Intake Oral 0 ml 0 ml 0 ml IV Total 1000 ml Tube Feeding 1140 ml Output Urine Total 200 ml # Voids 1 # Bowel Movements 2 2 4 Result Diagram: 03/11/17 0550 03/14/17 1050 Imaging Last Impressions Abdomen X-Ray 03/08/17 0000 Signed Impressions: Service Date/Time: Wednesday, March 08, 2017 18:51 - CONCLUSION: Interval advancement of nasogastric tube into the stomach. Richard Bess MD Chest X-Ray 03/06/17 0000 Signed Impressions: Service Date/Time: Monday, March 06, 2017 16:37 - CONCLUSION: 1. Good position of both left central lines. No evidence of pneumothorax. 2. Stable bilateral lower lung consolidation and right pleural effusion. Dontrell Oneil MD Soft Tissue Neck X-Ray 03/05/17 0000 Signed Impressions: Service Date/Time: February 15:18 - CONCLUSION: Limited exam. No acute abnormality. Dontrell Mcqueen Jr., MD Head CT 02/27/17 0000 Signed Impressions: Service Date/Time: Monday, February 27, 2017 12:47 - CONCLUSION: 1. No acute intracranial abnormality is identified. There are no findings to indicate ischemia and no acute blood products are present. 2. Chronic brain changes include generalized atrophy and periventricular white matter change characteristic of chronic microvascular ischemia. 3. There is trace air within the cavernous sinus bilaterally and in the left superior ophthalmic vein likely related to IV access. Flakito Silva MD Carotid Artery Ultrasound 02/27/17 0000 Signed Impressions: Service Date/Time: Monday, February 27, 2017 14:35 - CONCLUSION: 1. Severe noncalcified plaque in the left carotid bulb and left internal carotid artery with a possible complete occlusion of the left internal carotid artery. No Doppler signal is identified in the vessel which could indicate complete occlusion or severe high-grade stenosis. Consider carotid CTA for further evaluation. 2. There is mild to moderate noncalcified plaque in the right carotid bulb. Less than 50%% stenosis is present within the right internal carotid artery. 3. Please note that the right external carotid artery is not visualized. Flakito Silva MD Hepatobiliary Scan Nuclear Medicine 02/24/17 0000 Signed Impressions: Service Date/Time: Friday, February 24, 2017 12:33 - CONCLUSION: 1. Lack of visualization of the gallbladder. We will have the patient return for delayed imaging. At this point acute cholecystitis versus chronic cholecystitis. Dontrell Mcqueen Jr., MD ADDENDUM: 24-hour delayed imaging shows activity within the gallbladder. This would be consistent with chronic cholecystitis. Dontrell Mcqueen Jr., MD Liver Ultrasound 02/20/17 0000 Signed Impressions: Service Date/Time: Monday, February 20, 2017 10:51 - CONCLUSION: Gallstones and gallbladder wall thickening. There is no intrahepatic biliary duct dilatation. Rylan Wang MD FACR Renal Ultrasound 02/19/17 0000 Signed Impressions: Service Date/Time: February 17:19 - CONCLUSION: No evidence of hydronephrosis. Indwelling Scott catheter with collapsed bladder in thickened bladder wall. Cal Tomlinson MD Objective Remarks GENERAL: in no acute distress HEENT; NG tube in place- pupils with minimal reaction to light bilaterally CARDIOVASCULAR: Regular rate and regular rhythm without murmurs, gallops, or rubs. RESPIRATORY: bilateral air entry present GASTROINTESTINAL: Abdomen soft, non-tender, nondistended. Normal, active bowel sounds MUSCULOSKELETAL: Extremities without clubbing, cyanosis, or edema. NEURO: mildly lethargic but easily arousable. Procedures Vascath 2, central line, PEG Medications and IVs Current Medications IV Flush (NS Flush) 2 ml UNSCH PRN IV FLUSH FLUSH AFTER USING IV ACCESS; Start 02/19/17 at 12:15; Stop 02/19/17 at 16:15; Status DC Sodium Chloride 1,000 ml @ 1,000 mls/hr Q1H IV Last administered on 12:17; Start 02/19/17 at 12:05; Stop 02/19/17 at 13:04; Status DC Sodium Chloride 1,000 ml @ 999 mls/hr BOLUS ONCE IV Last administered on 12:18; Start 02/19/17 at 12:15; Stop 02/19/17 at 13:15; Status DC Insulin Human Regular (NovoLIN R INJ) 10 units ONCE ONCE IV PUSH Last administered on 02/19/17 12:23; Start 02/19/17 at 12:15; Stop 02/19/17 at 12 :16; Status DC Sodium Chloride 1,000 ml @ 999 mls/hr BOLUS ONCE IV Last administered on 13:25; Start 02/19/17 at 13:00; Stop 02/19/17 at 14:00; Status DC Sodium Chloride 1,000 ml @ 250 mls/hr Q4H IV Last administered on 02/19/17 14:36; Start 02/19/17 at 13:35; Stop 02/19/17 at 16:40; Status DC Dextrose/Sodium Chloride 1,000 ml @ 200 mls/hr Q5H IV ; Start 02/19/17 at 13: 35; Stop 02/20/17 at 00:07; Status DC Insulin Human Regular 100 units/ Sodium Chloride 100 ml @ 6.5 mls/hr TITRATE IV Last administered on 02/20/17 00:30; Start 02/19/17 at 15:00; Stop 02/20 at 09:24; Status DC Sodium Bicarbonate (Sodium Bicarbonate 8.4% Inj) 100 meq UNSCH PRN IV PUSH SEE LABEL COMMENTS; Start 02/19/17 at 13:45 Sodium Bicarbonate (Sodium Bicarbonate 8.4% Inj) 50 meq UNSCH PRN IV PUSH SEE LABEL COMMENTS; Start 02/19/17 at 13:45 Sodium Phosphate 15 mmol/Sodium Chloride 105 ml @ 25 mls/hr UNSCH PRN IV SEE LABEL COMMENTS; Start 02/19/17 at 13:45 Miscellaneous Information 1 Q361D XX ; Start 02/19/17 at 13:45; Stop 02/19/17 at 16:14; Status DC Chlorhexidine Gluconate (Chlorhexidine 2% Cloth) 3 pack Taper DAILY@04 TOP ; Start 02/20/17 at 04:00; Stop 02/20/17 at 04:00; Status DC Chlorhexidine Gluconate (Chlorhexidine 2% Cloth) 3 pack UNSCH PRN TOP HYGIENIC CARE; Start 02/19/17 at 13:45; Stop 02/19/17 at 16:14; Status DC Piperacillin Sod/ Tazobactam Sod 100 ml @ 200 mls/hr ONCE ONCE IV Last administered on 02/19/17 14:36; Start 02/19/17 at 14:30; Stop 02/19/17 at 14 :59; Status DC Vancomycin HCl 1000 mg/Sodium Chloride 250 ml @ 250 mls/hr ONCE ONCE IV Last administered on 02/19/17 14:36; Start 02/19/17 at 14:30; Stop 02/19/17 at 15 :29; Status DC Sodium Chloride (NS Flush) 2 ml UNSCH PRN IV FLUSH FLUSH AFTER USING IV ACCESS ; Start 02/19/17 at 14:15 Sodium Chloride (NS Flush) 2 ml BID IV FLUSH Last administered on 03/14/17 09: 00; Start 02/19/17 at 21:00 Pantoprazole Sodium (Protonix Inj) 40 mg DAILY IV PUSH Last administered on 08:23; Start 02/20/17 at 09:00; Stop 03/01/17 at 11:25; Status DC Albuterol/ Ipratropium (Duoneb Neb) 1 ampule Q6HR NEB INH Last administered on 02/22/17 10:35; Start 02/19/17 at 16:00; Stop 02/22/17 at 13:56; Status DC Albuterol/ Ipratropium (Duoneb Neb) 1 ampule Q4HR NEB PRN INH WHEEZING; Start 02/19/17 at 14:15; Stop 02/22/17 at 13:57; Status DC Heparin Sodium (Porcine) (Heparin Inj) 5,000 units Q12H SQ Last administered on 03/08/17 17:39; Start 02/19/17 at 17:00; Status Future Hold Miscellaneous Information 1 Q361D XX ; Start 02/19/17 at 14:15 Chlorhexidine Gluconate (Chlorhexidine 2% Cloth) 3 pack Taper DAILY@04 TOP Last administered on 02/25/17 02:34; Start 02/20/17 at 04:00; Stop 02/16/18 at 03:59 Chlorhexidine Gluconate (Chlorhexidine 2% Cloth) 3 pack UNSCH PRN TOP HYGIENIC CARE; Start 02/19/17 at 14:15 Senna/Docusate Sodium (Princess-Colace) 1 tab BID PO Last administered on 08:54; Start 02/19/17 at 21:00; Stop 03/11/17 at 13:54; Status DC Magnesium Hydroxide (Milk Of Magnesia Liq) 30 ml Q12H PRN PO MILD - MODERATE CONSTIPATION; Start 02/19/17 at 14:15; Stop 03/05/17 at 12:16; Status DC Sennosides (Senokot) 17.2 mg Q12H PRN PO MODERATE - SEVERE CONSTIPATION; Start 02/19/17 at 14:15; Stop 03/11/17 at 13:54; Status DC Bisacodyl (Dulcolax Supp) 10 mg DAILY PRN RECTAL SEVERE CONSITIPATION; Start 02/19/17 at 14:15 Lactulose (Lactulose Liq) 30 ml DAILY PRN PO SEVERE CONSITIPATION; Start 02/19 at 14:15 Aspirin (Aspirin Chew) 81 mg DAILY CHEW Last administered on 02/21/17 07:46; Start 02/19/17 at 15:15; Stop 03/01/17 at 11:25; Status DC Piperacillin Sod/ Tazobactam Sod 50 ml @ 100 mls/hr Q6H IV Last administered on 02/22/17 21:10; Start 02/19/17 at 21:00; Stop 02/23/17 at 01:15; Status DC Sodium Chloride 1,000 ml @ 999 mls/hr BOLUS ONCE IV Last administered on 16:53; Start 02/19/17 at 16:15; Stop 02/19/17 at 17:15; Status DC Metoprolol Tartrate (Lopressor) 25 mg Q8HR PO Last administered on 03/10/17 21:49; Start 02/19/17 at 16:30; Stop 03/11/17 at 13:54; Status DC Sodium Chloride 1,000 ml @ 100 mls/hr Q10H IV Last administered on 02/19/17 17:22; Start 02/19/17 at 16:45; Stop 02/20/17 at 00:07; Status DC Sodium Bicarbonate (Sodium Bicarbonate 8.4% Inj) 50 meq ONCE ONCE IV PUSH Last administered on 02/19/17 16:50; Start 02/19/17 at 17:00; Stop 02/19/17 at 17:01; Status DC Sodium Chloride 1,000 ml @ 999 mls/hr BOLUS ONCE IV ; Start 02/19/17 at 17:00 ; Stop 02/19/17 at 18:00; Status DC Melatonin (Melatonin) 5 mg HS PRN PO SLEEP Last administered on 03/01/17 22: 58; Start 02/19/17 at 22:15 Potassium Chloride 100 ml @ 25 mls/hr BOLUS ONCE IV Last administered on 00:18; Start 02/20/17 at 00:15; Stop 02/20/17 at 04:14; Status DC Dextrose 1,000 ml @ 120 mls/hr Q8H20M IV Last administered on 02/20/17 08:59 ; Start 02/20/17 at 00:15; Stop 02/20/17 at 09:24; Status DC Miscellaneous Information 1 ONCE ONCE .XX ; Start 02/20/17 at 09:30; Stop at 10:06; Status DC Miscellaneous Information 1 ONCE ONCE .XX ; Start 02/20/17 at 09:30; Stop at 10:01; Status DC Insulin Detemir (Levemir Inj) 5 units Q12H SQ Last administered on 02/22/17 08:22; Start 02/20/17 at 09:30; Stop 02/27/17 at 08:32; Status DC Insulin Aspart (NovoLOG INJ) 3 units TIDAC SQ Last administered on 02/22/17 08:00; Start 02/20/17 at 12:00; Stop 03/01/17 at 11:25; Status DC Insulin Aspart (NovoLOG SUPPLEMENTAL SCALE) 1 ACHS SLIDING SCALE SQ Last administered on 02/20/17 21:31; Start 02/20/17 at 12:00; Stop 02/24/17 at 09 :01; Status DC Dextrose (D50w (Vial) Inj) 50 ml UNSCH PRN IV PUSH HYPOGLYCEMIA-SEE COMMENTS Last administered on 02/22/17 12:32; Start 02/20/17 at 09:30; Stop 02/27/17 at 08:38; Status DC Glucagon (Glucagon Inj) 1 mg UNSCH PRN OTHER HYPOGLYCEMIA-SEE COMMENTS; Start 02/20/17 at 09:30; Stop 02/27/17 at 08:38; Status DC Sodium Chloride 1,000 ml @ 60 mls/hr [id number] IV Last administered on 12:14; Start 02/20/17 at 09:30; Stop 02/22/17 at 13:47; Status DC Haloperidol Lactate (Haldol Inj) 2 mg Q4H PRN IV agitation; Start 02/20/17 at 09:45; Stop 03/01/17 at 11:39; Status DC Lorazepam (Ativan Inj) 1 mg Q6H PRN IV PUSH ANXIETY AND/OR AGITATION Last administered on 03/14/17 23:02; Start 02/21/17 at 08:00; Status Future Hold Sodium Chloride 1,000 ml @ 0 mls/hr Q0M PRN OTHER For Prime & Rinse Back; Start 02/21/17 at 10:55 Heparin Sodium (Porcine) (Heparin Inj) 8,000 units UNSCH PRN IV FLUSH WITH DIALYSIS; Start 02/21/17 at 11:00 Sodium Chloride 1,000 ml @ 200 mls/hr Q5H PRN IV WITH DIALYSIS Last administered on 02/21/17 14:48; Start 02/21/17 at 10:55 Sodium Chloride 1,000 ml @ 0 mls/hr Q0M PRN OTHER WITH DIALYSIS; Start at 10:55 Mannitol (Mannitol Inj) 12.5 gm UNSCH PRN IV WITH DIALYSIS Last administered on 02/21/17 14:48; Start 02/21/17 at 11:00 Albumin Human 100 ml @ 60 mls/hr UNSCH PRN IV WITH DIALYSIS Last administered on 03/10/17 10:18; Start 02/21/17 at 11:00 Sodium Chloride (NS Flush) 5 ml UNSCH PRN IV FLUSH WITH DIALYSIS; Start at 11:00 Heparin Sodium (Porcine) (Heparin Inj) UNSCH PRN .XX WITH DIALYSIS Last administered on 03/10/17 10:18; Start 02/21/17 at 11:00 Gentamicin Sulfate (Gentamicin (Dialysis) Inj) 20 mg UNSCH PRN OTHER WITH DIALYSIS Last administered on 03/12/17 18:24; Start 02/21/17 at 11:00 Ondansetron HCl (Zofran Inj) 4 mg UNSCH PRN IV PUSH WITH DIALYSIS; Start 02/21 at 11:00 Acetaminophen (Tylenol) 650 mg UNSCH PRN PO for headach, pain, temp > 101F Last administered on 03/09/17 19:38; Start 02/21/17 at 11:00; Stop 03/11/17 at 13:54; Status DC Diphenhydramine HCl (Benadryl) 25 mg UNSCH PRN PO for hives/itching/ anaphylaxis Last administered on 03/05/17 21:35; Start 02/21/17 at 11:00; Stop 03/11/17 at 13:54; Status DC Nitroglycerin (Nitrostat Sl) 0.4 mg UNSCH PRN SL CHEST PAIN; Start 02/21/17 at 11:00 Clonidine (Catapres) 0.1 mg UNSCH PRN PO for BP > 180/100 X 2 readings; Start 02/21/17 at 11:00 Gelatin (Gelfoam 12 Mm/7 Mm Top) 1 foam UNSCH PRN TOP SEE LABEL COMMENTS; Start 02/21/17 at 11:00 Midazolam HCl (Versed Inj) 5 mg STK-MED ONCE .ROUTE ; Start 02/21/17 at 12:47; Stop 02/21/17 at 12:48; Status DC Flumazenil (Romazicon Inj) 0.5 mg STK-MED ONCE .ROUTE ; Start 02/21/17 at 13:42 ; Stop 02/21/17 at 13:43; Status DC Flumazenil (Romazicon Inj) 0.5 mg STK-MED ONCE .ROUTE ; Start 02/21/17 at 13:42 ; Stop 02/21/17 at 13:43; Status DC Flumazenil (Romazicon Inj) 0.5 mg STAT ONCE IV ; Start 02/21/17 at 14:00; Stop 02/21/17 at 14:01; Status DC Albuterol/ Ipratropium (Duoneb Neb) 1 ampule Q4HR NEB INH Last administered on 02/26/17 15:35; Start 02/22/17 at 16:00; Stop 02/26/17 at 15:59; Status DC Albuterol/ Ipratropium (Duoneb Neb) 1 ampule Q2HR NEB PRN INH WHEEZING Last administered on 03/14/17 23:55; Start 02/22/17 at 14:00 Dextrose 1,000 ml @ 42 mls/hr [id number] IV Last administered on 02/22/17 18:45 ; Start 02/22/17 at 18:45; Stop 02/23/17 at 11:20; Status DC Vancomycin HCl 1000 mg/Sodium Chloride 250 ml @ 250 mls/hr ONCE ONCE IV Last administered on 02/23/17 01:38; Start 02/23/17 at 01:30; Stop 02/23/17 at 02 :29; Status DC Metronidazole 100 ml @ 100 mls/hr Q8H IV Last administered on 02/27/17 05:44 ; Start 02/23/17 at 12:00; Stop 02/27/17 at 09:08; Status DC Levofloxacin/ Dextrose 50 ml @ 50 mls/hr Q24H IV Last administered on 12:05; Start 02/23/17 at 11:00; Stop 02/27/17 at 09:08; Status DC Sodium Chloride 154 meq/Dextrose 1,038.5 ml @ 20 mls/hr Q24H IV Last administered on 02/23/17 13:28; Start 02/23/17 at 12:00; Stop 02/24/17 at 00 :50; Status DC Dextrose 1,000 ml @ 42 mls/hr [id number] IV Last administered on 02/24/17 01:46 ; Start 02/24/17 at 01:00; Stop 02/24/17 at 04:39; Status DC Insulin Human Regular (NovoLIN R INJ) 10 units NOW ONCE IV PUSH Last administered on 02/24/17 05:01; Start 02/24/17 at 04:45; Stop 02/24/17 at 04 :47; Status DC Insulin Human Regular (NovoLIN R INJ) 10 units ONCE ONCE IV PUSH Last administered on 02/24/17 06:30; Start 02/24/17 at 06:15; Stop 02/24/17 at 06 :16; Status DC Dextrose (D50w (Vial) Inj) 50 ml UNSCH PRN IV PUSH HYPOGLYCEMIA-SEE COMMENTS Last administered on 03/06/17 04:39; Start 02/24/17 at 08:30 Glucagon (Glucagon Inj) 1 mg UNSCH PRN OTHER HYPOGLYCEMIA-SEE COMMENTS; Start 02/24/17 at 08:30 Insulin Aspart (NovoLOG SUPPLEMENTAL SCALE) 1 ACHS SLIDING SCALE SQ Last administered on 02/26/17 22:44; Start 02/24/17 at 12:00; Stop 02/27/17 at 08 :36; Status DC Insulin Detemir (Levemir Inj) 5 units Q12HR SQ Last administered on 02/26/17 22:44; Start 02/25/17 at 09:00; Stop 02/27/17 at 08:32; Status DC Lactobacillus Acidophilus (Lactinex) 1 tab TID PO Last administered on 08:54; Start 02/25/17 at 13:00; Stop 03/11/17 at 13:54; Status DC Potassium Chloride (KCl Powder) 20 meq ONCE ONCE PO Last administered on 02/26 14:15; Start 02/26/17 at 14:15; Stop 02/26/17 at 14:16; Status DC Insulin Detemir (Levemir Inj) 12 units DAILYAC SQ ; Start 02/27/17 at 08:30; Stop 02/27/17 at 08:40; Status DC Insulin Detemir (Levemir Inj) 10 units HS SQ ; Start 02/27/17 at 21:00; Stop 02/27/17 at 21:00; Status DC Insulin Aspart (NovoLOG SUPPLEMENTAL SCALE) 1 ACHS SLIDING SCALE SQ Last administered on 03/14/17 23:02; Start 02/27/17 at 12:00 Insulin Detemir (Levemir Inj) 8 units DAILYAC SQ Last administered on 09:10; Start 02/28/17 at 08:00; Stop 03/05/17 at 18:33; Status DC Insulin Detemir (Levemir Inj) 8 units HS SQ Last administered on 03/03/17 20: 47; Start 02/27/17 at 21:00; Stop 03/05/17 at 12:16; Status DC Levofloxacin (Levaquin) 250 mg DAILY PO Last administered on 03/02/17 09:21; Start 02/27/17 at 11:00; Stop 03/03/17 at 10:03; Status DC Metronidazole (Flagyl) 500 mg Q8HR PO Last administered on 03/05/17 05:17; Start 02/27/17 at 14:00; Stop 03/05/17 at 12:00; Status DC Sodium Chloride 1,000 ml @ 60 mls/hr [id number] IV Last administered on 03:00; Start 02/27/17 at 13:00; Stop 02/28/17 at 14:52; Status DC Norepinephrine Bitartrate 4 mg/ Sodium Chloride 250 ml @ 7.5 mls/hr TITRATE PRN IV Blood pressure management Last administered on 02/28/17 00:18; Start 02/27/17 at 13:30; Stop 03/01/17 at 14:26; Status DC Terbutaline Sulfate (Brethine Inj) 1 mg UNSCH PRN SQ For Extravasation; Start 02/27/17 at 13:30 Sodium Chloride 250 ml @ 250 mls/hr BOLUS ONCE IV Last administered on 13:20; Start 02/27/17 at 13:30; Stop 02/27/17 at 14:29; Status DC Potassium Phosphate (K-Phos) 500 mg ONCE ONCE PO ; Start 02/27/17 at 13:30; Stop 02/27/17 at 13:33; Status DC Aspirin (Aspirin Supp) 300 mg STAT ONCE RECTAL Last administered on 16:15; Start 02/27/17 at 16:00; Stop 02/27/17 at 16:03; Status DC Aspirin (Ecotrin Ec) 81 mg DAILY PO Last administered on 03/11/17 08:54; Start 02/28/17 at 09:00; Stop 03/11/17 at 13:54; Status DC Influenza Virus Vaccine (Flu (Quadrivalent) Vaccine Inj) 0.5 ml ONCE ONCE IM Last administered on 03/03/17 09:55; Start 03/03/17 at 10:00; Stop 03/03/17 at 10:01; Status DC Sodium Chloride 1,000 ml @ 30 mls/hr Q24H PRN IV if po < 50% for one liter Last administered on 03/05/17 14:38; Start 03/02/17 at 13:15; Stop 03/05/17 at 18:27; Status DC Levofloxacin (Levaquin) 250 mg Q48H PO Last administered on 03/05/17 11:50; Start 03/03/17 at 11:00; Stop 03/05/17 at 23:55; Status DC Albuterol/ Ipratropium (Duoneb Neb) 1 ampule TID NEB NEB Last administered on 03/09/17 08:39; Start 03/05/17 at 14:00; Stop 03/09/17 at 10:58; Status DC Dextrose/Sodium Chloride 1,000 ml @ 30 mls/hr Q24H IV Last administered on 19:00; Start 03/05/17 at 18:45; Stop 03/06/17 at 05:19; Status DC Insulin Detemir (Levemir Inj) 4 units DAILYAC SQ Last administered on 08:55; Start 03/06/17 at 08:00; Stop 03/11/17 at 09:46; Status DC Sodium Polystyrene Sulfonate (Kayexalate Enema) 30 gm ONCE ONCE RECTAL Last administered on 03/05/17 01:00; Start 03/05/17 at 22:45; Stop 03/05/17 at 22 :46; Status DC Furosemide (Lasix Inj) 20 mg UNSCH X1 IV ; Start 03/06/17 at 06:30; Stop at 08:00; Status DC Midazolam HCl (Versed Inj) 5 mg STK-MED ONCE .ROUTE ; Start 03/06/17 at 14:45; Stop 03/06/17 at 14:46; Status DC Midazolam HCl (Versed Inj) 2 mg NOW ONCE IV Last administered on 03/06/17 15 :00; Start 03/06/17 at 15:45; Stop 03/06/17 at 15:46; Status DC Midazolam HCl (Versed Inj) 3 mg ONCE ONCE IV ; Start 03/06/17 at 15:45; Stop 03/06/17 at 15:46; Status DC Albuterol/ Ipratropium (Duoneb Neb) 1 ampule TID NEB NEB Last administered on 03/13/17 08:20; Start 03/09/17 at 14:00; Stop 03/13/17 at 13:59; Status DC Miscellaneous Information ALL NURSING DEPARTME... UNSCH PRN .XX SEE LABEL COMMENTS; Start 03/09/17 at 16:14; Stop 03/10/17 at 16:13; Status DC Epoetin Samuel (Epogen Inj) 10,000 units UNSCH PRN IV PUSH WITH DIALYSIS Last administered on 03/12/17 18:24; Start 03/10/17 at 11:30 Insulin Detemir (Levemir Inj) 8 units DAILYAC SQ Last administered on 08:25; Start 03/12/17 at 08:00; Stop 03/13/17 at 09:01; Status DC Insulin Detemir (Levemir Inj) 8 units HS SQ Last administered on 03/14/17 23: 02; Start 03/11/17 at 21:00 Insulin Detemir (Levemir Inj) 4 units ONCE ONCE SQ Last administered on 12:23; Start 03/11/17 at 11:30; Stop 03/11/17 at 11:31; Status DC Acetaminophen (Tylenol) 650 mg UNSCH PRN G-TUBE for headach, pain, temp > 101F Last administered on 03/13/17 02:36; Start 03/11/17 at 14:00; Stop 03/13/17 at 09:00; Status DC Aspirin (Ecotrin Ec) 81 mg DAILY .XX Last administered on 03/14/17 10:24; Start 03/12/17 at 09:00 Diphenhydramine HCl (Benadryl) 25 mg UNSCH PRN G-TUBE for hives/itching/ anaphylaxis; Start 03/11/17 at 14:00 Senna/Docusate Sodium (Princess-Colace) 1 tab BID G-TUBE Last administered on 23:02; Start 03/11/17 at 21:00 Lactobacillus Acidophilus (Lactinex) 1 tab TID G-TUBE Last administered on 03/14 17:34; Start 03/11/17 at 18:00 Metoprolol Tartrate (Lopressor) 25 mg Q8HR DOBHOFF Last administered on 15:22; Start 03/11/17 at 14:00; Stop 03/12/17 at 08:53; Status DC Sennosides (Senokot) 17.2 mg Q12H PRN G-TUBE MODERATE - SEVERE CONSTIPATION; Start 03/11/17 at 14:15 Metoprolol Tartrate (Lopressor) 25 mg BID DOBHOFF Last administered on 23:02; Start 03/12/17 at 21:00 Ephedrine Sulfate (ePHEDrine/NS 25 MG/5 ML SYR) 25 mg STK-MED ONCE IV ; Start 03/09/17 at 12:00; Stop 03/12/17 at 15:01; Status DC Propofol (Diprivan 200 Mg/20 ml Inj) 200 mg STK-MED ONCE IV ; Start 03/09/17 at 12:00; Stop 03/12/17 at 15:01; Status DC Sodium Chloride (Sodium Chloride 0.9% Inj) 20 ml STK-MED ONCE IV ; Start at 12:00; Stop 03/12/17 at 15:01; Status DC Acetaminophen (Tylenol) 650 mg Q6HR PRN G-TUBE for headach, pain, temp > 101F; Start 03/13/17 at 09:15 Insulin Detemir (Levemir Inj) 10 units DAILYAC SQ Last administered on 10:25; Start 03/14/17 at 08:00 Sodium Chloride 1,000 ml @ 70 mls/hr [id number] IV Last administered on 06:19; Start 03/14/17 at 13:45 A/P Problem List: (1) Acute metabolic encephalopathy ICD Code: G93.41 - Metabolic encephalopathy (2) Altered mental status ICD Code: R41.82 - Altered mental status, unspecified Status: Acute (3) DKA (diabetic ketoacidoses) ICD Code: E13.10 - Other specified diabetes mellitus with ketoacidosis without coma Status: Resolved (4) Non-STEMI (non-ST elevated myocardial infarction) ICD Code: I21.4 - Non-ST elevation (NSTEMI) myocardial infarction Status: Acute (5) Dehydration with hypernatremia ICD Code: E87.0 - Hyperosmolality and hypernatremia Status: Resolved (6) Sepsis ICD Code: A41.9 - Sepsis, unspecified organism Status: Acute (7) UTI (urinary tract infection) ICD Code: N39.0 - Urinary tract infection, site not specified Status: Acute (8) Acute renal failure ICD Code: N17.9 - Acute kidney failure, unspecified Status: Acute (9) Hyperglycemia ICD Code: R73.9 - Hyperglycemia, unspecified Status: Acute (10) Lactic acidemia ICD Code: E87.2 - Acidosis (11) Transaminitis ICD Code: R74.0 - Nonspecific elevation of levels of transaminase and lactic acid dehydrogenase [LDH] (12) Respiratory insufficiency ICD Code: R06.89 - Other abnormalities of breathing Assessment and Plan A/P Acute encephalopathy, recurrent and multifactorial. Not improving -repeated CT with no acute abnormality. -Treat agitation with when necessary Haldol -rpt EEG without seizure. Carotid sonogram showed left carotid occlusion and 50 % stenosis on the right carotid. Patient on aspirin. Patient on statin currently on hold because of transaminitis. Holter monitor results as follows normal Sinus rhythm with an average heart rate of 86 beats per minute. There were periods of sinus tachycardia up to 124 beats per minute at 9:10pm. There were 3,693 PVCs, 51 cycles of ventricular bigeminy, 419 ventricular couplets and 14 runs of wide complex tachycardia, the longest being 3 beats with a maximum heart rate of 145 beats per minute. The 3 beat runs of wide complex tachycardia are polymorphic. There are no PACs. -Status post neurology evaluation believes this is metabolic. 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 Stable - keep on oxygen as needed to keep O2 sat >90% - continue neb treatment. - Lasix if tolerated elevated troponin Hypertension cardiomyopathy - echo with EF 25% - Aspirin - Metoprolol 25 mg every 8 hours. Unable to start MILDRED inhibitor secondary to acute kidney injury - Avoid statins due to transaminitis - evaluated by cardiology. Transaminitis chronic cholecystitis - Monitor liver enzymes Acute kidney injury superimposed on chronic kidney disease . Oliguric to anuric - Baseline creatinine 1.8 to 2. Acute worsening secondary to severe dehydration , ATN and DKA -started on gentle IV hydration. - Monitor renal function closely. - HD per nephrology. Probable sepsis UTI -- one bottle of the blood cultures with staph coag. negative-likely contamination. -ID consult appreciated status post Levaquin and Flagyl diarrhea- stool negative for c-diff. Anemia thrombocytopenia from Sepsis/DIC -Resolved thrombocytopenia -hematology following. -Monitor CBC. DKA-resolved now hyperglycemic secondary to tube feeding -continue sliding scale coverage. -continue levemir ; 10 units twice a day, A1c 10. -will monitor and adjust the regimen as needed. -Hypoglycemia protocol FEN. Tube feeding via PEG PROPH: - Bilateral lower extremity SCDs. Discharge Planning patient is still on restraints. d/w the daughter at the bedside; the patient is still full code and the family are not considering hospice at this time. Problem Qualifiers (1) Altered mental status: Qualified Codes: R41.82 - Altered mental status, unspecified (2) DKA (diabetic ketoacidoses): (3) Sepsis: Qualified Codes: A41.9 - Sepsis, unspecified organism (4) UTI (urinary tract infection): (5) Acute renal failure: Qualified Codes: N17.9 - Acute kidney failure, unspecified Orion Braden MD Mar 15, 2017 08:27
--- NOTE | 2017-03-15 09:18 | HHI.PR ---
Addendum To [facility] Progress Not Reason for addendum: Additonal documentation (Halicat was called after the patient was found hypoxic with a pulse-ox of 60-70's. CXR, ABG and EKG were ordered- patient was placed on non-rebreather mask. case was d/w - patient will be transferred to ICU under critical care service.) Orion Braden MD Mar 15, 2017 09:18
[2017-03-15] MEDS ORDERED: LIDOCAINE HCL 1% 50 ML VIAL ONE ×2 (09:39)
--- NOTE | 2017-03-15 09:45 | RADRPT ---
EXAM DATE/TIME: 03/15/2017 09:27 [facility] COMPARISON: CHEST SINGLE AP, March 06, 2017, 16:37. INDICATIONS : Shortness of breath. MEDICAL HISTORY : Hypertension. Cardiovascular disease. Congestive heart failure. SURGICAL HISTORY : None. ENCOUNTER: Initial ACUITY: 1 day PAIN SCORE: Non-responsive. LOCATION: Bilateral chest FINDINGS: A single view of the chest demonstrates a left IJ Vas-Cath in good position. There is a large right-s ided pleural effusion. Mild pulmonary vascular congestion. The cardiomediastinal contours are unrema rkable. Osseous structures are intact. CONCLUSION: Vas-Cath in good position. NG tube has been removed. Large right pleural effusion persists Pradeep Hubbard MD on March 15, 2017 at 9:42 Board Certified Radiologist. This report was verified electronically.
[2017-03-15 10:40] LABS: BILIRUBIN, URINE NEG (NEG); BLOOD, URINE MOD (NEG); GLUCOSE,URINE 300 mg/dL (NEG); KETONE, URINE NEG (NEG); MUCUS URINE FEW /lpf (OCC); NITRITE,URINE NEG (NEG); PH, URINE 8.5 (5.0-8.5); TRANSITIONAL EPI CELLS, URINE 1 /hpf; URINE COLOR YELLOW (YELLW/STRAW); URINE LEUKOCYTE ESTERASE NEG (NEG)
[2017-03-15] MEDS: METOPROLOL TARTRATE 25 MG TAB DOBHOFF SCH ×4 (10:41→21:00)
[2017-03-15] MEDS: LACTOBACILLUS ACIDOPHILUS TAB G-TUBE SCH ×6 (10:41→18:00)
[2017-03-15] MEDS: ASPIRIN EC 81 MG TABEC SCH ×2 (10:42)
[2017-03-15] MEDS: DOCUSATE SODIUM 50 MG/SENNA 8.6 MG TAB G-TUBE SCH ×4 (10:43→22:07)
[2017-03-15] MEDS: SODIUM CHLORIDE 0.9% FLUSH 10 ML FLUSH IV FLUSH SCH ×4 (10:43→21:51)
--- NOTE | 2017-03-15 10:53 | RADRPT ---
EXAM DATE/TIME: 03/15/2017 10:24 [facility] COMPARISON: No previous studies available for comparison. INDICATIONS : Post thoracentesis. MEDICAL HISTORY : Hypertension. Cardiovascular disease. Congestive heart failure. SURGICAL HISTORY : None. ENCOUNTER: Subsequent ACUITY: 1 day PAIN SCORE: Non-responsive. LOCATION: Bilateral chest FINDINGS: A single view of the chest demonstrates the lungs to be symmetrically aerated without evidence of mas s, or infiltrate. Right pleural effusion is considerably smaller today. Left IJ vas catheter in stabl e position The cardiomediastinal contours are unremarkable. Osseous structures are intact. CONCLUSION: Status post right thoracentesis without pneumothorax. Pleural effusion is considerably smaller. Pradeep Hubbard MD on March 15, 2017 at 10:50 Board Certified Radiologist. This report was verified electronically.
[2017-03-15] MEDS ORDERED: HALOPERIDOL LACTATE 5 MG/ML AMP IV PRN ×2 (11:00)
--- NOTE | 2017-03-15 11:02 | HHI.CCPN ---
Subjective Remarks/Hospital Course 77-year-old male with past medical history significant for type 2 diabetes on insulin, hypertension, dyslipidemia, questionable developmental delay who was brought to the emergency room after being found down in his apartment. Down time is unknown, was last seen normal on Thursday. GCS of 12-13 as per EMS, with very poor hygiene. EMS checked blood sugar and was 560. Patient was tachypneic in the ER. Clinically appeared very dehydrated, and was found to be in acute renal failure (baseline creat 1.8 to 2). BUN 93 creatinine 5.3. Patient was given 3 L normal saline boluses. Other abnormal labs included hemoglobin of 10.6, platelet 97, sodium 147 and a potassium of 5.5. Glucose was 592 AST was 261 and AST 351 and troponin was 1.88. Head CT was negative. Patient's beta hydroxybutyrate was elevated and anion gap was also elevated. Patient was given 10 units of IV insulin and was started on DKA protocol. Also given vancomycin and Zosyn for possible sepsis/UTI. I evaluated the patient in the ED. He is tachypneic intermittently. Oral mucosa is very dry and he has a garbled speech. Clinically very dehydrated. Additional fluid boluses ordered. His lactic acid came back at 4.4. Daughter is at the bedside she claims that patient was seen normally on Thursday. Patient will be admitted to ICU with broad-spectrum antibiotics, insulin infusion per DKA protocol, and aggressive fluid resuscitation. Nephrology and cardiology consults placed for acute renal failure and troponin elevation/non- ST elevation UT. EKG showed poor R-wave progression and inferolateral T inversions. Patient was given aspirin. If troponin is also elevated and will start on IV heparin SUBJ 02/20: Oriented to person. Dehydration clinically improving. Creatinine remains elevated at 4.89, BUN improved to 84. Anion gap has closed but hydroxybutyrate normalized. Urine output noted mL since admission and after Scott placed, that is approximately 16 hours. 02/27: Patient had been transferred to hospitalist service on 02/21 and was on the floor. He was initiated on hemodialysis. Today toward the end of dialysis patient was noted to be more lethargic which was an acute change in his neurologic status. Dr. Cedeño evaluated patient and there was a question of a right facial droop. A stroke alert was called and critical care consult was requested for mental status. Head CT was negative for any bleed. Patient was noted to have borderline blood pressures during hemodialysis. He was transferred to the ICU following CAT scan where I evaluated him immediately following his arrival. At that time he was very lethargic/encephalopathic, 2 pros however moved both lower extremities as well as upper extremities with painful stimuli. He was having episodes of tachypnea intermittently. He was nonverbal and not following commands. A stat EEG was ordered as well. Patient was hypotensive following arrival with systolic blood pressure in the 70s for which she was started on Levophed and was given 250 cc normal saline bolus. Neurology consult was requested as part of stroke alert. History was obtained by reviewing records, discussion with rapid response and stroke team as well as Dr. Tamayo. 02/28: Patient is drowsy with easily arousable. He follows commands. Moves all 4 extremities. Was hypotensive yesterday requiring Levophed however currently is off pressors. RECONSULT NOTE 03/15: Reconsulted for respiratory distress and hypoxia. 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 He also has significant neurologic impairment which is baseline for the patient. He was NPO with PEG tube for dysphagia. Reportedly per nursing, his family fed him mashed potatoes last night. In addition, he has been receiving IVF at 70cc/hr for hypovolemia over the last 24h. He had worsening shortness of breath this morning for which a rapid response was called. I evaluated the patient at bedside during the rapid response. He was in distress and tachypneic on NRB with spo2 92%. Stat CXR demonstrated large right pleural effusion, small left pleural effusion. bedside critical care lung ultrasound confirmed those findings. Patient was transferred emergently to ICU. I performed emergent thoracentesis and drained 1.4L off of the right thorax. Patient had improved respiratory distress. will obtain stat CBC, BMP, Mg, Phos, Lactate. will have nephrology evaluate him for possible IHD today and stop his fluids. Objective Vital Signs Date Time Temp Pulse Resp B/P (MAP) Pulse Ox O2 Delivery O2 Flow Rate FiO2 03/15/17 04:00 98.4 94 20 113/63 (80) 100 03/14/17 19:36 Room Air 03/14/17 10:37 3.00 03/11/17 20:30 21 Intake and Output 03/15/17 03/15/17 03/16/17 08:00 16:00 00:00 Intake Total 1000 ml Balance 1000 ml Result Diagram: 03/11/17 0550 03/14/17 1050 Other Results Laboratory Tests Test 03/15/17 09:06 Blood Gas Puncture Site LT RADIAL Blood Gas Patient Temperature 98.6 Blood Gas HCO3 30 mmol/L (22-26) Blood Gas Base Excess 6.3 mmol/L (-2-2) Blood Gas Oxygen Saturation 98 % (90-100) Arterial Blood pH 7.47 (7.380-7.420) Arterial Blood Partial Pressure CO2 42 mmHg (38-42) Arterial Blood Partial Pressure O2 253 mmHg (61-120) Arterial Blood Oxygen Content 12.4 Vol % (12.0-20.0) Arterial Blood Carboxyhemoglobin 2.1 % (0-4) Arterial Blood Methemoglobin 0.6 % (0-2) Blood Gas Hemoglobin 8.6 G/DL (12.0-16.0) Oxygen Delivery Device Non-Rebreathing Mask Blood Gas Liter Flow 15 L/M Blood Gas Inspired Oxygen 100 % Imaging Chest x-ray no acute disease CT head cortical atrophy no acute findings Objective Remarks GENERAL: 77-year-old disheveled male who is laying in bed, delirious. SKIN: Skin is warm/dry. HEAD: Atraumatic. Normocephalic. EYES: Pupils equal and round. No scleral icterus. No injection or drainage. ENT: No nasal bleeding or discharge. Oral mucosa is very dry NECK: Trachea midline. No JVD. CARDIOVASCULAR: bradycardic rate, regular rhythm. RESPIRATORY: tachypneic in distress. on NRB. spo2 92%. decreased BS on right compared with left. GASTROINTESTINAL: Abdomen soft, non-tender, nondistended. PEG tube in place which appears clean and dry. MUSCULOSKELETAL: No obvious deformities. No clubbing. No cyanosis. No edema. NEUROLOGICAL: Encephalopathic/drowsy, easily arousable, nonverbal. Agitated. does not follow commands. moves all extremities. Procedures Vascath 2, central line, PEG A/P Assessment and Plan Assessment: 77yM with cardiomyopathy EF 20-25% and acute on chronic renal failure who presents with acute hypoxic respiratory failure which is recurrent. Clinically improving after thoracentesis to right thorax with removal of 1.4L serous fluid. Continue to wean o2. will obtain labs. aspiration pneumonitis is certainly in the differential, but will hold off on abx since patient clinically appears to be slightly improved, and this may be sterile aspiration as opposed to a clinical pneumonia. Will need nephrology to evaluate today in regards to possible HD for volume removal. stop mivf. Overall, poor prognosis and multiple palliative care discussions recommend Hospice, but family resistant to this and want full and aggressive care. Critically ill today with acute change in condition. NEURO: Encephalopathy Agitated Delirium - Minimize sedation. - restart haldol 2.5mg iv q4h prn for agitation. -Most likely metabolic. Head CT negative for bleed. EEG with no evidence of seizure activity. Patient has been evaluated by neurology. Started on aspirin. RESP: Acute hypoxic Respiratory Failure Large right pleural effusion Possible Aspiration pneumonitis Pulmonary Edema - DuoNeb every 6 hours when necessary, - wean o2 for goal spo2 > 90% - s/p emergent right thoracentesis 03/15 with 1.4L fluid removed, fluid studies pending. - aggressive pulmonary toilet. CV: NSTEMI during this admission History of Hypertension -d/c mivf. -Dr. Quintanilla from cardiology has evaluated patient previously. - Aspirin 81 mg daily. - Avoid statins due to transaminitis GI: Acute protein calorie malnutrition - severe - restart TF - strict NPO from above. - speech following. : Acute on chronic kidney disease requiring renal replacement therapy Volume overload -Strict intake output, monitor and replete electrolites, follow BUN/creatinine - Nephrology consulted Dr. Quintanilla seeing. Patient on hemodialysis for clearance - may need IHD today. will leave to Nephrology to decide. - d/c ivf. ID: Possible Aspiration pneumonitis - porter culture - hold off on starting abx unless other objective data to suggest infected. afebrile. f/u cbc, lactate. - may be sterile aspiration at this point, and resp distress is clearly multifactorial including effusion and volume overload. HEME: Anemia Mild thrombocytopenia -Monitor CBC, CMP -B12 normal, iron studies indicate anemia of chronic disease ENDO: Diabetes mellitus DKA-resolved - Continue sliding scale insulin, Levemir PROPH: - Bilateral lower extremity SCDs. Heparin 5000 units sq q12. Monitor platelet count closely - no indication for GI prophylaxis at this time. LINES: - left IJ vascath. PIV. condom cath. This patient remains critically ill with one or more organ systems which are or may become a threat to life. I have spent in excess of 47 minutes discontinuously in the care and management of this patient. This time is exclusive of procedures, and includes, but is not limited to, evaluation of the patient, review of the medical record, discussions with family, consultants, nursing staff, or respiratory therapy, and documentation in the medical record. Brenton Olivia MD Mar 15, 2017 11:02
--- NOTE | 2017-03-15 11:07 | PD.PROCEDR ---
Procedure Note Procedure Therapeutic Thoracentesis Procedure Note Diagnosis: Congestive heart failure Indications: Acute hypoxic respiratory failure in part secondary to large right pleural effusion Consent: Emergent Anesthesia: 1% lidocaine locally Description of the Procedure: The patient was placed in the supine position. The arm was abducted above the head and secured. The right lateral chest was prepped and draped sterilely to include the axilla and nipple. 1% Lidocaine was infiltrated subcutaneously and into the tissues down to the periosteum of the rib. The largest pocket of fluid was identified using ultrasound. A small incision was made using a #11 blade. At the mid-axillary line, a 12g needle and angiocath were advanced under negative pressure aspiration superior to the underlying rib until fluid was obtained. The catheter was advanced over the needle easily and without resistance. The catheter was connected to a Vacutainer and fluid was removed. At the conclusion of the procedure, the catheter was removed and a dressing was applied. There were no immediate complications noted. There was minimal EBL. The patient tolerated the procedure well. Findings: 1.4 L serous-appearing fluid was removed. Patient's tachypnea and respiratory distress improved. Ultrasound guidance was used to identify the largest pocket of fluid. A Chest x-ray has been ordered. I personally performed the procedure. Brenton Olivia MD Mar 15, 2017 11:07
[2017-03-15] MEDS: INSULIN ASPART SUPPLEMENTAL SCALE SQ SCH ×6 (12:00→22:22)
[2017-03-15 12:26] LABS: HEMATOCRIT 29.9 % (39.0-51.0); HEMOGLOBIN 9.8 GM/DL (13.0-17.0); MEAN CELL VOLUME 94.4 FL (80.0-100.0); MEAN CORPUSCULAR HEMOGLOBIN 30.9 PG (27.0-34.0); MEAN CORPUSCULAR HGB CONC 32.8 % (32.0-36.0); MEAN PLATELET VOLUME 9.5 FL (7.0-11.0); PLATELET COUNT 158 TH/MM3 (150-450); RED BLOOD COUNT 3.17 MIL/MM3 (4.50-5.90); WHITE BLOOD COUNT 4.7 TH/MM3 (4.0-11.0)
[2017-03-15 12:50] LABS: ALBUMIN, PLEURAL FLUID 0.9 G/DL; TOTAL PROTEIN,PLEURAL FLUID 1.8 GM/DL
[2017-03-15 12:57] LABS: PLEURAL FLUID WBC 10 /MM3 (0-10)
[2017-03-15 12:58] LABS: PLEURAL FLUID LYMPHS 75 %; PLEURAL FLUID POLYS (SEGS) 25 %; PLEURAL FLUID RBC 435 /MM3 (0-0)
[2017-03-15 13:07] LABS: CALCIUM 8.7 MG/DL (8.5-10.1); CREATININE 5.2 MG/DL (0.60-1.30); MAGNESIUM 2.2 MG/DL (1.5-2.5); PHOSPHORUS 2.8 MG/DL (2.5-4.9)
--- NOTE | 2017-03-15 13:44 | HHI.NPPN ---
Subjective Renal Failure: Chronic, Acute Additional Remarks Patient remain non verbal, and transferred to [facility] due to resp. failure. Review of Systems General General Remarks unable to evaluate Objective Data Data 03/15/17 03/16/17 19:00 07:00 Output Total 1400 ml Balance -1400 ml Drainage Total 1400 ml Vital Signs Date Time Temp Pulse Resp B/P (MAP) Pulse Ox O2 Delivery O2 Flow Rate FiO2 03/15/17 12:00 97.7 89 20 122/61 (81) 98 03/15/17 12:00 89 03/15/17 10:00 97.5 72 24 118/59 (78) 96 03/15/17 10:00 96 Partial Non-Rebreather 10.00 03/15/17 10:00 75 03/15/17 04:00 98.4 94 20 113/63 (80) 100 03/15/17 00:00 98.2 99 21 102/57 (72) 100 03/14/17 20:00 97.8 99 20 110/58 (75) 100 03/14/17 19:36 Room Air 03/14/17 19:31 100 03/14/17 16:00 97.7 94 18 106/63 (77) 100 -: 03/15/17 1210 03/15/17 1210 Microbiology 03/15/17 Aerobic Blood Culture, Received Pending 03/15/17 Anaerobic Blood Culture, Received Pending 03/15/17 Aerobic Blood Culture, Received Pending 03/15/17 Anaerobic Blood Culture, Received Pending 03/15/17 Gram Stain, Received Pending 03/15/17 Body Fluid Culture, Received Pending Tubes & Lines: Vas-Cath Tubes & Lines Comment TLC and vascath left IJ Drip Comment None Physical Exam General Appearance: Sleeping, Malnourished Appearance Remarks Remain non verbal, not in distress. Eyes Eye Exam: Pupils Equal, Pupils Reactive Throat Throat Exam: Oral Mucosa [place] & Moist Neck Neck Exam: Neck Supple Pulmonary Resp Exam: Breath Sounds Equal, No Distress, Rhonchi, Decreased Bases Cardiology CV Exam: Regular, Normal Sinus Rhythm, Good Perfusion Gastrointestinal/Abdomen GI Exam: Soft, Non-Tender, Bowel Sounds Present Genitourinary Exam: Bladder Non-Palpable Musculoskeletal MS Exam: Joints Intact, Atrophy, Unable to Ambulate Integumentary Skin Exam: Clear, Warm, Dry, Intact Extremeties Extremities Exam: Trace Edema Neurologic Neuro Exam: Obtunded VTE Prophylaxis Device: SCDs Assessment/Plan Discussed Condition With: Daughter Assessment Summary: HERVE/Acute Renal Failure, Acute Tubular Necrosis, Diabetes Mellitus Problem List: (1) Acute renal failure ICD Codes: N17.9 - Acute kidney failure, unspecified Status: Acute Plan: This patient has underlying renal impairment, creatinine 1.8-2 at baseline He has 1.2 g proteinuria, which 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 HERVE from ATN secondary to dehydration, sepsis, and DKA HD initiated 02/21; vascath was replaced on 03/06 He is oliguric, obtain bladder scan today Repeat labs tomorrow, HD if needed Continue dialysis TTS if needed Avoid IVF On Nephro via PEG with free water flushes His BP is stable, on Metoprolol 12.5 BID Patient has Thoracentesis done and 1400 ml removed. Creatinine increase again, will need HD in AM. Dr. Quintanilla will follow in AM. (2) encephalopathy Plan: etiology uncertain, likely metabolic monitor mental status work up has been negative (3) DKA (diabetic ketoacidoses) ICD Codes: E13.10 - Other specified diabetes mellitus with ketoacidosis without coma Status: Resolved Plan: DKA resolved; A1c is 10 Diabetic control has been better, continue to adjust insulin with primary team. (4) Elevated troponin ICD Codes: R74.8 - Abnormal levels of other serum enzymes Plan: cardiology has evaluated suspect demand ischemia as etiology of elevated troponin levels 2D echo shows EF 25% (5) Sepsis ICD Codes: A41.9 - Sepsis, unspecified organism Status: Acute Plan: Resolving He is off antibiotics 1/2 blood cultures with staph hominis, likely contaminant HIDA scan taken, unable to visualize GB, results showing chronic cholecystitis (6) Dehydration with hypernatremia ICD Codes: E87.0 - Hyperosmolality and hypernatremia Status: Resolved Plan: Corrected, monitor for recurrence (7) anemia Plan: Normocytic anemia, may have anemia of chronic disease On epogen with dialysis Problem Qualifiers (1) Acute renal failure: Qualified Codes: N17.9 - Acute kidney failure, unspecified (2) DKA (diabetic ketoacidoses): (3) Sepsis: Qualified Codes: A41.9 - Sepsis, unspecified organism Jocelin Villar MD Mar 15, 2017 13:44
[2017-03-15] MEDS: RESP: ALBUTEROL 2.5 MG/IPRATROPIUM 0.5 MG NEB (PRN) INH ×2 (16:21)
[2017-03-15] MEDS ORDERED: ETOMIDATE 40 MG/20 ML VIAL ONE ×2 (17:10)
[2017-03-15] MEDS ORDERED: MIDAZOLAM HCL 5 MG/ML VIAL (1 ML) ONE ×4 (17:11→17:23)
[2017-03-15] MEDS ORDERED: ROCURONIUM INJ 50 MG/5 ML VIAL ONE ×4 (17:11→17:21)
--- NOTE | 2017-03-15 17:32 | PD.PROCEDR ---
Procedure Note Procedure Procedure After the risks and benefits were discussed the following procedure was performed: INTUBATION: The patient was put in optimal position for the procedure. Rapid sequence intubation was initiated by me using 20 milligrams of etomidate IV and 5 milligrams of Versed IV and 50 mg Rocuronium IV, followed by additional 50 mg IV. DL with Mac 4 blade Grade 1 view single attempt. The patient was intubated with a 8.0 cuffed endotracheal tube. Tube placement was confirmed by visualization of the tube and balloon passing through the cords, capnometry and subsequent chest x-ray. Breath sounds were equal and well aerated bilaterally postintubation. No breath sounds over stomach. Patient tolerated procedure well. Savi Fraga MD Mar 15, 2017 17:32
[2017-03-15] MEDS ORDERED: PROPOFOL 1000 MG/100 ML INJ 100 ML IV PRN ×2 (17:45)
--- NOTE | 2017-03-15 17:47 | RADRPT ---
EXAM DATE/TIME: 03/15/2017 17:36 [facility] COMPARISON: CHEST SINGLE AP, March 15, 2017, 10:24. INDICATIONS : Post intubation. MEDICAL HISTORY : Hypertension. Cardiovascular disease. Congestive heart failure. SURGICAL HISTORY : None. ENCOUNTER: Subsequent ACUITY: 1 day PAIN SCORE: Non-responsive. LOCATION: Bilateral chest FINDINGS: Bilateral consolidation is increased from the previous study in the lower lobes. Endotracheal tube in satisfactory position. Left jugular line tip overlies the SVC. EKG leads overlie the chest. Osseous structures are intact. CONCLUSION: Worsening appearance of the chest with bilateral infiltrates noted. Jovanny Reynoso MD on March 15, 2017 at 17:44 Board Certified Radiologist. This report was verified electronically.
[2017-03-15] MEDS ORDERED: NOREPINEPHRINE-DEXTROSE DRIP 250 ML IV ONE ×2 (21:11)
[2017-03-15] MEDS: fentaNYL DRIP 250 ML IV PRN ×2 (21:30)
[2017-03-15] MEDS ORDERED: VANCOMYCIN INJ 1,000 MG in SODIUM CHLOR 0.9% 250 ML INJ 250 ML IV ONE ×4 (21:45)
[2017-03-15] MEDS ORDERED: TERBUTALINE INJ 1 MG/ML AMP SQ PRN ×2 (21:45)
[2017-03-15] MEDS ORDERED: Vancomycin Consult Pharmacy 1 EA OTHER SCH ×2 (21:45)
[2017-03-15] MEDS: CHLORHEXIDINE 0.12% (ORAL KIT) 15 ML CUP MT SCH ×2 (21:48)
[2017-03-15] MEDS: AZITHROMYCIN INJ 500 MG in SODIUM CHLOR 0.9% 250 ML INJ 250 ML IV SCH ×4 (22:08)
[2017-03-15] MEDS: PIPERACIL-TAZO 2.25 GM PREMIX 50 ML IV SCH ×2 (22:15)
[2017-03-15] MEDS ORDERED: SODIUM CHLOR 0.9% 1000 ML INJ 2,000 ML IV ONE ×2 (22:15)
[2017-03-15] MEDS ORDERED: VANCOMYCIN INJ 2,000 MG in SODIUM CHLORID 0.9% 500 ML INJ 500 ML IV ONE ×4 (23:00)
[2017-03-15] MEDS: NOREPINEPHRINE-DEXTROSE DRIP 250 ML IV PRN ×2 (23:02)
[2017-03-16] VITALS (19 sets, daily range): BP systolic 86–110; BP diastolic 51–59; PULSE 86–100; RESP 18–19; TEMP 97.7–98.7; O2SAT 96–100
[2017-03-16] MEDS ORDERED: ALBUMIN 5% INJ 500 ML IV ONE ×2 (02:15)
[2017-03-16] MEDS: CHLORHEXIDINE GLUCONATE 2 % 1 PACK (2 CLOTHS) TOP SCH ×2 (02:27)
[2017-03-16] MEDS: PIPERACIL-TAZO 2.25 GM PREMIX 50 ML IV SCH ×8 (03:41→22:45)
[2017-03-16 04:19] LABS: BICARBONATE 25.1 MEQ/L (21.0-32.0); CALCIUM 7.8 MG/DL (8.5-10.1); CREATININE 5.07 MG/DL (0.60-1.30)
[2017-03-16 04:21] LABS: LACTIC ACID SEPSIS PROTOCOL 3.5 mmol/L (0.4-2.0)
--- NOTE | 2017-03-16 04:30 | PD.PROCEDR ---
Procedure Note Procedure Centerline placement A time-out was completed verifying correct patient, procedure, site, positioning , and special equipment if applicable. The patient was placed in a dependent position appropriate for central line placement based on the vein to be cannulated. The patients right groin was prepped and draped in sterile fashion. 1% Lidocaine was used to anesthetize the surrounding skin area. A triple lumen 9-Trinid[place] Cordis catheter was introduced into the the common femoral vein using the Seldinger technique and under ultrasound guidance. The catheter was threaded smoothly over the guide wire and appropriate blood return was obtained. Each lumen of the catheter was evacuated of air and flushed with sterile saline. The catheter was then sutured in place to the skin and a sterile dressing applied. Perfusion to the extremity distal to the point of catheter insertion was checked and found to be adequate. Estimated Blood Loss: 1ml The patient tolerated the procedure well and there were no complications. Aries Kee MD Mar 16, 2017 04:30
[2017-03-16] MEDS ORDERED: SODIUM CHLOR 0.9% 1000 ML INJ 2,000 ML IV ONE ×2 (05:00)
[2017-03-16] MEDS: INSULIN DETEMIR 100 UNITS/ML VIAL SQ SCH ×4 (08:43→21:04)
[2017-03-16] MEDS: CHLORHEXIDINE 0.12% (ORAL KIT) 15 ML CUP MT SCH ×4 (08:43→20:32)
[2017-03-16] MEDS: METOPROLOL TARTRATE 25 MG TAB DOBHOFF SCH ×4 (08:44→19:45)
[2017-03-16] MEDS: ASPIRIN EC 81 MG TABEC SCH ×2 (08:44)
[2017-03-16] MEDS: LACTOBACILLUS ACIDOPHILUS TAB G-TUBE SCH ×6 (08:44→17:34)
[2017-03-16] MEDS: DOCUSATE SODIUM 50 MG/SENNA 8.6 MG TAB G-TUBE SCH ×4 (08:44→19:45)
[2017-03-16] MEDS: SODIUM CHLORIDE 0.9% FLUSH 10 ML FLUSH IV FLUSH SCH ×4 (08:45→21:05)
[2017-03-16] MEDS: INSULIN ASPART SUPPLEMENTAL SCALE SQ SCH ×8 (09:26→21:05)
--- NOTE | 2017-03-16 10:22 | HHI.NPPN ---
Subjective Renal Failure: Chronic, Acute Interval History He was intubated for hypoxia and respiratory failure. On Levephed and fentanyl. On 60% Fi02 with evidence of fluid overload. (Gely Dill) Review of Systems General General Remarks unable to evaluate (Gely Dill) Objective Data Data Vital Signs Date Time Temp Pulse Resp B/P (MAP) Pulse Ox O2 Delivery O2 Flow Rate FiO2 03/16/17 09:17 96 60 03/16/17 06:00 89 03/16/17 05:23 100 60 03/16/17 04:00 60 03/16/17 04:00 98.0 91 18 93/52 (66) 100 03/16/17 04:00 91 03/16/17 02:00 100 03/16/17 01:17 94 101/53 03/16/17 01:02 94 101/59 03/16/17 00:19 96 82/52 03/16/17 00:11 100 60 03/16/17 00:00 70 03/16/17 00:00 86 03/16/17 00:00 98.4 96 18 86/56 (66) 100 03/15/17 23:51 100 87/52 03/15/17 23:02 101 86/53 03/15/17 22:00 103 03/15/17 20:34 100 70 03/15/17 20:00 70 03/15/17 20:00 97 03/15/17 20:00 98.2 98 18 92/51 (65) 100 03/15/17 18:00 103 03/15/17 17:39 100 100 03/15/17 16:21 94 Nasal Cannula 3.00 03/15/17 16:00 97.8 102 26 108/63 (78) 96 03/15/17 16:00 111 03/15/17 14:00 90 03/15/17 12:00 97.7 89 20 122/61 (81) 98 03/15/17 12:00 89 (Gely Dill) -: 03/15/17 1210 03/16/17 0342 Microbiology 03/15/17 Aerobic Blood Culture, Received Pending 03/15/17 Anaerobic Blood Culture, Received Pending 03/15/17 Aerobic Blood Culture, Received Pending 03/15/17 Anaerobic Blood Culture, Received Pending 03/15/17 Gram Stain - Final, Resulted 03/15/17 Body Fluid Culture, Resulted Pending 03/15/17 Gram Stain - Final, Resulted 03/15/17 Sputum Culture, Resulted Pending 03/15/17 Gram Stain - Final, Resulted 03/15/17 Sputum Culture, Resulted Pending 03/15/17 Legionella Antigen - Final, Complete PRESUMPTIVE NEGATIVE FOR LEGIONELLA P... 03/15/17 Streptococcus pneumoniae Antigen (M - Final, Complete PRESUMPTIVE NEGATIVE FOR STREPTOCOCCU... 03/15/17 Urine Culture, Received Pending 03/15/17 Acid Fast Stain, Received Pending 03/15/17 Mycobacterial Culture, Received Pending Imaging Last 72 hours Impressions Chest X-Ray 03/15/17 0000 Signed Impressions: Service Date/Time: Wednesday, March 15, 2017 17:36 - CONCLUSION: Worsening appearance of the chest with bilateral infiltrates noted. Jovanny Reynoso MD Chest X-Ray 03/15/17 0000 Signed Impressions: Service Date/Time: Wednesday, March 15, 2017 10:24 - CONCLUSION: Status post right thoracentesis without pneumothorax. Pleural effusion is considerably smaller. Pradeep Hubbard MD Chest X-Ray 03/15/17 0000 Signed Impressions: Service Date/Time: Wednesday, March 15, 2017 09:27 - CONCLUSION: Vas-Cath in good position. NG tube has been removed. Large right pleural effusion persists Pradeep Hubbard MD Tubes & Lines: Vas-Cath Tubes & Lines Comment TLC right femoral; vascath left IJ; rectal bag; condom catheter Drip Comment fentanyl and levophed (Gely Dill) Physical Exam General Appearance: Sleeping, Malnourished Appearance Remarks Disheveled, intubated, unresponsive. (Gely Dill) Eyes Eye Exam: Pupils Equal, Pupils Reactive (Gely Dill) Throat Throat Exam: Oral Mucosa [place] & Moist (Gely DillP) Neck Neck Exam: Neck Supple (Gely Dill [employer]) Pulmonary Resp Exam: Breath Sounds Equal, No Distress, Decreased Bases, Diminished Breath Sounds Resp Remarks vented, rales lower lobes (Gely Dill) Cardiology CV Exam: Regular, Normal Sinus Rhythm, Good Perfusion (Gely Dill) Gastrointestinal/Abdomen GI Exam: Soft, Non-Tender, Bowel Sounds Present, Positive Bowel Movement (Gely Dill) Genitourinary Exam: Bladder Non-Palpable (Gely Dill) Musculoskeletal MS Exam: Joints Intact, Atrophy, Unable to Ambulate (Gely Dill) Integumentary Skin Exam: Clear, Warm, Dry, Intact (Gely Dill) Extremeties Extremities Exam: Trace Edema (Gely Dill) Neurologic Neuro Exam: Unresponsive, Sedated (Gely Dill) VTE Prophylaxis Device: SCDs (Gely Dill) Assessment/Plan Assessment Summary: HERVE/Acute Renal Failure, Acute Tubular Necrosis, Fluid/ Volume Overload, Diabetes Mellitus Problem List: (1) Acute renal failure ICD Codes: N17.9 - Acute kidney failure, unspecified Status: Acute Plan: This patient has underlying renal impairment, creatinine 1.8-2 at baseline He has 1.2 g proteinuria, which 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 HERVE from [facility] secondary to dehydration, sepsis, and DKA HD initiated 02/21; vascath was replaced on 03/06 He has been oliguric Last dialysis was (03/12), Thursday was held Has evidence of fluid overload, HD today and monitor Repeat renal panel on Thursday, HD if needed On Nephro via PEG with free water flushes He is requiring pressor support Avoid nephrotoxic agents (2) encephalopathy Plan: etiology uncertain, likely metabolic now he is intubated on sedation consider palliative reevaluation to rediscuss goals of care, currently DNR (3) DKA (diabetic ketoacidoses) ICD Codes: E13.10 - Other specified diabetes mellitus with ketoacidosis without coma Status: Resolved Plan: DKA resolved; A1c is 10 Diabetic control has been better, continue to adjust insulin with primary team. (4) Elevated troponin ICD Codes: R74.8 - Abnormal levels of other serum enzymes Plan: cardiology has evaluated suspect demand ischemia as etiology of elevated troponin levels 2D echo shows EF 25% (5) cardiomyopathy, EF 25% Plan: Off IVF s/p 1.4 L right thoracentesis over the weekend Needs fluid removal with HD, monitor fluid status (6) Sepsis ICD Codes: A41.9 - Sepsis, unspecified organism Status: Acute Plan: Resolving Repeat cultures have been obtained On Zithromax and Zosyn, may have aspirated (7) Dehydration with hypernatremia ICD Codes: E87.0 - Hyperosmolality and hypernatremia Status: Resolved Plan: Corrected, monitor for recurrence (8) anemia Plan: Normocytic anemia, may have anemia of chronic disease On epogen with dialysis (Gely Dill) Plan patient was seen and examined. Agree with above assessment and plan. If Continued vancomycin is required, it can be given MWF after dialysis. (1 gram IV ). Dialysis today. Demonstrates fluid overload. Prognosis is very poor. Suggest palliative care and hospice. (Mc Quintanilla MD) Problem Qualifiers (1) Acute renal failure: Qualified Codes: N17.9 - Acute kidney failure, unspecified (2) DKA (diabetic ketoacidoses): (3) Sepsis: Qualified Codes: A41.9 - Sepsis, unspecified organism Gely Dill Mar 16, 2017 10:22 Mc Quintanilla MD Mar 16, 2017 12:54
[2017-03-16] MEDS: NOREPINEPHRINE-DEXTROSE DRIP 250 ML IV PRN ×4 (12:31→21:35)
[2017-03-16] MEDS ORDERED: VANCOMYCIN 1,000 MG/NS 250 ML IV SCH ×4 (12:45)
--- NOTE | 2017-03-16 16:34 | HHI.CCPN ---
Subjective Remarks/Hospital Course 77-year-old male with past medical history significant for type 2 diabetes on insulin, hypertension, dyslipidemia, questionable developmental delay who was brought to the emergency room after being found down in his apartment. Down time is unknown, was last seen normal on Thursday. GCS of 12-13 as per EMS, with very poor hygiene. EMS checked blood sugar and was 560. Patient was tachypneic in the ER. Clinically appeared very dehydrated, and was found to be in acute renal failure (baseline creat 1.8 to 2). BUN 93 creatinine 5.3. Patient was given 3 L normal saline boluses. Other abnormal labs included hemoglobin of 10.6, platelet 97, sodium 147 and a potassium of 5.5. Glucose was 592 AST was 261 and AST 351 and troponin was 1.88. Head CT was negative. Patient's beta hydroxybutyrate was elevated and anion gap was also elevated. Patient was given 10 units of IV insulin and was started on DKA protocol. Also given vancomycin and Zosyn for possible sepsis/UTI. I evaluated the patient in the ED. He is tachypneic intermittently. Oral mucosa is very dry and he has a garbled speech. Clinically very dehydrated. Additional fluid boluses ordered. His lactic acid came back at 4.4. Daughter is at the bedside she claims that patient was seen normally on Thursday. Patient will be admitted to ICU with broad-spectrum antibiotics, insulin infusion per DKA protocol, and aggressive fluid resuscitation. Nephrology and cardiology consults placed for acute renal failure and troponin elevation/non- ST elevation KS. EKG showed poor R-wave progression and inferolateral T inversions. Patient was given aspirin. If troponin is also elevated and will start on IV heparin SUBJ 02/20: Oriented to person. Dehydration clinically improving. Creatinine remains elevated at 4.89, BUN improved to 84. Anion gap has closed but hydroxybutyrate normalized. Urine output noted mL since admission and after Scott placed, that is approximately 16 hours. 02/27: Patient had been transferred to hospitalist service on 02/21 and was on the floor. He was initiated on hemodialysis. Today toward the end of dialysis patient was noted to be more lethargic which was an acute change in his neurologic status. Dr. Cedeño evaluated patient and there was a question of a right facial droop. A stroke alert was called and critical care consult was requested for mental status. Head CT was negative for any bleed. Patient was noted to have borderline blood pressures during hemodialysis. He was transferred to the ICU following CAT scan where I evaluated him immediately following his arrival. At that time he was very lethargic/encephalopathic, 2 pros however moved both lower extremities as well as upper extremities with painful stimuli. He was having episodes of tachypnea intermittently. He was nonverbal and not following commands. A stat EEG was ordered as well. Patient was hypotensive following arrival with systolic blood pressure in the 70s for which she was started on Levophed and was given 250 cc normal saline bolus. Neurology consult was requested as part of stroke alert. History was obtained by reviewing records, discussion with rapid response and stroke team as well as Dr. Tamayo. 02/28: Patient is drowsy with easily arousable. He follows commands. Moves all 4 extremities. Was hypotensive yesterday requiring Levophed however currently is off pressors. RECONSULT NOTE 03/15: Reconsulted for respiratory distress and hypoxia. 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 He also has significant neurologic impairment which is baseline for the patient. He was NPO with PEG tube for dysphagia. Reportedly per nursing, his family fed him mashed potatoes last night. In addition, he has been receiving IVF at 70cc/hr for hypovolemia over the last 24h. He had worsening shortness of breath this morning for which a rapid response was called. I evaluated the patient at bedside during the rapid response. He was in distress and tachypneic on NRB with spo2 92%. Stat CXR demonstrated large right pleural effusion, small left pleural effusion. bedside critical care lung ultrasound confirmed those findings. Patient was transferred emergently to ICU. I performed emergent thoracentesis and drained 1.4L off of the right thorax. Patient had improved respiratory distress. will obtain stat CBC, BMP, Mg, Phos, Lactate. will have nephrology evaluate him for possible IHD today and stop his fluids. 03/16: intubated overnight for somnolence and obtundation, inability to protect his own airway. this morning still encephalopathic. clinically volume overloaded. needs pulmonary rehab. Objective Vital Signs Date Time Temp Pulse Resp B/P (MAP) Pulse Ox O2 Delivery O2 Flow Rate FiO2 03/16/17 16:24 100 40 03/16/17 14:00 98 03/16/17 12:31 89/52 03/16/17 12:00 98.0 18 03/15/17 16:21 Nasal Cannula 3.00 Intake and Output 03/16/17 03/16/17 03/17/17 08:00 16:00 00:00 Intake Total 1905 ml 300 ml Output Total 100 ml Balance 1805 ml 300 ml Result Diagram: 03/15/17 1210 03/16/17 0342 Other Results Microbiology Date/Time Source Procedure Growth Status 03/15/17 22:43 Urine Catheterized Urine Legionella Antigen - Final PRESUMPTIVE NEGATIVE FOR LEGIONELLA P... Complete 03/15/17 22:43 Urine Catheterized Urine Streptococcus pneumoniae Antigen (M - Final PRESUMPTIVE NEGATIVE FOR STREPTOCOCCU... Complete Laboratory Tests Test 03/15/17 17:10 03/15/17 18:30 Blood Gas Puncture Site LT RADIAL LT RADIAL Blood Gas Patient Temperature 98.6 98.6 Blood Gas HCO3 28 mmol/L (22-26) 29 mmol/L (22-26) Blood Gas Base Excess 4.5 mmol/L (-2-2) 4.4 mmol/L (-2-2) Blood Gas Oxygen Saturation 87 % (90-100) 98 % (90-100) Arterial Blood pH 7.47 (7.380-7.420) 7.41 (7.380-7.420) Arterial Blood Partial Pressure CO2 39 mmHg (38-42) 46 mmHg (38-42) Arterial Blood Partial Pressure O2 58 mmHg (61-120) 270 mmHg (61-120) Arterial Blood Oxygen Content 12.5 Vol % (12.0-20.0) 14.3 Vol % (12.0-20.0) Arterial Blood Carboxyhemoglobin 2.0 % (0-4) 1.8 % (0-4) Arterial Blood Methemoglobin 0.8 % (0-2) 0.7 % (0-2) Blood Gas Hemoglobin 10.1 G/DL (12.0-16.0) 10.0 G/DL (12.0-16.0) Oxygen Delivery Device NASAL CANNULA VENT Blood Gas Liter Flow 4 L/M Blood Gas Ventilator Setting PRVC/16/450/ Imaging Chest x-ray no acute disease CT head cortical atrophy no acute findings Objective Remarks GENERAL: 77-year-old disheveled male who is laying in bed, intubated, sedated. SKIN: Skin is warm/dry. HEAD: Atraumatic. Normocephalic. EYES: Pupils equal and round. No scleral icterus. No injection or drainage. ENT: No nasal bleeding or discharge. Oral mucosa is very dry NECK: Trachea midline. No JVD. CARDIOVASCULAR: normal rate, regular rhythm. RESPIRATORY: PRVC. full support. improved breath sounds over the right. persistent coarse rales bilaterally. GASTROINTESTINAL: Abdomen soft, non-tender, nondistended. PEG tube in place which appears clean and dry. MUSCULOSKELETAL: No obvious deformities. No clubbing. No cyanosis. No edema. NEUROLOGICAL: Encephalopathic/drowsy, RASS -3. does not follow commands. Procedures Vascath 2, central line, PEG A/P Assessment and Plan Assessment: 77yM with cardiomyopathy EF 20-25% and acute on chronic renal failure who presents with acute hypoxic respiratory failure which is recurrent. Aspiration pneumonitis is certainly in the differential, but will hold off on abx since patient clinically appears to be slightly improved, and this may be sterile aspiration as opposed to a clinical pneumonia. Will need nephrology to evaluate today in regards to possible HD for volume removal. Overall, poor prognosis and multiple palliative care discussions recommend Hospice, but family resistant to this and want full and aggressive care. plan to pursue LTAC for pulmonary rehab and continued aggressive care. NEURO: Encephalopathy Agitated Delirium - Minimize sedation. - restart haldol 2.5mg iv q4h prn for agitation. -Most likely metabolic. Head CT negative for bleed. EEG with no evidence of seizure activity. Patient has been evaluated by neurology. Started on aspirin. RESP: Acute hypoxic Respiratory Failure Large right pleural effusion Possible Aspiration pneumonitis Pulmonary Edema - DuoNeb every 6 hours when necessary, - wean o2 for goal spo2 > 90% - s/p emergent right thoracentesis 03/15 with 1.4L fluid removed, fluid studies pending. - aggressive pulmonary toilet. CV: NSTEMI during this admission History of Hypertension -d/c mivf. -Dr. Quintanilla from cardiology has evaluated patient previously. - Aspirin 81 mg daily. - Avoid statins due to transaminitis GI: Acute protein calorie malnutrition - severe - restart TF - strict NPO from above. - speech following. : Acute on chronic kidney disease requiring renal replacement therapy Volume overload -Strict intake output, monitor and replete electrolites, follow BUN/creatinine - Nephrology consulted Dr. Quintanilla seeing. Patient on hemodialysis for clearance - may need IHD today. will leave to Nephrology to decide. - d/c ivf. ID: Possible Aspiration pneumonitis - porter culture - hold off on starting abx unless other objective data to suggest infected. afebrile. f/u cbc, lactate. - may be sterile aspiration at this point, and resp distress is clearly multifactorial including effusion and volume overload. HEME: Anemia Mild thrombocytopenia -Monitor CBC, CMP -B12 normal, iron studies indicate anemia of chronic disease ENDO: Diabetes mellitus DKA-resolved - Continue sliding scale insulin, Levemir PROPH: - Bilateral lower extremity SCDs. Heparin 5000 units sq q12. Monitor platelet count closely - no indication for GI prophylaxis at this time. LINES: - left IJ vascath. PIV. condom cath. Brenton Olivia MD Mar 16, 2017 16:34
--- NOTE | 2017-03-16 16:48 | HHI.DS ---
Discharge Summary Admission Date Feb 19, 2017 at 14:20 Admitting Diagnosis AMS, acute renal failure, non-STEMI, hypernatremic dehydration (1) Acute metabolic encephalopathy ICD Code: G93.41 - Metabolic encephalopathy Diagnosis: Principal (2) Altered mental status ICD Code: R41.82 - Altered mental status, unspecified Diagnosis: Principal Status: Acute (3) DKA (diabetic ketoacidoses) ICD Code: E13.10 - Other specified diabetes mellitus with ketoacidosis without coma Diagnosis: Principal Status: Resolved (4) Non-STEMI (non-ST elevated myocardial infarction) ICD Code: I21.4 - Non-ST elevation (NSTEMI) myocardial infarction Diagnosis: Principal Status: Acute (5) Dehydration with hypernatremia ICD Code: E87.0 - Hyperosmolality and hypernatremia Diagnosis: Principal Status: Resolved (6) Sepsis ICD Code: A41.9 - Sepsis, unspecified organism Diagnosis: Principal Status: Acute (7) UTI (urinary tract infection) ICD Code: N39.0 - Urinary tract infection, site not specified Diagnosis: Principal Status: Acute (8) Acute renal failure ICD Code: N17.9 - Acute kidney failure, unspecified Diagnosis: Principal Status: Acute (9) Hyperglycemia ICD Code: R73.9 - Hyperglycemia, unspecified Diagnosis: Principal Status: Acute (10) Lactic acidemia ICD Code: E87.2 - Acidosis Diagnosis: Principal (11) Transaminitis ICD Code: R74.0 - Nonspecific elevation of levels of transaminase and lactic acid dehydrogenase [LDH] Diagnosis: Principal (12) Respiratory insufficiency ICD Code: R06.89 - Other abnormalities of breathing Diagnosis: Principal Procedures Vascath 2, central line, PEG Brief History 77-year-old male with past medical history significant for type 2 diabetes on insulin, hypertension, dyslipidemia, questionable developmental delay who was brought to the emergency room after being found down in his apartment. Down time is unknown, was last seen normal on Thursday. GCS of 12-13 as per EMS, with very poor hygiene. EMS checked blood sugar and was 560. Patient was tachypneic in the ER. Clinically appeared very dehydrated, and was found to be in acute renal failure (baseline creat 1.8 to 2). BUN 93 creatinine 5.3. Patient was given 3 L normal saline boluses. Other abnormal labs included hemoglobin of 10.6, platelet 97, sodium 147 and a potassium of 5.5. Glucose was 592 AST was 261 and AST 351 and troponin was 1.88. Head CT was negative. Patient's beta hydroxybutyrate was elevated and anion gap was also elevated. Patient was given 10 units of IV insulin and was started on DKA protocol. Also given vancomycin and Zosyn for possible sepsis/UTI. I evaluated the patient in the ED. He is tachypneic intermittently. Oral mucosa is very dry and he has a garbled speech. Clinically very dehydrated. Additional fluid boluses ordered. His lactic acid came back at 4.4. Daughter is at the bedside she claims that patient was seen normally on Thursday. Patient will be admitted to ICU with broad-spectrum antibiotics, insulin infusion per DKA protocol, and aggressive fluid resuscitation. Nephrology and cardiology consults placed for acute renal failure and troponin elevation/non- ST elevation [place]. EKG showed poor R-wave progression and inferolateral T inversions. Patient was given aspirin. If troponin is also elevated and will start on IV heparin CBC/BMP: 03/15/17 1210 03/16/17 0342 Significant Findings Laboratory Tests Test 03/14/17 10:50 03/15/17 09:06 03/15/17 10:22 03/15/17 11:20 Blood Urea Nitrogen 65 MG/DL (7-18) Creatinine 4.70 MG/DL (0.60-1.30) Random Glucose 361 MG/DL (74-106) Albumin 2.3 GM/DL (3.4-5.0) Calcium Level 8.2 MG/DL (8.5-10.1) Sodium Level 135 MEQ/L (136-145) Estimat Glomerular Filtration Rate 15 ML/MIN (>89) Blood Gas HCO3 30 mmol/L (22-26) Blood Gas Base Excess 6.3 mmol/L (-2-2) Arterial Blood pH 7.47 (7.380-7.420) Arterial Blood Partial Pressure O2 253 mmHg (61-120) Blood Gas Hemoglobin 8.6 G/DL (12.0-16.0) Urine Protein GREATER THAN 600 mg/dL Urine Glucose (UA) 300 mg/dL (NEG) Urine Occult Blood MOD (NEG) Urine RBC 115 /hpf (0-3) Urine Mucus FEW /lpf (OCC) Pleural Fluid RBC 435 /MM3 (0-0) Test 03/15/17 11:22 03/15/17 12:10 03/15/17 17:10 03/15/17 18:30 Red Blood Count 3.17 MIL/MM3 (4.50-5.90) Hemoglobin 9.8 GM/DL (13.0-17.0) Hematocrit 29.9 % (39.0-51.0) Red Cell Distribution Width 20.0 % (11.6-17.2) Blood Urea Nitrogen 72 MG/DL (7-18) Creatinine 5.20 MG/DL (0.60-1.30) Random Glucose 282 MG/DL (74-106) Potassium Level 3.2 MEQ/L (3.5-5.1) Chloride Level 97 MEQ/L (98-107) Estimat Glomerular Filtration Rate 13 ML/MIN (>89) B-Type Natriuretic Peptide 4470 PG/ML (0-100) Blood Gas HCO3 28 mmol/L (22-26) 29 mmol/L (22-26) Blood Gas Base Excess 4.5 mmol/L (-2-2) 4.4 mmol/L (-2-2) Blood Gas Oxygen Saturation 87 % (90-100) Arterial Blood pH 7.47 (7.380-7.420) Arterial Blood Partial Pressure O2 58 mmHg (61-120) 270 mmHg (61-120) Blood Gas Hemoglobin 10.1 G/DL (12.0-16.0) 10.0 G/DL (12.0-16.0) Arterial Blood Partial Pressure CO2 46 mmHg (38-42) Test 03/16/17 03:42 03/16/17 16:12 Blood Urea Nitrogen 79 MG/DL (7-18) Creatinine 5.07 MG/DL (0.60-1.30) Random Glucose 252 MG/DL (74-106) Calcium Level 7.8 MG/DL (8.5-10.1) Estimat Glomerular Filtration Rate 13 ML/MIN (>89) Lactic Acid Level 3.5 mmol/L (0.4-2.0) PE at Discharge GENERAL: WD WN patient in no distress SKIN: No rash or lesions NECK: Trachea midline. No JVD. No Stridor CARDIOVASCULAR: Regular rate and rhythm. Systolic murmur noted RESPIRATORY: No accessory muscle use. Decreased Breath sounds equal bilaterally. GASTROINTESTINAL: Abdomen soft, non-tender, nondistended. MUSCULOSKELETAL: Extremities without clubbing, cyanosis, or edema. No obvious deformities. NEUROLOGICAL: Lethargic. Generalized weakness. Not following commands Hospital Course 77-year-old male with past medical history significant for type 2 diabetes on insulin, hypertension, dyslipidemia, questionable developmental delay who was brought to the emergency room after being found down in his apartment. Down time is unknown, was last seen normal on Thursday. GCS of 12-13 as per EMS, with very poor hygiene. EMS checked blood sugar and was 560. Patient was tachypneic in the ER. Clinically appeared very dehydrated, and was found to be in acute renal failure (baseline creat 1.8 to 2). BUN 93 creatinine 5.3. Patient was given 3 L normal saline boluses. Other abnormal labs included hemoglobin of 10.6, platelet 97, sodium 147 and a potassium of 5.5. Glucose was 592 AST was 261 and AST 351 and troponin was 1.88. Head CT was negative. Patient's beta hydroxybutyrate was elevated and anion gap was also elevated. Patient was given 10 units of IV insulin and was started on DKA protocol. Also given vancomycin and Zosyn for possible sepsis/UTI. I evaluated the patient in the ED. He is tachypneic intermittently. Oral mucosa is very dry and he has a garbled speech. Clinically very dehydrated. Additional fluid boluses ordered. His lactic acid came back at 4.4. Daughter is at the bedside she claims that patient was seen normally on Thursday. Patient will be admitted to ICU with broad-spectrum antibiotics, insulin infusion per DKA protocol, and aggressive fluid resuscitation. Nephrology and cardiology consults placed for acute renal failure and troponin elevation/non- ST elevation [place]. EKG showed poor R-wave progression and inferolateral T inversions. Patient was given aspirin. If troponin is also elevated and will start on IV heparin SUBJ 02/20: Oriented to person. Dehydration clinically improving. Creatinine remains elevated at 4.89, BUN improved to 84. Anion gap has closed but hydroxybutyrate normalized. Urine output noted mL since admission and after Scott placed, that is approximately 16 hours. 02/27: Patient had been transferred to hospitalist service on 02/21 and was on the floor. He was initiated on hemodialysis. Today toward the end of dialysis patient was noted to be more lethargic which was an acute change in his neurologic status. Dr. Cedeño evaluated patient and there was a question of a right facial droop. A stroke alert was called and critical care consult was requested for mental status. Head CT was negative for any bleed. Patient was noted to have borderline blood pressures during hemodialysis. He was transferred to the ICU following CAT scan where I evaluated him immediately following his arrival. At that time he was very lethargic/encephalopathic, 2 pros however moved both lower extremities as well as upper extremities with painful stimuli. He was having episodes of tachypnea intermittently. He was nonverbal and not following commands. A stat EEG was ordered as well. Patient was hypotensive following arrival with systolic blood pressure in the 70s for which she was started on Levophed and was given 250 cc normal saline bolus. Neurology consult was requested as part of stroke alert. History was obtained by reviewing records, discussion with rapid response and stroke team as well as Dr. Tamayo. 02/28: Patient is drowsy with easily arousable. He follows commands. Moves all 4 extremities. Was hypotensive yesterday requiring Levophed however currently is off pressors. RECONSULT NOTE 03/15: Reconsulted for respiratory distress and hypoxia. This is a 77yM known to the [facility] with a history if cardiomyopathy and an EF 20-25%, acute on chronic renal failure now requiring renal replacement therapy. He also has significant neurologic impairment which is baseline for the patient. He was NPO with PEG tube for dysphagia. Reportedly per nursing, his family fed him mashed potatoes last night. In addition, he has been receiving IVF at 70cc/hr for hypovolemia over the last 24h. He had worsening shortness of breath this morning for which a rapid response was called. I evaluated the patient at bedside during the rapid response. He was in distress and tachypneic on NRB with spo2 92%. Stat CXR demonstrated large right pleural effusion, small left pleural effusion. bedside critical care lung ultrasound confirmed those findings. Patient was transferred emergently to ICU. I performed emergent thoracentesis and drained 1.4L off of the right thorax. Patient had improved respiratory distress. will obtain stat CBC, BMP, Mg, Phos, Lactate. will have nephrology evaluate him for possible IHD today and stop his fluids. 03/16: intubated overnight for somnolence and obtundation, inability to protect his own airway. this morning still encephalopathic. clinically volume overloaded. needs pulmonary rehab. Accepted by [facility] for rehab. stable for transport for ongoing aggressive care. Pt Condition on Discharge: Stable Discharge Disposition: Trnsfr to Other Facility Discharge Instructions DIET: Follow Instructions for: On Tube Feeding Activities you can perform: Regular-No Restrictions Brenton Olivia MD Mar 16, 2017 16:48
--- NOTE | 2017-03-16 16:58 | HHI.HCPN ---
Reason for visit a. To assist with evaluation and management of symptoms including: Agitation, restlessness, encephalopathy b. To assist medical decision maker(s) with: better understanding of current medical conditions; weighing benefits/burdens of medical treatment options; making medical treatment decisions. . Subjective/Interval History INTERVAL NOTE: Yesterday, the patient again developed dyspnea, was transferred back to the [facility] , and had hypoxia requiring emergent intubation. He was noted to have pleural effusions and underwent a thoracentesis. He remains afebrile, normal white count, follow-up chest x-ray okay. The patient's family continues to want aggressive care, including impending transfer to [facility] now. . Family/friend interactions Family continues to see you hoping for improvement and wants to continue aggressive care. . Advance Directives Living Will: Never completed Health Care Surrogate: Never completed Durable Power of Pediatric Occupational Therapist: Never completed Objective Vital Signs Date Time Temp Pulse Resp B/P (MAP) Pulse Ox O2 Delivery O2 Flow Rate FiO2 03/16/17 16:24 100 40 03/16/17 14:00 98 03/16/17 12:31 85 89/52 03/16/17 12:17 100 50 03/16/17 12:00 89 03/16/17 12:00 98.0 89 18 100/57 (71) 100 03/16/17 12:00 60 03/16/17 10:00 89 03/16/17 09:17 96 60 03/16/17 08:00 98.2 90 18 95/51 (66) 100 03/16/17 08:00 90 03/16/17 08:00 60 03/16/17 06:00 89 03/16/17 05:23 100 60 03/16/17 04:00 60 03/16/17 04:00 98.0 91 18 93/52 (66) 100 03/16/17 04:00 91 03/16/17 02:00 100 03/16/17 01:17 94 101/53 03/16/17 01:02 94 101/59 03/16/17 00:19 96 82/52 03/16/17 00:11 100 60 03/16/17 00:00 70 03/16/17 00:00 86 03/16/17 00:00 98.4 96 18 86/56 (66) 100 03/15/17 23:51 100 87/52 03/15/17 23:02 101 86/53 03/15/17 22:00 103 03/15/17 20:34 100 70 03/15/17 20:00 70 03/15/17 20:00 97 03/15/17 20:00 98.2 98 18 92/51 (65) 100 03/15/17 18:00 103 03/15/17 17:39 100 100 Intake & Output 03/16/17 03/16/17 07:00 19:00 Intake Total 3905 ml 300 ml Output Total 200 ml Balance 3705 ml 300 ml IV Total 3350 ml 300 ml Tube Feeding 555 ml Output Urine Total 100 ml Stool Total 100 ml # Bowel Movements 2 Physical Exam CONSTITUTIONAL/GENERAL: This is an elderly, weak,lethargic patient, confused; intubated in ISC TUBES/LINES/DRAINS: Vas-Cath left neck, supplemental oxygen, NG tube NECK: Trachea midline. CARDIOVASCULAR: Regular rate and rhythm without murmurs, gallops, or rubs. No JVD. RESPIRATORY/CHEST: Symmetric respirations. Lungs are clear -- wheezy sound very much upper airway. GASTROINTESTINAL: Abdomen soft, non-tender, nondistended. No hepato-splenomegaly , or palpable masses. No guarding. Bowel sounds hypoactive GENITOURINARY: Without palpable bladder distension. MUSCULOSKELETAL: Extremities without clubbing, cyanosis, or edema. NEUROLOGICAL: Sedated, essentially unresponsive PSYCHIATRIC: Unable to evaluate due to her clinical condition . Diagnostic Tests Laboratory Laboratory Tests Test 03/14/17 10:50 03/15/17 09:06 03/15/17 10:22 03/15/17 11:20 Blood Urea Nitrogen 65 MG/DL (7-18) Creatinine 4.70 MG/DL (0.60-1.30) Random Glucose 361 MG/DL (74-106) Albumin 2.3 GM/DL (3.4-5.0) Calcium Level 8.2 MG/DL (8.5-10.1) Phosphorus Level 2.5 MG/DL (2.5-4.9) Sodium Level 135 MEQ/L (136-145) Potassium Level 3.6 MEQ/L (3.5-5.1) Chloride Level 98 MEQ/L (98-107) Carbon Dioxide Level 28.8 MEQ/L (21.0-32.0) Anion Gap 8 MEQ/L (5-15) Estimat Glomerular Filtration Rate 15 ML/MIN (>89) Blood Gas Puncture Site LT RADIAL Blood Gas Patient Temperature 98.6 Blood Gas HCO3 30 mmol/L (22-26) Blood Gas Base Excess 6.3 mmol/L (-2-2) Blood Gas Oxygen Saturation 98 % (90-100) Arterial Blood pH 7.47 (7.380-7.420) Arterial Blood Partial Pressure CO2 42 mmHg (38-42) Arterial Blood Partial Pressure O2 253 mmHg (61-120) Arterial Blood Oxygen Content 12.4 Vol % (12.0-20.0) Arterial Blood Carboxyhemoglobin 2.1 % (0-4) Arterial Blood Methemoglobin 0.6 % (0-2) Blood Gas Hemoglobin 8.6 G/DL (12.0-16.0) Oxygen Delivery Device Non-Rebreathing Mask Blood Gas Liter Flow 15 L/M Blood Gas Inspired Oxygen 100 % Urine Color YELLOW (YELLW/STRAW) Urine Turbidity CLEAR (CLEAR) Urine pH 8.5 (5.0-8.5) Urine Specific [place] 1.013 (1.002-1.035) Urine Protein GREATER THAN 600 mg/dL Urine Glucose (UA) 300 mg/dL (NEG) Urine Ketones NEG mg/dL (NEG) Urine Occult Blood MOD (NEG) Urine Nitrite NEG (NEG) Urine Bilirubin NEG (NEG) Urine Urobilinogen LESS THAN 2.0 MG/DL (LESS Urine Leukocyte Esterase NEG (NEG) Urine RBC 115 /hpf (0-3) Urine WBC 4 /hpf (0-5) Urine Transitional Epithelial Cells 1 /hpf (NONE) Urine Mucus FEW /lpf (OCC) Microscopic Urinalysis Comment CATH-CULT NOT IND Pleural Fluid WBC 10 /MM3 (0-10) Pleural Fluid RBC 435 /MM3 (0-0) Pleural Fluid Neutrophils 25 % Pleural Fluid Lymphocytes 75 % Pleural Fluid Total Protein 1.8 GM/DL Pleural Fluid Albumin 0.9 G/DL Pleural Fluid LDH 65 U/L Pleural Fluid Glucose 233 MG/DL Test 03/15/17 11:22 03/15/17 12:10 03/15/17 17:10 03/15/17 18:30 Nasal Screen MRSA (PCR) MRSA NOT DETECTED (NOT White Blood Count 4.7 TH/MM3 (4.0-11.0) Red Blood Count 3.17 MIL/MM3 (4.50-5.90) Hemoglobin 9.8 GM/DL (13.0-17.0) Hematocrit 29.9 % (39.0-51.0) Mean Corpuscular Volume 94.4 FL (80.0-100.0) Mean Corpuscular Hemoglobin 30.9 PG (27.0-34.0) Mean Corpuscular Hemoglobin Concent 32.8 % (32.0-36.0) Red Cell Distribution Width 20.0 % (11.6-17.2) Platelet Count 158 TH/MM3 (150-450) Mean Platelet Volume 9.5 FL (7.0-11.0) Blood Urea Nitrogen 72 MG/DL (7-18) Creatinine 5.20 MG/DL (0.60-1.30) Random Glucose 282 MG/DL (74-106) Calcium Level 8.7 MG/DL (8.5-10.1) Phosphorus Level 2.8 MG/DL (2.5-4.9) Magnesium Level 2.2 MG/DL (1.5-2.5) Sodium Level 136 MEQ/L (136-145) Potassium Level 3.2 MEQ/L (3.5-5.1) Chloride Level 97 MEQ/L (98-107) Carbon Dioxide Level 31.0 MEQ/L (21.0-32.0) Anion Gap 8 MEQ/L (5-15) Estimat Glomerular Filtration Rate 13 ML/MIN (>89) Lactic Acid Level 2.0 mmol/L (0.4-2.0) B-Type Natriuretic Peptide 4470 PG/ML (0-100) Blood Gas Puncture Site LT RADIAL LT RADIAL Blood Gas Patient Temperature 98.6 98.6 Blood Gas HCO3 28 mmol/L (22-26) 29 mmol/L (22-26) Blood Gas Base Excess 4.5 mmol/L (-2-2) 4.4 mmol/L (-2-2) Blood Gas Oxygen Saturation 87 % (90-100) 98 % (90-100) Arterial Blood pH 7.47 (7.380-7.420) 7.41 (7.380-7.420) Arterial Blood Partial Pressure CO2 39 mmHg (38-42) 46 mmHg (38-42) Arterial Blood Partial Pressure O2 58 mmHg (61-120) 270 mmHg (61-120) Arterial Blood Oxygen Content 12.5 Vol % (12.0-20.0) 14.3 Vol % (12.0-20.0) Arterial Blood Carboxyhemoglobin 2.0 % (0-4) 1.8 % (0-4) Arterial Blood Methemoglobin 0.8 % (0-2) 0.7 % (0-2) Blood Gas Hemoglobin 10.1 G/DL (12.0-16.0) 10.0 G/DL (12.0-16.0) Oxygen Delivery Device NASAL CANNULA VENT Blood Gas Liter Flow 4 L/M Blood Gas Ventilator Setting [facility]// Test 03/16/17 03:42 03/16/17 16:12 Blood Urea Nitrogen 79 MG/DL (7-18) Creatinine 5.07 MG/DL (0.60-1.30) Random Glucose 252 MG/DL (74-106) Calcium Level 7.8 MG/DL (8.5-10.1) Sodium Level 140 MEQ/L (136-145) Potassium Level 3.9 MEQ/L (3.5-5.1) Chloride Level 101 MEQ/L (98-107) Carbon Dioxide Level 25.1 MEQ/L (21.0-32.0) Anion Gap 14 MEQ/L (5-15) Estimat Glomerular Filtration Rate 13 ML/MIN (>89) Lactic Acid Level 3.5 mmol/L (0.4-2.0) Result Diagram: 03/15/17 1210 03/16/17 0342 Microbiology Microbiology Date/Time Source Procedure Growth Status 03/15/17 12:10 Blood Peripheral Aerobic Blood Culture - Preliminary NO GROWTH IN 1 DAY Resulted 03/15/17 12:10 Blood Peripheral Anaerobic Blood Culture - Preliminary NO GROWTH IN 1 DAY Resulted 03/15/17 12:00 Blood Peripheral Aerobic Blood Culture - Preliminary NO GROWTH IN 1 DAY Resulted 03/15/17 12:00 Blood Peripheral Anaerobic Blood Culture - Preliminary NO GROWTH IN 1 DAY Resulted 03/15/17 11:20 Fluid Pleural Fluid Gram Stain - Final Resulted 03/15/17 11:20 Fluid Pleural Fluid Body Fluid Culture - Preliminary NO GROWTH IN 24 HOURS. Resulted 03/15/17 22:05 Sputum Endotracheal Gram Stain - Final Resulted 03/15/17 22:05 Sputum Endotracheal Sputum Culture - Preliminary IMMATURE GROWTH - REINCUBATE Resulted 03/15/17 17:30 Sputum Endotracheal Gram Stain - Final Resulted 03/15/17 17:30 Sputum Culture - Preliminary Gram Negative Jaime Resulted 03/15/17 22:43 Urine Catheterized Urine Legionella Antigen - Final PRESUMPTIVE NEGATIVE FOR LEGIONELLA P... Complete 03/15/17 22:43 Urine Catheterized Urine Streptococcus pneumoniae Antigen (M - Final PRESUMPTIVE NEGATIVE FOR STREPTOCOCCU... Complete 03/15/17 22:43 Urine Catheterized Urine Urine Culture - Preliminary NO GROWTH IN 24 HOURS. Resulted 03/15/17 15:46 Urine Random Urine Acid Fast Stain Pending Resulted 03/15/17 15:46 Urine Random Urine Mycobacterial Culture - Preliminary Resulted Imaging Last Impressions Chest X-Ray 03/15/17 0000 Signed Impressions: Service Date/Time: Wednesday, March 15, 2017 17:36 - CONCLUSION: Worsening appearance of the chest with bilateral infiltrates noted. Jovanny Reynoso MD Abdomen X-Ray 03/08/17 0000 Signed Impressions: Service Date/Time: Wednesday, March 08, 2017 18:51 - CONCLUSION: Interval advancement of nasogastric tube into the stomach. Richard Bess MD Soft Tissue Neck X-Ray 03/05/17 0000 Signed Impressions: Service Date/Time: February 15:18 - CONCLUSION: Limited exam. No acute abnormality. Dontrell Mcqueen Jr., MD Head CT 02/27/17 0000 Signed Impressions: Service Date/Time: Monday, February 27, 2017 12:47 - CONCLUSION: 1. No acute intracranial abnormality is identified. There are no findings to indicate ischemia and no acute blood products are present. 2. Chronic brain changes include generalized atrophy and periventricular white matter change characteristic of chronic microvascular ischemia. 3. There is trace air within the cavernous sinus bilaterally and in the left superior ophthalmic vein likely related to IV access. Flakito Silva MD Carotid Artery Ultrasound 02/27/17 0000 Signed Impressions: Service Date/Time: Monday, February 27, 2017 14:35 - CONCLUSION: 1. Severe noncalcified plaque in the left carotid bulb and left internal carotid artery with a possible complete occlusion of the left internal carotid artery. No Doppler signal is identified in the vessel which could indicate complete occlusion or severe high-grade stenosis. Consider carotid CTA for further evaluation. 2. There is mild to moderate noncalcified plaque in the right carotid bulb. Less than 50%% stenosis is present within the right internal carotid artery. 3. Please note that the right external carotid artery is not visualized. Flakito Silva MD Hepatobiliary Scan Nuclear Medicine 02/24/17 0000 Signed Impressions: Service Date/Time: Friday, February 24, 2017 12:33 - CONCLUSION: 1. Lack of visualization of the gallbladder. We will have the patient return for delayed imaging. At this point acute cholecystitis versus chronic cholecystitis. Dontrell Mcqueen Jr., MD ADDENDUM: 24-hour delayed imaging shows activity within the gallbladder. This would be consistent with chronic cholecystitis. Dontrell Mcqueen Jr., MD Liver Ultrasound 02/20/17 0000 Signed Impressions: Service Date/Time: Monday, February 20, 2017 10:51 - CONCLUSION: Gallstones and gallbladder wall thickening. There is no intrahepatic biliary duct dilatation. Rylan Wang MD FACR Renal Ultrasound 02/19/17 0000 Signed Impressions: Service Date/Time: February 17:19 - CONCLUSION: No evidence of hydronephrosis. Indwelling Scott catheter with collapsed bladder in thickened bladder wall. Cal Tomlinson MD Procedures Left subclavian line 02/19/17 Vas-Cath placement 02/21/17 Vas cath placement 03/05/17 Central line placement 03/05/17 INTUBATION 03/15/17 . Assessment and Plan Disease Oriented Problem List: (1) respiratory failure, recurrent Comment: Reintubated 03/15/17 (2) encephalopathy, likely due to multiple medical issues, sepsis, renal failure (3) acute renal failure, history of chronic kidney disease; possible ATN (4) elevated transaminases and abnormal HIDA scan Comment: Hepatobiliary scan from 02/24/17 consistent with chronic cholecystitis. LFTs improving but not normal. . 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 One daughter and 3 sons, estranged from the 3 sons. Spiritual: Not spiritual congregation but daughter does want motor vehicle compliance analyst visits for him. Legal: The patient lacks capacity for decision-making, and it is uncertain whether he will regain that capacity. He has 4 children, but is estranged from his 3 sons, and they have thus far been unwilling to speak with us or participate in decision-making. Therefore, the patient's daughter Jakub Crawford is his proxy decision-maker. We have made it clear that we are available to speak with any of his sons if they call. Ethical issues impacting care: No known ethical issues. . Important Contacts Daughter/HCP: Jakub Crawford [phone] Granddaughter: Renae Rocha [phone] . Prognosis Patient has been able to improve during the course of the hospitalization, but now having setbacks. Overall clinical picture would suggest high likelihood of ongoing decline and need for recurrent hospitalizations should he survive this one. . . . Code Status: Full Code Plan == FULL CODE - daughter was encouraged by his initial improvement , still sees him as having the potential for recovery and continues to desire full aggressive care including the impending transfer to [facility]. == DECISION-MAKING: The patient lacks capacity for decision-making, and the patient's daughter Jakub Crawford is his proxy decision-maker. == GOALS: Goals remains aggressive. The plan is to transfer to [facility] later today for ongoing care. == SYMPTOMS: * Agitation/ encephalopathy/confusion-- multifactorial, encephalopathy, renal disease, general decline. Not new med recommendation at this time. * Dyspnea, again being managed via mechanical ventilation == Palliative care will continue to follow the patient during this hospitalization Time Spent Total Floor Time (mins): 36 Face to Face Time (mins): 13 >50% Counseling/Coord of Care: Yes (d/w RN and w Dr. Olivia) Attestation To help prompt me to consider important information that might be impacting today's encounter and assessment, information from prior notes written by myself or my colleagues may have been "brought forward" into today's note. My signature on this note, however, is an attestation that I personally performed the exam, history, and/or decision-making noted today, and, unless otherwise indicated, the interactions with patient, family, and staff as well as the review of records all occurred today. I also attest that the listed assessment and stated plan reflect my best clinical judgment today based on the combination of historical information, prior notes, and today's exam/ interactions. When time spent is documented, it refers only to time spent today by the signer, or if indicated, combined time spent today by collaborating physician/nurse practitioner. Shaneka Sandy MD Mar 16, 2017 16:58
[2017-03-16] MEDS: HEPARIN SODIUM - IV 10,000 UNITS/10 ML VIAL PRN ×2 (22:17)
[2017-03-16] MEDS: GENTAMICIN SULFATE (DIALYSIS USE ONLY) 20 MG/2 ML VIAL OTHER PRN ×2 (22:18)
[2017-03-16] MEDS: EPOETIN ALFA 10,000 UNITS/ML VIAL IV PUSH PRN ×2 (22:19)
[2017-03-16] MEDS: AZITHROMYCIN INJ 500 MG in SODIUM CHLOR 0.9% 250 ML INJ 250 ML IV SCH ×8 (22:41→23:20)
[2017-03-17] VITALS: BP 105/58; PULSE 98; RESP 18; TEMP 97.9; O2SAT 100
[2017-03-17 02:00] VITALS: PULSE 96
[2017-03-17] MEDS: CHLORHEXIDINE GLUCONATE 2 % 1 PACK (2 CLOTHS) TOP SCH ×2 (02:37)
[2017-03-17 03:14] VITALS: O2SAT 100
[2017-03-17 04:00] VITALS: BP 106/53; PULSE 90; RESP 18; TEMP 98; O2SAT 100
[2017-03-17] MEDS: PIPERACIL-TAZO 2.25 GM PREMIX 50 ML IV SCH ×2 (04:08)
[2017-03-17 04:53] LABS: ALBUMIN 2.1 GM/DL (3.4-5.0); BICARBONATE 27.3 MEQ/L (21.0-32.0); CREATININE 3.88 MG/DL (0.60-1.30); PHOSPHORUS 2.4 MG/DL (2.5-4.9)
[2017-03-17 05:34] VITALS: BP 103/54; PULSE 88
[2017-03-17] MEDS: NOREPINEPHRINE-DEXTROSE DRIP 250 ML IV PRN ×2 (05:34)
[2017-03-17] MEDS: fentaNYL DRIP 250 ML IV PRN ×2 (05:34)
== END 2017-03-17 06:26 | DRG 637 ==
LOC: NEPC 11:25 → NEDA 14:20 → HIME 18:00 → N04A 02-26 17:06 → N03B 02-27 13:31 → N04A 03-01 15:29 → N03A 03-06 06:35 → N04B 03-09 14:47 → N03A 03-15 09:23
PROVIDERS: ADMIT Internal Medicine Critical Care Medicine; ATTEND Internal Medicine Critical Care Medicine
PROC: 05H633Z Insertion of Infusion Device into Left Subclavian Vein, Percutaneous Approach (ICD-10-PCS; 2017-02-19)
PROC: 02HV33Z Insertion of Infusion Device into Superior Vena Cava, Percutaneous Approach (ICD-10-PCS; principal; 2017-02-21)
PROC: 5A1D70Z Performance of Urinary Filtration, Intermittent, Less than 6 Hours Per Day (ICD-10-PCS; 2017-02-23)
PROC: 02HV33Z Insertion of Infusion Device into Superior Vena Cava, Percutaneous Approach (ICD-10-PCS; 2017-03-06)
PROC: 30233N1 Transfusion of Nonautologous Red Blood Cells into Peripheral Vein, Percutaneous Approach (ICD-10-PCS; 2017-03-06)
PROC: 0DH63UZ Insertion of Feeding Device into Stomach, Percutaneous Approach (ICD-10-PCS; 2017-03-09)
PROC: 5A1945Z Respiratory Ventilation, 24-96 Consecutive Hours (ICD-10-PCS; 2017-03-15)
PROC: 0W993ZZ Drainage of Right Pleural Cavity, Percutaneous Approach (ICD-10-PCS; 2017-03-15)
PROC: 0BH17EZ Insertion of Endotracheal Airway into Trachea, Via Natural or Artificial Opening (ICD-10-PCS; 2017-03-15)
PROC: 06HM33Z Insertion of Infusion Device into Right Femoral Vein, Percutaneous Approach (ICD-10-PCS; 2017-03-16)
DX: E11.10 Type 2 diabetes mellitus with ketoacidosis without coma (principal); A41.9 Sepsis, unspecified organism; I21.4 Non-ST elevation (NSTEMI) myocardial infarction; N17.0 Acute kidney failure with tubular necrosis; J96.01 Acute respiratory failure with hypoxia; D65 Disseminated intravascular coagulation [defibrination syndrome]; J69.0 Pneumonitis due to inhalation of food and vomit; G93.41 Metabolic encephalopathy; E43 Unspecified severe protein-calorie malnutrition; J90 Pleural effusion, not elsewhere classified; E87.0 Hyperosmolality and hypernatremia; B37.0 Candidal stomatitis; I42.9 Cardiomyopathy, unspecified; K80.10 Calculus of gallbladder with chronic cholecystitis without obstruction; N39.0 Urinary tract infection, site not specified; E86.0 Dehydration; E78.5 Hyperlipidemia, unspecified; E86.1 Hypovolemia; E87.5 Hyperkalemia; E87.6 Hypokalemia; E11.649 Type 2 diabetes mellitus with hypoglycemia without coma; R13.10 Dysphagia, unspecified; D69.59 Other secondary thrombocytopenia; D63.8 Anemia in other chronic diseases classified elsewhere; R19.7 Diarrhea, unspecified; K44.9 Diaphragmatic hernia without obstruction or gangrene; I12.9 Hypertensive chronic kidney disease with stage 1 through stage 4 chronic kidney disease, or unspecified chronic kidney disease; N18.9 Chronic kidney disease, unspecified; R74.0 Nonspecific elevation of levels of transaminase and lactic acid dehydrogenase [LDH]; I50.9 Heart failure, unspecified; I95.9 Hypotension, unspecified; E87.70 Fluid overload, unspecified; Z79.4 Long term (current) use of insulin; Z23 Encounter for immunization
CPT/HCPCS: 31500; 36430; 36556; 36600; 51702; 70360; 70450; 71010; 74000; 76705; 76775; 76937; 78226; 80048; 80053; 80061; 80069; 80074; 80076; 80307; 81001; 82010; 82040; 82042; 82043; 82140; 82435; 82550; 82552; 82565; 82607; 82805; 82945; 82947; 82948; 83036; 83540; 83550; 83605; 83615; 83735; 83880; 84100; 84132; 84157; 84295; 84443; 84484; 84520; 85007; 85025; 85027; 85379; 85384; 85610; 85730; 86850; 86900; 86901; 86920; 87015; 87040; 87070; 87077; 87086; 87116; 87186; 87205; 87206; 87449; 87493; 87641; 89051; 90686; 90935; 93005; 93225; 93226; 93306; 93880; 94002; 94003; 94640; 94664; 95819; 96361; 96374; 96375; 99292; A9537; C9113; J0456; J1580; J1644; J1815; J1817; J1956; J2060; J2150; J2250; J2543; J3010; J3370; J3480; J7030; J7040; J7042; J7050; J7070; P9016; P9045; P9047; Q2038; Q4081